=== PATIENT | female | born 1955 | race Hispanic/Latino ===

== ENCOUNTER → 2016-10-23 | Outpatient (CLI) | payer MEDICAID ==
[~2016-10-23] MED LIST: ACYC800T PO; AMITRIP TOP; ASPI-587 PO; ATEN-155 PO; ATEN25TA PO; ATOV750O4 PO; BENZ200C25 PO; CARB15DR74 OU; CARB1DRO4 OP; CHOL10003 PO; CIPR-225 PO; CLON0.5T3 PO; D50KC PO; EMU OIL TOP; FAMO-119 PO; FAMO20TA5 PO; GABA TOP; GLIP10TA13 PO; HYDR500C2 PO; INSU100I10 SQ; INSU100I14 SQ; INSU100I29 SQ; LEVO100T7 PO; LEVO500T2 PO; LEVO500T69 PO; LEVO50TA6 PO; MAGN400T29 PO; METF1000 PO; METO5TAB75 PO; MINE114O TP; NFVALG450T PO; OMEG1CAP51 PO; OMEP40CA36 PO; ONDA4TAB8 PO; ONDA8TAB9 PO; POSA100T PO; POTA-51 PO; POTA20TA15 PO; PRAV20TA PO; PRD10T PO; PRED-501 PO; SENN-20 PO; SODI650T PO; VALG450T3 PO
--- OUTSIDE RECORDS SUMMARY | 2016-10-23 11:49 | XMS REPORT | Continuity of Care Document ---
Author Author [facility] Organization [facility] Address Unknown Phone Unavailable Care Team Providers Care Planisher Name Role Phone No Pcp, Na PCP Unavailable Source Comments Some departments are not documenting in the electronic medical record. If you do not see the information that you expected, contact Release of Information in the Health Information Management department at [phone] for further assistance in locating additional records.[facility] Active Allergies and Adverse Reactions No Known Allergies Current Medications Prescription Sig. Disp. Refills Start End Date Status Date ondansetron (ZOFRAN ODT) Take 1 Tab by mouth every 30 Tab 0 04/20/20 Active 8 mg rapid dissolve 8 hours as needed for 16 tablet Nausea. emu Apply 120 mL topically to 09/18/20 Active affected area as Needed 16 (apply to affected area). mineral oil/white apply to hands and 09/18/20 Active petrolatum (ABSORBASE) affected areas as needed 16 oint insulin glargine (LANTUS Inject 12 Units under the 3 Package 3 Active SOLOSTAR) 100 unit/mL (3 skin at bedtime daily. 16 mL) injection PEN cholecalciferol (VITAMIN Take 2 Tabs by mouth 90 Tab 09/18/20 Active D-3) 1,000 units tablet daily. 16 AMITRIPTYLINE HCL apply every 8 hours 09/18/20 Active (AMITRIPTYLINE/GABAPENTIN 16 /EMU OIL(#)) 4/4/10 % insulin aspart (NOVOLOG Inject 0-14 Units under 3 Package 3 09/18/20 Active FLEXPEN) 100 unit/mL the skin before meals and 16 injection PEN at bedtime. acyclovir (ZOVIRAX) 800 Take 1 Tab by mouth twice 60 Tab 5 10/09/20 Active mg tablet daily. ON HOLD WHILE ON 16 VALCYTE insulin aspart (NOVOLOG Inject 12 Units under the 3 Package 3 Active FLEXPEN) 100 unit/mL skin three times daily 16 injection PEN with meals. potassium chloride SR Take 2 Tabs by mouth 90 Cap 3 10/09/20 Active (K-DUR) 20 mEq tablet twice daily with meals. 16 Take with a meal and a full glass of water. prednisone (DELTASONE) 10 Take 2 Tabs by mouth 150 Tab 2 10/13/19 Active mg tablet twice daily with meals. [address](+) Take 1 Cap by mouth daily 90 Cap 3 10/13/19 Active (PRILOSEC) 40 mg capsule before breakfast. 17 nystatin (MYCOSTATIN) Take 5 mL by mouth four 473 mL 0 10/13/19 Active 100,000 units/mL oral times daily. 17 suspension atovaquone (MEPRON) 750 Take 10 mL by mouth daily 210 mL 1 10/13/19 Active mg/5 mL oral suspension with breakfast. 17 levothyroxine (SYNTHROID) Take 1 Tab by mouth daily 90 Tab 3 10/13/19 Active 50 mcg tablet 30 minutes before 17 breakfast. lancets (ACCU-CHEK To check blood sugars 100 Each 3 10/13/19 Active FASTCLIX) MISC before meals and at bed 17 time. posaconazole EC (NOXAFIL) Take 3 tabs twice a day 10/13/19 Active 100 mg tablet for one day then take 3 17 tabs daily in the morning clonazePAM (KLONOPIN) 0.5 Take 0.5 Tabs by mouth at 60 Tab 5 10/13/19 Active mg tablet bedtime daily. 17 carboxymethylcellulose Apply 1 Drop to both eyes 50 Each 4 10/13/19 Active (REFRESH PLUS) 0.5 % dpet four times daily. 17 Insulin Morven Use as needed for insulin 100 Each 6 10/16/19 Active (Disposable) 31 gauge x administration 17 /" ndle ergocalciferol (VITAMIN Take 1 Cap by mouth every 4 Cap 2 10/19/19 Active D-2) 50,000 unit capsule 7 days. 17 sodium bicarbonate 650 mg Take 2 Tabs by mouth 60 Tab 3 10/20/19 Active tablet twice daily. 17 blood sugar diagnostic 1 Strip before meals and 100 Strip 6 10/20/19 Active (ONETOUCH VERIO) test at bedtime. 17 strip Blood-Glucose Meter mis One Touch Verio meter 1 Each 0 10/20/19 Active 17 valGANciclovir (VALCYTE) Take 2 Tabs by mouth 120 Tab 1 10/21/19 Active 450 mg tablet daily with breakfast. 17 Changed to maintenance dosing on 10/21/2016 Lancets (ACCU-CHEK To check blood sugars 100 Each 3 04/20/20 Discontin FASTCLIX) misc before meals and at bed 16 17 ued time. blood sugar diagnostic To check blood sugars 100 Strip 3 05/11/20 Discontin (ACCU-CHEK SMARTVIEW TEST before meals and at bed 16 16 ued STRIP) test strip time. acyclovir (ZOVIRAX) 800 Take 1 Tab by mouth twice 60 Tab 5 07/14/20 10/09/20 Discontin mg tablet daily. Resumed 06/01 16 16 ued clonazePAM (KLONOPIN) 0.5 Take 0.5 Tabs by mouth at 60 Tab 5 09/18/20 10/13/19 Discontin mg tablet bedtime daily. 16 17 ued micafungin (MYCAMINE) 50 Administer 50 mg through 09/18/20 10/13/19 Discontin mg/5 mL 50 mg in sodium vein every 24 hours. 16 17 ued chloride 0.9% (NS) 0.9 % 100 mL IVPB (MB+) atovaquone (MEPRON) 750 Take 10 mL by mouth daily 1 09/18/20 Discontin mg/5 mL oral suspension with breakfast. 16 16 ued carboxymethylcellulose Apply 1 Drop to both eyes 09/18/20 10/10/20 Discontin (REFRESH PLUS) 0.5 % dpet four times daily. 16 16 ued ursodiol (LISANDRA) 250 mg Take 2 Tabs by mouth 09/18/20 10/10/20 Discontin tablet twice daily with meals. 16 16 ued calcium gluconate 100 Administer 2 g through 09/18/20 10/09/20 Discontin mg/mL (10%) 2 g in sodium vein every 12 hours as 16 16 ued chloride 0.9% (NS) 0.9 % needed (ionized calcium < 100 mL IVPB 1.0). budesonide (ENTOCORT EC) Take 1 Cap by mouth twice 09/18/20 10/10/20 Discontin 3 mg capsule daily. 16 16 ued magnesium sulfate pgbk Administer 100 mL through 1000 mL 09/18/20 [address]contin vein as Needed (See admin 16 16 ued instructions). BECLOMETHASONE Take 1 mL by mouth four 09/18/20 10/10/20 Discontin DIPROPIONATE times daily. 16 16 ued (BECLOMETHASONE(#) IN CORN OIL) 2 mg/mL sodium phosphate 3 Administer 8 mmol through 09/18/20 10/09/20 Discontin mmol/mL 8 mmol in vein PRN (Construction Driver from 16 16 ued dextrose 5% (D5W) 250 mL Rx) (See admin IVPB instructions). potassium chloride 10 Administer 50 mL through 50 mL 09/18/20 Discontin mEq/50 mL pgbk vein as Needed (See admin 16 16 ued instructions). pantoprazole DR Take 1 Tab by mouth twice 90 Tab 3 09/18/20 Discontin (PROTONIX) 40 mg tablet daily. 16 16 ued levothyroxine (SYNTHROID) Take 1 Tab by mouth daily 90 Tab 3 09/18/20 10/13/19 Discontin 75 mcg tablet 30 minutes before 16 17 ued breakfast. vancomycin (#) (VANCOCIN) Take 5 mL by mouth every 15 mL 0 09/18/20 10/09/20 Discontin 25 mg/mL oral solution 48 hours for 6 days. 16 16 ued vancomycin (#) (VANCOCIN) Take 5 mL by mouth every 10 mL 0 09/28/20 10/09/20 Discontin 25 mg/mL oral solution 96 hours for 11 days. 16 16 ued insulin aspart (NOVOLOG Inject 6 Units under the 3 Package 3 09/18/20 10/09/20 Discontin FLEXPEN) 100 unit/mL skin three times daily 16 16 ued injection PEN with meals. prednisone (DELTASONE) 10 Take 3 Tabs by mouth 0 09/21/20 10/09/20 Discontin mg tablet daily with breakfast. 16 16 ued prednisone (DELTASONE) 10 Take 2.5 Tabs by mouth 0 09/21/20 10/09/20 Discontin mg tablet daily before dinner. 16 16 ued valGANciclovir (VALCYTE) Take 2 Tabs by mouth 30 Tab 1 10/09/2012/28 Discontin 450 mg tablet twice daily with meals. 16 17 ued prednisone (DELTASONE) 10 Take 2.5 Tabs by mouth 150 Tab 2 10/09/20 10/13/19 Discontin mg tablet twice daily with meals. 16 17 ued vancomycin (#) (VANCOCIN) Take 5 mL by mouth every 10/09/20 10/10/20 Discontin 25 mg/mL oral solution 96 hours. 16 16 ued atovaquone (MEPRON) 750 Take 10 mL by mouth daily 210 mL 1 10/10/20 10/13/19 Discontin mg/5 mL oral suspension with breakfast. 16 17 ued BECLOMETHASONE Take 1 mL by mouth four 240 mL 3 10/10/20 10/13/19 Discontin DIPROPIONATE times daily. 16 17 ued (BECLOMETHASONE(#) IN CORN OIL) 2 mg/mL blood sugar diagnostic To check blood sugars 100 Strip 3 10/10/20 Discontin (ACCU-CHEK SMARTVIEW TEST before meals and at bed 16 17 ued STRIP) test strip time. budesonide (ENTOCORT EC) Take 1 Cap by mouth twice 60 Cap 3 10/10/20 10/13/19 Discontin 3 mg capsule daily. 16 17 ued carboxymethylcellulose Apply 1 Drop to both eyes 50 Each 4 10/10/20 10/13/19 Discontin (REFRESH PLUS) 0.5 % dpet four times daily. [address] Take 1 Tab by mouth twice 90 Tab 3 10/10/20 Discontin (PROTONIX) 40 mg tablet daily. 16 17 ued ursodiol (LISANDRA) 250 mg Take 2 Tabs by mouth 60 Tab 3 10/10/20 Discontin tablet twice daily with meals. 16 17 ued vancomycin (#) (VANCOCIN) Take 5 mL by mouth every 100 mL 3 10/10/20 10/13/19 Discontin 25 mg/mL oral solution 96 hours. 16 17 ued levothyroxine (SYNTHROID) Take 1 Tab by mouth daily 90 Tab 3 10/13/19 10/13/19 Discontin 50 mcg tablet 30 minutes before 17 17 ued breakfast. valGANciclovir (VALCYTE) Take 2 Tabs by mouth 120 Tab 1 10/13/1908/30 Discontin 450 mg tablet twice daily with meals. 17 17 ued sodium bicarbonate 650 mg Take 1 Tab by mouth twice 60 Tab 3 10/20/19 10/20/19 Discontin tablet daily. 17 17 ued blood sugar diagnostic To check blood sugars 100 Strip 3 10/20/19 Discontin (ACCU-CHEK SMARTVIEW TEST before meals and at bed 17 17 ued STRIP) test strip time. 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 Hyperparathyroidism ([facility]) 06/10/2016 Onhqp-lvovfz-goyn disease, acute ([facility]) 04/16/2016 H/O peripheral stem cell transplant ([facility]) 03/03/2016 Overview: Date of Transplant: 03/02/16 Preparative Regimen: Fludarabine/Melphalan Fully ablative/reduced intensity/NST: KAYLEE Disease: AML (from [facility]) Disease status at transplant: 1st CR Cytogenetic/Fish AT DIAGNOSIS: HLA Match: 8:8 Donor & Cell source: matched sib (sister) [id number] PSC CMV: both POS ABO: both O POS Consents/Studies: 8322, blood, H&P, KAYLEE Flu/Hermila allo consent Coordinator: RUDDY MCKINNON RN Fungal pneumonia 01/24/2016 Chronic illness 12/02/2015 Severe malnutrition (HCC) 12/02/2015 AML (acute myelogenous leukemia) 11/30/2015 Retinal edema right eye 09/27/2015 Last Assessment & Plan: Improved appearance today vs previous OCT Monitor for visual change Central retinal vein occlusion of both eyes 05/31/2015 Last Assessment & Plan: Has not had ongoing retinal care d/t health issues associated with AML Needs to re-establish with Dr Abreu moving forward Referral placed Nuclear sclerosis of both eyes 04/09/2015 Last Assessment & Plan: Visual degradation not significant enough to warrant surgical intervention. Patient educated on the slow, progressive nature of the condition. Cautioned patient on the affect on driving and night vision. Monitor. Retinopathy of both eyes 04/09/2015 Overview: Leukemic/anemic retinopahty due to systemic blood disorder L ast Assessment & Plan: white centered hemes noted pseudo hopkins spots Expect resolution when systemic issues resolve Vitreous hemorrhage of both eyes ([facility]) 04/09/2015 Last Assessment & Plan: Cleared today Myeloproliferative disorder 01/21/2015 HTN (hypertension) 01/21/2015 Overview: 02/11/16-Echo: EF 55%. Normal chamber sizes. Focal, nodular thickening of what appears to be the left coronary cusp of the AV, this was present on the prior study of 12/20/15. Pulmonary artery pressure=29mmHg 12/20/15-Echo: EF 60%. Bi atrial enlargement. Mild assymmetric hypertrophy of the LV septum. Trace mitral and tricuspid valve regurgitation. Mild pulmonary hypertension (PAP=45 mmHg). Visual field defect 01/21/2015 HLD (hyperlipidemia) 01/09/2015 DM (diabetes mellitus) 01/09/2015 Resolved Problems Problem Noted Date Resolved Date Heme positive stool 08/14/2016 09/18/2016 Cytomegalovirus (CMV) viremia ([facility]) 08/13/2016 09/18/2016 Generalized edema 08/13/2016 09/22/2016 Acute respiratory failure with hypoxia ([facility]) 08/05/2016 08/13/2016 Septic shock ([facility]) 08/04/2016 08/13/2016 C. difficile diarrhea 05/16/2016 06/01/2016 CMV infection ([facility]) 05/11/2016 09/18/2016 SIM (acute kidney injury) ([facility]) 04/27/2016 05/19/2016 Decubitus ulcer, stage 2 04/22/2016 05/19/2016 Overview: Left buttock and left heel Acute respiratory failure with hypoxia and hypercapnia ([facility]) 03/23/2016 Aspiration into lower respiratory tract 03/23/2016 04/19/2016 On mechanically assisted ventilation ([facility]) 03/23/2016 04/19/2016 Successful cardiopulmonary resuscitation 03/23/2016 04/19/2016 Acute pericardial effusion 03/23/2016 04/19/2016 E coli bacteremia 03/14/2016 04/19/2016 Cellulitis 03/14/2016 04/19/2016 Hypophosphatemia 03/13/2016 04/19/2016 On total parenteral nutrition 03/11/2016 04/19/2016 Mucositis due to antineoplastic therapy 03/08/2016 04/19/2016 Headache 03/04/2016 04/19/2016 Chemotherapy-induced nausea 03/02/2016 04/19/2016 Hypercalcemia 03/02/2016 04/19/2016 Pancytopenia due to antineoplastic chemotherapy ([facility]) 12/31/20152015 Pain 12/18/2015 05/19/2016 Night sweats 12/15/2015 01/27/2016 Apical abscess 12/14/2015 01/27/2016 Hypokalemia 12/13/2015 02/29/2016 Neutropenic fever ([facility]) 12/13/2015 01/27/2016 Frontal sinus pain 12/13/2015 01/27/2016 Pancytopenia ([facility]) 11/30/2015 02/29/2016 Admission for antineoplastic chemotherapy 11/30/2015 01/27/2016 Sepsis ([facility]) 01/21/2015 01/27/2016 Thigh pain 01/21/2015 05/19/2016 SIM (acute kidney injury) ([facility]) 01/21/2015 04/19/2016 Cellulitis of labia 01/21/2015 05/11/2016 Hypophosphatemia 01/10/2015 01/27/2016 Leukocytosis 01/09/2015 01/27/2016 Most Recent Encounters Date Type Specialty Providers Description 10/23/2016 Orders Only Oncology Kandi Branham RN H/O stem cell transplant (HCC) (Primary Dx) 10/21/2016 Orders Only Oncology Radha Mccann APRN 10/20/2016 Office Visit Oncology Luis Moody MD 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remission (HCC) (Primary Dx); Bkioo-kafutc-llmv disease, acute (HCC); Type 2 diabetes mellitus with other specified complication, with long-term current use of insulin (HCC); Essential hypertension; H/O peripheral stem cell transplant (HCC); Total bilirubin, elevated; Diarrhea of infectious origin; Chemotherapy-induced neuropathy (HCC); Hypokalemia; Hypogammaglobulinemia (HCC); Cytomegalovirus (CMV) viremia (HCC) 10/20/2016 Hospital Oncology Luis Moody MD Encounter 10/20/2016 Documentation Oncology Lakshmi Guzman RN 10/19/2016 Orders Only Oncology Teresa Koch RN H/O stem cell transplant (HCC) (Primary Dx) 10/19/2016 Telephone Oncology Teresa Garsia BMT Follow-up - 180 day LTFU 10/19/2016 Orders Only Oncology Anthony Rivas APRN 10/16/2016 Hospital Oncology Luis Moody MD Encounter 10/16/2016 Nurse Only Oncology Luis Moody MD H/O stem cell transplant (HCC); 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remission (HCC); H/O peripheral stem cell transplant (HCC) 10/16/2016 Orders Only Oncology Alysa Ibarra, RAHAT Hypogammaglobulinemia (HCC) (Primary Dx) 10/16/2016 Orders Only Oncology Clovis Bustillos MD 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remission (HCC) (Primary Dx) 10/16/2016 Orders Only Oncology Teresa Koch RN 10/14/2016 Telephone Oncology Elena Nelson RN Medical Question 10/13/2016 Office Visit Oncology Luis Moody MD 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remission (HCC) (Primary Dx); H/O peripheral stem cell transplant (HCC); Thrush; Cytomegalovirus (CMV) viremia (HCC) 10/13/2016 [facility] Oncology Luis Moody MD Encounter 10/10/2016 Telephone Oncology Juanita Ken RN BMT Follow-up 10/10/2016 Refill Oncology Juanita Ken RN 10/09/2016 Orders Only Oncology Rachel Pfeiffer, RAHAT 09/21/2016 [facility] Rehabilitation Tiff Ruby MD Steroid myopathy - Encounter 10/09/2016 09/10/2016 Documentation Oncology Sara Thurston PHARMD 09/09/2016 [facility] Oncology Edward Stahl, DO Encounter 09/09/2016 Endo Rslt Enc Oncology Edward Stahl DO 09/09/2016 Endo Rslt Enc Oncology Edward Stahl DO 09/09/2016 Anesthesia Celia Garcia MD Event 09/09/2016 Surgery Russel Cornejo MD ESOPHAGOGASTRODUODENOSCOP Y 09/08/2016 [facility] Oncology Alexis Addison MD Encounter 09/02/2016 Hospital Oncology Holli John MD Encounter 09/01/2016 [facility] Oncology Annalee Virk MD Encounter 08/31/2016 Hospital Oncology Holli John MD Encounter 08/31/2016 Orders Only Oncology Marin Ndiaye, PHARMD 08/27/2016 Orders Only Oncology Saniya Webster, REMOTE ENCODING OPERATIONS SUPERVISOR 08/27/2016 Orders Only Oncology Saniya Webster, REMOTE ENCODING OPERATIONS SUPERVISOR 08/26/2016 [facility] Oncology Sandro Abreu MD Encounter 08/25/2016 [facility] Oncology Sandro Abreu MD Encounter 08/24/2016 [facility] Oncology Sandro Abreu MD Encounter 08/21/2016 [facility] Radiology Anthony Rivas APRN Encounter Milka Carter RN [place], Zackery Gallardo MD 08/19/2016 [facility] Oncology Varun Thornton MD Encounter 08/18/2016 [facility] Oncology Varun Thornton MD Encounter 08/17/2016 [facility] Oncology Varun Thornton MD Encounter 08/14/2016 [facility] Oncology Varun Thornton MD Encounter 08/13/2016 [facility] Oncology Clovis Bustillos MD Encounter 08/12/2016 [facility] Oncology Clovis Bustillos MD Encounter 08/12/2016 Result Letter Gastroenterology Niharika Lam MD 08/07/2016 Telephone Oncology Teresa Garsia BMT Follow-up - called patient to schedule 180 day post BMT testing, immunizations and result visit. 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, acute (HCC) (Primary Dx) 07/29/2016 Endo Rslt Enc Oncology Luis Moody MD 07/29/2016 Endo Rslt Enc Oncology Luis Moody MD 07/29/2016 Anesthesia Vonda Watson, SANJUANA Event 07/29/2016 Surgery Niharika Lam MD SIGMOIDOSCOPY DIAGNOSTIC 07/29/2016 Surgery Niharika Lam MD Canceled ESOPHAGOGASTRODUODENOSCOP Y 07/28/2016 [facility] Holli John MD Bdeca-aochnd-jdgs - Encounter Luis Moody MD disease, acute (HCC) 09/21/2016 Garett Henry MD Brownback, Kyle, MD Thomas, Laura, MD Dias, Ajoy, MD Singh, Anurag, MD Dunavin, Neil, MD McGuirk, Joseph, DO 07/28/2016 Office Visit Oncology Luis Moody MD 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remission (HCC) (Primary Dx); Myeloproliferative disorder; H/O peripheral stem cell transplant (HCC); Pancytopenia (HCC) 07/28/2016 [facility] Oncology Luis Moody MD Encounter 07/27/2016 Orders Only Oncology Juanita Ken, ROSARIO H/O stem cell transplant (HCC) (Primary Dx) 07/27/2016 Orders Only Oncology Taylor Gomez, ROSARIO Pancytopenia (HCC) (Primary Dx); H/O peripheral stem cell transplant (HCC); 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remission (HCC) 07/23/2016 Office Visit Oncology Annalee Virk MD Hx of stem cell transplant (HCC) (Primary Dx) 07/23/2016 [facility] Oncology Annalee Virk MD Encounter 07/23/2016 Telephone Endocrinology, Metabolism Miriam Conti , Diabetes & Genetics Immunizations Name Dates Previously Given Next Due Flu Vaccine 06/25/2016 Quadrivalent=>3 Yo (Preservative Free) Hepatitis B Vaccine Ill 10/13/2016 Patient 4 Dose IM Hib conj vaccine, 4 dose 10/13/2016 (PRP-T) IM (ActHIB) IPV 10/13/2016 Meningococcal Conjug 10/13/2016 Vaccine IM (MenACWY-D)(Menactra) Pneumococcal 10/13/2016 Vaccine(13-Oxana Peds/immunocompromised adult) Tdap Vaccine 10/13/2016 Social History Tobacco Use Types Packs/Day Years Used Date Never Smoker Smokeless Tobacco: Never Used Alcohol Use Drinks/Week oz/Week Comments No Last Filed Vital Signs Vital Sign Reading Time Taken Blood Pressure 131/73 10/20/2016 2:32 PM [employer]ED [employer]ST[employer]ER Pulse 82 10/20/2016 2:32 PM [employer]ER Temperature 36.7 C (98.1 F) 10/20/2016 2:32 PM [employer]ER Respiratory Rate 16 10/20/2016 2:32 PM [employer] Height 1.651 m (5' 5") 10/20/2016 11:18 AM [employer]ED [employer] Weight 60.8 kg (134 lb 0.6 oz) 10/20/2016 11:18 AM [employer] INST[employer]ER Body Mass Index 22.31 10/20/2016 11:18 AM [employer]ED [employer]ASS INST[employer]ER Oxygen Saturation 100% 10/20/2016 2:32 PM [employer]ED [employer]ST[employer]ER Plan of Care Date Type Specialty Providers Description 10/27/2016 Appointment Oncology Luis Moody MD [address] [facility] [address] [place] [address] [phone] (Fax) 10/27/2016 Appointment Oncology Luis Moody MD [address] [facility] [address] [place] [address] [phone] (Fax) 10/30/2016 Appointment Oncology 10/30/2016 Appointment 10/30/2016 Appointment Oncology 11/16/2016 Appointment Oncology Luis Moody MD [address] [facility] [address] [place] [address] [phone] (Fax) 11/16/2016 Appointment Oncology 02/26/2017 Appointment Endocrinology, Metabolism Miriam Conti, & Genetics [address] [facility] [address] [place] [address] [phone] (Fax) Health Maintenance Due Date Last Done Comments Physical (Comprehensive) [birth year]/10/1962 Exam Foot Exam 1974 Microalbumin 1974 Pneumonia Vaccine (Dm) 1974 Cervical Cancer Screening 1977 Colorectal Cancer 2006 Screening Dilated Eye Exam 09/27/2016 09/27/2015, 05/31/2015 Hba1c 01/07/2017 07/10/2016, 04/16/2016, 01/09/2015 Breast Cancer Screening 02/12/2017 02/13/2016 Influenza Vaccine 06/11/2017 06/25/2016 Tetanus Vaccine 10/13/2026 10/13/2016 Hepatitis C Screening Completed 01/09/2015 Pertussis Vaccine Completed 10/13/2016 Procedures from Last 3 Months Procedure Name Priority Date/Time Associated Diagnosis Comments TELEMETRY STRIPS-SCAN 09/29/2016 Results for this 5:52 AM [employer] procedure are in the results section. ECG UNCONFIRMED-SCAN 09/25/2016 Results for this 7:22 AM [employer] procedure are in the results section. ECG UNCONFIRMED-SCAN 09/25/2016 Results for this 7:22 AM [employer] procedure are in the results section. ECG UNCONFIRMED-SCAN 09/25/2016 Results for this 7:22 AM [employer] procedure are in the results section. ECG UNCONFIRMED-SCAN 09/25/2016 Results for this 7:22 AM STAINED [employer]ASS INST[employer]ER procedure are in the results section. ECG UNCONFIRMED-SCAN 09/25/2016 Results for this 7:22 AM STAINED [employer]ASS INST[employer]ER procedure are in the results section. ECG-SCAN 09/25/2016 Results for this 7:10 AM [employer]ED [employer]ASS INST[employer]ER procedure are in the results section. TELEMETRY STRIPS-SCAN 09/25/2016 Results for this 7:07 AM [employer]ER procedure are in the results section. 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 PROCEDURES-SCAN 08/21/2016 Results for this 2:02 PM [employer]ED [employer] INST[employer]ER procedure are in the results section. PROCEDURES-SCAN 08/07/2016 Results for this 7:48 AM CDT procedure are in the results section. PROCEDURES-SCAN 08/07/2016 Results for this 7:47 AM CDT procedure are in the results section. PROCEDURES-SCAN 08/07/2016 Results for this 7:47 AM CDT procedure are in the results section. CONSULT IV THERAPY TEAM STAT 08/06/2016 11:20 AM CDT CONSULT IV THERAPY TEAM STAT 08/05/2016 3:20 PM CDT PROCEDURES-SCAN 07/30/2016 Results for this 12:39 PM CDT procedure are in the results section. ESOPHAGOGASTRODUODENOSCOP 07/29/2016 Diarrhea Y 1:00 PM CDT SIGMOIDOSCOPY DIAGNOSTIC 07/29/2016 Diarrhea 1:00 PM CDT Results from Last 3 Months BLOOD BANK SAMPLE HOLD (10/20/2016 11:27 AM)Only the most recent of 14 results within the time period is included. Component Value Range BB Sample hold IN LAB Specimen Blood LDH-LACTATE DEHYDROGENASE (10/20/2016 11:27 AM)Only the most recent of 5 results within the time period is included. Component Value Range Lactate Dehydrogenase 492 (H) 100-210 U/L Specimen Blood CMV QUANT PCR-BLOOD (10/20/2016 11:27 AM)Only the most recent of 16 results within the time period is included. Component Value Range CMV DNA Quant PCR Positive for CMV CMV Bld Copies/mL 600Comment: Please note a change in conversion factor for this test. Starting 06/22/16, based on the WHO standard, 1 copy/mL is equal to 1 IU/mL. Previously, our conversion was 1 copy/mL equals 5.04 IU/mL. Please compare IU/mL and Log of IU/mL results when comparing older [place] [phone] with questions. IU/mL CMV Blood 600 LOG10 CMV 2.78 CMV Comment-Blood This assay uses analyte specific reagents to detect CMV DNA in plasma or fluid. It has not been cleared or approved by the US Food and Drug Administration. The performance characteristics were determined by the [facility]. Results should be correlated with clinical findings. Specimen Blood MAGNESIUM (10/20/2016 11:27 AM)Only the most recent of 99 results within the time period is included. Component Value Range Magnesium 1.5 (L) 1.6-2.6 mg/dL Specimen Blood COMPREHENSIVE METABOLIC PANEL (10/20/2016 11:27 AM)Only the most recent of 65 results within the time period is included. Component Value Range Sodium 139 137-147 MMOL/L Potassium 3.1 (L) 3.5-5.1 MMOL/L Chloride 113 (H) 98-110 MMOL/L Glucose 193 (H) 70-100 MG/DL Blood Urea Nitrogen 33 (H) 7-25 MG/DL Creatinine 0.71 0.4-1.00 MG/DL Calcium 9.2 8.5-10.6 MG/DL Total Protein 4.5 (L) 6.0-8.0 G/DL Total Bilirubin 1.1 0.3-1.2 MG/DL Albumin 3.0 (L) 3.5-5.0 G/DL Alk Phosphatase 133 (H) 25-110 U/L AST (SGOT) 31 7-40 U/L CO2 18 (L) 21-30 MMOL/L ALT (SGPT) 35 7-56 U/L Anion Gap 8 3-12 eGFR Non >60Comment: >60 mL/min The eGFR is not validated for use in drug dosing adjustments. Continue to use estimated creatinine clearance per dosing reference text. Please contact the Clinical Pharmacist for questions. eGFR >60Comment: >60 mL/min The eGFR is not validated for use in drug dosing adjustments. Continue to use estimated creatinine clearance per dosing reference text. Please contact the Clinical Pharmacist for questions. Specimen Blood CBC AND DIFF (10/20/2016 11:27 AM)Only the most recent of 79 results within the time period is included. Component Value Range White Blood Cells 1.8 (L) 4.5-11.0 K/UL RBC 2.12 (L) 4.0-5.0 M/UL Hemoglobin 8.3 (L) 12.0-15.0 GM/DL Hematocrit 23.8 (L) 36-45 % MCV 112.2 (H) 80-100 FL MCH 39.1 (H) 26-34 PG MCHC 34.8 32.0-36.0 G/DL RDW 26.9 (H) 11-15 % Platelet Count 44 (L) 150-400 K/UL MPV 7.4 7-11 FL Nucleated RBCs 1 K/UL Segmented Neutrophils 68 41-77 % Bands 3 0-10 % Lymphocytes 24 24-44 % Monocytes 3 (L) 4-12 % Metamyelocyte 1 % Myelocyte 1 % ANISO PRESENT POIK PRESENT Ovalocyte PRESENT MACRO PRESENT Teardrop PRESENT Platelet Estimate MKD DEC Absolute Neutrophil Count 1.27 (L) 1.8-7.0 K/UL Manual Specimen Blood PARATHYROID HORMONE (10/16/2016 12:21 PM) Component Value Range PTH Hormone 160.2 (H) 10-65 PG/ML Specimen Blood T&B CELL PANEL,BLOOD (10/16/2016 12:21 PM) Component Value Range CD3% 93.0 (H) 49-84 % CD8% 55.4 (H) 10-40 % CD4-Blood 38.1 28-63 % CD16/56% 4.8 4-25 % TT01-A[place]ka 2.0 (L) 6-27 % CD3 Count 552 (L) 600-2990 UL CD8 Count 237 062-7153 UL CD4 Count 226 (L) 440-2160 UL CD16/56 Count 28 (L) 90-640 UL CD19 Count 12 (L) 100-700 UL Specimen Blood IMMUNOGLOBULINS-IGA,IGG,IGM (10/16/2016 12:21 PM) Component Value Range IgG 216 (L) 762-1488 MG/DL IgA 25 (L) 70-390 MG/DL IgM 193 38-328 MG/DL Specimen Blood 25-OH VITAMIN D (D2 + D3) (10/16/2016 12:21 PM) Component Value Range Vitamin D(25-OH)Total 14.5 (L) 30-80 NG/ML Specimen Blood POC GLUCOSE (10/09/2016 12:04 PM)Only the most recent of 439 results within the time period is included. Component Value Range Glucose, POC 125 (H) 70-100 MG/DL TELEMETRY STRIPS-SCAN (09/29/2016 5:52 AM) Narrative Ordered by an unspecified provider. ECG UNCONFIRMED-SCAN (09/25/2016 7:22 AM) Narrative Ordered by an unspecified provider. ECG UNCONFIRMED-SCAN (09/25/2016 7:22 AM) Narrative Ordered by an unspecified provider. ECG UNCONFIRMED-SCAN (09/25/2016 7:22 AM) Narrative Ordered by an unspecified provider. ECG UNCONFIRMED-SCAN (09/25/2016 7:22 AM) Narrative Ordered by an unspecified provider. ECG UNCONFIRMED-SCAN (09/25/2016 7:22 AM) Narrative Ordered by an unspecified provider. ECG-SCAN (09/25/2016 7:10 AM) Narrative Ordered by an unspecified provider. TELEMETRY STRIPS-SCAN (09/25/2016 7:07 AM) Narrative Ordered by an unspecified provider. IONIZED CALCIUM (09/25/2016 6:44 AM)Only the most recent of 54 results within the time period is included. Component Value Range Ionized Calcium 1.31 (H) 1.0-1.3 MMOL/L Specimen Blood TRIGLYCERIDE (09/21/2016 2:00 AM)Only the most recent of 10 results within the time period is included. Component Value Range Triglycerides 366 (H) <150 MG/DL Specimen Blood PHOSPHORUS (09/21/2016 2:00 AM)Only the most recent of 76 results within the time period is included. Component Value Range Phosphorus 4.2 (H) 2.0-4.0 MG/DL Specimen Blood POTASSIUM (09/10/2016 9:15 PM)Only the most recent of 11 results within the time period is included. Component Value Range Potassium 2.9 (L) 3.5-5.1 MMOL/L Specimen Blood SURGICAL PATHOLOGY (09/09/2016 3:53 PM)Only the most recent of 2 results within the time period is included. Component Value Range PATHOLOGY REPORT [facility] [email or web address] Tricia Jerry MD, PhD, Director of Anatomic Pathology Department of Pathology and Laboratory Medicine [address] [place] [id number] Surgical Pathology Office: [phone] SURGICAL PATHOLOGY REPORT NAME: DONNA PITTS SURG PATH #: [id number] MR #: [id number] SPECIMEN CLASS: SR BILLING #: [id number] ALT ID #: LOCATION: 41 DATE OF PROCEDURE: 09/09/2016 AGE: 60 SEX: F DATE RECEIVED: 09/09/2016 : 1955 TIME RECEIVED: 15:53 PHYSICIAN: RUSSEL CORNEJO DATE OF REPORT: 09/11/2016 COPY TO: DATE OF PRINTIN09/11/2016 ################################################## ###################### Final Diagnosis: A. Small intestine, "duodenal biopsies", biopsy: No diagnostic abnormality. There is no evidence of celiac sprue or GVHD. B. Stomach, "gastric biopsies", biopsy: Mild reactive gastropathy. No H. pylorilike organisms are identified on H and E stained sections. There is no evidence of GVHD. C. Large intestine, "random colon biopsies", biopsy: No diagnostic abnormality. There is no evidence of GVHD. An immunohistochemical stain (block C1) is negative for CMV. D. Large intestine, "colon ulcer biopsy", biopsy: Focal mucosal ulceration with associated acute inflammation and focal crypt loss. See comment Immunohistochemical stains (block D1) are negative for CMV, HSV-1 and HSV-2. Comment: Part D: The "colon ulcer biopsy" shows focal acute colitis with ulceration. The surrounding mucosa shows focal crypt loss. Apoptosis is not a feature in this biopsy and the changes are essentially nonspecific. The differential diagnosis includes infection, drug reaction or ischemia. Focal GVHD cannot be ruled out. Clinical correlation is recommended. Attestation: By this signature, I attest that I have personally formulated the final interpretation expressed in this report and that the above diagnosis is based upon my examination of the slides and/or other material indicated in this report. +++Electronically Signed Out By+++ ksw/09/10/2016 Interpreted by: Sara Blair M.D. 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 A. Rule out GVHD. B. Rule out GVHD. C. Rule out GVHD and CMV. D. Rule out CMV and HSV. Gross Description: A. Received in formalin labeled "duodenal biopsies" is a 1.0 x 0.2 x 0.2 cm aggregate of butler-brown soft tissue fragments. The specimen is entirely submitted in cassette A1. (jrz) B. Received in formalin labeled "gastric biopsies" is a 0.8 x 0.5 x 0.2 cm aggregate of butler-brown soft tissue fragments. The specimen is entirely submitted in cassette B1. (jrz) C. Received in formalin labeled "random colon biopsies" is a 0.6 x 0.2 x 0.2 cm aggregate of butler-brown soft tissue fragments. The specimen is entirely submitted in cassette C1. (jrz) D. Received in formalin labeled "colon ulcer biopsy" is a 0.3 x 0.2 x 0.2 cm aggregate of butler-brown soft tissue fragments. The specimen is entirely submitted in cassette D1. (jrz) ksw/09/10/2016 Shane Sage MD Resident If immunohistochemical stains and/or in situ hybridization are cited in this report, the performance characteristics were determined by the Department of Pathology and Laboratory Medicine of the [facility] ([employer]) in compliance with CLIA'88 regulations. Some of these tests rely on the use of "analyte specific reagents" and are subject to specific labeling requirements by the FDA. Known positive and negative control tissues demonstrate appropriate staining. This testing was developed by the Department of Pathology and Laboratory Medicine of the [facility]. It has not been cleared or approved by the FDA. The FDA has determined that such clearance or approval is not necessary. FLEXIBLE SIGMOIDOSCOPY (09/09/2016 2:43 PM)Only the most recent of 2 results within the time period is included. Component Value Range Provation Report Patient Name: Nitin Thompson Procedure Date: 09/09/2016 2:43 PM CSN: [id number] Date of : 1955 Gender: Female Attending Physician: Russel Cornejo MD Procedure: Flexible Sigmoidoscopy Indications: Di arrhea, r/o GVHD Providers: Russel Cornejo MD (Doctor), Seth Campa MD (Fellow), Isi Mejia RN (Nurse), Wallace aMres, Process Development Chemist (Process Development Chemist) Referring Physician: Edward Stahl Medications: Mo nitored Anesthesia Care Complications: No immediate complications. Procedure: Pre-Anesthesia Assessment: - Prior to the procedure, a History and Physical was performed, and patient medications and allergies were reviewed. The patient's tolerance of previous anesthesia was also reviewed. The risks and benefits of the procedure and the sedation options and risks were discussed with the patient. All questions were answered, and informed consent was obtained. Prior Anticoagulants: The patient has taken no previous anticoagulant or antiplatelet agents. ASA Grade Assessment: IV - A patient with severe systemic disease that is a constant threat to life. After reviewing the risks and benefits, the patient was deemed in satisfactory condition to undergo the procedure. After obtaining informed consent, the endoscope was passed under direct vision. Throughout the procedure, the patient's blood pressure, pulse, and oxygen saturations were monitored continuously. The Endoscope [id number] was introduced through the anus and advanced to the splenic flexure. The flexible sigmoidoscopy was accomplished without difficulty. The patient tolerated the procedure well. The quality of the bowel preparation was good. Findings: A moderate amount of semi-liquid stool was found in the entire colon, interfering with visualization. A single (solitary) three mm ulcer was found in the rectum. No bleeding was present. Biopsies were taken with a cold forceps for histology to rule out CMV, HSV. An area of mildly congested mucosa was found in the rectum. Random colon biopsies taken to rule out GVHD, CMV Impression: - 3mm ulcer in the rectum. Biopsied. - Congested mucosa in the rectum. - Random colon biopsies taken to rule out GVHD. Estimated Blood Loss: Estimated blood loss was minimal. Recommendation: - Patient has a contact number available for emergencies. The signs and symptoms of potential delayed complications were discussed with the patient. Return to normal activities tomorrow. Written discharge instructions were provided to the patient. - Continue present medications. - Resume previous diet. - Await pathology results. Scope In: 3:07:00 PM Scope Out: 3:13:11 PM Total Procedure Duration Time 0 hours 6 minutes 11 seconds Procedure Code(s): --- Professional --- 02906, Sigmoidoscopy, flexible; with biopsy, single or multiple CPT copyright 2015 [employer] [place] [employer]. All rights reserved. The codes documented in this report are preliminary and upon computer language coder review may be revised to meet current compliance requirements. Attending Participation: I personally performed the entire procedure. I was present and participated during the entire procedure, including non-omalley portions. MD Russel Bernardo MD 09/09/2016 3:31:48 PM The attending physician has electronically signed and finalized this document. Seth Campa MD Number of Addenda: 0 Note Initiated On: 09/09/2016 2:43 PM EGD (09/09/2016 2:42 PM)Only the most recent of 2 results within the time period is included. Component Value Range Provation Report Patient Name: Nitin Thompson Procedure Date: 09/09/2016 2:42 PM [facility]: [id number] Date of : 1955 Gender: Female Attending Physician: Russel Cornejo MD Procedure: Upper GI endoscopy Indications: Di agnostic sampling is indicated, Diarrhea, rule out GVHD. Providers: Russel Cornejo MD (Doctor), Seth Campa MD (Fellow), Isi Mejia RN (Nurse), Wallace Mares, Process Development Chemist (Process Development Chemist) Referring Physician: Edward Stahl Medications: Mo nitored Anesthesia Care Complications: No immediate complications. Procedure: Pre-Anesthesia Assessment: - Prior to the procedure, a History and Physical was performed, and patient medications and allergies were reviewed. The patient's tolerance of previous anesthesia was also reviewed. The risks and benefits of the procedure and the sedation options and risks were discussed with the patient. All questions were answered, and informed consent was obtained. Prior Anticoagulants: The patient has taken no previous anticoagulant or antiplatelet agents. ASA Grade Assessment: IV - A patient with severe systemic disease that is a constant threat to life. After reviewing the risks and benefits, the patient was deemed in satisfactory condition to undergo the procedure. After obtaining informed consent, the endoscope was passed under direct vision. Throughout the procedure, the patient's blood pressure, pulse, and oxygen saturations were monitored continuously. The Endoscope [id number] was introduced through the mouth, and advanced to the second part of duodenum. The upper GI endoscopy was accomplished without difficulty. The patient tolerated the procedure well. Findings: The examined esophagus was normal. Inlet pouch seen. The entire examined stomach was normal. Biopsies were taken with a cold forceps for histology to rule out GVHD. The examined duodenum was normal. Biopsies were taken with a cold forceps for histology. Impression: - Normal esophagus. - Normal stomach. Biopsied. - Normal examined duodenum. Biopsied. Estimated Blood Loss: Estimated blood loss: none. Recommendation: - Patient has a contact number available for emergencies. The signs and symptoms of potential delayed complications were discussed with the patient. Return to normal activities tomorrow. Written discharge instructions were provided to the patient. - Resume previous diet. - Continue present medications. - Await pathology results. Scope In: 2:57:38 PM Scope Out: 3:03:39 PM Total Procedure Duration Time 0 hours 6 minutes 1 second Procedure Code(s): --- Professional --- 04819, Esophagogastroduodenoscopy, flexible, transoral; with biopsy, single or multiple CPT copyright 2015 [employer] [place] [employer]. All rights reserved. The codes documented in this report are preliminary and upon computer language coder review may be revised to meet current compliance requirements. Attending Participation: I was present and participated during the entire procedure, including non-omalley portions. MD Russel Bernardo MD 09/09/2016 3:30:43 PM The attending physician has electronically signed and finalized this document. Seth Campa MD Number of Addenda: 0 Note Initiated On: 09/09/2016 2:42 PM URINE COLLECTION (09/09/2016 11:00 AM) Component Value Range Collection Period, Urine 24.0 Volume, Urine 2564 MLS TOTAL PROTEIN-URINE 24 HR (09/09/2016 11:00 AM) Component Value Range Protein, Random 11 MG/DL Protein, 24 HR 282 (H) 50-150 MG/24 HRS Specimen Urine BASIC METABOLIC PANEL (09/09/2016 6:30 AM)Only the most recent of 50 results within the time period is included. Component Value Range Sodium 139 137-147 MMOL/L Potassium 3.9 3.5-5.1 MMOL/L Chloride 107 98-110 MMOL/L CO2 27 21-30 MMOL/L Anion Gap 5 3-12 Glucose 56 (L) 70-100 MG/DL Blood Urea Nitrogen 11 7-25 MG/DL Creatinine 0.56 0.4-1.00 MG/DL Calcium 7.2 (L) 8.5-10.6 MG/DL eGFR Non >60Comment: >60 mL/min The eGFR is not validated for use in drug dosing adjustments. Continue to use estimated creatinine clearance per dosing reference text. Please contact the Clinical Pharmacist for questions. eGFR >60Comment: >60 mL/min The eGFR is not validated for use in drug dosing adjustments. Continue to use estimated creatinine clearance per dosing reference text. Please contact the Clinical Pharmacist for questions. Specimen Blood LIVER FUNCTION PANEL (09/09/2016 6:30 AM)Only the most recent of 14 results within the time period is included. Component Value Range Total Bilirubin 3.0 (H) 0.3-1.2 MG/DL Bilirubin, Direct 1.1 (H) <0.4 MG/DL Albumin 2.1 (L) 3.5-5.0 G/DL Alk Phosphatase 70 25-110 U/L AST (SGOT) 36 7-40 U/L ALT (SGPT) 50 7-56 U/L Total Protein 3.7 (L) 6.0-8.0 G/DL Specimen Blood C DIFFICILE BY PCR (09/08/2016 12:30 PM)Only the most recent of 4 results within the time period is included. Component Value Range Battery Name C DIFFICILE PCR Specimen Description FECES Special Requests NONE C. Difficile Toxin B PCR NEGATIVE-wait 7 days to repeat test Report Status FINAL 09/08/2016 Specimen Feces TRANSFUSE RBC'S NON-BLEEDING PT (09/08/2016 11:03 AM)Only the most recent of 8 results within the time period is included. Specimen Blood TYPE & CROSSMATCH (09/08/2016 2:20 AM)Only the most recent of 6 results within the time period is included. Component Value Range Units Ordered 1 Crossmatch Expires 09/11/2016 Record Check FOUND ABO/RH(D) O POS Antibody Screen NEG Patient has a history of a clinically significant antibody. Unit Number [id number] Blood Component Type RBC,ADSOL,LEUKO REDUCED,IRRADIATED Unit Division 0 Status OF Unit TRANSFUSED Transfusion Status OK TO TRANSFUSE Crossmatch Result COMPATIBLE, GEL BILIRUBIN, DIRECT (08/26/2016 3:30 AM)Only the most recent of 5 results within the time period is included. Component Value Range Bilirubin, Direct 2.7 (H) <0.4 MG/DL PROCEDURES-SCAN (08/25/2016 4:27 PM) Narrative Ordered by an unspecified provider. FIBRINOGEN (08/24/2016 2:50 AM)Only the most recent of 19 results within the time period is included. Component Value Range Fibrinogen 157 (L) 200-400 MG/DL Specimen Blood PTT (APTT) (08/24/2016 2:50 AM)Only the most recent of 18 results within the time period is included. Component Value Range APTT 24.8 24.0-40.0 SEC Specimen Blood PROTIME INR (PT) (08/24/2016 2:50 AM)Only the most recent of 19 results within the time period is included. Component Value Range INR 1.0 0.8-1.2 Specimen Blood POSACONAZOLE LC-MS/MS (08/22/2016 9:05 AM) Component Value Range Posaconazole, Serum 2.6Comment: Reference range: >0.7 Unit: mcg/mL The range listed under reference range refers to the target therapeutic range. *This test was developed and its performance characteristics determined by [facility]. It has not been cleared or approved by the U.S. Food and Drug Administration. Testing Performed At: [place] [employer] [place] [id number] CLIA ID: [id number] Specimen Blood PROCEDURES-SCAN (08/21/2016 2:02 PM) Narrative Ordered by an unspecified provider. IR CENTRAL VENOUS CATHETER (08/21/2016 11:29 AM)Only the most recent of 2 results within the time period is included. Impressions Successful placement of a right IJ Trifusion catheter. Approved by Ovidio Varela M.D. on 08/21/2016 1:27 PM By my electronic signature, I attest that I have personally reviewed the images for this examination and formulated the interpretations and opinions expressed in this report Finalized by Huey Pulliam M.D. on 08/24/2016 7:53 AM. Dictated by Ovidio Varela M.D. on 08/21/2016 1:26 PM. Narrative RIGHT INTERNAL JUGULAR TRIFUSION CATHETER PLACEMENT CLINICAL HISTORY: photophoresis requirement TECHNIQUE AND FINDINGS: I, Ra Pulliam M.D, the attending radiologist, was present for the critica l and omalley portions of the procedure with a midlevel, resident, and/or fellow participating.Overlapping portions were non omalley and I was immediately available.I interpret the critical and omalley portion of this procedure to have been needle access. After explaining the risks, benefits, and alternatives to the procedure, informed written consent was obtained. The patient was brought to the fluoroscopy suite and placed on the table in the supine position. The right neck was prepped and draped in the usual sterile fashion. Sonographic evaluation of the internal jugular demonstrates wide vessel patency and a hardcopy image was saved to PACS. Under sonographic guidance, the right internal jugular vein was accessed with a 21-gauge micropuncture needle.A 0.018 [place] wire was advanced through the needle under fluoroscopic guidance. A small transitional sheath was then placed and the [place] wire was exchanged for a 0.035 Amplatz wire. The right upper chest was then infiltrated with lidocaine to obtain local anesthetic. A tunneling device was then used to tunnel the catheter to the right IJ puncture site. A dilator sheath was inserted over the Amplatz wire into the right internal jugular vein. A peel-away sheath was then inserted over the Amplatz wire and the Amplatz wire was retracted. The catheter was inserted through the peel-away sheath. The sheath was peeled away and the catheter was positioned and checked with fluoroscopy. Confirmation of placement of the catheter tip just below the junction of the right atrium and superior vena cava was made fluoroscopically. The ports of the catheter were then flushed without difficulty. The patient tolerated the procedure well left the department in satisfactory condition. Total fluoroscopy time: 8mGy Medication: Local 2% lidocaine, 2mg Versed, 75mcg of Fentanyl. 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 Overlapping portions were non omalley and I was immediately available. I interpret the critical and omalley portion of this procedure to have been needle access. After explaining the risks, benefits, and alternatives to the procedure, informed written consent was obtained. The patient was brought to the fluoroscopy suite and placed on the table in the supine position. The right neck was prepped and draped in the usual sterile fashion. Sonographic evaluation of the internal jugular demonstrates wide vessel patency and a hardcopy image was saved to PACS. Under sonographic guidance, the right internal jugular vein was accessed with a 21-gauge micropuncture needle. A 0.018 [place] wire was advanced through the needle under fluoroscopic guidance. A small transitional sheath was then placed and the [place] wire was exchanged for a 0.035 Amplatz wire. The right upper chest was then infiltrated with lidocaine to obtain local anesthetic. A tunneling device was then used to tunnel the catheter to the right IJ puncture site. A dilator sheath was inserted over the Amplatz wire into the right internal jugular vein. A peel-away sheath was then inserted over the Amplatz wire and the Amplatz wire was retracted. The catheter was inserted through the peel-away sheath. The sheath was peeled away and the catheter was positioned and checked with fluoroscopy. Confirmation of placement of the catheter tip just below the junction of the right atrium and superior vena cava was made fluoroscopically. The ports of the catheter were then flushed without difficulty. The patient tolerated the procedure well left the department in satisfactory condition. Total fluoroscopy time: 8mGy Medication: Local 2% lidocaine, 2mg Versed, 75mcg of Fentanyl. IMPRESSION Successful placement of a right IJ Trifusion catheter. Approved by Ovidio Varela M.D. on 08/21/2016 1:27 PM By my electronic signature, I attest that I have personally reviewed the images for this examination and formulated the interpretations and opinions expressed in this report Finalized by Huey Pulliam M.D. on 08/24/2016 7:53 AM. Dictated by Ovidio Varela M.D. on 08/21/2016 1:26 PM. US ABDOMEN COMPLETE (08/18/2016 4:26 PM) Impressions 1.Liver normal in size without evidence of focal hepatic mass. 2.Portal hypertension as manifested by mild splenomegaly and abdominopelvic ascites. 3.Small left renal cyst. Finalized by Kera Fenton M.D. on 08/18/2016 4:54 PM. Dictated by Kera Fenton M.D. on 08/18/2016 4:49 PM. Narrative Ultrasound of the abdomen. Clinical history: 60-year-old female with elevated T bilirubin. Technique: Multiple real-time grayscale sonographic images were obtained throughout the abdomen. Findings: Comparison is to March 22, 2016. The liver measures 17.6 cm compared to 18.3 cm on the previous study. Discrete hepatic mass is not identified.There is no intrahepatic or extrahepatic biliary ductal dilatation. The extrahepatic common duct measures 0.5 cm. The gallbladder is surgically absent. The pancreas, where visualized, appears normal in size and echogenicity. It is partially obscured by overlying bowel gas. The right kidney measures 11.6 x 4.3 cm andappears within normal limits without evidence of hydronephrosis, nephrolithiasis or mass. The left kidney measures 12.2 x 4.0 cm. There is a small 1.4 x 0.9 x 1.47 m cyst in the inferior pole of the left kidney. No hydronephrosis or nephrolithiasis is visualized. The bladder is decompressed. A Morales catheter is in place.. The spleen is mildly enlarged measuring 15.3 cm. This compares to 14.0 cm previously. There is mild to moderate abdominopelvic ascites noted. The visualized abdominal aorta is normal in caliber. Note that it is poorly visualized due to bowel gas. 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 Clinical history: 60-year-old female with elevated T bilirubin. Technique: Multiple real-time grayscale sonographic images were obtained throughout the abdomen. Findings: Comparison is to March 22, 2016. The liver measures 17.6 cm compared to 18.3 cm on the previous study. Discrete hepatic mass is not identified. There is no intrahepatic or extrahepatic biliary ductal dilatation. The extrahepatic common duct measures 0.5 cm. The gallbladder is surgically absent. The pancreas, where visualized, appears normal in size and echogenicity. It is partially obscured by overlying bowel gas. The right kidney measures 11.6 x 4.3 cm and appears within normal limits without evidence of hydronephrosis, nephrolithiasis or mass. The left kidney measures 12.2 x 4.0 cm. There is a small 1.4 x 0.9 x 1.47 m cyst in the inferior pole of the left kidney. No hydronephrosis or nephrolithiasis is visualized. The bladder is decompressed. A Morales catheter is in place.. The spleen is mildly enlarged measuring 15.3 cm. This compares to 14.0 cm previously. There is mild to moderate abdominopelvic ascites noted. The visualized abdominal aorta is normal in caliber. Note that it is poorly visualized due to bowel gas. IMPRESSION 1. Liver normal in size without evidence of focal hepatic mass. 2. Portal hypertension as manifested by mild splenomegaly and abdominopelvic ascites. 3. Small left renal cyst. Finalized by Kera Fenton M.D. on 08/18/2016 4:54 PM. Dictated by Kera Fenton M.D. on 08/18/2016 4:49 PM. US DOPPLER VENOUS W EXTRM LEFT (08/16/2016 4:27 PM) Impressions No evidence of acute or occlusive deep venous thrombosis in the left upper extremity. Finalized by Migue Mccartney M.D. on 08/17/2016 6:57 AM. Dictated by Migue Mccartney M.D. on 08/17/2016 6:54 AM. Narrative Left upper extremity venous Doppler History: left arm/elbow swelling, Technique: Multiple 2-D real-time grayscale sonographic images were obtained throughout the left upper extremity. In addition, color and duplex Doppler images were obtained of the deep venous system. Comparison: Comparison is made to an examination 10/25/2015. Findings: There are no areas of narrowing or occlusion within the deep veins of the left upper extremity on the color Doppler examination. There is complete filling in of all examined segments. The visualized portions of the jugular vein, innominate vein, subclavian vein, axillary vein and brachial vein are widely patent. There is complete compressibility of the visualized portions of the deep veins of the left arm. The visualized portions of the superficial veins of the upper extremity including the cephalic and basilic veins are also widely patent. The previously identified catheter related thrombosis in the left basilic vein has resolved. There is no evidence of mass or loculated fluid collection. 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 In addition, color and duplex Doppler images were obtained of the deep venous system. Comparison: Comparison is made to an examination 10/25/2015. Findings: There are no areas of narrowing or occlusion within the deep veins of the left upper extremity on the color Doppler examination. There is complete filling in of all examined segments. The visualized portions of the jugular vein, innominate vein, subclavian vein, axillary vein and brachial vein are widely patent. There is complete compressibility of the visualized portions of the deep veins of the left arm. The visualized portions of the superficial veins of the upper extremity including the cephalic and basilic veins are also widely patent. The previously identified catheter related thrombosis in the left basilic vein has resolved. There is no evidence of mass or loculated fluid collection. IMPRESSION No evidence of acute or occlusive deep venous thrombosis in the left upper extremity. Finalized by Migue Mccartney M.D. on 08/17/2016 6:57 AM. Dictated by Migue Mccartney M.D. on 08/17/2016 6:54 AM. HEMOGLOBIN & HEMATOCRIT (08/16/2016 11:30 AM)Only the most recent of 5 results within the time period is included. Component Value Range Hemoglobin 9.1 (L) 12.0-15.0 GM/DL Hematocrit 25.9 (L) 36-45 % Specimen Blood IONIZED CALCIUM,BG (08/14/2016 11:31 AM) Component Value Range Ionized Calcium 0.87 (L) 1.0-1.3 MMOL/L Specimen Blood ABDOMEN AP ONLY (08/14/2016 6:51 AM)Only the most recent of 5 results within the time period is included. Impressions No bowel obstruction. Finalized by Wagner Villatoro D.O. on 08/14/2016 9:17 AM. Dictated by Wagner Villatoro D.O. on 08/14/2016 9:16 AM. Narrative Supine abdomen Clinical history: Continued abdominal distention, fluid Comparison: August 07, 2016 Findings: Interval removal of the nasoenteric catheter. Several surgical clips are redemonstrated within the upper abdomen. The bowel gas pattern is nonobstructive. Procedure Note Interface, Radiant Results - WedAug 14, 2016 9:20 AM CDT Supine abdomen Clinical history: Continued abdominal distention, fluid Comparison: August 07, 2016 Findings: Interval removal of the nasoenteric catheter. Several surgical clips are redemonstrated within the upper abdomen. The bowel gas pattern is nonobstructive. IMPRESSION No bowel obstruction. Finalized by Wagner Villatoro D.O. on 08/14/2016 9:17 AM. Dictated by Wagner Villatoro D.O. on 08/14/2016 9:16 AM. CULTURE-BLOOD W/SENSITIVITY (08/10/2016 4:00 PM)Only the most recent of 11 results within the time period is included. Component Value Range Battery Name BLOOD CULTURE Specimen Description BLOOD WHITE LUMEN R IJ Special Requests aerobic bottle only Culture NO GROWTH 5 DAYS Report Status FINAL 08/16/2016 Specimen Blood PLATELET COUNT (08/09/2016 12:15 PM) Component Value Range Platelet Count 26 (L) 150-400 K/UL Specimen Blood PREPARE APHERESIS PLATELETS (08/09/2016 7:07 AM)Only the most recent of 2 results within the time period is included. Component Value Range Units Ordered 1 Unit Number [id number] Blood Component Type APHERESIS PLT,LEUKO REDUCED,IRRADIATED,2ND CONT. Unit Division 0 Status OF Unit TRANSFUSED Transfusion Status OK TO TRANSFUSE Specimen Other (Specify) HAPTOGLOBIN (08/08/2016 4:10 PM)Only the most recent of 3 results within the time period is included. Component Value Range Haptoglobin 90 16-200 MG/DL Specimen Blood PERIPHERAL SMEAR (08/08/2016 4:10 PM)Only the most recent of 3 results within the time period is included. Component Value Range Peripheral Smear NO QUALITATIVE MORPHOLOGIC ABNORMALITIES OF DIAGNOSTIC SIGNIFICANCE. Pathologist Signature INTERPRETED BY LINDSEY MORENO M.D. By the PATH SIGNATURE ABOVE, I attest that I have personally formulated the final interpretation expressed in this report and that the above diagnosis is based upon my examination of the slides and/or other material indicated in this report. Specimen Blood O2 SATURATION, CENTRAL VENOUS (08/08/2016 4:00 AM)Only the most recent of 15 results within the time period is included. Component Value Range O2 Sat, Central Venous 65.7 % Specimen Blood BLOOD GASES, ARTERIAL (08/08/2016 4:00 AM)Only the most recent of 14 results within the time period is included. Component Value Range pH-Arterial 7.47 (H) 7.35-7.45 pCO2-Arterial 44 35-45 MMHG pO2-Arterial 109 (H) 80-100 MMHG Base Excess-Arterial 7.2 MMOL/L O2 Sat-Arterial 96.7 95-99 % Rofptmebthk-XYD-Jlq 31.0 (H) 21-28 MMOL/L Specimen Blood, arterial - Blood CBC (08/07/2016 4:05 PM)Only the most recent of 2 results within the time period is included. Component Value Range White Blood Cells 4.3 (L) 4.5-11.0 K/UL RBC 2.04 (L) 4.0-5.0 M/UL Hemoglobin 7.3 (L) 12.0-15.0 GM/DL Hematocrit 20.7 (L) 36-45 % MCV 101.9 (H) 80-100 FL MCH 35.7 (H) 26-34 PG MCHC 35.0 32.0-36.0 G/DL RDW 19.2 (H) 11-15 % Platelet Count 21 (LL)Comment: 150-400 K/UL Critical Result PLT:Called to DORITA Ronquillo at: 16:53:53 by: PRISCILLA Read back by: DORITA Ronquillo MPV 8.2 7-11 FL Specimen Blood HEPARIN INDUCED PLT AB (HIT) (08/07/2016 8:30 AM) Component Value Range Heparin Induced Plt AB NEGATIVEComment: TEST PERFORMED BY [facility] Heparin AB OD 0.018 0.000-0.499 Specimen Blood LACTIC ACID (BG - RAPID LACTATE) (08/07/2016 8:30 AM)Only the most recent of 10 results within the time period is included. Component Value Range Lactic Acid,BG 3.0 (H) 0.5-2.0 MMOL/L Specimen Blood PROCEDURES-SCAN (08/07/2016 7:48 AM) Narrative Ordered by an unspecified provider. PROCEDURES-SCAN (08/07/2016 7:47 AM) Narrative Ordered by an unspecified provider. PROCEDURES-SCAN (08/07/2016 7:47 AM) Narrative Ordered by an unspecified provider. CULTURE-CATHETER TIP W/SENSITIVITY (08/06/2016 3:00 PM) Component Value Range Battery Name CATHETER TIP CULTURE Specimen Description CATHETER TIP Special Requests NONE Culture NO GROWTH 5 DAYS Report Status FINAL 08/11/2016 Specimen Catheter Tip D-DIMER (08/06/2016 10:43 AM) Component Value Range D-Dimer 832 (H)Comment: <230 ng/mL DDU The D-dimer cut off value for deep vein thrombosis and pulmonary embolism is 230 ng/mL DDU. Specimen Blood CHEST SINGLE VIEW (08/06/2016 8:25 AM)Only the most recent of 3 results within the time period is included. Impressions Continued improvement of persistent minimal left lung base atelectasis. No evidence of CHF or pneumonia. Approved by Seth Marie M.D. on 08/06/2016 10:34 AM By my electronic signature, I attest that I have personally reviewed the images for this examination and formulated the interpretations and opinions expressed in this report Finalized by Migue Mccartney M.D. on 08/06/2016 10:55 AM. Dictated by Seth Marie M.D. on 08/06/2016 10:00 AM. Narrative CHEST SINGLE VIEW Indication: intubated patient Comparison: August 05, 2016 Findings: Endotracheal tube, nasoenteric tube, right IJ chest port catheter, and right IJ central venous catheter remain in place. The endotracheal tube tip overlies the tracheal air column well above the marie. The enteric tube is seen redundantly looped within the stomach. Cardiac silhouette and pulmonary vasculature are within normal limits. There is continued improvement of patchy left lung base opacities. No pneumothorax. Procedure Note Interface, Radiant Results - Hilda Aug 06, 2016 10:58 AM CDT CHEST SINGLE VIEW Indication: intubated patient Comparison: August 05, 2016 Findings: Endotracheal tube, nasoenteric tube, right IJ chest port catheter, and right IJ central venous catheter remain in place. The endotracheal tube tip overlies the tracheal air column well above the marie. The enteric tube is seen redundantly looped within the stomach. Cardiac silhouette and pulmonary vasculature are within normal limits. There is continued improvement of patchy left lung base opacities. No pneumothorax. IMPRESSION Continued improvement of persistent minimal left lung base atelectasis. No evidence of CHF or pneumonia. Approved by Seth Marie M.D. on 08/06/2016 10:34 AM By my electronic signature, I attest that I have personally reviewed the images for this examination and formulated the interpretations and opinions expressed in this report Finalized by Migue Mccartney M.D. on 08/06/2016 10:55 AM. Dictated by Seth Marie M.D. on 08/06/2016 10:00 AM. TROPONIN-I (08/05/2016 6:40 PM)Only the most recent of 6 results within the time period is included. Component Value Range Troponin-I 0.16 (H) 0.0-0.05 NG/ML Specimen Blood LACTIC ACID(LACTATE) (08/05/2016 2:45 PM) Component Value Range Lactic Acid 3.2 (H) 0.5-2.0 MMOL/L Specimen Blood TOBRAMYCIN RANDOM (08/05/2016 4:05 AM) Component Value Range Tobramycin Random 1.9 MCG/ML Specimen Blood PROCALCITONIN (08/04/2016 5:10 PM) Component Value Range Procalcitonin 78.95 (H) <0.10 NG/ML Specimen Blood LINE PLCMT 1V CXR (08/04/2016 2:35 PM)Only the most recent of 2 results within the time period is included. Impressions ET tube deep in right mainstem bronchus with development of small left pleural effusion and increased left basilar atelectasis. Results were called to Tanika, the patient's nurse, at the time of interpretation at 3:40 PM on August 04, 2016. Finalized by Kera Fenton M.D. on 08/04/2016 3:42 PM. Dictated by Kera Fenton M.D. on 08/04/2016 3:36 PM. Narrative LINE PLCMT 1V CXR Indication: ETT verification. Comparison: Study done earlier the same day. Findings: The heart and pulmonary vasculature are unremarkable. There is development of a small left pleural effusion with increased left basilar atelectasis. There is improved aeration in the right lung base with decreased atelectasis. No pneumothorax is identified. The ET tube lies deep within the right mainstem bronchus. Remaining visualized tubes and lines appear in similar positions. Procedure Note Interface, Radiant Results - Tue Aug 04, 2016 3:45 PM CDT LINE PLCMT 1V CXR Indication: ETT verification. Comparison: Study done earlier the same day. Findings: The heart and pulmonary vasculature are unremarkable. There is development of a small left pleural effusion with increased left basilar atelectasis. There is improved aeration in the right lung base with decreased atelectasis. No pneumothorax is identified. The ET tube lies deep within the right mainstem bronchus. Remaining visualized tubes and lines appear in similar positions. IMPRESSION ET tube deep in right mainstem bronchus with development of small left pleural effusion and increased left basilar atelectasis. Results were called to Tanika, the patient's nurse, at the time of interpretation at 3:40 PM on August 04, 2016. Finalized by Kera Fenton M.D. on 08/04/2016 3:42 PM. Dictated by Kera Fenton M.D. on 08/04/2016 3:36 PM. GRAM STAIN (08/04/2016 2:00 PM) Component Value Range Battery Name GRAM STAIN Specimen Description TRACHEAL ASPIRATE Special Requests NONE Gram Stain LESS THAN 10/LPF NEUTROPHILS LESS THAN 10/LPF SQUAMOUS EPITHELIAL CELLS NO ORGANISMS SEEN Report Status FINAL 08/05/2016 Specimen Tracheal Aspirate CULTURE-RESP,LOWER W/SENSITIVITY (08/04/2016 2:00 PM) Component Value Range Battery Name LOWER RESP CULTURE Specimen Description TRACHEAL ASPIRATE Special Requests NONE Direct Gram Stain LESS THAN 10/LPF NEUTROPHILS LESS THAN 10/LPF SQUAMOUS EPITHELIAL CELLS NO ORGANISMS SEEN Culture Light growth NORMAL OROPHARYNGEAL LOUISA Report Status FINAL 08/06/2016 Specimen Tracheal Aspirate 2-D + DOPPLER ECHOCARDIOGRAM (08/04/2016 11:59 AM) Component Value Range BSA 1.76 m2 ECHO EF 65 % LVIDD 3.3 3.9-5.3 cm LVIDS 1.6 cm IVS 1.5 0.6-0.9 cm PW 1.3 0.6-0.9 cm FS 51.52 28-44 % EF 87.58 % LA size 2.0 2.7-3.8 cm Sinus 3.1 2.1-3.5 cm AV peak velocity 2.2 m/s TV rest pulmonary artery 20 mmHg pressure E/A ratio 0.88 TDI e' 0.100 m/s E/E' ratio 7.00 MV Peak E Juan C PW 0.700 m/s MV Peak A Juan C 0.800 m/s Narrative Olyvtstnmbz=091 bpm LVEF=75%: Hyperdynamic Moderate Concentric LVH Valves Are Unremarkable But Not Well Visualized No PericardialEffusion Aortric Valve Peak Velocity Mildly Elevated Consider Hyperdynamic State: Peak Velocity=2.2m/sec PASP=20mmHg CREATININE-URINE RANDOM (08/04/2016 11:40 AM) Component Value Range Creatinine, Random 64 MG/DL Specimen Urine SODIUM-URINE RANDOM (08/04/2016 11:40 AM) Component Value Range Sodium, Random 52 MMOL/L Specimen Urine UA REFLEX CULTURE LABEL (08/04/2016 11:40 AM) Component Value Range UA Reflex Culture LAB LABEL Specimen Urine URINALYSIS MICROSCOPIC REFLEX TO CULTURE (08/04/2016 11:40 AM) Component Value Range WBCs,UA 0-2 0-2 /HPF RBCs,UA NONE 0-3 /HPF Comment,UA Urine submitted for reflex culture if criteria are met:WBC>10, positive nitrite and/or positive leukocyte esterase. If quantity is not sufficient, an addendum will follow. MucousUA 1+ Specimen Urine URINALYSIS DIPSTICK REFLEX TO CULTURE (08/04/2016 11:40 AM) Component Value Range Color,UA MARTHA Turbidity,UA CLEAR CLEAR-CLEAR Specific [place]-Urine 1.012 1.003-1.035 pH,UA 5.0 5.0-8.0 Protein,UA NEG NEG-NEG Glucose,UA NEG NEG-NEG Ketones,UA NEG NEG-NEG Bilirubin,UA NEG NEG-NEG Blood,UA 1+ (A) NEG-NEG Urobilinogen,UA NORMAL NORM-NORMAL Nitrite,UA NEG NEG-NEG Leukocytes,UA NEG NEG-NEG Urine Ascorbic Acid, UA NEG NEG-NEG Specimen Urine CORTISOL,RANDOM (08/04/2016 11:30 AM) Component Value Range Cortisol, Random 31.0 (H) 5.0-20.0 MCG/DL Specimen Blood POC BLOOD GAS ARTERIAL (08/04/2016 8:21 AM) Component Value Range PH-ART-POC 7.45 7.35-7.45 EFR3-DSE-INQ 24 (L) 35-45 MMHG PO2-ART-POC 90 80-100 MMHG Base Def-ART-POC 7.0 MMOL/L O2 Sat-ART-POC 98.0 95-99 % Exxevpjummp-HBO-EHJ 16.5 (L) 21-28 MMOL/L METHEMOGLOBIN (08/04/2016 8:10 AM) Component Value Range Methemoglobn 6.4 (H) <1.5 % Specimen Blood ASPERGILLUS (GALACTOMANNAN) AG (08/04/2016 8:00 AM) Component Value Range Aspergillus Galactomann 0.101Comment: AG Reference Value: Index value less than 0.5.- Interpretation:- Patients with an index value of greater than or equal to 0.5 are considered to be positive for galactomannan antigen.-The Platelia(TM) Aspergillus EIA package insert also recommends a new sample be collected from the patient for follow-up testing.-Patients with an index value of less than 0.5 are considered to be negative for galactomannan antigen.-A negative result may indicate that the patients result is below the detectable level of the assay.- Negative results do not rule out the diagnosis of Invasive Aspergillosis.-Pursuant to the package insert, repeat testing is recommended if the result is negative, but the disease is suspected. Due to the potential for environmental contamination when transferred to pour-off tubes, which can lead to false positive results, interpret positive results from samples provided in pour-off tubes with caution.-Results should be used in conjunction with clinical findings, and should not form the sole basis for a diagnosis or treatment decision.- The Platelia Aspergillus Galactomannan EIA is a product of [employer] and is FDA approved for in vitro diagnostic use. Testing Performed At: [facility]. [address] [place] [address] [employer] [place] [id number] CLIA ID: [id number] Specimen Blood FUNGITELL (08/04/2016 8:00 AM) Component Value Range Fungitell <31 Unit: pg/mL Interpretation: The Fungitell assay does not detect certain fungal species such as the genus Cryptococcus (Lidia et al. 1991) which produces very low levels of (1-3)-Wdzv-G-Dsqcab. The assay also does not detect the Zygomycetes such as Absidia, Mucor and Rhizopus (Hilary et al. 1994) which are not known to produce (1-3)-Ayfo-E-Anlpjj. In addition, the yeast phase of Blastomyces dermatitidis produces little (1-3)-Towh-X-Jzjxgs and may not be detected by the assay (Horace et al. 2007). Reference Range: Less than 60 pg/mL. Glucan values of less than 60 pg/mL are interpreted as negative. Glucan values of 60 to 79 pg/mL are interpreted as indeterminate, and suggest a possible fungal infection. Additional sampling and testing of sera is required to interpret the results. Glucan values of greater than or equal to 80 pg/mL are interpreted as positive. Due to the potential for environmental contamination when transferred to pour-off tubes, which can lead to false positive results, interpret positive results from samples provided in pour-off tubes with caution.-Results should be used in conjunction with clinical findings, and should not form the sole basis for a diagnosis or treatment decision. Fungitell is FDA approved or cleared for in vitro diagnostic use. Testing Performed At: [facility]. [facility] [employer] [place] [id number] CLIA ID: [id number] Specimen Blood LIPASE (08/04/2016 3:45 AM) Component Value Range Lipase 5 (L) 11-82 U/L AMYLASE (08/04/2016 3:45 AM) Component Value Range Amylase 13 (L) 24-100 U/L MANUAL DIFF (08/04/2016 3:45 AM) Component Value Range Segmented Neutrophils 61 41-77 % Bands 31 (H) 0-10 % Lymphocytes 3 (L) 24-44 % Monocytes 3 (L) 4-12 % Metamyelocyte 1 % Myelocyte 1 % Platelet Estimate SLT DEC RBC Morph ANISO POIK POLY MOLECULAR ENGRAFTMENT ANALYSIS BLOOD (STR GENOTYPING) (08/03/2016 5:56 PM) Component Value Range Engraftment Analysis SEE FEEDER OPERATOR FOR REPORT TEST PERFORMED BY [employer] Specimen Blood MYELOID ENGRAFTMENT ANALYSIS BLD (08/03/2016 5:56 PM) Component Value Range Myeloid Engraftment SEE FEEDER OPERATOR FOR REPORT Analysis BLD Specimen Blood LYMPHOID ENGRAFTMENT ANALYSIS BLOOD (08/03/2016 5:56 PM) Component Value Range Lymploid Engraftment SEE FEEDER OPERATOR FOR REPORT Analysis BLD Specimen Blood PROCEDURES-SCAN (07/30/2016 12:39 PM) Narrative Ordered by an unspecified provider. CRYPTOSPORIDUM,FECAL (07/28/2016 11:00 AM) Component Value Range Battery Name CRYPTOSPORIDIUM Specimen Description FECES Special Requests NONE Cryptosporidium NEGATIVE FOR CRYPTOSPORIDIUM Report Status FINAL 07/29/2016 Specimen Stool - Feces GIARDIA SCREEN,FECAL (07/28/2016 11:00 AM) Component Value Range Battery Name GIARDIA SCREEN Specimen Description FECES Special Requests NONE Giardia EIA NEGATIVE FOR GIARDIA (LAMBLIA) INTESTINALIS Report Status FINAL 07/29/2016 Specimen Feces VRE SCREEN (07/23/2016 11:35 AM) Component Value Range Battery Name VRE SCREEN Specimen Description PERIRECTAL SWAB Special Requests NONE Culture VRE ISOLATED Complete susceptibility testing is not performed on surveillance culture. Positive cultures indicate carrier status and do not by themselves indicate a need for treatment. Report Status FINAL 07/25/2016 Specimen Perirectal Swab
[2016-10-23 12:12] LABS: BASOPHILS % (AUTO) 0 % (0-10); EOSINOPHILS % (AUTO) 0 % (0-10); LYMPHOCYTES # (AUTO) 0.4 X 10^3 (1.0-4.0); LYMPHOCYTES % (AUTO) 19 % (12-44); MEAN CORPUSCULAR HEMOGLOBIN 39 PG (25-34); MEAN CORPUSCULAR HGB CONC 35 G/DL (32-36); MEAN CORPUSCULAR VOLUME 112 FL (80-99); MEAN PLATELET VOLUME 10.4 FL (7.4-10.4); MONOCYTES # (AUTO) 0.1 X 10^3 (0.0-1.0); MONOCYTES % (AUTO) 5 % (0-12); NEUTROPHILS # (AUTO) 1.6 X 10^3 (1.8-7.8); NEUTROPHILS % (AUTO) 76 % (42-75); PLATELET COUNT 49 10^3/uL (130-400); RED BLOOD COUNT 2.08 10^6/uL (4.35-5.85)
[2016-10-23 12:34] LABS: ALANINE AMINOTRANSFERASE 55 U/L (0-55); ANION GAP 10 MMOL/L (5-14); ASPARTATE AMINO TRANSFERASE 51 U/L (5-34); BILIRUBIN,TOTAL 1.2 MG/DL (0.1-1.0); BLOOD UREA NITROGEN 35 MG/DL (7-18); BUN/CREATININE RATIO 50; CARBON DIOXIDE 18 MMOL/L (21-32); CHLORIDE 112 MMOL/L (98-107); GFR ESTIMATED > 60; GLUCOSE 112 MG/DL (70-105); POTASSIUM 3.8 MMOL/L (3.6-5.0); SODIUM 140 MMOL/L (135-145); TOTAL PROTEIN 4.8 G/DL (6.4-8.2)
== END ==
LOC: LAB 11:42
PROVIDERS: ATTEND Internal Medicine Hematology
DX: Z94.84 Stem cells transplant status (principal)
CPT/HCPCS: 36415; 80053; 85025

== ENCOUNTER 2016-11-08 16:43 | Inpatient (IN) | payer MEDICAID ==
[~2016-11-08] VITALS: Ht 162.6 cm; Wt 63.5 kg
[~2016-11-08 16:43] MED LIST changes: -ACYC800T PO; -AMITRIP TOP; -ATOV750O4 PO; -CARB15DR74 OU; -CARB1DRO4 OP; -CHOL10003 PO; -CLON0.5T3 PO; -D50KC PO; -EMU OIL TOP; -GABA TOP; -INSU100I10 SQ; -INSU100I14 SQ; -LEVO500T2 PO; -LEVO50TA6 PO; -MAGN400T29 PO; -MINE114O TP; -NFVALG450T PO; -OMEP40CA36 PO; -ONDA8TAB9 PO; -POSA100T PO; -POTA-51 PO; -POTA20TA15 PO; -PRD10T PO; -PRED-501 PO; -SODI650T PO; -VALG450T3 PO
--- OUTSIDE RECORDS SUMMARY | 2016-11-08 16:50 | XMS REPORT | Continuity of Care Document ---
Author Author [facility] Organization [facility] 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 If you do not see the information that you expected, contact Release of Information in the Health Information Management department at [phone] for further assistance in locating additional records.[facility] Active Allergies and Adverse Reactions No Known [...] meal and a full glass of water. omeprazole DR(+) Take 1 Cap by mouth daily 90 Cap 3 10/13/19 Active (PRILOSEC) 40 mg capsule before breakfast. 17 atovaquone (MEPRON) 750 Take 10 mL by [...] % dpet four times daily. 17 Insulin Chelsea Use as needed for insulin 100 Each 6 10/16/19 Active (Disposable) 31 gauge x administration 17 10/14" ndle ergocalciferol (VITAMIN Take 1 Cap by mouth every 4 Cap 2 10/19/19 Active D-2) 50,000 unit capsule 7 days. 17 sodium bicarbonate 650 mg Take 2 Tabs by mouth 60 Tab 3 10/20/19 Active tablet twice daily. 17 blood sugar diagnostic 1 Strip before meals and 100 Strip 6 10/20/19 Active (ONETOUCH VERIO) test at bedtime. 17 strip Blood-Glucose Meter [facility] [place] Verio meter 1 Each 0 10/20/19 Active 17 valGANciclovir (VALCYTE) Take 2 Tabs by mouth 120 Tab 1 10/21/19 Active 450 mg tablet daily with breakfast. 17 Changed to maintenance dosing on 10/21/2016 magnesium oxide (MAG-OX) Take 1 Tab by mouth twice 180 Tab 3 10/30/19 Active 400 mg tablet daily. 17 prednisone (DELTASONE) 10 Take 20mg in AM. 150 Tab 2 11/04/19 Active mg tablet Decreased on 11/04. 17 Lancets (ACCU-CHEK To check blood sugars 100 Each 3 04/20/20 Discontin FASTCLIX) misc before meals and at bed 16 17 ued time. blood sugar diagnostic To check blood sugars 100 Strip 3 05/11/20 Discontin (ACCU-CHEK SMARTVIEW TEST before meals and at bed 16 16 ued STRIP) test strip time. clonazePAM (KLONOPIN) 0.5 Take 0.5 Tabs by [...] twice daily with meals. 16 16 ued budesonide (ENTOCORT EC) Take 1 Cap by mouth twice 09/18/20 10/10/20 Discontin 3 mg capsule daily. 16 16 ued BECLOMETHASONE Take 1 mL by mouth four 09/18/20 10/10/20 Discontin DIPROPIONATE times daily. 16 16 ued (BECLOMETHASONE(#) IN CORN OIL) 2 mg/mL pantoprazole DR Take 1 Tab by mouth twice 90 Tab 3 09/18/20 Discontin (PROTONIX) 40 mg tablet daily. 16 16 ued levothyroxine (SYNTHROID) Take 1 Tab by mouth daily 90 Tab 3 09/18/20 10/13/19 Discontin 75 mcg tablet 30 minutes before 16 17 ued breakfast. valGANciclovir (VALCYTE) Take 2 [...] oral solution 96 hours. 16 17 ued prednisone (DELTASONE) 10 Take 2 Tabs by mouth 150 Tab 2 10/13/19 Discontin mg tablet twice daily with meals. 17 17 ued levothyroxine (SYNTHROID) Take 1 Tab by mouth daily 90 Tab 3 10/13/19 10/13/19 Discontin 50 mcg tablet 30 minutes before 17 17 ued breakfast. nystatin (MYCOSTATIN) Take 5 mL by mouth four 473 mL 0 10/13/19 Discontin 100,000 units/mL oral times daily. 17 17 ued suspension valGANciclovir (VALCYTE) Take 2 Tabs by mouth [...] ued STRIP) test strip time. Blood-Glucose Meter [employer] One Touch Ultra blood 1 Each 0 10/20/1907/30 Discontin glucose meter 17 17 ued prednisone (DELTASONE) 10 Take 20mg in AM and 10mg 150 Tab 2 10/27/19 11/04/19 Discontin mg tablet in PM. 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 Hypomagnesemia 10/20/2016 Hypogammaglobulinemia ([facility]) 10/16/2016 Thrush 10/13/2016 Cytomegalovirus (CMV) viremia ([facility]) 10/13/2016 Hypokalemia 09/24/2016 Electrolyte imbalance 09/22/2016 Chemotherapy-induced neuropathy ([facility]) 09/22/2016 Pancytopenia due to chemotherapy ([facility]) 09/22/2016 Recurrent Clostridium difficile diarrhea 09/22/2016 Depression 08/14/2016 Anxious mood 08/14/2016 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 Hyperparathyroidism ([facility]) 06/10/2016 Nbdfw-rbbmtd-uqjc disease, acute ([facility]) 04/16/2016 H/O peripheral stem cell transplant (HCC) 03/03/2016 Overview: Date of Transplant: 03/02/16 Preparative Regimen: Fludarabine/Melphalan Fully ablative/reduced intensity/NST: KAYLEE Disease: AML (from [facility]) Disease status at transplant: 1st CR Cytogenetic/Fish AT DIAGNOSIS: HLA Match: 8:8 Donor & Cell source: matched sib (sister) [id number] PSC CMV: both POS ABO: both O [...] issues resolve Vitreous hemorrhage of both eyes (HCC) 04/09/2015 Last Assessment & Plan: Cleared today [...] positive stool 08/14/2016 09/18/2016 Cytomegalovirus (CMV) viremia ([facility]) 08/13/2016 09/18/2016 Generalized edema 08/13/2016 09/22/2016 Acute respiratory failure with hypoxia ([facility]) 08/05/2016 08/13/2016 Septic shock ([facility]) 08/04/2016 08/13/2016 C. difficile diarrhea 05/16/2016 06/01/2016 CMV infection ([facility]) 05/11/2016 09/18/2016 SIM (acute kidney injury) ([facility]) 04/27/2016 05/19/2016 Decubitus ulcer, stage 2 04/22/2016 05/19/2016 Overview: Left buttock and left heel Acute respiratory failure with hypoxia and hypercapnia ([facility]) 03/23/2016 Aspiration into lower respiratory tract 03/23/2016 04/19/2016 On mechanically assisted ventilation ([facility]) 03/23/2016 04/19/2016 Successful cardiopulmonary resuscitation 03/23/2016 04/19/2016 Acute pericardial effusion 03/23/2016 04/19/2016 E coli bacteremia 03/14/2016 04/19/2016 Cellulitis 03/14/2016 04/19/2016 Hypophosphatemia 03/13/2016 04/19/2016 On total parenteral nutrition 03/11/2016 04/19/2016 Mucositis due to antineoplastic therapy 03/08/2016 04/19/2016 Headache 03/04/2016 04/19/2016 Chemotherapy-induced nausea 03/02/2016 04/19/2016 Hypercalcemia 03/02/2016 04/19/2016 Pancytopenia due to antineoplastic chemotherapy ([facility]) 12/31/20152015 Pain 12/18/2015 05/19/2016 Night sweats 12/15/2015 01/27/2016 Apical abscess 12/14/2015 01/27/2016 Hypokalemia 12/13/2015 02/29/2016 Neutropenic fever ([facility]) 12/13/2015 01/27/2016 Frontal sinus pain 12/13/2015 01/27/2016 Pancytopenia ([facility]) 11/30/2015 02/29/2016 Admission for antineoplastic chemotherapy 11/30/2015 01/27/2016 Sepsis ([facility]) 01/21/2015 01/27/2016 Thigh pain 01/21/2015 05/19/2016 SIM (acute kidney injury) (HCC) 01/21/2015 04/19/2016 Cellulitis of labia 01/21/2015 05/11/2016 Hypophosphatemia 01/10/2015 01/27/2016 Leukocytosis 01/09/2015 01/27/2016 Most Recent Encounters Date Type Specialty Providers Description 11/07/2016 [facility] Oncology Annalee Virk MD Encounter 11/04/2016 [facility] Luis Marte MD Encounter 11/04/2016 Office Visit Oncology Luis Moody MD Hypogammaglobulinemia (HCC) (Primary Dx); 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remission (HCC); Vvdai-gouaeq-kurj disease, acute (HCC); 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HCC); Hypokalemia; Hypomagnesemia 11/04/2016 Nurse Only Oncology Luis Moody MD 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, acute (HCC); 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remission (HCC); 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HCC) 10/30/2016 [facility] Luis Marte MD Encounter 10/30/2016 Procedure visit Oncology Luis Moody MD 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[facility], [employer]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 (HCC) (Primary Dx); H/O stem cell transplant (HCC); 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HCC); 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remission (HCC) [C92.01] 10/30/2016 [facility] Annalee Virk MD Encounter 10/30/2016 Refill Oncology Taylor Gomez RN 10/27/2016 Office Visit Oncology Luis Moody MD 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, acute (HCC) (Primary Dx); 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remission (HCC); Pancytopenia due to chemotherapy (HCC); Steroid myopathy; 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HCC) 10/27/2016 [facility] Luis Marte MD Encounter 10/23/2016 Orders Only Oncology Kandi Branham RN H/O stem cell transplant (HCC) (Primary Dx) 10/21/2016 Orders Only Oncology Radha Mccann APRN 10/20/2016 Office Visit Oncology Luis Moody MD 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remission (HCC) (Primary Dx); Kbvsj-fcgjtz-imot disease, acute (HCC); Type 2 diabetes mellitus [...] Orders Only Oncology Anthony Rivas APRN 10/16/2016 [facility] Oncology Luis Moody MD Encounter 10/16/2016 Nurse [...] (HCC); Thrush; Cytomegalovirus (CMV) viremia (HCC) 10/13/2016 Hospital Oncology Luis Moody MD Encounter 10/10/2016 Telephone Oncology Juanita Ken RN BMT Follow-up 10/10/2016 Refill Oncology Juanita Ken RN 10/09/2016 Orders Only Oncology Rachel Pfeiffer, RAHAT 09/21/2016 [facility] Tiff Ruby MD Steroid myopathy - Encounter 10/09/2016 09/10/2016 Documentation Oncology Sara Thurston, PHARMD 09/09/2016 Hospital Oncology Edward Stahl DO Encounter 09/09/2016 Endo Rslt Enc Oncology Edward Stahl, DO 09/09/2016 Endo [facility]slt Enc Oncology Edward Stahl, 09/09/2016 Anesthesia Celia Garcia MD Event 09/09/2016 Surgery Russel Cornejo MD ESOPHAGOGASTRODUODENOSCOP Y 09/08/2016 Hospital Oncology Alexis Addison MD Encounter 09/02/2016 [facility] Oncology Holli John MD Encounter 09/01/2016 [facility] Oncology Annalee Virk MD Encounter 08/31/2016 [facility] Oncology Holli John MD Encounter 08/31/2016 Orders Only Oncology Marin Ndiaye, PHARMD 08/27/2016 Orders Only Oncology Darin, Saniya, [employer]ATIONS SUPERVISOR 08/27/2016 Orders Only Oncology Darin, Saniya, [employer] INSTALLATIONS SUPERVISOR 08/26/2016 Hospital Oncology Sandro Abreu MD Encounter 08/25/2016 [facility] Oncology Sandro Abreu MD Encounter 08/24/2016 [facility] Oncology Sandro Abreu MD Encounter 08/21/2016 [facility] Radiology Anthony Rivas, [employer]ATIONS SUPERVISOR Encounter Milka Carter RN [place], Zackery Gallardo MD 08/19/2016 [facility] Oncology Varun Thornton MD Encounter 08/18/2016 [facility] Oncology Varun Thornton MD Encounter 08/17/2016 [facility] Oncology Varun Thornton MD Encounter 08/14/2016 [facility] Oncology Varun Thornton MD Encounter 08/13/2016 [facility] Oncology Clovis Bustillos MD Encounter 08/12/2016 [facility] Oncology Clovis Bustillos MD Encounter 08/12/2016 Result Letter Gastroenterology Niharika Lam MD 07/28/2016 [facility] Holli John MD Cdoao-gfgbxh-zmzk - Encounter Luis Moody MD disease, acute (HCC) 09/21/2016 Garett Henry MD Brownback, Kyle, MD Thomas, Laura, MD Dias, Ajoy, MD Singh, Anurag, MD Dunavin, Neil, MD McGuirk, Joseph, DO Immunizations Name Dates Previously Given Next Due [...] Vital Sign Reading Time Taken Blood Pressure 137/84 11/07/2016 8:57 AM BILL CLERK Pulse 93 11/07/2016 8:57 AM BILL CLERK Temperature 36.8 C (98.3 F) 11/07/2016 8:57 AM BILL CLERK Respiratory Rate 16 11/04/2016 12:38 PM BILL CLERK Height 1.651 m (5' 5") 11/07/2016 8:57 AM BILL CLERK Weight 66.044 kg (145 lb 9.6 oz) 11/07/2016 8:57 AM BILL CLERK Body Mass Index 24.23 11/07/2016 8:57 AM BILL CLERK Oxygen Saturation 99% 11/07/2016 8:57 AM BILL CLERK Plan of Care Date Type Specialty Providers Description 11/10/2016 Appointment Oncology Annalee Virk MD [address] [facility] [address] [place] [address] [phone] (Fax) 11/10/2016 Appointment Oncology Annalee Virk MD [address] [facility] [address] [place] [address] [phone] (Fax) 11/16/2016 Appointment Oncology 11/16/2016 Appointment Oncology Luis Moody MD [address] [facility] [address] [place] [address] [phone] (Fax) 02/26/2017 Appointment Endocrinology, Metabolism Miriam Conti, & Genetics [address] [facility] [address] [place] [address] [phone] (Fax) Health Maintenance Due Date Last Done [...] STRIPS-SCAN 09/29/2016 Results for this 5:52 AM BILL CLERK procedure are in the results section. ECG UNCONFIRMED-SCAN 09/25/2016 Results for this 7:22 AM BILL CLERK procedure are in the results section. ECG UNCONFIRMED-SCAN 09/25/2016 Results for this 7:22 AM BILL CLERK procedure are in the results section. ECG UNCONFIRMED-SCAN 09/25/2016 Results for this 7:22 AM BILL CLERK procedure are in the results section. ECG UNCONFIRMED-SCAN 09/25/2016 Results for this 7:22 AM BILL CLERK procedure are in the results section. ECG UNCONFIRMED-SCAN 09/25/2016 Results for this 7:22 AM BILL CLERK procedure are in the results section. ECG-SCAN 09/25/2016 Results for this 7:10 AM BILL CLERK procedure are in the results section. TELEMETRY STRIPS-SCAN 09/25/2016 Results for this 7:07 AM BILL CLERK procedure are in the results section. 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 PROCEDURES-SCAN 08/21/2016 Results for this 2:02 PM BILL CLERK procedure are in the results section. Results from Last 3 Months MAGNESIUM (11/07/2016 8:58 AM)Only the most recent of 86 results within the time period is included. Component Value Range Magnesium 1.5 (L) 1.6-2.6 mg/dL Specimen Blood COMPREHENSIVE METABOLIC PANEL (11/07/2016 8:58 AM)Only the most recent of 57 results within the time period is included. Component Value Range Sodium 140 137-147 MMOL/L Potassium 3.5 3.5-5.1 MMOL/L Chloride 106 98-110 MMOL/L Glucose 158 (H) 70-100 MG/DL Blood Urea Nitrogen 22 7-25 MG/DL Creatinine 0.70 0.4-1.00 MG/DL Calcium 9.0 8.5-10.6 MG/DL Total Protein 4.8 (L) 6.0-8.0 G/DL Total Bilirubin 0.9 0.3-1.2 MG/DL Albumin 3.0 (L) 3.5-5.0 G/DL Alk Phosphatase 207 (H) 25-110 U/L AST (SGOT) 45 (H) 7-40 U/L CO2 27 21-30 MMOL/L ALT (SGPT) 54 7-56 U/L Anion Gap 7 3-12 eGFR Non >60Comment: >60 mL/min The [...] for questions. Specimen Blood CBC AND DIFF (11/07/2016 8:58 AM)Only the most recent of 71 results within the time period is included. Component Value Range White Blood Cells 3.6 (L) 4.5-11.0 K/UL RBC 2.17 (L) 4.0-5.0 M/UL Hemoglobin 8.7 (L) 12.0-15.0 GM/DL Hematocrit 25.6 (L) 36-45 % MCV 117.9 (H) 80-100 FL MCH 40.2 (H) 26-34 PG MCHC 34.1 32.0-36.0 G/DL RDW 20.3 (H) 11-15 % Platelet Count 59 (L) 150-400 K/UL MPV 8.1 7-11 FL Segmented Neutrophils 73 41-77 % Bands 4 0-10 % Lymphocytes 11 (L) 24-44 % Monocytes 7 4-12 % Metamyelocyte 3 % Myelocyte 2 % ANISO PRESENT HYPO PRESENT POLY PRESENT Absolute Neutrophil Count 2.77 1.8-7.0 K/UL Manual Specimen Blood CMV QUANT PCR-BLOOD (11/04/2016 12:27 PM)Only the most recent of 16 results within the time period is included. Component Value Range CMV DNA Quant PCR Negative for CMV CMV Comment-Blood This assay uses analyte specific reagents to detect CMV DNA in plasma or fluid. It has not been cleared or approved by the US Food and Drug Administration. The performance characteristics were determined by the [facility]. Results should be correlated with clinical findings. Specimen Blood BONE MARROW (10/30/2016 5:55 PM) Component Value Range PATHOLOGY REPORT [facility] [email or web address] Tricia Jerry MD, PhD, Director of Anatomic Pathology Department of Pathology and Laboratory Medicine [address] [place] [phone] Surgical Pathology Office: [phone] SURGICAL PATHOLOGY REPORT NAME: DONNA PITTS SURG PATH #: [id number] MR #: [id number] ALT ID #: LOCATION: [facility] DATE OF PROCEDURE: 10/30/2016 AGE: 60 SEX: F DATE RECEIVED: 10/30/2016 : 1955 TIME RECEIVED: 17:55 PHYSICIAN: Annalee Virk MD DATE OF REPORT: 11/02/2016 COPY TO: DATE OF PRINTIN11/02/2016 ################################################## ###################### Final Diagnosis: Bone marrow, left iliac crest, aspirate, biopsy, clot, and touch prep: Normocellular marrow (40-50%), increased erythropoiesis, and less than 1% blasts Peripheral blood smear: Macrocytic anemia, absolute lymphopenia, and thrombocytopenia Attestation: By this signature, I attest that I have personally formulated the final interpretation expressed in this report and that the above diagnosis is based upon my examination of the slides and/or other material indicated in this report. +++Electronically Signed Out+++ ks11/02/2016 Interpreted by: Lindsey Moreno MD, Attending Physician PHILIPPE Riley, MPH, M.D. Fellow Material Received: A: left bone marrow clot B: left bone marrow biopsy History: 60-year-old female with a history of acute myeloid leukemia, status post-transplant Gross Description: A. Received in Zinc formalin labeled "bone marrow clot left" is a 1.5 x 1.0 x 0.3 cm aggregate of friable red-brown clotted blood elements. The specimen is entirely submitted in cassette A1. ([facility]) B. Received in Zinc formalin labeled "bone marrow biopsy left" is a 0.5 cm in length and 0.2 cm in diameter cylindrical, yellow-butler firm piece of tissue. The specimen is submitted in cassette B1 after decalcification. (jrz) ksw11/02/2016 Steve Agee M.D. Resident Microscopic Description: CBC Data: HGB 8.1 (g/dL); RBC 2.02 (m/uL); MCV 117.7 (FL); RDW 24.1 (%); WBC 2.3 (k/uL); PLT 43 (k/uL). Blood Smear Diff (%): Segmented neutrophils 80; band neutrophils 0; lymphocytes 12; monocytes 6; eosinophils 1; basophils 0; atypical lymphocytes 0; metamyelocytes 0; myelocytes 1; promyelocytes 0; blasts 0; (Nuc RBC=0 per 100 WBC ) Blood Smear Morphology: RBC: Microcytic anemia WBC: Normal Platelets: Thrombocytopenia Bone Marrow Aspirate/Touch Prep Morphology: Aspirate Adequacy: Adequate Touch Prep Adequacy: Adequate Cellularity: Normal Megakaryocytes: Normal Blasts: Normal Erythroid: Normal Granulocytes: Normal Lymphocytes: Normal Plasma Cells: Normal Bone Marrow Differential Cell Count (%): Blasts: 0 Promyelocytes: 7 Myelocytes: 7 Metamyelocytes: 5 Segs/Bands: 10 Eosinophils: 0 Erythroid: 62 Monocytes: 3 Lymphocytes: 6 Plasma cells: 0 M:E ratio: 0.5 Bone Marrow Core Biopsy: Adequacy: Suboptimal, aspiration artifacts Length: 0.5 cm Cellularity: 40% Megakaryocytes: Normal Hematopoiesis: Resembles aspirate smear / touch prep Atypical Infiltrates: None Bone Marrow Cell Clot: Adequacy: Adequate Cellularity: 50% Pertinent Findings: Resembles core biopsy Additional Stains: Iron Stain: Not Performed Immunohistochemistry: Not Performed In Situ Hybridization: Not Performed Other Special Stains: Not Performed Ancillary Studies: Flow Cytometry: Performed, see separate report Cytogenetics: Performed, see separate report Preliminary Diagnosis: Not Performed If immunohistochemical stains and/or in situ hybridization are cited in this report, the performance characteristics were determined by the Department of Pathology and Laboratory Medicine of the [facility] ([employer]) in compliance with CLIA'88 regulations. Some of these tests rely on the use of "analyte specific reagents" and are subject to specific labeling requirements by the FDA. Known positive and negative control tissues demonstrate appropriate staining. This testing was developed by the Department of Pathology and Laboratory Medicine of the [facility]. It has not been cleared or approved by the FDA. The FDA has determined that such clearance or approval is not necessary. BIOPSY BONE MARROW PROCEDURE (10/30/2016 3:57 PM)FLOW CYTOMETRY (10/30/2016 3: 48 PM) Component Value Range PATHOLOGY REPORT [facility] [email or web address] Sophia Yip MD, Director of Clinical Laboratory Karthikeyan Jordan MD, Director of Flow Cytometry Laboratory Department of Pathology and Laboratory Medicine [address] [place] [id number] Surgical Pathology Office: [phone] FLOW CYTOMETRY REPORT NAME: DONNA PITTS SURG PATH #: [id number] MR #: [id number] SPECIMEN CLASS: LC BILLING #: [id number] ALT ID #: LOCATION: [facility]2 DATE OF PROCEDURE: 10/30/2016 AGE: 60 SEX: F DATE RECEIVED: 10/30/2016 : 1955 TIME RECEIVED: 17:31 PHYSICIAN: Annalee Virk MD DATE OF REPORT: 10/31/2016 COPY TO: DATE OF PRINTIN10/31/2016 Material Received: A: Bone Marrow History: 60 year old female with a history of acute myeloid leukemia ################################################## ###################### Final Diagnosis: Bone marrow, flow cytometry: Minor population of atypical myeloid blasts (0.3%) Interpretation: Myeloid blasts comprise 0.3% of total events and show increased and aberrant expression of CD7 and CD11b. These results indicate a minor population of atypical myeloid blasts. The differential diagnosis includes reactive versus neoplastic myeloid blasts. Attestation: By this signature, I attest that I have personally formulated the final interpretation expressed in this report and that the above diagnosis is based upon my examination of the slides and/or other material indicated in this report. +++Electronically Signed Out By+++ btp/10/31/2016 Interpreted by: Lindsey Moreno MD, Attending Physician Александр Tran M.D. Resident 10/31/2016 ################################################## ###################### Lab Data: Flow Cytometry - Acute Myeloid Leukemia, Minimal Residual Disease Panel Analytic sensitivity of the lower detection limit in this assay is 0.01% Myeloid Associated Markers (% Positive Cells): IG08h=84; CD13=42; CD14=1; CD15=3; CD33=93; CD36=8; CD64=6; WW134=47; B Cell Associated Markers (% Positive Cells): CD19=0; CD22=3; T Cell Associated Markers (% Positive Cells): CD2=3; CD4=0; CD5=0; CD7=6; Miscellaneous Markers (% Positive Cells): WY46=980; CD38=99; DZ18=103; CD56=2; AW525=3; HLA-Dr=97; Cell Viability (%): n/a Number of Cells Analyzed: 165,876 Total Number of Markers: 32 Summary of Marker Combinations: 7/33/11b/34/13/45//19; Dr/117/4/34/123/45/38/19; Dr/56/36/34/64/45/14/; // This test was developed and its performance characteristics determined by the [facility] Flow [facility]ometry [facility]. It has not been cleared or approved by the U.S. Food and Drug Administration (FDA). The FDA has determined that such clearance or approval is not necessary. LEUKEMIA/LYMPHOMA PNL, BONE MARROW (10/30/2016 3:48 PM) Component Value Range Leuk/Lymph Interpretation SEE PATHOLOGY REPORT Specimen/LLM BONE MARROW Specimen Bone Marrow BONE MARROW ASP (10/30/2016 3:48 PM) Component Value Range Bone Marrow Asp SEE PATHOLOGY REPORT Specimen Bone Marrow BONE MARROW BIOPSY (10/30/2016 3:48 PM) Component Value Range Bone Marrow Bx SEE PATHOLOGY REPORT Specimen Bone Marrow PFT COMPLETE PULM FUNCTION (10/30/2016 1:13 PM) Component Value Range VCSVC-Pre 2.42 L ICSVC-Pre 1.61 L ERVSVC-Pre 0.82 L TGVPleth-Pre 2.75 L RVPleth-Pre 1.95 L RVPleth-%Pred-Pre 96 % TLCPleth-Pre 4.13 L TLCPleth-%Pred-Pre 80 % DLCOunc-Pred 21.84 ml/min/mmHg DLCOunc-Pre 12.75 ml/min/mmHg DLCOunc-%Pred-Pre 58 % DLCOunc-SD 3.75 ml/min/mmHg DLCOunc-LLN 14.34 ml/min/mmHg DLCOunc-ULN 29.34 ml/min/mmHg DLCOunc-#SD -2.423 ml/min/mmHg DLCOcor-Pred 21.84 ml/min/mmHg DLCOcor-Pre 16.19 ml/min/mmHg DLCOcor-%Pred-Pre 74 % DLCOcor-SD 3.75 ml/min/mmHg DLCOcor-LLN 14.34 ml/min/mmHg DLCOcor-ULN 29.34 ml/min/mmHg DLCOcor-#SD -1.507 ml/min/mmHg DLVA-Pred 4.42 ml/min/mmHg/L DLVA-Pre 4.17 ml/min/mmHg/L DLVA-%Pred-Pre 94 % DLVA-SD 0.80 ml/min/mmHg/L DLVA-LLN 2.82 ml/min/mmHg/L DLVA-ULN 6.02 ml/min/mmHg/L DLVA-#SD -0.313 ml/min/mmHg/L T&B CELL PANEL,BLOOD (10/30/2016 12:15 PM)Only the most recent of 2 results within the time period is included. Component Value Range CD3% 89.5 (H) 49-84 % CD8% 54.6 (H) 10-40 % CD4-Blood 34.9 28-63 % CD16/56% 7.4 4-25 % LL76-Hkjgq 2.6 (L) 6-27 % CD3 Count 220 (L) 600-2990 UL CD8 Count [phone] UL CD4 Count 86 (L) 440-2160 UL CD16/56 Count 18 (L) 90-640 UL CD19 Count 6 (L) 100-700 UL Specimen Blood PARATHYROID HORMONE (10/30/2016 12:15 PM)Only the most recent of 2 results within the time period is included. Component Value Range PTH Hormone 173.2 (H) 10-65 PG/ML Specimen Blood 25-OH VITAMIN D (D2 + D3) (10/30/2016 12:15 PM)Only the most recent of 2 results within the time period is included. Component Value Range Vitamin D(25-OH)Total 18.1 (L) 30-80 NG/ML Specimen Blood IMMUNOGLOBULINS-IGA,IGG,IGM (10/30/2016 12:15 PM)Only the most recent of 2 results within the time period is included. Component Value Range IgG 473 (L) 762-1488 MG/DL IgA 21 (L) 70-390 MG/DL IgM 114 38-328 MG/DL Specimen Blood LDH-LACTATE DEHYDROGENASE (10/30/2016 12:15 PM)Only the most recent of 5 results within the time period is included. Component Value Range Lactate Dehydrogenase 460 (H) 100-210 U/L Specimen Blood BLOOD BANK SAMPLE HOLD (10/27/2016 1:37 PM)Only the most recent of 9 results within the time period is included. Component Value Range BB Sample hold IN LAB Specimen Blood POC GLUCOSE (10/09/2016 12:04 PM)Only the most recent of 348 results within the time period is included. [...] (09/25/2016 6:44 AM)Only the most recent of 53 results within the time period is included. Component Value Range Ionized Calcium 1.31 (H) 1.0-1.3 MMOL/L Specimen Blood TRIGLYCERIDE (09/21/2016 2:00 AM)Only the most recent of 8 results within the time period is included. Component Value Range Triglycerides 366 (H) <150 MG/DL Specimen Blood PHOSPHORUS (09/21/2016 2:00 AM)Only the most recent of 62 results within the time period is included. Component Value Range Phosphorus 4.2 (H) 2.0-4.0 MG/DL Specimen Blood POTASSIUM (09/10/2016 9:15 PM)Only the most recent of 10 results within the time period is included. Component Value Range Potassium 2.9 (L) 3.5-5.1 MMOL/L Specimen Blood SURGICAL PATHOLOGY (09/09/2016 3:53 PM) Component Value Range PATHOLOGY REPORT [facility] [email or web address] Tricia Jerry MD, PhD, Director of Anatomic Pathology Department of Pathology and Laboratory Medicine [address] [place] [id number] Surgical Pathology Office: [phone] SURGICAL PATHOLOGY REPORT NAME: SAULO DONNA HERNANDEZ SURG PATH #: [id number] MR #: [id number] SPECIMEN CLASS: SR BILLING #: [id number] ALT ID #: LOCATION: 41 DATE OF [...] in this report. +++Electronically Signed Out By+++ kyw/09/10/2016 Interpreted by: Janny Cantrell MD Resident 09/11/2016 ################################################## ###################### Material Received: [...] is entirely submitted in cassette D1. (jrz) /09/10/2016 Shane Sage MD Resident If immunohistochemical stains and/or in situ hybridization are cited in this report, the performance characteristics were determined by the Department of Pathology and Laboratory Medicine of the [facility] ([employer] [facility]) in compliance with CLIA'88 regulations. Some of these tests rely on the use of "analyte specific reagents" and are subject to specific labeling requirements by the FDA. Known positive and negative control tissues demonstrate appropriate staining. This testing was developed by the Department of Pathology and Laboratory Medicine of the [facility]. It has not been cleared or approved by the FDA. The FDA has determined that such clearance or approval is not necessary. FLEXIBLE SIGMOIDOSCOPY (09/09/2016 2:43 PM) Component Value Range Provation Report Patient Name: Saulo Thompson Procedure Date: 09/09/2016 2:43 PM [facility]: [id number] Date of : 1955 Gender: Female Attending Physician: Russel Cornejo MD Procedure: Flexible Sigmoidoscopy Indications: Di arrhea, r/o GVHD Providers: Russel Cornejo MD (Doctor), Seth Campa MD (Fellow), Isi Mejia RN (Nurse), Wallace Mares, [employer] ([employer]) Referring Physician: Edward Stahl Medications: Mo nitored [...] 11 seconds Procedure Code(s): --- Professional --- 10857, Sigmoidoscopy, flexible; with biopsy, single or multiple CPT copyright 2015 [employer]. All rights reserved. The codes documented in this report are preliminary and upon floor coverer apprentice review may be revised to meet current compliance requirements. Attending Participation: I personally performed the entire procedure. I was present and participated during the entire procedure, including non-omalley portions. MD Russel Bernardo MD 09/09/2016 3:31:48 PM The attending physician has electronically signed and finalized this document. Seth Campa MD Number of Addenda: 0 Note Initiated On: 09/09/2016 2:43 PM EGD (09/09/2016 2:42 PM) Component Value Range Provation Report Patient Name: Saulo Thompson Procedure Date: 09/09/2016 2:42 PM CSN: [id number] Date of : 1955 Gender: Female Attending Physician: Russel Cornejo MD Procedure: Upper GI endoscopy Indications: Di agnostic sampling is indicated, Diarrhea, rule out GVHD. Providers: Russel Cornejo MD (Doctor), Seth Campa MD (Fellow), Isi Mejia RN (Nurse), Wallace Mares, [employer] ([employer]) Referring Physician: Edward Stahl Medications: Mo nitored [...] 1 second Procedure Code(s): --- Professional --- 20763, Esophagogastroduodenoscopy, flexible, transoral; with biopsy, single or multiple CPT copyright 2015 [employer]. All rights reserved. The codes documented in this report are preliminary and upon floor coverer apprentice review may be revised to meet current [...] (09/09/2016 6:30 AM)Only the most recent of 37 results within the time period is included. [...] (09/08/2016 12:30 PM)Only the most recent of 2 results within the time period is included. Component Value Range Battery Name C DIFFICILE PCR Specimen Description FECES Special Requests NONE C. Difficile Toxin B PCR NEGATIVE-wait 7 days to repeat test Report Status FINAL 09/08/2016 Specimen Feces TRANSFUSE RBC'S NON-BLEEDING PT (09/08/2016 11:03 AM)Only the most recent of 6 results within the time period is included. Specimen Blood TYPE & CROSSMATCH (09/08/2016 2:20 AM)Only the most recent of 5 results within the time period is included. Component Value Range Units Ordered 1 Crossmatch Expires 09/11/2016 Record Check FOUND ABO/RH(D) O POS Antibody Screen NEG Patient has a history of a clinically significant antibody. Unit Number [id number] Blood Component Type RBC,ADSOL,LEUKO REDUCED,IRRADIATED Unit Division 0 Status OF Unit TRANSFUSED Transfusion Status OK TO TRANSFUSE Crossmatch Result COMPATIBLE, GEL BILIRUBIN, DIRECT (08/26/2016 3:30 AM)Only the most recent of 4 results within the time period is included. Component Value Range Bilirubin, Direct 2.7 (H) <0.4 MG/DL PROCEDURES-SCAN (08/25/2016 4:27 PM) Narrative Ordered by an unspecified provider. FIBRINOGEN (08/24/2016 2:50 AM)Only the most recent of 17 results within the time period is included. Component Value Range Fibrinogen 157 (L) 200-400 MG/DL Specimen Blood PTT (APTT) (08/24/2016 2:50 AM)Only the most recent of 17 results within the time period is included. Component Value Range APTT 24.8 24.0-40.0 SEC Specimen Blood PROTIME INR (PT) (08/24/2016 2:50 AM)Only the most recent of 17 results within the time period is included. Component Value Range INR 1.0 0.8-1.2 Specimen Blood POSACONAZOLE LC-MS/MS (08/22/2016 9:05 AM) Component Value Range Posaconazole, Serum 2.6Comment: Reference range: >0.7 Unit: mcg/mL The range listed under reference range refers to the target therapeutic range. *This test was developed and its performance characteristics determined by [facility]. It has not been cleared or approved by the U.S. Food and Drug Administration. Testing Performed At: [facility]. [address] [place], [place] [id number] CLIA ID: [id number] Specimen Blood PROCEDURES-SCAN (08/21/2016 2:02 PM) Narrative Ordered by an unspecified provider. IR CENTRAL VENOUS CATHETER (08/21/2016 11:29 AM) Impressions Successful placement of a right IJ [...] accessed with a 21-gauge micropuncture needle.A 0.018 Rugby wire was advanced through the needle under fluoroscopic guidance. A small transitional sheath was then placed and the Rugby wire was exchanged for a 0.035 Amplatz [...] Results - WedAug 24, 2016 7:56 AM BILL CLERK RIGHT INTERNAL JUGULAR TRIFUSION CATHETER PLACEMENT CLINICAL [...] with a 21-gauge micropuncture needle. A 0.018 Rugby wire was advanced through the needle under fluoroscopic guidance. A small transitional sheath was then placed and the Rugby wire was exchanged for a 0.035 Amplatz [...] - Tue Aug 18, 2016 4:57 PM BILL CLERK Ultrasound of the abdomen. Clinical history: 60-year-old [...] Results - WedAug 17, 2016 7:00 AM BILL CLERK Left upper extremity venous Doppler History: left [...] Specimen Blood ABDOMEN AP ONLY (08/14/2016 6:51 AM) Impressions No bowel obstruction. Finalized by Wagner [...] (08/10/2016 4:00 PM)Only the most recent of 4 results [...] Specimen Blood PREPARE APHERESIS PLATELETS (08/09/2016 7:07 AM) Component Value Range Units Ordered 1 Unit Number [id number] Blood Component Type APHERESIS PLT,LEUKO REDUCED,IRRADIATED,2ND CONT. Unit Division 0 Status OF Unit TRANSFUSED Transfusion Status OK TO TRANSFUSE Specimen Other (Specify) HAPTOGLOBIN (08/08/2016 4:10 PM) Component Value Range Haptoglobin 90 16-200 MG/DL Specimen Blood PERIPHERAL SMEAR (08/08/2016 4:10 PM) Component Value Range Peripheral Smear NO QUALITATIVE [...] Blood O2 SATURATION, CENTRAL VENOUS (08/08/2016 4:00 AM) Component Value Range O2 Sat, Central Venous 65.7 % Specimen Blood BLOOD GASES, ARTERIAL (08/08/2016 4:00 AM) Component Value Range pH-Arterial 7.47 (H) 7.35-7.45 pCO2-Arterial 44 35-45 MMHG pO2-Arterial 109 (H) 80-100 MMHG Base Excess-Arterial 7.2 MMOL/L O2 Sat-Arterial 96.7 95-99 % Txlayujmzhl-GIR-Tlh 31.0 (H) 21-28 MMOL/L Specimen Blood, arterial - Blood
[2016-11-08] MEDS ORDERED: ATOV750O4 PO (17:15)
[2016-11-08] MEDS ORDERED: ACYC800T PO (17:15)
[2016-11-08] MEDS ORDERED: CHOL10003 PO (17:23)
[2016-11-08] MEDS ORDERED: INSU100I14 SQ (17:23)
[2016-11-08] MEDS ORDERED: CARB1DRO4 OP (17:23)
[2016-11-08] MEDS ORDERED: CLON0.5T3 PO (17:23)
[2016-11-08] MEDS ORDERED: D50KC PO (17:23)
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
[2016-11-08] MEDS ORDERED: POSA100T PO (17:30)
[2016-11-08] MEDS ORDERED: MAGN400T29 PO (17:30)
[2016-11-08] MEDS ORDERED: PRED-501 PO (17:30)
[2016-11-08] MEDS ORDERED: ONDA8TAB9 PO (17:30)
[2016-11-08] MEDS ORDERED: NFVALG450T PO (17:30)
[2016-11-08] MEDS ORDERED: SODI650T PO (17:30)
[2016-11-08] MEDS ORDERED: POTA-51 PO (17:30)
[2016-11-08 17:31] LABS: BASOPHILS % (AUTO) 0 % (0-10); EOSINOPHILS % (AUTO) 0 % (0-10); LYMPHOCYTES # (AUTO) 0.3 X 10^3 (1.0-4.0); LYMPHOCYTES % (AUTO) 6 % (12-44); MEAN CORPUSCULAR HEMOGLOBIN 40 PG (25-34); MEAN CORPUSCULAR HGB CONC 34 G/DL (32-36); MEAN CORPUSCULAR VOLUME 116 FL (80-99); MEAN PLATELET VOLUME 10.6 FL (7.4-10.4); MONOCYTES # (AUTO) 0.4 X 10^3 (0.0-1.0); MONOCYTES % (AUTO) 6 % (0-12); NEUTROPHILS # (AUTO) 5.2 X 10^3 (1.8-7.8); NEUTROPHILS % (AUTO) 88 % (42-75); PLATELET COUNT 65 10^3/uL (130-400); RED BLOOD COUNT 2.25 10^6/uL (4.35-5.85); RED CELL DISTRIBUTION WIDTH 17.2 % (10.0-14.5); WHITE BLOOD COUNT 5.8 10^3/uL (4.3-11.0)
[2016-11-08 17:33] LABS: ALANINE AMINOTRANSFERASE 68 U/L (0-55); ALBUMIN 3.1 G/DL (3.2-4.5); ANION GAP 11 MMOL/L (5-14); ASPARTATE AMINO TRANSFERASE 49 U/L (5-34); BILIRUBIN,TOTAL 1.1 MG/DL (0.1-1.0); BLOOD UREA NITROGEN 25 MG/DL (7-18); BUN/CREATININE RATIO 29; CARBON DIOXIDE 24 MMOL/L (21-32); CHLORIDE 104 MMOL/L (98-107); CREATININE SERUM 0.85 MG/DL (0.60-1.30); GFR ESTIMATED > 60; GLUCOSE 165 MG/DL (70-105); POTASSIUM 3.1 MMOL/L (3.6-5.0); SODIUM 139 MMOL/L (135-145); TOTAL PROTEIN 4.9 G/DL (6.4-8.2)
--- NOTE | 2016-11-08 18:01 | Diagnostic Imaging Report ---
INDICATION: Chest pain. COMPARISON: November 22, 2015 TECHNIQUE: Single frontal radiograph of the chest dated November 08, 2016. FINDINGS: Right IJ dialysis catheter is present with the distal tip overlying the right atrium. The cardiac silhouette is borderline enlarged, though stable. No significant pulmonary vascular congestion. Small left basilar pleural-parenchymal opacity. The right lung is clear of focal pulmonary opacity. No pneumothorax. No acute osseous abnormality. IMPRESSION: 1. Small left basilar pleural-parenchymal opacity, felt to relate to a combination of pleural fluid with adjacent atelectasis and/or infiltrate. 2. Stable borderline cardiomegaly without central pulmonary vascular congestion. 3. Right-sided dialysis catheter in place. Dictated by: Dictated on workstation # [id number]
[2016-11-08 18:40] LABS: BILIRUBIN,URINE NEGATIVE (NEGATIVE); KETONES,URINE NEGATIVE (NEGATIVE); LEUKOCYTE ESTERASE ,URINE 3+ (NEGATIVE); NITRITE,URINE NEGATIVE (NEGATIVE); PH,URINE 7 (5-9); PROTEIN,URINE NEGATIVE (NEGATIVE); UROBILINOGEN,URINE NORMAL (NORMAL)
[2016-11-08 19:09] LABS: WBC,URINE 50-100 /HPF
[2016-11-08] MEDS ORDERED: cefTRIAXone INJECTION 1,000 MG in NORMAL SALINE (BAXTER MINI) 50 ML IV ONE (20:00)
[2016-11-08] MEDS ORDERED: fentaNYL INJECTION 100 MCG/2 ML AMP IVP ONE (20:45)
[2016-11-08] MEDS ORDERED: LACTATED RINGERS 2,000 ML IV ONE (20:45)
[2016-11-08] MEDS ORDERED: NS 100 ML (IVPB) BAG IV ONE (21:00)
[2016-11-08] MEDS ORDERED: IOHEXOL 350 MG/ML 100 ML (OMNIPAQUE 350) VIAL IV ONE (21:00)
[2016-11-08] MEDS ORDERED: LEVOFLOXACIN 750 MG/150 ML IV 150 ML IV ONE (21:45)
[2016-11-08] MEDS ORDERED: KETOROLAC 30 MG/ML VIAL IVP ONE (22:00)
--- NOTE | 2016-11-08 23:06 | Diagnostic Imaging Report ---
PROCEDURE: CT chest, abdomen, and pelvis with contrast. TECHNIQUE: Multiple contiguous axial images were obtained through the chest, abdomen, and pelvis after the administration of intravenous contrast. INDICATION: Pain COMPARISON: CT of the abdomen and pelvis dated August 29, 2015 FINDINGS: Right-sided central venous catheter is present. No significant adenopathy within the chest. No aneurysmal dilatation of the thoracic aorta. No pericardial effusion. Small bilateral pleural effusions. Minimal patchy groundglass opacities are identified within the right upper lobe. Additional mild patchy opacities are identified within the right lower lobe and left lower lobe. However, more dense focal airspace opacities are seen within the lingula. No pneumothorax. Chronic right-sided rib fractures. Cholecystectomy. The liver is unremarkable. The spleen is unremarkable. The adrenal glands are unremarkable. The spleen is decreased in size from the prior examination. The pancreas is unremarkable. The kidneys are unremarkable. Mild vascular calcifications. No aneurysmal dilatation of the abdominal aorta. Gas is identified within the wall of the urinary bladder circumferentially. Peripheral vascular calcifications associated with the uterus. No abnormal adnexal mass lesion. No bowel obstruction or pneumatosis. Small amount of free fluid within the abdomen and pelvis. Mild diffuse anasarca. No free air. Sclerosis is present within the left femoral head, appearing similar to the prior examination. Scattered osseous degenerative changes. 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 Patchy bilateral pulmonary opacities, particularly within the lingula. Findings likely relate to pneumonia. Small amount of free fluid within the abdomen and pelvis with associated mild diffuse anasarca. Sclerosis within left femoral head. This is favored to relate to avascular necrosis. No significant collapse of the femoral head identified at this time. Additional findings as described above. Dictated by: Dictated on workstation # [id number]
[2016-11-09] VITALS: BP 127/65
[2016-11-09] MEDS ORDERED: ACETAMINOPHEN 325 MG TABLET/CAPLET (TYLENOL) PO PRN (00:15)
[2016-11-09] MEDS ORDERED: fentaNYL INJECTION 100 MCG/2 ML AMP IV PRN (00:15)
[2016-11-09] MEDS ORDERED: ONDANSETRON 4 MG/2 ML (SDV) Z0FRAN IV PRN (00:15)
[2016-11-09] MEDS ORDERED: NS W/KCL 40 MEQ/L 1,000 ML IV SCH (00:15)
[2016-11-09] MEDS ORDERED: VANCOMYCIN 1 GM/NS 250 ML IVPB IV SCH ×2 (00:30)
[2016-11-09] MEDS ORDERED: inSUlin DETERMIR 1 UNIT/0.01 ML (LEVEMIR) CHARGE PER UNIT SQ ONE (00:36)
[2016-11-09] MEDS: CEFEPIME 2 GM/NS 50 ML IVPB IV SCH ×4 (00:44→12:27)
[2016-11-09 04:01] VITALS: BP 110/69
[2016-11-09 05:12] LABS: BASOPHILS % (AUTO) 0 % (0-10); EOSINOPHILS % (AUTO) 0 % (0-10); LYMPHOCYTES # (AUTO) 0.3 X 10^3 (1.0-4.0); LYMPHOCYTES % (AUTO) 7 % (12-44); MEAN CORPUSCULAR HEMOGLOBIN 40 PG (25-34); MEAN CORPUSCULAR HGB CONC 34 G/DL (32-36); MEAN CORPUSCULAR VOLUME 118 FL (80-99); MEAN PLATELET VOLUME 10.5 FL (7.4-10.4); MONOCYTES # (AUTO) 0.2 X 10^3 (0.0-1.0); MONOCYTES % (AUTO) 5 % (0-12); NEUTROPHILS % (AUTO) 88 % (42-75); PLATELET COUNT 48 10^3/uL (130-400); RED BLOOD COUNT 1.78 10^6/uL (4.35-5.85); RED CELL DISTRIBUTION WIDTH 17.4 % (10.0-14.5); WHITE BLOOD COUNT 4.6 10^3/uL (4.3-11.0)
[2016-11-09 05:33] LABS: ALANINE AMINOTRANSFERASE 53 U/L (0-55); ALBUMIN 2.5 G/DL (3.2-4.5); ANION GAP 10 MMOL/L (5-14); ASPARTATE AMINO TRANSFERASE 34 U/L (5-34); BILIRUBIN,TOTAL 0.7 MG/DL (0.1-1.0); BLOOD UREA NITROGEN 24 MG/DL (7-18); BUN/CREATININE RATIO 29; CALCIUM 8.3 MG/DL (8.5-10.1); CARBON DIOXIDE 26 MMOL/L (21-32); CHLORIDE 106 MMOL/L (98-107); CREATININE SERUM 0.83 MG/DL (0.60-1.30); GFR ESTIMATED > 60; GLUCOSE 206 MG/DL (70-105); SODIUM 142 MMOL/L (135-145); TOTAL PROTEIN 4.1 G/DL (6.4-8.2)
[2016-11-09] MEDS ORDERED: inSUlin (REGULAR) HUMAN 1 UNIT/0.01 ML (CHARGE PER UNIT) SC SCH (06:00)
[2016-11-09] MEDS: inSUlin ASPART (NovoLOG) 1 UNIT/0.01 ML (CHARGE PER UNIT) SC SCH ×6 (07:27→20:48)
[2016-11-09 08:00] VITALS: BP 115/78
--- NOTE | 2016-11-09 10:24 | History & Physicial (CHS) ---
HPI History of Present Illness: 60 yo Indonesian speaking patient that was brought in by her daughter with L flank pain that worsened with inspiration. Pain started pretty suddenly per patient. States that it is a constant pain w/o any radiation. No trauma to that area. Denies chest pain, shortness of breath, or cough. Patient has a known h/o Leukemia which she follows with [facility]. 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 She had appt with them last week with the only change to medications was decrease in prednisone. She is scheduled to follow up with them tomorrow. Patient denies any night sweats or fever but had fever upon arrival to ED. She states that the pain is much better this AM. She tolerated breakfast without any problems. Patient preferred that daughter was used as scuba diver Source: patient, family (daughter), old records Exam Limitations: language barrier (Daughter translated) Date seen by provider: Nov 09, 2016 Attending Physician Arianna Adame MD PCP [facility] [place] Consult Date of Admission Nov 08, 2016 at 23:00 Home Medications Home Medications Reviewed patient Home Medication Reconciliation Form Allergies Coded Allergies: No Known Drug Allergies (Unverified , 10/08/14) HWQ-Nhbrho-Pyajtg Hx Patient Social History Alcohol Use: Denies Use Recreational Drug Use: No Smoking Status: Never a Smoker Recent Foreign Travel: No Contact w/other who traveled: No 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) Recent Infectious Disease Expo: No Physical Abuse Screen: No Sexual Abuse: No Immunizations Up To Date Tetanus Booster (TDap): Unknown Past Medical History Leukemia: Diagnosed 2015 s/p Chemo and [facility] Family Medical History Significant Family History: No Pertinent Family Hx Family History: Alcoholism 19 FATHER Diabetes mellitus daughter Headache disorder 19 MOTHER Thyroid disease daughter Review of Systems ([facility]) Constitutional: no symptoms reportedNo chills, malaise EENTM: no symptoms reported Respiratory: no symptoms reportedNo cough, No dyspnea on exertion, No short of breath Cardiovascular: no symptoms reportedNo chest pain, edema (LE edema)No palpitations Gastrointestinal: LUQ (improved today)No constipation, No diarrhea, No nausea , No vomiting Genitourinary: No dysuria, frequencyNo hematuria, No incontinence : No Musculoskeletal: no symptoms reported Skin: no symptoms reported Psychiatric/Neurological: No Symptoms Reported Reviewed Test Results Reviewed Test Results Lab Laboratory Tests Test 1/29/17 17:06 11/08/16 17:21 11/08/16 18:34 11/08/16 19:24 Range/Units Alanine Aminotransferase (ALT/SGPT) 68 H 0-55 U/L Albumin 3.1 L 3.2-4.5 G/DL Alkaline Phosphatase 237 H 40-136 U/L Anion Gap 11 5-14 MMOL/L Aspartate Amino Transf (AST/SGOT) 49 H 5-34 U/L BUN/Creatinine Ratio 29 Basophils # (Auto) 0.0 0.0-0.1 10^3/uL Basophils (%) (Auto) 0 0-10 % Blood Urea Nitrogen 25 H 7-18 MG/DL Calcium Level 9.0 8.5-10.1 MG/DL Carbon Dioxide Level 24 21-32 MMOL/L Chloride Level 104 98-107 MMOL/L Creatinine 0.85 0.60-1.30 MG/DL Eosinophils # (Auto) 0.0 0.0-0.3 10^3/uL Eosinophils (%) (Auto) 0 0-10 % Estimat Glomerular Filtration Rate > 60 Glucose Level 165 H 70-105 MG/DL Hematocrit 26 L 35-52 % Hemoglobin 9.0 L 11.5-16.0 G/DL Lymphocytes # (Auto) 0.3 L 1.0-4.0 X 10^3 Lymphocytes (%) (Auto) 6 L 12-44 % Mean Corpuscular Hemoglobin 40 H 25-34 PG Mean Corpuscular Hemoglobin Concent 34 32-36 G/DL Mean Corpuscular Volume 116 H 80-99 FL Mean Platelet Volume 10.6 H 7.4-10.4 FL Monocytes # (Auto) 0.4 0.0-1.0 X 10^3 Monocytes (%) (Auto) 6 0-12 % Neutrophils # (Auto) 5.2 1.8-7.8 X 10^3 Neutrophils (%) (Auto) 88 H 42-75 % Platelet Count 65 L 130-400 10^3/uL Potassium Level 3.1 L 3.6-5.0 MMOL/L Red Blood Count 2.25 L 4.35-5.85 10^6/uL Red Cell Distribution Width 17.2 H 10.0-14.5 % Sodium Level 139 135-145 MMOL/L Total Bilirubin 1.1 H 0.1-1.0 MG/DL Total Protein 4.9 L 6.4-8.2 G/DL White Blood Count 5.8 4.3-11.0 10^3/uL Lactic Acid Level 3.2 *H 2.4 *H 0.5-2.0 MMOL/L Urine Bacteria LARGE H /HPF Urine Bilirubin NEGATIVE NEGATIVE Urine Casts NONE /LPF Urine Clarity SLIGHTLY CLOUDY Urine Color YELLOW Urine Crystals NONE /LPF Urine Culture Indicated YES Urine Glucose (UA) NEGATIVE NEGATIVE Urine Ketones NEGATIVE NEGATIVE Urine Leukocyte Esterase 3+ H NEGATIVE Urine Mucus NEGATIVE /LPF Urine Nitrite NEGATIVE NEGATIVE Urine Protein NEGATIVE NEGATIVE Urine RBC 0-2 /HPF Urine RBC (Auto) 1+ H NEGATIVE Urine Specific [employer] 1.005 L 1.016-1.022 Urine Urobilinogen NORMAL NORMAL MG/DL Urine WBC 50-100 H /HPF Urine pH 7 5-9 Test 11/08/16 23:52 11/09/16 05:05 11/09/16 10:23 Range/Units Glucometer 204 H 73 70-110 MG/DL Alanine Aminotransferase (ALT/SGPT) 53 0-55 U/L Albumin 2.5 L 3.2-4.5 G/DL Alkaline Phosphatase 174 H 40-136 U/L Anion Gap 10 5-14 MMOL/L Aspartate Amino Transf (AST/SGOT) 34 5-34 U/L BUN/Creatinine Ratio 29 Basophils # (Auto) 0.0 0.0-0.1 10^3/uL Basophils (%) (Auto) 0 0-10 % Blood Urea Nitrogen 24 H 7-18 MG/DL Calcium Level 8.3 L 8.5-10.1 MG/DL Carbon Dioxide Level 26 21-32 MMOL/L Chloride Level 106 98-107 MMOL/L Creatinine 0.83 0.60-1.30 MG/DL Eosinophils # (Auto) 0.0 0.0-0.3 10^3/uL Eosinophils (%) (Auto) 0 0-10 % Estimat Glomerular Filtration Rate > 60 Glucose Level 206 H 70-105 MG/DL Hematocrit 21 L 35-52 % Hemoglobin 7.1 #L 11.5-16.0 G/DL Lymphocytes # (Auto) 0.3 L 1.0-4.0 X 10^3 Lymphocytes (%) (Auto) 7 L 12-44 % Mean Corpuscular Hemoglobin 40 H 25-34 PG Mean Corpuscular Hemoglobin Concent 34 32-36 G/DL Mean Corpuscular Volume 118 H 80-99 FL Mean Platelet Volume 10.5 H 7.4-10.4 FL Monocytes # (Auto) 0.2 0.0-1.0 X 10^3 Monocytes (%) (Auto) 5 0-12 % Neutrophils # (Auto) 4.0 1.8-7.8 X 10^3 Neutrophils (%) (Auto) 88 H 42-75 % Platelet Count 48 L 130-400 10^3/uL Potassium Level 3.0 L 3.6-5.0 MMOL/L Red Blood Count 1.78 L 4.35-5.85 10^6/uL Red Cell Distribution Width 17.4 H 10.0-14.5 % Sodium Level 142 135-145 MMOL/L Total Bilirubin 0.7 0.1-1.0 MG/DL Total Protein 4.1 L 6.4-8.2 G/DL White Blood Count 4.6 4.3-11.0 10^3/uL Radiology Date of Exam: 11/08/16 CT CHEST/ABDOMEN/PELVIS W PROCEDURE: CT chest, abdomen, and pelvis with contrast. TECHNIQUE: Multiple contiguous axial images were obtained through the chest, abdomen, and pelvis after the administration of intravenous contrast. INDICATION: Pain COMPARISON: CT of the abdomen and pelvis dated August 29, 2015 FINDINGS: Right-sided central venous catheter is present. No significant adenopathy within the chest. No aneurysmal dilatation of the thoracic aorta. No pericardial effusion. Small bilateral pleural effusions. Minimal patchy groundglass opacities are identified within the right upper lobe. Additional mild patchy opacities are identified within the right lower lobe and left lower lobe. However, more dense focal airspace opacities are seen within the lingula. No pneumothorax. Chronic right-sided rib fractures. Cholecystectomy. The liver is unremarkable. The spleen is unremarkable. The adrenal glands are unremarkable. The spleen is decreased in size from the prior examination. The pancreas is unremarkable. The kidneys are unremarkable. Mild vascular calcifications. No aneurysmal dilatation of the abdominal aorta. Gas is identified within the wall of the urinary bladder circumferentially. Peripheral vascular calcifications associated with the uterus. No abnormal adnexal mass lesion. No bowel obstruction or pneumatosis. Small amount of free fluid within the abdomen and pelvis. Mild diffuse anasarca. No free air. Sclerosis is present within the left femoral head, appearing similar to the prior examination. Scattered osseous degenerative changes. 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 Patchy bilateral pulmonary opacities, particularly within the lingula. Findings likely relate to pneumonia. Small amount of free fluid within the abdomen and pelvis with associated mild diffuse anasarca. Sclerosis within left femoral head. This is favored to relate to avascular necrosis. No significant collapse of the femoral head identified at this time. Additional findings as described above. Physical Exam-([facility]) Physical Exam Vital Signs VS - Last 72 Hours, by Label 11/08/16 11/08/16 11/09/16 11/09/16 17:06 23:15 00:00 00:20 Temp 100.0 98.8 99.1 Pulse 90 93 94 Resp 14 18 20 B/P 151/71 127/65 Pulse Ox 97 99 95 O2 Delivery Room Air Nasal Cannula Nasal Cannula Nasal Cannula O2 Flow Rate 2 4.00 4.00 11/09/16 11/09/16 11/09/16 04:01 08:00 09:00 Temp 96.7 97.6 Pulse 85 75 Resp 18 16 B/P 110/69 115/78 Pulse Ox 99 100 100 O2 Delivery Nasal Cannula Nasal Cannula Nasal Cannula O2 Flow Rate 4.00 4.00 4.00 Capillary Refill : Less Than 3 Seconds General Appearance: WD/WN no apparent distress Eyes: Bilateral Eye EOMI, Bilateral Eye PERRL HEENT: pale conjunctivae (R) pale conjunctivae (L) Neck: non-tender full range of motion supple normal inspection Respiratory: chest non-tender lungs clear normal breath sounds no respiratory distress no accessory muscle use Cardiovascular: regular rate, rhythm JVD (mild) systolic murmurNo friction rub Gastrointestinal: normal bowel sounds non tender soft no organomegaly no pulsatile massNo distended, No guarding, No rebound Extremities: normal range of motion non-tender no calf tenderness normal capillary refill pedal edema (3+ pitting to knee equal bilaterally) Neurologic/Psychiatric: sensor technician II-XII nml as tested no motor/sensory deficits alert normal mood/affect oriented x 3 Skin: normal color warm/dry ecchymosis pallor Assessment/Plan Assessment/Plan Admission Dx Left flank pain Urinary Tract infection Febrile Leukemia Anemia Plan 60 yo F with known h/o Leukemia who was admitted with fever and concerns for PNA vs UTI Urinary tract infection - Cultures pending, Continue levoquin and Cefepime D2 New oxygen requirement - CT shows concerns for PNA, however patient has not had any symptoms of cough or shortness of breath, more likely areas of atelectasis - Titrate oxygen as tolerated, with goal to be on RA - Start Inspiratory spirometry - D/c Vancomycin Pancytopenia: most likely related to cancer - No signs of bleeding - Hem/Onc doctor has been consulted, appreciated recommendations Lactic Acidosis - Trending down, will repeat since not in normal range Hypokalemia: Replace and repeat BMP in AM Dispo: Continue admission today given oxygen requirement and need for IV Antibiotics, once cultures return switch to PO antibiotics Diagnosis/Problems: Clinical Quality Measures DVT/VTE Risk/Contraindication: Risk Factor Score Per Nursin RFS Level Per Nursing on Admit: 4+=Very High Pneumonia: Pseudomonal Risk: Cancer HCAP with risk for mulit-drug: Immunosuppressive Disease Copy Copies To 1: GAMA GAMEZ MD, HOLLY R MD Nov 09, 2016 10:24
[2016-11-09] MEDS ORDERED: VALG450T3 PO (11:06)
[2016-11-09] MEDS ORDERED: CARB15DR74 OU (11:06)
[2016-11-09] MEDS ORDERED: LEVO50TA6 PO (11:06)
[2016-11-09] MEDS ORDERED: PRD10T PO (11:06)
[2016-11-09] MEDS ORDERED: OMEP40CA36 PO (11:06)
[2016-11-09] MEDS ORDERED: INSU100I10 SQ (11:06)
[2016-11-09] MEDS ORDERED: POTA20TA15 PO (11:06)
[2016-11-09] MEDS ORDERED: GABA TOP (11:10)
[2016-11-09] MEDS ORDERED: AMITRIP TOP (11:10)
[2016-11-09] MEDS ORDERED: MINE114O TP (11:10)
[2016-11-09] MEDS ORDERED: EMU OIL TOP (11:10)
[2016-11-09 12:00] VITALS: BP 135/61
[2016-11-09] MEDS ORDERED: HYDROcodone/APAP 5 MG/325 MG (LORTAB) TAB PO PRN (12:15)
[2016-11-09] MEDS ORDERED: NORMAL SALINE (BAXTER MINI) 50 ML IV ONE ×2 (12:22→23:55)
[2016-11-09] MEDS ORDERED: CEFEPIME HCL 2 GM (MAXIPIME) VIAL ONE ×2 (12:22→23:55)
[2016-11-09] MEDS ORDERED: KCL 20 MEQ TAB (K-DUR) PO NR (12:30)
[2016-11-09] MEDS ORDERED: CATHETER FLUSH 10 ML SYR IV PRN (13:45)
[2016-11-09] MEDS: CATHETER FLUSH 10 ML SYR IV SCH ×2 (14:48→20:48)
[2016-11-09] MEDS ORDERED: LEVO500T2 PO (15:41)
[2016-11-09 16:28] VITALS: BP 162/72
--- NOTE | 2016-11-09 17:27 | Oncology Consultation ---
Visit Information Visit Information Date of Admission Nov 08, 2016 at 23:00 Attending Physician Arianna Adame MD Admitting Physician Jen[facility] Chief Complaint LUQ pain. AML, s/p bone marrow transplant Interval History Ms. 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 UA showed large amount of bacteria and >100 WBC suggesting UTI. She was also noticed pancytopenia. She had bone marrow exam done last week and was supposed to go back to [facility] tomorrow 10/13/16 for the result and future treatment. Since admission last night, pt was treated with IV antibiotics and she is feeling better today. Her family wants to keep the appointment with [facility] if possible. I consulted the patient on: 11/09/16 17:19 Constitutional: fever weakness EENTM: no symptoms reported Respiratory: no symptoms reported Cardiovascular: no symptoms reported Gastrointestinal: LUQ abdominal pain (LUQ) Genitourinary: dysuria Musculoskeletal: muscle weakness Skin: no symptoms reported Psychiatric/Neurological: No Symptoms Reported Health Status Allergies Coded Allergies: No Known Drug Allergies (Unverified , 10/08/14) Home Medications ([Amitrip/Rashaad/Emu Oil]) TOP Q8H PRN PRN HANDS/FEET (Reported) AMITRIPTYLINE/GABAPENTIN/EMU OIL 4/4/10% Atovaquone (Atovaquone) 750 Mg/5 Ml Oral.susp 10 ML PO DAILY (Reported) Carboxymethylcellulose Sodium (Refresh Tears) 15 Ml Drops 1 DROP OU QID PRN PRN DRY EYES (Reported) Cholecalciferol (Vitamin D3) (Vitamin D3) 1,000 Unit Tablet 2,000 UNIT PO DAILY (Reported) TAKES 2 (1,000 UNIT) TABLETS Clonazepam (Clonazepam) 0.5 Mg Tablet 0.25 MG PO HS PRN PRN ANXIETY (Reported) TAKES 1/2 (0.5MG) TABLET Ergocalciferol (Vitamin D2) (Vitamin D2) 50,000 Unit Capsule 50,000 UNIT PO Tu ( Reported) Insulin Aspart (Novolog Flexpen) 300 Units/3 Ml Solution 12 UNITS SQ AC ( Reported) Insulin Glargine,Hum.rec.anlog (Lantus Solostar) 100 Unit/1 Ml Insuln.pen 12 UNITS SQ HS (Reported) Levofloxacin (Levaquin) 500 Mg Tablet 10Days 500 MG PO DAILY Prescribed by: NAINA SU on 11/09/16 1541 Levothyroxine Sodium (Levothyroxine Sodium) 50 Mcg Tablet 50 MCG PO DAILY ( Reported) Magnesium Oxide (Magox 400) 400 Mg Tablet 400 MG PO BID (Reported) Mineral Oil/Petrolatum,White (Absorbase Ointment) 114 Gm Oint...g. TP BID PRN PRN HANDS/FEET (Reported) Omeprazole (Omeprazole) 40 Mg Capsule.dr 40 MG PO DAILY (Reported) Ondansetron (Zofran Odt) 8 Mg Tab.rapdis 8 MG PO Q8H PRN PRN NAUSEA (Reported) Posaconazole (Noxafil) 100 Mg Tablet.dr 300 MG PO DAILY (Reported) TAKES 3 (100MG) TABLETS Potassium Chloride (Potassium Chloride) 20 Meq Tab.er.prt 40 MEQ PO BID ( Reported) TAKES 2 (20MEQ) TABLETS Prednisone (Prednisone) 10 Mg Tab 20 MG PO DAILY (Reported) TAKES 2 (10MG) TABLETS Sodium Bicarbonate (Sodium Bicarbonate) 650 Mg Tablet 1,300 MG PO BID (Reported ) TAKES 2 (650MG) TABLETS Valganciclovir HCl (Valganciclovir HCl) 450 Mg Tablet #1 900 MG PO DAILY ( Reported) TAKES 2 (450MG) TABLETS VJA-Bqploz-Nokety Hx Patient Social History Alcohol Use: Denies Use Recreational Drug Use: No Smoking Status: Never a Smoker Recent Foreign Travel: No Contact w/other who traveled: No Recent Infectious Disease Expo: No 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) Physical Abuse Screen: No Sexual Abuse: No Immunizations Up To Date Tetanus Booster (TDap): Unknown Family Medical History Significant Family History: No Pertinent Family Hx Family History: Alcoholism 19 FATHER Diabetes mellitus daughter Headache disorder 19 MOTHER Thyroid disease daughter Physical Exam Vital Signs Vital Sign - Last 12Hours 11/08/16 11/08/16 17:06 23:15 Temp 100.0 Pulse 90 Resp 14 B/P 151/71 Pulse Ox 97 O2 Delivery Room Air O2 Flow Rate 2 Capillary Refill : Less Than 3 Seconds General Appearance: No Apparent Distress HEENT: PERRL/EOMI Neck: Non Tender Supple Respiratory: Chest Non Tender Lungs Clear No Accessory Muscle Use No Respiratory Distress Cardiovascular: Regular Rate, Rhythm No JVD Gastrointestinal: Non Tender Soft Extremity: Non Tender No Calf Tenderness No Pedal Edema Neurologic/Psychiatric: Alert Oriented x3 Data Review Labs Laboratory Tests 11/09/16 05:05 Laboratory Tests 11/08/16 17:06: Alanine Aminotransferase (ALT/SGPT) 68H, Albumin 3.1L, Alkaline Phosphatase 237H , Aspartate Amino Transf (AST/SGOT) 49H, Blood Urea Nitrogen 25H, Glucose Level 165H, Hematocrit 26L, Hemoglobin 9.0L, Lymphocytes # (Auto) 0.3L, Lymphocytes (% ) (Auto) 6L, Mean Corpuscular Hemoglobin 40H, Mean Corpuscular Volume 116H, Mean Platelet Volume 10.6H, Neutrophils (%) (Auto) 88H, Platelet Count 65L, Potassium Level 3.1L, Red Blood Count 2.25L, Red Cell Distribution Width 17.2H, Total Bilirubin 1.1H, Total Protein 4.9L 11/08/16 17:21: Lactic Acid Level 3.2*H 11/08/16 18:34: Urine Bacteria LARGEH, Urine Leukocyte Esterase 3+H, Urine RBC (Auto) 1+H, Urine Specific [place] 1.005L, Urine WBC 50-100H 11/08/16 19:24: Lactic Acid Level 2.4*H 11/08/16 23:52: Glucometer 204H 11/09/16 05:05: Albumin 2.5L, Alkaline Phosphatase 174H, Blood Urea Nitrogen 24H, Calcium Level 8.3L, Glucose Level 206H, Hematocrit 21L, Hemoglobin 7.1#L, Lymphocytes # (Auto ) 0.3L, Lymphocytes (%) (Auto) 7L, Mean Corpuscular Hemoglobin 40H, Mean Corpuscular Volume 118H, Mean Platelet Volume 10.5H, Neutrophils (%) (Auto) 88H , Platelet Count 48L, Potassium Level 3.0L, Red Blood Count 1.78L, Red Cell Distribution Width 17.4H, Total Protein 4.1L 11/09/16 10:23: 11/09/16 13:05: 11/09/16 14:33: Impression & Plan Impression & Plan A/P: 1. UTI, on Levaquin IV. Need to f/u culture and sensitivities. Since she has not had any more fever since last night. We can change her IV to PO tomorrow, so that she can go to [facility] for follow up. We can fax [facility] the urine culture and sensitivities. 2. MDS/AML s/p allogeneic bone marrow transplant since February 2016. Recent bone marrow exam to evaluate pancytopenia at [facility]. Pt needs to go back to [facility] for the f/u appointment 11/10/16. 3. Pancytopenia but no indication for transfusion at this point. 4. I have arranged for patient to be discharged to home tomorrow at 8am and they can drive to [facility] for their 12:00 appointment at [facility]. 5. I also give patient my card and told them I will be happy to follow up on her at cancer center if necessary. 6. I also discussed with Dr. Espinoza today and she agrees to discharge patient tomorrow. SHAWN CORREA MD Nov 09, 2016 17:27
[2016-11-09 20:54] VITALS: BP 132/64
[2016-11-09] MEDS ORDERED: inSUlin DETERMIR 1 UNIT/0.01 ML (LEVEMIR) CHARGE PER UNIT SQ SCH (21:00)
[2016-11-09] MEDS ORDERED: LEVOFLOXACIN 750 MG/150 ML D5W (PRE-MIX) IV SCH (21:00)
[2016-11-10] MEDS: CEFEPIME 2 GM/NS 50 ML IVPB IV SCH ×2 (00:03)
[2016-11-10 00:30] VITALS: BP 116/58
[2016-11-10 04:15] VITALS: BP 118/58
[2016-11-10 05:37] LABS: BASOPHILS % (AUTO) 0 % (0-10); EOSINOPHILS % (AUTO) 0 % (0-10); LYMPHOCYTES # (AUTO) 0.4 X 10^3 (1.0-4.0); LYMPHOCYTES % (AUTO) 10 % (12-44); MEAN CORPUSCULAR HEMOGLOBIN 40 PG (25-34); MEAN CORPUSCULAR HGB CONC 34 G/DL (32-36); MEAN CORPUSCULAR VOLUME 119 FL (80-99); MEAN PLATELET VOLUME 9.5 FL (7.4-10.4); MONOCYTES # (AUTO) 0.2 X 10^3 (0.0-1.0); MONOCYTES % (AUTO) 6 % (0-12); NEUTROPHILS % (AUTO) 84 % (42-75); RED BLOOD COUNT 1.72 10^6/uL (4.35-5.85); RED CELL DISTRIBUTION WIDTH 16.9 % (10.0-14.5); WHITE BLOOD COUNT 3.6 10^3/uL (4.3-11.0)
[2016-11-10 05:39] LABS: PLATELET COUNT 36 10^3/uL (130-400)
[2016-11-10 05:52] LABS: ANION GAP 10 MMOL/L (5-14); BLOOD UREA NITROGEN 24 MG/DL (7-18); BUN/CREATININE RATIO 31; CALCIUM 8.2 MG/DL (8.5-10.1); CARBON DIOXIDE 26 MMOL/L (21-32); CHLORIDE 107 MMOL/L (98-107); CREATININE SERUM 0.77 MG/DL (0.60-1.30); GFR ESTIMATED > 60; GLUCOSE 169 MG/DL (70-105); POTASSIUM 2.6 MMOL/L (3.6-5.0); SODIUM 143 MMOL/L (135-145)
[2016-11-10] MEDS ORDERED: KCL 20 MEQ TAB (K-DUR) PO ONE (06:15)
[2016-11-10] MEDS: CATHETER FLUSH 10 ML SYR IV SCH (06:31)
[2016-11-10] MEDS: inSUlin ASPART (NovoLOG) 1 UNIT/0.01 ML (CHARGE PER UNIT) SC SCH ×2 (07:00→07:34)
[2016-11-10] MEDS ORDERED: KCL 20 MEQ TAB (K-DUR) PO NR (07:45)
--- NOTE | 2016-11-10 08:07 | Discharge Summary ---
Diagnosis/Chief Complaint Date of Admission Nov 08, 2016 at 23:00 Date of Discharge 11/10/2016 Admission Diagnosis Admission Diagnosis Left flank pain Urinary Tract infection Febrile Leukemia Anemia Discharge Diagnosis See Above Chief Complaint/HPI Chief Complaint/HPI 60 yo Citizen Of [place] speaking patient that was brought in by her daughter with L flank pain that worsened with inspiration. Pain started pretty suddenly per patient. States that it is a constant pain w/o any radiation. No trauma to that area. Denies chest pain, shortness of breath, or cough. Patient has a known h/o Leukemia which she follows with [facility]. 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 She had appt with them last week with the only change to medications was decrease in prednisone. She is scheduled to follow up with them tomorrow. Patient denies any night sweats or fever but had fever upon arrival to ED. She states that the pain is much better this AM. She tolerated breakfast without any problems. Patient preferred that daughter was used as cooper helper Discharge Summary-Simple/Stand Procedures Date of Exam: 11/08/16 CT CHEST/ABDOMEN/PELVIS W PROCEDURE: CT chest, abdomen, and pelvis with contrast. TECHNIQUE: Multiple contiguous axial images were obtained through the chest, abdomen, and pelvis after the administration of intravenous contrast. INDICATION: Pain COMPARISON: CT of the abdomen and pelvis dated August 29, 2015 FINDINGS: Right-sided central venous catheter is present. No significant adenopathy within the chest. No aneurysmal dilatation of the thoracic aorta. No pericardial effusion. Small bilateral pleural effusions. Minimal patchy groundglass opacities are identified within the right upper lobe. Additional mild patchy opacities are identified within the right lower lobe and left lower lobe. However, more dense focal airspace opacities are seen within the lingula. No pneumothorax. Chronic right-sided rib fractures. Cholecystectomy. The liver is unremarkable. The spleen is unremarkable. The adrenal glands are unremarkable. The spleen is decreased in size from the prior examination. The pancreas is unremarkable. The kidneys are unremarkable. Mild vascular calcifications. No aneurysmal dilatation of the abdominal aorta. Gas is identified within the wall of the urinary bladder circumferentially. Peripheral vascular calcifications associated with the uterus. No abnormal adnexal mass lesion. No bowel obstruction or pneumatosis. Small amount of free fluid within the abdomen and pelvis. Mild diffuse anasarca. No free air. Sclerosis is present within the left femoral head, appearing similar to the prior examination. Scattered osseous degenerative changes. 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 Patchy bilateral pulmonary opacities, particularly within the lingula. Findings likely relate to pneumonia. Small amount of free fluid within the abdomen and pelvis with associated mild diffuse anasarca. Sclerosis within left femoral head. This is favored to relate to avascular necrosis. No significant collapse of the femoral head identified at this time. Additional findings as described above. Consultations Hem/Onc: Dr Jones, Bart[place] Discharge Physical Examination Allergies: Coded Allergies: No Known Drug Allergies (Unverified , 10/08/14) Vitals & I&Os Vital Sign - Last 12Hours Date Time Temp Pulse Resp B/P Pulse Ox O2 Delivery O2 Flow Rate FiO2 11/10/16 04:15 98.8 76 20 118/58 95 Room Air 11/09/16 16:28 4.00 Intake and Output 11/10/16 00:00 Intake Total 2980 ml Output Total 1900 ml Balance 1080 ml General Appearance: Alert, Oriented X3, Cooperative, No Acute Distress HEENT: Atraumatic, PERRLA, EOMI, Other (Pale MM) Respiratory: Clear to Auscultation, Normal Air Movement Cardiovascular: Regular Rate, Normal S1, Normal S2, Other (Systolic Murmur) Abdominal: Normal Bowel Sounds, Soft, No Tenderness, No Hepatosplenomegaly, No Masses Extremities: No Clubbing, No Cyanosis, Normal Pulses, No Tenderness/Swelling, Other (2+ pitting edema equal bilaterally) Skin: No Rashes, No Breakdown, No Significant Lesion, Other (Petichae scattered ) Neuro: Normal Gait, Normal Speech, Strength at 5/5 X4 Ext, Normal Tone, Sensation Intact, Cranial Nerves 3-12 NL Psych/Mental Status: Mental Status NL, Mood NL Hospital Course See final discharge diagnosis. Radiology Reviewed Date of Exam: 11/08/16 CT CHEST/ABDOMEN/PELVIS W PROCEDURE: CT chest, abdomen, and pelvis with contrast. TECHNIQUE: Multiple contiguous axial images were obtained through the chest, abdomen, and pelvis after the administration of intravenous contrast. INDICATION: Pain COMPARISON: CT of the abdomen and pelvis dated August 29, 2015 FINDINGS: Right-sided central venous catheter is present. No significant adenopathy within the chest. No aneurysmal dilatation of the thoracic aorta. No pericardial effusion. Small bilateral pleural effusions. Minimal patchy groundglass opacities are identified within the right upper lobe. Additional mild patchy opacities are identified within the right lower lobe and left lower lobe. However, more dense focal airspace opacities are seen within the lingula. No pneumothorax. Chronic right-sided rib fractures. Cholecystectomy. The liver is unremarkable. The spleen is unremarkable. The adrenal glands are unremarkable. The spleen is decreased in size from the prior examination. The pancreas is unremarkable. The kidneys are unremarkable. Mild vascular calcifications. No aneurysmal dilatation of the abdominal aorta. Gas is identified within the wall of the urinary bladder circumferentially. Peripheral vascular calcifications associated with the uterus. No abnormal adnexal mass lesion. No bowel obstruction or pneumatosis. Small amount of free fluid within the abdomen and pelvis. Mild diffuse anasarca. No free air. Sclerosis is present within the left femoral head, appearing similar to the prior examination. Scattered osseous degenerative changes. 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 Patchy bilateral pulmonary opacities, particularly within the lingula. Findings likely relate to pneumonia. Small amount of free fluid within the abdomen and pelvis with associated mild diffuse anasarca. Sclerosis within left femoral head. This is favored to relate to avascular necrosis. No significant collapse of the femoral head identified at this time. Additional findings as described above. Discussion & Recommendations 60 yo F with known Leukemia s/p bone marrow transplant that follows with that presented with UTI symptoms. She was seen by Hem/Onc who stated that patient was ok to discharge home today in order to make follow up appt at this afternoon. Patient was continued on PO antibiotics which she tolerated. She was encouraged to keep close follow up at [facility] to help manage her chronic medical conditions. Discharge Condition at discharge stable Instructions to patient/family Please see electonic discharge instructions given to patient. Discharge Medications Reviewed and agree with Discharge Medication list on patient's Discharge Instruction sheet Clinical Quality Measures DVT/VTE Risk/Contraindication: Risk Factor Score Per Nursin RFS Level Per Nursing on Admit: 4+=Very High Pneumonia: Pseudomonal Risk: Cancer HCAP with risk for mulit-drug: Immunosuppressive Disease GAMA GAMEZ MD Nov 10, 2016 08:07
--- NOTE | 2016-11-10 08:07 | Discharge Instructions ---
Discharge [facility] Discharge Medications New, Converted or Re-Newed RX: Call to Patients Pharmacy New Medications: Levofloxacin (Levaquin) 500 Mg Tablet 500 MG PO DAILY Days 10 TAB Continued Medications: Atovaquone (Atovaquone) 750 Mg/5 Ml Oral.susp 10 ML PO DAILY EA Carboxymethylcellulose Sodium (Refresh Tears) 15 Ml Drops 1 DROP OU QID PRN DRY EYES DROPS Cholecalciferol (Vitamin D3) (Vitamin D3) 1,000 Unit Tablet 2000 UNIT PO DAILY TAKES 2 (1,000 UNIT) TABLETS TAB Clonazepam (Clonazepam) 0.5 Mg Tablet 0.25 MG PO HS TAKES 1/2 (0.5MG) TABLET PRN ANXIETY TAB Ergocalciferol (Vitamin D2) (Vitamin D2) 50,000 Unit Capsule 52473 UNIT PO Tu CAP Insulin Aspart (Novolog Flexpen) 300 Units/3 Ml Solution 12 UNITS SQ AC EA Insulin Glargine,Hum.rec.anlog (Lantus Solostar) 100 Unit/1 Ml Insuln.pen 12 UNITS SQ HS EA Levothyroxine Sodium (Levothyroxine Sodium) 50 Mcg Tablet 50 MCG PO DAILY TAB Magnesium Oxide (Magox 400) 400 Mg Tablet 400 MG PO BID TAB Mineral Oil/Petrolatum,White (Absorbase Ointment) 114 Gm Oint...g. TP BID PRN HANDS/FEET TUBE Omeprazole (Omeprazole) 40 Mg Capsule.dr 40 MG PO DAILY CAP Ondansetron (Zofran Odt) 8 Mg Tab.rapdis 8 MG PO Q8H PRN NAUSEA TAB Posaconazole (Noxafil) 100 Mg Tablet.dr 300 MG PO DAILY TAKES 3 (100MG) TABLETS TAB Potassium Chloride (Potassium Chloride) 20 Meq Tab.er.prt 40 MEQ PO BID TAKES 2 (20MEQ) TABLETS TAB Prednisone (Prednisone) 10 Mg Tab 20 MG PO DAILY TAKES 2 (10MG) TABLETS TAB Sodium Bicarbonate (Sodium Bicarbonate) 650 Mg Tablet 1300 MG PO BID TAKES 2 (650MG) TABLETS TAB Valganciclovir HCl (Valganciclovir HCl) 450 Mg Tablet 900 MG PO DAILY TAKES 2 (450MG) TABLETS #1 TAB ([Amitrip/Rashaad/Emu Oil]) TOP Q8H AMITRIPTYLINE/GABAPENTIN/EMU OIL 4/4/10% PRN HANDS/FEET Patient Instructions Goal/Follow Up Appt: Follow up at [facility] on Nov 17 @ [address] Zelaya Patient Instructions: - Make sure to keep your appt with [facility] center Return to The Hospital For: Fever or chills Uncontrolled bleeding Unable to tolerate antibiotics Activity & Diet Discharge Diet: No Restrictions Activity as Tolerated: Yes Copy Copies To 1: THIAGO ZELAYA MD, HOLLY R MD Nov 10, 2016 08:07
== END 2016-11-10 08:45 | disposition home or self-care (01) | DRG 690 ==
LOC: EDUNIT# 16:43 → ER 16:45 → 4TH 23:00
PROVIDERS: ADMIT Family Medicine; ATTEND Family Medicine
DX: N39.0 Urinary tract infection, site not specified (principal); J98.11 Atelectasis; D61.818 Other pancytopenia; E87.2 Acidosis; E87.6 Hypokalemia; C93.90 Monocytic leukemia, unspecified, not having achieved remission; Z87.442 Personal history of urinary calculi; Z94.81 Bone marrow transplant status
CPT/HCPCS: 36415; 71010; 71260; 74177; 80048; 80053; 81000; 82962; 83605; 85025; 87040; 87077; 87088; 87186; 87804; 96361; 96365; 96367; 96375

== ENCOUNTER → 2017-03-09 | Outpatient (CLI) | payer MEDICAID ==
[~2017-03-09] MED LIST changes: +ACYC800T PO; +AMITRIP TOP; +ATOV750O4 PO; +CARB15DR74 OU; +CARB1DRO4 OP; +CHOL10003 PO; +CLON0.5T3 PO; +D50KC PO; +EMU OIL TOP; +GABA TOP; +INSU100I10 SQ; +INSU100I14 SQ; +LEVO500T2 PO; +LEVO50TA6 PO; +MAGN400T29 PO; +MINE114O TP; +NFVALG450T PO; +OMEP40CA36 PO; +ONDA8TAB9 PO; +POSA100T PO; +POTA-51 PO; +POTA20TA15 PO; +PRD10T PO; +PRED-501 PO; +SODI650T PO; +VALG450T3 PO
[2017-03-09 12:45] LABS: BASOPHILS % (AUTO) 1 % (0-10); EOSINOPHILS # (AUTO) 0.1 10^3/uL (0.0-0.3); EOSINOPHILS % (AUTO) 3 % (0-10); LYMPHOCYTES # (AUTO) 1.8 X 10^3 (1.0-4.0); LYMPHOCYTES % (AUTO) 53 % (12-44); MEAN CORPUSCULAR HEMOGLOBIN 37 PG (25-34); MEAN CORPUSCULAR HGB CONC 34 G/DL (32-36); MEAN CORPUSCULAR VOLUME 112 FL (80-99); MEAN PLATELET VOLUME 9.1 FL (7.4-10.4); MONOCYTES # (AUTO) 0.4 X 10^3 (0.0-1.0); MONOCYTES % (AUTO) 11 % (0-12); NEUTROPHILS # (AUTO) 1.1 X 10^3 (1.8-7.8); NEUTROPHILS % (AUTO) 33 % (42-75); PLATELET COUNT 90 10^3/uL (130-400); RED BLOOD COUNT 2.38 10^6/uL (4.35-5.85); RED CELL DISTRIBUTION WIDTH 14.3 % (10.0-14.5); WHITE BLOOD COUNT 3.5 10^3/uL (4.3-11.0)
[2017-03-09 13:03] LABS: ALANINE AMINOTRANSFERASE 20 U/L (0-55); ALBUMIN 2.9 G/DL (3.2-4.5); ANION GAP 6 MMOL/L (5-14); ASPARTATE AMINO TRANSFERASE 39 U/L (5-34); BILIRUBIN,TOTAL 0.7 MG/DL (0.1-1.0); BLOOD UREA NITROGEN 14 MG/DL (7-18); BUN/CREATININE RATIO 17; CALCIUM 9.7 MG/DL (8.5-10.1); CARBON DIOXIDE 24 MMOL/L (21-32); CHLORIDE 108 MMOL/L (98-107); CREATININE SERUM 0.82 MG/DL (0.60-1.30); GFR ESTIMATED > 60; GLUCOSE 130 MG/DL (70-105); POTASSIUM 4.4 MMOL/L (3.6-5.0); SODIUM 138 MMOL/L (135-145)
== END ==
LOC: LAB 12:24
PROVIDERS: ATTEND Internal Medicine Hematology & Oncology
DX: Z94.84 Stem cells transplant status (principal)
CPT/HCPCS: 36415; 80053; 85025

== ENCOUNTER 2017-04-16 14:27 | Emergency (ER) | payer MEDICAID ==
[~2017-04-16] VITALS: Ht 165.1 cm; Wt 63.5 kg
[~2017-04-16 14:27] MED LIST changes: -D50KC PO; +ERGO50006 PO
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
[2017-04-16 14:59] LABS: BASOPHILS % (AUTO) 0 % (0-10); EOSINOPHILS # (AUTO) 0.1 10^3/uL (0.0-0.3); EOSINOPHILS % (AUTO) 2 % (0-10); LYMPHOCYTES # (AUTO) 1.6 X 10^3 (1.0-4.0); LYMPHOCYTES % (AUTO) 49 % (12-44); MEAN CORPUSCULAR HEMOGLOBIN 37 PG (25-34); MEAN CORPUSCULAR HGB CONC 34 G/DL (32-36); MEAN CORPUSCULAR VOLUME 108 FL (80-99); MEAN PLATELET VOLUME 9.2 FL (7.4-10.4); MONOCYTES # (AUTO) 0.4 X 10^3 (0.0-1.0); MONOCYTES % (AUTO) 11 % (0-12); NEUTROPHILS # (AUTO) 1.2 X 10^3 (1.8-7.8); NEUTROPHILS % (AUTO) 37 % (42-75); PLATELET COUNT 77 10^3/uL (130-400); RED BLOOD COUNT 2.75 10^6/uL (4.35-5.85); RED CELL DISTRIBUTION WIDTH 12.2 % (10.0-14.5); WHITE BLOOD COUNT 3.3 10^3/uL (4.3-11.0)
[2017-04-16 15:06] LABS: BAND NEUTROPHILS 0 %; BASOPHILS % (MANUAL) 0 %; EOSINOPHILS % (MANUAL) 2 %; LYMPHOCYTES % (MANUAL) 45 %; NEUTROPHILS % (MANUAL) 44 %
[2017-04-16] MEDS ORDERED: niCARdipine 25 MG/10 ML (CARDENE) AMP IV ONE (15:11)
[2017-04-16 15:12] LABS: ALANINE AMINOTRANSFERASE 33 U/L (0-55); ALBUMIN 3.1 GM/DL (3.2-4.5); ANION GAP 7 MMOL/L (5-14); ASPARTATE AMINO TRANSFERASE 40 U/L (5-34); BILIRUBIN,TOTAL 0.8 MG/DL (0.1-1.0); BLOOD UREA NITROGEN 26 MG/DL (7-18); BUN/CREATININE RATIO 28; CARBON DIOXIDE 23 MMOL/L (21-32); CHLORIDE 109 MMOL/L (98-107); CREATININE SERUM 0.94 MG/DL (0.60-1.30); GFR ESTIMATED > 60; GLUCOSE 225 MG/DL (70-105); POTASSIUM 3.9 MMOL/L (3.6-5.0); SODIUM 139 MMOL/L (135-145); TOTAL PROTEIN 5.6 GM/DL (6.4-8.2)
[2017-04-16 15:14] LABS: PH,URINE 6 (5-9); PROTEIN,URINE 3+ (NEGATIVE)
[2017-04-16 15:15] LABS: BILIRUBIN,URINE NEGATIVE (NEGATIVE); KETONES,URINE NEGATIVE (NEGATIVE); LEUKOCYTE ESTERASE ,URINE 1+ (NEGATIVE); NITRITE,URINE NEGATIVE (NEGATIVE); SQUAMOUS EPITHELIAL CELL,UR 0-2 /HPF; UROBILINOGEN,URINE NORMAL (NORMAL); WBC,URINE 0-2 /HPF
[2017-04-16 15:19] VITALS: BP 181/97
--- NOTE | 2017-04-16 15:23 | Diagnostic Imaging Report ---
INDICATION: Fall. Left hip pain. FINDINGS: There is intertrochanteric fracture present. Femoral neck is intact. Femoral head is in good articulation with the acetabulum. IMPRESSION: Intertrochanteric fracture of the left hip. Dictated by: Dictated on workstation # [id number]
--- NOTE | 2017-04-16 15:24 | Diagnostic Imaging Report ---
INDICATION: Left hip fracture. EXAMINATION: Portable chest at 2:43 p.m. FINDINGS: Heart size and pulmonary vascularity are normal. Lungs are clear. There are no effusions or pneumothoraces. IMPRESSION: Negative chest. Dictated by: Dictated on workstation # [id number]
[2017-04-16] MEDS: PROPOFOL DRIP (ICU) 100 ML IV ONE (15:25)
--- NOTE | 2017-04-16 15:27 | Diagnostic Imaging Report ---
INDICATION: Left hip fracture. EXAM: AP view of the pelvis shows a comminuted intertrochanteric fracture of the left hip with slight reduction of the femoral angle. The pelvic ring is intact. The right hip is unremarkable. IMPRESSION: Intertrochanteric fracture of the left hip. CRITICAL FINDING Report given to Dr. Taylor at 3:26 p.m. 04/16/2017/nato Dictated by: Dictated on workstation # [id number]
[2017-04-16] MEDS: niCARdipine IV 50 MG in NS (IVPB) 230 ML IV SCH (15:32)
--- NOTE | 2017-04-16 15:47 | Diagnostic Imaging Report ---
PROCEDURE: CT head, face, and cervical spine without contrast. TECHNIQUE: Multiple contiguous axial images were obtained through the head, neck, and facial bones without the use of intravenous contrast. Sagittal and coronal reformations through the cervical spine and facial bones were also performed. INDICATION: Status post fall, hitting left side of face. CORRELATION STUDY: None. FINDINGS: CT HEAD: There is rather extensive left-sided maxillofacial soft tissue edema extending over the left globe. It is noted that both eyes are deviated towards the left but do appear to be symmetric. There is a rather significant amount of diffuse, acute subarachnoid blood overlying bilateral hemispheres. There is a geographic area of decreased attenuation of the right cerebellum, measuring approximately 3.8 cm. Most compatible with edema, likely an acute area of ischemia. Underlying mass could also give this appearance. There is also a questionable area of decreased attenuation about the left aspect of the natalia. Ventricles and sulci, basilar cistern currently unremarkable. CT MAXILLOFACIAL: Extensive left-sided maxillofacial and periorbital soft tissue swelling is present. Overlying dressing material is present, compatible with laceration. The osseous structures, however, appear to be intact without evidence for acute displaced fracture. Zygomatic arch and pterygoid plates are intact. The orbital ma, including the floors, are intact. Nasal bones and septum appear unremarkable. Mandible is intact. Degenerative changes about the temporomandibular joints. There is some mucosal thickening about the maxillary sinuses, ethmoid air cells and left frontal sinus. There is opacification of the right mastoid air cells without definitive evidence for a fracture line. CT CERVICAL SPINE: There is motion artifact, particularly at the skull base and the C1-C2 level limiting assessment. The overall alignment, however, appears to be likely anatomic. Vertebral body heights are maintained. Mild disc space narrowing, particularly at the C2-C3 and C4-C5 levels. Posterior elements are intact and in normal alignment. There is noted vascular calcification at the carotid bifurcations. IMPRESSION: CT HEAD: 1. Extensive subarachnoid blood over bilateral cerebral hemispheres. Given trauma, is likely post traumatic in origin. However, aneurysm should be excluded. 2. Abnormal edema about the right cerebellum could be reflective of an acute area of infarct with the possibility of mass lesion not excluded. 3. Additionally, questionable area of low density about the left aspect of the natalia. 4. Initially, correlation with pre and post contrast MRI of the head along with MRA of the neck and head would be recommended. If the angiographic portion is inconclusive, CTA may be indicated at that time. CT MAXILLOFACIAL: 1. There is extensive left-sided maxillofacial edema; however, no definitive displaced maxillofacial fracture deformity is suggested. CT CERVICAL SPINE: 1. Compromised by patient motion artifact, particularly at the skull base. Given limitations, no definitive fracture or traumatic subluxation. CRITICAL FINDINGS Findings were discussed with the emergency department at 3:09 p.m. Dictated by: Dictated on workstation # [id number]
--- NOTE | 2017-04-16 15:48 | Diagnostic Imaging Report ---
INDICATION: Respiratory failure. EXAMINATION: Portable chest at 3:36 p.m. FINDINGS: There is an ET tube projecting over the trachea. NG tube projects over the stomach. Heart size and pulmonary vascularity are normal. Lungs are clear. There are no effusions or pneumothoraces. IMPRESSION: No acute abnormalities in the chest. Dictated by: Dictated on workstation # [id number]
[2017-04-16 16:15] VITALS: BP 110/75
[2017-04-16] MEDS: NS IV 1000 ML 1,000 ML ONE (16:15)
[2017-04-16] MEDS: NS (IVPB) 250 ML ONE (16:15)
[2017-04-16] MEDS ORDERED: SUCCINYLCHOLINE INJ 100 MG/5 ML SYR ONE (19:00)
[2017-04-16] MEDS ORDERED: ETOMIDATE IV SOLN 20 MG/10 ML VIAL ONE (19:00)
== END 2017-04-16 16:15 | disposition short-term general hospital (02) ==
LOC: EDUNIT# 14:29 → ER 14:33
DX: S72.142A Displaced intertrochanteric fracture of left femur, initial encounter for closed fracture (principal); S05.32XA Ocular laceration without prolapse or loss of intraocular tissue, left eye, initial encounter; I63.9 Cerebral infarction, unspecified; I10 Essential (primary) hypertension; F41.9 Anxiety disorder, unspecified; E11.9 Type 2 diabetes mellitus without complications; K21.9 Gastro-esophageal reflux disease without esophagitis; K59.09 Other constipation; E78.00 Pure hypercholesterolemia, unspecified; C95.90 Leukemia, unspecified not having achieved remission; Z99.11 Dependence on respirator [ventilator] status; Z79.84 Long term (current) use of oral hypoglycemic drugs; Z94.81 Bone marrow transplant status; W18.39XA Other fall on same level, initial encounter
CPT/HCPCS: 12013; 31500; 36415; 51702; 70450; 70486; 71010; 72125; 72170; 73502; 80053; 81000; 85007; 85027; 93041; 99291

== ENCOUNTER 2017-06-11 11:06 | Outpatient (RCR) | payer MEDICARE, MEDICAID ==
[2017-06-04 10:40] LABS: ALBUMIN 3.6 GM/DL (3.2-4.5); BILIRUBIN,TOTAL 0.6 MG/DL (0.1-1.0); CALCIUM 10.6 MG/DL (8.5-10.1); CREATININE SERUM 1.17 MG/DL (0.60-1.30); POTASSIUM 4.3 MMOL/L (3.6-5.0)
[2017-06-11 11:43] LABS: ALANINE AMINOTRANSFERASE 53 U/L (0-55); ALBUMIN 3.3 GM/DL (3.2-4.5); ANION GAP 6 MMOL/L (5-14); ASPARTATE AMINO TRANSFERASE 53 U/L (5-34); BILIRUBIN,TOTAL 0.7 MG/DL (0.1-1.0); BLOOD UREA NITROGEN 25 MG/DL (7-18); BUN/CREATININE RATIO 27; CALCIUM 9.8 MG/DL (8.5-10.1); CARBON DIOXIDE 23 MMOL/L (21-32); CHLORIDE 108 MMOL/L (98-107); CREATININE SERUM 0.93 MG/DL (0.60-1.30); GFR ESTIMATED > 60; GLUCOSE 186 MG/DL (70-105); POTASSIUM 3.9 MMOL/L (3.6-5.0); SODIUM 137 MMOL/L (135-145); TOTAL PROTEIN 5.6 GM/DL (6.4-8.2)
== END 2017-07-10 | disposition home or self-care (01) ==
LOC: LAB 11:06
PROVIDERS: ATTEND Internal Medicine Hematology & Oncology
DX: C92.00 Acute myeloblastic leukemia, not having achieved remission (principal)
CPT/HCPCS: 36415; 80053

== ENCOUNTER 2017-07-30 03:40 | Emergency (ER) | payer MEDICARE, MEDICAID ==
[~2017-07-30] VITALS: Ht 165.1 cm; Wt 58.5 kg
--- OUTSIDE RECORDS SUMMARY | 2017-07-30 03:53 | XMS REPORT | Clinical Summary ---
Author Author [facility] Organization [facility] Address Unknown Phone Unavailable Care Team Providers Care Balance Engineer Name Role Phone PCP Unavailable Source Comments Some departments are not documenting in the electronic medical record. If you do not see the information that you expected, contact Release of Information in the Health Information Management department at [phone] for further assistance in locating additional records.[facility] Allergies No Known Allergies Current Medications Prescription Sig. Disp. Refills Start End Date Status Date lancets (ACCU-CHEK To check blood sugars 100 Each 3 10/13/19 Active FASTCLIX) MISC before meals and at bed 17 time. Blood-Glucose Meter misc One Touch Verio meter 1 Each 0 10/20/19 Active 17 acyclovir (ZOVIRAX) 800 Take 1 Tab by mouth twice 60 Tab 5 04/05/20 Active mg tabletIndications: daily. 17 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remission (HCC) acetaminophen (TYLENOL) Take 2 Tabs by mouth 0 04/27/20 Active 325 mg tablet every 4 hours as needed. 17 citalopram (CELEXA) 20 mg Take 1 tablet by mouth 30 tablet 3 05/26/20 Active tablet daily. 17 budesonide (ENTOCORT EC) Take 1 capsule by mouth 60 capsule 3 Active 3 mg capsule twice daily. 17 Insulin [place] Use as needed for insulin 400 each 6 06/02/20 Active (Disposable) 31 gauge x administration before 17 1/4" ndle meals and at bedtime. penicillin V potassium Take 3 tabs by mouth 180 tablet 3 06/03/20 Active (VEETID) 250 mg tablet twice daily. 17 insulin aspart (NOVOLOG Inject 3 Units under the 3 Package 3 06/09/20 Active FLEXPEN) 100 unit/mL skin three times daily 17 injection PEN with meals. benzonatate (TESSALON Take 1 capsule by mouth 20 capsule 0 06/09/20 Active PERLES) 100 mg capsule every 8 hours as needed 17 for Cough. insulin detemir(+) Inject 10 Units under the 100 Units 5 06/10/20 Active (LEVEMIR FLEXTOUCH) 100 skin at bedtime daily. 17 unit/mL (3 mL) injection Indications: type 2 penIndications: type 2 diabetes mellitus, E 11.9 diabetes mellitus, E 11.9 magnesium oxide (MAG-OX) Take 400 mg by mouth. Active 400 mg tablet pyrimethamine (DARAPRIM) Take 1 tablet by mouth 30 tablet 11 06/28/20 Active 25 mg tablet daily. 17 sulfADIAZINE 500 mg Take 2 tablets by mouth 120 tablet 11 06/28/20 Active tablet twice daily. [address](+) Take 1 capsule by mouth 90 capsule 3 06/30/20 Active (PRILOSEC) 20 mg capsule twice daily. 17 shjyjznt-qkgaknmov-lzprqr Apply 1 cm to left eye as 3.5 g 2 07/07/20 Active thasone (MAXITROL) 3.5 directed twice daily. 17 mg/g-10,000 unit/g-0.1 % ophthalmic ointmentIndications: Panuveitis of left eye blood sugar diagnostic Use 1 strip as directed 400 strip 6 07/09/20 Active (ONETOUCH VERIO) test before meals and at 17 strip bedtime. ICD 10 E11.9 amLODIPine (NORVASC) 10 Take 1 tablet by mouth 90 tablet 3 07/09/20 Active mg tabletIndications: daily. Indications: 17 HYPERTENSION HYPERTENSION levoFLOXacin (LEVAQUIN) Take 1 tablet by mouth 30 tablet 0 07/21/20 Active 750 mg tablet every 48 hours. 17 fluconazole (DIFLUCAN) Take 1 tablet by mouth 60 tablet 0 07/21/20 Active 200 mg tablet daily. 17 levothyroxine (SYNTHROID) Take 1 tablet by mouth 90 tablet 2 07/21/20 Active 75 mcg tablet daily 30 minutes before 17 breakfast. cholecalciferol(+) Take 1 tablet by mouth 90 tablet 07/21/20 Active (VITAMIN D3) 2,000 unit daily. 17 tablet hydrOXYzine (ATARAX) 25 Take 1 tablet by mouth 90 tablet 3 07/28/20 Active mg tabletIndications: every 8 hours as needed 17 PRURITUS OF SKIN for Itching. Indications: PRURITUS OF SKIN other medication Diphenhydramine 100mL 420 mL 3 07/28/20 Active (12.5mg/5mL 17 solution)Dexamethasone 20mL (0.5mg/5mL solution)Nystatin 60mL (100,000units/mL suspension)Doxycycline 700 mg Sig: Swish and spit 5mL before and after each meal six times a dayQty: 420mL mineral oil/white apply to hands and 09/18/20 07/28/20 Discontin petrolatum (ABSORBASE) affected areas as needed 16 17 ued oint blood sugar diagnostic 1 Strip before meals and 100 Strip 6 10/20/19 07/09/20 Discontin (ONETOUCH VERIO) test at bedtime. 17 17 ued strip levothyroxine (SYNTHROID) Take 1 Tab by mouth daily 90 Tab 3 03/05/20 07/09/20 Discontin 50 mcg tablet 30 minutes before 17 17 ued breakfast. rztuuudb-qwfjhbmwd-lfohvh Apply 1 cm to left eye as 3.5 g 2 04/07/20 07/07/20 Discontin thasone (MAXITROL) 3.5 directed twice daily. 17 17 ued mg/g-10,000 unit/g-0.1 % ophthalmic ointmentIndications: Panuveitis of left eye posaconazole EC (NOXAFIL) Take 4 Tabs by mouth 112 Tab 3 05/06/20 Discontin 100 mg tablet daily with breakfast. 17 17 ued potassium chloride(+) Take 2 capsules by mouth 90 capsule 3 06/09/20 07/09/20 Discontin (MICRO-K) 10 mEq capsule twice daily. Take with a 17 17 ued meal and a full glass of water. leucovorin 25 mg tab Take 1 tablet by mouth 30 tablet 11 06/28/20 daily for 30 days. 17 17 BECLOMETHASONE Once daily to increase 240 mL 3 06/30/20 07/09/20 Discontin DIPROPIONATE appetite. 17 17 ued (BECLOMETHASONE(#) IN CORN OIL) 2 mg/mL levothyroxine (SYNTHROID) Take 1 tablet by mouth 90 tablet 0 09/29/20 10/04/20 Discontin 75 mcg tablet daily 30 minutes before 17 17 ued breakfast. levothyroxine (SYNTHROID) Take 1 tablet by mouth 90 tablet 0 07/14/20 07/21/20 Discontin 75 mcg tablet daily 30 minutes before 17 17 ued breakfast. ergocalciferol (VITAMIN Take 1 capsule by mouth 12 capsule 1 07/21/20 07/21/20 Discontin D-2) 50,000 unit capsule every 7 days. 17 ued Active Problems Problem Noted Date Low serum vitamin D 07/21/2017 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 05/04/2017 Subarachnoid hemorrhage following injury, with loss of consciousness ([facility]) 04/28/2017 Lesion of cerebellum 04/28/2017 Overview: Etiology of the brain lesions is still unknown Impaired mobility and activities of daily living 04/28/2017 SAH (subarachnoid hemorrhage) ([facility]) 04/27/2017 Pancytopenia ([facility]) 04/20/2017 DM w/o complication type II ([facility]) 04/20/2017 Closed intertrochanteric fracture of left femur ([facility]) 04/20/2017 Traumatic compression fracture of T11 thoracic vertebra ([facility]) 04/20/2017 Sympathetic storming 04/20/2017 Leukocytopenia 04/20/2017 Hypothyroid 04/20/2017 Subarachnoid bleed ([facility]) 04/16/2017 Panuveitis of left eye 04/07/2017 Last Assessment & Plan: - unclear etiology, w significant interval change in exam findings since exam 03/24 - in setting of hx of AML, concern for toxoplasmosis vs Hypoxia 02/16/2017 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remission ([facility]) 02/16/2017 H/O bone marrow transplant ([facility]) 02/16/2017 Thrombocytopenia ([facility]) 01/05/2017 Primary hyperparathyroidism ([facility]) 12/01/2016 Lesion of oral mucosa 12/01/2016 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 Nasal cavity mass 04/30/2017 05/26/2017 Overview: Added automatically from request for surgery [id number] Traumatic brain injury ([facility]) 04/28/2017 05/26/2017 Closed displaced intertrochanteric fracture of left femur ([facility]) 04/28/2017 05/26/2017 Cognitive impairment 04/28/2017 07/16/2017 Delirium 04/25/2017 05/26/2017 Sleep disturbance 04/25/2017 05/26/2017 Hyponatremia 04/25/2017 07/16/2017 Vitamin D deficiency 04/25/2017 05/26/2017 Acute pain due to trauma 04/20/2017 05/26/2017 Cerebellar stroke ([facility]) 04/20/2017 07/16/2017 Overview: right Abrasion of face 04/20/2017 05/26/2017 Hypertension 04/20/2017 05/26/2017 Hypokalemia 04/20/2017 05/26/2017 Acute blood loss anemia 04/20/2017 05/26/2017 Thrombocytopenia ([facility]) 04/20/2017 05/26/2017 Dysphagia 04/20/2017 05/26/2017 Facial laceration 04/20/2017 05/26/2017 Facial abrasion 04/20/2017 05/26/2017 Uveitis 04/20/2017 05/26/2017 Overview: Left eye Hip fracture ([facility]) 04/16/2017 05/26/2017 Pneumonia of both lungs due to infectious organism 04/15/2017 05/26/2017 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 04/05/2017 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 03/24/2017 Last Assessment & Plan: Concern for new onset NAION with new APD, disc hemorrhage and drop in vision FA Today or in 1 week to confirm findings No symptoms of GCA however will order ESR and CRP Hyperbilirubinemia 02/19/2017 05/26/2017 Watery diarrhea 02/19/2017 05/26/2017 High fever 02/16/2017 04/05/2017 Disorientation 02/16/2017 04/05/2017 Pneumonia 02/16/2017 05/26/2017 Acute respiratory failure with hypoxia ([facility]) 02/16/2017 03/24/2017 SIM (acute kidney injury) ([facility]) 02/16/2017 03/24/2017 Sepsis ([facility]) 02/16/2017 05/26/2017 History of pancytopenia 02/16/2017 05/26/2017 Bruise of muscle 11/10/2016 01/13/2017 Hypomagnesemia 10/20/2016 07/16/2017 Thrush 10/13/2016 05/26/2017 Cytomegalovirus (CMV) viremia ([facility]) 10/13/2016 04/05/2017 Hypokalemia 09/24/2016 05/26/2017 Electrolyte imbalance 09/22/2016 05/26/2017 Chemotherapy-induced neuropathy ([facility]) 09/22/2016 07/16/2017 Recurrent Clostridium difficile diarrhea 09/22/2016 05/26/2017 Heme positive stool 08/14/2016 09/18/2016 Depression 08/14/2016 05/26/2017 Anxious mood 08/14/2016 01/13/2017 Cytomegalovirus (CMV) viremia ([facility]) 08/13/2016 09/18/2016 Total bilirubin, elevated 08/13/2016 05/26/2017 Generalized edema 08/13/2016 09/22/2016 Acute respiratory failure with hypoxia ([facility]) 08/05/2016 08/13/2016 Septic shock ([facility]) 08/04/2016 08/13/2016 Diarrhea 07/28/2016 04/05/2017 Hyperopia with presbyopia of both eyes 06/24/2016 05/26/2017 Last Assessment & Plan: Updated glasses prescription given at today's exam. Hyperparathyroidism ([facility]) 06/10/2016 05/26/2017 C. difficile diarrhea 05/16/2016 06/01/2016 CMV infection ([facility]) 05/11/2016 09/18/2016 SIM (acute kidney injury) ([facility]) 04/27/2016 05/19/2016 Decubitus ulcer, stage 2 04/22/2016 05/19/2016 Overview: Left buttock and left heel Ncayq-aphovp-vbon disease, acute ([facility]) 04/16/2016 05/26/2017 Acute respiratory failure with hypoxia and hypercapnia ([facility]) 03/23/2016 Aspiration into lower respiratory tract 03/23/2016 04/19/2016 On mechanically assisted ventilation ([facility]) 03/23/2016 04/19/2016 Successful cardiopulmonary resuscitation 03/23/2016 04/19/2016 Acute pericardial effusion 03/23/2016 04/19/2016 E coli bacteremia 03/14/2016 04/19/2016 Cellulitis 03/14/2016 04/19/2016 Hypophosphatemia 03/13/2016 04/19/2016 On total parenteral nutrition 03/11/2016 04/19/2016 Mucositis due to antineoplastic therapy 03/08/2016 04/19/2016 Headache 03/04/2016 04/19/2016 H/O peripheral stem cell transplant (HCC) 03/03/2016 01/13/2017 Overview: Date of Transplant: 03/02/16 Preparative Regimen: Fludarabine/Melphalan Fully ablative/reduced intensity/NST: KAYLEE Disease: AML (from [facility]) Disease status at transplant: 1st CR Cytogenetic/Fish AT DIAGNOSIS: HLA Match: 8:8 Donor & Cell source: matched sib (sister) [id number] PSC CMV: both POS ABO: both O POS Consents/Studies: 8322, blood, H&P, KAYLEE Flu/Hermila allo consent Coordinator: RUDDY MCKINNON RN Chemotherapy-induced nausea 03/02/2016 04/19/2016 Hypercalcemia 03/02/2016 04/19/2016 Fungal pneumonia 01/24/2016 04/05/2017 Pancytopenia due to antineoplastic chemotherapy (HCC) 12/31/20152015 Pain 12/18/2015 05/19/2016 Night sweats 12/15/2015 01/27/2016 Apical abscess 12/14/2015 01/27/2016 Hypokalemia 12/13/2015 02/29/2016 Neutropenic fever (HCC) 12/13/2015 01/27/2016 Frontal sinus pain 12/13/2015 01/27/2016 Chronic illness 12/02/2015 01/13/2017 AML (acute myelogenous leukemia) 11/30/2015 05/26/2017 Pancytopenia (HCC) 11/30/2015 02/29/2016 Admission for antineoplastic chemotherapy 11/30/2015 01/27/2016 Retinal edema right eye 09/27/2015 05/26/2017 Last Assessment & Plan: Improved appearance today vs previous OCT Monitor for visual change 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 Patient educated on the slow, progressive nature of the condition. Cautioned patient on the affect on driving and night vision. Monitor. Vitreous hemorrhage of both eyes (HCC) 04/09/2015 05/26/2017 Last Assessment & Plan: Cleared today Myeloproliferative disorder 01/21/2015 05/26/2017 Sepsis (HCC) 01/21/2015 01/27/2016 Thigh pain 01/21/2015 05/19/2016 SIM (acute kidney injury) (HCC) 01/21/2015 04/19/2016 Cellulitis of labia 01/21/2015 05/11/2016 HTN (hypertension) 01/21/2015 05/26/2017 Overview: 02/11/16-Echo: EF 55%. Normal chamber sizes. Focal, nodular thickening of what appears to be the left coronary cusp of the AV, this was present on the prior study of 12/20/15. Pulmonary artery pressure=29mmHg 12/20/15-Echo: EF 60%. Bi atrial enlargement. Mild assymmetric hypertrophy of the LV septum. Trace mitral and tricuspid valve regurgitation. Mild pulmonary hypertension (PAP=45 mmHg). Vision impairment 01/21/2015 05/26/2017 Hypophosphatemia 01/10/2015 01/27/2016 HLD (hyperlipidemia) 01/09/2015 05/26/2017 DM (diabetes mellitus) 01/09/2015 05/26/2017 Leukocytosis 01/09/2015 01/27/2016 Encounters Date Type Specialty Care Team Description 07/29/2017 Pharmacy Visit 07/28/2017 [facility] Oncology Annalee Virk MD Encounter 07/28/2017 Office Visit Oncology Annalee Virk MD H/O stem cell transplant (HCC) (Primary Dx) 07/28/2017 Nurse Only Oncology Annalee Virk MD History of stem cell transplant (HCC) 07/21/2017 Hospital Oncology Annalee Virk MD Encounter 07/21/2017 Office Visit Oncology Claudine Mendoza APRN History of stem cell Tiff Mendoaz transplant (HCC) (Primary STATION AGENT Dx);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remission (HCC);Acquired hypothyroidism;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HCC);Type 2 diabetes mellitus without complication, with long-term current use of insulin (HCC);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;Pancytopenia (HCC);Low serum vitamin D 07/21/2017 Nurse Only Oncology Tiff Mendoza H/O stem cell transplant STATION AGENT (HCC) 07/20/2017 Orders Only Oncology Annalee Virk MD H/O stem cell transplant (HCC) (Primary Dx) 07/16/2017 Office Visit Oncology Luis Moody MD 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remission (HCC) (Primary Dx);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;Type 2 diabetes mellitus without complication, with long-term current use of insulin (HCC);H/O bone marrow transplant ([facility]);Hypogammaglobulinem ia (HCC) 07/16/2017 Nurse Only Oncology Luis Moody MD 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remission ([facility]);H/O bone marrow transplant ([facility]);Cough 07/14/2017 Telephone Endocrinology, Metabolism Miriam Conti , Results & Genetics 07/14/2017 Pharmacy Visit 07/09/2017 Hospital Radiology Luis Moody MD Encounter 07/09/2017 Office Visit Oncology Luis Moody MD 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remission ([facility]) (Primary Dx);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;H/O bone marrow transplant ([facility]);Steroid myopathy;Cough 07/09/2017 Nurse Only Oncology Luis Moody MD H/O stem cell transplant ([facility]);Acquired hypothyroidism;Hypovitami nosis D;Type 2 diabetes mellitus with complication, with long-term current use of insulin (HCC) 07/09/2017 Office Visit Endocrinology, Metabolism Miriam Conti, Type 2 diabetes mellitus & Genetics with complication, with long-term current use of insulin ([facility]) (Primary Dx);Acquired hypothyroidism;Hypovitami nosis D;Osteoporosis with current pathological fracture, unspecified osteoporosis type, sequela;Hyperparathyroidi sm ([facility]) 07/09/2017 Clinical Endocrinology, Metabolism Hypercalcemia;Hyperparath Support & Genetics yroidism ([facility]);Osteopenia, unspecified location;Postmenopausal 07/07/2017 Office Visit Ophthalmology Sourav Crane MD Panuveitis of left eye 06/30/2017 Office Visit Oncology Annalee Virk MD H/O stem cell transplant (HCC) (Primary Dx) 06/30/2017 Nurse Only Oncology Annalee Virk MD 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remission (HCC);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HCC) 06/28/2017 Office Visit Infectious Diseases Kirill Christine MD Toxoplasma encephalitis (HCC) (Primary Dx);Pancytopenia due to chemotherapy (HCC);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HCC) 06/24/2017 Hospital Oncology Luis Moody MD Encounter 06/24/2017 Nurse Only Oncology Luis Moody MD H/O stem cell transplant (HCC) 06/24/2017 Office Visit Oncology Luis Moody MD 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remission (HCC) (Primary Dx);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;Pancytopenia due to chemotherapy (HCC);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HCC);Thrombocytopenia (HCC) 06/21/2017 [facility] Radiology Shane Sam MD Encounter 06/21/2017 Office Visit Orthopedic Surgery Shane Sam MD Closed displaced intertrochanteric fracture of left femur with routine healing, subsequent encounter (Primary Dx) 06/21/2017 [facility] Russel Cornejo MD Dysphagia, unspecified Encounter type 06/21/2017 Anesthesia Berto Delong MD Event 06/21/2017 Procedure Pass 06/21/2017 Surgery Russel Cornejo MD ESOPHAGOGASTRODUODENOSCOP Y 06/17/2017 Office Visit Oncology 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[facility]) (Primary Dx);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remission (HCC);Chronic fatigue;Anxiety and depression;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[facility]);Esophageal dysphagia 06/17/2017 Office Visit Oncology Annalee Virk MD Dysphagia, unspecified type (Primary Dx);H/O stem cell transplant (HCC) 06/17/2017 Hospital Oncology Annalee Virk MD Encounter 06/17/2017 Clinical Luis Moody MD Oropharyngeal dysphagia Support Tyler Betts, (Primary Dx) 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 06/17/2017 [facility] Radiology Luis Moody MD Encounter 06/16/2017 Orders Only Oncology Annalee Virk MD 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remission (HCC) (Primary Dx) 06/15/2017 Orders Only Orthopedic Surgery Shane Sam MD Post- operative state (Primary Dx) 06/10/2017 Orders Only Oncology Lakshmi Guzman, Type 2 diabetes mellitus RN with other specified complication (HCC) (Primary Dx) 06/10/2017 Orders Only Oncology Lakshmi Guzman, Type 2 diabetes mellitus RN treated with insulin (HCC) (Primary Dx) 06/10/2017 Documentation Oncology Lakshmi Guzman RN 06/10/2017 Documentation Oncology Lakshmi Guzman RN 06/09/2017 Office Visit Oncology Annalee Virk MD H/O stem cell transplant (HCC) (Primary Dx) 06/09/2017 Hospital Oncology Annalee Virk MD Encounter 06/08/2017 Orders Only Oncology Luis Moody MD History of stem cell transplant (HCC) (Primary Dx) 06/07/2017 Orders Only Oncology Dang Sweeney, brazing machine tender myeloid leukemia not having achieved remission (HCC) 06/03/2017 Telephone Oncology Juanita Ken, ROSARIO BMT Follow-up 06/02/2017 Office Visit Oncology Annalee Virk MD 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HCC) 06/02/2017 [facility] Oncology Annalee Virk MD Encounter 05/26/2017 Office Visit Oncology Berna Franks, Anxiety and depression MD (Primary Dx);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remission (HCC);Other fatigue;Headache above the eye region 05/26/2017 Office Visit Oncology Luis Moody MD 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remission (HCC) (Primary Dx);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;H/O bone marrow transplant (HCC);Lesion of cerebellum;Pancytopenia due to chemotherapy (HCC);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HCC);Steroid myopathy;Thrombocytopenia (HCC) 05/26/2017 Hospital Oncology Luis Moody MD Encounter 05/26/2017 [facility] Radiology Annalee Virk MD Encounter 05/19/2017 [facility] Oncology Luis Moody MD Encounter 05/19/2017 Office Visit Ophthalmology Sourav Crane MD Vitritis of left eye 05/19/2017 Orders Only Oncology Kandi Branham RN H/O stem cell transplant (HCC) (Primary Dx) 05/13/2017 Office Visit Oncology Annalee Virk MD Acute myeloid leukemia not having achieved remission (HCC) (Primary Dx) 05/13/2017 Office Visit Oncology Annalee Virk MD Pain of left hip joint Berna Franks, (Primary Dx);Acute MD myeloid leukemia in remission (HCC);Decreased appetite;Insomnia due to medical condition;Neoplastic malignant related fatigue;Acquired lesion of central nervous system 05/13/2017 Hospital Oncology Annalee Virk MD Encounter 05/13/2017 Office Visit Ophthalmology Sourav Crane MD Vitritis of left eye 05/13/2017 Procedure Pass Radiology 05/13/2017 Orders Only Oncology oYko Smith RN History of stem cell transplant (HCC) (Primary Dx) 05/12/2017 Hospital Sourav Crane MD Panuveitis, left eye Encounter 05/12/2017 Orders Only Oncology Annalee Virk MD History of stem cell transplant (HCC) (Primary Dx) 05/10/2017 Hospital Radiology Shane Sam MD Encounter 05/10/2017 Office Visit Orthopedic Surgery Shane Sam MD Closed displaced intertrochanteric fracture of left femur with routine healing, subsequent encounter (Primary Dx) 05/07/2017 Orders Only Orthopedic Surgery Shane Sam MD Post- operative state (Primary Dx) 05/06/2017 Orders Only Oncology Claudine Mendoza APRN 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HCC) (Primary Dx) 05/03/2017 Anesthesia Tyler Dudley CRNA Event 05/03/2017 Procedure Pass 05/03/2017 Surgery Charlotte Montelongo MD FUNCTIONAL ENDOSCOPY SINUS SURGERY WITH MAXILLARY ANTROSTOMY 05/01/2017 Procedure Pass 05/01/2017 Procedure Pass 05/01/2017 Procedure Pass 04/30/2017 [facility] Alexis Addison MD Nasal cavity mass - Encounter Edward Belcher DO 05/06/2017 04/29/2017 Procedure Pass Rehabilitation 04/29/2017 Procedure Pass Rehabilitation 04/27/2017 Hospital Rehabilitation Asha Henry MD Subarachnoid hemorrhage - Encounter following injury, with 04/30/2017 loss of consciousness (HCC) from Last 3 Months Immunizations Name Dates Previously Given Next Due Flu Vaccine=>6 Months 06/24/2017 Quadrivalent PF Flu Vaccine 06/25/2016 Quadrivalent=>3 Yo (Preservative Free) Hepatitis B Vaccine Adult 12/15/2016 3 Dose IM Hepatitis B Vaccine Ill 10/13/2016 Patient 4 Dose IM Hib conj vaccine, 4 dose 03/12/2017, 12/15/2016, 10/13/2016 (PRP-T) IM (ActHIB) IPV 03/12/2017, 12/15/2016, 10/13/2016 Meningococcal Conjug 10/13/2016 Vaccine IM (MenACWY-D)(Menactra) Pneumococcal 03/12/2017, 12/15/2016, 10/13/2016 Vaccine(13-Oxana Peds/immunocompromised adult) Tdap Vaccine 03/12/2017, 12/15/2016, 10/13/2016 Family History Medical History Relation Name Comments Diabetes Brother Other Father etoh liver Other Mother during Diabetes Type II Other Hypertension Other Diabetes Sister Amblyopia Neg Hx Blindness Neg Hx Cataract Neg Hx Glaucoma Neg Hx Macular Degen Neg Hx Retinal Detachment Neg Hx Strabismus Neg Hx Relation Name Status Comments Brother Alive Father Mother Other Sister Alive Social History Tobacco Use Types Packs/Day Years Used Date Never Smoker Smokeless Tobacco: Never Used Tobacco Cessation: Counseling Given: Yes Alcohol Use Drinks/Week oz/Week Comments No 0 Standard 0.0 drinks or equivalent Sex Assigned at Date Recorded Not on file Last Filed Vital Signs Vital Sign Reading Time Taken Blood Pressure 125/59 07/28/2017 2:16 PM CDT Pulse 82 07/28/2017 2:16 PM CDT Temperature 36.3 C (97.4 F) 07/28/2017 2:16 PM CDT Respiratory Rate 12 07/28/2017 2:16 PM CDT Oxygen Saturation 100% 07/28/2017 2:16 PM CDT Inhaled Oxygen - - Concentration Weight 58.6 kg (129 lb 3.2 oz) 07/28/2017 2:16 PM CDT Height 166.6 cm (5' 5.59") 07/28/2017 2:16 PM CDT Body Mass Index 21.11 07/28/2017 2:16 PM CDT Plan of Treatment Date Type Specialty Care Team Description 06/28/2017 Procedure Pass Infectious Diseases Health Maintenance Due Date Last Done Comments PHYSICAL (COMPREHENSIVE) 12/10/1963 EXAM MICROALBUMIN 1974 PNEUMONIA VACCINE (DM) 1974 CERVICAL CANCER SCREENING 1986 COLORECTAL CANCER 2006 SCREENING SHINGLES VACCINE 2016 BREAST CANCER SCREENING 02/12/2017 02/13/2016 HBA1C 01/06/2018 07/09/2017, 07/09/2017, 04/29/2017, Additional history exists FOOT EXAM 02/26/2018 02/26/2017 DILATED EYE EXAM 07/07/2018 07/07/2017, 04/07/2017, 03/24/2017, Additional history exists TETANUS VACCINE 03/12/2027 03/12/2017, 12/15/2016, 10/13/2016 HEPATITIS C SCREENING Completed 01/09/2015 PERTUSSIS VACCINE Completed 03/12/2017, 12/15/2016, 10/13/2016 INFLUENZA VACCINE Completed 06/24/2017, 06/25/2016 Implants Implanted Type Area Retail Account Representative Device Expiration Model / Identifier Date Serial / Lot Port Power Med 8fr Clearvue - Snone Right: CR BARD:ACCESS [id number] 12/08/2016 [id number] / Implanted: Qty: 1 on 12/18/2015 by Chest Wall SYS [id number] NONE / Zackery Jaimes MD [id number] Cath 19cm 12fr Hk Trf - S. Right: CR BARD:ACCESS [id number] / Implanted: Qty: 1 on 02/25/2016 by Chest Wall SYS [id number] . / Ra Pulliam MD [id number] Catheter 19cm 12fr Mahoney Right: CR BARD:ACCESS [id number] / Trifusion [place] 3 Lumen - S. Chest Wall SYS . / Implanted: Qty: 1 on 08/21/2016 by [id number] Ovidio Varela MD Nail 10mm 380mm Femoral Left Left: Hip SYNTHES:SYNTHES 01/08/2026 [id number] Proximal Tfn-Advanced Lateral USA S / Implanted: Qty: 1 on 04/19/2017 by N/A / Shane Sam MD [id number] Blade Intramedullary Nail Gold Left: Hip UNIDENTIFIED 07/10/2026 [id number] 100mm 10.35mm Tfn-Advanced MFG S / Implanted: Qty: 1 on 04/19/2017 by N/A / Shane Sam MD [id number] Screw Bone 5mm 8mm 40mm Titanium Left: Hip SYNTHES:SYNTHES 458.940 / Full Thread Femur Blunt Tip [facility] N/A / Implanted: Qty: 1 on 04/19/2017 by N/A Shane Sam MD Procedures Procedure Name Priority Date/Time Associated Diagnosis Comments ESOPHAGOGASTRODUODENOSCOP 06/21/2017 Dysphagia, unspecified Y BIOPSY 9:25 AM CDT type ESOPHAGOGASTRODUODENOSCOP 06/21/2017 Dysphagia, unspecified Y 9:25 AM CDT type TELEMETRY STRIPS-SCAN 05/13/2017 Results for this 2:52 PM CDT procedure are in the results section. CONSULT IV THERAPY TEAM Routine 05/05/2017 3:53 PM CDT CONSULT IV THERAPY TEAM Routine 05/04/2017 2:52 PM CDT ECG UNCONFIRMED-SCAN 05/04/2017 Results for this 1:31 PM CDT procedure are in the results section. ECG UNCONFIRMED-SCAN 05/04/2017 Results for this 1:31 PM CDT procedure are in the results section. FUNCTIONAL ENDOSCOPY 05/03/2017 Nasal cavity mass SINUS SURGERY WITH 12:20 PM CDT MAXILLARY ANTROSTOMY CONSULT IV THERAPY TEAM Routine 05/01/2017 10:25 PM CDT TELEMETRY STRIPS-SCAN 04/29/2017 Results for this 2:02 PM CDT procedure are in the results section. from Last 3 Months Results * CBC AND DIFF (07/28/2017 2:09 PM) Only the most recent of 18 results within the time period is included. Component Value Ref Range White Blood Cells 2.6 (L) 4.5 - 11.0 K/UL RBC 2.46 (L) 4.0 - 5.0 M/UL Hemoglobin 9.7 (L) 12.0 - 15.0 GM/DL Hematocrit 28.6 (L) 36 - 45 % MCV 116.3 (H) 80 - 100 FL MCH 39.5 (H) 26 - 34 PG MCHC 34.0 32.0 - 36.0 G/DL RDW 14.2 11 - 15 % Platelet Count 75 (L) 150 - 400 K/UL MPV 7.0 7 - 11 FL Segmented Neutrophils 25 (L) 41 - 77 % Bands 4 0 - 10 % Lymphocytes 33 24 - 44 % Monocytes 24 (H) 4 - 12 % Eosinophil 2 0 - 5 % Metamyelocyte 10 % Myelocyte 2 % ANISO PRESENT POIK PRESENT Ovalocyte PRESENT Platelet Estimate MOD DEC Absolute Neutrophil Count 0.75 (L) 1.8 - 7.0 K/UL Manual Specimen Performing Laboratory Blood [facility] [address] [place] [address] * COMPREHENSIVE METABOLIC PANEL (07/28/2017 2:09 PM) Only the most recent of 14 results within the time period is included. Component Value Ref Range Sodium 137 137 - 147 MMOL/L Potassium 4.9 3.5 - 5.1 MMOL/L Chloride 110 98 - 110 MMOL/L Glucose 143 (H) 70 - 100 MG/DL Blood Urea Nitrogen 46 (H) 7 - 25 MG/DL Creatinine 1.43 (H) 0.4 - 1.00 MG/DL Calcium 9.7 8.5 - 10.6 MG/DL Total Protein 5.4 (L) 6.0 - 8.0 G/DL Total Bilirubin 0.4 0.3 - 1.2 MG/DL Albumin 3.6 3.5 - 5.0 G/DL Alk Phosphatase 218 (H) 25 - 110 U/L AST (SGOT) 29 7 - 40 U/L CO2 23 21 - 30 MMOL/L ALT (SGPT) 25 7 - 56 U/L Anion Gap 4 3 - 12 eGFR Non 37 (L) >60 mL/min Comment: The eGFR is not validated for use in drug dosing adjustments. Continue to use estimated creatinine clearance per dosing reference text. Please contact the Clinical Pharmacist for questions. eGFR 45 (L) >60 mL/min Comment: The eGFR is not validated for use in drug dosing adjustments. Continue to use estimated creatinine clearance per dosing reference text. Please contact the Clinical Pharmacist for questions. Specimen Performing Laboratory Blood [facility] [address] [place] [address] * MAGNESIUM (07/21/2017 2:20 PM) Only the most recent of 16 results within the time period is included. Component Value Ref Range Magnesium 2.1 1.6 - 2.6 mg/dL Specimen Performing Laboratory Blood [facility] [address] [place] [address] * IMMUNOGLOBULIN G (IGG) (07/16/2017 11:55 AM) Component Value Ref Range IgG 442 (L) 762 - 1488 MG/DL Specimen Performing Laboratory Blood [facility] [address] [place] [address] * CHEST 2 VIEWS (07/09/2017 2:46 PM) Specimen Performing Laboratory [facility] RESULTS Impressions No acute cardiopulmonary abnormality. Approved by Alfonso Parrish M.D. on 07/09/2017 3:41 PM By my electronic signature, I attest that I have personally reviewed the images for this examination and formulated the interpretations and opinions expressed in this report Finalized by Cholo Ybarra M.D. on 07/09/2017 4:07 PM. Dictated by Alfonso Parrish M.D. on 07/09/2017 3:00 PM. Narrative CHEST 2 VIEWS Clinical Indication:Female, 61 years old. 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 Comparison: Chest x-ray April 16, 2017. CT chest May 01, 2017. Findings: Heart size and pulmonary vasculature are within normal limits. No consolidation , pleural effusion, or pneumothorax. Procedure Note Interface, Radiant Results - 07/09/2017 4:10 PM CDT CHEST 2 VIEWS Clinical Indication: Female, 61 years old. 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 Comparison: Chest x-ray April 16, 2017. CT chest May 01, 2017. Findings: Heart size and pulmonary vasculature are within normal limits. No consolidation , pleural effusion, or pneumothorax. IMPRESSION No acute cardiopulmonary abnormality. Approved by Alfonso Parrish M.D. on 07/09/2017 3:41 PM By my electronic signature, I attest that I have personally reviewed the images for this examination and formulated the interpretations and opinions expressed in this report Finalized by Cholo Ybarra M.D. on 07/09/2017 4:07 PM. Dictated by Alfonso Parrish M.D. on 07/09/2017 3:00 PM. * 25-OH VITAMIN D (D2 + D3) (07/09/2017 12:41 PM) Component Value Ref Range Vitamin D(25-OH)Total 18.3 (L) 30 - 80 NG/ML Specimen Performing Laboratory Blood [facility] [address] [place] [address] * THYROID STIMULATING HORMONE-TSH (07/09/2017 12:41 PM) Component Value Ref Range TSH 7.642 (H) 0.35 - 5.00 MCU/ML Specimen Performing Laboratory [facility] [address] [place] [address] * FREE T4 (FREE THYROXINE) ONLY (07/09/2017 12:41 PM) Component Value Ref Range T4-Free 0.6 0.6 - 1.6 NG/DL Specimen Performing Laboratory [facility] [address] [place] [address] * POC GLUCOSE QUANTITATIVE BLOOD (07/09/2017 11:41 AM) Component Value Ref Range Glucose, POC 194 Specimen Performing Laboratory Blood, capillary IN CLINIC * POC HEMOGLOBIN A1C (07/09/2017 11:41 AM) Component Value Ref Range Poc Hemoglobin A1C 5.8 Specimen Performing Laboratory Blood, capillary - Blood IN CLINIC * BONE DENSITY SPINE/HIP (07/09/2017) Specimen Performing Laboratory IN CLINIC * CMV QUANT PCR-BLOOD (06/30/2017 2:37 PM) Only the most recent of 8 results within the time period is included. Component Value Ref Range IU/mL CMV Blood <50 IU/mL The test method detects and quantitates CMV DNA using the [employer] RealTime assay, and is approved by the FDA for monitoring hematopoietic stem cell transplant patients who are undergoing anti-CMV therapy. Please correlate results with the clinical status of the patient. NOTE NEW METHODOLOGY LOG10 CMV <1.7 CMV DNA Quant PCR CMV DNA NOT DETECTED CMVND-CMV DNA NOT DETECTED [IU]/mL Specimen Performing Laboratory [facility] [address] [place] [address] * HIP 2-3 VIEWS W PELVIS LT (06/21/2017 12:24 PM) Only the most recent of 2 results within the time period is included. Specimen Performing Laboratory [facility] RESULTS Impressions 1.Partial progressive near complete healing of the left proximal femur intertrochanteric fracture traversed by intramedullary femoral nail and femoral neck blade. 2.Partial progressive near complete healing of the mildly displaced left lesser trochanter fracture, with moderate amount of new heterotopic bone. 3.Borderline bilateral coxa profunda, with moderate bilateral axial joint space narrowing of the hips. Finalized by Arash Keller M.D. on 06/21/2017 1:47 PM. Dictated by Arash Keller M.D. on 06/21/2017 1:44 PM. Narrative Exam: HIP 2-3 VIEWS W PELVIS LT CLINICAL INDICATION: 61 years Female; FX. Fracture follow-up care. COMPARISON: Pelvis and left hip radiographs from 05/10/2017. Procedure Note Interface, Radiant Results - 06/21/2017 1:51 PM CDT Exam: HIP 2-3 VIEWS W PELVIS LT CLINICAL INDICATION: 61 years Female; FX. Fracture follow-up care. COMPARISON: Pelvis and left hip radiographs from 05/10/2017. IMPRESSION 1. Partial progressive near complete healing of the left proximal femur intertrochanteric fracture traversed by intramedullary femoral nail and femoral neck blade. 2. Partial progressive near complete healing of the mildly displaced left lesser trochanter fracture, with moderate amount of new heterotopic bone. 3. Borderline bilateral coxa profunda, with moderate bilateral axial joint space narrowing of the hips. Finalized by Arash Keller M.D. on 06/21/2017 1:47 PM. Dictated by Arash Keller M.D. on 06/21/2017 1:44 PM. * SURGICAL PATHOLOGY (06/21/2017 10:44 AM) Only the most recent of 2 results within the time period is included. Component Value Ref Range PATHOLOGY REPORT [email or web address] Tricia Jerry MD, PhD, Director of Anatomic Pathology Department of Pathology and Laboratory Medicine [address] [place] [id number] Surgical Pathology Office: [phone] SURGICAL PATHOLOGY REPORT NAME: DONNA PITTS SURG PATH #: [id number] MR #: [id number] SPECIMEN CLASS: SR BILLING #: [id number] ALT ID #: LOCATION: [facility] DATE OF PROCEDURE: 06/21/2017 AGE: 61 SEX: F DATE RECEIVED: 06/21/2017 : 1955 TIME RECEIVED: 10:44 PHYSICIAN: RUSSEL CORNEJO DATE OF REPORT: 06/22/2017 COPY TO: DATE OF PRINTIN06/22/2017 ################################################## ###################### Final Diagnosis: A. Gastric mucosa, "gastric body biopsy": No diagnostic abnormalities. No H. pylori-like organisms are identified on H and E sections. Attestation: By this signature, I attest that I have personally formulated the final interpretation expressed in this report and that the above diagnosis is based upon my examination of the slides and/or other material indicated in this report. +++ +++ Gregory Carroll MD Resident ksw/06/21/2017 ################################################## ###################### Material Received: A: gastric body biopsy History: 61-year-old female with a clinical history of dysphagia. Gross Description: A. Received in formalin labeled "gastric body biopsy" is a 0.9 x 0.3 x 0.2 cm aggregate of butler-brown soft tissue fragments. The specimen is entirely submitted in cassette A1. (jrz) jz/06/21/2017 Specimen Performing Laboratory [facility] RESULTS * EGD REPORT (06/21/2017 9:54 AM) Component Value Ref Range Provation Report Patient Name: Nitin Thompson Procedure Date: 06/21/2017 9:54 AM CSN: [id number] Date of : 1955 Gender: Female Attending Physician: Russel Cornejo MD Procedure: Upper GI endoscopy Indications: Dy sphagia. Patient with myelodysplastic/myeloproliferative neoplasm, morphologically favoring CMML-2, s/p 4 cycles of dacogen, progressed to AML, CR 1 after 7+3 and HIDAC x 1 Date of Transplant: 03/02/16 Providers: Russel Cornejo MD (Doctor), Bryce Morales RN (Nurse), Gisella Ortiz Sales Planning Analyst (Sales Planning Analyst) Referring Physician: Annalee Virk Medications: Mo nitored Anesthesia Care Complications: No [...] anticoagulant or antiplatelet agents. ASA Grade Assessment: II - A patient with mild systemic disease. After reviewing the risks and benefits, the patient was deemed in satisfactory condition to undergo the procedure. After obtaining informed consent, the endoscope was passed under direct vision. Throughout the procedure, the patient's blood pressure, pulse, and oxygen saturations were monitored continuously. The Endoscope [id number] was introduced through the mouth, and advanced to the second part of duodenum. The upper GI endoscopy was accomplished without difficulty. The patient tolerated the procedure well. Findings: There is no endoscopic evidence of esophagitis in the entire esophagus. There is no esophageal stricture found. The Z-line was irregular. Esophagogastric landmarks were identified: the gastroesophageal junction was found at 35 cm and the site of hiatal narrowing was found at 37 cm from the incisors. Diffuse severely erythematous mucosa without bleeding was found in the gastric fundus and in the gastric body. There was a small hiatal hernia on retroflex view of the stomach. One non-bleeding 4 mm superficial gastric ulcer with no stigmata of bleeding was found in the gastric body. Biopsies were taken with a cold forceps for histology. The gastric antrum was normal. The examined duodenum was normal. Impression: - Z-line irregular. - Erythematous mucosa in the gastric fundus and gastric body. - Non-bleeding small superficial gastric ulcer with no stigmata of bleeding. Biopsied. - Small hiatal hernia. - Normal antrum. - Normal examined duodenum. Estimated Blood Loss: Estimated blood loss: none. Recommendation: - Await pathology results. - Resume previous diet. - Continue present medications. May increase prilosec to 20 mg po BID - Return to referring physician as previously scheduled. - Discharge patient to home (ambulatory). Scope In: 10:06:08 AM Scope Out: 10:10:31 AM Total Procedure Duration Time 0 hours 4 minutes 23 seconds Procedure Code(s): --- Professional --- 59382, Esophagogastroduodenoscopy, flexible, transoral; with biopsy, single or multiple Diagnosis Code(s): --- Professional --- K22.8, Other specified diseases of esophagus K31.89, Other diseases of stomach and duodenum K25.9, Gastric ulcer, unspecified as acute or chronic, without hemorrhage or perforation R13.10, Dysphagia, unspecified CPT copyright 2016 [employer]. All rights reserved. The codes documented in this report are preliminary and upon favor maker review may be revised to meet current compliance requirements. Attending Participation: I personally performed the entire procedure. MD Russel Bernardo MD 06/21/2017 10:46:00 AM The attending physician has electronically signed and finalized this document. Number of Addenda: 0 Note Initiated On: 06/21/2017 9:54 AM Specimen Performing Laboratory [facility] OTHER RESULTS * POC GLUCOSE (06/21/2017 8:46 AM) Only the most recent of 32 results within the time period is included. Component Value Ref Range Glucose, POC 97 70 - 100 MG/DL Specimen Performing Laboratory [facility] [address] [place] [address] * VRE SCREEN (06/17/2017 12:45 PM) Only the most recent of 3 results within the time period is included. Component Value Ref Range Battery Name VRE SCREEN Specimen Description PERIRECTAL SWAB Special Requests NONE Culture VRE ISOLATED Complete susceptibility testing is not performed on surveillance culture. Positive cultures indicate carrier status and do not by themselves indicate a need for treatment. Report Status FINAL 06/18/2017 Specimen Performing Laboratory Perirectal Swab [facility] [address] [place] [address] * SWALLOW MOTION SERIES (06/17/2017 11:25 AM) Specimen Performing Laboratory [facility] RESULTS Impressions 1. No evidence of laryngeal penetration or aspiration with all tested consistencies of barium. 2. Please see separately dictated report from the Department of Speech Pathology for further description. Approved by Austin Law M.D. on 06/17/2017 4:26 PM By my electronic signature, I attest that I have personally reviewed the images for this examination and formulated the interpretations and opinions expressed in this report Finalized by Wagner Villatoro D.O. on 06/17/2017 10:05 PM. Dictated by Austin Law M.D. on 06/17/2017 1:57 PM. Narrative SWALLOW MOTION SERIES CLINICAL HISTORY: Female, 61 years old, oropharyngeal dysphagia TECHNIQUE: The procedure was performed in conjunction with members of the department of speech pathology. Video fluoroscopy was performed during swallowing of various consistencies of barium. The patient tolerated the procedure well and left the department in stable condition. TOTAL FLUOROSCOPY TIME: 62 seconds FINDINGS: No evidence of laryngeal penetration or aspiration with all tested consistencies of barium. Procedure Note Interface, Radiant Results - 06/17/2017 10:09 PM CDT SWALLOW MOTION SERIES CLINICAL HISTORY: Female, 61 years old, oropharyngeal dysphagia TECHNIQUE: The procedure was performed in conjunction with members of the department of speech pathology. Video fluoroscopy was performed during swallowing of various consistencies of barium. The patient tolerated the procedure well and left the department in stable condition. TOTAL FLUOROSCOPY TIME: 62 seconds FINDINGS: No evidence of laryngeal penetration or aspiration with all tested consistencies of barium. IMPRESSION 1. No evidence of laryngeal penetration or aspiration with all tested consistencies of barium. 2. Please see separately dictated report from the Department of Speech Pathology for further description. Approved by Austin Law M.D. on 06/17/2017 4:26 PM By my electronic signature, I attest that I have personally reviewed the images for this examination and formulated the interpretations and opinions expressed in this report Finalized by Wagner Villatoro D.O. on 06/17/2017 10:05 PM. Dictated by Austin Law M.D. on 06/17/2017 1:57 PM. * MRI HEAD WO/W CONTRAST (05/26/2017 10:44 AM) Only the most recent of 2 results within the time period is included. Specimen Performing Laboratory [facility] RESULTS Impressions 1.Decrease in size and number of multiple cerebral and cerebellar enhancing lesions. Differential considerations include improvement in ANIMAL GENETICIST leukemia or ANIMAL GENETICIST infection. 2.Resolution of the left subdural hematoma with decreased conspicuity or continued evolution of the left subarachnoid blood products. Approved by Honorio Salas M.D. on 05/26/2017 2:11 PM By my electronic signature, I attest that I have personally reviewed the images for this examination and formulated the interpretations and opinions expressed in this report Finalized by Froilan Castellanos M.D. on 05/26/2017 5:24 PM. Dictated by Honorio Salas M.D. on 05/26/2017 11:26 AM. Narrative MRI BRAIN WITH CONTRAST CLINICAL HISTORY: 61-year-old female, AML, enhancing right cerebellar lesion. TECHNIQUE: Multiplanar and multisequence MR imaging of the head was performed. This was done both before and after the administration of gadolinium contrast. COMPARISON: MRI brain April 29, 2017. IV CONTRAST: Multihance FINDINGS: Continued evolution of bilateral cerebral convexity subarachnoid blood products with resolution of associated GRE blooming artifact. Only minimal subarachnoid blood products are now noted along the left cerebral convexity. Interval decrease in size of the enhancing, targetoid lesion within the medial right cerebellar hemisphere, now measuring 1.4 cm (series 9 image 5), previously 1.9 cm. FLAIR hyperintensities about this lesion have slightly decreased. There has been interval decrease in conspicuity of multiple scattered enhancing nodular lesions with associated vasogenic edema throughout both cerebral hemispheres and brainstem. There has been essential resolution of enhancing lesions within the basal ganglia and right internal capsule. There has been essential resolution of the left subdural fluid collection with mild overlying dural thickening (series 9 image 15). The ventricles and subarachnoid spaces are otherwise stable. There is no midline shift. The vascular flow-voids are unremarkable. Diffusion weighted imaging is not indicative of acute or recent infarct. Procedure Note Interface, Radiant Results - 05/26/2017 5:27 PM CDT MRI BRAIN WITH CONTRAST CLINICAL HISTORY: 61-year-old female, AML, enhancing right cerebellar lesion. TECHNIQUE: Multiplanar and multisequence MR imaging of the head was performed. This was done both before and after the administration of gadolinium contrast. COMPARISON: MRI brain April 29, 2017. IV CONTRAST: Multihance FINDINGS: Continued evolution of bilateral cerebral convexity subarachnoid blood products with resolution of associated GRE blooming artifact. Only minimal subarachnoid blood products are now noted along the left cerebral convexity. Interval decrease in size of the enhancing, targetoid lesion within the medial right cerebellar hemisphere, now measuring 1.4 cm (series 9 image 5), previously 1.9 cm. FLAIR hyperintensities about this lesion have slightly decreased. There has been interval decrease in conspicuity of multiple scattered enhancing nodular lesions with associated vasogenic edema throughout both cerebral hemispheres and brainstem. There has been essential resolution of enhancing lesions within the basal ganglia and right internal capsule. There has been essential resolution of the left subdural fluid collection with mild overlying dural thickening (series 9 image 15). The ventricles and subarachnoid spaces are otherwise stable. There is no midline shift. The vascular flow-voids are unremarkable. Diffusion weighted imaging is not indicative of acute or recent infarct. IMPRESSION 1. Decrease in size and number of multiple cerebral and cerebellar enhancing lesions. Differential considerations include improvement in ANIMAL GENETICIST leukemia or ANIMAL GENETICIST infection. 2. Resolution of the left subdural hematoma with decreased conspicuity or continued evolution of the left subarachnoid blood products. Approved by Honorio Salas M.D. on 05/26/2017 2:11 PM By my electronic signature, I attest that I have personally reviewed the images for this examination and formulated the interpretations and opinions expressed in this report Finalized by Froilan Castellanos M.D. on 05/26/2017 5:24 PM. Dictated by Honorio Salas M.D. on 05/26/2017 11:26 AM. * TELEMETRY STRIPS-SCAN (05/13/2017 2:52 PM) Narrative Ordered by an unspecified provider. * PATHOLOGY INTEROPERATIVE REPORT SCAN (05/13/2017 10:17 AM) Narrative Ordered by an unspecified provider. * CULTURE-WOUND/TISSUE/FLUID(AEROBIC ONLY)W/SENSITIVITY (05/12/2017 2:45 PM) Only the most recent of 3 results within the time period is included. Component Value Ref Range Battery Name ROUTINE CULTURE Specimen Description SWAB LEFT EYE VITREOUS Special Requests HOLD 7 DAYS Culture NO GROWTH 7 DAYS Report Status FINAL 05/19/2017 Specimen Performing Laboratory Swab [facility] [address] [place] [id number] * FLOW CYTOMETRY (05/12/2017 2:23 PM) Only the most recent of 2 results within the time period is included. Component Value Ref Range PATHOLOGY REPORT [email or web address] Sophia Yip MD, Director of Clinical Laboratory [facility] Jordan MD, Director of Flow Cytometry Laboratory Department of Pathology and Laboratory Medicine [address] [place] [id number] Surgical Pathology Office: [phone] FLOW CYTOMETRY REPORT NAME: DONNA PITTS SURG PATH #: [id number] MR #: [id number] SPECIMEN CLASS: BILLING #: [id number] ALT ID #: LOCATION: [facility] DATE OF PROCEDURE: 05/12/2017 AGE: 61 SEX: F DATE RECEIVED: 05/12/2017 : 1955 TIME RECEIVED: 14:26 PHYSICIAN: SOURAV CRANE MD DATE OF REPORT: 05/14/2017 COPY TO: DATE OF PRINTIN05/14/2017 Material Received: A: Vitreous Fluid History: 61-year-old female with history of acute myeloid leukemia ################################################## ###################### Final Diagnosis: Vitreous Fluid, flow cytometry: Negative immunophenotypic study Interpretation: Myeloblasts are not detected. Lymphocytes comprise 96% of total events. The majority are T cells with a reduced CD4:CD8 ratio and normal antigen expression. T-cell large granular lymphocytes and NK cells comprise 34% and 20% of lymphocytes and have normal antigen expression. B cells are absent. There is no immunophenotypic evidence of non-Hodgkin lymphoma. Attestation: By this signature, I attest that I have personally formulated the final interpretation expressed in this report and that the above diagnosis is based upon my examination of the slides and/or other material indicated in this report. +++Electronically Signed Out By+++ [facility]/05/13/2017 Interpreted by: MD Mansoor Mckeon MBBS Resident 05/14/2017 ################################################## ###################### Lab Data: Flow Cytometry - Acute Myeloid Leukemia Screen Myeloid Associated Markers (% Positive Cells): ZS13p=4; CD13=0; CD33=0; XS600=3 Miscellaneous Markers (% Positive Cells): CD34=0; NS54=658; HLA-Dr=0 Cell Viability (%): 97 Number of Cells Analyzed: 8901 Total Number of Markers: 7 Summary of Marker Combinations: 34/117/33/13/11b/45/38/Dr Flow Cytometry - Lymphoma Panel B Cell Associated Markers (% Positive Cells): CD19=0; CD20=0; CD23=0; [place]=0; Lambda=0; [place]:Lambda ratio=n/a T Cell Associated Markers (% Positive Cells): CK0=460; CD3=98; CD4=48; CD5=97; CD7=88; CD8=53 CD4:CD8 ratio=0.9 Miscellaneous Markers (% Positive Cells): CD10=0; CD34=0; CD38=95; DL48=092; CD56=20; FMC7=0; YB783=5 Cell Viability (%): 97 Number of Cells Analyzed: 6532 Total Number of Markers: 23 Summary of Marker Combinations: [place]/Lambda/5/10/19/45/38/20; FMC7/23/5/34/200/45/19; 2/7/5/3/4/45/56/8 Flow Cytometry - Large Granular Lymphocyte/T Cell Receptor Panel T Cell Associated Markers (% Positive Cells): CD2=99; CD3=98; CD5=94; CD7=90; TCRab=95; TCRgd=1 Miscellaneous Markers (% Positive Cells): CD16=0; MC13=894; CD56=23; CD57=35; CD94=4 Cell Viability (%): 97 Number of Cells Analyzed: 6532 Total Number of Markers: 16 Summary of Marker Combinations: 2//5/16/57/45/56/3; TCRab/TCRgd/94/16/57/45/56/3 This test was developed and its performance characteristics determined by the [facility] Flow Cytometry Laboratory. It has not been cleared or approved by the U.S. Food and Drug Administration (FDA). The FDA has determined that such clearance or approval is not necessary. Specimen Performing Laboratory [facility] RESULTS * LEUKEMIA/LYMPHOMA PANEL FLUID/TISSUE (05/12/2017 2:23 PM) Only the most recent of 2 results within the time period is included. Component Value Ref Range Leuk/Lymph Interpretation SEE PATHOLOGY REPORT Specimen/LLM VITREOUS FLUID Specimen Performing Laboratory [facility] MAIN LAB [address] [place] [address] * [facility] I[facility] REFERENCE LAB (05/12/2017 12:30 PM) Component Value Ref Range Control Number [id number] Ref Lab Test Toxoplasma gondii Quantitative Realtime PCR (vitreous fluid) Ref Lab Result SEE COMMENTS TEST: Toxoplasma qPCR (vitreous fluid) RESULT: Not Detected Assay Range: 1,423 copies/mL to 1x10e8 copies/mL Expected Value: Not Detected The limit of quantitation (LOQ) is 1,423 copies/mL. Toxoplasma DNA detected below the LOQ will be reported as Detected: <1,423 copies/mL. This test was developed and its performance characteristics determined by [facility]. It has not been cleared or approved by the U.S. Food and Drug Administration. Results should be used in conjunction with clinical findings, and should not form the sole basis for a diagnosis or treatment decision. PCR tests are performed pursuant to a license agreement with [employer]. Testing Performed At: [facility] [address] [place] [address] CLIA ID: [id number] Specimen Performing Laboratory REFERENCE LAB * [facility] (05/12/2017 12:30 PM) Component Value Ref Range Test Toxoplasma gondii Quantitative Realtime PCR (vitreous fluid) Reference Lab [facility] Results Ref Lab SEE REF LAB RESULT Specimen Mail Vitreous fluid, left eye Specimen Performing Laboratory REFERENCE LAB * C DIFFICILE BY PCR (05/06/2017 12:32 PM) Component Value Ref Range Battery Name C DIFFICILE PCR Specimen Description FECES Special Requests NONE C. Difficile Toxin B PCR NEGATIVE-wait 7 days to repeat test Report Status FINAL 05/06/2017 Specimen Performing Laboratory Feces MAIN LAB [address] [place] [address] * BASIC METABOLIC PANEL (05/06/2017 5:17 AM) Only the most recent of 7 results within the time period is included. Component Value Ref Range Sodium 133 (L) 137 - 147 MMOL/L Potassium 4.1 3.5 - 5.1 MMOL/L Chloride 108 98 - 110 MMOL/L CO2 20 (L) 21 - 30 MMOL/L Anion Gap 5 3 - 12 Glucose 128 (H) 70 - 100 MG/DL Blood Urea Nitrogen 12 7 - 25 MG/DL Creatinine 0.96 0.4 - 1.00 MG/DL Calcium 9.8 8.5 - 10.6 MG/DL eGFR Non 59 (L) >60 mL/min Comment: The eGFR is not validated for use in drug dosing adjustments. Continue to use estimated creatinine clearance per dosing reference text. Please contact the Clinical Pharmacist for questions. eGFR >60 >60 mL/min Comment: The eGFR is not validated for use in drug dosing adjustments. Continue to use estimated creatinine clearance per dosing reference text. Please contact the Clinical Pharmacist for questions. Specimen Performing Laboratory Blood MAIN LAB [address] [place] [address] * ECG UNCONFIRMED-SCAN (05/04/2017 1:31 PM) Narrative Ordered by an unspecified provider. * ECG UNCONFIRMED-SCAN (05/04/2017 1:31 PM) Narrative Ordered by an unspecified provider. * PHOSPHORUS (05/04/2017 6:46 AM) Component Value Ref Range Phosphorus 3.9 2.0 - 4.0 MG/DL Specimen Performing Laboratory Blood MAIN LAB [address] [place] [address] * CULTURE-FUNGAL,OTHER (05/03/2017 3:08 PM) Only the most recent of 2 results within the time period is included. Component Value Ref Range Battery Name FUNGUS CULTURE Specimen Description TISSUE LEFT MAXILLARY SINUS Special Requests NONE Culture NO GROWTH OF FUNGUS AT 4 WEEKS Report Status FINAL 06/07/2017 Specimen Performing Laboratory Tissue - Sinus MAIN LAB [address] [place] [address] * GRAM STAIN (05/03/2017 3:08 PM) Only the most recent of 3 results within the time period is included. Component Value Ref Range Battery Name GRAM STAIN Specimen Description TISSUE LEFT MAXILLARY SINUS Special Requests NONE Gram Stain NO NEUTROPHILS SEEN FEW COLUMNAR EPITHELIAL CELLS NO ORGANISMS SEEN Report Status FINAL 05/03/2017 Specimen Performing Laboratory Tissue - Sinus MAIN LAB [address] [place] [address] * CULTURE-TB (AFB) (05/03/2017 3:08 PM) Only the most recent of 2 results within the time period is included. Component Value Ref Range Battery Name AFB CULTURE Specimen Description TISSUE LEFT MAXILLARY SINUS Special Requests NONE Culture NO GROWTH OF MYCOBACTERIA AT 6 WEEKS Report Status FINAL 06/21/2017 Specimen Performing Laboratory Tissue MAIN LAB [address] [place] [address] * CULTURE-ANAEROBIC (05/03/2017 3:08 PM) Only the most recent of 2 results within the time period is included. Component Value Ref Range Battery Name ANAEROBE CULTURE Specimen Description TISSUE LEFT MAXILLARY SINUS Special Requests NONE Culture NO ANAEROBES ISOLATED Report Status FINAL 05/08/2017 Specimen Performing Laboratory Tissue - Sinus MAIN LAB [address] [place] [address] * TYPE & CROSSMATCH (05/03/2017 11:55 AM) Component Value Ref Range Units Ordered 2 Crossmatch Expires 05/06/2017 Record Check FOUND ABO/RH(D) O POS Antibody Screen NEG Patient has a history of a clinically significant antibody. Unit Number [id number] Blood Component Type RBC,ADSOL,LEUKO REDUCED,IRRADIATED,1ST CONT. Unit Division 0 Status OF Unit REL FROM ALLOC Transfusion Status OK TO TRANSFUSE Crossmatch Result COMPATIBLE, GEL Antigen Type (Units) Jk(a) antigen NEG, Unit Number [id number] Blood Component Type RBC,ADSOL,LEUKO REDUCED,IRRADIATED Unit Division 0 Status OF Unit REL FROM ALLOC Transfusion Status OK TO TRANSFUSE Crossmatch Result COMPATIBLE, GEL Antigen Type (Units) Jk(a) antigen NEG, Unit Number [id number] Blood Component Type RBC,ADSOL,LEUKO REDUCED,IRRADIATED Unit Division 0 Status OF Unit REL FROM ALLOC Transfusion Status DO NOT ISSUE FOR TRANSFUSION Crossmatch Result NOT DONE Antigen Type (Units) Jk(a) antigen POS, Unit Number [id number] Blood Component Type RBC,ADSOL,LEUKO REDUCED,IRRADIATED Unit Division 0 Status OF Unit REL FROM ALLOC Transfusion Status DO NOT ISSUE FOR TRANSFUSION Crossmatch Result NOT DONE Antigen Type (Units) Jk(a) antigen POS, Unit Number [id number] Blood Component Type RBC,ADSOL,LEUKO REDUCED,IRRADIATED Unit Division 0 Status OF Unit REL FROM ALLOC Transfusion Status DO NOT ISSUE FOR TRANSFUSION Crossmatch Result NOT DONE Antigen Type (Units) Jk(a) antigen POS, Unit Number [id number] Blood Component Type RBC,ADSOL,LEUKO REDUCED,IRRADIATED Unit Division 0 Status OF Unit REL FROM ALLOC Transfusion Status DO NOT ISSUE FOR TRANSFUSION Crossmatch Result NOT DONE Antigen Type (Units) Jk(a) antigen POS, Unit Number [id number] Blood Component Type RBC,ADSOL,LEUKO REDUCED,IRRADIATED Unit Division 0 Status OF Unit REL FROM ALLOC Transfusion Status DO NOT ISSUE FOR TRANSFUSION Crossmatch Result NOT DONE Antigen Type (Units) Jk(a) antigen POS, Unit Number [id number] Blood Component Type RBC,ADSOL,LEUKO REDUCED,IRRADIATED Unit Division 0 Status OF Unit REL FROM ALLOC Transfusion Status DO NOT ISSUE FOR TRANSFUSION Crossmatch Result NOT DONE Antigen Type (Units) Jk(a) antigen POS, Specimen Performing Laboratory Blood MAIN LAB [address] [place] [address] * PTT (APTT) (05/03/2017 9:24 AM) Component Value Ref Range APTT 28.7 24.0 - 40.0 SEC Specimen Performing Laboratory Blood MAIN LAB [address] [place] [address] * PROTIME INR (PT) (05/03/2017 9:24 AM) Component Value Ref Range INR 1.0 0.8 - 1.2 Specimen Performing Laboratory Blood MAIN LAB [address] [place] [address] * IR LUMBAR PUNCTURE (05/03/2017 8:37 AM) Specimen Performing Laboratory [facility] RESULTS Impressions 1. Fluoroscopic guided lumbar puncture, as described. 2. 12 ml of CSF collected. IDariel M.D, the attending radiologist, was present for the critical and omalley portions of the procedure with a midlevel, resident, and/or fellow participating.Overlapping portions were non omalley and I was immediately available.I interpret the critical and omalley portion of this procedure to have been needle access. @TT Approved by Seth Loza MD on 05/03/2017 9:44 AM By my electronic signature, I attest that I have personally reviewed the images for this examination and formulated the interpretations and opinions expressed in this report Finalized by DARIEL MCGREGOR on 05/03/2017 9:57 AM. Dictated by Seth Loza MD on 05/03/2017 9:42 AM. Narrative Fluoroscopic guided lumbar puncture Clinical History: Right cerebellar lesion, concern for leukemia versus infection SERVICES DELIVERY DRIVER: Janny Stubbs MD Total fluoroscopy dose: 4 mGy. Medications: 5 mL 2% lidocaine without epinephrine. Technique and Findings: After the procedure was explained, including the potential risk, benefits, and alternatives, both informed written/verbal consent and a brief history were obtained. The patient was brought to the fluoroscopy suite and placed on the examination table in a prone position. The lower back was then prepped and draped in the usual standard sterile fashion. 2% lidocaine was used for local anesthesia. Utilizing fluoroscopy guidance, a 20 gauge spinal needle was advanced into the intrathecal sac at the level of L4-5. Position was confirmed by return of cerebral spinal fluid, which was clear.Next, approximately 12 ml of cerebral spinal fluid was collected and sent to the laboratory for requested laboratory studies. The inner stylet was replaced and the needle was then removed and adequate hemostasis was achieved. The patient tolerated procedure without complications and left the department in stable condition after appropriate monitoring. Procedure Note Interface, Radiant Results - 05/03/2017 10:00 AM CDT Fluoroscopic guided lumbar puncture Clinical History: Right cerebellar lesion, concern for leukemia versus infection SERVICES DELIVERY DRIVER: Jericho Loza M.D. and DARIEL MCGREGOR MD Total fluoroscopy dose: 4 mGy. Medications: 5 mL 2% lidocaine without epinephrine. Technique and Findings: After the procedure was explained, including the potential risk, benefits, and alternatives, both informed written/verbal consent and a brief history were obtained. The patient was brought to the fluoroscopy suite and placed on the examination table in a prone position. The lower back was then prepped and draped in the usual standard sterile fashion. 2% lidocaine was used for local anesthesia. Utilizing fluoroscopy guidance, a 20 gauge spinal needle was advanced into the intrathecal sac at the level of L4-5. Position was confirmed by return of cerebral spinal fluid, which was clear. Next, approximately 12 ml of cerebral spinal fluid was collected and sent to the laboratory for requested laboratory studies. The inner stylet was replaced and the needle was then removed and adequate hemostasis was achieved. The patient tolerated procedure without complications and left the department in stable condition after appropriate monitoring. IMPRESSION 1. Fluoroscopic guided lumbar puncture, as described. 2. 12 ml of CSF collected. I, Dariel Mcgregor M.D, the attending radiologist, was present for the critical and omalley portions of the procedure with a midlevel, resident, and/or fellow participating. Overlapping portions were non omalley and I was immediately available. I interpret the critical and omalley portion of this procedure to have been needle access. @TT Approved by Seth Loza MD on 05/03/2017 9:44 AM By my electronic signature, I attest that I have personally reviewed the images for this examination and formulated the interpretations and opinions expressed in this report Finalized by DARIEL MCGREGOR on 05/03/2017 9:57 AM. Dictated by Seth Loza MD on 05/03/2017 9:42 AM. * CSF TUBE VOLUMES (05/03/2017 8:29 AM) Component Value Ref Range CSF Tube 1 3.0 mL CSF Tube 2 3.0 mL CSF Tube 3 3.0 mL CSF Tube 4 3.0 mL Specimen Performing Laboratory [facility] RESULTS * CULTURE-FUNGAL,CSF (05/03/2017 8:29 AM) Component Value Ref Range Battery Name CSF FUNGUS CULTURE Specimen Description CSF Special Requests NONE Culture NO GROWTH OF FUNGUS AT 4 WEEKS Report Status FINAL 06/07/2017 Specimen Performing Laboratory Cerebrospinal fluid - MAIN LAB Cerebrospinal Fluid [address] [place] [address] * CULTURE-CSF W/SENSITIVITY (05/03/2017 8:29 AM) Component Value Ref Range Battery Name CSF CULTURE Specimen Description CSF Special Requests NONE Direct Gram Stain RARE NEUTROPHILS MODERATE RBC'S NO ORGANISMS SEEN Culture NO GROWTH 3 DAYS Report Status FINAL 05/06/2017 Specimen Performing Laboratory Cerebrospinal fluid - MAIN LAB Cerebrospinal Fluid [address] [place] [address] * HISTOPLASMA-CSF (05/03/2017 8:29 AM) Component Value Ref Range Histoplasma Mycelial Negative TITER (CSF) Comment: Reference range: Negative Unit: not reported [facility], [address] [place] [address] Histoplasma Yeast (CSF) Negative Reference range: Negative [facility] [employer], [address] [place], [place] [id number] Histoplasma Negative Immunodiffusion (CSF) Reference range: Negative A negative complement fixation and immunodiffusion (CF/ID) result does not exclude the diagnosis of histoplasmosis. [facility], [address] [place], [place] [phone] Specimen Performing Laboratory Cerebrospinal fluid - REFERENCE LAB Cerebrospinal Fluid * CELL COUNT W/DIFF-CSF (05/03/2017 8:29 AM) Component Value Ref Range Cell Count Tube,CSF TUBE 4 White Blood Cells,CSF 6 (H) <5 /UL Red Blood Cells,CSF 685 /UL Lymphocytes, CSF 93 % Monocyte/Hisotocyte, CSF 7 % Clarity,CSF SLT BLOODY Path Interpretation, CSF NEGATIVE FOR MALIGNANT CELLS CYTOPATHOLOGY CORRELATION RECOMMENDED Pathologist Signature INTERPRETED BY LINDSEY MORENO M.D. By the PATH SIGNATURE ABOVE, I attest that I have personally formulated the final interpretation expressed in this report and that the above diagnosis is based upon my examination of the slides and/or other material indicated in this report. Specimen Performing Laboratory Cerebrospinal fluid - MAIN LAB Cerebrospinal Fluid [address] [place] [address] * TOTAL PROTEIN-CSF (05/03/2017 8:29 AM) Component Value Ref Range Total Protein,CSF 52 (H) 15 - 45 MG/DL Specimen Performing Laboratory Cerebrospinal fluid - MAIN LAB Cerebrospinal Fluid [address] [place] [address] * GLUCOSE-CSF (05/03/2017 8:29 AM) Component Value Ref Range Glucose,CSF 58 40 - 75 MG/DL Xanthrochromia,CSF SMALL BLOOD PRESENT Specimen Performing Laboratory Cerebrospinal fluid - MAIN LAB Cerebrospinal Fluid [address] [place] [address] * NON-CENTRAL SUPPLY NURSE CYTOLOGY (BODY FLUIDS/TISSUE) (05/03/2017 8:27 AM) Component Value Ref Range Cytology [facility] [email or web address] Tricia Jerry MD, Director Cytopathology Department of Pathology and Laboratory Medicine [address] [place] [id number] Surgical Pathology Office: [phone] CYTOLOGY REPORT NAME: DONNA PITTS CYTOLOGY #: [id number] MR #: [id number] ALT ID #: BILLING #: [id number] LOCATION: 41 DATE OF PROCEDURE: 05/03/2017 AGE: 61 SEX: F DATE RECEIVED: 05/04/2017 : 1955 TIME RECEIVED: 08:27 PHYSICIAN: VIPIN CASTELLANO DATE OF REPORT: 05/06/2017 COPY TO: EDWARD BELCHER BAKARI DATE OF PRINTIN05/06/2017 Material Received: A: Cerebrospinal Fluid History: 61 year old female with 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 Gross Description: (1tp) 1.75 mL clear light yellow fluid. ################################################## ###################### Final Diagnosis: A. Cerebrospinal Fluid: Mild lymphocytosis. Negative for malignant cells. Please also see concurrent flow cytometry report ([id number]), which demonstrates an negative immunophenotypic study. Attestation: By this signature, I attest that I have personally formulated the final interpretation expressed in this report and that the above diagnosis is based upon my examination of the slides and/or other material indicated in this report. +++Electronically Signed Out By+++ pl/05/05/2017 Interpreted by: PHILIPPE Weinstein MD, PhD Fellow Specimen Performing Laboratory [facility] RESULTS * T SPOT TB (05/03/2017 5:10 AM) Component Value Ref Range T Spot TB Negative The test result is Negative because the spot count in (Panel A minus Nil Control) and (Panel B minus Nil Control) is less than or equal to 4. This includes values less than zero.[id number]: Diagnosing or excluding tuberculosis disease, and assessing the probability of LTBI, requires a combination of epidemiological, historical, medical and diagnostic findings that should be taken into account when interpreting T-SPOT.TB test results. Refer to the most recent CDC guidance (http://www.cdc.gov/tb/publications/guidelines/def chilo.htm) for detailed recommendations on diagnosing TB infection (including disease) and selecting persons for testing. Guidelines set forth by the Centers of Disease Control and Prevention (CDC) recommend contacts of a person with tuberculosis (TB) disease who have a negative initial interferon-gamma release assay (IGRA) or TST within 8 weeks of exposure be retested 8 - 10 weeks after last exposure. [id number] Neg Control TB Spot Count 0 Panel A TB Spot Count 2 Panel B TB Spot Count 0 Pos Control TB Spot Count >20 Specimen Performing Laboratory Blood REFERENCE LAB * CULTURE-FUNGAL,BLOOD W/SENSITIVITY (05/03/2017 5:10 AM) Component Value Ref Range Battery Name FUNGUS BLOOD CULTURE Specimen Description BLOOD LEFT ANTECUBITAL Special Requests NONE Culture NO GROWTH OF FUNGUS AT 4 WEEKS Report Status FINAL 06/07/2017 Specimen Performing Laboratory Blood MAIN LAB [address] [place] [address] * CULTURE-BLOOD W/SENSITIVITY (05/02/2017 5:00 PM) Component Value Ref Range Battery Name BLOOD CULTURE Specimen Description BLOOD LEFT FA Special Requests NONE Culture NO GROWTH 5 DAYS Report Status FINAL 05/08/2017 Specimen Performing Laboratory Blood MAIN LAB [address] [place] [address] * HISTOPLASMA AG, SERUM (05/01/2017 4:12 PM) Component Value Ref Range Result, Histoplasma None Detected AG,Serum Unit: ng/mL Comment, Histoplasma Negative AG,Serum ADDITIONAL INFORMATION Reference interval: None Detected Results reported as ng/mL in 0.4 - 19 ng/mL range Results above the limit of detection but below 0.4 ng/mL are reported as 'Positive, Below the Limit of Quantification' Results above 19.0 ng/mL are reported as 'Positive, Above the Limit of Quantification' This test was developed and its performance characteristics determined by [facility]. It has not been cleared or approved by the FDA; however, FDA clearance or approval is not currently required for clinical use. The results are not intended to be used as the sole means for clinical diagnosis or patient management decisions. Test Performed by: [facility] [address] [place] [address] Specimen Performing Laboratory Blood REFERENCE LAB * FUNGITELL (05/01/2017 4:12 PM) Component Value Ref Range Fungitell <31 Reference range: <80 Unit: pg/mL Interpretation: The Fungitell assay does not detect certain fungal species such as the genus Cryptococcus (Lidia et al. 1991) which produces very low levels of (1-3)-Oynl-O-Xuhxgu. The assay also does not detect the Zygomycetes such as Absidia, Mucor and Rhizopus (Hilary et al. 1994) which are not known to produce (1-3)-Rqbb-T-Vkzmqx. In addition, the yeast phase of Blastomyces dermatitidis produces little (1-3)-Ygvm-F-Wxiqke and may not be detected by the [...] from samples provided in pour-off tubes with caution. Results should be used in conjunction with clinical findings, and should not form the sole basis for a diagnosis or treatment decision. The Fungitell test is approved or cleared for in vitro diagnostic use by the U.S Food and Drug Administration. Modifications to the approved package insert have been made and the performance characteristics for these modifications were determined by [facility]. If sample result is greater than 500 pg/mL, physician may order a titer of the sample. Please contact [facility] if you would like to order a retest of this sample to obtain an actual value. Samples are held for 1 week after initial testing date. Testing Performed At: [facility] [address] [place] [id number] CLIA ID: [id number] Specimen Performing Laboratory Blood REFERENCE LAB * TOXOPLASMA IGG (05/01/2017 4:12 PM) Component Value Ref Range Toxoplasma IgG POS Specimen Performing Laboratory [facility] MAIN LAB [address] [place] [address] * CRYPTOCOCCUS ANTIGEN (05/01/2017 4:12 PM) Component Value Ref Range Cryptococcal AG Screen NEG NEG-NEG Specimen Performing Laboratory Blood MAIN LAB [address] [place] [address] * ASPERGILLUS (GALACTOMANNAN) AG (05/01/2017 4:12 PM) Component Value Ref Range Aspergillus Galactomann 0.039 AG Comment: Reference Value: Index value less than 0.5.- [...] Aspergillus Galactomannan EIA is a product of [employer] and is FDA approved for in vitro diagnostic use. Testing Performed At: [facility] [address] [place] [address] [facility] [place] [id number] CLIA ID: [id number] Specimen Performing Laboratory Blood REFERENCE LAB * CT ABD/PELV W CONTRAST (05/01/2017 3:05 PM) Specimen Performing Laboratory [facility] RESULTS Impressions CHEST: 1. Mild cardiomegaly, borderline vascular congestion patchy groundglass opacity suggesting volume overload.Atypical infectious etiology considered less likely. 2. Calcified coronary artery atherosclerosis right disease ABDOMEN AND PELVIS: 1. Interval ORIF of left intertrochanteric and trochanteric fractures with persistent surrounding soft tissue stranding. 2. Mild splenomegaly. 3. Persistent trace dependent pelvic ascites. By my electronic signature, I attest that I have personally reviewed the images for this examination and formulated the interpretations and opinions expressed in this report Finalized by Abiodun Samuel M.D. on 05/01/2017 8:14 PM. Dictated by Vishal Richter M.D. on 05/01/2017 6:[address] CHEST, ABDOMEN AND PELVIS Clinical Indication:Female, 61 years old. History of bone marrow transplant. New brain lesion. Technique: Multiple contiguous axial images were obtained through the chest, abdomen and pelvis following the administration of IV contrast material. Portal venous phase of postcontrast imaging was obtained. Post processing coronal and sagittal reconstruction images were made from the axial images. IV contrast: Isovue-370 Bowel contrast:None Comparison: CT chest/abdomen/pelvis from April 16, 2017 CHEST FINDINGS: Lower Neck: Redemonstration of tiny calcified left thyroid nodule. Axilla, Mediastinum and Ayanna: No thoracic lymphadenopathy. Heart and Great Vessels: Mild cardiomegaly without significant pericardial effusion. There is at least mild coronary artery calcification. There is calcification of the aortic valve. Thoracic aorta is normal in caliber. Airway, Lungs and Pleura: Central airways patent. There are patchy groundglass opacities throughout both lungs with peripherally predominant groundglass and nodular opacities bilaterally. There are scattered areas of atelectasis/ scarring. Interval development of trace bilateral pleural effusions, right greater than left. No pneumothorax. Chest Wall and Osseous Structures: Healing nondisplaced sternal and rib fractures are again noted. Mild thoracic spondylosis. No destructive osseous lesion. Redemonstration of mild superior endplate compression deformity at T11. ABDOMEN AND PELVIS FINDINGS: Liver and Biliary system: Normal sized liver without focal hepatic lesion. Major portal veins patent. No biliary ductal dilatation. Prior cholecystectomy. Spleen: Mild splenomegaly. Adrenal Glands and Kidneys: Redemonstration of mild nonspecific thickening of bilateral adrenal glands without discrete mass identified. No hydroureteronephrosis. Pancreas and Retroperitoneum: Pancreas is unremarkable. Scattered normal-sized retroperitoneal lymph nodes are noted. Aorta and Major Vessels: Normal caliber abdominal aorta with mild aortoiliac atherosclerotic calcification. Perisplenic and right retroperitoneal varices are noted. Bowel, Mesentery and Peritoneal space: Large and small bowel loops are normal in caliber without obstruction. No mesenteric adenopathy. No abdominal ascites. Normal appendix. Pelvis: Air is seen within the anterior urinary bladder, likely due to recent instrumentation. Mild circumferential bladder wall thickening, likely due to incomplete distention. Anteverted uterus and adnexa are within normal limits for age. Persistent trace dependent pelvic ascites. No pelvic lymphadenopathy. Abdominal wall and Osseous Structures: Small fat-containing umbilical hernia. Soft tissue nodules within the anterior abdominal wall are noted, likely representing injection granulomas. Mild diffuse body wall edema. Interval ORIF of left intertrochanteric fracture and lesser and greater trochanter fractures with moderate surrounding soft tissue stranding. Grade 1 spondylolisthesis at L5 -S1. Mild lumbar spondylosis. Procedure Note Interface, Radiant Results - 05/01/2017 8:[address] CHEST, ABDOMEN AND PELVIS Clinical Indication: Female, 61 years old. History of bone marrow transplant. New brain lesion. Technique: Multiple contiguous axial images were obtained through the chest, abdomen and pelvis following the administration of IV contrast material. Portal venous phase of postcontrast imaging was obtained. Post processing coronal and sagittal reconstruction images were made from the axial images. IV contrast: Isovue-370 Bowel contrast: None Comparison: CT chest/abdomen/pelvis from April 16, 2017 CHEST FINDINGS: Lower Neck: Redemonstration of tiny calcified left thyroid nodule. Axilla, Mediastinum and Ayanna: No thoracic lymphadenopathy. Heart and Great Vessels: Mild cardiomegaly without significant pericardial effusion. There is at least mild coronary artery calcification. There is calcification of the aortic valve. Thoracic aorta is normal in caliber. Airway, Lungs and Pleura: Central airways patent. There are patchy groundglass opacities throughout both lungs with peripherally predominant groundglass and nodular opacities bilaterally. There are scattered areas of atelectasis/ scarring. Interval development of trace bilateral pleural effusions, right greater than left. No pneumothorax. Chest Wall and Osseous Structures: Healing nondisplaced sternal and rib fractures are again noted. Mild thoracic spondylosis. No destructive osseous lesion. Redemonstration of mild superior endplate compression deformity at T11. ABDOMEN AND PELVIS FINDINGS: Liver and Biliary system: Normal sized liver without focal hepatic lesion. Major portal veins patent. No biliary ductal dilatation. Prior cholecystectomy. Spleen: Mild splenomegaly. Adrenal Glands and Kidneys: Redemonstration of mild nonspecific thickening of bilateral adrenal glands without discrete mass identified. No hydroureteronephrosis. Pancreas and Retroperitoneum: Pancreas is unremarkable. Scattered normal-sized retroperitoneal lymph nodes are noted. Aorta and Major Vessels: Normal caliber abdominal aorta with mild aortoiliac atherosclerotic calcification. Perisplenic and right retroperitoneal varices are noted. Bowel, Mesentery and Peritoneal space: Large and small bowel loops are normal in caliber without obstruction. No mesenteric adenopathy. No abdominal ascites. Normal appendix. Pelvis: Air is seen within the anterior urinary bladder, likely due to recent instrumentation. Mild circumferential bladder wall thickening, likely due to incomplete distention. Anteverted uterus and adnexa are within normal limits for age. Persistent trace dependent pelvic ascites. No pelvic lymphadenopathy. Abdominal wall and Osseous Structures: Small fat-containing umbilical hernia. Soft tissue nodules within the anterior abdominal wall are noted, likely representing injection granulomas. Mild diffuse body wall edema. Interval ORIF of left intertrochanteric fracture and lesser and greater trochanter fractures with moderate surrounding soft tissue stranding. Grade 1 spondylolisthesis at L5 -S1. Mild lumbar spondylosis. IMPRESSION CHEST: 1. Mild cardiomegaly, borderline vascular congestion patchy groundglass opacity suggesting volume overload. Atypical infectious etiology considered less likely. 2. Calcified coronary artery atherosclerosis right disease ABDOMEN AND PELVIS: 1. Interval ORIF of left intertrochanteric and trochanteric fractures with persistent surrounding soft tissue stranding. 2. Mild splenomegaly. 3. Persistent trace dependent pelvic ascites. By my electronic signature, I attest that I have personally reviewed the images for this examination and formulated the interpretations and opinions expressed in this report Finalized by Abiodun Samuel M.D. on 05/01/2017 8:14 PM. Dictated by Vishal Richter M.D. on 05/01/2017 6:51 PM. * CT CHEST W CONTRAST (05/01/2017 3:05 PM) Specimen Performing Laboratory [facility] RESULTS Impressions CHEST: 1. Mild cardiomegaly, borderline vascular congestion patchy groundglass opacity suggesting volume overload.Atypical infectious etiology considered less likely. 2. Calcified coronary artery atherosclerosis right disease ABDOMEN AND PELVIS: 1. Interval ORIF of left intertrochanteric and trochanteric fractures with persistent surrounding soft tissue stranding. 2. Mild splenomegaly. 3. Persistent trace dependent pelvic ascites. By my electronic signature, I attest that I have personally reviewed the images for this examination and formulated the interpretations and opinions expressed in this report Finalized by Abiodun Samuel M.D. on 05/01/2017 8:14 PM. Dictated by Vishal Richter M.D. on 05/01/2017 6:[address] CHEST, ABDOMEN AND PELVIS Clinical Indication:Female, 61 years old. History of bone marrow transplant. New brain lesion. Technique: Multiple contiguous axial images were obtained through the chest, abdomen and pelvis following the administration of IV contrast material. Portal venous phase of postcontrast imaging was obtained. Post processing coronal and sagittal reconstruction images were made from the axial images. IV contrast: Isovue-370 Bowel contrast:None Comparison: CT chest/abdomen/pelvis from April 16, 2017 CHEST FINDINGS: Lower Neck: Redemonstration of tiny calcified left thyroid nodule. Axilla, Mediastinum and Ayanna: No thoracic lymphadenopathy. Heart and Great Vessels: Mild cardiomegaly without significant pericardial effusion. There is at least mild coronary artery calcification. There is calcification of the aortic valve. Thoracic aorta is normal in caliber. Airway, Lungs and Pleura: Central airways patent. There are patchy groundglass opacities throughout both lungs with peripherally predominant groundglass and nodular opacities bilaterally. There are scattered areas of atelectasis/ scarring. Interval development of trace bilateral pleural effusions, right greater than left. No pneumothorax. Chest Wall and Osseous Structures: Healing nondisplaced sternal and rib fractures are again noted. Mild thoracic spondylosis. No destructive osseous lesion. Redemonstration of mild superior endplate compression deformity at T11. ABDOMEN AND PELVIS FINDINGS: Liver and Biliary system: Normal sized liver without focal hepatic lesion. Major portal veins patent. No biliary ductal dilatation. Prior cholecystectomy. Spleen: Mild splenomegaly. Adrenal Glands and Kidneys: Redemonstration of mild nonspecific thickening of bilateral adrenal glands without discrete mass identified. No hydroureteronephrosis. Pancreas and Retroperitoneum: Pancreas is unremarkable. Scattered normal-sized retroperitoneal lymph nodes are noted. Aorta and Major Vessels: Normal caliber abdominal aorta with mild aortoiliac atherosclerotic calcification. Perisplenic and right retroperitoneal varices are noted. Bowel, Mesentery and Peritoneal space: Large and small bowel loops are normal in caliber without obstruction. No mesenteric adenopathy. No abdominal ascites. Normal appendix. Pelvis: Air is seen within the anterior urinary bladder, likely due to recent instrumentation. Mild circumferential bladder wall thickening, likely due to incomplete distention. Anteverted uterus and adnexa are within normal limits for age. Persistent trace dependent pelvic ascites. No pelvic lymphadenopathy. Abdominal wall and Osseous Structures: Small fat-containing umbilical hernia. Soft tissue nodules within the anterior abdominal wall are noted, likely representing injection granulomas. Mild diffuse body wall edema. Interval ORIF of left intertrochanteric fracture and lesser and greater trochanter fractures with moderate surrounding soft tissue stranding. Grade 1 spondylolisthesis at L5 -S1. Mild lumbar spondylosis. Procedure Note Interface, Radiant Results - 05/01/2017 8:[address] CHEST, ABDOMEN AND PELVIS Clinical Indication: Female, 61 years old. History of bone marrow transplant. New brain lesion. Technique: Multiple contiguous axial images were obtained through the chest, abdomen and pelvis following the administration of IV contrast material. Portal venous phase of postcontrast imaging was obtained. Post processing coronal and sagittal reconstruction images were made from the axial images. IV contrast: Isovue-370 Bowel contrast: None Comparison: CT chest/abdomen/pelvis from April 16, 2017 CHEST FINDINGS: Lower Neck: Redemonstration of tiny calcified left thyroid nodule. Axilla, Mediastinum and Ayanna: No thoracic lymphadenopathy. Heart and Great Vessels: Mild cardiomegaly without significant pericardial effusion. There is at least mild coronary artery calcification. There is calcification of the aortic valve. Thoracic aorta is normal in caliber. Airway, Lungs and Pleura: Central airways patent. There are patchy groundglass opacities throughout both lungs with peripherally predominant groundglass and nodular opacities bilaterally. There are scattered areas of atelectasis/ scarring. Interval development of trace bilateral pleural effusions, right greater than left. No pneumothorax. Chest Wall and Osseous Structures: Healing nondisplaced sternal and rib fractures are again noted. Mild thoracic spondylosis. No destructive osseous lesion. Redemonstration of mild superior endplate compression deformity at T11. ABDOMEN AND PELVIS FINDINGS: Liver and Biliary system: Normal sized liver without focal hepatic lesion. Major portal veins patent. No biliary ductal dilatation. Prior cholecystectomy. Spleen: Mild splenomegaly. Adrenal Glands and Kidneys: Redemonstration of mild nonspecific thickening of bilateral adrenal glands without discrete mass identified. No hydroureteronephrosis. Pancreas and Retroperitoneum: Pancreas is unremarkable. Scattered normal-sized retroperitoneal lymph nodes are noted. Aorta and Major Vessels: Normal caliber abdominal aorta with mild aortoiliac atherosclerotic calcification. Perisplenic and right retroperitoneal varices are noted. Bowel, Mesentery and Peritoneal space: Large and small bowel loops are normal in caliber without obstruction. No mesenteric adenopathy. No abdominal ascites. Normal appendix. Pelvis: Air is seen within the anterior urinary bladder, likely due to recent instrumentation. Mild circumferential bladder wall thickening, likely due to incomplete distention. Anteverted uterus and adnexa are within normal limits for age. Persistent trace dependent pelvic ascites. No pelvic lymphadenopathy. Abdominal wall and Osseous Structures: Small fat-containing umbilical hernia. Soft tissue nodules within the anterior abdominal wall are noted, likely representing injection granulomas. Mild diffuse body wall edema. Interval ORIF of left intertrochanteric fracture and lesser and greater trochanter fractures with moderate surrounding soft tissue stranding. Grade 1 spondylolisthesis at L5 -S1. Mild lumbar spondylosis. IMPRESSION CHEST: 1. Mild cardiomegaly, borderline vascular congestion patchy groundglass opacity suggesting volume overload. Atypical infectious etiology considered less likely. 2. Calcified coronary artery atherosclerosis right disease ABDOMEN AND PELVIS: 1. Interval ORIF of left intertrochanteric and trochanteric fractures with persistent surrounding soft tissue stranding. 2. Mild splenomegaly. 3. Persistent trace dependent pelvic ascites. By my electronic signature, I attest that I have personally reviewed the images for this examination and formulated the interpretations and opinions expressed in this report Finalized by Abiodun Samuel M.D. on 05/01/2017 8:14 PM. Dictated by Vishal Richter M.D. on 05/01/2017 6:51 PM. * CT MAXIFACIAL/SINUS W CONTRAST (05/01/2017 3:05 PM) Specimen Performing Laboratory [facility] RESULTS Impressions 1. Right mastoiditis. 2. Mild maxillary sinus disease greater on the left. 3. Small periapical abscess involving left maxillary premolar. 4. Stable enhancing right cerebellar lesion. By my electronic signature, I attest that I have personally reviewed the images for this examination and formulated the interpretations and opinions expressed in this report Finalized by Abiodun Samuel M.D. on 05/01/2017 8:18 PM. Dictated by Vishal Richter M.D. on 05/01/2017 7:44 PM. Narrative EXAM: CT MAXILLOFACIAL HISTORY: , New brain lesion in HSCT pt, TECHNIQUE:Multiple contiguous axial images were obtained through the maxillofacial region following the administration of IV contrast. Coronal reformatted images were obtained. COMPARISON: None FINDINGS: Dr. Abiodun Samuel M.D. has personally reviewed these images and formulated the interpretations and opinions expressed in this report. The visualized intracranial structures, globes, and orbits are unremarkable. Frontal sinuses and recesses are clear. The ethmoid air cells, sphenoid sinuses , sphenoid sinus ostia, and sphenoethmoidal recesses are patent. There is polypoid mucosal thickening in the maxillary sinuses greater on the left. There are several missing teeth small periapical lucency involving left maxillary premolar. There is fluid opacifying the majority of the right mastoid air cells. Small enhancing right cerebellar lesion skin noted. Stable from 2 days earlier. No areas of osseous destruction or bony dehiscence are identified.The nasal cavity is unremarkable. No abnormal enhancing lesion is identified. Procedure Note Interface, Radiant Results - 05/01/2017 8:21 PM CDT EXAM: CT MAXILLOFACIAL HISTORY: , New brain lesion in HSCT pt, TECHNIQUE: Multiple contiguous axial images were obtained through the maxillofacial region following the administration of IV contrast. Coronal reformatted images were obtained. COMPARISON: None FINDINGS: Dr. Abiodun Samuel M.D. has personally reviewed these images and formulated the interpretations and opinions expressed in this report. The visualized intracranial structures, globes, and orbits are unremarkable. Frontal sinuses and recesses are clear. The ethmoid air cells, sphenoid sinuses , sphenoid sinus ostia, and sphenoethmoidal recesses are patent. There is polypoid mucosal thickening in the maxillary sinuses greater on the left. There are several missing teeth small periapical lucency involving left maxillary premolar. There is fluid opacifying the majority of the right mastoid air cells. Small enhancing right cerebellar lesion skin noted. Stable from 2 days earlier. No areas of osseous destruction or bony dehiscence are identified. The nasal cavity is unremarkable. No abnormal enhancing lesion is identified. IMPRESSION 1. Right mastoiditis. 2. Mild maxillary sinus disease greater on the left. 3. Small periapical abscess involving left maxillary premolar. 4. Stable enhancing right cerebellar lesion. By my electronic signature, I attest that I have personally reviewed the images for this examination and formulated the interpretations and opinions expressed in this report Finalized by Abiodun Samuel M.D. on 05/01/2017 8:18 PM. Dictated by Vishal Richter M.D. on 05/01/2017 7:44 PM. * CBC (04/30/2017 8:00 AM) Only the most recent of 2 results within the time period is included. Component Value Ref Range White Blood Cells 4.7 4.5 - 11.0 K/UL RBC 2.15 (L) 4.0 - 5.0 M/UL Hemoglobin 7.5 (L) 12.0 - 15.0 GM/DL Hematocrit 22.1 (L) 36 - 45 % MCV 102.6 (H) 80 - 100 FL MCH 34.9 (H) 26 - 34 PG MCHC 34.0 32.0 - 36.0 G/DL RDW 19.2 (H) 11 - 15 % Platelet Count 83 (L) 150 - 400 K/UL MPV 7.1 7 - 11 FL Specimen Performing Laboratory Blood [facility] [address] [place] [address] * MRI L-SPINE WO/W CONTRAST (04/29/2017 7:46 PM) Specimen Performing Laboratory [facility] RESULTS Impressions 1.Moderate disc degeneration at L3-L4 and L5-S1 and kola-dc-zumwoiew L4-L5 disc degeneration. 2.No evidence of central spinal stenosis or lateral recess stenosis. No significant neural foraminal stenosis. 3.No abnormal areas of contrast enhancement. Finalized by Vladimir Crenshaw M.D. on 04/30/2017 8:12 AM. Dictated by Vladimir Crenshaw M.D. on 04/30/2017 7:44 AM. Narrative MRI lumbar spine without and with contrast. HISTORY: Back pain. TECHNIQUE: Sagittal T1-weighted, T2-weighted, STIR images were acquired through the lumbar spine. Axial T1 and T2-weighted images were part lumbar spine. Post intravenous contrast axial T1-weighted and sagittal fat-suppressed T1-weighted images were obtained of the lumbar spine. Correlating with prior CT scan of April 16, 2017. There is normal alignment of lumbar spine. Disc degeneration of moderate degree at L3-L4 and L5-S1 and mvec-ee-meyesncj degree at L4-L5.. Suspected small posterior annular fissure at L5-S1. There are no osseous lesions. Minor focal degenerative changes of the endplates adjacent to the posterior aspect of the L3 -L4 discs.. The conus medullaris is normal and terminates at the caudal L2 level. The central spinal canal, lateral recesses and neural foramen are patent at T11- T12, T12-L1, L1-L2 and L2-L3 levels. L3-L4: Small bulging or protruding disc without central spinal stenosis or lateral recess stenosis. The bilateral neural foramen are patent. There is mild facet osteoarthritis. L4-L5: Small central extruded disc without central spinal stenosis or lateral recess stenosis. Mild narrowing the left neural foramen. The right neural foramen is patent. Mild facet osteoarthritis. L5-S1: Normal central spinal canal and lateral recesses. Ogtx-qi-yhyzhdeq left neural foraminal stenosis from a disc osteophyte complex. The right neural foramen is patent. Mild to moderate facet osteoarthritis. Postcontrast images show no abnormal areas of contrast enhancement. The visible portions of the bilateral kidneys and the abdominal aorta are unremarkable. Procedure Note Interface, Radiant Results - 04/30/2017 8:15 AM CDT MRI lumbar spine without and with contrast. HISTORY: Back pain. TECHNIQUE: Sagittal T1-weighted, T2-weighted, STIR images were acquired through the lumbar spine. Axial T1 and T2-weighted images were part lumbar spine. Post intravenous contrast axial T1-weighted and sagittal fat-suppressed T1-weighted images were obtained of the lumbar spine. Correlating with prior CT scan of April 16, 2017. There is normal alignment of lumbar spine. Disc degeneration of moderate degree at L3-L4 and L5-S1 and gdfi-ff-ldzzqthe degree at L4-L5.. Suspected small posterior annular fissure at L5-S1. There are no osseous lesions. Minor focal degenerative changes of the endplates adjacent to the posterior aspect of the L3 -L4 discs.. The conus medullaris is normal and terminates at the caudal L2 level. The central spinal canal, lateral recesses and neural foramen are patent at T11- T12, T12-L1, L1-L2 and L2-L3 levels. L3-L4: Small bulging or protruding disc without central spinal stenosis or lateral recess stenosis. The bilateral neural foramen are patent. There is mild facet osteoarthritis. L4-L5: Small central extruded disc without central spinal stenosis or lateral recess stenosis. Mild narrowing the left neural foramen. The right neural foramen is patent. Mild facet osteoarthritis. L5-S1: Normal central spinal canal and lateral recesses. Hhwk-ja-yxlielzi left neural foraminal stenosis from a disc osteophyte complex. The right neural foramen is patent. Mild to moderate facet osteoarthritis. Postcontrast images show no abnormal areas of contrast enhancement. The visible portions of the bilateral kidneys and the abdominal aorta are unremarkable. IMPRESSION 1. Moderate disc degeneration at L3-L4 and L5-S1 and iukx-ir-huojmbtd L4-L5 disc degeneration. 2. No evidence of central spinal stenosis or lateral recess stenosis. No significant neural foraminal stenosis. 3. No abnormal areas of contrast enhancement. Finalized by Vladimir Crenshaw M.D. on 04/30/2017 8:12 AM. Dictated by Vladimir Crenshaw M.D. on 04/30/2017 7:44 AM. * TELEMETRY STRIPS-SCAN (04/29/2017 2:02 PM) Narrative Ordered by an unspecified provider. * HEMOGLOBIN A1C (04/29/2017 7:35 AM) Component Value Ref Range Hemoglobin A1C 5.5 4.0 - 6.0 % Comment: The ADA recommends that most patients with type 1 and type 2 diabetes maintain an A1c level <7%. Specimen Performing Laboratory Blood [facility] [address] [place] [id number] * LIPID PROFILE (04/29/2017 7:35 AM) Component Value Ref Range Cholesterol 127 <200 MG/DL Triglycerides 204 (H) <150 MG/DL HDL 27 (L) >40 MG/DL LDL 62 <100 MG/DL VLDL 41 MG/DL Non HDL Cholesterol 100 MG/DL Comment: Calculated non-HDL Cholesterol (non-HDL-C) indirectly measures LDL-C, Lp(a), IDL-C, and VLDL-C. It is a surrogate marker for Apoprotein B. Non-HDL-C is a more accurate measure of atherogenic particle concentration than LDL-C in patients with hypertriglyceridemia (>200 mg/dL). This calculation is now recommended for evaluation and treatment of coronary heart disease according to the National Cholesterol Education Program Adult Treatment Protocol-III. See Villatoro et al. Am J. Cardiol. 2008, 101:4506-3623. The "goal" should be less than 130 mg/dL, but will vary according to risk factors. Specimen Performing Laboratory Blood [facility] [address] [place] [address] from Last 3 Months
--- OUTSIDE RECORDS SUMMARY | 2017-07-30 03:53 | XMS REPORT | Encounter Summary ---
Author Author [facility] Organization [facility] Address Unknown Phone Unavailable Care Team Providers Care Complex Commercial Litigation Paralegal Name Role Phone PCP Unavailable Encounter Details Date Type Department Care Team Description 07/28/2017 [facility] Annalee Virk MD Encounter Cancer Center - BMT [address] [facility] [address] Treatment [address] [place], [place] [address] [place] [address] [phone] Social History Tobacco Use Types Packs/Day Years Used Date Never Smoker Smokeless Tobacco: Never Used Alcohol Use Drinks/Week oz/Week Comments No 0 Standard 0.0 drinks or equivalent Sex Assigned at Date Recorded Not on file as of this encounter Functional Status Functional Status Response Date of Assessment Does the patient have a hearing impairment: No 05/06/2017 Does the patient have a visual impairment: No 05/06/2017 Does the patient have impaired ambulation: Yes 05/06/2017 Does the patient have an activity of daily living Yes 05/06/2017 (ADL) impairment: Does the patient have an instrumental activity of No 05/06/2017 daily living (IADL) impairment: Cognitive Status Response Date of Assessment Does the patient have a cognitive impairment: No 05/06/2017 as of this encounter Plan of Treatment Date Type Specialty Care Team Description 06/28/2017 Procedure Pass Infectious Diseases as of this encounter Visit Diagnoses Not on filein this encounter
--- OUTSIDE RECORDS SUMMARY | 2017-07-30 03:53 | XMS REPORT | Encounter Summary ---
Author Author [facility] Organization [facility] Address Unknown Phone Unavailable Care Team Providers Care Embossing Clerk Name Role Phone PCP Unavailable Encounter Details Date Type Department Care Team Description 07/29/2017 Pharmacy Visit [facility] [address] [place] [address] Social History Tobacco Use Types Packs/Day Years [...]
--- OUTSIDE RECORDS SUMMARY | 2017-07-30 03:53 | XMS REPORT | Encounter Summary ---
Author Author [facility] Organization [facility] Address Unknown Phone Unavailable Care Team Providers Care Deployment Technician Name Role Phone PCP Unavailable Reason for Visit * Reason Comments Heme/Onc Care Encounter Details Date Type Department Care Team Description 07/28/2017 Nurse Only [facility] Annalee Virk MD History of stem cell Cancer Center - BMT Exam [address] transplant (HCC) [address] [place] [address] [place] [id number] [phone] Social History Tobacco Use Types Packs/Day Years [...] Pass Infectious Diseases as of this encounter Results * COMPREHENSIVE METABOLIC PANEL (07/28/2017 2:09 PM) Component Value Ref Range Sodium 137 137 [...] Pharmacist for questions. Specimen Performing Laboratory Blood [facility] [address] [place] [address] * CBC AND DIFF (07/28/2017 2:09 PM) Component Value Ref Range White Blood Cells [...] 7.0 K/UL Manual Specimen Performing Laboratory Blood [facility] [address] [place] [address] in this encounter Visit Diagnoses Diagnosis History of stem cell transplant (HCC) Peripheral stem cells replaced by transplant in this encounter
--- OUTSIDE RECORDS SUMMARY | 2017-07-30 03:53 | XMS REPORT | Encounter Summary ---
Author Author [facility] Organization [facility] Address Unknown Phone Unavailable Care Team Providers Care Custom Shoemaker Name Role Phone PCP Unavailable Encounter Details Date Type Department Care Team Description 06/28/2017 Procedure Pass [facility] Physicians - Internal Medicine 4TH FLOOR POD [address] [place] [address] Social History Tobacco Use Types Packs/Day Years [...]
--- OUTSIDE RECORDS SUMMARY | 2017-07-30 03:53 | XMS REPORT | Encounter Summary ---
Author Author [facility] Organization [facility] Address Unknown Phone Unavailable Care Team Providers Care Sneller Hand Name Role Phone PCP Unavailable Reason for Visit * Reason Comments Heme/Onc Care Encounter Details Date Type Department Care Team Description 07/28/2017 Office Visit [facility] Annalee Virk MD H/O stem cell transplant Cancer Center - BMT Exam [address] [facility] [address] ([facility]) (Primary Dx) [address] [place] [address] [place] [phone] Social History Tobacco Use Types Packs/Day Years Used Date Never Smoker Smokeless Tobacco: Never Used Alcohol Use Drinks/Week oz/Week Comments No 0 Standard 0.0 drinks or equivalent Sex Assigned at Date Recorded Not on file as of this encounter Last Filed Vital Signs Vital Sign Reading [...] Mass Index 21.11 07/28/2017 2:16 PM CDT in this encounter Functional Status Functional Status Response [...] impairment: No 05/06/2017 as of this encounter Progress Notes * Kandi Branham RN - 07/28/2017 3:10 PM CDT Date of Transplant: 03/02/16 CD34 Selected boost 07/08/2016 Preparative Regimen: Fludarabine/Melphalan Fully ablative/reduced intensity/NST: KAYLEE 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 Central line: none LTFU Orders placed for 03/02/2018. labs, BMBX Check IgG Monthly (due beginning of August) 07/28--ANC low 750, Will hold off on giving zarxio this week. Recheck cbc cdiff next week. Giving new Rx for itching atarax 25 mg PRN Q 8 hours. Asked not to use medication creams without rash. Giving Diphon mouth rinse for mouth sores. RTC Weekly 08/04 Labs, ENGINEER PROCESS (cbc,cmp) 08/11 Labs, MD 08/30 MRI head 09/01 [facility] 09/20Dr. Sam, ortho follow up left hip 12/13 Dr. Christine in this encounter Plan of Treatment Date Type Specialty Care Team Description 06/28/2017 Procedure Pass Infectious Diseases Name Priority Associated Diagnoses Order Schedule CBC AND DIFF Routine H/O stem cell transplant Expected: 08/04/2017 (HCC) (Approximate), Expires: 07/28/2018 COMPREHENSIVE METABOLIC PANEL Routine H/O stem cell transplant Expected : 08/04/2017 (HCC) (Approximate), Expires: 07/28/2018 as of this encounter Visit Diagnoses Diagnosis H/O stem cell transplant (HCC) - Primary Peripheral stem cells replaced by transplant in this encounter
--- OUTSIDE RECORDS SUMMARY | 2017-07-30 03:54 | XMS REPORT | Encounter Summary ---
Author Author [facility] Organization [facility] Address Unknown Phone Unavailable Care Team Providers Care Barratte Operator Name Role Phone PCP Unavailable Encounter Details Date Type Department Care Team Description 07/20/2017 Orders Only [facility] Annalee Virk MD H/O stem cell transplant Cancer Center - BMT Exam [address] (HCC) (Primary Dx) [address] [place] [address] [phone] Social History Tobacco Use Types Packs/Day Years [...] Diseases as of this encounter Results * MAGNESIUM (07/21/2017 2:20 PM) Component Value Ref Range Magnesium 2.1 1.6 - 2.6 mg/dL Specimen Performing Laboratory Blood [facility] [address] [place] [id number] * COMPREHENSIVE METABOLIC PANEL (07/21/2017 2:20 PM) Component Value Ref Range Sodium 135 (L) 137 - 147 MMOL/L Potassium 5.0 3.5 - 5.1 MMOL/L Chloride 107 98 - 110 MMOL/L Glucose 306 (H) 70 - 100 MG/DL Blood Urea Nitrogen 50 (H) 7 - 25 MG/DL Creatinine 1.56 (H) 0.4 - 1.00 MG/DL Calcium 9.7 8.5 - 10.6 MG/DL Total Protein 5.5 (L) 6.0 - 8.0 G/DL Total Bilirubin 0.4 0.3 - 1.2 MG/DL Albumin 3.5 3.5 - 5.0 G/DL Alk Phosphatase 201 (H) 25 - 110 U/L AST (SGOT) 32 7 - 40 U/L CO2 24 21 - 30 MMOL/L ALT (SGPT) 35 7 - 56 U/L Anion Gap 4 3 - 12 eGFR Non 34 (L) >60 mL/min Comment: The eGFR is not validated for use in drug dosing adjustments. Continue to use estimated creatinine clearance per dosing reference text. Please contact the Clinical Pharmacist for questions. eGFR 41 (L) >60 mL/min Comment: The eGFR is not validated for use in drug dosing adjustments. Continue to use estimated creatinine clearance per dosing reference text. Please contact the Clinical Pharmacist for questions. Specimen Performing Laboratory Blood [facility] [address] [place] [address] * CBC AND DIFF (07/21/2017 2:20 PM) Component Value Ref Range White Blood Cells 1.8 (L) 4.5 - 11.0 K/UL RBC 2.56 (L) 4.0 - 5.0 M/UL Hemoglobin 10.3 (L) 12.0 - 15.0 GM/DL Hematocrit 29.9 (L) 36 - 45 % MCV 116.8 (H) 80 - 100 FL MCH 40.2 (H) 26 - 34 PG MCHC 34.4 32.0 - 36.0 G/DL RDW 14.8 11 - 15 % Platelet Count 75 (L) 150 - 400 K/UL MPV 6.8 (L) 7 - 11 FL Neutrophils 29 (L) 41 - 77 % Lymphocytes 49 (H) 24 - 44 % Monocytes 19 (H) 4 - 12 % Eosinophils 3 0 - 5 % Basophils 0 0 - 2 % Absolute Neutrophil Count 0.50 (L) 1.8 - 7.0 K/UL Absolute Lymph Count 0.90 (L) 1.0 - 4.8 K/UL Absolute Monocyte Count 0.30 0 - 0.80 K/UL Absolute Eosinophil Count 0.00 0 - 0.45 K/UL Absolute Basophil Count 0.00 0 - 0.20 K/UL Specimen Performing Laboratory Blood [facility] [address] [place] [address] in this encounter Visit Diagnoses Diagnosis H/O stem cell transplant (HCC) - Primary Peripheral stem cells replaced by transplant in this encounter
--- OUTSIDE RECORDS SUMMARY | 2017-07-30 03:54 | XMS REPORT | Encounter Summary ---
Author Author [facility] Organization [facility] Address Unknown Phone Unavailable Care Team Providers Care Rug Inspector Helper Name Role Phone PCP Unavailable Reason for Visit * Reason Comments Results Encounter Details Date Type Department Care Team Description 07/14/2017 Telephone [facility] Miriam Conti, Results Physicians - Internal MD Medicine [address] [facility] 5TH FLOOR POD [address] [facility] [place] [address] OFFICE [address] [phone] [place] [address] Social History Tobacco Use Types [...] impairment: No 05/06/2017 as of this encounter Miscellaneous Notes * Telephone Encounter - Miriam Conti MD - 07/14/2017 11:12 AM CDT Spoke with elizabeth about the results, increase vit D and Lt4 as planned, will recheck labs when she sees me in Sep, 2017. in this encounter Plan of Treatment Date Type Specialty Care Team Description 06/28/2017 Procedure Pass Infectious Diseases as of this encounter Visit Diagnoses Not on filein this encounter
--- OUTSIDE RECORDS SUMMARY | 2017-07-30 03:54 | XMS REPORT | Encounter Summary ---
Author Author [facility] Organization [facility] Address Unknown Phone Unavailable Care Team Providers Care Robotics Application Engineer Name Role Phone PCP Unavailable Reason for Visit * Reason Comments Heme/Onc Care Encounter Details Date Type Department Care Team Description 07/16/2017 Nurse Only [facility] Luis Moody MD 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 [address] remission (HCC);H/O bone [address] marrow [address] [place] [address] ([facility]);[place] [address] [phone] Social History Tobacco Use Types Packs/Day Years [...] Diseases as of this encounter Results * IMMUNOGLOBULIN G (IGG) (07/16/2017 11:55 AM) Component Value Ref Range IgG 442 (L) 762 - 1488 MG/DL Specimen Performing Laboratory Blood [facility] [address] [place] [address] * MAGNESIUM (07/16/2017 11:55 AM) Component Value Ref Range Magnesium 2.0 1.6 - 2.6 mg/dL Specimen Performing Laboratory Blood [facility] [address] [place] [address] * COMPREHENSIVE METABOLIC PANEL (07/16/2017 11:55 AM) Component Value Ref Range Sodium 136 (L) 137 - 147 MMOL/L Potassium 4.6 3.5 - 5.1 MMOL/L Chloride 109 98 - 110 MMOL/L Glucose 185 (H) 70 - 100 MG/DL Blood Urea Nitrogen 49 (H) 7 - 25 MG/DL Creatinine 1.27 (H) 0.4 - 1.00 MG/DL Calcium 9.3 8.5 - 10.6 MG/DL Total Protein 5.0 (L) 6.0 - 8.0 G/DL Total Bilirubin 0.4 0.3 - 1.2 MG/DL Albumin 3.2 (L) 3.5 - 5.0 G/DL Alk Phosphatase 197 (H) 25 - 110 U/L AST (SGOT) 43 (H) 7 - 40 U/L CO2 24 21 - 30 MMOL/L ALT (SGPT) 52 7 - 56 U/L Anion Gap 3 3 - 12 eGFR Non 43 (L) >60 mL/min Comment: The eGFR is not validated for use in drug dosing adjustments. Continue to use estimated creatinine clearance per dosing reference text. Please contact the Clinical Pharmacist for questions. eGFR 52 (L) >60 mL/min Comment: The eGFR is not validated for use in drug dosing adjustments. Continue to use estimated creatinine clearance per dosing reference text. Please contact the Clinical Pharmacist for questions. Specimen Performing Laboratory Blood [facility] [address] [place] [address] * CBC AND DIFF (07/16/2017 11:55 AM) Component Value Ref Range White Blood Cells 1.9 (L) 4.5 - 11.0 K/UL RBC 2.33 (L) 4.0 - 5.0 M/UL Hemoglobin 9.3 (L) 12.0 - 15.0 GM/DL Hematocrit 27.6 (L) 36 - 45 % MCV 118.5 (H) 80 - 100 FL MCH 40.0 (H) 26 - 34 PG MCHC 33.7 32.0 - 36.0 G/DL RDW 15.5 (H) 11 - 15 % Platelet Count 65 (L) 150 - 400 K/UL MPV 7.1 7 - 11 FL Neutrophils 39 (L) 41 - 77 % Lymphocytes 42 24 - 44 % Monocytes 17 (H) 4 - 12 % Eosinophils 2 0 - 5 % Basophils 0 0 - 2 % Absolute Neutrophil Count 0.80 (L) 1.8 - 7.0 K/UL Absolute Lymph Count 0.80 (L) 1.0 - 4.8 K/UL Absolute Monocyte Count 0.30 0 - 0.80 K/UL Absolute Eosinophil Count 0.00 0 - 0.45 K/UL Absolute Basophil Count 0.00 0 - 0.20 K/UL Specimen Performing Laboratory Blood [facility] [address] [place] [address] 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
--- OUTSIDE RECORDS SUMMARY | 2017-07-30 03:54 | XMS REPORT | Encounter Summary ---
Author Author [facility] Organization [facility] Address Unknown Phone Unavailable Care Team Providers Care Appraisal Analyst Name Role Phone PCP Unavailable Reason for Visit * Reason Comments Heme/Onc Care Encounter Details Date Type Department Care Team Description 07/21/2017 Office Visit [facility] 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 OFF MACHINE OPERATOR transplant ([facility]);Type [address] [address] complication, with [phone] long-term current use of insulin ([facility]);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;Pancytopenia ([facility]);Low serum vitamin D Social History Tobacco Use Types Packs/Day Years Used Date Never Smoker Smokeless Tobacco: Never Used Alcohol Use Drinks/Week oz/Week Comments No 0 Standard 0.0 drinks or equivalent Sex Assigned at Date Recorded Not on file as of this encounter Last Filed Vital Signs Vital Sign Reading Time Taken Blood Pressure 134/71 07/21/2017 2:27 PM CDT Pulse 68 07/21/2017 2:27 PM CDT Temperature 36.6 C (97.8 F) 07/21/2017 2:27 PM CDT Respiratory Rate 12 07/21/2017 2:27 PM CDT Oxygen Saturation 99% 07/21/2017 2:27 PM CDT Inhaled Oxygen - - Concentration Weight 56.8 kg (125 lb 3.2 oz) 07/21/2017 2:27 PM CDT Height 166.6 cm (5' 5.59") 07/21/2017 2:27 PM CDT Body Mass Index 20.46 07/21/2017 2:27 PM CDT in this encounter Functional Status [...] as of this encounter Progress Notes * Dang Sweeney RN - 07/21/2017 2:30 PM CDT Date of Transplant: 03/02/16 CD34 Selected boost 07/08/2016 Preparative Regimen: Fludarabine/Melphalan Fully ablative/reduced intensity/NST: KAYLEE Disease: AML (from [facility]) Disease status at transplant: 1st CR Cytogenetic/Fish AT DIAGNOSIS: HLA Match: 8:8 Donor & Cell source: matched sib (sister) [id number] PSC CMV: both POS ABO: both O POS Consents/Studies: 8322, blood, H&P, KAYLEE Flu/Ehrmila allo consent Coordinator: RUDDY MCKINNON RN CMV monitoring: Completed EBV monitoring: N/A Chimerism results: 11/09/16 - 100% donor Transfusion parameters: Standard Electrolyte replacement goal: Standard GVHD location: GI Current GVHD treatment: none Tapers: (prednisone completed 11/16/16) PJP: Last prednisone Oct 2016, no PJP needed. Central line: none LTFU Orders placed for 03/02/2018. labs, BMBX Check IgG Monthly (due beginning of August) 07/21-- patient reports feeling well, but does report she still cannot see out of Left eye and has very mild dizziness. Patient denies any other complaints or concerns. ANC 500 today; rx for levaquin and diflucan sent to patient's pharmacy. Patient's creatinine elevated today; instructed to increase intake of water. Patient and her family verbalize and demonstrate understanding. RTC Weekly (cbc,cmp) 07/28 labs, 08/30 MRI head 09/20baron Callejas follow up left hip 12/13 Dr. Marcelo. * Tiff Mendoza, CUT OFF MACHINE OPERATOR - 07/21/2017 2:30 PM CDT Formatting of this note may be different from the original. Date of Service: 07/21/2017 Subjective: S/p Flu/Hermila conditioning followed by MSD transplant, currently 1 year 5 months Pt reports felling well. Denies fever, nausea, vomiting, diarrhea or rash. Reports adequate food intake, decreased water intake. History of Present Illness Patient with myelodysplastic/myeloproliferative neoplasm, morphologically favoring CMML-2, s/p 4 cycles of dacogen, progressed to AML, CR 1 after 7+3 and HIDAC x 1 Date of Transplant: 03/02/16 Preparative Regimen: Fludarabine/Melphalan Fully ablative/reduced intensity/NST: KAYLEE Disease: AML (from [facility]) Disease status at transplant: 1st CR Cytogenetic/Fish AT DIAGNOSIS: t(7:11) HLA Match: 8:8 Donor & Cell source: matched sib (sister) [id number] PSC CMV: both POS ABO: both O POS Consents/Studies: 8322, blood, H&P, KAYLEE Flu/Hermila allo consent Coordinator: RUDDY MCKINNON RN Donna Wilde is a 61 y.o. female with a PMH of DM, HTN and HLD who presented from [facility] ED with a leukocytosis concerning for Leukemia. Per her daughter, in early December 2014 she developed a chronic cough which was unremitting. She then presented to due to [facility] ED with complains of weakness, fatigue and shortness of breath on 01/08/15. Labs drawn in ED revealed leukocytosis with WBC 79.2. Patient was transferred to : BMBx done 01/09/2015 revealed myelodysplastic/ myeloproliferative neoplasm, morphologically favoring CMML-2, involving a markedly hypercellular marrow (95-100%) with trilineage dyspoiesis with 8% blasts and 11% monocytes Cytogenetics was negative for BCR/ABL but positive for t(7:11), an anomaly seen in AML (poor prognosis). US revealed splenomegaly at 15.9 cm Patient was placed on hydrea and referred to Dr. Óscar Jones in [place], hydrea was DC due to thrombocytopenia. She was treated with IVIG x 2 for concern of hemolytic anemia (07/23/15) Patient then started on Dacogen cycle # 1 on 08/19/15 and cycle # 4 on 11/11/15. Patient was referred to us by Dr. Jones for allogeneic stem cell transplant consideration. Patient with progression to AML. S/p 7+3 induction chemotherapy. Patient received HIDAC cycle #1 and is now post Allo SCT with MSD on 03/02/16. Post transplant course complicated by E-coli bacteremia and pneumonia. She aspirated on 03/21 and was coded. Pulse returned after 2 rounds of CPR and Epi X 1. Due to agonal breathing she was intubated and transferred to ICU, extubated on 03/26. Discharged from hospital 04/20. Currently being followed by Endocrinology to help with glycemic control. Received stem cell boost on 07/08/16.S/p inpatient rehab discharge on .Was previously admitted for GI GVHD. Placed on steroids, now tapered off, she has severe proximal steroid myopathy. Patient also with multiple CMV reactivation now resolved Recent prolonged hospitalization after loss of consciousness and a fall. Review of Systems Constitutional: Fatigue, thin build. No fever or chills. HENT: Cannot see from left eye. Dysphagia resolved. No congestion, rhinorrhea or mouth sores. Eyes: Status post left vitreal biopsy, left eye blind CVS: No chest pain, edema, or palpitations Respiratory: No shortness of breath, wheezing, cough, hemoptysis, or chest tightness Abdomen: Improved appetite, has mild GERD : No dysuria, flank pain, frequency, hematuria, urgency MSK: Left hip pain with with weightbearing, history of left hip fracture, Endocrine: No cold/ heat intolerance, polyuria, polydipsia, or polyphagia asthenia Dermatology: Multiple bruises, fading ecchymosis left periorbital and temporal region Neurology: No headaches, dizziness, facial asymmetry, seizures, speech difficulty, weakness, tremors, light headedness, or syncope. Hematologic: No swelling or adenopathy Psych: No behavior problem, confusion, mood changes, hallucinations, nervous/ anxiety, sleep disturbances Family Hx: DM, HTN Medical HX: Diabetes, HLD, Diabetic retinopathy and vitreous hemorrhage Surgical Hx: Gallbladder, C Section Social HX: . Pt is originally from [place] and is wolof speaking only. She has been living in [facility] for the past 15 years however she migrated to the in the . She has 8 children and 6 siblings No Known Allergies Objective: acetaminophen (TYLENOL) 325 mg tablet Take 2 Tabs by mouth every 4 hours as needed. acyclovir (ZOVIRAX) 800 mg tablet Take 1 Tab by mouth twice daily. amLODIPine (NORVASC) 10 mg tablet Take 1 tablet by mouth daily. Indications : HYPERTENSION benzonatate (TESSALON PERLES) 100 mg capsule Take 1 capsule by mouth every 8 hours as needed for Cough. blood sugar diagnostic (ONETOUCH VERIO) test strip Use 1 strip as directed before meals and at bedtime. ICD 10 E11.9 Blood-Glucose Meter misc One Touch Verio meter budesonide (ENTOCORT EC) 3 mg capsule Take 1 capsule by mouth twice daily. cholecalciferol(+) (VITAMIN D3) 2,000 unit tablet Take 1 tablet by mouth daily. citalopram (CELEXA) 20 mg tablet Take 1 tablet by mouth daily. fluconazole (DIFLUCAN) 200 mg tablet Take 1 tablet by mouth daily. insulin aspart (NOVOLOG FLEXPEN) 100 unit/mL injection PEN Inject 3 Units under the skin three times daily with meals. insulin detemir(+) (LEVEMIR FLEXTOUCH) 100 unit/mL (3 mL) injection pen Inject 10 Units under the skin at bedtime daily. Indications: type 2 diabetes mellitus, E 11.9 Insulin Buckner (Disposable) 31 gauge x 1/4" ndle Use as needed for insulin administration before meals and at bedtime. lancets (ACCU-CHEK FASTCLIX) MIS To check blood sugars before meals and at bed time. leucovorin 25 mg tab Take 1 tablet by mouth daily for 30 days. levoFLOXacin (LEVAQUIN) 750 mg tablet Take 1 tablet by mouth every 48 hours. levothyroxine (SYNTHROID) 75 mcg tablet Take 1 tablet by mouth daily 30 minutes before breakfast. magnesium oxide (MAG-OX) 400 mg tablet Take 400 mg by mouth. mineral oil/white petrolatum (ABSORBASE) oint apply to hands and affected areas as needed bjpqwfvc-pucxqrnno-avfajorkfaivc (MAXITROL) 3.5 mg/g-10,000 unit/g-0.1 % ophthalmic ointment Apply 1 cm to left eye as directed twice daily. omeprazole DR(+) (PRILOSEC) 20 mg capsule Take 1 capsule by mouth twice daily. penicillin V potassium (VEETID) 250 mg tablet Take 3 tabs by mouth twice daily. pyrimethamine (DARAPRIM) 25 mg tablet Take 1 tablet by mouth daily. sulfADIAZINE 500 mg tablet Take 2 tablets by mouth twice daily. Vitals: 07/21/17 1427 BP: 134/71 Pulse: 68 Resp: 12 Temp: 36.6 C (97.8 F) TempSrc: Oral SpO2: 99% Weight: 56.8 kg (125 lb 3.2 oz) Height: 166.6 cm (65.59") Body mass index is 20.46 kg/(m^2). Vitals, BMI noted and reviewed Pain Score: Zero Pain Addressed: Current regimen working to control pain. Patient Evaluated for a Clinical Trial: Patient currently in screening for a treatment clinical trial. Karnofsky Scale: 60% Requires some assistance, but able to care for most of needs Physical Exam Constitutional: She appears well-developed and well-nourished. No distress. Fatigued appearing HENT: Head: Normocephalic and atraumatic. Nose: Nose normal. Mouth/Throat: Oropharynx is clear and moist. No posterior oropharyngeal edema, posterior oropharyngeal erythema or tonsillar abscesses. Dry mouth, mild lichenoid changes Eyes: EOM are normal. Pupils are equal, round, and reactive to light. Right eye exhibits no discharge. Left eye exhibits no discharge. No scleral icterus. Neck: Normal range of motion. Neck supple. Cardiovascular: Normal rate and regular rhythm. Murmur (Aortic Ejection murmur) heard. Pulmonary/Chest: Effort normal. No respiratory distress. She has no wheezes. She exhibits no tenderness. Abdominal: Soft. Bowel sounds are normal. She exhibits no distension and no mass. There is no guarding. Musculoskeletal: She exhibits no edema. Right hip ORIF Neurological: She is alert. Proximal steroid induced myopathy Skin: Skin is warm and dry. No rash noted. No pallor. Multiple bruises Psychiatric: She has a normal mood and affect. Her behavior is normal. Nursing note and vitals reviewed. Comprehensive Metabolic Profile Lab Results Component Value Date/Time NA 135 (L) 07/21/2017 02:20 PM K 5.0 07/21/2017 02:20 PM CL 107 07/21/2017 02:20 PM CO2 24 07/21/2017 02:20 PM GAP 4 07/21/2017 02:20 PM BUN 50 (H) 07/21/2017 02:20 PM CR 1.56 (H) 07/21/2017 02:20 PM GLU 306 (H) 07/21/2017 02:20 PM Lab Results Component Value Date/Time CA 9.7 07/21/2017 02:20 PM PO4 3.9 05/04/2017 06:46 AM ALBUMIN 3.5 07/21/2017 02:20 PM TOTPROT 5.5 (L) 07/21/2017 02:20 PM ALKPHOS 201 (H) 07/21/2017 02:20 PM AST 32 07/21/2017 02:20 PM ALT 35 07/21/2017 02:20 PM TOTBILI 0.4 07/21/2017 02:20 PM GFR 34 (L) 07/21/2017 02:20 PM GFRAA 41 (L) 07/21/2017 02:20 PM CBC w/Diff Lab Results Component Value Date/Time WBC 1.8 (L) 07/21/2017 02:20 PM RBC 2.56 (L) 07/21/2017 02:20 PM HGB 10.3 (L) 07/21/2017 02:20 PM HCT 29.9 (L) 07/21/2017 02:20 PM MCV 116.8 (H) 07/21/2017 02:20 PM MCH 40.2 (H) 07/21/2017 02:20 PM MCHC 34.4 07/21/2017 02:20 PM RDW 14.8 07/21/2017 02:20 PM PLTCT 75 (L) 07/21/2017 02:20 PM MPV 6.8 (L) 07/21/2017 02:20 PM Lab Results Component Value Date/Time NEUT 29 (L) 07/21/2017 02:20 PM ANC 0.50 (L) 07/21/2017 02:20 PM LYMA 49 (H) 07/21/2017 02:20 PM ALC 0.90 (L) 07/21/2017 02:20 PM BRUCE 19 (H) 07/21/2017 02:20 PM AMC 0.30 07/21/2017 02:20 PM EOSA 3 07/21/2017 02:20 PM AEC 0.00 07/21/2017 02:20 PM BASA 0 07/21/2017 02:20 PM ABC 0.00 07/21/2017 02:20 PM Assessment and Plan: Primary Diagnosis: - 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 ANC 500 07/21/17. STEP FINISHER: -Brain lesion on MRI 04/29: concerning for infection or malignancy. "Enhancing nodular medial right cerebellar lesion and numerous additional smaller enhancing juxtacortical bilateral cerebral, basal nuclei, and brainstem lesions with mild associated multifocal vasogenic edema likely reflecting leukemia. Opportunistic intracranial infection could appear similar. -No prior history of STEP FINISHER malignancy. LP 05/03/17 did not show evidence of leukemia. -CT Sinus05/01 with right maxillary mass, s/p: Bx, cultures and path negative -ID consulted,Toxoplasma IgG positive, started on anti-toxo: sulfadiazine, pyrimethamine, leucovorin MRI scan on 05/26/17 1. Decrease in size and number of multiple cerebral and cerebellar enhancing lesions. Differential considerations include improvement in STEP FINISHER leukemia or STEP FINISHER infection. 2. Resolution of the left subdural hematoma with decreased conspicuity or continued evolution of the left subarachnoid blood products. Follow up with ID (06/28) Dr. Christine, she was changed to maintenance treatment: sulfadiazine 1000 mg twice a day and pyrimethamine 25 mg daily and leucovorin 25 mg daily, plan to treat for at least 6 months to 1 year or more likely lifetime with her persistent poor counts Rpt MRI in 2 months - scheduled for 08/30/17 Neuro/MSK: - S/p fall at home with + LOC resulting in a traumatic Subarachnoid hemorrhage and infra orbital bleed- Left -CT head 04/16: Moderate subarachnoid hemorrhage scattered throughout the bilateral hemispheric sulci -T11 compression fractureduring her fall that has remained stable -Displaced left intertrochanteric femur fractureand required surgery on 2016 for stabilization -Following with orthopedics, x-rays 06/21 shows adequate healing-Currently WBAT for LLE. Eyes: - Panuveitis and NAOIN, vision loss, left eye - Continue maxitrol - She has no light perception in the left eye, since early 03/2017 - Followed by ophthalmology status post vitreal biopsy 05/13-all negative Cardiac: Essential Hypertension. On Amlodipine 10 mg daily. Monitor leg edema FEN/Renal: -Cr elevated, encouraged oral fluid intake - Replace per BMT replacement protocol. ID: -Prophylasis: Pen VK (Sulfadiazine does not cover pneumococcus adequately), Acyclovir. Zarxio once today. Added Levaquin and fluconazole today (07/21) for ANC < 500, renally dosed. -Please see STEP FINISHER section for toxo therapy -Last CD4 count above 300 in February 2017 GI:Had dysphagia, swallow study neg and EGD pertinent for erythematous mucosa/small non bleeding ulcers Has GERD, will increase PPI to BID -Dyphagia improving -Improved appetite, since starting B/B 06/02. Beclomethasone d/c 07/09. Continues budesonide. Endo: -BG management by endocrine -Hypothyroid on Synthroid - Low serum Vitamin D (18.3 on 07/09), per Endo, will replace at 2000 units/day, avoiding high dose replacement due to pt history of hypercalcemia. Psych: Low dose klonopin at bedtime, mood better GvHD Staging/Grading: Chronic GvHD presentoral lichen planus, on diphon rinse, resolved RTC: Weekly 09/01: [facility] 09/20: Ortho and Endo Tiff Mendoza APRN Collaborated with Dr. Annalee Virk in this encounter Plan of Treatment Date [...] Pharmacist for questions. Specimen Performing Laboratory Blood [facility] [address] [place] [address] * CBC AND DIFF (07/28/2017 2:09 PM) [...] 7.0 K/UL Manual Specimen Performing Laboratory Blood [facility] [address] [place] [address] in this encounter Visit Diagnoses Diagnosis History of stem cell transplant (HCC) - Primary Peripheral stem cells replaced by transplant 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 Acquired hypothyroidism Unspecified hypothyroidism 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HCC) Bone marrow replaced by transplant Type 2 diabetes mellitus without complication, with long-term current use of insulin (HCC) 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 Profound impairment, one eye, Impairment level not further specified Pancytopenia (HCC) Other pancytopenia Low serum vitamin D in this encounter
--- OUTSIDE RECORDS SUMMARY | 2017-07-30 03:54 | XMS REPORT | Encounter Summary ---
Author Author [facility] Organization [facility] Address Unknown Phone Unavailable Care Team Providers Care Adolescent Coordinator Name Role Phone PCP Unavailable Encounter Details Date Type Department Care Team Description 07/14/2017 Pharmacy Visit [facility] [address] [place] [address] Social History Tobacco Use Types Packs/Day Years [...]
--- OUTSIDE RECORDS SUMMARY | 2017-07-30 03:54 | XMS REPORT | Encounter Summary ---
Author Author [facility] Organization [facility] Address Unknown Phone Unavailable Care Team Providers Care Stone Sandblaster Name Role Phone PCP Unavailable Encounter Details Date Type Department Care Team Description 07/09/2017 [facility] Luis Moody MD Encounter [facility] [address] [place] [address] [place] [address] [phone] Social History Tobacco Use Types Packs/Day Years [...] impairment: No 05/06/2017 as of this encounter Medications at Time of Discharge Medication Sig. Disp. Refills Start Date End Date acetaminophen (TYLENOL) Take 2 Tabs by mouth 0 04/27/2017 325 mg tablet every 4 hours as needed. acyclovir (ZOVIRAX) 800 Take 1 Tab by mouth twice 60 Tab 5 04/05/2017 mg tabletIndications: daily. 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remission (HCC) amLODIPine (NORVASC) 10 Take 1 tablet by mouth 90 tablet 3 07/09/2017 mg tabletIndications: daily. Indications: HYPERTENSION HYPERTENSION benzonatate (TESSALON Take 1 capsule by mouth 20 capsule 0 06/09/2017 PERLES) 100 mg capsule every 8 hours as needed for Cough. blood sugar diagnostic Use 1 strip as directed 400 strip 6 07/09/2017 (ONETOUCH VERIO) test before meals and at strip bedtime. ICD 10 E11.9 Blood-Glucose Meter [facility] One Touch Verio meter 1 Each 0 10/20/2016 budesonide (ENTOCORT EC) Take 1 capsule by mouth 60 capsule 3 2016 3 mg capsule twice daily. citalopram (CELEXA) 20 mg Take 1 tablet by mouth 30 tablet 3 2016 tablet daily. insulin aspart (NOVOLOG Inject 3 Units under the 3 Package 3 2016 FLEXPEN) 100 unit/mL skin three times daily injection PEN with meals. insulin detemir(+) Inject 10 Units under the 100 Units 5 06/10/2017 (LEVEMIR FLEXTOUCH) 100 skin at bedtime daily. unit/mL (3 mL) injection Indications: type 2 penIndications: type 2 diabetes mellitus, E 11.9 diabetes mellitus, E 11.9 Insulin [place] Use as needed for insulin 400 each 6 06/02/2017 (Disposable) 31 gauge x administration before 1/4" ndle meals and at bedtime. lancets (ACCU-CHEK To check blood sugars 100 Each 3 10/13/2016 FASTCLIX) MISC before meals and at bed time. magnesium oxide (MAG-OX) Take 400 mg by mouth. 400 mg tablet gmyjcyad-wfuudnlda-wvrvtm Apply 1 cm to left eye as 3.5 g 2 2016 thasone (MAXITROL) 3.5 directed twice daily. mg/g-10,000 unit/g-0.1 % ophthalmic ointmentIndications: Panuveitis of left eye omeprazole DR(+) Take 1 capsule by mouth 90 capsule 3 06/30/2017 (PRILOSEC) 20 mg capsule twice daily. penicillin V potassium Take 3 tabs by mouth 180 tablet 3 06/03/2017 (VEETID) 250 mg tablet twice daily. pyrimethamine (DARAPRIM) Take 1 tablet by mouth 30 tablet 11 2016 25 mg tablet daily. sulfADIAZINE 500 mg Take 2 tablets by mouth 120 tablet 11 06/28/2017 tablet twice daily. leucovorin 25 mg tab Take 1 tablet by mouth 30 tablet 11 06/28/2017 07/28/2017 daily for 30 days. levothyroxine (SYNTHROID) Take 1 tablet by mouth 90 tablet 0 201607/14/2017 75 mcg tablet daily 30 minutes before breakfast. mineral oil/white apply to hands and 09/18/2016 07/28/2017 petrolatum (ABSORBASE) affected areas as needed oint as of this encounter Plan of Treatment Date Type Specialty Care Team Description 06/28/2017 Procedure Pass Infectious Diseases as of this encounter Results * CHEST 2 VIEWS (07/09/2017 2:46 PM) [...] Alfonso Parrish M.D. on 07/09/2017 3:00 PM. 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) Bone marrow replaced by transplant in this encounter
--- OUTSIDE RECORDS SUMMARY | 2017-07-30 03:54 | XMS REPORT | Encounter Summary ---
Author Author [facility] Organization [facility] Address Unknown Phone Unavailable Care Team Providers Care Sand Miller Name Role Phone PCP Unavailable Encounter Details Date Type Department Care Team Description 07/21/2017 Hospital [facility] Annalee Virk MD Encounter Cancer Center - BMT [address] Treatment [address] [place], [place] [address] [place] [address] [phone] Social History Tobacco Use Types Packs/Day Years [...] strip bedtime. ICD 10 E11.9 Blood-Glucose Meter misc One Touch Verio meter 1 Each 0 10/20/2016 budesonide (ENTOCORT EC) Take 1 capsule by mouth 60 capsule 3 2016 3 mg capsule twice daily. cholecalciferol(+) Take 1 tablet by mouth 90 tablet 07/21/2017 (VITAMIN D3) 2,000 unit daily. tablet citalopram (CELEXA) 20 mg Take 1 tablet by mouth 30 tablet 3 2016 tablet daily. fluconazole (DIFLUCAN) Take 1 tablet by mouth 60 tablet 0 07/21/2017 200 mg tablet daily. insulin aspart (NOVOLOG Inject 3 Units under the 3 Package 3 2016 FLEXPEN) 100 unit/mL skin three times daily injection PEN with meals. insulin detemir(+) Inject 10 Units under the 100 Units 5 06/10/2017 (LEVEMIR FLEXTOUCH) 100 skin at bedtime daily. unit/mL (3 mL) injection Indications: type 2 penIndications: type 2 diabetes mellitus, E 11.9 diabetes mellitus, E 11.9 Insulin [place] Use as needed for insulin 400 each 6 06/02/2017 (Disposable) 31 gauge x administration before 1/4" ndle meals and at bedtime. lancets (ACCU-CHEK To check blood sugars 100 Each 3 10/13/2016 FASTCLIX) MISC before meals and at bed time. levoFLOXacin (LEVAQUIN) Take 1 tablet by mouth 30 tablet 0 07/21/2017 750 mg tablet every 48 hours. levothyroxine (SYNTHROID) Take 1 tablet by mouth 90 tablet 2 2016 75 mcg tablet daily 30 minutes before breakfast. magnesium oxide (MAG-OX) Take 400 mg by mouth. 400 mg tablet xfllowwy-zhrsjhjqd-pwgtah Apply 1 cm to left eye as [...] 11 06/28/2017 07/28/2017 daily for 30 days. mineral oil/white apply to hands and 09/18/2016 07/28/2017 petrolatum (ABSORBASE) affected areas as needed oint as of this encounter Progress Notes * Va Sanchez RN - 07/21/2017 4:00 PM CDT Donna Wilde 61 y.o. female 07/21/2017 Notes - Patient added on for treatment for Zarxio injection. Explain reason for injection and patient verbalize understanding. Zarxio 300 mcg given to left lower abd and patient tolerated well. Patient left ambulatory from clinic with the assistance of a walker and family. Va Sanchez RN 07/21/2017 in this encounter Plan of Treatment Date Type Specialty Care Team Description 06/28/2017 Procedure Pass Infectious Diseases as of this encounter Visit Diagnoses Diagnosis 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 in this encounter Administered Medications Medication Order MAR Action Action Date Dose Rate Site filgrastim-sndz (ZARXIO) inj syringe 300 Given 07/21/2017 300 mcg Abdomen:LLQ mcg 15:58 CDT 300 mcg, Subcutaneous, ONCE, 1 dose, Wed07/21/17 at 1530, Cancer Center Infusion in this encounter
--- OUTSIDE RECORDS SUMMARY | 2017-07-30 03:54 | XMS REPORT | Encounter Summary ---
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 [facility] [address] [place] [address] [place] [address] [phone] Social History Tobacco Use Types Packs/Day Years [...] - 2.6 mg/dL Specimen Performing Laboratory Blood [facility] [address] [place] [address] * COMPREHENSIVE METABOLIC PANEL (07/21/2017 2:20 PM) [...] Pharmacist for questions. Specimen Performing Laboratory Blood [facility] [address] [place] [id number] * CBC AND DIFF (07/21/2017 2:20 PM) [...] - 0.20 K/UL Specimen Performing Laboratory Blood [facility] [address] [place] [address] in this encounter Visit Diagnoses Diagnosis H/O stem cell transplant (HCC) Peripheral stem cells replaced by transplant in this encounter
--- OUTSIDE RECORDS SUMMARY | 2017-07-30 03:54 | XMS REPORT | Encounter Summary ---
Author Author [facility] Organization [facility] Address Unknown Phone Unavailable Care Team Providers Care Technology Manager Name Role Phone PCP Unavailable Reason for Visit * Reason Comments Heme/Onc Care Encounter Details Date Type Department Care Team Description 07/16/2017 Office Visit [facility] Luis Moody MD 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 [address] remission (HCC) (Primary [address] [place] [address] [place]);Blindness of left eye [address] [place] [address] [place] [address] contralateral eye;Type 2 [phone] diabetes mellitus without complication, with long-term current use of insulin (HCC);H/O bone marrow transplant (HCC);Hypogammaglobulinem ia (HCC) Social History Tobacco Use Types Packs/Day Years Used Date Never Smoker Smokeless Tobacco: Never Used Alcohol Use Drinks/Week oz/Week Comments No 0 Standard 0.0 drinks or equivalent Sex Assigned at Date Recorded Not on file as of this encounter Last Filed Vital Signs Vital Sign Reading Time Taken Blood Pressure 140/61 07/16/2017 12:20 PM CDT Pulse 65 07/16/2017 12:20 PM CDT Temperature 36.8 C (98.2 F) 07/16/2017 12:20 PM CDT Respiratory Rate 12 07/16/2017 12:20 PM CDT Oxygen Saturation 97% 07/16/2017 12:20 PM CDT Inhaled Oxygen - - Concentration Weight 59.9 kg (132 lb) 07/16/2017 12:20 PM CDT Height 166.6 cm (5' 5.59") 07/16/2017 12:20 PM CDT Body Mass Index 21.57 07/16/2017 12:20 PM CDT in this encounter Functional Status [...] Progress Notes * Kandi Branham RN - 07/16/2017 1:10 PM CDT Date of Transplant: 03/02/16 CD34 Selected boost 07/08/2016 Preparative Regimen: Fludarabine/Melphalan Fully ablative/reduced intensity/NST: KAYLEE Disease: AML (from [facility]) Disease status at transplant: 1st CR Cytogenetic/Fish AT DIAGNOSIS: HLA Match: 8:8 Donor & Cell source: matched sib (sister) [id number] PSC CMV: both POS ABO: both O POS Consents/Studies: 8322, blood, H&P, KAYLEE Flu/Hermila allo consent Coordinator: RUDDY MCKINNON RN CMV monitoring: Completed 06/30 not detected EBV monitoring: N/A Chimerism results: 11/09/16 - 100% donor Transfusion parameters: Standard Electrolyte replacement goal: Standard GVHD location: GI Current GVHD treatment: none Tapers: (prednisone completed 11/16/16) PJP: Last prednisone Oct 2016, no PJP needed. Central line: none LTFU Orders placed for 03/02/2018. labs, BMBX 07/16--Patient doing well, will plan to see next week to follow labs. Platelets slightly decreased today, will continue to monitor. RTC (cbc,cmp,mag,vre, igg) 08/30 MRI head 09/20Dr. Sam, ortho follow up left hip 12/13 Dr. Marcelo. * Luis Moody MD - 07/16/2017 1:10 PM CDT Formatting of this note may be different from the original. Date of Service: 07/16/2017 Subjective: S/p Flu/Hermila conditioning followed by MSD transplant, currently 1 year 5 months Appetite better S/p EGD for dysphagia which showed erythematous mucosa/small non bleeding ulcers Swallow study neg Seen by Dr. Sam (orho) and Dr. Christine ([place]) Mood improved History of Present Illness Patient with myelodysplastic/myeloproliferative neoplasm, morphologically favoring CMML-2, s/p 4 cycles of dacogen, progressed to AML, CR 1 after 7+3 and HIDAC x 1 Date of Transplant: 03/02/16 Preparative Regimen: Fludarabine/Melphalan Fully ablative/reduced intensity/NST: KAYLEE Disease: AML (from [facility]) Disease status at transplant: 1st CR Cytogenetic/Fish AT DIAGNOSIS: t(7:11) HLA Match: 8:8 Donor & Cell source: matched sib (sister) [id number] PSC CMV: both POS ABO: both O POS Consents/Studies: 8322, blood, H&P, KAYLEE Flu/Hermila allo consent Coordinator: RUDDY MCKINNON RN Donna Wilde is a 61 y.o. female with a PMH of DM, HTN and HLD who presented from [facility] ED with a leukocytosis concerning for Leukemia. Per her daughter, in early December 2014 she developed a chronic cough which was unremitting. She then presented to due to [facility] ED with complains of weakness, fatigue and [...] and referred to Dr. Óscar Jones in [place], hydrea was DC due to thrombocytopenia. She [...] and a fall. Review of Systems Constitutional: Positive for fatigue. Negative for fever and unexpected weight change. HENT: Negative for congestion. Eyes: Positive for visual disturbance. Respiratory: Negative for cough and shortness of breath. Cardiovascular: Negative for leg swelling. Gastrointestinal: Negative for diarrhea and nausea. Endocrine: Negative for cold intolerance. Genitourinary: Negative for dysuria and hematuria. Musculoskeletal: Positive for arthralgias. Skin: Positive for pallor. Negative for rash. Allergic/Immunologic: Positive for immunocompromised state. Neurological: Positive for weakness. Hematological: Does not bruise/bleed easily. Psychiatric/Behavioral: The patient is not nervous/anxious. Constitutional: Fatigue, thin build HENT: Dysphagia resolving Eyes: Status post left vitreal biopsy, left eye blind CVS: No chest pain, edema, or palpitations Respiratory: No shortness of breath, wheezing, cough, hemoptysis, or chest tightness Abdomen: Improved appetite, has mild GErD : No dysuria, flank pain, frequency, hematuria, urgency MSK: Left hip pain with with weightbearing, history of left hip fracture, Endocrine: No cold/ heat intolerance, polyuria, polydipsia, or polyphagia asthenia Dermatology: Multiple bruises, fading ecchymosis left periorbital and temporal region Neurology: No headaches, dizziness, facial asymmetry, seizures, speech difficulty, weakness, tremors, light headedness, or syncope. Hematologic: No bruising, swelling, or adenopathy Psych: No behavior problem, confusion, mood changes, hallucinations, nervous/ anxiety, sleep disturbances, or suicidal ideation. Family Hx: DM, HTN Medical HX: Diabetes, HLD, Diabetic retinopathy and vitreous hemorrhage Surgical Hx: Gallbladder, C Section Social HX: . Pt is originally from [place] and is kenyan speaking only. She has been living in [facility] for the past 15 years however she migrated to the in the 1980s. She has 8 children and 6 siblings [...] Take 1 capsule by mouth twice daily. citalopram (CELEXA) 20 mg tablet Take 1 tablet by mouth daily. insulin aspart (NOVOLOG FLEXPEN) 100 unit/mL injection PEN Inject 3 Units under the skin three times daily with meals. insulin detemir(+) (LEVEMIR FLEXTOUCH) 100 unit/mL (3 mL) injection pen Inject 10 Units under the skin at bedtime daily. Indications: type 2 diabetes mellitus, E 11.9 Insulin [place] (Disposable) 31 gauge x 1/4" ndle Use as needed for insulin administration before meals and at bedtime. lancets (ACCU-CHEK FASTCLIX) MIS To check blood sugars before meals and at bed time. leucovorin 25 mg tab Take 1 tablet by mouth daily for 30 days. levothyroxine (SYNTHROID) 75 mcg tablet Take 1 tablet by mouth daily 30 minutes before breakfast. magnesium oxide (MAG-OX) 400 mg tablet Take 400 mg by mouth. mineral oil/white petrolatum (ABSORBASE) oint apply to hands and affected areas as needed gupmstdb-vheutwjef-pfggebylyzlxm (MAXITROL) 3.5 mg/g-10,000 unit/g-0.1 % ophthalmic ointment Apply 1 cm to left eye as directed twice daily. omeprazole (+) (PRILOSEC) 20 mg capsule Take 1 capsule by mouth twice daily. penicillin V potassium (VEETID) 250 mg tablet Take 3 tabs by mouth twice daily. pyrimethamine (DARAPRIM) 25 mg tablet Take 1 tablet by mouth daily. sulfADIAZINE 500 mg tablet Take 2 tablets by mouth twice daily. Vitals: 07/16/17 1220 BP: 140/61 Pulse: 65 Resp: 12 Temp: 36.8 C (98.2 F) TempSrc: Oral SpO2: 97% Weight: 59.9 kg (132 lb) Height: 166.6 cm (65.59") Body mass index is 21.57 kg/(m^2). Vitals, BMI noted and reviewed Pain [...] eye exhibits no discharge. No scleral icterus. Cannot see from left eye. Neck: Normal range of motion. Neck supple. No JVD present. Cardiovascular: Normal rate and regular rhythm. Murmur (Aortic Ejection murmur) heard. Pulmonary/Chest: Effort normal. No respiratory distress. She has no wheezes. She exhibits no tenderness. Abdominal: Soft. Bowel sounds are normal. She exhibits no distension and no mass. There is no rebound and no guarding. Musculoskeletal: She exhibits no edema. Right hip ORIF Lymphadenopathy: She has no cervical adenopathy. Neurological: Proximal steroid induced myopathy Skin: Skin is warm and dry. No rash noted. No pallor. Multiple bruises Psychiatric: She has a normal mood and affect. Her behavior is normal. Nursing note and vitals reviewed. Comprehensive Metabolic Profile Lab Results Component Value Date/Time NA 136 (L) 07/16/2017 11:55 AM K 4.6 07/16/2017 11:55 AM CL 109 07/16/2017 11:55 AM CO2 24 07/16/2017 11:55 AM GAP 3 07/16/2017 11:55 AM BUN 49 (H) 07/16/2017 11:55 AM CR 1.27 (H) 07/16/2017 11:55 AM GLU 185 (H) 07/16/2017 11:55 AM Lab Results Component Value Date/Time CA 9.3 07/16/2017 11:55 AM PO4 3.9 05/04/2017 06:46 AM ALBUMIN 3.2 (L) 07/16/2017 11:55 AM TOTPROT 5.0 (L) 07/16/2017 11:55 AM ALKPHOS 197 (H) 07/16/2017 11:55 AM AST 43 (H) 07/16/2017 11:55 AM ALT 52 07/16/2017 11:55 AM TOTBILI 0.4 07/16/2017 11:55 AM GFR 43 (L) 07/16/2017 11:55 AM GFRAA 52 (L) 07/16/2017 11:55 AM CBC w/Diff Lab Results Component Value Date/Time WBC 1.9 (L) 07/16/2017 11:55 AM RBC 2.33 (L) 07/16/2017 11:55 AM HGB 9.3 (L) 07/16/2017 11:55 AM HCT 27.6 (L) 07/16/2017 11:55 AM MCV 118.5 (H) 07/16/2017 11:55 AM MCH 40.0 (H) 07/16/2017 11:55 AM MCHC 33.7 07/16/2017 11:55 AM RDW 15.5 (H) 07/16/2017 11:55 AM PLTCT 65 (L) 07/16/2017 11:55 AM MPV 7.1 07/16/2017 11:55 AM Lab Results Component Value Date/Time NEUT 39 (L) 07/16/2017 11:55 AM ANC 0.80 (L) 07/16/2017 11:55 AM LYMA 42 07/16/2017 11:55 AM ALC 0.80 (L) 07/16/2017 11:55 AM BRUCE 17 (H) 07/16/2017 11:55 AM AMC 0.30 07/16/2017 11:55 AM EOSA 2 07/16/2017 11:55 AM AEC 0.00 07/16/2017 11:55 AM BASA 0 07/16/2017 11:55 AM ABC 0.00 07/16/2017 11:55 AM Assessment and Plan: Primary Diagnosis: - 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 "Enhancing nodular medial right cerebellar lesion and numerous additional smaller enhancing juxtacortical bilateral cerebral, basal nuclei, and brainstem lesions with mild associated multifocal vasogenic edema likely reflecting leukemia. Opportunistic intracranial infection could appear similar. -No prior history of SCHOOL OFFICE MANAGER malignancy. LP 05/03/17 did not show evidence of leukemia. -CT Sinus05/01 with right maxillary mass, s/p: Bx, cultures and path negative -ID consulted,Toxoplasma IgG positive, started on anti-toxo: sulfadiazine 1000mg PO four times daily, pyrimethamine, leucovorin 25mg MRI scan on 05/26/17 1. Decrease in size and number of multiple cerebral and cerebellar enhancing lesions. Differential considerations include improvement in SCHOOL OFFICE MANAGER leukemia or SCHOOL OFFICE MANAGER infection. 2. Resolution of the left subdural [...] poor counts Rpt MRI in 2 months (end of July 2017) 3. Neuro/MSK: - S/p fall at home with + LOC resulting in a traumatic Subarachnoid hemorrhage and infra orbital bleed Left -CT head 04/16: Moderate subarachnoid hemorrhage scattered throughout the bilateral hemispheric sulci -T11 compression fractureduring her fall that has remained stable -Displaced left intertrochanteric femur fractureand required surgery on 2016 for stabilization -Follow-up with orthopedics, x-rays 06/21 shows adequate healing-Currently WBAT for LLE. 4. Pain control: On Ultram prn 5. Eyes: - Panuveitis and NAOIN, vision loss, left eye - Continue brimonidine, maxitrol and cyclopentoate - She has no light perception in the left eye, since early 03/2017 - Followed by ophthalmology status post vitreal biopsy 05/13-all negative, follow up with Optho Cardiac: Essential Hypertension, better controlled. On Amlodipine 10 mg daily. Monitor leg edema FEN/Renal: -Cr improved encouraged fluids - Replace per BMT replacement protocol. Stop PO KCl. ID: Prophylasis: Pen VK (Sulfadiazine does not cover pneumococcus adequately), Acyclovir Please see SCHOOL OFFICE MANAGER section for toxo therapy Last CD4 count above 300 in February 2017 GI:Had dysphagia, swallow study neg and EGD pertinent for erythematous mucosa/small non bleeding ulcers Has GERD, will increase PPI to BID Dyphagia improving Improved appetite, since starting B/B 06/02, OK to DC corn oil and Budesonide now. Endo: BG management by endocrine, Hypothyroid on Synthroid Psych: Low dose klonopin at bedtime, mood better GvHD Staging/Grading: Chronic GvHD presentoral lichen planus, on diphon rinse, resolved RTC Weekly 07/07: [facility]-seen and stable 07/09 Dexa scan, Endo-Saw Dr. Hu and plan to see again in Sep 2017. 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
--- OUTSIDE RECORDS SUMMARY | 2017-07-30 03:55 | XMS REPORT | Encounter Summary ---
Author Author [facility] Organization [facility] Address Unknown Phone Unavailable Care Team Providers Care Oracle R12 Developer Name Role Phone PCP Unavailable Reason for Referral * Radiology Services Status Reason Specialty Diagnoses / Referred By Referred To Procedures Contact Contact New Request Radiology Diagnoses Kirill Christine Toxoplasma MD encephalitis [address] ([facility] rocedures [place], [place] MRI HEAD WO/W [address] CONTRAST Reason for Visit * Reason Comments Outpatient Antibiotic Therapy (Opat) Encounter Details Date Type Department Care Team Description 06/28/2017 Office Visit [facility] Kirill Christine MD Toxoplasma encephalitis Physicians - Internal [address] [facility] ([facility]) (Primary Medicine MS 1028 Dx);Pancytopenia due to [address] [place] [address] chemotherapy ([facility]);S/P [address] [facility] [phone] allogeneic bone marrow OFFICE BLDG transplant ([facility]) [place] [address] Social History Tobacco Use Types Packs/Day Years Used Date Never Smoker Smokeless Tobacco: Never Used Alcohol Use Drinks/Week oz/Week Comments No 0 Standard 0.0 drinks or equivalent Sex Assigned at Date Recorded Not on file as of this encounter Last Filed Vital Signs Vital Sign Reading Time Taken Blood Pressure 132/72 06/28/2017 9:41 AM CDT Pulse 72 06/28/2017 9:41 AM CDT Temperature 36.7 C (98.1 F) 06/28/2017 9:41 AM CDT Respiratory Rate 12 06/28/2017 9:41 AM CDT Oxygen Saturation - - Inhaled Oxygen - - Concentration Weight 56.8 kg (125 lb 3.2 oz) 06/28/2017 9:41 AM CDT Height 165.1 cm (5' 5") 06/28/2017 9:41 AM CDT Body Mass Index 20.83 06/28/2017 9:41 AM CDT in this encounter Functional Status Functional [...] impairment: No 05/06/2017 as of this encounter Instructions * Patient Instructions - Kirill Christine MD - 06/28/2017 9:30 AM CDT Please change the sulfadiazine to 2 tablet twice daily The Pyrimethamine to 1 tablet daily The leucovorine continue 1 tablet daily in this encounter Progress Notes * Kirill Christine MD - 06/28/2017 9:30 AM CDT Formatting of this note may be different from the original. Date of Service: 06/28/2017 Subjective: Donna Wilde is a 61 y.o. female. History of Present Illness Donna Wilde is a 61 y.o. 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 She had multiple complications at that time including E. coli bacteremia and aspiration. She developed acute nocse-djxdiv-merx disease and was on steroids for some time; these were tapered and stopped in 11/2016 she was also hospitalized in 02/2017 with severe Streptococcus pneumoniae pneumonia and bacteremia requiring ICU stays and she recovered from this very well. In the last two months prior to April, the patient began having a gradual decrease in vision in the left eye. For the last one month, she has essentially lost all vision in the left eye. Right eye vision is stable and unchanged ( slightly blurry at baseline). The patient saw ophthalmology for this and they did note some lesions concerning for tumor invasion vs infection. LP was done on 04/12 which showed only 11 WBC, lymphocytic predominant. Toxoplasma PCR was negative at that time and there was no evidence of malignant cells on cytology. Ophtho has been planning a vitreous biopsy however this has been postponed due to her recent prolonged admission from 04/16 - 04/27. She had a fall on 04/16 and was admitted with left intertrochanteric fracture in addition to diffuse subarachnoid hemorrhages. The patient's reported at that time that she had not been having any fever, chills, or night sweats prior to the fall, but was generally weak. ID was consulted during her most recent hospitalization due to persistent fever. She was placed on broad spectrum antibiotics, antifungals, and antiviral agents. The fever gradually resolved and infectious workup was negative for a specific cause. She was continued on levaquin to total a 10 day course which she completed on 04/29. She did have some delirium during that hospitalization which seemed to improve over the last 3-4 days prior to discharge. Upon discharge to rehab 04/29, there was some concern from the primary rehab team with the CT head, so neurology was consulted and recommended MRI. MRI was done and showed a large enhancing right cerebellar lesion and numerous smaller enhancing lesions with edema surrounding, concerning for opportunistic infection. She was transferred back to acute care and admitted to the bone marrow transplant team. Workup failed to show the reason for her brain lesions. 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 And she was discharged home. Her daughter is with her today. Patient states she feels okay she does not see it all with the left eye the right eye usually is okay but it slightly blurry. She does not have any headache. She denies nausea vomiting. She is gaining some weight. She denies any diarrhea or abdominal pain. She states that her left leg is slightly numb but she does not weakness on the left and right side. Her upper extremities okay. 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 She denies any fever chills or drenching night sweats. She denies any problem taking the antibiotics. She denies any cough or shortness of breath she denies any abdominal pain. She denies any new rash but she has a lot of bruising on the skin. 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) DM2 (diabetes mellitus, type 2) (HCC) HLD (hyperlipidemia) HTN (hypertension) Thyroid disorder Past Surgical History: Procedure Laterality Date SECTION, LOW TRANSVERSE COLONOSCOPY N/A 04/14/2016 COLONOSCOPY BIOPSY performed by Shane Lynn MD at ENDO/GI INTERTROCHANTERIC HIP FRACTURE SURGERY Left FL ESOPHAGOGASTRODUODENOSCOPY TRANSORAL DIAGNOSTIC N/A 09/09/2016 ESOPHAGOGASTRODUODENOSCOPY performed by Hermila Cornejo MD at ENDO/GI FL NASAL/SINUS ENDOSCOPY W/MAXILLARY ANTROSTOMY Left 05/03/2017 FUNCTIONAL ENDOSCOPY SINUS SURGERY WITH MAXILLARY ANTROSTOMY performed by Charlotte Montelongo MD at Main OR/Periop FL PROPH TX N/P/PLTWR W/WO METHYLMETHACRYLATE FEMUR Left 04/19/2017 INSERTION CEPHALOMEDULLARY NAIL FEMUR performed by Shane Sam MD at [facility] OR/ Periop FL SIGMOIDOSCOPY FLX DX W/COLLJ SPEC BR/WA IF PFRMD N/A 04/14/2016 SIGMOIDOSCOPY DIAGNOSTIC performed by Shane Lynn MD at ENDO/GI FL SIGMOIDOSCOPY FLX DX W/COLLJ SPEC BR/WA IF PFRMD N/A 07/29/2016 SIGMOIDOSCOPY DIAGNOSTIC performed by Niharika Lam MD at ENDO/GI FL SIGMOIDOSCOPY FLX DX W/COLLJ SPEC BR/WA IF PFRMD N/A 09/09/2016 SIGMOIDOSCOPY DIAGNOSTIC performed by Hermila Cornejo MD at ENDO/GI FL SIGMOIDOSCOPY FLX W/BIOPSY SINGLE/MULTIPLE 09/09/2016 SIGMOIDOSCOPY BIOPSY performed by Hermila Cornejo MD at ENDO/GI UPPER GASTROINTESTINAL ENDOSCOPY N/A 04/14/2016 ESOPHAGOGASTRODUODENOSCOPY performed by Shane Lynn MD at ENDO/GI UPPER GASTROINTESTINAL ENDOSCOPY N/A 04/14/2016 ESOPHAGOGASTRODUODENOSCOPY BIOPSY performed by Shane Lynn MD at ENDO/GI UPPER GASTROINTESTINAL ENDOSCOPY N/A 07/29/2016 ESOPHAGOGASTRODUODENOSCOPY performed by Niharika Lam MD at ENDO/GI UPPER GASTROINTESTINAL ENDOSCOPY N/A 06/21/2017 ESOPHAGOGASTRODUODENOSCOPY performed by Hermila Cornejo MD at ENDO/GI UPPER GASTROINTESTINAL ENDOSCOPY 06/21/2017 ESOPHAGOGASTRODUODENOSCOPY BIOPSY performed by Hermila Cornejo MD at ENDO/GI Family History Problem Relation Age of Onset Other Mother during Other Father etoh liver Diabetes Sister Diabetes Brother Diabetes Type II Other Hypertension Other Amblyopia Neg Hx Strabismus Neg Hx Blindness Neg Hx Cataract Neg Hx Glaucoma Neg Hx Macular Degen Neg Hx Retinal Detachment Neg Hx Social History Social History Marital status: Spouse name: Armen Number of children: 8 Years of education: N/A 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 acyclovir (ZOVIRAX) 800 mg tablet Take 1 Tab by mouth twice daily. BECLOMETHASONE DIPROPIONATE (BECLOMETHASONE(#) IN CORN OIL) 2 mg/mL Take 1 mL by mouth four times daily. For appetite. benzonatate (TESSALON PERLES) 100 mg capsule Take 1 capsule by mouth every 8 hours as needed for Cough. blood sugar diagnostic (ONETOUCH VERIO) test strip 1 Strip before meals and at bedtime. Blood-Glucose Meter misc One Touch Verio meter [...] type 2 diabetes mellitus, E 11.9 Insulin [place] (Disposable) 31 gauge x 1/4" ndle Use as needed for insulin administration before meals and at bedtime. lancets (ACCU-CHEK FASTCLIX) MIS To check blood sugars before meals and at bed time. leucovorin 25 mg tab Take 1 tablet by mouth daily for 30 days. levothyroxine (SYNTHROID) 50 mcg tablet Take 1 Tab by mouth daily 30 minutes before breakfast. magnesium oxide (MAG-OX) 400 mg tablet Take 400 mg by mouth. mineral oil/white petrolatum (ABSORBASE) oint apply to hands and affected areas as needed bzqbeagw-knsqefbfs-hfldzjpbiutlv (MAXITROL) 3.5 mg/g-10,000 unit/g-0.1 % ophthalmic ointment Apply 1 cm to left eye as directed twice daily. omeprazole DR(+) (PRILOSEC) 20 mg capsule Take 1 capsule by mouth daily before breakfast. penicillin V potassium (VEETID) 250 mg tablet Take 3 tabs by mouth twice daily. posaconazole EC (NOXAFIL) 100 mg tablet Take 4 Tabs by mouth daily with breakfast. potassium chloride(+) (MICRO-K) 10 mEq capsule Take 2 capsules by mouth twice daily. Take with a meal and a full glass of water. pyrimethamine (DARAPRIM) 25 mg tablet Take 1 tablet by mouth daily. sulfADIAZINE 500 mg tablet Take 2 tablets by mouth twice daily. Vitals: 06/28/17 0941 BP: 132/72 Pulse: 72 Resp: 12 Temp: 36.7 C (98.1 F) TempSrc: Oral Weight: 56.8 kg (125 lb 3.2 oz) Height: 165.1 cm (65") Body mass index is 20.83 kg/(m^2). Physical Exam General appearance:Alert, oriented. NAD. Appears older than stated age. HENT: Mucus membranes moist Eyes: Conj nl. Left pupil nonreactive. Neck: Supple, no rigidity, no adenopathy Lungs:No wheezing, rhonchi, or crackles appreciated. Nonlabored. Heart: Regular rhythm, reg rate, + systolicmurmur unchanged, no peripheral edema Abdomen:Soft, non-tender, non-distended, normoactive bowel sounds Ext:No clubbing, cyanosis or edema Skin: Bruising over the left face resolving. No rashes or jaundice. Assessment and Plan: Right cerebellar enhancing lesion and numerous smaller enhancing lesions with some associated edema, concern for opportunistic infection (MRI 04/29) Recent subarachnoid hemorrhages Left eye panuveitis with vision loss x ~ 2 months Fever - unknown etiology during last admission, resolved - Prior infectious workup earlier this month - RVP negative 04/17 - CMV PCR negative 04/17 - Legionella urine antigen negative 04/17 - Urine culture negative 04/17 - Bronch done 04/17, lower respiratory cultures with normal chester - LP done by IR on 04/12 with 11 WBC , 94% lymphocytes, protein 68, glucose 70 - Toxoplasma CSF PCR negative 04/12 - CSF culture negative 04/12 - Crypto serum Ag negative 04/20 - Galactomannan negative 04/19 - Fungitell negative 04/19 - Histo, crypto, coccidioides workup negative 04/20 - 04/18 staph epidermidis + blood culture, contaminant - Workup this admission: - Toxoplasma IgG positive 05/01 - Cryptococcal serum Ag negative - Fungitell negative 05/01 - Galactomannan 05/01 0.039 - CT chest/ab/pelvis 05/01 borderline vascular congestion patchy groundglass opacity suggesting volume overload. Atypical infectious etiology considered less likely. Mild splenomegaly. - CT sinus 05/01 right mastoiditis. Mild maxillary sinus disease greater on the left. Small periapical abscess involving left maxillary premolar. Stable enhancing right cerebellar lesion. - S/p left maxillary sinus biopsy 05/03 by ENT S/p admission earlier this month, discharged 04/27 to rehab Left intertrochanteric femur fracture s/p cephalomedullary nailing 04/19 Diffuse subarachnoid hemorrhages - CT scans earlier in the month without any evidence of infection Admission 02/2017 with S. 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 I reviewed her labs and her counts remain low with low neutrophil count also. Her creatinine is stable She has had treatment for 7 weeks now so we will go ahead and cut the treatment down to maintenance treatment we would give her sulfadiazine 1000 mg twice a day and pyrimethamine 25 mg daily and leucovorin 25 mg daily we will plan to treat her for at least 6 months to 1 year but most likely she will need to stay on this for life as long as her white count is not normal for the prevention of toxoplasma reactivation. We will ask for repeat MRI in about 2 months and I will see her back in about 6 months or so. Continue to do blood work routinely as per BMT team Complexity of medical decision making is high due to the multi-system nature of the infectious disease process with concerns including but not limited to complexity of the patient's underlying illnesses, the identification and sensitivities of the organisms being treated, the potential for antimicrobial toxicities and drug-drug interactions, concerns regarding immunologic function, and interplay of other issues. Immunosuppressed patient pancytopenia toxoplasma encephalitis and endophthalmitis. 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
--- OUTSIDE RECORDS SUMMARY | 2017-07-30 03:55 | XMS REPORT | Encounter Summary ---
Author Author [facility] Organization [facility] Address Unknown Phone Unavailable Care Team Providers Care Equal Opportunity Specialist Name Role Phone PCP Unavailable Reason for Visit * Reason Comments Eye Problem 7 week FUV. HX Vitritis OS Vision Change Pt states vision has been stable in OS since last seen, sometimes feels anxious that she cannot see through that eye Eye Pain Pt denies eye pain Spots and/or Floaters Pt denies any floaters Diabetes A1c: unknown. BS average: 160-180 Medication Update Pt is not using any eye drops, only using cream BID OS FYI OCT OS - unable Encounter Details Date Type Department Care Team Description 07/07/2017 Office Visit [facility] Uriel Wall MD Panuveitis of left eye Physicians - [address] Ophthalmology [address] [place] [address] [address] [place] [address] Social History Tobacco Use Types Packs/Day Years Used Date Never Smoker Smokeless Tobacco: Never Used Alcohol Use Drinks/Week oz/Week Comments No 0 Standard 0.0 drinks or equivalent Sex Assigned at Date Recorded Not on file as of this encounter Last Filed Vital Signs Vital Sign Reading Time Taken Blood Pressure - - Pulse - - Temperature - - Respiratory Rate - - Oxygen Saturation - - Inhaled Oxygen - - Concentration Weight 56.7 kg (125 lb) 07/07/2017 2:49 PM CDT Height 165.1 cm (5' 5") 07/07/2017 2:49 PM CDT Body Mass Index 20.8 07/07/2017 2:49 PM CDT in this encounter Functional Status [...] as of this encounter Progress Notes * Uriel Wall MD - 07/07/2017 2:45 PM CDT Formatting of this note may be different from the original. Body mass index is 20.8 kg/(m^2). Assessment and Plan: 1. Vitritis, OS - Unknown etiology - Quiet now with new and old vit heme - Pt not using any drops - Workup w/ heme/onc and ID negative - Brain lesions on MRI improved on toxo treatment - ID and heme/onc following and planning to continue sulfadiazine 1000 mg twice a day and pyrimethamine 25 mg daily and leucovorin 25 mg daily and repeat MRI in August. - RTC in 3 months or earlier if any changes. 2. Monocular Status, OD - Discussed importance of polycarbonate safety eyewear at all times. 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 Rec. Continued toxo treatment. F/U 6 weeks Ophthal. ATTESTATION I personally performed the omalley portions of the E/M visit, discussed case with resident and concur with resident documentation of history, physical exam, assessment, and treatment plan unless otherwise noted. Staff name: Uriel Wall MD Date: 07/07/2017 in this encounter Plan of Treatment Date Type Specialty Care Team Description 06/28/2017 Procedure Pass Infectious Diseases as of this encounter Visit Diagnoses Diagnosis Panuveitis of left eye Panuveitis in this encounter
--- OUTSIDE RECORDS SUMMARY | 2017-07-30 03:55 | XMS REPORT | Encounter Summary ---
Author Author [facility] Organization [facility] Address Unknown Phone Unavailable Care Team Providers Care Farm Crops Teacher Name Role Phone PCP Unavailable Reason for Visit * Reason Comments Heme/Onc Care Encounter Details Date Type Department Care Team Description 06/30/2017 Nurse Only [facility] Annalee Virk MD 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 [address] [address] [facility] [address] remission ([facility]);S/P [address] allogeneic bone marrow [address] [place] [address] transplant ([facility]) [place] [address] [phone] Social History Tobacco Use Types Packs/Day Years [...] Diseases as of this encounter Results * CMV QUANT PCR-BLOOD (06/30/2017 2:37 PM) Component Value Ref Range IU/mL CMV Blood [...] NOT DETECTED [IU]/mL Specimen Performing Laboratory Blood [facility] [address] [place] [address] * MAGNESIUM (06/30/2017 2:37 PM) Component Value Ref Range Magnesium 1.3 (L) 1.6 - 2.6 mg/dL Specimen Performing Laboratory Blood [facility] [address] [place] [address] * COMPREHENSIVE METABOLIC PANEL (06/30/2017 2:37 PM) Component Value Ref Range Sodium 133 (L) 137 - 147 MMOL/L Potassium 4.4 3.5 - 5.1 MMOL/L Chloride 108 98 - 110 MMOL/L Glucose 164 (H) 70 - 100 MG/DL Blood Urea Nitrogen 38 (H) 7 - 25 MG/DL Creatinine 1.23 (H) 0.4 - 1.00 MG/DL Calcium 9.2 8.5 - 10.6 MG/DL Total Protein 5.1 (L) 6.0 - 8.0 G/DL Total Bilirubin 0.4 0.3 - 1.2 MG/DL Albumin 3.0 (L) 3.5 - 5.0 G/DL Alk Phosphatase 162 (H) 25 - 110 U/L AST (SGOT) 50 (H) 7 - 40 U/L CO2 21 21 - 30 MMOL/L ALT (SGPT) 63 (H) 7 - 56 U/L Anion Gap 4 3 - 12 eGFR Non 45 (L) >60 mL/min Comment: The eGFR is not validated for use in drug dosing adjustments. Continue to use estimated creatinine clearance per dosing reference text. Please contact the Clinical Pharmacist for questions. eGFR 54 (L) >60 mL/min Comment: The eGFR is not validated for use in drug dosing adjustments. Continue to use estimated creatinine clearance per dosing reference text. Please contact the Clinical Pharmacist for questions. Specimen Performing Laboratory Blood [facility] [address] [place] [address] * CBC AND DIFF (06/30/2017 2:37 PM) Component Value Ref Range White Blood Cells 4.8 4.5 - 11.0 K/UL RBC 2.65 (L) 4.0 - 5.0 M/UL Hemoglobin 10.5 (L) 12.0 - 15.0 GM/DL Hematocrit 30.3 (L) 36 - 45 % MCV 114.7 (H) 80 - 100 FL MCH 39.5 (H) 26 - 34 PG MCHC 34.5 32.0 - 36.0 G/DL RDW 15.2 (H) 11 - 15 % Platelet Count 68 (L) 150 - 400 K/UL MPV 8.5 7 - 11 FL Segmented Neutrophils 37 (L) 41 - 77 % Bands 3 0 - 10 % Lymphocytes 43 24 - 44 % Monocytes 13 (H) 4 - 12 % Metamyelocyte 1 % Myelocyte 3 % ANISO PRESENT POIK PRESENT MACRO PRESENT Platelet Estimate MOD DEC Absolute Neutrophil Count 1.92 1.8 - 7.0 K/UL Manual Specimen Performing Laboratory Blood [facility] [address] [place] [address] in this encounter Visit Diagnoses Diagnosis 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HCC) Bone marrow replaced by transplant in this encounter
--- OUTSIDE RECORDS SUMMARY | 2017-07-30 03:55 | XMS REPORT | Encounter Summary ---
Author Author [facility] Organization [facility] Address Unknown Phone Unavailable Care Team Providers Care Flare Maker Name Role Phone PCP Unavailable Reason for Visit * Reason Comments Heme/Onc Care Encounter Details Date Type Department Care Team Description 07/09/2017 Office Visit [facility] Luis Moody MD 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 [address] remission (HCC) (Primary [address] [place] [address] Dx);Blindness of left eye [address] [place] [address] [place] [address] contralateral eye;H/O [phone] bone marrow transplant (HCC);Steroid myopathy;Cough Social History Tobacco Use Types Packs/Day Years Used Date Never Smoker Smokeless Tobacco: Never Used Alcohol Use Drinks/Week oz/Week Comments No 0 Standard 0.0 drinks or equivalent Sex Assigned at Date Recorded Not on file as of this encounter Last Filed Vital Signs Vital Sign Reading Time Taken Blood Pressure 182/71 07/09/2017 12:48 PM CDT Pulse 56 07/09/2017 12:48 PM CDT Temperature 36.6 C (97.9 F) 07/09/2017 12:48 PM CDT Respiratory Rate 14 07/09/2017 12:48 PM CDT Oxygen Saturation 100% 07/09/2017 12:48 PM CDT Inhaled Oxygen - - Concentration Weight 58.6 kg (129 lb 3.2 oz) 07/09/2017 12:48 PM CDT Height 166.6 cm (5' 5.59") 07/09/2017 12:48 PM CDT Body Mass Index 21.11 07/09/2017 12:48 PM CDT in this encounter Functional Status [...] Progress Notes * Kandi Branham RN - 07/09/2017 1:10 PM CDT Date of Transplant: 03/02/16 CD34 Selected boost 07/08/2016 Preparative Regimen: Fludarabine/Melphalan Fully ablative/reduced intensity/NST: KAYLEE Disease: AML (from CMUTL) Disease status at transplant: 1st CR Cytogenetic/Fish AT DIAGNOSIS: HLA Match: 8:8 Donor & Cell source: matched sib (sister) [id number] PSC CMV: both POS ABO: both O [...] LTFU Orders placed for 03/02/2018. labs, BMBX 07/09: Discontinuing corn oil today. Posaconazole discontinued today because of approval by DR. Davian DOLL. Blood pressure elevated today 174/78 and recheck was 182/71. Will restart blood pressure medication norvasc at 10 mg Q day. Side effects of medication BLE swelling review Stopping potassium today. Patient reporting cough, non-productive, that occurs when she lies flat, afebrile. Will get 2 view chest xray today. Adding IGG level to next week. Due to language barrier, an hotel or motel manager was present during the history-taking and subsequent discussion (and for part of the physical exam) with this patient. Chairman mode: In person Chairman/ ID Number: Ant RTC (cbc,cmp,mag,vre, igg) 07/16 MD Carri 08/30 MRI head 09/20baron Callejas follow up left hip 12/13 Dr. Marcelo. * Luis Moody MD - 07/09/2017 1:10 PM CDT Formatting of this note may be different from the original. Date of Service: 07/09/2017 Subjective: S/p Flu/Hermila conditioning followed by MSD transplant, currently 16 months Appetite better since starting B/B, tapering off corn oil S/p EGD for dysphagia which showed erythematous mucosa/small non bleeding ulcers Swallow study neg Seen by Dr. Sam (orho) and Dr. Christine (ID) Mood improved History of Present Illness Patient [...] Donor & Cell source: matched sib (sister) [id number] PSC CMV: both POS ABO: both O POS Consents/Studies: 8322, blood, H&P, KAYLEE Flu/Hermila allo consent Coordinator: RUDDY MCKINNON RN Donna Wilde is a 61 y.o. female with a PMH of DM, HTN and HLD who presented from [facility] ED with a leukocytosis concerning for Leukemia. Per her daughter, in early December 2014 she developed a chronic cough which was unremitting. She then presented to due to [facility] ED with complains of weakness, fatigue [...] placed on hydrea and referred to Dr. sÓcar Jones in [place], hydrea was DC due to thrombocytopenia. She [...] Negative for congestion. Eyes: Positive for visual disturbance (Cannot see from left eye and right is also blurry). Cardiovascular: Positive for leg swelling. Gastrointestinal: Positive for diarrhea (Soft stool). Negative for nausea. Endocrine: Negative for cold intolerance. Genitourinary: Negative for dysuria and hematuria. Musculoskeletal: Positive for arthralgias. Skin: Positive for pallor. Negative for rash. Allergic/Immunologic: Positive for immunocompromised state. Neurological: Positive for weakness. Hematological: Bruises/bleeds easily. Psychiatric/Behavioral: The patient is not nervous/anxious. [...] Social HX: . Pt is originally from [place] and is faroese speaking only. She has been living in [facility] [place] for the past 15 years however she [...] type 2 diabetes mellitus, E 11.9 Insulin [place] (Disposable) 31 gauge x 1/4" ndle Use as needed for insulin administration before meals and at bedtime. lancets (ACCU-CHEK FASTCLIX) MISC To check blood sugars before meals and at bed time. leucovorin 25 mg tab Take 1 tablet by mouth daily for 30 days. levothyroxine (SYNTHROID) 50 mcg tablet Take 1 Tab by mouth daily 30 minutes before breakfast. magnesium oxide (MAG-OX) 400 mg tablet Take 400 mg by mouth. mineral oil/white petrolatum (ABSORBASE) oint apply to hands and affected areas as needed sxngjipb-qemjjvqra-bmczlwhgqqgqg (MAXITROL) 3.5 mg/g-10,000 unit/g-0.1 % ophthalmic ointment Apply 1 cm to left eye as directed twice daily. omeprazole DR(+) (PRILOSEC) 20 mg capsule Take 1 capsule by mouth twice daily. penicillin V potassium (VEETID) 250 mg tablet Take 3 tabs by mouth twice daily. potassium chloride(+) (MICRO-K) 10 mEq capsule Take 2 capsules by mouth twice daily. Take with a meal and a full glass of water. pyrimethamine (DARAPRIM) 25 mg tablet Take 1 tablet by mouth daily. sulfADIAZINE 500 mg tablet Take 2 tablets by mouth twice daily. Vitals: 07/09/17 1248 BP: 182/71 Pulse: 56 Resp: 14 Temp: 36.6 C (97.9 F) TempSrc: Oral SpO2: 100% Weight: 58.6 kg (129 lb 3.2 oz) Height: 166.6 cm (65.59") Body mass index is 21.11 kg/(m^2). Vitals, BMI noted and reviewed Pain [...] Results Component Value Date/Time NA 135 (L) 07/09/2017 12:41 PM K 5.0 07/09/2017 12:41 PM CL 108 07/09/2017 12:41 PM CO2 24 07/09/2017 12:41 PM GAP 3 07/09/2017 12:41 PM BUN 50 (H) 07/09/2017 12:41 PM CR 1.10 (H) 07/09/2017 12:41 PM GLU 177 (H) 07/09/2017 12:41 PM Lab Results Component Value Date/Time CA 10.0 07/09/2017 12:41 PM PO4 3.9 05/04/2017 06:46 AM ALBUMIN 3.4 (L) 07/09/2017 12:41 PM TOTPROT 5.5 (L) 07/09/2017 12:41 PM ALKPHOS 152 (H) 07/09/2017 12:41 PM AST 40 07/09/2017 12:41 PM ALT 75 (H) 07/09/2017 12:41 PM TOTBILI 0.4 07/09/2017 12:41 PM GFR 51 (L) 07/09/2017 12:41 PM GFRAA >60 07/09/2017 12:41 PM CBC w/Diff Lab Results Component Value Date/Time WBC 3.6 (L) 07/09/2017 12:41 PM RBC 2.74 (L) 07/09/2017 12:41 PM HGB 11.0 (L) 07/09/2017 12:41 PM HCT 31.7 (L) 07/09/2017 12:41 PM MCV 115.8 (H) 07/09/2017 12:41 PM MCH 40.0 (H) 07/09/2017 12:41 PM MCHC 34.6 07/09/2017 12:41 PM RDW 15.3 (H) 07/09/2017 12:41 PM PLTCT 73 (L) 07/09/2017 12:41 PM MPV 8.1 07/09/2017 12:41 PM Lab Results Component Value Date/Time NEUT 52 07/09/2017 12:41 PM ANC 1.90 07/09/2017 12:41 PM LYMA 34 07/09/2017 12:41 PM ALC 1.20 07/09/2017 12:41 PM BRUCE 14 (H) 07/09/2017 12:41 PM AMC 0.50 07/09/2017 12:41 PM EOSA 0 07/09/2017 12:41 PM AEC 0.00 07/09/2017 12:41 PM BASA 0 07/09/2017 12:41 PM ABC 0.00 07/09/2017 12:41 PM Assessment and Plan: Primary Diagnosis: - 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 ANC 1900 07/09/17 CHEF BROILER OR FRY: -Brain lesion on MRI 04/29: concerning for infection or malignancy. "Enhancing nodular medial right cerebellar lesion and numerous additional smaller enhancing juxtacortical bilateral cerebral, basal nuclei, and brainstem lesions with mild associated multifocal vasogenic edema likely reflecting leukemia. Opportunistic intracranial infection could appear similar. -No prior history of CHEF BROILER OR FRY malignancy. LP 05/03/17 did not show evidence of leukemia. -CT Sinus05/01 with right maxillary mass, s/p: Bx, cultures and path negative -ID consulted,Toxoplasma IgG positive, started on anti-toxo: sulfadiazine 1000mg PO four times daily, pyrimethamine, leucovorin 25mg MRI scan on 05/26/17 1. Decrease in size and number of multiple cerebral and cerebellar enhancing lesions. Differential considerations include improvement in CHEF BROILER OR FRY leukemia or CHEF BROILER OR FRY infection. 2. Resolution of the left subdural [...] follow up with Optho Cardiac: Essential Hypertension, not controlled. Will start Amlodipine 10 mg daily. Monitor leg edema FEN/Renal: -Cr improved encouraged fluids - Replace per BMT replacement protocol. Stop PO KCl. ID: Prophylasis: Pen VK (Sulfadiazine does not cover pneumococcus adequately), Acyclovir Please see CHEF BROILER OR FRY section for toxo therapy Last CD4 count [...] [facility]-seen and stable 07/09 Dexa scan, Endo-Done and pending Luis Moody MD hemodialysis lab technician Blood and Marrow Transplantation [facility] in this encounter Plan of Treatment Date Type Specialty Care Team Description 06/28/2017 Procedure Pass Infectious Diseases as of this encounter Results * IMMUNOGLOBULIN G (IGG) (07/16/2017 11:55 AM) Component Value Ref Range IgG 442 (L) 762 - 1488 MG/DL Specimen Performing Laboratory Blood [facility] [address] [place] [address] * MAGNESIUM (07/16/2017 11:55 AM) Component Value Ref Range Magnesium 2.0 1.6 - 2.6 mg/dL Specimen Performing Laboratory Blood [facility] [address] [place] [address] * COMPREHENSIVE METABOLIC PANEL (07/16/2017 11:55 AM) [...] Pharmacist for questions. 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
--- OUTSIDE RECORDS SUMMARY | 2017-07-30 03:55 | XMS REPORT | Encounter Summary ---
Author Author [facility] Organization [facility] Address Unknown Phone Unavailable Care Team Providers Care Blister Pack Operator Name Role Phone PCP Unavailable Reason for Visit * Reason Comments Heme/Onc Care Encounter Details Date Type Department Care Team Description 06/30/2017 Office Visit [facility] Annalee Virk MD H/O stem cell transplant Cancer Center - BMT Exam [address] [facility] [address] [facility] (Primary Dx) [address] [place] [address] [place] [id number] [phone] Social History Tobacco Use Types Packs/Day Years Used Date Never Smoker Smokeless Tobacco: Never Used Alcohol Use Drinks/Week oz/Week Comments No 0 Standard 0.0 drinks or equivalent Sex Assigned at Date Recorded Not on file as of this encounter Last Filed Vital Signs Vital Sign Reading Time Taken Blood Pressure 136/58 06/30/2017 2:46 PM CDT Pulse 62 06/30/2017 2:46 PM CDT Temperature 36.7 C (98 F) 06/30/2017 2:46 PM CDT Respiratory Rate 14 06/30/2017 2:46 PM CDT Oxygen Saturation 99% 06/30/2017 2:46 PM CDT Inhaled Oxygen - - Concentration Weight 57.3 kg (126 lb 6.4 oz) 06/30/2017 2:46 PM CDT Height 165.1 cm (5' 5") 06/30/2017 2:46 PM CDT Body Mass Index 21.03 06/30/2017 2:46 PM CDT in this encounter Functional Status [...] Progress Notes * Kandi Branham RN - 06/30/2017 3:30 PM CDT Date of Transplant: 03/02/16 CD34 Selected boost 07/08/2016 Preparative Regimen: Fludarabine/Melphalan Fully ablative/reduced intensity/NST: KAYLEE Disease: AML (from CMMOL) Disease status at transplant: 1st CR Cytogenetic/Fish AT DIAGNOSIS: HLA Match: 8:8 Donor & Cell source: matched sib (sister) [id number] PSC CMV: both POS ABO: both O POS Consents/Studies: 8322, blood, H&P, KAYLEE Flu/Hermila allo consent Coordinator: RUDDY MCKINNON RN CMV monitoring: Completed 06/30 pending EBV monitoring: N/A Chimerism results: 11/09/16 - 100% donor Transfusion parameters: Standard Electrolyte replacement goal: Standard GVHD location: GI Current GVHD treatment: B&B Tapers: (prednisone completed 11/16/16) PJP: Last prednisone Oct 2016, no PJP needed. Central line: none LTFU Orders placed for 03/02/2018. labs, BMBX 06/30: MRI of the Head is scheduled in 7 weeks, in August [address] Marcelo Magnesium low today. Patient reports stopping oral magnesium three days ago. Will restart at 400 mg Q day. Decreased [place] oil to once daily, increasing prilosec to BID per EGD procedure results. Flu shot today given last week RTC (cbc,cmp,mag,vre) 07/07: [facility] 07/09 Dexa scan, Endo 08/30 MRI head 09/20Dr. Sam, ortho follow up left hip 12/13 Dr. Marcelo. * Annalee Virk MD - 06/30/2017 3:30 PM CDT Formatting of this note may be different from the original. Date of Service: 06/30/2017 Subjective: S/p Flu/Hermila conditioning followed by MSD transplant, currently 15 months Appetite better since starting B/B, tapering [...] Donor & Cell source: matched sib (sister) [id number] PSC CMV: both POS ABO: both O POS Consents/Studies: 8322, blood, H&P, KAYLEE Flu/Hermila allo consent Coordinator: RUDDY MCKINNON RN Donna Wilde is a 61 y.o. female with a PMH of DM, HTN and HLD who presented from [facility] ED with a leukocytosis concerning for Leukemia. Per her daughter, in early December 2014 she developed a chronic cough which was unremitting. She then presented to due to [facility] ED with complains of weakness, fatigue [...] and referred to Dr. Óscar Jones in [place], hydrea was DC due to thrombocytopenia. She [...] fall. Review of Systems Constitutional: Fatigue, thin build HENT: Dysphagia resolving [...] Social HX: . Pt is originally from [place] and is azeri speaking only. She has been living in [facility] for the past 15 years however she migrated to the in the . She has 8 children and 6 siblings No Known Allergies Objective: acetaminophen (TYLENOL) 325 mg tablet Take 2 Tabs by mouth every 4 hours as needed. acyclovir (ZOVIRAX) 800 mg tablet Take 1 Tab by mouth twice daily. BECLOMETHASONE DIPROPIONATE (BECLOMETHASONE(#) IN CORN OIL) 2 mg/mL Once daily to increase appetite. benzonatate (TESSALON PERLES) 100 mg capsule [...] type 2 diabetes mellitus, E 11.9 Insulin [place] (Disposable) 31 gauge x 1/4" ndle Use as needed for insulin administration before meals and at bedtime. lancets (ACCU-CHEK FASTCLIX) [facility] To check blood sugars before meals and at bed time. leucovorin 25 mg tab Take 1 tablet by mouth daily for 30 days. levothyroxine (SYNTHROID) 50 mcg tablet Take 1 Tab by mouth daily 30 minutes before breakfast. magnesium oxide (MAG-OX) 400 mg tablet Take 400 mg by mouth. mineral oil/white petrolatum (ABSORBASE) oint apply to hands and affected areas as needed ofigcclx-jppyzzcae-cdrifzrpyxphn (MAXITROL) 3.5 mg/g-10,000 unit/g-0.1 % ophthalmic ointment [...] 2 tablets by mouth twice daily. Vitals: 06/30/17 1446 BP: 136/58 Pulse: 62 Resp: 14 Temp: 36.7 C (98 F) TempSrc: Oral SpO2: 99% Weight: 57.3 kg (126 lb 6.4 oz) Height: 165.1 cm (65") Body mass index is 21.03 kg/(m^2). Vitals, BMI noted and reviewed Pain [...] and dry. No rash noted. No pallor. Psychiatric: She has a normal mood and affect. Her behavior is normal. Nursing note and vitals reviewed. Comprehensive Metabolic Profile Lab Results Component Value Date/Time NA 133 (L) 06/30/2017 02:37 PM K 4.4 06/30/2017 02:37 PM CL 108 06/30/2017 02:37 PM CO2 21 06/30/2017 02:37 PM GAP 4 06/30/2017 02:37 PM BUN 38 (H) 06/30/2017 02:37 PM CR 1.23 (H) 06/30/2017 02:37 PM GLU 164 (H) 06/30/2017 02:37 PM Lab Results Component Value Date/Time CA 9.2 06/30/2017 02:37 PM PO4 3.9 05/04/2017 06:46 AM ALBUMIN 3.0 (L) 06/30/2017 02:37 PM TOTPROT 5.1 (L) 06/30/2017 02:37 PM ALKPHOS 162 (H) 06/30/2017 02:37 PM AST 50 (H) 06/30/2017 02:37 PM ALT 63 (H) 06/30/2017 02:37 PM TOTBILI 0.4 06/30/2017 02:37 PM GFR 45 (L) 06/30/2017 02:37 PM GFRAA 54 (L) 06/30/2017 02:37 PM CBC w/Diff Lab Results Component Value Date/Time WBC 4.8 06/30/2017 02:37 PM RBC 2.65 (L) 06/30/2017 02:37 PM HGB 10.5 (L) 06/30/2017 02:37 PM HCT 30.3 (L) 06/30/2017 02:37 PM MCV 114.7 (H) 06/30/2017 02:37 PM MCH 39.5 (H) 06/30/2017 02:37 PM MCHC 34.5 06/30/2017 02:37 PM RDW 15.2 (H) 06/30/2017 02:37 PM PLTCT 68 (L) 06/30/2017 02:37 PM MPV 8.5 06/30/2017 02:37 PM Lab Results Component Value Date/Time NEUT 20 (L) 06/24/2017 02:57 PM ANC 1.92 06/30/2017 02:37 PM ANC 0.50 (L) 06/24/2017 02:57 PM LYMA 64 (H) 06/24/2017 02:57 PM ALC 1.70 06/24/2017 02:57 PM BRUCE 16 (H) 06/24/2017 02:57 PM AMC 0.50 06/24/2017 02:57 PM EOSA 0 06/24/2017 02:57 PM AEC 0.00 06/24/2017 02:57 PM BASA 0 06/24/2017 02:57 PM ABC 0.00 06/24/2017 02:57 PM Assessment and Plan: Primary Diagnosis: - 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 "Enhancing nodular medial right cerebellar lesion and numerous additional smaller enhancing juxtacortical bilateral cerebral, basal nuclei, and brainstem lesions with mild associated multifocal vasogenic edema likely reflecting leukemia. Opportunistic intracranial infection could appear similar. -No prior history of CUTTER HELPER malignancy. LP 05/03/17 did not show evidence of leukemia. -CT Sinus05/01 with right maxillary mass, s/p: Bx, cultures and path negative -ID consulted,Toxoplasma IgG positive, started on anti-toxo: sulfadiazine 1000mg PO four times daily, pyrimethamine, leucovorin 25mg MRI scan on 05/26/17 1. Decrease in size and number of multiple cerebral and cerebellar enhancing lesions. Differential considerations include improvement in CUTTER HELPER leukemia or CUTTER HELPER infection. 2. Resolution of the left subdural [...] likely lifetime with her persistent poor counts Rpr MRI in 2 months 3. Neuro/MSK: - S/p fall at home [...] follow up with Optho Cardiac: Essential Hypertension, well controlled FEN/Renal: -Cr improved encouraged fluids - Replace per BMT replacement protocol ID: Prophylasis: PenVK, Acyclovir Please see CUTTER HELPER section for toxo therapy Last CD4 count above 300 in February 2017 GI:Had dysphagia, swallow study neg and EGD pertinent for erythematous mucosa/small non bleeding ulcers Has GERD, will increase PPI to BID Dyphagia improving Improved appetite, since starting B/B 06/02, OK to DC corn oil LFT slightly up, will monitor, may consider ursodiol Endo: BG management by endocrine, Hypothyroid on Synthroid Psych: Low dose klonopin at bedtime, mood better GvHD Staging/Grading: Chronic GvHD presentoral lichen planus, on diphon rinse, resolved RTC Weekly 07/07: [facility] 07/09 Dexa scan, Endo in this encounter Plan of Treatment Date Type Specialty Care Team Description 06/28/2017 Procedure Pass Infectious Diseases as of this encounter Results * MAGNESIUM (07/09/2017 12:41 PM) Component Value Ref Range Magnesium 2.1 1.6 - 2.6 mg/dL Specimen Performing Laboratory Blood [facility] [address] [place] [address] * COMPREHENSIVE METABOLIC PANEL (07/09/2017 12:41 PM) Component Value Ref Range Sodium 135 (L) 137 - 147 MMOL/L Potassium 5.0 3.5 - 5.1 MMOL/L Chloride 108 98 - 110 MMOL/L Glucose 177 (H) 70 - 100 MG/DL Blood Urea Nitrogen 50 (H) 7 - 25 MG/DL Creatinine 1.10 (H) 0.4 - 1.00 MG/DL Calcium 10.0 8.5 - 10.6 MG/DL Total Protein 5.5 (L) 6.0 - 8.0 G/DL Total Bilirubin 0.4 0.3 - 1.2 MG/DL Albumin 3.4 (L) 3.5 - 5.0 G/DL Alk Phosphatase 152 (H) 25 - 110 U/L AST (SGOT) 40 7 - 40 U/L CO2 24 21 - 30 MMOL/L ALT (SGPT) 75 (H) 7 - 56 U/L Anion Gap 3 3 - 12 eGFR Non 51 (L) >60 mL/min Comment: The eGFR is [...] Pharmacist for questions. Specimen Performing Laboratory Blood [facility] [address] [place] [address] * CBC AND DIFF (07/09/2017 12:41 PM) Component Value Ref Range White Blood Cells 3.6 (L) 4.5 - 11.0 K/UL RBC 2.74 (L) 4.0 - 5.0 M/UL Hemoglobin 11.0 (L) 12.0 - 15.0 GM/DL Hematocrit 31.7 (L) 36 - 45 % MCV 115.8 (H) 80 - 100 FL MCH 40.0 (H) 26 - 34 PG MCHC 34.6 32.0 - 36.0 G/DL RDW 15.3 (H) 11 - 15 % Platelet Count 73 (L) 150 - 400 K/UL MPV 8.1 7 - 11 FL Neutrophils 52 41 - 77 % Lymphocytes 34 24 - 44 % Monocytes 14 (H) 4 - 12 % Eosinophils 0 0 - 5 % Basophils 0 0 - 2 % Absolute Neutrophil Count 1.90 1.8 - 7.0 K/UL Absolute Lymph Count 1.20 1.0 - 4.8 K/UL Absolute Monocyte Count 0.50 0 - 0.80 K/UL Absolute Eosinophil Count 0.00 0 - 0.45 K/UL Absolute Basophil Count 0.00 0 - 0.20 K/UL Specimen Performing Laboratory Blood [facility] [address] [place] [address] in this encounter Visit Diagnoses Diagnosis H/O stem cell transplant (HCC) - Primary Peripheral stem cells replaced by transplant in this encounter
--- OUTSIDE RECORDS SUMMARY | 2017-07-30 03:55 | XMS REPORT | Encounter Summary ---
Author Author [facility] Organization [facility] Address Unknown Phone Unavailable Care Team Providers Care Catering Staff Member Name Role Phone PCP Unavailable Reason for Visit * Reason Comments Heme/Onc Care Encounter Details Date Type Department Care Team Description 07/09/2017 Nurse Only [facility] Luis Moody MD H/O stem cell transplant Cancer Center - BMT Exam [address] (HCC);Acquired [address] [place] [address] hypothyroidism;Hypovitami [address] [place] [address] nosis D;Type 2 [place] [address] mellitus with [phone] complication, with long-term current use of insulin ([facility]) Social History Tobacco Use Types Packs/Day Years [...] Diseases as of this encounter Results * FREE T4 (FREE THYROXINE) ONLY (07/09/2017 12:41 PM) Component Value Ref Range T4-Free 0.6 0.6 - 1.6 NG/DL Specimen Performing Laboratory Blood [facility] [address] [place] [address] * THYROID STIMULATING HORMONE-TSH (07/09/2017 12:41 PM) Component Value Ref Range TSH 7.642 (H) 0.35 - 5.00 MCU/ML Specimen Performing Laboratory Blood [facility] [address] [place] [address] * 25-OH VITAMIN D (D2 + D3) (07/09/2017 12:41 PM) Component Value Ref Range Vitamin D(25-OH)Total 18.3 (L) 30 - 80 NG/ML Specimen Performing Laboratory Blood [facility] [address] [place] [address] * MAGNESIUM (07/09/2017 12:41 PM) Component Value Ref Range Magnesium 2.1 1.6 - 2.6 mg/dL Specimen Performing Laboratory Blood [facility] [address] [place] [address] * COMPREHENSIVE METABOLIC PANEL (07/09/2017 12:41 PM) [...] Pharmacist for questions. Specimen Performing Laboratory Blood [facility] [address] [place] [address] * CBC AND DIFF (07/09/2017 12:41 PM) [...] - 0.20 K/UL Specimen Performing Laboratory Blood [facility] [address] [place] [address] in this encounter Visit Diagnoses Diagnosis H/O stem cell transplant (HCC) Peripheral stem cells replaced by transplant Acquired hypothyroidism Unspecified hypothyroidism Hypovitaminosis D Unspecified vitamin D deficiency Type 2 diabetes mellitus with complication, with long-term current use of insulin (HCC) in this encounter
--- OUTSIDE RECORDS SUMMARY | 2017-07-30 03:55 | XMS REPORT | Encounter Summary ---
Author Author [facility] Organization [facility] Address Unknown Phone Unavailable Care Team Providers Care Production Superintendent Name Role Phone PCP Unavailable Reason for Visit * Reason Comments Diabetes Encounter Details Date Type Department Care Team Description 07/09/2017 Office Visit [facility] Miriam Conti, Type 2 diabetes mellitus Physicians - Internal MD with complication, with Medicine [address] [facility] long-term current use of 5TH FLOOR POD A MS 2023 insulin ([facility]) (Primary [address] [place] [address] Dx);Acquired OFFICE BLDG [phone] hypothyroidism;Hypovitami [place] nosis D;Osteoporosis with [id number] current pathological [phone] fracture, unspecified osteoporosis type, sequela;Hyperparathyroidi sm ([facility]) Social History Tobacco Use Types Packs/Day Years Used Date Never Smoker Smokeless Tobacco: Never Used Alcohol Use Drinks/Week oz/Week Comments No 0 Standard 0.0 drinks or equivalent Sex Assigned at Date Recorded Not on file as of this encounter Last Filed Vital Signs Vital Sign Reading Time Taken Blood Pressure 174/78 07/09/2017 10:36 AM CDT Pulse 55 07/09/2017 10:36 AM CDT Temperature - - Respiratory Rate - - Oxygen Saturation - - Inhaled Oxygen - - Concentration Weight 58.3 kg (128 lb 9.6 oz) 07/09/2017 10:36 AM CDT Height 166.6 cm (5' 5.6") 07/09/2017 10:36 AM CDT Body Mass Index 21.01 07/09/2017 10:36 AM CDT in this encounter Functional Status [...] this encounter Instructions * Patient Instructions - Miriam Conti MD - 07/09/2017 10:20 AM CDT HbA1c today was 5.8 (was 5.5, last visit), falsely low A1C due to anemia - Continue Levemir at 12 Unit qHS - Use novolog 4 units in addition to correction factor (1 units for 40 mg/dl above 140) with meals, breakfast and lunch Less than 80 no insulin 81-140 give 4 units 141-180 give 5 units 181-220 give 6 units 221-260 give 7 units 261-320 give 8 units 321-360 give 9 units 361-420 give 10 units Over 420 give 11 units - Use novolog 6 units in addition to correction factor (1 units for 40 mg/dl above 140) with dinner Less than 80 no insulin 81-140 give 6 units 141-180 give 7 units 181-220 give 8 units 221-260 give 9 units 261-320 give 10 units 321-360 give 11 units 361-420 give 12 units Over 420 give 13 units No novolog at bedtime Add lab for your thyroid and vit D today. in this encounter Progress Notes * Miriam Conti MD - 07/09/2017 10:20 AM CDT Formatting of this note may be different from the original. Date of Service: 07/09/2017 Subjective: Corry Wilde is a 61 y.o. female. History of Present Illness Ms. Wilde is seen today as a follow up visit for type 2 DM, diagnosed 18 years ago, hypothyroidism, and primary hyperparathyroidism. She was last seen on . 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 Since the last visit, She fell and had displaced left intertrochanteric femur fracture s/p surgery in . She has not been on prednisone since November 2016. She is currently taking novolog 4 units tid with LDCF and levemir 10-12 units at bedtime. She is eating better and trying to eat 3 meals a day. Her glucometer today was not able to download but fasting readings has been in the low 100s, occasionally she has hypoglycemia road boss in the 60. Bedtime readings has been elevated 200-300. She denies a burning sensation in stocking glove fashion. 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 Plan to repeat eye evaluation in 6 weeks. Regarding hypothyroidism: currently taking levothyroxine 50 micrograms daily. Most recent TSH was 8.555 on 04/28/17. Regarding hypercalcemia: her calcium was markedly elevated at 12 on 06/06/16, at that time her Cr increased to 1.39. PTH was inappropriately elevated at 131.8 and low vit D of 10. Labs suggested primary hyperparathyroidism with hypovitaminosis D. She denies history of kidney stone and family history of calcium disorders. Ultrasound showed possible left parathyroid adenoma. Serum calcium has been in normal range. She has been trying to drink a lot of fluid. DEXA scan 07/09/2017, no previous study for comparison, lumbar spine L1-L2 T score -1.2, 33% radius T score of -0.6, right femoral neck T score -1.8, right total hip T score -1.5. 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 Review of Systems Constitutional: Positive for appetite change and fatigue. Negative for chills and fever. HENT: Negative for hearing loss and trouble swallowing. Eyes: Positive for visual disturbance. Respiratory: Negative for shortness of breath. Cardiovascular: Negative for chest pain. Gastrointestinal: Negative for abdominal pain, blood in stool, nausea and vomiting. Endocrine: Negative for polyuria. Genitourinary: Negative for dysuria and hematuria. Skin: Negative for rash. Neurological: Negative for headaches. Hematological: Bruises/bleeds easily. Psychiatric/Behavioral: Positive for dysphoric mood. Negative for sleep disturbance. Objective: acetaminophen (TYLENOL) 325 mg tablet Take [...] before meals and at bedtime. Blood-Glucose Meter mis One Touch Verio meter budesonide (ENTOCORT EC) [...] type 2 diabetes mellitus, E 11.9 Insulin [place] (Disposable) 31 gauge x 1/4" ndle Use as needed for insulin administration before meals and at bedtime. lancets (ACCU-CHEK FASTCLIX) [facility] To check blood sugars before meals and at bed time. leucovorin 25 mg tab Take 1 tablet by mouth daily for 30 days. levothyroxine (SYNTHROID) 50 mcg tablet Take 1 Tab by mouth daily 30 minutes before breakfast. magnesium oxide (MAG-OX) 400 mg tablet Take 400 mg by mouth. mineral oil/white petrolatum (ABSORBASE) oint apply to hands and affected areas as needed uxogdkna-gxuuiltgk-stbfwltjdnjhv (MAXITROL) 3.5 mg/g-10,000 unit/g-0.1 % ophthalmic ointment [...] tablets by mouth twice daily. Vitals: 07/09/17 1036 BP: 174/78 Pulse: 55 Weight: 58.3 kg (128 lb 9.6 oz) Height: 166.6 cm (65.6") Body mass index is 21.01 kg/(m^2). Physical Exam Constitutional: No distress. HENT: Head: Normocephalic and atraumatic. Mouth/Throat: No oropharyngeal exudate. Eyes: Conjunctivae are normal. Neck: Neck supple. No tracheal deviation present. No thyromegaly present. Cardiovascular: Normal rate and regular rhythm. Murmur (systolic murmur noted left sternal border) heard. Pulmonary/Chest: Effort normal and breath sounds normal. No respiratory distress. Abdominal: Soft. Bowel sounds are normal. She exhibits no distension. Musculoskeletal: She exhibits no tenderness. Neurological: She is alert. Skin: Skin is warm and dry. foot exam: no tenderness, no open wounds or rashes, sensation intact bilateral to pinprick Psychiatric: Her behavior is normal. Thought content normal. Nursing note and vitals reviewed. Results for SAULO WILDE CORRY ( ) as of 07/09/2017 18:30 Ref. Range 07/09/2017 12:41 Sodium Latest Ref Range: 137 - 147 MMOL/L 135 (L) Potassium Latest Ref Range: 3.5 - 5.1 MMOL/L 5.0 Chloride Latest Ref Range: 98 - 110 MMOL/L 108 CO2 Latest Ref Range: 21 - 30 MMOL/L 24 Anion Gap Latest Ref Range: 3 - 12 3 Blood Urea Nitrogen Latest Ref Range: 7 - 25 MG/DL 50 (H) Creatinine Latest Ref Range: 0.4 - 1.00 MG/DL 1.10 (H) eGFR Non Latest Ref Range: >60 mL/min 51 (L) eGFR Latest Ref Range: >60 mL/min >60 Glucose Latest Ref Range: 70 - 100 MG/DL 177 (H) Albumin Latest Ref Range: 3.5 - 5.0 G/DL 3.4 (L) Calcium Latest Ref Range: 8.5 - 10.6 MG/DL 10.0 Magnesium Latest Ref Range: 1.6 - 2.6 mg/dL 2.1 Total Bilirubin Latest Ref Range: 0.3 - 1.2 MG/DL 0.4 Total Protein Latest Ref Range: 6.0 - 8.0 G/DL 5.5 (L) AST (SGOT) Latest Ref Range: 7 - 40 U/L 40 ALT (SGPT) Latest Ref Range: 7 - 56 U/L 75 (H) Alk Phosphatase Latest Ref Range: 25 - 110 U/L 152 (H) T4-Free Latest Ref Range: 0.6 - 1.6 NG/DL 0.6 TSH Latest Ref Range: 0.35 - 5.00 MCU/ML 7.642 (H) Vitamin D(25-OH)Total Latest Ref Range: 30 - 80 NG/ML 18.3 (L) Ultrasound of the Head and Neck 06/16/16 Clinical Indication: New onset hypercalcemia consistent with primary hyperparathyroidism Technique: Multiple real time fermin scale sonographic images were obtained of the neck with additional Color Doppler and Duplex acquisitions. Findings: The right lobe of the thyroid measures 1.5 x 4.6 x 1.5 cm. The right thyroid appears homogenous with normal vascularity. No thyroid nodules are identified. The left lobe of the thyroid measures 1.5 x 4.9 x 1.7 cm. A small nodule is noted in the left mid thyroid measuring 0.5 x 0.5 x 0.5 cm. Dense shadowing calcification predominantly at the periphery of this nodule obscures the internal architecture, however, no internal blood flow is detected. The remainder of the left thyroid lobe parenchyma is homogeneous. A small ovoid hypoechoic nodule is noted posterior to the left mid thyroid without detectable internal blood flow measuring 0.5 x 0.7 x 0.4 cm. This is incompletely evaluated secondary to shadowing from the previously mentioned calcified left thyroid nodule. No additional extra thyroidal nodule is identified. IMPRESSION 1. Ovoid nodule posterior to the left mid thyroid lobe which may represent a parathyroid adenoma given elevated calcium. No additional extrathyroidal parathyroid candidates are identified. 2. Normal thyroid ultrasound apart from a 5 mm peripherally calcified nodule in the left mid thyroid lobe. Approved by Skylar Oconnell M.D. on 06/16/2016 4:18 PM By my electronic signature, I attest that I have personally reviewed the images for this examination and formulated the interpretations and opinions expressed in this report Finalized by Amy Moreira M.D. on 06/16/2016 5:03 PM. Dictated by Skylar Oconnell M.D. on 06/16/2016 3:42 PM. Assessment and Plan: Type 2 DM, aim to avoid hypoglycemia and significant hyperglycemia over 300. She doesn't need tight control due to her underlying disease. HbA1c today was 5.8 (was 5.5, last visit), falsely low A1C due to anemia - Continue Levemir at 12 Unit qHS -Increase NovoLog at dinner to 6 units in addition to to LDCF (1 units for 40 mg/dl above 140) continue pre-breakfast and lunch at 4 units tid with meals -advised patient and her daugther to report glucose numbers if too high/low -continue holding oral diabetic medication and DM microvascular complication surveillances for now Hypercalcemia secondary to primary hyperparathyroidism with osteoporosis and traumatic hip fracture she denies history of kidney stone. Ultrasound showed possible left parathyroid adenoma. Recent calcium has normalized. Plan to treat conservatively due to poor surgical candidate. DEXA did not suggest osteoporosis but she has osteoporosis due to history of fragility fracture. Her current vitamin D is too low and plan to increase vitamin D to 2000 units daily. Plan to recheck vitamin D in 3 months. At that time if vitamin D improved to closed to 30, we will plan to start IV reclast or Prolia. We will discuss with BMT team. Hypovitaminosis D: starting on vit D3 1,000 units daily, avoid high dose vit D due to hypercalcemia. Vit D decreased to 18.3 today and plan to increase vitamin D to 2000 units daily. Hypothyroidism: currently taking levothyroxine 50 micrograms daily. Most recent TSH was persistently elevated at 7.642 today. Plan to increase dose to 75 mcg daily and recheck labs in 8 weeks. RTC in 3 mo. * Mary Beth Knapp LPN - 07/09/2017 10:20 AM CDT Patient brought meter for download. in this encounter Plan of Treatment Date Type Specialty Care Team Description 06/28/2017 Procedure Pass Infectious Diseases Name Priority Associated Diagnoses Order Schedule GLUCOSE METER DOWNLOAD Routine Type 2 diabetes mellitus Ordered: 2016 with complication, with long-term current use of insulin (HCC) as of this encounter Results * FREE T4 (FREE THYROXINE) ONLY (07/09/2017 12:41 PM) Component Value Ref Range T4-Free 0.6 0.6 - 1.6 NG/DL Specimen Performing Laboratory Blood [facility] [address] [place] [address] * THYROID STIMULATING HORMONE-TSH (07/09/2017 12:41 PM) Component Value Ref Range TSH 7.642 (H) 0.35 - 5.00 MCU/ML Specimen Performing Laboratory [facility] [address] [place] [address] * 25-OH VITAMIN D (D2 + D3) (07/09/2017 12:41 PM) Component Value Ref Range Vitamin D(25-OH)Total 18.3 (L) 30 - 80 NG/ML Specimen Performing Laboratory [facility] [address] [place] [address] * POC HEMOGLOBIN A1C (07/09/2017 11:41 AM) Component Value Ref Range Poc Hemoglobin A1C 5.8 Specimen Performing Laboratory Blood, capillary - Blood IN CLINIC * POC GLUCOSE QUANTITATIVE BLOOD (07/09/2017 11:41 AM) Component Value Ref Range Glucose, POC 194 Specimen Performing Laboratory Blood, capillary IN CLINIC in this encounter Visit Diagnoses Diagnosis Type 2 diabetes mellitus with complication, with long-term current use of insulin ([facility]) - Primary Acquired hypothyroidism Unspecified hypothyroidism Hypovitaminosis D Unspecified vitamin D deficiency Osteoporosis with current pathological fracture, unspecified osteoporosis type , sequela Hyperparathyroidism ([facility]) Hyperparathyroidism, unspecified in this encounter
--- OUTSIDE RECORDS SUMMARY | 2017-07-30 03:55 | XMS REPORT | Encounter Summary ---
Author Author [facility] Organization [facility] Address Unknown Phone Unavailable Care Team Providers Care Starting Gate Driver Name Role Phone PCP Unavailable Reason for Referral * Radiology Services Status Reason Specialty Diagnoses / Referred By Referred To Procedures Contact Contact New Request Radiology Diagnoses Karaichahanasorn, Hypercalcemia MD Miriam Hyperparathyroid [address] [place] [address] ([facility]) [address] rocedures [place], [place] BONE DENSITY [address] SPINE/HIP Reason for Visit * Reason Comments Test/procedure Encounter Details Date Type Department Care Team Description 07/09/2017 Clinical [facility] Hypercalcemia;Hyperparath Support Physicians - Internal yroidism Medicine ([facility]);Osteopenia, 5TH FLOOR POD A unspecified [address] location;[place] [address] Social History Tobacco Use Types [...] Diseases as of this encounter Results * BONE DENSITY SPINE/HIP (07/09/2017) Specimen Performing Laboratory IN CLINIC in this encounter Visit Diagnoses Diagnosis Hypercalcemia Hyperparathyroidism (HCC) Hyperparathyroidism, unspecified Osteopenia, unspecified location Postmenopausal Asymptomatic postmenopausal status (age-related) (natural) in this encounter
--- OUTSIDE RECORDS SUMMARY | 2017-07-30 03:56 | XMS REPORT | Encounter Summary ---
Author Author [facility] Organization [facility] Address Unknown Phone Unavailable Care Team Providers Care Patient Transporter Name Role Phone PCP Unavailable Reason for Visit * Auth/Cert Status Reason Specialty Diagnoses / Referred By Referred To Procedures Contact Contact Diagnoses Dysphagia, unspecified type UNKNOWN P rocedures [place] ESOPHAGOGASTRODU ODENOSCOPY TRANSORAL DIAGNOSTIC ESOPHAGOGASTRODU ODENOSCOPY Encounter Details Date Type Department Care Team Description 06/21/2017 Surgery Gastrointenstinal Russel Cornejo MD ESOPHAGOGASTRODUODENOSCOP Endoscopy [address] [place] [address] [place] [address] [phone] Social History Tobacco Use Types Packs/Day Years Used Date Never Smoker Smokeless Tobacco: Never Used Alcohol Use Drinks/Week oz/Week Comments No 0 Standard 0.0 drinks or equivalent Sex Assigned at Date Recorded Not on file as of this encounter Last Filed Vital Signs Vital Sign Reading Time Taken Blood Pressure 183/73 06/21/2017 10:44 AM CDT Pulse 59 06/21/2017 10:44 AM CDT Temperature 36.7 C (98.1 F) 06/21/2017 10:15 AM CDT Respiratory Rate - - Oxygen Saturation 100% 06/21/2017 10:44 AM CDT Inhaled Oxygen - - Concentration Weight 56.2 kg (124 lb) 06/21/2017 9:00 AM CDT Height 167.6 cm (5' 6") 06/21/2017 9:00 AM CDT Body Mass Index 20.01 06/21/2017 9:00 AM CDT in this encounter Functional Status [...] impairment: No 05/06/2017 as of this encounter Discharge Instructions * Discharge Instr - Education - Erum Valdez RN - 06/21/2017 10:27 AM CDT EGD/Upper EUS/ERCP/Antegrade Enteroscopy Post Upper Endoscopy Instructions -You may have a sore throat after the procedure for 2-3 days. Try sucrets or lozenges to help ease the pain. If it continues please contact us. -If you feel feverish, have a temperature of 101 degrees or higher, persistent nausea and vomiting, abdominal pain or dark stools; please notify your nurse or GI physician. -You may have abdominal cramping following the procedure this can be relieved by belching or passing air. -If you have redness or swelling at the IV site, place a warm, wet washcloth over the affected areas for 15 minutes, 3-4 times a day until the redness subsides. If symptoms continue for 2-3 days, contact your regular physician. - If you have bleeding from your mouth, over 2 tablespoons and increasing, please notify your physician. A small amount of bleeding is normal if a biopsy or polyps were taken. If you are vomiting blood you need to seek immediate medical attention. - You may resume all your routine medications, if medications need to be held your physician and/or nurse will notify you post procedure. SPECIFIC INSTRUCTIONS OUTPATIENTS: A. Because of sedation and lack of coordination, UNTIL TOMORROW, DO NOT: 1. Operate any motorized vehicle - this includes driving. 2. Sign any legal documents or conduct important business matters. 3. Use any dangerous machinery (chain saw, lawnmower, etc.). 4. Drink any alcoholic beverages. Should you have any questions or concerns after your procedure please call [phone] M-F 8am-5:00 pm. After 5:00 pm, holidays or weekends call and ask for the GI Doctor [employer] conservation laborer. in this encounter Medications at Time of Discharge Medication Sig. Disp. Refills Start Date End Date acetaminophen (TYLENOL) Take 2 Tabs by mouth 0 04/27/2017 325 mg tablet every 4 hours as needed. acyclovir (ZOVIRAX) 800 Take 1 Tab by mouth twice 60 Tab 5 04/05/2017 mg tabletIndications: daily. 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remission (HCC) benzonatate (TESSALON Take 1 capsule by mouth 20 capsule 0 06/09/2017 PERLES) 100 mg capsule every 8 hours as needed for Cough. Blood-Glucose Meter [facility] One Touch Verio meter 1 Each 0 [...] E 11.9 diabetes mellitus, E 11.9 Insulin Ralph Use as needed for insulin 400 each 6 06/02/2017 (Disposable) 31 gauge x administration before 1/4" ndle meals and at bedtime. lancets (ACCU-CHEK To check blood sugars 100 Each 3 10/13/2016 FASTCLIX) MISC before meals and at bed time. magnesium oxide (MAG-OX) Take 400 mg by mouth. 400 mg tablet penicillin V potassium Take 3 tabs by mouth 180 tablet 3 06/03/2017 (VEETID) 250 mg tablet twice daily. BECLOMETHASONE Take 1 mL by mouth four 240 mL 3 06/02/20172016 DIPROPIONATE times daily. For (BECLOMETHASONE(#) IN appetite. CORN OIL) 2 mg/mL blood sugar diagnostic 1 Strip before meals and 100 Strip 6 201607/09/2017 (ONETOUCH VERIO) test at bedtime. strip leucovorin 25 mg tab Take 1 Tab by mouth 30 Tab 3 05/06/20172016 daily. levothyroxine (SYNTHROID) Take 1 Tab by mouth daily 90 Tab 3 201607/09/2017 50 mcg tablet 30 minutes before breakfast. mineral oil/white apply to hands and 09/18/2016 07/28/2017 petrolatum (ABSORBASE) affected areas as needed oint farrrfgy-ffmfwgeoh-qzmmlf Apply 1 cm to left eye as 3.5 g 2 201607/07/2017 thasone (MAXITROL) 3.5 directed twice daily. mg/g-10,000 unit/g-0.1 % ophthalmic ointmentIndications: Panuveitis of left eye omeprazole DR(+) Take 1 capsule by mouth 90 capsule 3 06/17/2017 (PRILOSEC) 20 mg capsule daily before breakfast. posaconazole EC (NOXAFIL) Take 4 Tabs by mouth 112 Tab 3 05/06/2017 07/09/2017 100 mg tablet daily with breakfast. potassium chloride(+) Take 2 capsules by mouth 90 capsule 3 201607/09/2017 (MICRO-K) 10 mEq capsule twice daily. Take with a meal and a full glass of water. pyrimethamine (DARAPRIM) Take 2 Tabs by mouth 60 Tab 3 05/06/2017 25 mg tablet daily. sulfADIAZINE 500 mg Take 2 Tabs by mouth four 240 Tab 3 05/06/2017 06/28/2017 tablet times daily. as of this encounter Progress Notes * Belen Holguin RN - 06/21/2017 9:16 AM CDT Due to language barrier, an associate professor of mathematics was present during the history-taking and subsequent discussion (and for part of the physical exam) with this patient. Senior Auditor mode: In person Senior Auditor/ ID Number: [id number] [id number] [id number] * Va Butt RN - 06/17/2017 3:41 PM CDT Certified Ophthalmic Medical Technician request placed for date of procedure to meet patient at Admissions at 6:45 AM. * Va Butt RN - 06/17/2017 3:29 PM CDT BMT Clinic called to schedule 'Urgent' EGD for patient, reviewed pre procedure instructions with RN, patient should not have anything by mouth after midnight, patient in clinic at this time, RN will instruct patient on pre procedure instructions via Certified Ophthalmic Medical Technician. Patient does not take anticoagulants, instructed RN the patient could take necessary transplant medications the morning of the procedure by 6:00 AM with a sip of water and then nothing by mouth. in this encounter H&P Notes * Russel Cornejo MD - 06/21/2017 11:14 AM CDT Formatting of this note may be different from the original. Pre Procedure History and Physical/Sedation Plan Name:Donna Wilde :1955 Age: 61 y.o. Date of Service: 06/21/17 Date of Procedure: 06/21/2017 Planned Procedure(s): GI: EGD Sedation/Medication Plan: MAC (Monitored Anesthesia Care) Discussion/Reviews: Physician has discussed risks and alternatives of this type of sedation and above planned procedures with patient Chief Complaint: dysphagia History of Present Illness: Donna Wilde is a 61 y.o. 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) DM2 (diabetes mellitus, type 2) (HCC) HLD (hyperlipidemia) HTN (hypertension) Thyroid disorder Past Surgical History: Procedure Laterality Date SECTION, LOW TRANSVERSE COLONOSCOPY N/A 04/14/2016 COLONOSCOPY BIOPSY performed by Shane Lynn MD at ENDO/GI INTERTROCHANTERIC HIP FRACTURE SURGERY Left [place] ESOPHAGOGASTRODUODENOSCOPY TRANSORAL DIAGNOSTIC N/A 09/09/2016 ESOPHAGOGASTRODUODENOSCOPY performed by Russel Cornejo MD at ENDO/GI [place] NASAL/SINUS ENDOSCOPY W/MAXILLARY ANTROSTOMY Left 05/03/2017 FUNCTIONAL ENDOSCOPY SINUS SURGERY WITH MAXILLARY ANTROSTOMY performed by Charlotte Montelongo MD at Main OR/Periop [place] PROPH TX N/P/PLTWR W/WO METHYLMETHACRYLATE FEMUR Left 04/19/2017 INSERTION CEPHALOMEDULLARY NAIL FEMUR performed by Shane Sam MD at Main OR/ Periop [place] SIGMOIDOSCOPY FLX DX W/COLLJ SPEC BR/WA IF PFRMD N/A 04/14/2016 SIGMOIDOSCOPY DIAGNOSTIC performed by Shane Lynn MD at ENDO/GI [place] SIGMOIDOSCOPY FLX DX W/COLLJ SPEC BR/WA IF PFRMD N/A 07/29/2016 SIGMOIDOSCOPY DIAGNOSTIC performed by Niharika Lam MD at ENDO/GI [place] SIGMOIDOSCOPY FLX DX W/COLLJ SPEC BR/WA IF PFRMD N/A 09/09/2016 SIGMOIDOSCOPY DIAGNOSTIC performed by Russel Cornejo MD at ENDO/GI [place] SIGMOIDOSCOPY FLX W/BIOPSY SINGLE/MULTIPLE 09/09/2016 SIGMOIDOSCOPY BIOPSY performed by Russel Cornejo MD at ENDO/GI UPPER GASTROINTESTINAL ENDOSCOPY N/A 04/14/2016 ESOPHAGOGASTRODUODENOSCOPY performed by Shane Lynn MD at ENDO/GI UPPER GASTROINTESTINAL ENDOSCOPY N/A 04/14/2016 ESOPHAGOGASTRODUODENOSCOPY BIOPSY performed by Shane Lynn MD at ENDO/GI UPPER GASTROINTESTINAL ENDOSCOPY N/A 07/29/2016 ESOPHAGOGASTRODUODENOSCOPY performed by Niharika Lam MD at ENDO/GI Pertinent medical/surgical history reviewed Pertinent family history reviewed Social History Substance Use Topics Smoking status: Never Smoker Smokeless tobacco: Never Used Alcohol use No History Drug Use No Allergies: Review of patient's allergies indicates no known allergies. Medications No current facility-administered medications for this encounter. Current Outpatient Prescriptions Medication Sig acetaminophen (TYLENOL) 325 mg tablet Take 2 [...] type 2 diabetes mellitus, E 11.9 Insulin Ralph (Disposable) 31 gauge x 1/4" ndle Use as needed for insulin administration before meals and at bedtime. lancets (ACCU-CHEK FASTCLIX) MISC To check blood sugars before meals and at bed time. leucovorin 25 mg tab Take 1 Tab by mouth daily. levothyroxine (SYNTHROID) 50 mcg tablet Take 1 Tab by mouth daily 30 minutes before breakfast. magnesium oxide (MAG-OX) 400 mg tablet Take 400 mg by mouth. mineral oil/white petrolatum (ABSORBASE) oint apply to hands and affected areas as needed zgikahbv-ehkurtbft-uiyxsvxgevtbj (MAXITROL) 3.5 mg/g-10,000 unit/g-0.1 % ophthalmic ointment [...] water. pyrimethamine (DARAPRIM) 25 mg tablet Take 2 Tabs by mouth daily. sulfADIAZINE 500 mg tablet Take 2 Tabs by mouth four times daily. Review of Systems: Review obtained from the patient. Physical Exam: Temp: 36.7 C (98.1 F) (06/21 1015) Pulse: 64 (06/21 1157) Respirations: 17 PER MINUTE (06/21 1044) BP: 161/73 (06/21 1157) General appearance: alert Throat: Lips, mucosa, and tongue normal. Teeth and gums normal Lungs: clear to auscultation bilaterally Heart: regular rate and rhythm, S1, S2 normal, no murmur, click, rub or gallop Abdomen: soft, non-tender. Bowel sounds normal. No masses, no organomegaly Extremities: extremities normal, atraumatic, no cyanosis or edema @ Airway: per anesthesia Anesthesia Classification: Per Anesthesia NPO Status: Acceptable Status: Not Lab/Radiology/Other Diagnostic Tests Labs: Relevant labs reviewed Russel Cornejo MD Pager in this encounter Plan of Treatment Date Type Specialty Care Team Description 06/28/2017 Procedure Pass Infectious Diseases Name Priority Associated Diagnoses Order Schedule SURGICAL PATHOLOGY Routine Dysphagia, unspecified ONCE for 1 Occurrences type starting 06/21/2017 as of this encounter Procedures Procedure Name Priority Date/Time Associated Diagnosis Comments ESOPHAGOGASTRODUODENOSCOP 06/21/2017 Dysphagia, unspecified Y BIOPSY 9:25 AM CDT type ESOPHAGOGASTRODUODENOSCOP 06/21/2017 Dysphagia, unspecified Y 9:25 AM CDT type in this encounter Results * SURGICAL PATHOLOGY (06/21/2017 10:44 AM) Component Value Ref Range PATHOLOGY REPORT [facility] [email or web address] Tricia Jerry MD, PhD, Director of Anatomic Pathology Department of Pathology and Laboratory Medicine [address] [place] [id number] Surgical Pathology Office: [phone] SURGICAL PATHOLOGY REPORT NAME: DONNA PITTS SURG PATH #: [id number] MR #: [id number] SPECIMEN CLASS: SR BILLING #: [id number] ALT ID #: LOCATION: [facility] DATE OF PROCEDURE: 06/21/2017 AGE: 61 SEX: [...] Nitin Thompson Procedure Date: 06/21/2017 9:54 AM [facility]: [id number] Date of : 1955 Gender: Female Attending Physician: Russel Cornejo MD Procedure: Upper GI endoscopy Indications: Dy sphagia. Patient with myelodysplastic/myeloproliferative neoplasm, morphologically favoring CMML-2, s/p 4 cycles of dacogen, progressed to AML, CR 1 after 7+3 and HIDAC x 1 Date of Transplant: 03/02/16 Providers: Russel Cornejo MD (Doctor), Bryce Morales RN (Nurse), Gisella Ortiz E Learning Developer (E Learning Developer) Referring Physician: Annalee Virk Medications: Mo nitored [...] 23 seconds Procedure Code(s): --- Professional --- 02354, Esophagogastroduodenoscopy, flexible, transoral; with biopsy, single or multiple Diagnosis Code(s): --- Professional --- K22.8, Other specified diseases of esophagus K31.89, Other diseases of stomach and duodenum K25.9, Gastric ulcer, unspecified as acute or chronic, without hemorrhage or perforation R13.10, Dysphagia, unspecified CPT copyright 2016 [employer]. All rights reserved. The codes documented in this report are preliminary and upon cupola operator review may be revised to meet current compliance requirements. Attending Participation: I personally performed the entire procedure. MD Russel Bernardo MD 06/21/2017 10:46:00 AM The attending physician has electronically signed and finalized this document. Number of Addenda: 0 Note Initiated On: 06/21/2017 9:54 AM Specimen Performing Laboratory [facility] OTHER RESULTS * POC GLUCOSE (06/21/2017 8:46 AM) Component Value Ref Range Glucose, POC 97 70 - 100 MG/DL Specimen Performing Laboratory [facility] [address] [place] [address] in this encounter Visit Diagnoses Diagnosis Dysphagia, unspecified type in this encounter Admitting Diagnoses Diagnosis Dysphagia, unspecified type - UNKNOWN in this encounter Administered Medications Medication Order MAR Action Action Date Dose Rate Site sodium chloride 0.9 % infusion Given - New 06/21/2017 1,000 mL 20 mL/ hr 1,000 mL, 1,000 mL, Intravenous, at 20 Bag 09:07 CDT mL/hr, ONCE, 1 dose, 06/21/17 at 0915, Pre-Op in this encounter
--- OUTSIDE RECORDS SUMMARY | 2017-07-30 03:56 | XMS REPORT | Encounter Summary ---
Author Author [facility] Organization [facility] Address Unknown Phone Unavailable Care Team Providers Care Nutrition Worker Name Role Phone PCP Unavailable Reason for Visit * Auth/Cert Status Reason Specialty Diagnoses / Referred By Referred To Procedures Contact Contact Diagnoses Dysphagia, unspecified type UNKNOWN P rocedures [place] ESOPHAGOGASTRODU ODENOSCOPY TRANSORAL DIAGNOSTIC ESOPHAGOGASTRODU ODENOSCOPY Encounter Details Date Type Department Care Team Description 06/21/2017 Hospital [facility] Shane Sam MD Encounter Hospital Radiology [address] [facility] [address] [place] [address] [address] FLOOR [phone] [place] [address] [phone] Social History Tobacco Use Types Packs/Day Years [...] hours as needed for Cough. Blood-Glucose Meter misc One Touch Verio meter [...] E 11.9 diabetes mellitus, E 11.9 Insulin [place] Use as needed for insulin 400 each [...] petrolatum (ABSORBASE) affected areas as needed oint dsmjunkn-fiwufcvxu-jptrmi Apply 1 cm to left eye as [...] tablet times daily. as of this encounter Plan of Treatment Date Type Specialty Care Team Description 06/28/2017 Procedure Pass Infectious Diseases as of this encounter Results * HIP 2-3 VIEWS W PELVIS LT (06/21/2017 12:24 PM) Specimen Performing Laboratory [facility] RAD RESULTS [...] Arash Keller M.D. on 06/21/2017 1:44 PM. in this encounter Visit Diagnoses Diagnosis Post-operative state Other postprocedural status in this encounter
--- OUTSIDE RECORDS SUMMARY | 2017-07-30 03:56 | XMS REPORT | Encounter Summary ---
Author Author [facility] Organization [facility] Address Unknown Phone Unavailable Care Team Providers Care Cereal Miller Name Role Phone PCP Unavailable Encounter Details Date Type Department Care Team Description 06/24/2017 Hospital [facility] Luis Moody MD Encounter Cancer Center - BMT [address] [place] [address] [address] [place] [address] [phone] Social History Tobacco Use Types Packs/Day Years [...] E 11.9 diabetes mellitus, E 11.9 Insulin Mereta Use as needed for insulin 400 each [...] petrolatum (ABSORBASE) affected areas as needed oint urkmfhar-hjsywzhqx-egcubv Apply 1 cm to left eye as [...] as of this encounter Progress Notes * Kathrine Betts, ROSARIO - 06/24/2017 4:47 PM CDT Patient added on for Zarxio. Zarxio 300 mcg administered to abdominal tissue. Patient tolerated. No questions or concerns at this time. Exiting clinic via wheelchair with family. in this encounter Miscellaneous Notes * Addendum Note - Teresa Arndt - 06/24/2017 11:59 PM CDT Encounter addended by: Teresa Arndt on: 06/29/2017 1:19 PM
Actions taken: Visit diagnoses modified, Charge Capture section accepted in this encounter Plan of Treatment Date Type Specialty Care Team Description 06/28/2017 Procedure Pass Infectious Diseases as of this encounter Visit Diagnoses Diagnosis 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 in this encounter Administered Medications Medication Order MAR Action Action Date Dose Rate Site filgrastim-sndz (ZARXIO) inj syringe 300 Given 06/24/2017 300 mcg Abdominal mcg 16:36 CDT Tissue 300 mcg, Subcutaneous, ONCE, 1 dose, Hilda 06/24/17 at 1630 in this encounter
--- OUTSIDE RECORDS SUMMARY | 2017-07-30 03:56 | XMS REPORT | Encounter Summary ---
Author Author [facility] Organization [facility] Address Unknown Phone Unavailable Care Team Providers Care Script Manager Name Role Phone PCP Unavailable Reason for Visit * Reason Comments Heme/Onc Care Encounter Details Date Type Department Care Team Description 06/24/[address] [facility] Luis Moody MD H/O stem cell transplant Cancer Center - BMT Exam [address] [facility] [id number] [place] [address] [phone] Social History Tobacco Use Types Packs/Day Years [...] this encounter Results * CMV QUANT PCR-BLOOD (06/24/2017 2:57 PM) Component Value Ref Range IU/mL CMV [...] NOT DETECTED [IU]/mL Specimen Performing Laboratory Blood [facility] [address] [place] [address] * MAGNESIUM (06/24/2017 2:57 PM) Component Value Ref Range Magnesium 1.7 1.6 - 2.6 mg/dL Specimen Performing Laboratory Blood [facility] [address] [place] [address] * COMPREHENSIVE METABOLIC PANEL (06/24/2017 2:57 PM) Component Value Ref Range Sodium 133 (L) 137 - 147 MMOL/L Potassium 4.8 3.5 - 5.1 MMOL/L Chloride 108 98 - 110 MMOL/L Glucose 170 (H) 70 - 100 MG/DL Blood Urea Nitrogen 38 (H) 7 - 25 MG/DL Creatinine 1.45 (H) 0.4 - 1.00 MG/DL Calcium 10.4 8.5 - 10.6 MG/DL Total Protein 5.6 (L) 6.0 - 8.0 G/DL Total Bilirubin 0.4 0.3 - 1.2 MG/DL Albumin 3.4 (L) 3.5 - 5.0 G/DL Alk Phosphatase 164 (H) 25 - 110 U/L AST (SGOT) 32 7 - 40 U/L CO2 20 (L) 21 - 30 MMOL/L ALT (SGPT) 39 7 - 56 U/L Anion Gap 5 3 - 12 eGFR Non 37 (L) [...] Pharmacist for questions. Specimen Performing Laboratory Blood [facility] [address] [place] [address] * CBC AND DIFF (06/24/2017 2:57 PM) Component Value Ref Range White Blood Cells 2.8 (L) 4.5 - 11.0 K/UL RBC 2.64 (L) 4.0 - 5.0 M/UL Hemoglobin 10.4 (L) 12.0 - 15.0 GM/DL Hematocrit 29.9 (L) 36 - 45 % MCV 113.4 (H) 80 - 100 FL MCH 39.6 (H) 26 - 34 PG MCHC 34.9 32.0 - 36.0 G/DL RDW 14.7 11 - 15 % Platelet Count 80 (L) 150 - 400 K/UL MPV 8.3 7 - 11 FL Neutrophils 20 (L) 41 - 77 % Lymphocytes 64 (H) 24 - 44 % Monocytes 16 (H) 4 - 12 % Eosinophils 0 0 - 5 % Basophils 0 0 - 2 % Absolute Neutrophil Count 0.50 (L) 1.8 - 7.0 K/UL Absolute Lymph Count 1.70 1.0 - 4.8 K/UL Absolute Monocyte Count 0.50 0 - 0.80 K/UL Absolute Eosinophil Count 0.00 0 - 0.45 K/UL Absolute Basophil Count 0.00 0 - 0.20 K/UL Specimen Performing Laboratory Blood [facility] [address] [place] [address] in this encounter Visit Diagnoses Diagnosis H/O stem cell transplant (HCC) Peripheral stem cells replaced by transplant in this encounter
--- OUTSIDE RECORDS SUMMARY | 2017-07-30 03:56 | XMS REPORT | Encounter Summary ---
Author Author [facility] Organization [facility] Address Unknown Phone Unavailable Care Team Providers Care Reefer Engineer Name Role Phone PCP Unavailable Encounter Details Date Type Department Care Team Description 06/21/2017 Procedure Pass Gastrointenstinal Endoscopy [address] [place], [place] [id number] Social History Tobacco Use Types Packs/Day Years [...]
--- OUTSIDE RECORDS SUMMARY | 2017-07-30 03:56 | XMS REPORT | Encounter Summary ---
Author Author [facility] Organization [facility] Address Unknown Phone Unavailable Care Team Providers Care Manager Of Radiology Name Role Phone PCP Unavailable Reason for Visit * Auth/Cert Status Reason Specialty Diagnoses / Referred By Referred To Procedures Contact Contact Diagnoses Dysphagia, unspecified type UNKNOWN P rocedures CO ESOPHAGOGASTRODU ODENOSCOPY TRANSORAL DIAGNOSTIC ESOPHAGOGASTRODU ODENOSCOPY Encounter Details Date Type Department Care Team Description 06/21/2017 Anesthesia Gastrointenstinal Berto Delong MD Endoscopy [address] [facility] [address] [place] [address] [place] [address] [phone] Social History Tobacco Use Types Packs/Day Years [...] impairment: No 05/06/2017 as of this encounter OR Notes * Anesthesia Postprocedure Evaluation - Herminio Moore MD - 06/21/2017 10:45 AM CDT Formatting of this note may be different from the original. Post-Anesthesia Evaluation Name: Donna Wilde : 1955 Age: 61 y.o. Sex: female Procedure Date: 06/21/2017 Procedure: Procedure(s) with comments: ESOPHAGOGASTRODUODENOSCOPY - Welsh, Ragman requested ESOPHAGOGASTRODUODENOSCOPY BIOPSY Surgeon: Surgeon(s): Hermila Cornejo MD Post-Anesthesia Vitals BP: 183/73 (06/21 1044) Temp: 36.7 C (98.1 F) (06/21 1015) Pulse: 59 (06/21 1044) Respirations: 17 PER MINUTE (06/21 1044) SpO2: 100 % (06/21 1044) O2 Delivery: None (Room Air) (06/21 1015) SpO2 Pulse: 59 (06/21 1044) Height: 167.6 cm (66") (06/21 900) Post Anesthesia Evaluation Note Evaluation location: Pre/Post Patient participation: recovered; patient participated in evaluation Level of consciousness: alert Pain score: 0 Pain management: adequate Hydration: normovolemia Temperature: 36.0C - 38.4C Airway patency: adequate Perioperative Events Perioperative events: no Post-op nausea and vomiting: no PONV Postoperative Status Cardiovascular status: hemodynamically stable Respiratory status: spontaneous ventilation Follow-up needed: none Perioperative Events Perioperative Event: No Emergency Case Activation: No Post-Anesthesia Evaluation Attestation: I reviewed and agree the indicated post- anethesia care was provided. Staff name: Herminio Moore MD Date: 06/21/2017 * Anesthesia Preprocedure Evaluation - Herminio Moore MD - 06/21/2017 8:39 AM CDT Formatting of this note may be different from the original. Anesthesia Pre-Procedure Evaluation Name: Donna Wilde : 1955 Age: 61 y.o. Sex: female Procedure Date: 06/21/2017 Procedure: Procedure(s) with comments: ESOPHAGOGASTRODUODENOSCOPY - Welsh, Ragman requested Physical Assessment Vital Signs (last filed in past 24 hours): BP: 184/76 (06/21 900) Temp: 36.4 C (97.5 F) (06/21 900) Respirations: 16 PER MINUTE (06/21 900) SpO2: 100 % (06/21 900) O2 Delivery: None (Room Air) (06/21 900) Height: 167.6 cm (66") (06/21 900) Weight: 56.2 kg (124 lb) (06/21 900) Patient History No Known Allergies Current Medications Medication Directions acetaminophen (TYLENOL) 325 mg tablet Take 2 Tabs by mouth every 4 hours as needed. acyclovir (ZOVIRAX) 800 mg tablet Take 1 Tab by mouth twice daily. albuterol (VENTOLIN HFA, PROAIR HFA, PROVENTIL HFA) 90 mcg/actuation inhaler Inhale 2 Puffs by mouth into the lungs every 4 hours as needed for Wheezing or Shortness of Breath. Shake well before use. BECLOMETHASONE DIPROPIONATE (BECLOMETHASONE(#) IN CORN OIL) 2 mg/mL Take 1 mL by mouth four times daily. For appetite. benzonatate (TESSALON PERLES) 100 mg capsule Take 1 capsule by mouth every 8 hours as needed for Cough. blood sugar diagnostic (ONETOUCH VERIO) test strip 1 Strip before meals and at bedtime. Blood-Glucose Meter [facility] One Touch Verio meter budesonide (ENTOCORT EC) 3 mg capsule Take 1 capsule by mouth twice daily. citalopram (CELEXA) 20 mg tablet Take 1 tablet by mouth daily. clonazePAM (KLONOPIN) 0.5 mg tablet Take 0.5 Tabs by mouth at bedtime daily. ergocalciferol (VITAMIN D-2) 50,000 unit capsule Take 1 capsule by mouth every 7 days for 21 days. insulin aspart (NOVOLOG FLEXPEN) 100 unit/mL injection PEN Inject 3 Units under the skin three times daily with meals. insulin detemir(+) (LEVEMIR FLEXTOUCH) 100 unit/mL (3 mL) injection pen Inject 10 Units under the skin at bedtime daily. Indications: type 2 diabetes mellitus , E 11.9 Insulin [place] (Disposable) 31 gauge x 1/4" ndle Use as needed for insulin administration before meals and at bedtime. lancets (ACCU-CHEK FASTCLIX) MISC To check blood sugars before meals and at bed time. leucovorin 25 mg tab Take 1 Tab by mouth daily. levothyroxine (SYNTHROID) 50 mcg tablet Take 1 Tab by mouth daily 30 minutes before breakfast. mineral oil/white petrolatum (ABSORBASE) oint apply to hands and affected areas as needed montelukast (SINGULAIR) 10 mg tablet Take 1 tablet by mouth at bedtime daily. mrhtneqw-vdlxbwbqd-zonawbpsfcphg (MAXITROL) 3.5 mg/g-10,000 unit/g-0.1 % ophthalmic ointment [...] by mouth four times daily. Review of Systems/Medical History Patient summary reviewed Nursing notes reviewed Pertinent labs reviewed PONV Screening: Female gender and Non-smoker No history of anesthetic complications No family history of anesthetic complications Pulmonary Shortness of breath Cardiovascular Recent diagnostic studies: echocardiogram 1. Normal size left ventricle cavity with mild basal septal hypertrophy 2. Normal systolic function, EF ~ 60% 3. Right ventricle is mildly dilated with qualitatively normal function 4. Mild right atrium enlargement 5. Aortic sclerosis without stenosis 6. Main pulmonary artery appears at least moderately dilated 7. Estimated peak systolic PA pressure=26 mmHg 8. No pericardial effusion 9. Abnormal appearance of the right lung base by ultrasound, consider alternative imaging if clinically indicated Exercise tolerance: <4 METS (Prior to femur fx, patient was only able to do very light house work ) Hypertension (No prior dx, not on BP meds), poorly controlled GI/Hepatic/Renal GERD, well controlled Renal disease: ARF Neuro/Psych Neuromuscular disease CVA (hx of cerebellar strokes, denies residual symptoms) Neuropathy (diabetic neuropathy as per patient) Psychiatric history Depression Musculoskeletal Fractures (left femur fx s/p ORIF) Endocrine/Other Diabetes, poorly controlled, type 1; using insulin Hypothyroidism (no recent dose changes with synthroid) Anemia (s/p multiple transfusions) 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 Multiple missing lower teeth. Partial dentures removed. Cardiovascular Findings: Rhythm: regular Pulmonary Findings: Decreased breath sounds. Diagnostic Tests Hematology: Lab Results Component Value Date HGB 10.6 06/17/2017 HCT 30.5 06/17/2017 PLTCT 79 06/17/2017 WBC 4.7 06/17/2017 NEUT 49 06/17/2017 ANC 2.30 06/17/2017 LYMPH 18 04/19/2017 ALC 1.60 06/17/2017 BRUCE 14 06/17/2017 AMC 0.70 06/17/2017 EOSA 1 06/17/2017 ABC 0.00 06/17/2017 BASOPHILS 2 04/19/2017 MCV 112.5 06/17/2017 MCH 39.0 06/17/2017 MCHC 34.6 06/17/2017 MPV 8.0 06/17/2017 RDW 15.9 06/17/2017 General Chemistry: Lab Results Component Value Date NA 134 06/17/2017 K 4.7 06/17/2017 CL 108 06/17/2017 CO2 23 06/17/2017 GAP 3 06/17/2017 BUN 40 06/17/2017 CR 1.21 06/17/2017 GLU 148 06/17/2017 CA 10.2 06/17/2017 ALBUMIN 3.4 06/17/2017 LACTIC 0.7 04/19/2017 OBSCA 1.35 04/22/2017 MG 1.6 06/17/2017 TOTBILI 0.6 06/17/2017 PO4 3.9 05/04/2017 Coagulation: Lab Results Component Value Date PTT 28.7 05/03/2017 INR 1.0 05/03/2017 Anesthesia Plan ASA score: 4 Plan: MAC NPO status: acceptable Comments: (Pt seen and identified in holding. History and physical performed. Plan for deep sedation/MAC. All relevant parties in agreement.) Informed Consent Anesthetic plan and risks discussed with patient and spouse. Plan discussed with: anesthesiologist and PLATFORM BUILDER. in this encounter Plan of Treatment Date Type Specialty Care Team Description 06/28/2017 Procedure Pass Infectious Diseases as of this encounter Visit Diagnoses Not on filein this encounter Administered Medications Medication Order MAR Action Action Date Dose Rate Site ketamine (KETALAR) injection Given 06/21/2017 20 mg INTRA-PROCEDURE MED, Starting Mon 10:03 CDT 06/21/17 at 1003, Until 06/21/17 at 1018, Anesthesia Intra-op propofol (DIPRIVAN) infusion 200 mg Given - New 06/21/2017 50 16.9 mL/ hr 200 mg Bag 10:01 CDT mcg/kg/min 20 mL, Intravenous, INTRA-PROCEDURE MED(CONT), Starting 06/21/17 at 1001, Until 06/21/17 at 1018, Anesthesia Intra-op Dose/Rate Change 06/21/2017 60 20.2 mL/hr 10:04 CDT mcg/kg/min Dose/Rate Change 06/21/2017 80 27 mL/hr 10:08 CDT mcg/kg/min propofol (DIPRIVAN) injection Given 06/21/2017 10 mg INTRA-PROCEDURE MED, Starting Mon 10:03 CDT 06/21/17 at 1002, Until 06/21/17 at 1018, Anesthesia Intra-op Given 06/21/2017 20 mg 10:04 CDT Given 06/21/2017 10 mg 10:06 CDT sodium chloride 0.9 % infusion Given - New 06/21/2017 INTRA-PROCEDURE MED(CONT), Starting Mon Bag 09:38 CDT 06/21/17 at 0938, Until 06/21/17 at 1018, Anesthesia Intra-op in this encounter
--- OUTSIDE RECORDS SUMMARY | 2017-07-30 03:56 | XMS REPORT | Encounter Summary ---
Author Author [facility] Organization [facility] Address Unknown Phone Unavailable Care Team Providers Care Appliance Service Representative Name Role Phone PCP Unavailable Reason for Visit * Reason Comments Heme/Onc Care Encounter Details Date Type Department Care Team Description 06/24/[address] [facility] Luis Moody MD 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 [address] remission (HCC) (Primary [address] [place] [address] Dx);Blindness of left eye [address] [place] [address] [place] [address] contralateral [phone] eye;Pancytopenia due to chemotherapy (HCC);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HCC);Thrombocytopenia (HCC) Social History Tobacco Use Types Packs/Day Years Used Date Never Smoker Smokeless Tobacco: Never Used Alcohol Use Drinks/Week oz/Week Comments No 0 Standard 0.0 drinks or equivalent Sex Assigned at Date Recorded Not on file as of this encounter Last Filed Vital Signs Vital Sign Reading Time Taken Blood Pressure 127/65 06/24/2017 3:03 PM CDT Pulse 71 06/24/2017 3:03 PM CDT Temperature 36.6 C (97.9 F) 06/24/2017 3:03 PM CDT Respiratory Rate 14 06/24/2017 3:03 PM CDT Oxygen Saturation 98% 06/24/2017 3:03 PM CDT Inhaled Oxygen - - Concentration Weight 53.9 kg (118 lb 12.8 oz) 06/24/2017 3:03 PM CDT Height 167.6 cm (5' 5.98") 06/24/2017 3:03 PM CDT Body Mass Index 19.18 06/24/2017 3:03 PM CDT in this encounter Functional Status [...] as of this encounter Progress Notes * Juanita Ken RN - 06/24/2017 3:30 PM CDT Date of Transplant: 03/02/16 CD34 Selected boost 07/08/2016 Preparative Regimen: Fludarabine/Melphalan Fully ablative/reduced intensity/NST: KAYLEE Disease: AML (from CMMOL) Disease status at transplant: 1st CR Cytogenetic/Fish AT DIAGNOSIS: HLA Match: 8:8 Donor & Cell source: matched sib (sister) [id number] PSC CMV: both POS ABO: both O POS Consents/Studies: 8322, blood, H&P, KAYLEE Flu/Hermila allo consent Coordinator: RUDDY MCKINNON RN CMV monitoring: Reactivation 10/27 - monitor Q2W until May per MD discretion 06/09 negative EBV monitoring: N/A Chimerism results: 11/09/16 - 100% donor Transfusion parameters: Standard Electrolyte replacement goal: Standard GVHD location: Mouth Current GVHD treatment: Diphon rinse started 05/13/17 Tapers: (prednisone completed 11/16/16) PJP: Last prednisone Oct 2016, no PJP needed. Central line: none LTFU Orders placed for 03/02/2018. labs, BMBX 06/24: Reviewed EGD results, this showed inflammation but nothing else. Appetite has improved. Creatinine is elevated today, encouraged to drink more liquid. ANC is low today, which could be because of the antibiotics she's on for the toxoplasma. Will give zarxio today and repeat MRI at the end of June. Flu shot given today. Consider scheduling f/u MRI of the head at the end june, Dr. Milian to see next week and determine when to f/u. RTC 06/30 MD/lab 07/07: [facility] 07/09 Dexa scan, Endo * Luis Moody MD - 06/24/2017 3:30 PM CDT Formatting of this note may be different from the original. Date of Service: 06/24/2017 Subjective: S/p Flu/Hermila conditioning followed by MSD transplant, currently 1 year 4 months Appetite better since starting B/B However has dysphagia and GERD complaints Swallow study neg Scheduling EGD Met with palliative, mood improved Vision same History of Present Illness Patient with myelodysplastic/myeloproliferative neoplasm, morphologically favoring CMML-2, s/p 4 cycles of dacogen, progressed to AML, CR 1 after 7+3 and HIDAC x 1 Date of Transplant: 03/02/16 Preparative Regimen: Fludarabine/Melphalan Fully ablative/reduced intensity/NST: KAYLEE Disease: AML (from CMMOL) Disease status at transplant: 1st CR Cytogenetic/Fish AT DIAGNOSIS: t(7:11) HLA Match: 8:8 Donor & Cell source: matched sib (sister) [phone] PSC CMV: both POS ABO: both O POS Consents/Studies: 8322, blood, H&P, KAYLEE Flu/Hermila allo consent Coordinator: RUDDY MCKINNON RN Donna Wilde is a 61 y.o. female with a PMH of DM, HTN and HLD who presented from [facility] with a leukocytosis concerning for Leukemia. Per her daughter, in early December 2014 she developed a chronic cough which was unremitting. She then presented to due to [facility] ED with complains of weakness, [...] and referred to Dr. Óscar Jones in [place], hydrea was DC due to thrombocytopenia. She [...] HENT: Negative for congestion. Eyes: Positive for pain and visual disturbance. Respiratory: Negative for cough and shortness of breath. Cardiovascular: Positive for leg swelling. Gastrointestinal: Positive for diarrhea (Soft stool). Endocrine: Negative for cold intolerance. Genitourinary: Negative for dysuria and hematuria. Musculoskeletal: Positive for arthralgias. Skin: Negative for pallor and rash. Allergic/Immunologic: Positive for immunocompromised state. Neurological: Positive for weakness. Hematological: Does not bruise/bleed easily. Psychiatric/Behavioral: The patient is not nervous/anxious. Constitutional: Fatigue, thin build HENT: Burning sensation when she eats, improved, dysphagia persist Eyes: Status post left vitreal biopsy, left eye blind CVS: No chest pain, edema, or palpitations Respiratory: No shortness of breath, wheezing, cough, hemoptysis, or chest tightness Abdomen: Improved appetite, has GErD : No dysuria, flank pain, frequency, [...] Social HX: . Pt is originally from [place] and is mongolian speaking only. She has been living in [facility] for the past 15 years [...] before meals and at bedtime. Blood-Glucose Meter [facility] One Touch Verio meter budesonide (ENTOCORT EC) [...] type 2 diabetes mellitus, E 11.9 Insulin [place] (Disposable) 31 gauge x 1/4" ndle Use as needed for insulin administration before meals and at bedtime. lancets (ACCU-CHEK FASTCLIX) [facility] To check blood sugars before meals and at bed time. leucovorin 25 mg tab Take 1 Tab by mouth daily. levothyroxine (SYNTHROID) 50 mcg tablet Take 1 Tab by mouth daily 30 minutes before breakfast. magnesium oxide (MAG-OX) 400 mg tablet Take 400 mg by mouth. mineral oil/white petrolatum (ABSORBASE) oint apply to hands and affected areas as needed agfebzpl-olukumszx-moblvtyxvhnfn (MAXITROL) 3.5 mg/g-10,000 unit/g-0.1 % ophthalmic ointment [...] 2 Tabs by mouth four times daily. Vitals: 06/24/17 1503 BP: 127/65 Pulse: 71 Resp: 14 Temp: 36.6 C (97.9 F) TempSrc: Oral SpO2: 98% Weight: 53.9 kg (118 lb 12.8 oz) Height: 167.6 cm (65.98") Body mass index is 19.18 kg/(m^2). Vitals, BMI noted and reviewed Pain [...] Profile Lab Results Component Value Date/Time NA 134 (L) 06/17/2017 12:40 PM K 4.7 06/17/2017 12:40 PM CL 108 06/17/2017 12:40 PM CO2 23 06/17/2017 12:40 PM GAP 3 06/17/2017 12:40 PM BUN 40 (H) 06/17/2017 12:40 PM CR 1.21 (H) 06/17/2017 12:40 PM GLU 148 (H) 06/17/2017 12:40 PM Lab Results Component Value Date/Time CA 10.2 06/17/2017 12:40 PM PO4 3.9 05/04/2017 06:46 AM ALBUMIN 3.4 (L) 06/17/2017 12:40 PM TOTPROT 5.7 (L) 06/17/2017 12:40 PM ALKPHOS 163 (H) 06/17/2017 12:40 PM AST 35 06/17/2017 12:40 PM ALT 41 06/17/2017 12:40 PM TOTBILI 0.6 06/17/2017 12:40 PM GFR 45 (L) 06/17/2017 12:40 PM GFRAA 55 (L) 06/17/2017 12:40 PM CBC w/Diff Lab Results Component Value Date/Time WBC 4.7 06/17/2017 12:40 PM RBC 2.71 (L) 06/17/2017 12:40 PM HGB 10.6 (L) 06/17/2017 12:40 PM HCT 30.5 (L) 06/17/2017 12:40 PM MCV 112.5 (H) 06/17/2017 12:40 PM MCH 39.0 (H) 06/17/2017 12:40 PM MCHC 34.6 06/17/2017 12:40 PM RDW 15.9 (H) 06/17/2017 12:40 PM PLTCT 79 (L) 06/17/2017 12:40 PM MPV 8.0 06/17/2017 12:40 PM Lab Results Component Value Date/Time NEUT 49 06/17/2017 12:40 PM ANC 2.30 06/17/2017 12:40 PM LYMA 35 06/17/2017 12:40 PM ALC 1.60 06/17/2017 12:40 PM BRUCE 14 (H) 06/17/2017 12:40 PM AMC 0.70 06/17/2017 12:40 PM EOSA 1 06/17/2017 12:40 PM AEC 0.00 06/17/2017 12:40 PM BASA 1 06/17/2017 12:40 PM ABC 0.00 06/17/2017 12:40 PM Assessment and Plan: Primary Diagnosis: - 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 - 03/05/2017: BMBX in CR both by morphology and by Flow, cytogenetics 46 XX, no abnormalities - Chimerism 03/05/2017: is 100% donor donor Heme: Pancytopenia due to Chemotherapy ANC 500. Zarxiogiven today. D/W Dr. Parisa Milian and he would like to get another MRI end of June and then plan on maintenance therapy. The present antibiotics may be causing pancytopenia as well. EXHAUST AND MUFFLER REPAIRER: -Brain lesion on MRI 04/29: concerning for infection or malignancy. "Enhancing nodular medial right cerebellar lesion and numerous additional smaller enhancing juxtacortical bilateral cerebral, basal nuclei, and brainstem lesions with mild associated multifocal vasogenic edema likely reflecting leukemia. Opportunistic intracranial infection could appear similar. -No prior history of EXHAUST AND MUFFLER REPAIRER malignancy. LP 05/03/17 did not show evidence of leukemia. -CT Sinus05/01 with right maxillary mass, s/p: Bx, cultures and path negative -ID Dr. Milian following:Toxoplasma IgG positive, started on anti-toxo: sulfadiazine 1000mg PO four times daily, pyrimethamine, leucovorin 25mg MRI scan on 05/26/17 1. Decrease in size and number of multiple cerebral and cerebellar enhancing lesions. Differential considerations include improvement in EXHAUST AND MUFFLER REPAIRER leukemia or EXHAUST AND MUFFLER REPAIRER infection. 2. Resolution of the left subdural hematoma with decreased conspicuity or continued evolution of the left subarachnoid blood products. She has follow up with ID Dr. Christine Repeat MRI in end of June 2017. 3. Neuro/MSK: S/p fall at home with + LOC resulting in a traumatic Subarachnoid hemorrhage and infra orbital bleed Left -CT head 04/16: Moderate subarachnoid hemorrhage scattered throughout the bilateral hemispheric sulci -T11 compression fractureduring her fall that has remained stable -Displaced left intertrochanteric femur fractureand required surgery on 2016 for stabilization -Follow-up with orthopedics, x-rays 05/10 shows adequate healing-Currently WBAT for LLE. -Working with PT/OT at home 4. Pain control: On Ultram prn 5. Eyes: - Panuveitis and NAOIN, vision loss, left eye - Continue brimonidine, maxitrol and cyclopentoate - She has no light perception in the left eye, since early 03/2017 - Followed by ophthalmology status post vitreal biopsy 05/13-all negative, follow up with Optho Cardiac: Essential Hypertension, well controlled FEN/Renal: -Cr slight up likely meds, encouraged fluids - Replace per BMT replacement protocol ID: Prophylasis: PenVK, Acyclovir Please see EXHAUST AND MUFFLER REPAIRER section Last CD4 count above 300 in February 2017 Set up with ID follow up to address toxo therapy, MRI 05/26 significantly improved Repeat in 6 weeks. GI:Trouble swallowing. Oropharyngeal dysphagia, swallow study neg Has GERD, on PPI. EGD biopsy 06/21/17 negative, but showed erythema gastric fundus. LFT's wnl Improved appetite, since starting B/B 06/02, may start cutting back on beclomethasone Endo: BG management by endocrine, Hypothyroid on Synthroid Psych:Low dose klonopin at bedtime, mood better GvHD Staging/Grading: Chronic GvHD presentoral lichen planus, on diphon rinse RTC Weekly with GCSF and see Dr. Virk and Dr. 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 Profound impairment, one eye, Impairment level not further specified Pancytopenia due to chemotherapy (HCC) Antineoplastic chemotherapy induced pancytopenia 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HCC) Bone marrow replaced by transplant Thrombocytopenia (HCC) Thrombocytopenia, unspecified in this encounter Administered Medications Medication Order MAR Action Action Date Dose Rate Site influenza (=>6 Months)(QUADrivalent) Given 06/24/2017 0.5 mL Deltoid, (FLULAVAL) PF syringe 0.5 mL 16:25 CDT Left 0.5 mL, Intramuscular, ONCE - UNTIL ADMIN, 1 dose, Hilda 06/24/17 at 1615, - Administer when stable and temp <38.3 C (afebrile) for 24 hours. Reschedule for 0900 the next day if unable to administer. - Per hospital protocol, please discuss risks and benefits with patient prior to administration of the vaccine(s). - SQ administration is reserved for patients with bleeding disorders at the discretion of the prescriber. - NOTE: If dose unavailable, send [employer] message to pharmacy in this encounter
--- OUTSIDE RECORDS SUMMARY | 2017-07-30 03:57 | XMS REPORT | Encounter Summary ---
Author Author [facility] Organization [facility] Address Unknown Phone Unavailable Care Team Providers Care Shop Superintendent Name Role Phone PCP Unavailable Reason for Visit * Reason Comments Post Operative Visit left hip Encounter Details Date Type Department Care Team Description 06/21/2017 Office Visit [facility] Shane Sam MD Closed displaced Physicians - Orthopedics [address] [facility] intertrochanteric 1ST AND 2ND FLOOR [address] fracture of left femur [address] [place] [address] with routine healing, ORTHOPEDICS [address] [phone] subsequent encounter [place], [place] (Primary Dx) [id number] Social History Tobacco Use Types Packs/Day Years Used Date Never Smoker Smokeless Tobacco: Never Used Tobacco Cessation: Counseling Given: Yes Alcohol Use Drinks/Week oz/Week Comments No 0 Standard 0.0 drinks or equivalent Sex Assigned at Date Recorded Not on file as of this encounter Last Filed Vital Signs Vital Sign Reading Time Taken Blood Pressure 161/73 06/21/2017 11:57 AM CDT Pulse 64 06/21/2017 11:57 AM CDT Temperature - - Respiratory Rate - - Oxygen Saturation - - Inhaled Oxygen - - Concentration Weight 56.2 kg (124 lb) 06/21/2017 11:57 AM CDT Height 167.6 cm (5' 6") 06/21/2017 11:57 AM CDT Body Mass Index 20.01 06/21/2017 11:57 AM CDT in this encounter Functional Status [...] as of this encounter Progress Notes * Shane Sam MD - 06/21/2017 11:30 AM CDT Donna Nitin Wilde presents today for followup and evaluation of her left hip fracture. This was an intertrochanteric hip fracture treated with a cephalomedullary nail. Patient reports no complaints. On physical examination, she remains neurovascularly intact to her left lower extremity. All of her surgical wounds are well healed. She is able to bear full weight on her left lower extremity, but utilizes a walker as her gait is rather unsteady. X-rays obtained today include AP pelvis, as well as AP and lateral views of the left hip which demonstrate interval consolidation and healing of the fracture. The hardware is maintaining an excellent position. Impression is left intertrochanteric hip fracture. Plan: Given these findings, I would recommend the patient continue her weightbearing as tolerated status. I would recommend that she return to clinic in approximately 3 months for routine clinical and radiographic followup. I had the opportunity to discuss this with her, as well as with her family members prior to her departure from the clinic and the opportunity to answer all of their questions. (DOC:[id number]) in this encounter Plan of Treatment Date Type Specialty Care Team Description 06/28/2017 Procedure Pass Infectious Diseases as of this encounter Visit Diagnoses Diagnosis Closed displaced intertrochanteric fracture of left femur with routine healing , subsequent encounter - Primary in this encounter
--- OUTSIDE RECORDS SUMMARY | 2017-07-30 03:57 | XMS REPORT | Encounter Summary ---
Author Author [facility] Organization [facility] Address Unknown Phone Unavailable Care Team Providers Care Elevator Erector Helper Name Role Phone PCP Unavailable Reason for Visit * Reason Comments Heme/Onc Care Encounter Details Date Type Department Care Team Description 06/17/2017 [facility] Annalee Virk MD Encounter Cancer Center - BMT [address] Treatment [address] [address] [address] [place] [address] [phone] Social History Tobacco Use Types Packs/Day Years [...] E 11.9 diabetes mellitus, E 11.9 Insulin [place] Use as needed for insulin 400 each [...] 06/03/2017 (VEETID) 250 mg tablet twice daily. albuterol (VENTOLIN HFA, Inhale 2 Puffs by mouth 3 Inhaler 3 201606/21/2017 PROAIR HFA, PROVENTIL into the lungs every 4 HFA) 90 mcg/actuation hours as needed for inhaler Wheezing or Shortness of Breath. Shake well before use. BECLOMETHASONE Take 1 mL by mouth four 240 mL 3 06/02/20172016 DIPROPIONATE times daily. For (BECLOMETHASONE(#) IN appetite. CORN OIL) 2 mg/mL blood sugar diagnostic 1 Strip before meals and 100 Strip 6 201607/09/2017 (ONETOUCH VERIO) test at bedtime. strip clonazePAM (KLONOPIN) 0.5 Take 0.5 Tabs by mouth at 60 Tab 5 201606/21/2017 mg tablet bedtime daily. ergocalciferol (VITAMIN Take 1 capsule by mouth 3 capsule 0 201606/21/2017 D-2) 50,000 unit every 7 days for 21 days. capsuleIndications: 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HCC) leucovorin 25 mg tab Take 1 Tab by mouth 30 Tab 3 05/06/20172016 daily. levothyroxine (SYNTHROID) Take 1 Tab by mouth daily 90 Tab 3 201607/09/2017 50 mcg tablet 30 minutes before breakfast. mineral oil/white apply to hands and 09/18/2016 07/28/2017 petrolatum (ABSORBASE) affected areas as needed oint montelukast (SINGULAIR) Take 1 tablet by mouth at 90 tablet 3 201606/21/2017 10 mg tablet bedtime daily. zqtauihd-vysxdztiw-thoylu Apply 1 cm to left eye as [...] Diseases as of this encounter Results * VRE SCREEN (06/17/2017 12:45 PM) Component Value Ref Range Battery Name VRE SCREEN Specimen Description PERIRECTAL SWAB Special Requests NONE Culture VRE ISOLATED Complete susceptibility testing is not performed on surveillance culture. Positive cultures indicate carrier status and do not by themselves indicate a need for treatment. Report Status FINAL 06/18/2017 Specimen Performing Laboratory Perirectal Swab [facility] [address] [place] [address] * CMV QUANT PCR-BLOOD (06/17/2017 12:40 PM) Component Value Ref Range IU/mL CMV Blood <50 IU/mL The test method detects and quantitates CMV DNA using the Amaya RealTime assay, and is approved by the FDA for monitoring hematopoietic stem cell transplant patients who are undergoing anti-CMV therapy. Please correlate results with the clinical status of the patient. NOTE NEW METHODOLOGY LOG10 CMV <1.7 CMV Bld Copies/mL <32 Based on this test standardized to the WHO Standard, copies/mL equals IU/mL divided by 1.56 CMV DNA Quant PCR CMV DNA NOT DETECTED CMVND-CMV DNA NOT DETECTED [IU]/mL Specimen Performing Laboratory Blood [facility]IN [facility] [address] [place] [address] * MAGNESIUM (06/17/2017 12:40 PM) Component Value Ref Range Magnesium 1.6 1.6 - 2.6 mg/dL Specimen Performing Laboratory Blood [facility] [address] [place] [address] * COMPREHENSIVE METABOLIC PANEL (06/17/2017 12:40 PM) Component Value Ref Range Sodium 134 (L) 137 - 147 MMOL/L Potassium 4.7 3.5 - 5.1 MMOL/L Chloride 108 98 - 110 MMOL/L Glucose 148 (H) 70 - 100 MG/DL Blood Urea Nitrogen 40 (H) 7 - 25 MG/DL Creatinine 1.21 (H) 0.4 - 1.00 MG/DL Calcium 10.2 8.5 - 10.6 MG/DL Total Protein 5.7 (L) 6.0 - 8.0 G/DL Total Bilirubin 0.6 0.3 - 1.2 MG/DL Albumin 3.4 (L) 3.5 - 5.0 G/DL Alk Phosphatase 163 (H) 25 - 110 U/L AST (SGOT) 35 7 - 40 U/L CO2 23 21 - 30 MMOL/L ALT (SGPT) 41 7 - 56 U/L Anion Gap 3 3 - 12 eGFR Non 45 (L) >60 mL/min Comment: The eGFR is not validated for use in drug dosing adjustments. Continue to use estimated creatinine clearance per dosing reference text. Please contact the Clinical Pharmacist for questions. eGFR 55 (L) >60 mL/min Comment: The eGFR is not validated for use in drug dosing adjustments. Continue to use estimated creatinine clearance per dosing reference text. Please contact the Clinical Pharmacist for questions. Specimen Performing Laboratory Blood [facility] [address] [place] [address] * CBC AND DIFF (06/17/2017 12:40 PM) Component Value Ref Range White Blood Cells 4.7 4.5 - 11.0 K/UL RBC 2.71 (L) 4.0 - 5.0 M/UL Hemoglobin 10.6 (L) 12.0 - 15.0 GM/DL Hematocrit 30.5 (L) 36 - 45 % MCV 112.5 (H) 80 - 100 FL MCH 39.0 (H) 26 - 34 PG MCHC 34.6 32.0 - 36.0 G/DL RDW 15.9 (H) 11 - 15 % Platelet Count 79 (L) 150 - 400 K/UL MPV 8.0 7 - 11 FL Neutrophils 49 41 - 77 % Lymphocytes 35 24 - 44 % Monocytes 14 (H) 4 - 12 % Eosinophils 1 0 - 5 % Basophils 1 0 - 2 % Absolute Neutrophil Count 2.30 1.8 - 7.0 K/UL Absolute Lymph Count 1.60 1.0 - 4.8 K/UL Absolute Monocyte Count 0.70 0 - 0.80 K/UL Absolute Eosinophil Count 0.00 0 - 0.45 K/UL Absolute Basophil Count 0.00 0 - 0.20 K/UL Specimen Performing Laboratory Blood [facility] [address] [place] [address] in this encounter Visit Diagnoses Diagnosis 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 in this encounter
--- OUTSIDE RECORDS SUMMARY | 2017-07-30 03:57 | XMS REPORT | Encounter Summary ---
Author Author [facility] Organization [facility] Address Unknown Phone Unavailable Care Team Providers Care Computer Engineering Technologist Name Role Phone PCP Unavailable Reason for Visit * Reason Comments Fatigue Encounter Details Date Type Department Care Team Description 06/17/2017 Office Visit [facility] Berna Franks, ELECTRIC STOVE INSTALLER toxoplasmosis ([facility]) Cancer Center - BMT Exam (Primary Dx);Acute [address] myeloid leukemia in [address] [address] remission ([facility]);[place] [address] [place] [address] fatigue;Anxiety and [phone] depression;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 PALLIATIVE CARE OUTPATIENT VISIT PC Outpatient Visit #: [id number] Date of Service: 06/17/2017 Referring Clinician: marta Preferred Name: Donna PCP: Ghada No PCP PC Code: [id number] ASSESSMENT Donna Nitin Wilde is a 61 y.o. 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 Long hospital stay for fall/hip fracture and then findings of lesions on MRI which were cancer vs. Infectious. MRI 05/26/17 improved. Pallaitive care following for symptoms and support as pt condition declares itself. Prognosis (Estimated): Based on current function, current medical issues, goals of care, and prognosis models, my estimated prognosis is months to years as the ELECTRIC STOVE INSTALLER lesions do not at present appear to be malignant and pt fucntion is improving. PLAN PAIN: Intensity: Pain: 0; hip pain resolved for hte most part, she is up and trying to move CURRENT REGIMEN: vicodin prn no using PLAN:tylenol only, no more need for narcs. DYSPNEA: Intensity: Shortness of Breath: 0; none CURRENT REGIMEN: none PLAN: monitor FATIGUE/DECONDITIONING: Intensity: Tiredness / Fatigue: 3;moderate CURRENT REGIMEN: exercises at home and trying to do more now, family pushing her and her motivation is a bit better PLAN: cotninue same, continue celexa INSOMNIA: Intensity: Insomnia: 4;mild, CURRENT REGIMEN: klonipin .25 q hs prn not always taking PLAN: continue NAUSEA/ANOREXIA: Intensity: Nausea: 0, Lack of Appetite: 2 pt states food sticking mid/upper esophagus. Swallow study okay today. No thrush. 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 They have had worry from diagnosis in [place] that medical providers would at some point not want to continue caring for her- at diagnosis the doctor there told her to go home and get affairs in order and they did not like that. Will need to be sensitive to that worry. I also don't have a great sense of if patient wants information herself or would want to defer to family members for decision making. If there need to be goals of care conversations, it will be important to plan to have a [employer] clerk there to assure that all information is correctly translated and shared with pt/family. PLAN: pt is improving. We have not embarked on any big goals disucsisons as pt is better. SERIOUS ILLNESS CONVERSATIONS: (include dates; if left blank not yet addressed) Illness understanding: Desire for information: Prognostic discussion: Goals: Worries: Strength comes from: Critical abilities you would not imagine being able to live without: Trade offs you would be willing or not willing to make for the possibility of more time: Family knowledge of the above: ACP conversation 08/26 inpt: discussed code status, pt opting full code at that time, stating or dtrs would speak for her if she were not able. ADVANCE CARE PLANNING: Goals: agressive Code Status: full DPOA: on file Living Will: none TPOPP: none Return to clinic:follow up prn only as pt is doing so well at present. She is fragile, we are happy to see her again if/when any new needs arise. SUBJECTIVE Reason for Visit: Christiano Wilde is a 61 y.o. female with Pertinent medical history includes AML transformed from CMML2 with t(7: 11) status post anesthesia transplant 1 year ago. Per chart review: Early April, the patient was initially transferred to [facility] for minutes at hospital following a traumatic fall. She sustained a fracture and was also found to have non-aneurysmal subarachnoid hemorrhage. Her hip fracture was stabilized with intramedullary nailing 04/19/2017. Subarachnoid hemorrhage resolved without incident. She was transferred to [facility] inpatient rehab 04/27/2017. In the course of her workup, there was some concern on imaging the patient experienced a subacute stroke. Follow-up brain MRI revealed an enhancing right cerebellar lesion and numerous smaller lesions with vasogenic edema scattered throughout the patient's brain concerning for malignancy versus opportunistic infection. The patient was transferred back to the BMT service on 04/30/2017 based on these findings. From an infectious disease standpoint, the patient has no evidence of active fungal or bacterial infection. Fungal antigens, galactomannan, and fungal cultures are pending. Toxoplasma IgG is positive, IgM is reportedly unreliable for diagnosis. Infectious disease consultants are considering adding empiric therapy for toxoplasma. A large volume lumbar puncture has been performed studies for infection and malignancy are pending. Neurosurgery consultants as stated that the risks of brain biopsy outweigh the benefits. Have watched the lesions in the patient's brain, Had repeat MRI yesterday and the lesions are improved, think it is toxo. Palliative care seeing patient in follow up for sx mgmt and support. Pain in hip is resolved now. She is taking tylenol for headache pain. Nausea and constipation presently controlled. Sleep is okay. She is accompanied by her and a friend who translated. She appears to be much stronger. More engaged.only issue new is food sticking in her esophagus. [place] Symptom Assessment Scale (ESAS-r-CS) Did not do today 06/17/2017 Symptom / Score Pain: 0 Shortness of Breath: 0 Tiredness / Fatigue: 3 Drowsiness / Sleepy: 3 Insomnia: 4 Nausea: 0 Lack of Appetite: 2 Constipation: 0 Depression: 3 Anxiety: 3 [place] Completed by: Patient 0=Best Possible 10=Worst Possible Comprehensive Pain Assessment Review of Systems Constitutional: Positive for fatigue. HENT: Positive for congestion. Eyes: Negative for pain, redness and visual disturbance. Respiratory: Negative. Cardiovascular: Negative. Gastrointestinal: Negative for nausea. Food sticking upper 1/3 of esophagus Musculoskeletal: Negative for arthralgias. Skin: Negative. Neurological: Positive for headaches. Psychiatric/Behavioral: Positive for dysphoric mood. Negative for sleep disturbance. The patient is not nervous/anxious. ONCOLOGY HISTORY No matching staging information was found for the patient. 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) DM2 (diabetes mellitus, type 2) (HCC) HLD (hyperlipidemia) HTN (hypertension) Overweight (BMI 25.0-29.9) Thyroid disorder Past Surgical History: Procedure Laterality Date SECTION, LOW TRANSVERSE COLONOSCOPY N/A 04/14/2016 COLONOSCOPY BIOPSY performed by Shane Lynn MD at ENDO/GI INTERTROCHANTERIC HIP FRACTURE SURGERY Left [place] ESOPHAGOGASTRODUODENOSCOPY TRANSORAL DIAGNOSTIC N/A 09/09/2016 ESOPHAGOGASTRODUODENOSCOPY performed by Hermila Cornejo MD at ENDO/GI [place] NASAL/SINUS ENDOSCOPY W/MAXILLARY ANTROSTOMY Left 05/03/2017 FUNCTIONAL ENDOSCOPY SINUS SURGERY WITH MAXILLARY ANTROSTOMY performed by Charlotte Montelongo MD at Main OR/Periop [place] PROPH TX N/P/PLTWR W/WO METHYLMETHACRYLATE FEMUR Left 04/19/2017 INSERTION CEPHALOMEDULLARY NAIL FEMUR performed by Shane Sam MD at [facility] OR/ Periop [place] SIGMOIDOSCOPY FLX DX W/COLLJ SPEC BR/WA IF PFRMD N/A 04/14/2016 SIGMOIDOSCOPY DIAGNOSTIC performed by Shane Lynn MD at ENDO/GI [place] SIGMOIDOSCOPY FLX DX W/COLLJ SPEC BR/WA IF PFRMD N/A 07/29/2016 SIGMOIDOSCOPY DIAGNOSTIC performed by Niharika Lam MD at ENDO/GI [place] SIGMOIDOSCOPY FLX DX W/COLLJ SPEC BR/WA IF PFRMD N/A 09/09/2016 SIGMOIDOSCOPY DIAGNOSTIC performed by Hermila Cornejo MD at ENDO/GI [place] SIGMOIDOSCOPY FLX W/BIOPSY SINGLE/MULTIPLE 09/09/2016 SIGMOIDOSCOPY BIOPSY performed by Hermila Cornejo MD at ENDO/GI UPPER GASTROINTESTINAL ENDOSCOPY N/A 04/14/2016 ESOPHAGOGASTRODUODENOSCOPY performed by Shane Lynn MD at ENDO/GI UPPER GASTROINTESTINAL ENDOSCOPY N/A 04/14/2016 ESOPHAGOGASTRODUODENOSCOPY BIOPSY performed by Shane Lynn MD at ENDO/GI UPPER GASTROINTESTINAL ENDOSCOPY N/A 07/29/2016 ESOPHAGOGASTRODUODENOSCOPY performed by Niharika Lam MD at ENDO/GI Family History Problem Relation [...] Concern Not on file Social History Narrative OBJECTIVE There were no vitals filed for this visit. There is no height or weight on file to calculate BMI. EXAM General appearance: no acute distress, sitting in wheel chair verbal, no grimace ,thin, more energy and engagement today than I have ever seen Eyes: open, no discharge, no icterus Lungs: no secretions, no acc muscle use, no apnea, CTAB Heart: RRR + 2/6 murmur Abdomen: non distended, soft, nontender, minimal bowel sounds Extremities: moves all extremities, no edema Neurologic: no seizures, no myoclonus, no neuro deficits, oriented to time, person and place Psych: calm, samuel affect, normal memory and judgement Skin: warm, dry, no lesions ECOG PS: 1, Restricted in physically strenuous activity but ambulatory and able to carry out work of a light or sedentary nature, e.g., light house work, office work Palliative Performance Status: 70 MEDICATIONS acetaminophen (TYLENOL) 325 mg tablet Take 2 [...] type 2 diabetes mellitus, E 11.9 Insulin [place] (Disposable) 31 gauge x 1/4" ndle Use [...] 1 tablet by mouth at bedtime daily. chmrhrqo-rtbkgiyqe-bmswhagfbeuap (MAXITROL) 3.5 mg/g-10,000 unit/g-0.1 % ophthalmic ointment [...] 2 Tabs by mouth four times daily. RESULTS REVIEW Imaging and labs reviewed CBC Lab Results Component Value Date/Time WBC 4.7 06/17/2017 12:40 PM HGB 10.6 (L) 06/17/2017 12:40 PM PLTCT 79 (L) 06/17/2017 12:40 PM Lab Results Component Value Date/Time NEUT 49 06/17/2017 12:40 PM ANC 2.30 06/17/2017 12:40 PM Comprehensive Metabolic Profile Lab Results Component Value Date/Time NA 134 (L) 06/17/2017 12:40 PM K 4.7 06/17/2017 12:40 PM BUN 40 (H) 06/17/2017 [...] PM GFRAA 55 (L) 06/17/2017 12:40 PM ADMINISTRATIVE Berna Franks MD, [facility] Palliative Care Attending Pager [phone] Nights/Weekends - Page [phone] for Palliative Care On-Call NEW - OUTPT Time [id number] [phone] 20 50 95 49750 30 60 105 13056 45 75 120 42401 60 90 135 F/U - OUTPT Time [id number] [phone] 10 40 85 [id number] 15 45 90 [id number] 25 55 100 [id number] 40 70 115 in this encounter Plan of Treatment Date Type Specialty Care Team Description 06/28/2017 Procedure Pass Infectious Diseases as of this encounter Visit Diagnoses Diagnosis ELECTRIC STOVE INSTALLER toxoplasmosis (HCC) - 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
--- OUTSIDE RECORDS SUMMARY | 2017-07-30 03:57 | XMS REPORT | Encounter Summary ---
Author Author [facility] Organization [facility] Address Unknown Phone Unavailable Care Team Providers Care Lens Molding Equipment Operator Name Role Phone PCP Unavailable Reason for Referral * Consult, Test & Treat (Routine) Status Reason Specialty Diagnoses / Referred By Referred To Procedures Contact Contact New Request Specialty Gastroenterology Diagnoses Annalee Virk MD [facility] Dysphagia, [address] Required unspecified type [address] MED [address] [place], [place] [id number] Phone: Fax: Reason for Visit * Reason Comments Heme/Onc Care Encounter Details Date Type Department Care Team Description 06/17/2017 Office Visit [facility] Annalee Virk MD Dysphagia, unspecified Cancer Center - BMT Exam [address] type (Primary Dx);H/O [address] stem cell transplant [address] [place] [address] (HCC) [place] [address] [phone] Social History Tobacco Use Types Packs/Day Years Used Date Never Smoker Smokeless Tobacco: Never Used Alcohol Use Drinks/Week oz/Week Comments No 0 Standard 0.0 drinks or equivalent Sex Assigned at Date Recorded Not on file as of this encounter Last Filed Vital Signs Vital Sign Reading Time Taken Blood Pressure 155/65 06/17/2017 12:53 PM CDT Pulse 58 06/17/2017 12:53 PM CDT Temperature 36.3 C (97.3 F) 06/17/2017 12:53 PM CDT Respiratory Rate 14 06/17/2017 12:53 PM CDT Oxygen Saturation 100% 06/17/2017 12:53 PM CDT Inhaled Oxygen - - Concentration Weight 53 kg (116 lb 12.8 oz) 06/17/2017 12:53 PM CDT Height 162.6 cm (5' 4.02") 06/17/2017 12:53 PM CDT Body Mass Index 20.04 06/17/2017 12:53 PM CDT in this encounter Functional Status [...] this encounter Instructions * Patient Instructions - Teresa Koch RN - 06/17/2017 12:30 PM CDT Do not eat after midnight on 06/24; may take oral meds until 6am. Arrive at Endoscopy by 6:45am for an 8am procedure. Must bring driver messenger. in this encounter Progress Notes * Annalee Virk MD - 06/17/2017 12:30 PM CDT Formatting of this note may be different from the original. 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 female with a PMH of DM, HTN and HLD who presented from [facility] ED with a leukocytosis concerning for Leukemia. Per her daughter, in early December 2014 she developed a chronic cough which was unremitting. She then presented to due to [facility] ED with complains of weakness, fatigue and [...] and referred to Dr. Óscar Jones in [place], hydrea was DC due to thrombocytopenia. She [...] of Systems Constitutional: Fatigue, thin build HENT: Burning sensation [...] Social HX: . Pt is originally from [place] and is ivorian speaking only. She has been living in [facility] for the past 15 years [...] before meals and at bedtime. Blood-Glucose Meter [facility] One Touch Verio meter budesonide (ENTOCORT EC) [...] type 2 diabetes mellitus, E 11.9 Insulin [place] (Disposable) 31 gauge x 1/4" ndle Use [...] to hands and affected areas as needed fundbxdl-ykfuycpft-byiayusvvvscg (MAXITROL) 3.5 mg/g-10,000 unit/g-0.1 % ophthalmic ointment [...] Tabs by mouth four times daily. Vitals: 06/17/17 1253 BP: 155/65 Pulse: 58 Resp: 14 Temp: 36.3 C (97.3 F) TempSrc: Oral SpO2: 100% Weight: 53 kg (116 lb 12.8 oz) Height: 162.6 cm (64.02") Body mass index is 20.04 kg/(m^2). Vitals, BMI noted and reviewed Pain [...] conditioning followed by MSD transplant, currently 15 month. - 03/05/2017: BMBX in CR both by morphology and by Flow, cytogenetics 46 XX, no abnormalities - Chimerism 03/05/2017: is 100% donor donor FIELD AGRONOMIST: -Brain lesion on MRI 04/29: concerning for infection or malignancy. "Enhancing nodular medial right cerebellar lesion and numerous additional smaller enhancing juxtacortical bilateral cerebral, basal nuclei, and brainstem lesions with mild associated multifocal vasogenic edema likely reflecting leukemia. Opportunistic intracranial infection could appear similar. -No prior history of FIELD AGRONOMIST malignancy. LP 05/03/17 did not show evidence of leukemia. -CT Sinus05/01 with right maxillary mass, s/p: Bx, cultures and path negative -ID Dr. Milian following:Toxoplasma IgG positive, started on anti-toxo: sulfadiazine 1000mg PO four times daily, pyrimethamine, leucovorin 25mg MRI scan on 05/26/17 1. Decrease in size and number of multiple cerebral and cerebellar enhancing lesions. Differential considerations include improvement in FIELD AGRONOMIST leukemia or FIELD AGRONOMIST infection. 2. Resolution of the left subdural hematoma with decreased conspicuity or continued evolution of the left subarachnoid blood products. She has follow up with ID Dr. Christine 3. Neuro/MSK: S/p fall at home with [...] biopsy 05/13-all negative, follow up with Optho Heme: - Dropping counts, GCSF for ANC < 1000, likely multifactorial: Drugs ( sulfadiazine, pyrimethamine,) vs infection vs GVHD Cardiac: Essential Hypertension, well controlled FEN/Renal: -Cr slight up likely meds, encouraged fluids - Replace per BMT replacement protocol - Hyper K, will count down on her KCL, recheck labs latter this week near home ID: Prophylasis: PenVK, Acyclovir Please see FIELD AGRONOMIST section Last CD4 count above 300 in February 2017 Set up with ID follow up to address toxo therapy, MRI 05/26 significantly improved GI:Trouble swallowing. Oropharyngeal dysphagia, swallow study neg Has GErD, start PPI and refer for EGD ? gvhd related strictures ? LFT's wnl Improved appetite, since starting B/B 06/02, may start cutting back on beclomethasone Endo: BG management by endocrine, Hypothyroid on Synthroid Psych:Low dose klonopin at bedtime, mood better GvHD Staging/Grading: Chronic GvHD presentoral lichen planus, on diphon rinse RTC 06/21 Ortho follow up 07/07: [facility] 07/09 Dexa scan, Endo 07/09 Dexa scan, Endo * Amairani Recinos - 06/17/2017 12:30 PM CDT Formatting of this note may be different from the original. Date of Service: 06/17/2017 Subjective: S/p Flu/Hermila conditioning followed by MSD transplant, currently 15 months Recent prolonged admission after LOC and fall resulting in traumatic SAH and left hip fracture s/p ORIF of left intertrochanteric and trochanteric fractures She was in rehab but got readmitted for FIELD AGRONOMIST lesions on MRI, extensive work only positive for IgG toxo, patient currently on empiric therapy MRI shows significant improvement Reports a poor appetite History of Present Illness Patient with myelodysplastic/myeloproliferative neoplasm, morphologically favoring CMML-2, s/p 4 cycles of dacogen, 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 female with a PMH of DM, HTN and HLD who presented from [facility] ED with a leukocytosis concerning for Leukemia. Per her daughter, in early December 2014 she developed a chronic cough which was unremitting. She then presented to due to [facility] ED with complains of weakness, fatigue and [...] and referred to Dr. Óscar Jones in [place], hydrea was DC due to thrombocytopenia. She [...] of Systems Constitutional: Fatigue, thin build HENT: Burning sensation when she eats Eyes: Status post left vitreal biopsy, left eye blind CVS: No chest pain, edema, or palpitations Respiratory: No shortness of breath, wheezing, cough, hemoptysis, or chest tightness Abdomen: Poor appetite poor p.o. intake : No dysuria, flank pain, frequency, hematuria, [...] Pt is originally from [place] and is ivorian speaking only. She has been living in [facility] for the past 15 years [...] before meals and at bedtime. Blood-Glucose Meter [facility] One Touch Verio meter budesonide (ENTOCORT EC) [...] type 2 diabetes mellitus, E 11.9 Insulin [place] (Disposable) 31 gauge x 1/4" ndle Use as needed for insulin administration before meals and at bedtime. lancets (ACCU-CHEK FASTCLIX) [facility] To check blood sugars before meals and at bed time. leucovorin 25 mg tab Take 1 Tab by mouth daily. levothyroxine (SYNTHROID) 50 mcg tablet Take 1 Tab by mouth daily 30 minutes before breakfast. mineral oil/white petrolatum (ABSORBASE) oint apply to hands and affected areas as needed montelukast (SINGULAIR) 10 mg tablet Take 1 tablet by mouth at bedtime daily. buzfdehs-ykvdwkxmz-qdjtejmhzzgxs (MAXITROL) 3.5 mg/g-10,000 unit/g-0.1 % ophthalmic ointment Apply 1 cm to left eye as directed twice daily. penicillin V potassium (VEETID) 250 [...] Tabs by mouth four times daily. Vitals: 06/17/17 1253 BP: 155/65 Pulse: 58 Resp: 14 Temp: 36.3 C (97.3 F) TempSrc: Oral SpO2: 100% Weight: 53 kg (116 lb 12.8 oz) Height: 162.6 cm (64.02") Body mass index is 20.04 kg/(m^2). Vitals, BMI noted and reviewed Pain [...] Results Component Value Date/Time NA 135 (L) 06/09/2017 01:24 PM K 3.1 (L) 06/09/2017 01:24 PM CL 105 06/09/2017 01:24 PM CO2 23 06/09/2017 01:24 PM GAP 7 06/09/2017 01:24 PM BUN 35 (H) 06/09/2017 01:24 PM CR 1.13 (H) 06/09/2017 01:24 PM GLU 213 (H) 06/09/2017 01:24 PM Lab Results Component Value Date/Time CA 10.3 06/09/2017 01:24 PM PO4 3.9 05/04/2017 06:46 AM ALBUMIN 3.4 (L) 06/09/2017 01:24 PM TOTPROT 5.8 (L) 06/09/2017 01:24 PM ALKPHOS 195 (H) 06/09/2017 01:24 PM AST 39 06/09/2017 01:24 PM ALT 40 06/09/2017 01:24 PM TOTBILI 0.6 06/09/2017 01:24 PM GFR 49 (L) 06/09/2017 01:24 PM GFRAA 59 (L) 06/09/2017 01:24 PM CBC w/Diff Lab Results Component Value [...] conditioning followed by MSD transplant, currently 15 month. - 03/05/2017: BMBX in CR both by morphology and by Flow, cytogenetics 46 XX, no abnormalities - Chimerism 03/05/2017: is 100% donor donor FIELD AGRONOMIST: -Brain lesion on MRI 04/29: concerning for infection or malignancy. "Enhancing nodular medial right cerebellar lesion and numerous additional smaller enhancing juxtacortical bilateral cerebral, basal nuclei, and brainstem lesions with mild associated multifocal vasogenic edema likely reflecting leukemia. Opportunistic intracranial infection could appear similar. -No prior history of FIELD AGRONOMIST malignancy. LP 05/03/17 did not show evidence of leukemia. -CT Sinus05/01 with right maxillary mass, s/p: Bx, cultures and path negative -ID Dr. Milian following:Toxoplasma IgG positive, started on anti-toxo: sulfadiazine 1000mg PO four times daily, pyrimethamine, leucovorin 25mg MRI scan on 05/26/17 1. Decrease in size and number of multiple cerebral and cerebellar enhancing lesions. Differential considerations include improvement in FIELD AGRONOMIST leukemia or FIELD AGRONOMIST infection. 2. Resolution of the left subdural hematoma with decreased conspicuity or continued evolution of the left subarachnoid blood products. 3. Neuro/MSK: S/p fall at home with [...] biopsy 05/13-all negative, follow up with Optho Heme: - Dropping counts, GCSF for ANC < 1000, likely multifactorial: Drugs ( sulfadiazine, pyrimethamine,) vs infection vs GVHD Cardiac: Essential Hypertension, well controlled FEN/Renal: -Cr slight up likely meds, encouraged fluids - Replace per BMT replacement protocol - Hyper K, will count down on her KCL, recheck labs latter this week near home ID: Prophylasis: PenVK, Acyclovir Please see FIELD AGRONOMIST section Last CD4 count above 300 in February 2017 Set up with ID follow up to address toxo therapy, MRI 05/26 significantly improved GI:Trouble swallowing. Oropharyngeal dysphagia. Schedule for video esophagography and /Swallow evaluation LFT's improving Poor appetite, starting B/B 06/02 Endo: BG management by endocrine, Hypothyroid on Synthroid Psych:Low dose klonopin at bedtime, dysphoric mood per family GvHD Staging/Grading: Chronic GvHD presentoral lichen planus, on diphon rinse Dropping counts likely from antibiotics vs infections vs GVHD, needs close monitoring, labs twice a week, to be faxed to us from local clinic RTC 06/09 LabsMD (cbc,cmp,cmv,vre) 06/17: Video Swallow Study, Spriometry, LabsMD, Palliative Care Physician 06/21 Ortho follow up 07/07: [facility] 07/09 Dexa scan, Endo 07/09 Dexa scan, Endo * Teresa Koch RN - 06/17/2017 12:30 PM CDT Date of Transplant: 03/02/16 CD34 Selected boost 07/08/2016 Preparative Regimen: Fludarabine/Melphalan Fully ablative/reduced intensity/NST: KAYLEE 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 labs, BMBX 06/17 Reports dysphagia, with burning to epigastric area. Swallow study normal; Prilosec ordered; EGD scheduled. Reports persistent vision loss to OS; being managed by [facility]. Seen by palliative care today. AVS provided, including NPO instructions for EGD. Pt. Verbalized understanding via use of family inspector machine cut glass (pt declined use of phone translation). RTC 06/21 Ortho follow up 06/24: EGD; lab/MD 07/07: [facility] 07/09 Dexa scan, Endo in this encounter Plan of Treatment Date Type Specialty Care Team Description 06/28/2017 Procedure Pass Infectious Diseases Name Priority Associated Diagnoses Order Schedule AMB REFERRAL TO GI LAB FOR PROCEDURE Routine Dysphagia, unspecified Ordered: 06/17/2017 type as of this encounter Results * CMV [...] DETECTED [IU]/mL Specimen Performing Laboratory Blood [facility] [address] [place] [address] * MAGNESIUM (06/24/2017 2:57 PM) Component Value Ref Range Magnesium 1.7 1.6 - 2.6 mg/dL Specimen Performing Laboratory Blood [facility] [address] [place] [address] * COMPREHENSIVE METABOLIC PANEL (06/24/2017 2:57 PM) [...] Pharmacist for questions. Specimen Performing Laboratory Blood [facility] [address] [place] [address] * CBC AND DIFF (06/24/2017 2:57 PM) [...] - 0.20 K/UL Specimen Performing Laboratory Blood [facility] [address] [place] [address] in this encounter Visit Diagnoses Diagnosis Dysphagia, unspecified type - Primary H/O stem cell transplant (HCC) Peripheral stem cells replaced by transplant in this encounter
--- OUTSIDE RECORDS SUMMARY | 2017-07-30 03:57 | XMS REPORT | Encounter Summary ---
Author Author [facility] Organization [facility] Address Unknown Phone Unavailable Care Team Providers Care School Bus Aide Name Role Phone PCP Unavailable Reason for Visit * Auth/Cert Status Reason Specialty Diagnoses / Referred By Referred To Procedures Contact Contact Diagnoses Dysphagia, unspecified type UNKNOWN P rocedures NM ESOPHAGOGASTRODU ODENOSCOPY TRANSORAL DIAGNOSTIC ESOPHAGOGASTRODU ODENOSCOPY Encounter Details Date Type Department Care Team Description 06/21/2017 [facility] Russel Cornejo MD Dysphagia, unspecified Encounter Endoscopy [address] [place] [address] [place] [address] [phone] Social History Tobacco Use Types Packs/Day Years [...] or concerns after your procedure please call [phone] M-F 8am-5:00 pm. After 5:00 pm, holidays or weekends call and ask for the GI Doctor water filtration technician. in this encounter Medications at Time of [...] hours as needed for Cough. Blood-Glucose Meter [facility] One Touch Verio meter 1 Each 0 [...] E 11.9 diabetes mellitus, E 11.9 Insulin [place] Use as needed for insulin 400 each [...] petrolatum (ABSORBASE) affected areas as needed oint jmchishz-xgpsezwyi-iqywiv Apply 1 cm to left eye as [...] AM CDT Due to language barrier, an mva operator was present during the history-taking and subsequent discussion (and for part of the physical exam) with this patient. Receiving Inspector mode: In person Receiving Inspector/ ID Number: Cora Wilde [id number] * Va Butt RN - 06/17/2017 3:41 PM CDT Extrusion Press Operator request placed for date of procedure to meet patient at Admissions at 6:45 AM. * Va Butt RN - 06/17/2017 3:29 PM CDT BMT Clinic called to schedule 'Urgent' EGD for patient, reviewed pre procedure instructions with RN, patient should not have anything by mouth after midnight, patient in clinic at this time, RN will instruct patient on pre procedure instructions via Extrusion Press Operator. Patient does not take anticoagulants, instructed RN [...] at ENDO/GI INTERTROCHANTERIC HIP FRACTURE SURGERY Left NM ESOPHAGOGASTRODUODENOSCOPY TRANSORAL DIAGNOSTIC N/A 09/09/2016 ESOPHAGOGASTRODUODENOSCOPY performed by Russel Cornejo MD at ENDO/GI NM NASAL/SINUS ENDOSCOPY W/MAXILLARY ANTROSTOMY Left 05/03/2017 FUNCTIONAL ENDOSCOPY SINUS SURGERY WITH MAXILLARY ANTROSTOMY performed by Charlotte Montelongo MD at Main OR/Periop NM PROPH TX N/P/PLTWR W/WO METHYLMETHACRYLATE FEMUR Left 04/19/2017 INSERTION CEPHALOMEDULLARY NAIL FEMUR performed by Shane Sam MD at Main OR/ Periop NM SIGMOIDOSCOPY FLX DX W/COLLJ SPEC BR/WA IF PFRMD N/A 04/14/2016 SIGMOIDOSCOPY DIAGNOSTIC performed by Shane Lynn MD at ENDO/GI NM SIGMOIDOSCOPY FLX DX W/COLLJ SPEC BR/WA IF PFRMD N/A 07/29/2016 SIGMOIDOSCOPY DIAGNOSTIC performed by Niharika Lam MD at ENDO/GI NM SIGMOIDOSCOPY FLX DX W/COLLJ SPEC BR/WA IF PFRMD N/A 09/09/2016 SIGMOIDOSCOPY DIAGNOSTIC performed by Russel Cornejo MD at ENDO/GI NM SIGMOIDOSCOPY FLX W/BIOPSY SINGLE/MULTIPLE 09/09/2016 SIGMOIDOSCOPY BIOPSY [...] before meals and at bedtime. Blood-Glucose Meter [facility] One Touch Verio meter budesonide (ENTOCORT EC) [...] type 2 diabetes mellitus, E 11.9 Insulin [place] (Disposable) 31 gauge x 1/4" ndle Use [...] to hands and affected areas as needed wvbhfmrs-svqdnpqok-ppdunwdcsftvw (MAXITROL) 3.5 mg/g-10,000 unit/g-0.1 % ophthalmic ointment [...] Component Value Ref Range PATHOLOGY REPORT [facility] [email or web address] Tricia Jerry MD, PhD, Director of Anatomic Pathology Department of Pathology and Laboratory Medicine [address] [place] [id number] Surgical Pathology Office: [phone] SURGICAL PATHOLOGY REPORT NAME: DONNA PITTS SURG PATH #: [id number] MR #: [id number] SPECIMEN CLASS: SR BILLING #: [id number] ALT ID #: LOCATION: [facility] DATE OF PROCEDURE: 06/21/2017 AGE: 61 SEX: [...] Nitin Thompson Procedure Date: 06/21/2017 9:54 AM [facility]: [id number] Date of : 1955 Gender: Female Attending Physician: Russel Cornejo MD Procedure: Upper GI endoscopy Indications: Dy sphagia. Patient with myelodysplastic/myeloproliferative neoplasm, morphologically favoring CMML-2, s/p 4 cycles of dacogen, progressed to AML, CR 1 after 7+3 and HIDAC x 1 Date of Transplant: 03/02/16 Providers: Russel Cornejo MD (Doctor), Bryce Morales RN (Nurse), Mesfin Ledesmaician (Blending Supervisor) Referring Physician: Annalee Virk Medications: Mo nitored [...] 23 seconds Procedure Code(s): --- Professional --- 01922, Esophagogastroduodenoscopy, flexible, transoral; with biopsy, single or multiple Diagnosis Code(s): --- Professional --- K22.8, Other specified diseases of esophagus K31.89, Other diseases of stomach and duodenum K25.9, Gastric ulcer, unspecified as acute or chronic, without hemorrhage or perforation R13.10, Dysphagia, unspecified CPT copyright 2016 [employer]. All rights reserved. The codes documented in this report are preliminary and upon precision inspector review may be revised to meet current [...] Specimen Performing Laboratory [facility] [address] [place] [address] in this encounter Visit Diagnoses Diagnosis Dysphagia, [...]
--- OUTSIDE RECORDS SUMMARY | 2017-07-30 03:58 | XMS REPORT | Encounter Summary ---
Author Author [facility] Organization [facility] Address Unknown Phone Unavailable Care Team Providers Care Sewer Pipe Press Operator Name Role Phone PCP Unavailable Encounter Details Date Type Department Care Team Description 06/16/2017 Orders Only [facility] Annalee Virk MD 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 [address] remission (HCC) (Primary [address] Dx) [address] [place] [address] [place] [id number] [phone] Social History Tobacco Use Types Packs/Day Years [...] Performing Laboratory [facility] [address] [place] [address] * CMV QUANT PCR-BLOOD (06/17/2017 12:40 PM) [...] Specimen Performing Laboratory Blood [facility] [address] [place] [address] * MAGNESIUM (06/17/2017 12:40 PM) Component Value Ref Range Magnesium 1.6 1.6 - 2.6 mg/dL Specimen Performing Laboratory Blood [facility] [address] [place] [address] * COMPREHENSIVE METABOLIC PANEL (06/17/2017 12:40 PM) [...] Pharmacist for questions. Specimen Performing Laboratory Blood [facility] [address] [place] [address] * CBC AND DIFF (06/17/2017 12:40 PM) [...] - 0.20 K/UL Specimen Performing Laboratory Blood [facility] [address] [place] [address] in this encounter Visit Diagnoses Diagnosis 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remission (HCC) - Primary 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remission in this encounter
--- OUTSIDE RECORDS SUMMARY | 2017-07-30 03:58 | XMS REPORT | Encounter Summary ---
Author Author [facility] Organization [facility] Address Unknown Phone Unavailable Care Team Providers Care Public Works Director Name Role Phone PCP Unavailable Reason for Visit * Radiology Services Status Reason Specialty Diagnoses / Referred By Referred To Procedures Contact Contact Closed Speech Pathology / Diagnoses Alpesh Moody Jamie, Radiology Acute myeloid MD MABLE Smith,CCC-DIRECTOR OF PHYSIOTHERAPY SERVICES leukemia in [address] [facility] ([facility]) MODEL H/O bone marrow [address] transplant ([facility]) [place], [place] [address] rocedures Phone: SWALLOW MOTION [phone] SERIES Encounter Details Date Type Department Care Team Description 06/17/2017 Clinical REHAB SERVICES SPN DIRECTOR OF PHYSIOTHERAPY SERVICES Luis Moody MD Oropharyngeal dysphagia Support CARMELO KILLIAN [address] [facility] (Primary Dx) COMPREHENSIVE SPN [facility] [address] [place] [address] [place], [place] [phone] [address] [phone] Tyler Frank MA,CCC-DIRECTOR OF PHYSIOTHERAPY SERVICES Social History Tobacco Use Types Packs/Day Years [...] as of this encounter Progress Notes * Tyler Betts MA,CCC-DIRECTOR OF PHYSIOTHERAPY SERVICES - 06/17/2017 11:00 AM CDT Formatting of this note may be different from the original. SPEECH-LANGUAGE PATHOLOGY OUTPATIENT VIDEOSWALLOW ASSESSMENT [address] [facility] [phone] (home) Data Unavailable Time of service:[id number] Diagnosis: Oropharyngeal Dysphagia: R13.12 Appreciate referral for Donna Wilde, who was referred to Outpatient Speech-Language Services by DR. Moody due to odinophagia. Evaluation Summary: Donna presented with normal oropharyngeal swallow function. She did gag throughout the evaluation, likely due to changes in taste since chemotherapy. Please see below for details. Recommend an esophogram if able to tolerate barium, although upper portion of esophagus appeared to clear adequately.Following this evaluation, the results and recommendations were discussed at length with the patient and her son via a hospital sales associate key holder. The Videoswallow was reviewed and information/education provided. Swallow Recommendations: It is recommended that the patient consume Regular diet with Thin liquids. Compensatory Strategies: Small bites/sips, slow rate of intake, 90 degree positioning during eating, and always eat when alert/awake. Plan: No further Speech Therapy warranted at this time. 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 No Changes in Medications or Medical record The Patient complained of no pain during this evaluation. VIDEOSWALLOW EVALUATION: Oral Motor Evaluation: Did not evaluate due to time constraints, she reported sore in mouth/mucosa, but no thrush. Views: The patient was seated in the lateral view during the evaluation only due to gagging and poor tolerance of barium. Barium Consistencies Presented: Thin liquids: 2 teaspoons, 3 cup sips, 1 straw drinks; Evening Shade-thick liquids: 2 cups sips; Puddin teaspoons; 1/2 cracker. MBSImP: Oral Stage Summary: Lip closure for intraoral bolus containment resulted in no labial escape. Tongue control during bolus hold maintained a cohesive bolus held between tongue to palate seal. Bolus preparation and mastication resulted in timely and efficient chewing and mashing. Bolus transport/lingual motion was with brisk tongue motion. Oral residue was not observed. There was complete oral clearance. Pharyngeal Stage Summary: Initiation of the pharyngeal swallow occured as the bolus head reached the posterior angle of the mandibular ramus. Soft palate elevation resulted in no bolus between the soft palate and the pharyngeal wall. Laryngeal elevation demonstrated complete superior movement of the thyroid cartilage with complete approximation of the arytenoids to the epiglottic petiole. Anterior hyoid excursion demonstrated complete anterior movement. Epiglottic movement resulted in complete inversion. Laryngeal vestibular closure was complete, as indicated by no air or contrast within the laryngeal vestibule at the height of the swallow. Pharyngeal stripping wave was present and complete. Pharyngeal contraction could not be assessed due to logistical reasons not related to physiologic impairment. Pharyngoesophageal segment opening was completely distended for complete duration with no obstruction of bolus flow. Tongue base retraction allowed no contrast between the retracted tongue base and the posterior pharyngeal wall. Pharyngeal residue was not present. There was complete pharyngeal clearance. Cervical Esophageal Stage Summary: Esophageal clearance in the upright position could not be assessed due to logistical reasons not related to physiologic impairment.Upper esophageal clearance appeared WFL. NOMS:04/16: Normal - Patients ability to eat independently is not limited by swallow function. Swallowing is safe and efficient for all consistencies. Compensatory strategies are effectively used when needed. Penetration-Aspiration Scale:The patients swallow was consistent with a one on the 8-Point Penetration-Aspiration Scale as material did not enter laryngeal vestibule. G-Codes: Swallowing G 8996 Current Status:0% Impairment G 8997 Goal Status:0% Impairment G 8998 Discharge Status:0% Impairment Based on above evaluation and clinical judgment. If there are any questions or concerns, please feel free to contact me at .Thank you for this referral. MABLE Matos/CCC-DIRECTOR OF PHYSIOTHERAPY SERVICES BCS-S Speech Language Pathologist Board Certified Specialist in Swallowing and Swallowing Disorders [facility] (office) (pager) Thank you for this referral. Please review, sign, and fax to . Please call with questions. Physician Signature Date/Time in this encounter Plan of Treatment Date Type Specialty Care Team Description 06/28/2017 Procedure Pass Infectious Diseases as of this encounter Visit Diagnoses Diagnosis Oropharyngeal dysphagia - Primary Dysphagia, oropharyngeal phase in this encounter
--- OUTSIDE RECORDS SUMMARY | 2017-07-30 03:58 | XMS REPORT | Encounter Summary ---
Author Author [facility] Organization [facility] Address Unknown Phone Unavailable Care Team Providers Care Carpet Layer Helper Name Role Phone PCP Unavailable Encounter Details Date Type Department Care Team Description 06/15/2017 Orders Only [facility] Shane Sam MD Post- operative state Physicians - Orthopedics [address] [facility] (Primary Dx) 1ST AND 2ND FLOOR [address] [place] [address] ORTHOPEDICS [facility] [phone] [place] [address] Social History Tobacco Use Types [...] M.D. on 06/21/2017 1:47 PM. Dictated by rAash Keller M.D. on 06/21/2017 1:44 PM. in this encounter Visit Diagnoses Diagnosis Post-operative state - Primary Other postprocedural status in this encounter
--- OUTSIDE RECORDS SUMMARY | 2017-07-30 03:58 | XMS REPORT | Encounter Summary ---
Author Author [facility] Organization [facility] Address Unknown Phone Unavailable Care Team Providers Care Sales Support Advisor Name Role Phone PCP Unavailable Reason for Visit * Reason Comments Heme/Onc Care Encounter Details Date Type Department Care Team Description 06/09/2017 Office Visit [facility] Annalee Virk MD H/O stem cell transplant Cancer Center - BMT Exam [address] [facility] [address] ([facility]) (Primary Dx) [address] [facility] [address] [place] [address] [place] [id number] [phone] Social History Tobacco Use Types Packs/Day Years Used Date Never Smoker Smokeless Tobacco: Never Used Alcohol Use Drinks/Week oz/Week Comments No 0 Standard 0.0 drinks or equivalent Sex Assigned at Date Recorded Not on file as of this encounter Last Filed Vital Signs Vital Sign Reading Time Taken Blood Pressure 169/85 06/09/2017 1:23 PM CDT Pulse 68 06/09/2017 1:23 PM CDT Temperature 36.4 C (97.6 F) 06/09/2017 1:23 PM CDT Respiratory Rate 16 06/09/2017 1:23 PM CDT Oxygen Saturation 100% 06/09/2017 1:23 PM CDT Inhaled Oxygen - - Concentration Weight 53.6 kg (118 lb 3.2 oz) 06/09/2017 1:23 PM CDT Height 162.6 cm (5' 4.02") 06/09/2017 1:23 PM CDT Body Mass Index 20.28 06/09/2017 1:23 PM CDT in this encounter Functional Status [...] Progress Notes * Juanita Ken RN - 06/09/2017 2:10 PM CDT Date of Transplant: 03/02/16 CD34 Selected boost 07/08/2016 Preparative Regimen: Fludarabine/Melphalan Fully ablative/reduced intensity/NST: KAYLEE Disease: AML (from CMMOL) Disease status at transplant: 1st CR Cytogenetic/Fish AT DIAGNOSIS: HLA Match: 8:8 Donor & Cell source: matched sib (sister) [id number] PSC CMV: both POS ABO: both O POS Consents/Studies: 8322, blood, H&P, KAYLEE Flu/Hermila allo consent Coordinator: RUDDY MCKINNON RN CMV monitoring: Reactivation 10/27 - monitor Q2W until May per MD discretion 06/02 negative, 06/09 pending EBV monitoring: N/A Chimerism results: 11/09/16 - 100% donor Transfusion parameters: Standard Electrolyte replacement goal: Standard GVHD location: Mouth Current GVHD treatment: Diphone rinse started 05/13/17 Tapers: (prednisone completed 11/16/16) PJP: Last prednisone Oct 2016, no PJP needed. Central line: none LTFU Orders placed for 03/02/2018. labs, BMBX 06/09: Counts have improved this week and patient reports improved appetite. Restarted oral potassium since potassium is low today. Patient reports having a cough when laying down, instructed to start zyrtec and singulair. Given order to get CMP locally on Wednesday to recheck potassium. RTC 06/17: Video Swallow Study, Spriometry, Labs, MD, Palliative Care Physician 06/21 Ortho follow up 07/07: [facility] 07/09 Dexa scan, Endo * Annalee Virk MD - 06/09/2017 2:10 PM CDT Formatting of this note may be different from the original. Date of Service: 06/09/2017 Subjective: S/p Flu/Hermila conditioning followed by MSD transplant, currently 15 months Recent prolonged admission after LOC and fall resulting in traumatic SAH and left hip fracture s/p ORIF of left intertrochanteric and trochanteric fractures She was in rehab but got readmitted for TRANSPORT COORDINATOR lesions on MRI, extensive work only positive for IgG toxo, patient currently on empiric therapy MRI shows significant improvement Appetite better since starting B/B History of Present Illness Patient with myelodysplastic/myeloproliferative neoplasm, morphologically favoring CMML-2, s/p 4 cycles of dacogen, progressed to AML, CR 1 after 7+3 and HIDAC x 1 Date of Transplant: 03/02/16 Preparative Regimen: Fludarabine/Melphalan Fully ablative/reduced intensity/NST: KAYLEE Disease: AML (from [facility]) Disease status at transplant: 1st CR Cytogenetic/Fish AT DIAGNOSIS: t(7:11) HLA Match: 8:8 Donor & Cell source: matched sib (sister) [id number] PSC CMV: both POS ABO: both O POS Consents/Studies: 8322, blood, H&P, KAYLEE Flu/Hermila allo consent Coordinator: RUDDY MCKINNON RN Donna Wilde is a 61 y.o. female with a PMH of DM, HTN and HLD who presented from [facility] ED with a leukocytosis concerning for Leukemia. Per her daughter, in early December 2014 she developed a chronic cough which was unremitting. She then presented to due to [facility] ED with complains of weakness, [...] and referred to Dr. Óscar Jones in [place], hydrea was DC due to thrombocytopenia. She was treated with IVIG x 2 for concern of hemolytic anemia (10/13/15) Patient then started on Dacogen cycle # [...] build HENT: Burning sensation when she eats, improved Eyes: Status post left vitreal biopsy, left eye blind CVS: No chest pain, edema, or palpitations Respiratory: No shortness of breath, wheezing, cough, hemoptysis, or chest tightness Abdomen: Improved appetite : No dysuria, flank pain, frequency, hematuria, [...] Social HX: . Pt is originally from [place] and is saudi arabian speaking only. She has been living in [facility] for the past 15 [...] by mouth four times daily. For appetite. blood sugar diagnostic (ONETOUCH VERIO) test strip 1 Strip before meals and at bedtime. Blood-Glucose Meter [facility] [place] [place] One Touch Verio meter budesonide (ENTOCORT EC) [...] skin three times daily with meals. insulin glargine (LANTUS SOLOSTAR) 100 unit/mL (3 mL) injection PEN Inject 10 Units under the skin at bedtime daily. Insulin [place] (Disposable) 31 gauge x 1/4" ndle Use as needed for insulin administration before meals and at bedtime. lancets (ACCU-CHEK FASTCLIX) [facility] To check blood sugars before meals and at bed time. leucovorin 25 mg tab Take 1 Tab by mouth daily. levothyroxine (SYNTHROID) 50 mcg tablet Take 1 Tab by mouth daily 30 minutes before breakfast. mineral oil/white petrolatum (ABSORBASE) oint apply to hands and affected areas as needed uvmaarap-tihariqqx-rkcqyixdgqkdo (MAXITROL) 3.5 mg/g-10,000 unit/g-0.1 % ophthalmic ointment Apply 1 cm to left eye as directed twice daily. penicillin V potassium (VEETID) 250 mg tablet Take 3 tabs by mouth twice daily. posaconazole EC (NOXAFIL) 100 mg tablet Take 4 Tabs by mouth daily with breakfast. pyrimethamine (DARAPRIM) 25 mg tablet Take 2 Tabs by mouth daily. sulfADIAZINE 500 mg tablet Take 2 Tabs by mouth four times daily. Vitals: 06/09/17 1323 BP: 169/85 Pulse: 68 Resp: 16 Temp: 36.4 C (97.6 F) TempSrc: Oral SpO2: 100% Weight: 53.6 kg (118 lb 3.2 oz) Height: 162.6 cm (64.02") Body mass index is 20.28 kg/(m^2). Vitals, BMI noted and reviewed Pain [...] Lab Results Component Value Date/Time NA 134 06/04/2017 K 4.3 06/04/2017 CL 106 06/04/2017 CO2 23 06/04/2017 GAP 5 06/04/2017 BUN 17 06/04/2017 CR 1.17 06/04/2017 GLU 149 06/04/2017 Lab Results Component Value Date/Time CA 10.6 06/04/2017 PO4 3.9 05/04/2017 06:46 AM ALBUMIN 3.6 06/04/2017 TOTPROT 6.0 06/04/2017 ALKPHOS 233 06/04/2017 AST 45 06/04/2017 ALT 43 06/04/2017 TOTBILI 0.6 06/04/2017 GFR 47 06/04/2017 GFRAA 55 (L) 06/02/2017 12:36 PM CBC w/Diff Lab Results Component Value Date/Time WBC 3.6 (L) 06/02/2017 12:36 PM RBC 2.51 (L) 06/02/2017 12:36 PM HGB 9.7 (L) 06/02/2017 12:36 PM HCT 28.4 (L) 06/02/2017 12:36 PM MCV 113.0 (H) 06/02/2017 12:36 PM MCH 38.6 (H) 06/02/2017 12:36 PM MCHC 34.2 06/02/2017 12:36 PM RDW 17.9 (H) 06/02/2017 12:36 PM PLTCT 89 (L) 06/02/2017 12:36 PM MPV 8.5 06/02/2017 12:36 PM Lab Results Component Value Date/Time NEUT 42 06/02/2017 12:36 PM ANC 1.50 (L) 06/02/2017 12:36 PM LYMA 39 06/02/2017 12:36 PM ALC 1.40 06/02/2017 12:36 PM BRUCE 16 (H) 06/02/2017 12:36 PM AMC 0.60 06/02/2017 12:36 PM EOSA 2 06/02/2017 12:36 PM AEC 0.10 06/02/2017 12:36 PM BASA 1 06/02/2017 12:36 PM ABC 0.00 06/02/2017 12:36 PM Assessment and Plan: Primary Diagnosis: - 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 - 03/05/2017: BMBX in CR both by morphology and by Flow, cytogenetics 46 XX, no abnormalities - Chimerism 03/05/2017: is 100% donor donor TRANSPORT COORDINATOR: -Brain lesion on MRI 04/29: concerning for infection or malignancy. "Enhancing nodular medial right cerebellar lesion and numerous additional smaller enhancing juxtacortical bilateral cerebral, basal nuclei, and brainstem lesions with mild associated multifocal vasogenic edema likely reflecting leukemia. Opportunistic intracranial infection could appear similar. -No prior history of TRANSPORT COORDINATOR malignancy. LP 05/03/17 did not show evidence of leukemia. -CT Sinus05/01 with right maxillary mass, s/p: Bx, cultures and path negative -ID Dr. Milian following:Toxoplasma IgG positive, started on anti-toxo: sulfadiazine 1000mg PO four times daily, pyrimethamine, leucovorin 25mg MRI scan on 05/26/17 1. Decrease in size and number of multiple cerebral and cerebellar enhancing lesions. Differential considerations include improvement in TRANSPORT COORDINATOR leukemia or TRANSPORT COORDINATOR infection. 2. Resolution of the left subdural [...] home ID: Prophylasis: PenVK, Acyclovir Please see TRANSPORT COORDINATOR section Last CD4 count above 300 in February 2017 Set up with ID follow up to address toxo therapy, MRI 05/26 significantly improved GI:Trouble swallowing. Oropharyngeal dysphagia. Schedule for video esophagography and /Swallow evaluation LFT's improving Improved appetite, since starting B/B 06/02 Endo: BG management by endocrine, Hypothyroid on Synthroid Psych:Low dose klonopin at bedtime, mood better GvHD Staging/Grading: Chronic GvHD presentoral lichen planus, on diphon rinse RTC 06/17: Video Swallow Study, Spriometry, Labs, MD, Palliative Care Physician 06/21 Ortho follow up 07/07: [facility] 07/09 Dexa scan, Endo 07/09 Dexa scan, Endo in this encounter Plan of Treatment Date Type Specialty Care Team Description 06/28/2017 Procedure Pass Infectious Diseases as of this encounter Visit Diagnoses Diagnosis H/O stem cell transplant (HCC) - Primary Peripheral stem cells replaced by transplant in this encounter
--- OUTSIDE RECORDS SUMMARY | 2017-07-30 03:58 | XMS REPORT | Encounter Summary ---
Author Author [facility] Organization [facility] Address Unknown Phone Unavailable Care Team Providers Care Truck Assembler Name Role Phone PCP Unavailable Reason for Visit * Reason Comments Heme/Onc Care Encounter Details Date Type Department Care Team Description 06/09/2017 [facility] Annalee Virk MD Encounter Cancer Center - BMT [address] [facility] [address] [facility] [place] [address] [address] [place] [address] [phone] Social History Tobacco Use Types Packs/Day Years [...] hours as needed for Cough. Blood-Glucose Meter mis One Touch Verio meter [...] three times daily injection PEN with meals. Insulin [place] Use as needed for insulin 400 each 6 06/02/2017 (Disposable) 31 gauge x administration before 1/4" ndle meals and at bedtime. lancets (ACCU-CHEK To check blood sugars 100 Each 3 10/13/2016 FASTCLIX) MISC before meals and at bed time. penicillin V potassium Take 3 tabs by [...] capsuleIndications: 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HCC) insulin glargine (LANTUS Inject 10 Units under the 3 Package 3 201606/10/2017 SOLOSTAR) 100 unit/mL (3 skin at bedtime daily. mL) injection PEN leucovorin 25 mg tab Take 1 Tab [...] 3 201606/21/2017 10 mg tablet bedtime daily. ukghewup-pidcgjypj-lpudbn Apply 1 cm to left eye as [...] as of this encounter Progress Notes * Krysten Wong RN - 06/09/2017 1:09 PM CDT Donna iWlde 61 y.o.female History - S/p Flu/Hermila conditioning followed by MSD transplant, currently 15 months AML Today 06/09: Patient in wheelchair to clinic with caregiver. Labs drawn peripherally by Roseanne Hills MA. Dr. Virk in to see patient and she reviewed the lab work. Potassium=3.1 Patient was taken off potassium PO on 06/05 due to high level. Per orders, patient to start taking 20 mEq of PO potassium BID. Patient and caregiver verbalized understanding. Patient given copy of labs and AVS, no further questions or concerns at this time. Patient in wheelchair out of clinic in stable condition with caregiver. Krysten Wong RN 06/09/17 in this encounter Plan of Treatment Date Type Specialty Care Team Description 06/28/2017 Procedure Pass Infectious Diseases as of this encounter Results * CMV QUANT PCR-BLOOD (06/09/2017 1:24 PM) Component Value Ref Range IU/mL CMV [...] Performing Laboratory Blood [facility] [address] [place] [address] * COMPREHENSIVE METABOLIC PANEL (06/09/2017 1:24 PM) Component Value Ref Range Sodium 135 (L) 137 - 147 MMOL/L Potassium 3.1 (L) 3.5 - 5.1 MMOL/L Chloride 105 98 - 110 MMOL/L Glucose 213 (H) 70 - 100 MG/DL Blood Urea Nitrogen 35 (H) 7 - 25 MG/DL Creatinine 1.13 (H) 0.4 - 1.00 MG/DL Calcium 10.3 8.5 - 10.6 MG/DL Total Protein 5.8 (L) 6.0 - 8.0 G/DL Total Bilirubin 0.6 0.3 - 1.2 MG/DL Albumin 3.4 (L) 3.5 - 5.0 G/DL Alk Phosphatase 195 (H) 25 - 110 U/L AST (SGOT) 39 7 - 40 U/L CO2 23 21 - 30 MMOL/L ALT (SGPT) 40 7 - 56 U/L Anion Gap 7 3 - 12 eGFR Non 49 (L) >60 mL/min Comment: The eGFR is not validated for use in drug dosing adjustments. Continue to use estimated creatinine clearance per dosing reference text. Please contact the Clinical Pharmacist for questions. eGFR 59 (L) >60 mL/min Comment: The eGFR is not validated for use in drug dosing adjustments. Continue to use estimated creatinine clearance per dosing reference text. Please contact the Clinical Pharmacist for questions. Specimen Performing Laboratory Blood [facility] [address] [place] [address] * CBC AND DIFF (06/09/2017 1:24 PM) Component Value Ref Range White Blood Cells 5.0 4.5 - 11.0 K/UL RBC 2.78 (L) 4.0 - 5.0 M/UL Hemoglobin 10.7 (L) 12.0 - 15.0 GM/DL Hematocrit 30.8 (L) 36 - 45 % MCV 110.6 (H) 80 - 100 FL MCH 38.6 (H) 26 - 34 PG MCHC 34.9 32.0 - 36.0 G/DL RDW 16.8 (H) 11 - 15 % Platelet Count 88 (L) 150 - 400 K/UL MPV 7.8 7 - 11 FL Neutrophils 52 41 - 77 % Lymphocytes 32 24 - 44 % Monocytes 15 (H) 4 - 12 % Eosinophils 0 0 - 5 % Basophils 1 0 - 2 % Absolute Neutrophil Count 2.70 1.8 - 7.0 K/UL Absolute Lymph Count 1.60 1.0 - 4.8 K/UL Absolute Monocyte Count 0.80 0 - 0.80 K/UL Absolute Eosinophil Count 0.00 0 - 0.45 K/UL Absolute Basophil Count 0.00 0 - 0.20 K/UL Specimen Performing Laboratory Blood [facility] [address] [place] [address] * VRE SCREEN (06/09/2017 1:22 PM) Component Value Ref Range Battery Name VRE SCREEN Specimen Description PERIRECTAL SWAB Special Requests NONE Culture VRE ISOLATED Complete susceptibility testing is not performed on surveillance culture. Positive cultures indicate carrier status and do not by themselves indicate a need for treatment. Report Status FINAL 06/10/2017 Specimen Performing Laboratory Perirectal Swab [facility] [address] [place] [address] in this encounter Visit Diagnoses Diagnosis 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HCC) Bone marrow replaced by transplant in this encounter
--- OUTSIDE RECORDS SUMMARY | 2017-07-30 03:58 | XMS REPORT | Encounter Summary ---
Author Author [facility] Organization [facility] Address Unknown Phone Unavailable Care Team Providers Care Bpm Solution Architect Name Role Phone PCP Unavailable Encounter Details Date Type Department Care Team Description 06/10/2017 Orders Only [facility] Lakshmi Guzman, Type 2 diabetes mellitus Cancer Center - BMT RN with other specified Treatment complication (HCC) [address] (Primary Dx) [facility] [address] [place] [phone] Social History Tobacco Use Types Packs/Day Years [...] as of this encounter Visit Diagnoses Diagnosis Type 2 diabetes mellitus with other specified complication (HCC) - Primary in this encounter
--- OUTSIDE RECORDS SUMMARY | 2017-07-30 03:58 | XMS REPORT | Encounter Summary ---
Author Author [facility] Organization [facility] Address Unknown Phone Unavailable Care Team Providers Care Mushroom Growth Media Mixer Name Role Phone PCP Unavailable Encounter Details Date Type Department Care Team Description 06/10/2017 Documentation [facility] Lakshmi Guzman , Cancer Center - BMT RN Treatment [address] [facility] [address] [place] [id number] Social History Tobacco Use Types Packs/Day Years [...] as of this encounter Progress Notes * Lakshmi Guzman, RN - 06/10/2017 3:21 PM CDT Insurance will not approve Lantus Solostar , will approve Levamir FlexTouch, new order given to Amairani at main campus pharmacy. in this encounter Plan of Treatment Date Type Specialty Care Team Description 06/28/2017 Procedure Pass Infectious Diseases as of this encounter Visit Diagnoses Not on filein this encounter
--- OUTSIDE RECORDS SUMMARY | 2017-07-30 03:58 | XMS REPORT | Encounter Summary ---
Author Author [facility] Organization [facility] Address Unknown Phone Unavailable Care Team Providers Care Patrol Supervisor Name Role Phone PCP Unavailable Encounter Details Date Type Department Care Team Description 06/10/2017 Documentation [facility] Lakshmi Guzman , Cancer Center - BMT RN Treatment [address] [facility] [address] [place] [id number] Social History Tobacco Use Types Packs/Day Years [...] Notes * Lakshmi Guzman, RN - 06/10/2017 10:30 AM CDT PA for noxafil approved thru 12-08-17Geoffrey Team aware. in this encounter Plan of Treatment Date Type Specialty Care Team Description 06/28/2017 Procedure Pass Infectious Diseases as of this encounter Visit Diagnoses Not on filein this encounter
--- OUTSIDE RECORDS SUMMARY | 2017-07-30 03:58 | XMS REPORT | Encounter Summary ---
Author Author [facility] Organization [facility] Address Unknown Phone Unavailable Care Team Providers Care Ton Container Filler Name Role Phone PCP Unavailable Reason for Referral * Radiology Services Status Reason Specialty Diagnoses / Referred By Referred To Procedures Contact Contact Closed Speech Pathology / Diagnoses Alpesh Moody Jamie, Radiology Acute myeloid MD MABLE Smith,CCC-VENTILATING EQUIPMENT INSTALLER leukemia in [address] remission ([facility] [place] [address]/O bone marrow [address] transplant ([facility] [place] [address] rocedures Phone: SWALLOW MOTION [phone] SERIES * Radiology Services Status Reason Specialty Diagnoses / Referred By Referred To Procedures Contact Contact Closed Speech Pathology / Diagnoses Alpesh Moody Jamie, Radiology Acute myeloid MD MABLE Smith,CCC-VENTILATING EQUIPMENT INSTALLER leukemia in [address] remission ([facility] [place] H/O bone marrow [address] transplant ([facility] [place] [address] rocedures Phone: SWALLOW MOTION [phone] SERIES Reason for Visit * Radiology Services Status Reason Specialty Diagnoses / Referred By Referred To Procedures Contact Contact Closed Speech Pathology / Diagnoses Alpesh Moody Jamie, Radiology Acute myeloid MD MABLE Smith,CCC-VENTILATING EQUIPMENT INSTALLER leukemia in [address] remission ([facility]) [place] H/O bone marrow [address] transplant ([facility] [place] [address] rocedures Phone: SWALLOW MOTION [phone] SERIES Encounter Details Date Type Department Care Team Description 06/17/2017 Hospital [facility] Luis Moody MD Encounter Hospital Radiology [address] [facility] [address] [place] [address] [place], [place] [id number] Social History Tobacco Use Types Packs/Day Years [...] hours as needed for Cough. Blood-Glucose Meter [facility] One Touch Verio meter 1 Each 0 [...] E 11.9 diabetes mellitus, E 11.9 Insulin Ola Use as needed for insulin 400 each [...] 3 201606/21/2017 10 mg tablet bedtime daily. bonpfyko-sjsdetqus-knkdwl Apply 1 cm to left eye as [...] Diseases as of this encounter Results * SWALLOW MOTION SERIES (06/17/2017 11:25 AM) [...] Austin Law M.D. on 06/17/2017 1:57 PM. 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) Bone marrow replaced by transplant in this encounter Administered Medications Medication Order MAR Action Action Date Dose Rate Site barium sulfate 40 % (VARIBAR HONEY) oral Given 06/17/2017 10 mL suspension 10 mL 11:20 CDT 10 mL, Oral, ONCE, 1 dose, Hilda 06/17/17 at 1130, GI Procedure Area Only barium sulfate 40 % (VARIBAR NECTAR) Given 06/17/2017 10 mL oral suspension 10 mL 11:20 CDT 10 mL, Oral, ONCE, 1 dose, Hilda 06/17/17 at 1130, GI Procedure Area Only barium sulfate 40 % (VARIBAR PUDDING) Given 06/17/2017 10 mL oral paste 10 mL 11:20 CDT 10 mL, Oral, ONCE, 1 dose, Hilda 06/17/17 at 1130, GI Procedure Area Only barium sulfate 40 % (VARIBAR THIN Given 06/17/2017 10 mL LIQUID) oral powder for suspension 10 mL 11:20 CDT 10 mL, Oral, ONCE, 1 dose, Hilda 06/17/17 at 1130, Mixing Instructions: 1. Gently shake the barium sulfate to loosen the powder. 2. Remove Cap. Add water to the 40% (w/v) line and replace the cap. 3. Invert bottle and tap with fingers to mix the powder into the water. 4. Shake vigorously for 30 seconds. Let stand for 5 minutes. 5. Suspension has hydrated and settled. Re-fill with water to the 40% line and replace cap. 6. Re-shake thoroughly. Product is now ready for use. in this encounter
--- OUTSIDE RECORDS SUMMARY | 2017-07-30 03:58 | XMS REPORT | Encounter Summary ---
Author Author [facility] Organization [facility] Address Unknown Phone Unavailable Care Team Providers Care Bobbin Fixer Name Role Phone PCP Unavailable Encounter Details Date Type Department Care Team Description 06/10/2017 Orders Only [facility] Lakshmi Guzman, Type 2 diabetes mellitus Cancer Center - BMT RN treated with insulin Treatment (HCC) (Primary Dx) [address] [facility] [address] [place] [address] Social History Tobacco Use Types Packs/Day Years [...] Visit Diagnoses Diagnosis Type 2 diabetes mellitus treated with insulin (HCC) - Primary Type II or unspecified type diabetes mellitus without mention of complication , not stated as uncontrolled in this encounter
--- OUTSIDE RECORDS SUMMARY | 2017-07-30 03:59 | XMS REPORT | Encounter Summary ---
Author Author [facility] Organization [facility] Address Unknown Phone Unavailable Care Team Providers Care Manufacturing Manager Name Role Phone PCP Unavailable Reason for Referral * Radiology Services Status Reason Specialty Diagnoses / Referred By Referred To Procedures Contact Contact No Auth Needed Radiology Diagnoses Annalee Virk MD Ww Mri Acute myeloid [address] having achieved [address] remission (HCC) [place] [address] Phone: rSmart MRI HEAD WO/W [phone] CONTRAST * Radiology Services Status Reason Specialty Diagnoses / Referred By Referred To Procedures Contact Contact No Auth Needed Radiology Diagnoses Annalee Virk MD Ww Mri Acute myeloid [address] having achieved [address] remission (HCC) [place] [address] Phone: rSmart MRI HEAD WO/W [phone] CONTRAST Reason for Visit * Radiology Services Status Reason Specialty Diagnoses / Referred By Referred To Procedures Contact Contact No Auth Needed Radiology Diagnoses Annalee Virk MD Ww Mri Acute myeloid [address] leukemia [address] having achieved [address] remission (HCC) [place] [address] Phone: rSmart MRI HEAD WO/W [phone] CONTRAST Encounter Details Date Type Department Care Team Description 05/26/2017 [facility] Annalee Virk MD Encounter [facility] [address] [place] [address] [place] [address] [phone] Social History Tobacco Use Types Packs/Day Years [...] daily. 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remission (HCC) Blood-Glucose Meter misc One Touch Verio meter 1 Each 0 10/20/2016 lancets (ACCU-CHEK To check blood sugars 100 Each 3 10/13/2016 FASTCLIX) MISC before meals and at bed time. albuterol (VENTOLIN HFA, Inhale 2 Puffs by mouth 3 Inhaler 3 201606/21/2017 PROAIR HFA, PROVENTIL into the lungs every 4 HFA) 90 mcg/actuation hours as needed for inhaler Wheezing or Shortness of Breath. Shake well before use. blood sugar diagnostic 1 Strip before meals and 100 Strip 6 201607/09/2017 (ONETOUCH VERIO) test at bedtime. strip brimonidine (ALPHAGAN P) Apply 1 Drop to left eye 5 mL 0 04/14/2017 06/02/2017 0.15 % ophthalmic as directed three times solution daily. carboxymethylcellulose Apply 1 Drop to both eyes 50 Each 4 02/24/2017 06/02/2017 (REFRESH PLUS) 0.5 % dpet four times daily. clonazePAM (KLONOPIN) 0.5 Take 0.5 Tabs by mouth at 60 Tab 5 201606/21/2017 mg tablet bedtime daily. cyclopentolate Apply 1 Drop to left eye 2 mL 0 05/06/2017 06/02/2017 (CYCLODRYL) 1 % as directed three times ophthalmic solution daily. dorzolamide-timolol(+) Apply 1 Drop to left eye 10 mL 0 04/14/2017 06/02/2017 (COSOPT) 2-0.5 % as directed three times ophthalmic solution daily. ergocalciferol (VITAMIN Take 1 Cap by mouth every 12 Cap 0 03/12/2017 06/02/2017 D-2) 50,000 unit 7 days. capsuleIndications: 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HCC) ferrous sulfate (FEOSOL, Take 1 Tab by mouth three 90 Tab 0 201605/27/2017 FEROSUL) 325 mg (65 mg times daily with meals iron) tablet for 30 days. Take on an empty stomach at least 1 hour before or 2 hours after food. HYDROcodone/acetaminophen Take 1-2 Tabs by mouth 60 Tab 0 05/10/2017 06/02/2017 (NORCO) 5/325 mg tablet every 6 hours as needed for Pain Max 4 tabs/day insulin aspart (NOVOLOG Inject 3 Units under the 3 Package 3 201606/09/2017 FLEXPEN) 100 unit/mL skin three times daily injection PEN with meals. insulin glargine (LANTUS Inject 10 Units under the 3 Package 3 201606/09/2017 SOLOSTAR) 100 unit/mL (3 skin at bedtime daily. mL) injection PEN Insulin [place] Use as needed for insulin 100 Each 6 02/24/2017 (Disposable) 31 gauge x administration 1/4" ndle leucovorin 25 mg tab Take 1 Tab by mouth 30 Tab 3 05/06/20172016 daily. levothyroxine (SYNTHROID) Take 1 Tab by mouth daily 90 Tab 3 201607/09/2017 50 mcg tablet 30 minutes before breakfast. magnesium oxide (MAG-OX) Take 1 Tab by mouth twice 180 Tab 3 201606/02/2017 400 mg tablet daily. mineral oil/white apply to hands and 09/18/2016 07/28/2017 petrolatum (ABSORBASE) affected areas as needed oint moxifloxacin (VIGAMOX) Apply 1 Drop to left eye 5 mL 0 05/13/2017 0.5 % ophthalmic solution as directed three times daily. for 1 week after surgery lnavgbhu-clzfcgxpc-vkqylt Apply 1 cm to left eye as 3.5 g 2 201607/07/2017 thasone (MAXITROL) 3.5 directed twice daily. mg/g-10,000 unit/g-0.1 % ophthalmic ointmentIndications: Panuveitis of left eye penicillin V potassium Take 3 tabs by mouth 180 Tab 3 04/05/2017 (VEETID) 250 mg tablet twice daily. polyethylene glycol 3350 Take 1 Packet by mouth 30 Packet 0 201605/27/2017 (MIRALAX) 17 g packet daily for 30 days. posaconazole EC (NOXAFIL) Take 4 Tabs by mouth 112 Tab 3 05/06/2017 07/09/2017 100 mg tablet daily with breakfast. prednisolone acetate 1 drop in left eye three 5 mL 1 05/13/2017 (PRED FORTE) 1 % times a day. ophthalmic suspension propranolol (INDERAL) 20 Take 1 Tab by mouth three 90 Tab 0 201605/27/2017 mg tablet times daily for 30 days. pyrimethamine (DARAPRIM) Take 2 Tabs by mouth 60 Tab 3 05/06/2017 25 mg tablet daily. senna/docusate Take 1 Tab by mouth twice 60 Tab 0 04/27/20172016 (SENOKOT-S) 8.6/50 mg daily for 30 days. tablet sulfADIAZINE 500 mg Take 2 Tabs by mouth four 240 Tab 3 05/06/2017 06/28/2017 tablet times daily. as of this encounter Plan of Treatment Date Type Specialty Care Team Description 06/28/2017 Procedure Pass Infectious Diseases as of this encounter Results * MRI HEAD WO/W CONTRAST (05/26/2017 10:44 AM) Specimen Performing Laboratory [facility] RAD RESULTS Impressions 1.Decrease in size and number of multiple cerebral and cerebellar enhancing lesions. Differential considerations include improvement in SUPERVISOR PIPELINE leukemia or SUPERVISOR PIPELINE infection. 2.Resolution of the left subdural hematoma [...] enhancing lesions. Differential considerations include improvement in SUPERVISOR PIPELINE leukemia or SUPERVISOR PIPELINE infection. 2. Resolution of the left subdural [...] Honorio Salas M.D. on 05/26/2017 11:26 AM. in this encounter Visit Diagnoses Diagnosis Acute myeloid leukemia not having achieved remission (HCC) in this encounter Administered Medications Medication Order MAR Action Action Date Dose Rate Site gadobenate dimeglumine (MULTIHANCE) Given 05/26/2017 5 mL injection 5 mL 10:23 CDT 5 mL, Intravenous, ONCE, 1 dose, Wed05/26/17 at 1045, Hand injected NOTE: This is a HIGH ALERT Medication. in this encounter
--- OUTSIDE RECORDS SUMMARY | 2017-07-30 03:59 | XMS REPORT | Encounter Summary ---
Author Author [facility] Organization [facility] Address Unknown Phone Unavailable Care Team Providers Care Pelts Skinner Name Role Phone PCP Unavailable Encounter Details Date Type Department Care Team Description 06/07/2017 Orders Only [facility] Dang Sweeney RN Acute myeloid leukemia Cancer Center - BMT Exam not having achieved [address] remission (HCC) [facility] [address] [place] [address] Social History Tobacco Use Types Packs/Day Years [...] this encounter Results * COMPREHENSIVE METABOLIC PANEL (06/04/2017) Component Value Ref Range Sodium 134 Potassium 4.3 Chloride 106 CO2 23 Blood Urea Nitrogen 17 Creatinine 1.17 Glucose 149 Calcium 10.6 Total Protein 6.0 Total Bilirubin 0.6 Albumin 3.6 Alk Phosphatase 233 AST (SGOT) 45 ALT (SGPT) 43 eGFR Non 47 eGFR Anion Gap 5 Specimen Performing Laboratory Blood OTHER OUTSIDE LAB in this encounter Visit Diagnoses Diagnosis Acute myeloid leukemia not having achieved remission (HCC) in this encounter
--- OUTSIDE RECORDS SUMMARY | 2017-07-30 03:59 | XMS REPORT | Encounter Summary ---
Author Author [facility] Organization [facility] Address Unknown Phone Unavailable Care Team Providers Care Time Study Technologist Name Role Phone PCP Unavailable Reason for Visit * Reason Comments Heme/Onc Care Encounter Details Date Type Department Care Team Description 06/02/2017 [facility] Annalee Virk MD Encounter Cancer Center - BMT [address] [facility] [address] [facility] [place] [address] [address] [place] [address] [phone] Social History Tobacco Use Types Packs/Day Years [...] as of this encounter Discharge Instructions * Patient Instructions - Radha Kessler RN - 06/02/2017 1:13 PM CDT Patient for calling after Hours BMT Weekday clinic hours are 7am-7pm; Weekend/Holiday hours 8am-2pm Telephone: [phone] During weekdays 8am - 430pm, you will talk to the triage nurse When calling after hours, ask perforator operator to be connected to the BMT Dr. APPLICATION DEFENSE MANAGER When to Call: 1) Temperature of 100.5F greater and/or Chills Do Not Take Tylenol or Advil unless OK'd by the Dr 2) Nausea/Vomiting cannot keep anti-nausea medication down 3) Watery diarrhea 4) New rash 5) New chest pain, neck pain What Other Information does the DrWallace physically impaired teacher need to know: 1) what type of transplant did you have? (Auto/own cells, allo/donor cells) 2) have you had a bone marrow transplant? 3) how many days out of transplant are you or what is your transplant date 4) what medications are you currently on? 5) when were you last seen and when are you scheduled to be seen again? 6) are you running a fever? developed a rash? Having diarrhea, nausea, vomiting ? in this encounter Medications at Time of [...] mouth 30 tablet 3 2016 tablet daily. Insulin [place] Use as needed for insulin 400 each [...] 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HCC) insulin aspart (NOVOLOG Inject 3 Units under [...] petrolatum (ABSORBASE) affected areas as needed oint vzdwytxs-pkpamrtlt-ylsshp Apply 1 cm to left eye as 3.5 g 2 201607/07/2017 thasone (MAXITROL) 3.5 directed twice daily. mg/g-10,000 unit/g-0.1 % ophthalmic ointmentIndications: Panuveitis of left eye penicillin V potassium Take 3 tabs by mouth 180 Tab 3 04/05/2017 (VEETID) 250 mg tablet twice daily. posaconazole EC (NOXAFIL) Take 4 Tabs by mouth 112 Tab 3 05/06/2017 07/09/2017 100 mg tablet daily with breakfast. pyrimethamine (DARAPRIM) Take 2 Tabs by mouth 60 Tab 3 05/06/2017 25 mg tablet daily. sulfADIAZINE 500 mg Take 2 Tabs by mouth four 240 Tab 3 05/06/2017 06/28/2017 tablet times daily. 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 S/p stem cell boost on 07/08/16. S/p fall at home with loss of consciousness resulting in subarachnoid bleed and left intraorbital bleed on 04/19/17. Left hip fx, s/p ORIF. 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 Labs drawn from left antecubital area without difficulty. Pt reports no appetite at all, not great swallowing at this time. States she is getting her pills down OK. Pt to room via wheelchair today, yelped a bit on getting up, MTA reports pt needed great assistance in getting out of chair to bed. Pt reports left leg/ hip pain 8/10 when walking. Pt able to walk in clinic with her walker and one person's assistance. Caregivers report pt has PT three times weekly. Dr. Virk to room for provider visit. Pt provided with BMT exam AVS (and med changes reviewed) by Nel Branham, RN, PTC. Pt discharged via wheelchair with her caregivers, rtc 06/09/17 for lab and provider visit. in this encounter Plan of Treatment Date Type Specialty Care Team Description 06/28/2017 Procedure Pass Infectious Diseases as of this encounter Results * CMV QUANT PCR-BLOOD (06/02/2017 12:36 PM) Component Value Ref Range IU/mL CMV [...] NOT DETECTED [IU]/mL Specimen Performing Laboratory Blood [facility] [address] [place] [address] * MAGNESIUM (06/02/2017 12:36 PM) Component Value Ref Range Magnesium 1.8 1.6 - 2.6 mg/dL Specimen Performing Laboratory Blood [facility] [address] [place] [address] * COMPREHENSIVE METABOLIC PANEL (06/02/2017 12:36 PM) Component Value Ref Range Sodium 133 (L) 137 - 147 MMOL/L Potassium 5.6 (H)Comment: NO VISIBLE HEMOLYSIS 3.5 - 5.1 MMOL/L Chloride 107 98 - 110 MMOL/L Glucose 132 (H) 70 - 100 MG/DL Blood Urea Nitrogen 16 7 - 25 MG/DL Creatinine 1.21 (H) 0.4 - 1.00 MG/DL Calcium 10.3 8.5 - 10.6 MG/DL Total Protein 5.7 (L) 6.0 - 8.0 G/DL Total Bilirubin 0.6 0.3 - 1.2 MG/DL Albumin 3.2 (L) 3.5 - 5.0 G/DL Alk Phosphatase 237 (H) 25 - 110 U/L AST (SGOT) 48 (H) 7 - 40 U/L CO2 22 21 - 30 MMOL/L ALT (SGPT) 42 7 - 56 U/L Anion Gap 4 [...] Pharmacist for questions. Specimen Performing Laboratory Blood [facility] [address] [place] [address] * CBC AND DIFF (06/02/2017 12:36 PM) Component Value Ref Range White Blood Cells 3.6 (L) 4.5 - 11.0 K/UL RBC 2.51 (L) 4.0 - 5.0 M/UL Hemoglobin 9.7 (L) 12.0 - 15.0 GM/DL Hematocrit 28.4 (L) 36 - 45 % MCV 113.0 (H) 80 - 100 FL MCH 38.6 (H) 26 - 34 PG MCHC 34.2 32.0 - 36.0 G/DL RDW 17.9 (H) 11 - 15 % Platelet Count 89 (L) 150 - 400 K/UL MPV 8.5 7 - 11 FL Neutrophils 42 41 - 77 % Lymphocytes 39 24 - 44 % Monocytes 16 (H) 4 - 12 % Eosinophils 2 0 - 5 % Basophils 1 0 - 2 % Absolute Neutrophil Count 1.50 (L) 1.8 - 7.0 K/UL Absolute Lymph Count 1.40 1.0 - 4.8 K/UL Absolute Monocyte Count 0.60 0 - 0.80 K/UL Absolute Eosinophil Count 0.10 0 - 0.45 K/UL Absolute Basophil Count 0.00 0 - 0.20 K/UL Specimen Performing Laboratory Blood [facility] [address] [place] [address] in this encounter Visit Diagnoses Diagnosis H/O bone marrow transplant (HCC) Bone marrow replaced by transplant 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HCC) Bone marrow replaced by transplant in this encounter
--- OUTSIDE RECORDS SUMMARY | 2017-07-30 03:59 | XMS REPORT | Encounter Summary ---
Author Author [facility] Organization [facility] Address Unknown Phone Unavailable Care Team Providers Care Sewer Pipe Press Operator Name Role Phone PCP Unavailable Reason for Visit * Reason Comments Depression Encounter Details Date Type Department Care Team Description 05/26/2017 Office Visit [facility] Berna Franks, Anxiety and depression Cancer Center - BMT Exam MD (Primary Dx);Acute [address] myeloid leukemia in [place] [address] remission (HCC);[place] [address] [place] [address] fatigue;Headache above [phone] the eye region Social History Tobacco Use Types Packs/Day Years [...] this encounter Instructions * Patient Instructions - Michell Abdul RN - 05/26/2017 2:45 PM CDT 1. She can take the klonopin at night to help sleep 2. Start the celexa 20 mg once a day This helps with depression in this encounter Progress Notes * Berna Franks MD - 05/26/2017 2:45 PM CDT Formatting of this note may be different from the original. PALLIATIVE CARE OUTPATIENT VISIT PC Outpatient Visit #: 2 Date of Service: 05/26/2017 Referring Clinician: marta Preferred Name: Donna PCP: Na No PCP PC Code: [id number] ASSESSMENT Donna Wilde is a 61 y.o. 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 Long hospital stay for fall/hip fracture and then findings of lesions on MRI which were cancer vs. Infectious. MRI yesterday improved. Pallaitive care following for symptoms and support as pt condition declares itself. Prognosis (Estimated): Based on current function, current medical issues, goals of care, and prognosis models, my estimated prognosis is unknown, depends on how TRIM SAWYER lesions evolve PLAN PAIN: Intensity: ; mild/moderate intermittent CURRENT REGIMEN: vicodin prn PLAN: continue, pain is better DYSPNEA: Intensity: ; none CURRENT REGIMEN: none PLAN: monitor FATIGUE/DECONDITIONING: Intensity: ;moderate CURRENT REGIMEN: exercises at home though does not have a lot of initiative to get up and go PLAN: tx depression as below. INSOMNIA: Intensity: ;mild, CURRENT REGIMEN: klonipin .25 q hs prn not always taking PLAN: continue NAUSEA/ANOREXIA: Intensity: , CURRENT REGIMEN: none PLAN: monitor BOWEL REGIMEN: Intensity: ;moving bowels CURRENT REGIMEN: miralax prn PLAN: continue DEPRESSION: Intensity: moderate per family, not interested in things and not motivated CURRENT REGIMEN: none PLAN: starting celexa 20 mg po q day today ANXIETY: Intensity: ;mild, CURRENT REGIMEN: klonipin q hs prn PLAN: continue PRACTICAL ISSUES: in hospital pt/family wanted to defer any ACP until such time as they have a good understanding of exact diagnosis of the TRIM SAWYER lesions. They have had worry from diagnosis [...] be important to plan to have a forklift wheel loader there to assure that all information is correctly translated and shared with pt/family. PLAN: SERIOUS ILLNESS CONVERSATIONS: (include dates; if left [...] none TPOPP: none Return to clinic:follow up 1 month to reassess sx and how the lesions are continuing to evolve SUBJECTIVE Reason for Visit: No chief complaint on file. Donna Wilde is a 61 y.o. female with Pertinent medical history includes AML transformed from CMML2 with t(7: 11) status post anesthesia transplant 1 year ago. Per chart review: Early April, the patient was initially transferred to [facility] for minutes at hospital following a traumatic fall. She sustained a fracture and was also found to have non-aneurysmal subarachnoid hemorrhage. Her hip fracture was stabilized with intramedullary nailing 04/19/2017. Subarachnoid hemorrhage resolved without incident. She was transferred to [facility] inpatient rehab 04/27/2017. In the course of [...] risks of brain biopsy outweigh the benefits. If the lumbar puncture demonstrates no evidence of infection, these lesions in the patient's brain most likely represent TRIM SAWYER spread of the patient's AML. Should the patient have TRIM SAWYER spread of her AML, treatment options would be very limited and poor. Had repeat MRI yesterday and the lesions are smaller. Palliative care seeing patient in follow up for sx mgmt and support. Pain in hip is improved. She is taking tylenol for headache pain. She has a h/o being on prozac but not at present. Her kids think she is depressed and she is not fighting that concept today. Nausea and constipation presently controlled. Sleep is okay. She is accompanied by her dtr on this visit, dtr and spouse not present. [place] Symptom Assessment Scale (ESAS-r-CS) Did not do today 05/26/2017 Symptom / Score 0=Best Possible 10=Worst Possible Comprehensive Pain Assessment Review of Systems Constitutional: Positive for fatigue. Eyes: Negative for pain, redness and visual disturbance. Respiratory: Negative. Cardiovascular: Negative. Gastrointestinal: Negative for nausea. Musculoskeletal: Positive for arthralgias. Skin: Negative. Neurological: Positive for headaches. Psychiatric/Behavioral: Positive for dysphoric mood. Negative for sleep disturbance. The patient is nervous/anxious. ONCOLOGY HISTORY No matching staging information [...] at ENDO/GI INTERTROCHANTERIC HIP FRACTURE SURGERY Left DC ESOPHAGOGASTRODUODENOSCOPY TRANSORAL DIAGNOSTIC N/A 09/09/2016 ESOPHAGOGASTRODUODENOSCOPY performed by Hermila Cornejo MD at ENDO/GI DC NASAL/SINUS ENDOSCOPY W/MAXILLARY ANTROSTOMY Left 05/03/2017 FUNCTIONAL ENDOSCOPY SINUS SURGERY WITH MAXILLARY ANTROSTOMY performed by Charlotte Montelongo MD at Main OR/Periop DC PROPH TX N/P/PLTWR W/WO METHYLMETHACRYLATE FEMUR Left 04/19/2017 INSERTION CEPHALOMEDULLARY NAIL FEMUR performed by Shane Sam MD at Main OR/ Periop DC SIGMOIDOSCOPY FLX DX W/COLLJ SPEC BR/WA IF PFRMD N/A 04/14/2016 SIGMOIDOSCOPY DIAGNOSTIC performed by Shane Lynn MD at ENDO/GI DC SIGMOIDOSCOPY FLX DX W/COLLJ SPEC BR/WA IF PFRMD N/A 07/29/2016 SIGMOIDOSCOPY DIAGNOSTIC performed by Niharika Lam MD at ENDO/GI DC SIGMOIDOSCOPY FLX DX W/COLLJ SPEC BR/WA IF PFRMD N/A 09/09/2016 SIGMOIDOSCOPY DIAGNOSTIC performed by Hermila Cornejo MD at ENDO/GI DC SIGMOIDOSCOPY FLX W/BIOPSY SINGLE/MULTIPLE 09/09/2016 SIGMOIDOSCOPY BIOPSY [...] BMI. EXAM General appearance: no acute distress, laying in bed in treatment, verbal, no grimace,thin Eyes: open, no discharge, no icterus Lungs: no secretions, no acc muscle use, no apnea, CTAB Heart: RRR + 2/6 murmur Abdomen: non distended, soft, nontender, minimal bowel sounds Extremities: moves all extremities, no edema Neurologic: no seizures, no myoclonus, no neuro deficits, oriented to time, person and place Psych: calm, flat affect, normal memory and judgement Skin: warm, [...] Shortness of Breath. Shake well before use. bacitracin 500 unit/g topical ointment Apply to left face laceration. benzonatate (TESSALON PERLES) 100 mg capsule Take 1 Cap by mouth three times daily as needed for Cough. blood sugar diagnostic (ONETOUCH VERIO) test strip 1 Strip before meals and at bedtime. Blood-Glucose Meter [facility] [place] Touch Verio meter brimonidine (ALPHAGAN P) 0.15 % ophthalmic solution Apply 1 Drop to left eye as directed three times daily. carboxymethylcellulose (REFRESH PLUS) 0.5 % dpet Apply 1 Drop to both eyes four times daily. clonazePAM (KLONOPIN) 0.5 mg tablet Take 0.5 Tabs by mouth at bedtime daily. cyclopentolate (CYCLODRYL) 1 % ophthalmic solution Apply 1 Drop to left eye as directed three times daily. dorzolamide-timolol(+) (COSOPT) 2-0.5 % ophthalmic solution Apply 1 Drop to left eye as directed three times daily. ergocalciferol (VITAMIN D-2) 50,000 unit capsule Take 1 Cap by mouth every 7 days. ferrous sulfate (FEOSOL, FEROSUL) 325 mg (65 mg iron) tablet Take 1 Tab by mouth three times daily with meals for 30 days. Take on an empty stomach at least 1 hour before or 2 hours after food. HYDROcodone/acetaminophen (NORCO) 5/325 mg tablet Take 1-2 Tabs by mouth every 6 hours as needed for Pain Max 4 tabs/day insulin aspart (NOVOLOG FLEXPEN) 100 unit/mL injection PEN Inject 3 Units under the skin three times daily with meals. insulin glargine (LANTUS SOLOSTAR) 100 unit/mL (3 mL) injection PEN Inject 10 Units under the skin at bedtime daily. Insulin [place] (Disposable) 31 gauge x 1/4" ndle Use as needed for insulin administration lancets (ACCU-CHEK FASTCLIX) [facility] To check blood sugars before meals and at bed time. leucovorin 25 mg tab Take 1 Tab by mouth daily. levothyroxine (SYNTHROID) 50 mcg tablet Take 1 Tab by mouth daily 30 minutes before breakfast. magnesium oxide (MAG-OX) 400 mg tablet Take 1 Tab by mouth twice daily. melatonin 3 mg tab Take 1 Tab by mouth at bedtime daily for 60 days. mineral oil/white petrolatum (ABSORBASE) oint apply to hands and affected areas as needed moxifloxacin (VIGAMOX) 0.5 % ophthalmic solution Apply 1 Drop to left eye as directed three times daily. for 1 week after surgery xypjxjmi-fcmnoguev-rpqbifwntlaxa (MAXITROL) 3.5 mg/g-10,000 unit/g-0.1 % ophthalmic ointment Apply 1 cm to left eye as directed twice daily. other medication Diphenhydramine 100mL (12.5mg/5mL solution) Dexamethasone 20mL (0.5mg/5mL solution) Nystatin 60mL (100,000units/mL suspension) Tetracycline 1500mg (standard powder) Sig: Swish and spit 5mL before and after each meal six times a day Qty: 420mL penicillin V potassium (VEETID) 250 mg tablet Take 3 tabs by mouth twice daily. pentamidine (NEBUPENT) 300 mg/6 mL nebulizer solution Inhale 6 mL by mouth into the lungs every 30 days. Last 03/05 polyethylene glycol 3350 (MIRALAX) 17 g packet Take 1 Packet by mouth daily for 30 days. posaconazole EC (NOXAFIL) 100 mg tablet Take 4 Tabs by mouth daily with breakfast. potassium chloride(+) (MICRO-K) 10 mEq capsule Take 4 capsules by mouth daily. Take 4 tablets with a meal and a full glass of water. prednisolone acetate (PRED FORTE) 1 % ophthalmic suspension 1 drop in left eye three times a day. prednisolone acetate (PRED FORTE) 1 % ophthalmic suspension Apply 1 Drop to left eye as directed four times daily. propranolol (INDERAL) 20 mg tablet Take 1 Tab by mouth three times daily for 30 days. pyrimethamine (DARAPRIM) 25 mg tablet Take 2 Tabs by mouth daily. senna/docusate (SENOKOT-S) 8.6/50 mg tablet Take 1 Tab by mouth twice daily for 30 days. sulfADIAZINE 500 mg tablet Take 2 Tabs by mouth four times daily. RESULTS REVIEW Imaging and labs reviewed CBC Lab Results Component Value Date/Time WBC 3.2 (L) 05/26/2017 01:35 PM HGB 9.3 (L) 05/26/2017 01:35 PM PLTCT 64 (L) 05/26/2017 01:35 PM Lab Results Component Value Date/Time NEUT 45 05/26/2017 01:35 PM ANC 1.50 (L) 05/26/2017 01:35 PM Comprehensive Metabolic Profile Lab Results Component Value Date/Time NA 138 05/26/2017 01:35 PM K 2.8 (L) 05/26/2017 01:35 PM BUN 23 05/26/2017 01:35 PM CR 1.16 (H) 05/26/2017 01:35 PM GLU 110 (H) 05/26/2017 01:35 PM Lab Results Component Value Date/Time CA 9.9 05/26/2017 01:35 PM PO4 3.9 05/04/2017 06:46 AM ALBUMIN 3.3 (L) 05/26/2017 01:35 PM TOTPROT 5.8 (L) 05/26/2017 01:35 PM ALKPHOS 226 (H) 05/26/2017 01:35 PM AST 67 (H) 05/26/2017 01:35 PM ALT 48 05/26/2017 01:35 PM TOTBILI 0.9 05/26/2017 01:35 PM GFR 48 (L) 05/26/2017 01:35 PM GFRAA 58 (L) 05/26/2017 01:35 PM ADMINISTRATIVE Berna Franks MD, [facility] Palliative Care Attending Pager [phone] Nights/Weekends - Page [phone] for Palliative Care On-Call NEW - OUTPT Time [id number] [phone] 20 50 95 [phone] 30 60 [phone] 45 75 [phone] 60 90 135 F/U - OUTPT Time [id number] [phone] 10 40 85 [phone] 15 45 90 [phone] 25 55 [phone] 40 70 115 in this encounter Plan of Treatment Date Type Specialty Care Team Description 06/28/2017 Procedure Pass Infectious Diseases as of this encounter Visit Diagnoses Diagnosis Anxiety and depression - Primary Dysthymic disorder 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 Other fatigue Headache above the eye region Headache in this encounter
--- OUTSIDE RECORDS SUMMARY | 2017-07-30 03:59 | XMS REPORT | Encounter Summary ---
Author Author [facility] Organization [facility] Address Unknown Phone Unavailable Care Team Providers Care Africana Studies Professor Name Role Phone PCP Unavailable Encounter Details Date Type Department Care Team Description 06/08/2017 Orders Only [facility] Luis Moody MD History of stem cell Cancer Center - BMT Exam [address] transplant (HCC) (Primary [address] [address] Dx) [address] [place] [address] [place] [address] [phone] Social History Tobacco Use Types Packs/Day Years [...] as of this encounter Visit Diagnoses Diagnosis History of stem cell transplant (HCC) - Primary Peripheral stem cells replaced by transplant in this encounter
--- OUTSIDE RECORDS SUMMARY | 2017-07-30 03:59 | XMS REPORT | Encounter Summary ---
Author Author [facility] Organization [facility] Address Unknown Phone Unavailable Care Team Providers Care Double Needle Operator Name Role Phone PCP Unavailable Reason for Visit * Reason Comments BMT Follow-up Encounter Details Date Type Department Care Team Description 06/03/2017 Telephone [facility] Juanita Ken RN BMT Follow-up Cancer Center - BMT Exam [address] [facility] [address] [place] [id number] Social History Tobacco Use Types Packs/Day Years [...] encounter Miscellaneous Notes * Telephone Encounter - Juanita Ken RN - 06/03/2017 12:14 PM CDT Called Jocelynn after Kendra spoke to Sejal who stated patient was not taking PenVK. Instructed Jocelynn to start this medication, new prescription sent to the [facility] in [place], [place]. She verbalized understanding. in this encounter Plan of Treatment Date Type Specialty Care Team Description 06/28/2017 Procedure Pass Infectious Diseases as of this encounter Visit Diagnoses Not on filein this encounter
--- OUTSIDE RECORDS SUMMARY | 2017-07-30 03:59 | XMS REPORT | Encounter Summary ---
Author Author [facility] Organization [facility] Address Unknown Phone Unavailable Care Team Providers Care Merchandising Director Name Role Phone PCP Unavailable Reason for Visit * Reason Comments Heme/Onc Care Encounter Details Date Type Department Care Team Description 06/02/2017 Office Visit [facility] Annalee Virk MD S/P allogeneic bone Cancer Center - BMT Exam [address] [facility] [address] marrow transplant (HCC) [address] [place] [id number] [place] [address] [phone] Social History Tobacco Use Types Packs/Day Years Used Date Never Smoker Smokeless Tobacco: Never Used Alcohol Use Drinks/Week oz/Week Comments No 0 Standard 0.0 drinks or equivalent Sex Assigned at Date Recorded Not on file as of this encounter Last Filed Vital Signs Vital Sign Reading Time Taken Blood Pressure 172/61 06/02/2017 12:43 PM CDT Pulse 56 06/02/2017 12:43 PM CDT Temperature 36.6 C (97.9 F) 06/02/2017 12:43 PM CDT Respiratory Rate 14 06/02/2017 12:43 PM CDT Oxygen Saturation 98% 06/02/2017 12:43 PM CDT Inhaled Oxygen - - Concentration Weight 55.4 kg (122 lb 3.2 oz) 06/02/2017 12:43 PM CDT Height 162.6 cm (5' 4.02") 06/02/2017 12:43 PM CDT Body Mass Index 20.97 06/02/2017 12:43 PM CDT in this encounter Functional Status [...] Progress Notes * Kandi Branham RN - 06/02/2017 1:30 PM CDT Date of Transplant: 03/02/16 CD34 Selected boost 07/08/2016 Preparative Regimen: Fludarabine/Melphalan Fully ablative/reduced intensity/NST: KAYLEE Disease: [facility] Disease status at transplant: 1st CR Cytogenetic/Fish AT DIAGNOSIS: HLA Match: 8:8 Donor & Cell source: matched sib (sister) [id number] PSC CMV: both POS ABO: both O POS Consents/Studies: 8322, blood, H&P, KAYLEE Flu/Hermila allo consent Coordinator: RUDDY MCKINNON RN CMV monitoring: Reactivation 10/27 - monitor Q2W until May per MD discretion 05/26 not detected, 06/02 in process EBV monitoring: N/A Chimerism results: 11/09/16 - 100% donor Transfusion parameters: Standard Electrolyte replacement goal: Standard GVHD location: Mouth Current GVHD treatment: Diphone rinse started 05/13/17 Tapers: (prednisone completed 11/16/16) PJP: Last prednisone Oct 2016, no PJP needed. Central line: none LTFU Orders placed for 03/02/2018. labs, BMBX 06/02: Med list reviewed by Pharmacy techician. Patient and caregiver unsure if she is taking PenVK and Posaconazole. Asked to check at home and call chief radiologic technologist after reaching home today. Denies nausea, vomiting or diarrhea. Patient asking for appetite stimulant, will start B&B. Stopping oral magnesium. Stopping Potassium oral for high K level today=5. Will recheck cmp on Wednesday at local lab. Outside cmp order given. PT for recent hip fracture three times a week. Will refer to ID DR. Milian for follow up visit. RTC 06/09 LabsMD (cbc,cmp,cmv,vre) 9/7: Video Swallow Study, Spriometry, Labs, , Palliative Care Physician 06/21 Ortho follow up 07/07: Eye 07/09 Dexa scan, Annalee Lara MD - 06/02/2017 1:30 PM CDT Formatting of this note may be different from the original. Date of Service: 06/02/2017 Subjective: S/p Flu/Hermila conditioning followed by MSD transplant, currently 15 months Recent prolonged admission after LOC and fall resulting in traumatic SAH and left hip fracture s/p ORIF of left intertrochanteric and trochanteric fractures She was in rehab but got readmitted for COMMERCIAL OCEAN CLAMMER lesions on MRI, extensive work only positive [...] Donor & Cell source: matched sib (sister) [id number] PSC CMV: both POS ABO: both O POS Consents/Studies: 8322, blood, H&P, KAYLEE Flu/Hermila allo consent Coordinator: RUDDY MCKINNON RN Donna Wilde is a 61 y.o. female with a PMH of DM, HTN and HLD who presented from [facility] ED with a leukocytosis concerning for Leukemia. Per her daughter, in early December 2014 she developed a chronic cough which was unremitting. She then presented to due to [facility] ED with complains of weakness, [...] and referred to Dr. Óscar Jones in [place], hydrea was DC due to thrombocytopenia. She [...] Pt is originally from [place] and is martiniquais speaking only. She has been living in [facility] for the past 15 [...] before meals and at bedtime. Blood-Glucose Meter [facility] One Touch Verio meter budesonide (ENTOCORT EC) [...] under the skin at bedtime daily. Insulin [place] (Disposable) 31 gauge x 1/4" ndle Use as needed for insulin administration before meals and at bedtime. lancets (ACCU-CHEK FASTCLIX) [facility] To check blood sugars before meals and at bed time. leucovorin 25 mg tab Take 1 Tab by mouth daily. levothyroxine (SYNTHROID) 50 mcg tablet Take 1 Tab by mouth daily 30 minutes before breakfast. mineral oil/white petrolatum (ABSORBASE) oint apply to hands and affected areas as needed futbjzhx-ubrpjrcrn-otxkhebxjyjzw (MAXITROL) 3.5 mg/g-10,000 unit/g-0.1 % ophthalmic ointment [...] Tabs by mouth four times daily. Vitals: 06/02/17 1243 BP: 172/61 Pulse: 56 Resp: 14 Temp: 36.6 C (97.9 F) TempSrc: Oral SpO2: 98% Weight: 55.4 kg (122 lb 3.2 oz) Height: 162.6 cm (64.02") Body mass index is 20.97 kg/(m^2). Vitals, BMI noted and reviewed Pain Score: Eight Pain Loc: Leg (Left) Pain Addressed: Current regimen working to control [...] Results Component Value Date/Time NA 133 (L) 06/02/2017 12:36 PM K 5.6 (H) 06/02/2017 12:36 PM CL 107 06/02/2017 12:36 PM CO2 22 06/02/2017 12:36 PM GAP 4 06/02/2017 12:36 PM BUN 16 06/02/2017 12:36 PM CR 1.21 (H) 06/02/2017 12:36 PM GLU 132 (H) 06/02/2017 12:36 PM Lab Results Component Value Date/Time CA 10.3 06/02/2017 12:36 PM PO4 3.9 05/04/2017 06:46 AM ALBUMIN 3.2 (L) 06/02/2017 12:36 PM TOTPROT 5.7 (L) 06/02/2017 12:36 PM ALKPHOS 237 (H) 06/02/2017 12:36 PM AST 48 (H) 06/02/2017 12:36 PM ALT 42 06/02/2017 12:36 PM TOTBILI 0.6 06/02/2017 12:36 PM GFR 45 (L) 06/02/2017 12:36 PM GFRAA 55 (L) 06/02/2017 12:36 PM CBC [...] - Chimerism 03/05/2017: is 100% donor donor COMMERCIAL OCEAN CLAMMER: -Brain lesion on MRI 04/29: concerning for infection or malignancy. "Enhancing nodular medial right cerebellar lesion and numerous additional smaller enhancing juxtacortical bilateral cerebral, basal nuclei, and brainstem lesions with mild associated multifocal vasogenic edema likely reflecting leukemia. Opportunistic intracranial infection could appear similar. -No prior history of COMMERCIAL OCEAN CLAMMER malignancy. LP 05/03/17 did not show evidence of leukemia. -CT Sinus05/01 with right maxillary mass, s/p: Bx, cultures and path negative -ID Dr. Milian following:Toxoplasma IgG positive, started on anti-toxo: sulfadiazine 1000mg PO four times daily, pyrimethamine, leucovorin 25mg MRI scan on 05/26/17 1. Decrease in size and number of multiple cerebral and cerebellar enhancing lesions. Differential considerations include improvement in COMMERCIAL OCEAN CLAMMER leukemia or COMMERCIAL OCEAN CLAMMER infection. 2. Resolution of the left subdural [...] home ID: Prophylasis: PenVK, Acyclovir Please see COMMERCIAL OCEAN CLAMMER section Last CD4 count above 300 in [...] NOT DETECTED [IU]/mL Specimen Performing Laboratory Blood [facility] [address] [place] [address] * COMPREHENSIVE METABOLIC PANEL (06/09/2017 1:24 PM) [...] Performing Laboratory Blood [facility] [address] [place] [address] * CBC AND DIFF (06/09/2017 1:24 PM) [...] Performing Laboratory Blood [facility] [address] [place] [address] * VRE SCREEN (06/09/2017 1:22 PM) Component Value Ref Range Battery Name VRE SCREEN Specimen Description PERIRECTAL SWAB Special Requests NONE Culture VRE ISOLATED Complete susceptibility testing is not performed on surveillance culture. Positive cultures indicate carrier status and do not by themselves indicate a need for treatment. Report Status FINAL 06/10/2017 Specimen Performing Laboratory Perirectal Swab [facility] [address] [place] [address] in this encounter Visit Diagnoses Diagnosis 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HCC) Bone marrow replaced by transplant in this encounter
--- OUTSIDE RECORDS SUMMARY | 2017-07-30 04:00 | XMS REPORT | Encounter Summary ---
Author Author [facility] Address Unknown Phone Unavailable Care Team Providers Care Custodial Laborer Name Role Phone PCP Unavailable Encounter Details Date Type Department Care Team Description 05/13/2017 Procedure Pass [facility] Radiology [address] [place], [place] [id number] Social History Tobacco Use Types Packs/Day Years [...]
--- OUTSIDE RECORDS SUMMARY | 2017-07-30 04:00 | XMS REPORT | Encounter Summary ---
Author Author [facility] Organization [facility] Address Unknown Phone Unavailable Care Team Providers Care Office Analyst Name Role Phone PCP Unavailable Encounter Details Date Type Department Care Team Description 05/19/2017 Orders Only [facility] Kandi Branham RN H/ O stem cell transplant Cancer [facility] - BMT Exam (HCC) (Primary Dx) [address] [facility] [address] [place] [id number] Social History Tobacco Use Types Packs/Day Years [...] this encounter Results * CMV QUANT PCR-BLOOD (05/26/2017 1:35 PM) Component Value Ref Range IU/mL CMV [...] NOT DETECTED [IU]/mL Specimen Performing Laboratory Blood [facility] [address] [place] [address] * MAGNESIUM (05/26/2017 1:35 PM) Component Value Ref Range Magnesium 1.7 1.6 - 2.6 mg/dL Specimen Performing Laboratory Blood [facility] [address] [place] [address] * COMPREHENSIVE METABOLIC PANEL (05/26/2017 1:35 PM) Component Value Ref Range Sodium 138 137 - 147 MMOL/L Potassium 2.8 (L) 3.5 - 5.1 MMOL/L Chloride 103 98 - 110 MMOL/L Glucose 110 (H) 70 - 100 MG/DL Blood Urea Nitrogen 23 7 - 25 MG/DL Creatinine 1.16 (H) 0.4 - 1.00 MG/DL Calcium 9.9 8.5 - 10.6 MG/DL Total Protein 5.8 (L) 6.0 - 8.0 G/DL Total Bilirubin 0.9 0.3 - 1.2 MG/DL Albumin 3.3 (L) 3.5 - 5.0 G/DL Alk Phosphatase 226 (H) 25 - 110 U/L AST (SGOT) 67 (H) 7 - 40 U/L CO2 29 21 - 30 MMOL/L ALT (SGPT) 48 7 - 56 U/L Anion Gap 6 3 - 12 eGFR Non 48 (L) >60 mL/min Comment: The eGFR is not validated for use in drug dosing adjustments. Continue to use estimated creatinine clearance per dosing reference text. Please contact the Clinical Pharmacist for questions. eGFR 58 (L) >60 mL/min Comment: The eGFR is not validated for use in drug dosing adjustments. Continue to use estimated creatinine clearance per dosing reference text. Please contact the Clinical Pharmacist for questions. Specimen Performing Laboratory Blood [facility] [address] [place] [id number] * CBC AND DIFF (05/26/2017 1:35 PM) Component Value Ref Range White Blood Cells 3.2 (L) 4.5 - 11.0 K/UL RBC 2.45 (L) 4.0 - 5.0 M/UL Hemoglobin 9.3 (L) 12.0 - 15.0 GM/DL Hematocrit 26.4 (L) 36 - 45 % MCV 107.9 (H) 80 - 100 FL MCH 38.1 (H) 26 - 34 PG MCHC 35.3 32.0 - 36.0 G/DL RDW 17.2 (H) 11 - 15 % Platelet Count 64 (L) 150 - 400 K/UL MPV 7.5 7 - 11 FL Neutrophils 45 41 - 77 % Lymphocytes 38 24 - 44 % Monocytes 13 (H) 4 - 12 % Eosinophils 3 0 - 5 % Basophils 1 0 - 2 % Absolute Neutrophil Count 1.50 (L) 1.8 - 7.0 K/UL Absolute Lymph Count 1.20 1.0 - 4.8 K/UL Absolute Monocyte Count 0.40 0 - 0.80 K/UL Absolute Eosinophil Count 0.10 0 - 0.45 K/UL Absolute Basophil Count 0.00 0 - 0.20 K/UL Specimen Performing Laboratory Blood [facility] [address] [place] [address] in this encounter Visit Diagnoses Diagnosis H/O stem cell transplant (HCC) - Primary Peripheral stem cells replaced by transplant in this encounter
--- OUTSIDE RECORDS SUMMARY | 2017-07-30 04:00 | XMS REPORT | Encounter Summary ---
Author Author [facility] Organization [facility] Address Unknown Phone Unavailable Care Team Providers Care Research Programmer Name Role Phone PCP Unavailable Reason for Visit * Reason Comments Heme/Onc Care Encounter Details Date Type Department Care Team Description 05/19/2017 [facility] Luis Moody MD Encounter Cancer Center - BMT [address] [place] [address] [address] [place] [address] [phone] Social History Tobacco Use Types Packs/Day Years Used Date Never Smoker Smokeless Tobacco: Never Used Alcohol Use Drinks/Week oz/Week Comments No 0 Standard 0.0 drinks or equivalent Sex Assigned at Date Recorded Not on file as of this encounter Last Filed Vital Signs Vital Sign Reading Time Taken Blood Pressure 158/68 05/19/2017 4:14 PM CDT Pulse 56 05/19/2017 4:14 PM CDT Temperature 36.3 C (97.3 F) 05/19/2017 4:14 PM CDT Respiratory Rate 16 05/19/2017 4:14 PM CDT Oxygen Saturation 100% 05/19/2017 4:14 PM CDT Inhaled Oxygen - - Concentration Weight 55.6 kg (122 lb 9.6 oz) 05/19/2017 4:14 PM CDT Height 162.6 cm (5' 4.02") 05/19/2017 4:14 PM CDT Body Mass Index 21.03 05/19/2017 4:14 PM CDT in this encounter Functional Status [...] encounter Discharge Instructions * Patient Instructions - Skylar Mccoy RN - 05/19/2017 4:49 PM CDT PATIENT FORM FOR CALLING AFTER HOURS BMT HOURS ARE 7a-7p M-F, 8a-2p on Weekends/holidays TELEPHONE # [phone] During weekday hours, you will talk with the triage nurse. WHEN THE WORKERS' COMPENSATION MEDIATOR ANSWERS, ASK TO BE CONNECTED TO THE BMT DOCTOR COAT FINISHER. WHEN TO CALL? 1. TEMPERATURE OF 100.5 OR GREATER. CHILLS? DO NOT TAKE TYLENOL OR ADVIL UNLESS OKD BY THE DOCTOR 2. NAUSEA/VOMITING CANNOT KEEP ANTI-NAUSEA MEDICATION DOWN. 3. WATERY DIARRHEA. 4. NEW RASH. 5. NEW CHEST PAIN, NECK PAIN. 6. SEVERE BLEEDING THAT CONTINUES AFTER 15 MINUTES OF DIRECT PRESSURE. WHAT OTHER INFORMATION DOES THE DOCTOR COAT FINISHER WANT? ? What type of transplant did you have? Eg. Auto-own cells, allo-donor cells. ? Have you had a bone marrow transplant? ? How many days out of transplant you are or your transplant date ? What meds you are currently on any recent med changes ? When you were last seen and when you are scheduled to be seen again. ? Running a fever, developed a rash, have diarrhea, nausea, vomiting. in this encounter Medications at Time of [...] Shake well before use. bacitracin 500 unit/g Apply to left face 14 g 0 04/27/20172016 topical ointment laceration. benzonatate (TESSALON Take 1 Cap by mouth three 20 Cap 0 02/24/2017 05/26/2017 PERLES) 100 mg capsule times daily as needed for Cough. blood sugar diagnostic 1 Strip before meals [...] at bedtime daily. mL) injection PEN Insulin [place] Use as needed for insulin 100 Each 6 02/24/2017 (Disposable) 31 gauge x administration /" ndle leucovorin 25 mg tab Take 1 Tab by mouth 30 Tab 3 05/06/20172016 daily. levothyroxine (SYNTHROID) Take 1 Tab by mouth daily 90 Tab 3 201607/09/2017 50 mcg tablet 30 minutes before breakfast. magnesium oxide (MAG-OX) Take 1 Tab by mouth twice 180 Tab 3 201606/02/2017 400 mg tablet daily. melatonin 3 mg tab Take 1 Tab by mouth at 60 Tab 0 04/27/20172016 bedtime daily for 60 days. mineral oil/white apply to hands and 09/18/2016 07/28/2017 petrolatum (ABSORBASE) affected areas as needed oint moxifloxacin (VIGAMOX) Apply 1 Drop to left eye 5 mL 0 05/13/2017 0.5 % ophthalmic solution as directed three times daily. for 1 week after surgery gfkvpgnl-qhfsbfqes-josxye Apply 1 cm to left eye as 3.5 g 2 201607/07/2017 thasone (MAXITROL) 3.5 directed twice daily. mg/g-10,000 unit/g-0.1 % ophthalmic ointmentIndications: Panuveitis of left eye other medication Diphenhydramine 100mL 420 mL 3 05/13/20172016 (12.5mg/5mL solution)Dexamethasone 20mL (0.5mg/5mL solution)Nystatin 60mL (100,000units/mL suspension)Tetracycline 1500mg (standard powder)Sig: Swish and spit 5mL before and after each meal six times a dayQty: 420mL penicillin V potassium Take 3 tabs by mouth 180 Tab 3 04/05/2017 (VEETID) 250 mg tablet twice daily. pentamidine (NEBUPENT) Inhale 6 mL by mouth into 03/24/2017 05/26/2017 300 mg/6 mL nebulizer the lungs every 30 days. solution Last 03/05 polyethylene glycol 3350 Take 1 Packet by mouth 30 Packet 0 201605/27/2017 (MIRALAX) 17 g packet daily for 30 days. posaconazole EC (NOXAFIL) Take 4 Tabs by mouth 112 Tab 3 05/06/2017 07/09/2017 100 mg tablet daily with breakfast. prednisolone acetate 1 drop in left eye three 5 mL 1 05/13/2017 (PRED FORTE) 1 % times a day. ophthalmic suspension prednisolone acetate Apply 1 Drop to left eye 5 mL 0 05/06/2017 (PRED FORTE) 1 % as directed four times ophthalmic suspension daily. propranolol (INDERAL) 20 Take 1 Tab by [...] as of this encounter Progress Notes * Skylar Mccoy RN - 05/19/2017 4:43 PM CDT Donna Wilde 61 y.o. female 05/19/2017 Transplant: 03/02/2016 Notes - Pt to clinic via wheelchair with family. Labs obtained peripherally from right AC. Potassium=3.4, 40meq PO Potassium ordered per standard electrolyte protocol. Pt tolerated replacement well. RN reviewed AVS with pt and pt verbalized understanding. Pt stated no further questions or concerns and left clinic in wheelchair with caregiver. Fatigue Scale:0 Pain Scale: 0 Skylar Mccoy RN 05/19/2017 in this encounter Plan of Treatment Date Type Specialty Care Team Description 06/28/2017 Procedure Pass Infectious Diseases as of this encounter Results * CMV QUANT PCR-BLOOD (05/19/2017 4:13 PM) Component Value Ref Range IU/mL CMV [...] NOT DETECTED [IU]/mL Specimen Performing Laboratory Blood [facility] [address] [place] [address] * MAGNESIUM (05/19/2017 4:13 PM) Component Value Ref Range Magnesium 1.7 1.6 - 2.6 mg/dL Specimen Performing Laboratory Blood [facility] [address] [place] [address] * CBC AND DIFF (05/19/2017 4:13 PM) Component Value Ref Range White Blood Cells 3.7 (L) 4.5 - 11.0 K/UL RBC 2.61 (L) 4.0 - 5.0 M/UL Hemoglobin 9.7 (L) 12.0 - 15.0 GM/DL Hematocrit 28.5 (L) 36 - 45 % MCV 109.4 (H) 80 - 100 FL MCH 37.3 (H) 26 - 34 PG MCHC 34.1 32.0 - 36.0 G/DL RDW 17.8 (H) 11 - 15 % Platelet Count 64 (L) 150 - 400 K/UL MPV 8.6 7 - 11 FL Neutrophils 39 (L) 41 - 77 % Lymphocytes 40 24 - 44 % Monocytes 19 (H) 4 - 12 % Eosinophils 2 0 - 5 % Basophils 0 0 - 2 % Absolute Neutrophil Count 1.40 (L) 1.8 - 7.0 K/UL Absolute Lymph Count 1.50 1.0 - 4.8 K/UL Absolute Monocyte Count 0.70 0 - 0.80 K/UL Absolute Eosinophil Count 0.10 0 - 0.45 K/UL Absolute Basophil Count 0.00 0 - 0.20 K/UL Specimen Performing Laboratory Blood [facility] [address] [place] [address] * COMPREHENSIVE METABOLIC PANEL (05/19/2017 4:13 PM) Component Value Ref Range Sodium 136 (L) 137 - 147 MMOL/L Potassium 3.4 (L) 3.5 - 5.1 MMOL/L Chloride 104 98 - 110 MMOL/L Glucose 138 (H) 70 - 100 MG/DL Blood Urea Nitrogen 20 7 - 25 MG/DL Creatinine 1.23 (H) 0.4 - 1.00 MG/DL Calcium 9.9 8.5 - 10.6 MG/DL Total Protein 5.7 (L) 6.0 - 8.0 G/DL Total Bilirubin 0.7 0.3 - 1.2 MG/DL Albumin 3.2 (L) 3.5 - 5.0 G/DL Alk Phosphatase 234 (H) 25 - 110 U/L AST (SGOT) 55 (H) 7 - 40 U/L CO2 27 21 - 30 MMOL/L ALT (SGPT) 40 7 - 56 U/L Anion Gap 5 3 - 12 eGFR Non 45 (L) [...] [facility] [address] [place] [address] in this encounter Visit Diagnoses Diagnosis Acute myeloid leukemia not having achieved remission (HCC) in this encounter Administered Medications Medication Order MAR Action Action Date Dose Rate Site potassium chloride SR (K-DUR) tablet 40 Given 05/19/2017 40 mEq mEq 16:48 CDT 40 mEq, Oral, ONCE, 1 dose, Wed05/19/17 at 1645, DO NOT BREAK TABLET OR GRIND GRANULES in this encounter
--- OUTSIDE RECORDS SUMMARY | 2017-07-30 04:00 | XMS REPORT | Encounter Summary ---
Author Author [facility] Organization [facility] Address Unknown Phone Unavailable Care Team Providers Care Transition Rn Name Role Phone PCP Unavailable Encounter Details Date Type Department Care Team Description 05/26/2017 [facility] Luis Moody MD Encounter Cancer Center - BMT [address] [place] [address] [address] [place] [address] [phone] Social History Tobacco Use Types Packs/Day Years Used Date Never Smoker Smokeless Tobacco: Never Used Alcohol Use Drinks/Week oz/Week Comments No 0 Standard 0.0 drinks or equivalent Sex Assigned at Date Recorded Not on file as of this encounter Last Filed Vital Signs Vital Sign Reading Time Taken Blood Pressure 176/69 05/26/2017 2:09 PM CDT Pulse 59 05/26/2017 2:09 PM CDT Temperature - - Respiratory Rate - - Oxygen Saturation - - Inhaled Oxygen - - Concentration Weight - - Height - - Body Mass Index - - in this encounter Functional Status Functional Status [...] Touch Verio meter 1 Each 0 10/20/2016 citalopram (CELEXA) 20 mg Take 1 tablet by mouth 30 tablet 3 2016 tablet daily. lancets (ACCU-CHEK To check blood sugars 100 [...] at bedtime daily. mL) injection PEN Insulin [place] Use as needed for insulin 100 Each [...] times daily. for 1 week after surgery heotiqnp-urroruudi-qosqfh Apply 1 cm to left eye as [...] tablet daily with breakfast. potassium chloride(+) Take 4 capsules by mouth 160 capsule 3 201606/02/2017 (MICRO-K) 10 mEq capsule daily. Take 4 tablets with a meal and a full glass of water. prednisolone acetate 1 drop in left eye [...] as of this encounter Progress Notes * Jason Mcclelland RN - 05/26/2017 3:34 PM CDT Date of Transplant: 03/02/16 CD34 Selected boost 07/08/2016 Preparative Regimen: Fludarabine/Melphalan Fully ablative/reduced intensity/NST: KAYLEE Disease: AML (from [facility]) Disease status at transplant: 1st CR Cytogenetic/Fish AT DIAGNOSIS: HLA Match: 8:8 Donor & Cell source: matched sib (sister) [id number] PSC CMV: both POS ABO: both O POS Consents/Studies: 8322, blood, H&P, KAYLEE Flu/Hermila allo consent Coordinator: RUDDY MCKINNON RN Pt here for lab, provider visit, and possible replacements. Lab drawn per protocol from pt left AC IV which was previously started in MRI. K is 2.8, per Dr. Moody pt to increase PO K to 40mEq daily. Pt bp elevated to 176/69, per Dr. Moody no intervention needed at this time since pt on propanolol. PIV d/c 'd with no problem. Pt to be scheduled for swallow study. She ambulated from clinic with caregiver. in this encounter Plan of Treatment Date [...] DETECTED [IU]/mL Specimen Performing Laboratory Blood [facility] [address] [place] [address] * MAGNESIUM (05/26/2017 1:35 PM) Component Value Ref Range Magnesium 1.7 1.6 - 2.6 mg/dL Specimen Performing Laboratory Blood [facility] [address] [place] [address] * COMPREHENSIVE METABOLIC PANEL (05/26/2017 1:35 PM) [...] for questions. Specimen Performing Laboratory Blood [facility] [address] [place] [address] * CBC AND DIFF (05/26/2017 1:35 PM) [...] 0.20 K/UL Specimen Performing Laboratory Blood [facility] [address] [place] [address] in this encounter Visit Diagnoses Diagnosis H/O stem cell transplant (HCC) Peripheral stem cells replaced by transplant in this encounter
--- OUTSIDE RECORDS SUMMARY | 2017-07-30 04:00 | XMS REPORT | Encounter Summary ---
Author Author [facility] Organization [facility] Address Unknown Phone Unavailable Care Team Providers Care Pan Pusher Name Role Phone PCP Unavailable Reason for Referral * Radiology Services Status Reason Specialty Diagnoses / Referred By Referred To Procedures Contact Contact Closed Speech Pathology / Diagnoses Alpesh Moody Jamie, Radiology Acute myeloid MD MABLE Smith,CCC-DONOR RELATIONS ASSOCIATE leukemia in [address] remission (HCC) [place] H/O bone marrow [address] transplant (HCC) [place] [address] rocedures Phone: SWALLOW MOTION [phone] SERIES Reason for Visit * Reason Comments Heme/Onc Care Encounter Details Date Type Department Care Team Description 05/26/2017 Office Visit [facility] Luis Moody MD 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 [address] [facility] remission (HCC) (Primary [address] Dx);Blindness of left eye [address] [place] [address] [place] [address] contralateral eye;H/O [phone] bone marrow transplant (HCC);Lesion of cerebellum;Pancytopenia due to chemotherapy (HCC);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HCC);Steroid myopathy;Thrombocytopenia (HCC) Social History Tobacco Use Types Packs/Day Years Used Date Never Smoker Smokeless Tobacco: Never Used Alcohol Use Drinks/Week oz/Week Comments No 0 Standard 0.0 drinks or equivalent Sex Assigned at Date Recorded Not on file as of this encounter Last Filed Vital Signs Vital Sign Reading Time Taken Blood Pressure 165/106 05/26/2017 1:31 PM CDT Pulse 60 05/26/2017 1:31 PM CDT Temperature 36.5 C (97.7 F) 05/26/2017 1:31 PM CDT Respiratory Rate 16 05/26/2017 1:31 PM CDT Oxygen Saturation 100% 05/26/2017 1:31 PM CDT Inhaled Oxygen - - Concentration Weight 57.2 kg (126 lb) 05/26/2017 1:31 PM CDT Height 162.6 cm (5' 4.02") 05/26/2017 1:31 PM CDT Body Mass Index 21.62 05/26/2017 1:31 PM CDT in this encounter Functional Status [...] Progress Notes * Kandi Branham RN - 05/26/2017 2:10 PM CDT Date of Transplant: 03/02/16 CD34 Selected boost 07/08/2016 Preparative Regimen: Fludarabine/Melphalan Fully ablative/reduced intensity/NST: KAYLEE Disease: AML (from [facility]) Disease status at transplant: 1st CR Cytogenetic/Fish AT DIAGNOSIS: HLA Match: 8:8 Donor & Cell source: matched sib (sister) [id number] PSC CMV: both POS ABO: both O POS Consents/Studies: 8322, blood, H&P, KAYLEE Flu/Hermila allo consent Coordinator: RUDDY MCKINNON RN CMV monitoring: Reactivation 10/27 - monitor Q2W until May per MD discretion 05/19 negative. 05/26 pending EBV monitoring: N/A Chimerism results: 11/09/16 - 100% donor Transfusion parameters: Standard Electrolyte replacement goal: Standard GVHD location: Mouth Current GVHD treatment: Diphone rinse started 05/13/17 Tapers: (prednisone completed 11/16/16) PJP: Pentam last given 04/05/17 Central line: none LTFU Orders placed for 03/02/2018. labs, BMBX 05/26 MRI of head this morning was done to reevaluate brain lesion after recent hospitalization. Patient reporting trouble swallowing, will do video swallow study. Patient's potassium low, will start 40 meq KCL daily. Will continue antibiotics until next Wednesday, Dr. Llanos may be able to see patient at BMT clinic. RTC 06/02 LabsMD 06/09 Labs, 06/17: Video Swallow Study, Spriometry, LabsMD 06/21 Ortho follow up 07/07: [facility] 07/09 Dexa scan, Luis French MD - 05/26/2017 2:10 PM CDT Formatting of this note may be different from the original. Date of Service: 05/26/2017 Subjective: S/p Flu/Hermila conditioning followed by MSD transplant, currently 1 year 3 months Recent prolonged admission after LOC and fall resulting in traumatic SAH and left hip fracture s/p ORIF of left intertrochanteric and trochanteric fractures She was in rehab but got readmitted for POSITION CLASSIFIER lesions on MRI, extensive work only positive for IgG toxo, patient currently on empiric therapy. Vigamox stopped. MRI done today Follow-up with orthopedic surgery, x-rays showed adequate healing. Patient also underwent left vitreal biopsy with ophthalmology, all negative for cancer or infection. Planning a repeat MRI week of 05/25 Dr. Llanos from [facility]-Done today Feeling well, reports burning sensation in her mouth when she eats. Weightbearing and ambulatory on the left hip History of Present Illness Patient with myelodysplastic/myeloproliferative neoplasm, morphologically favoring CMML-2, s/p 4 cycles of dacogen, progressed to AML, CR 1 after 7+3 and HIDAC x 1 Date of Transplant: 03/02/16 Preparative Regimen: Fludarabine/Melphalan Fully ablative/reduced intensity/NST: KAYLEE Disease: AML (from [facility]) Disease status at transplant: 1st CR Cytogenetic/Fish AT DIAGNOSIS: t(7:11) HLA Match: 8:8 Donor & Cell source: matched sib (sister) [id number] PSC CMV: both POS ABO: both O POS Consents/Studies: 8322, blood, H&P, KAYLEE Flu/Hermila allo consent Coordinator: ROSARIO AG is a 61 y.o. female with a PMH of DM, HTN and HLD who presented from [facility] ED with a leukocytosis concerning for Leukemia. Per her daughter, in early December 2014 she developed a chronic cough which was unremitting. She then presented to due to [facility] ED with complains of weakness, fatigue and [...] and referred to Dr. Óscar Jones in [place], hydrea was DC due to thrombocytopenia. She [...] also with multiple CMV reactivation now resolved Prolonged hospitalization after loss of consciousness and a fall, please see above Review of Systems Constitutional: Positive for fatigue. Negative for fever and unexpected weight change. HENT: Positive for trouble swallowing. Negative for congestion. Eyes: Positive for visual disturbance (Cannot see from left eye). Respiratory: Negative for cough and shortness of breath. Cardiovascular: Negative for leg swelling. Gastrointestinal: Negative for diarrhea and nausea. Endocrine: Negative for cold intolerance. Genitourinary: Negative for dysuria and hematuria. Musculoskeletal: Positive for arthralgias. Right hip fracture Skin: Positive for pallor. Negative for rash. Allergic/Immunologic: Positive for immunocompromised state. Neurological: Positive for weakness. Hematological: Bruises/bleeds easily. Psychiatric/Behavioral: Positive for decreased concentration. The patient is nervous/anxious. Constitutional: Fatigue, thin build HENT: Burning sensation when she eats Eyes: Status post left vitreal biopsy, left eye blind CVS: No chest pain, edema, or palpitations Respiratory: No shortness of breath, wheezing, cough, hemoptysis, or chest tightness Abdomen: No abdominal pain, distension, blood in stool, hematemesis, nausea, vomiting, diarrhea, constipation, or rectal pain : No dysuria, flank pain, frequency, hematuria, [...] Social HX: . Pt is originally from [place] and is mauritanian speaking only. She has been living in [facility] for the past 15 years however she [...] before meals and at bedtime. Blood-Glucose Meter [facility] One Touch Verio meter brimonidine (ALPHAGAN P) [...] under the skin at bedtime daily. Insulin [place] (Disposable) 31 gauge x 1/4" ndle Use as needed for insulin administration lancets (ACCU-CHEK FASTCLIX) [facility] To check blood sugars before meals and [...] times daily. for 1 week after surgery myfxdchi-ogataijmf-metpkwhdlkhlt (MAXITROL) 3.5 mg/g-10,000 unit/g-0.1 % ophthalmic ointment [...] 4 Tabs by mouth daily with breakfast. prednisolone acetate (PRED FORTE) 1 % ophthalmic [...] Tabs by mouth four times daily. Vitals: 05/26/17 1331 BP: (!) 165/106 Pulse: 60 Resp: 16 Temp: 36.5 C (97.7 F) TempSrc: Oral SpO2: 100% Weight: 57.2 kg (126 lb) Height: 162.6 cm (64.02") Body mass index is 21.62 kg/(m^2). Vitals, BMI noted and reviewed Pain [...] Results Component Value Date/Time NA 136 (L) 05/19/2017 04:13 PM K 3.4 (L) 05/19/2017 04:13 PM CL 104 05/19/2017 04:13 PM CO2 27 05/19/2017 04:13 PM GAP 5 05/19/2017 04:13 PM BUN 20 05/19/2017 04:13 PM CR 1.23 (H) 05/19/2017 04:13 PM GLU 138 (H) 05/19/2017 04:13 PM Lab Results Component Value Date/Time CA 9.9 05/19/2017 04:13 PM PO4 3.9 05/04/2017 06:46 AM ALBUMIN 3.2 (L) 05/19/2017 04:13 PM TOTPROT 5.7 (L) 05/19/2017 04:13 PM ALKPHOS 234 (H) 05/19/2017 04:13 PM AST 55 (H) 05/19/2017 04:13 PM ALT 40 05/19/2017 04:13 PM TOTBILI 0.7 05/19/2017 04:13 PM GFR 45 (L) 05/19/2017 04:13 PM GFRAA 54 (L) 05/19/2017 04:13 PM CBC w/Diff Lab Results Component Value Date/Time WBC 3.7 (L) 05/19/2017 04:13 PM RBC 2.61 (L) 05/19/2017 04:13 PM HGB 9.7 (L) 05/19/2017 04:13 PM HCT 28.5 (L) 05/19/2017 04:13 PM MCV 109.4 (H) 05/19/2017 04:13 PM MCH 37.3 (H) 05/19/2017 04:13 PM MCHC 34.1 05/19/2017 04:13 PM RDW 17.8 (H) 05/19/2017 04:13 PM PLTCT 64 (L) 05/19/2017 04:13 PM MPV 8.6 05/19/2017 04:13 PM Lab Results Component Value Date/Time NEUT 39 (L) 05/19/2017 04:13 PM ANC 1.40 (L) 05/19/2017 04:13 PM LYMA 40 05/19/2017 04:13 PM ALC 1.50 05/19/2017 04:13 PM BRCUE 19 (H) 05/19/2017 04:13 PM AMC 0.70 05/19/2017 04:13 PM EOSA 2 05/19/2017 04:13 PM AEC 0.10 05/19/2017 04:13 PM BASA 0 05/19/2017 04:13 PM ABC 0.00 05/19/2017 04:13 PM Assessment and Plan: Primary Diagnosis: - 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 - 03/05/2017: BMBX in CR both by morphology and by Flow, cytogenetics 46 XX, no abnormalities - Chimerism 03/05/2017: is 100% donor donor POSITION CLASSIFIER: -Brain lesion on MRI 04/29: concerning for infection or malignancy. "Enhancing nodular medial right cerebellar lesion and numerous additional smaller enhancing juxtacortical bilateral cerebral, basal nuclei, and brainstem lesions with mild associated multifocal vasogenic edema likely reflecting leukemia. Opportunistic intracranial infection could appear similar. -No prior history of POSITION CLASSIFIER malignancy. LP 05/03/17 did not show evidence of leukemia. -CT Sinus05/01 with right maxillary mass, s/p: Bx, cultures and path negative -ID consult:Toxoplasma IgG positive, started on anti-toxo: sulfadiazine 1000mg PO four times daily, pyrimethamine, leucovorin 25mg MRI scan today 05/26/17 to assess POSITION CLASSIFIER lesions, 05/25, followed by Dr. Parisa Milian-Subdural is resolved and masses better. 3. Neuro/MSK: S/p fall at home with + LOC resulting in a traumatic Subarachnoid hemorrhage and infra orbital bleed Left -CT head 04/16: Moderate subarachnoid hemorrhage scattered throughout the bilateral hemispheric sulci -Propranolol to 20 mg TID x 1 month per neuro -T11 compression fractureduring her fall that has [...] ( sulfadiazine, pyrimethamine,) vs infection vs GVHD - If counts continue to drop may need BMbx at next visit Cardiac: Essential Hypertension, Sympathetic storming: Continue Propranolol 20 mg PO TID FEN/Renal: -Cr slight up likely from new abx's, encouraged fluids - Replace per BMT replacement protocol, she is high goal replacement; PO KCl to be given 40 meq BID for one week ID: Prophylasis: PenVK, Acyclovir, pentamidine (stopped because Prednisone was stopped in November 2016) and Posaconazole Please see POSITION CLASSIFIER section Last CD4 count above 300 in February 2017 GI:Trouble swallowing. Oropharyngeal dysphagia. Check a video esophagography. May need Speech Consult/Swallow evaluation Slight increase in LFT, ddx posa vs GVHD, will monitor Endo:BG management by endocrine, hypothyroid on Synthroid Psych:Low dose klonopin and trazodone at bedtime. GvHD Staging/Grading: Chronic GvHD presentoral lichen planus, now with burning when she eats Start diphon rinse Dropping counts likely from antibiotics vs infections vs GVHD, needs close monitoring, labs twice a week, to be faxed from us from local clinic RTC Weekly, D/W Dr. Parisa Milian to see when we can stop antibiotics 06/21 Ortho follow up 07/09 Dexa scan, Endo Luis Moody MD newspaper editor managing Blood and Marrow Transplantation [facility] in this encounter Plan of Treatment Date [...] Law M.D. on 06/17/2017 1:57 PM. * CMV QUANT PCR-BLOOD (06/02/2017 12:36 PM) [...] NOT DETECTED [IU]/mL Specimen Performing Laboratory Blood [facility] [address] [place] [address] * MAGNESIUM (06/02/2017 12:36 PM) Component Value Ref Range Magnesium 1.8 1.6 - 2.6 mg/dL Specimen Performing Laboratory Blood [facility] [address] [place] [address] * COMPREHENSIVE METABOLIC PANEL (06/02/2017 12:36 PM) [...] Pharmacist for questions. 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
--- OUTSIDE RECORDS SUMMARY | 2017-07-30 04:01 | XMS REPORT | Encounter Summary ---
Author Author [facility] Organization [facility] Address Unknown Phone Unavailable Care Team Providers Care Front Desk Supervisor Name Role Phone PCP Unavailable Reason for Visit * Reason Comments Heme/Onc Care Encounter Details Date Type Department Care Team Description 05/13/2017 [facility] Annalee Virk MD Encounter Cancer Center - BMT [address] [facility] [address] [place] [address] [address] [place] [address] [phone] Social History Tobacco Use Types Packs/Day Years [...] at bedtime daily. mL) injection PEN Insulin [place] Use as needed for insulin 100 Each [...] times daily. for 1 week after surgery uchicltj-olacvclge-mscufg Apply 1 cm to left eye as [...] as of this encounter Progress Notes * Michele Acharya RN - 05/13/2017 10:56 AM CDT Donna Wilde 61 y.o. female 05/13/2017 Transplant: 03/02/2016 Notes - Pt to clinic via wheelchair with family. Labs obtained peripherally from right AC. Dr. Virk in to see patient, labs reviewed. ANC 0.9, 300mcg of Zarxio ordered. 300mcg of Zarxio injected in RLQ of abdomen. Potassium is 3.4, 40meq PO Potassium ordered per standard electrolyte protocol. Pt tolerated replacement well. Dr. Franks with Palliative Care in to meet with patient. Pt was given a copy of today's labs and an updated AVS prior to leaving clinic stable and ambulatory. Fatigue Scale:0 Pain Scale: 0 Michele Acharya RN 05/13/2017 in this encounter Miscellaneous Notes * Addendum Note - Marylou Barba - 05/13/2017 11:59 PM CDT Encounter addended by: Marylou Barba on: 05/19/2017 5:30 PM
Actions taken: Charge Capture section accepted in this encounter Plan of Treatment Date Type Specialty Care Team Description 06/28/2017 Procedure Pass Infectious Diseases as of this encounter Results * MAGNESIUM (05/13/2017 10:50 AM) Component Value Ref Range Magnesium 1.7 1.6 - 2.6 mg/dL Specimen Performing Laboratory Blood [facility] [address] [place] [address] * CMV QUANT PCR-BLOOD (05/13/2017 10:50 AM) Component Value Ref Range IU/mL CMV Blood [...] NOT DETECTED [IU]/mL Specimen Performing Laboratory Blood [facility] [address] [place] [address] * COMPREHENSIVE METABOLIC PANEL (05/13/2017 10:50 AM) Component Value Ref Range Sodium 136 (L) 137 - 147 MMOL/L Potassium 3.4 (L) 3.5 - 5.1 MMOL/L Chloride 105 98 - 110 MMOL/L Glucose 165 (H) 70 - 100 MG/DL Blood Urea Nitrogen 18 7 - 25 MG/DL Creatinine 1.13 (H) 0.4 - 1.00 MG/DL Calcium 10.4 8.5 - 10.6 MG/DL Total Protein 6.0 6.0 - 8.0 G/DL Total Bilirubin 0.6 0.3 - 1.2 MG/DL Albumin 3.2 (L) 3.5 - 5.0 G/DL Alk Phosphatase 204 (H) 25 - 110 U/L AST (SGOT) 61 (H) 7 - 40 U/L CO2 26 21 - 30 MMOL/L ALT (SGPT) 42 7 - 56 U/L Anion Gap 5 3 - 12 eGFR Non 49 (L) [...] Pharmacist for questions. Specimen Performing Laboratory Blood [facility] [address] [place] [address] * CBC AND DIFF (05/13/2017 10:50 AM) Component Value Ref Range White Blood Cells 3.0 (L) 4.5 - 11.0 K/UL RBC 2.55 (L) 4.0 - 5.0 M/UL Hemoglobin 9.5 (L) 12.0 - 15.0 GM/DL Hematocrit 27.4 (L) 36 - 45 % MCV 107.6 (H) 80 - 100 FL MCH 37.2 (H) 26 - 34 PG MCHC 34.6 32.0 - 36.0 G/DL RDW 18.4 (H) 11 - 15 % Platelet Count 58 (L) 150 - 400 K/UL MPV 7.0 7 - 11 FL Neutrophils 30 (L) 41 - 77 % Lymphocytes 49 (H) 24 - 44 % Monocytes 17 (H) 4 - 12 % Eosinophils 3 0 - 5 % Basophils 1 0 - 2 % Absolute Neutrophil Count 0.90 (L) 1.8 - 7.0 K/UL Absolute Lymph Count 1.50 1.0 - 4.8 K/UL Absolute Monocyte Count 0.50 0 - 0.80 K/UL Absolute Eosinophil Count 0.10 0 - 0.45 K/UL Absolute Basophil Count 0.00 0 - 0.20 K/UL Specimen Performing Laboratory Blood [facility] [address] [place] [address] in this encounter Visit Diagnoses Diagnosis 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HCC) Bone marrow replaced by transplant History of stem cell transplant (HCC) Peripheral stem cells replaced by transplant in this encounter Administered Medications Medication Order MAR Action Action Date Dose Rate Site filgrastim-sndz (ZARXIO) inj syringe 300 Given 05/13/2017 300 mcg Abdominal mcg 11:40 CDT Tissue 300 mcg, Subcutaneous, ONCE, 1 dose, Hilda 05/13/17 at 1130, Cancer Center Infusion potassium chloride SR (K-DUR) tablet 40 Given 05/13/2017 40 mEq mEq 11:40 CDT 40 mEq, Oral, ONCE, 1 dose, Hilda 05/13/17 at 1130, DO NOT BREAK TABLET OR GRIND GRANULES in this encounter
--- OUTSIDE RECORDS SUMMARY | 2017-07-30 04:01 | XMS REPORT | Encounter Summary ---
Author Author [facility] Organization [facility] Address Unknown Phone Unavailable Care Team Providers Care Council On Aging Director Name Role Phone PCP Unavailable Reason for Visit * Reason Comments Eye Problem 1 week FUV; Pt states her VA hasn't changed since last visit. Pt states she does have some pain in OS. Encounter Details Date Type Department Care Team Description 05/19/2017 Office Visit [facility] Uriel Wall MD Vitritis of left eye Physicians - [address] Ophthalmology [address] [place] [address] [facility] [phone] [place] [address] Social History Tobacco Use Types [...] - Inhaled Oxygen - - Concentration Weight 56 kg (123 lb 7.3 oz) 05/19/2017 1:07 PM CDT Height 162.6 cm (5' 4.02") 05/19/2017 1:07 PM CDT Body Mass Index 21.18 05/19/2017 1:07 PM CDT in this encounter Functional Status [...] as of this encounter Progress Notes * Boris Purdy MD - 05/19/2017 1:00 PM CDT Formatting of this note may be different from the original. Body mass index is 21.18 kg/(m^2). Assessment and Plan: Problem Vitritis of Left Eye DM W/O Complication Type II (Hcc) Vision Impairment DM (diabetes mellitus) Longstanding limited vision OS. Doing well post-operatively. OK to dc vigamox, but would increase PF to QID and keep f/u with oncology. Vitreous culture, leukemia/lymphoma panel, flow cytometry, and toxoplasmosis PCR all negative. Repeat brain MRI planned per primary team to dictate further treatment. Defer to primary team. RTC 1 month or sooner if need arises. Boris Purdy MD Department of Ophthalmology PGY-3 Pager [phone] Add Maxitrol BID OS F/U 3 weeks ATTESTATION I personally performed the omalley portions of the E/M visit, discussed case with resident and concur with resident documentation of history, physical exam, assessment, and treatment plan unless otherwise noted. Staff name: Uriel Wlal MD Date: 05/19/2017 in this encounter Miscellaneous Notes * Assessment & Plan Note - Boris Purdy MD - 05/19/2017 2:53 PM CDT Associated Problem(s): Vitritis of left eye (Resolved 05/26/2017) . in this encounter Plan of Treatment Date Type Specialty Care Team Description 06/28/2017 Procedure Pass Infectious Diseases as of this encounter Visit Diagnoses Diagnosis Vitritis of left eye Crystalline deposits in vitreous in this encounter
--- OUTSIDE RECORDS SUMMARY | 2017-07-30 04:01 | XMS REPORT | Encounter Summary ---
Author Author [facility] Organization [facility] Address Unknown Phone Unavailable Care Team Providers Care Sheep Sticker Name Role Phone PCP Unavailable Reason for Visit * Reason Comments Post Operative Visit 1 day POV; Vit. Bx; pt states that she did fine overnight; PT denies eye pain Encounter Details Date Type Department Care Team Description 05/13/2017 Office Visit [facility] Uriel Wall MD Vitritis of left eye Physicians - [address] Ophthalmology [address] [place] [address] [facility] [phone] [place] [address] Social History Tobacco Use Types [...] this encounter Instructions * Patient Instructions - Yojana Ness MD - 05/13/2017 8:30 AM CDT Avoid straining or heavy lifting. Return on WednesdayMay 19 for 1 week post- op appointment. Use shield at nighttime when asleep. in this encounter Progress Notes * Yojana Ness MD - 05/13/2017 8:30 AM CDT Formatting of this note may be different from the original. There is no height or weight on file to calculate BMI. Assessment and Plan: Problem Vitritis of Left Eye POD#1 s/p PPV with vitreous biopsy on 05/12/[address] [facility] with Dr. Wall OS vit heme, very hazy with limited view in eye with h/o NLP vision p/t surgery ; limited view shows retina grossly in tact Doing well, without pain, IOP wnl Avoid heavy lifting, strenuous activity, or dunking head; shield at night Await lab results RTC 1 week Vigamox and PF TID OS - sent in to Pharmacy, and confirmed will be picked up by Jocelynn (pt's daughter) Pt seen with senior resident, Dr. Aguilar. Yojana Ness MD Department of Ophthalmology PGY-3 Pager [phone] in this encounter Miscellaneous Notes * Addendum Note - Yojana Ness MD - 05/13/2017 10:10 AM CDT Addended by: YOJANA NESS on: 05/13/2017 10:10 AM Modules accepted: Orders in this encounter Plan of Treatment Date Type Specialty Care Team Description 06/28/2017 Procedure Pass Infectious Diseases as of this encounter Visit Diagnoses Diagnosis Vitritis of left eye Crystalline deposits in vitreous in this encounter
--- OUTSIDE RECORDS SUMMARY | 2017-07-30 04:01 | XMS REPORT | Encounter Summary ---
Author Author [facility] Organization [facility] Address Unknown Phone Unavailable Care Team Providers Care Policy Loan Calculator Name Role Phone PCP Unavailable Encounter Details Date Type Department Care Team Description 05/13/2017 Orders Only [facility] Yoko Smith RN History of stem cell Cancer Center - BMT Exam transplant (HCC) (Primary [address] Dx) [address] [id number] Social History Tobacco Use Types Packs/Day Years [...] Diseases Name Priority Associated Diagnoses Order Schedule SPIROMETRY Routine History of stem cell Ordered: 05/13/2017 transplant (HCC) as of this encounter Visit Diagnoses Diagnosis History of stem cell transplant (HCC) - Primary Peripheral stem cells replaced by transplant in this encounter
--- OUTSIDE RECORDS SUMMARY | 2017-07-30 04:01 | XMS REPORT | Encounter Summary ---
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 (HCC) [place] [address] P [id number] Phone: [employer] MRI HEAD WO/W [phone] CONTRAST Reason for Visit * Reason Comments Heme/Onc Care Encounter Details Date Type Department Care Team Description 05/13/2017 Office Visit [facility] Annalee Virk MD Acute myeloid leukemia Cancer Center - BMT Exam [address] not having achieved [address] remission (HCC) (Primary [address] [place] [address] Dx) [place] [address] [phone] Social History Tobacco Use Types Packs/Day Years Used Date Never Smoker Smokeless Tobacco: Never Used Alcohol Use Drinks/Week oz/Week Comments No 0 Standard 0.0 drinks or equivalent Sex Assigned at Date Recorded Not on file as of this encounter Last Filed Vital Signs Vital Sign Reading Time Taken Blood Pressure 152/62 05/13/2017 10:50 AM CDT Pulse 63 05/13/2017 10:44 AM CDT Temperature 36.6 C (97.9 F) 05/13/2017 10:44 AM CDT Respiratory Rate 16 05/13/2017 10:44 AM CDT Oxygen Saturation 96% 05/13/2017 10:50 AM CDT Inhaled Oxygen - - Concentration Weight 56 kg (123 lb 6.4 oz) 05/13/2017 10:44 AM CDT Height 162.6 cm (5' 4.02") 05/13/2017 10:44 AM CDT Body Mass Index 21.17 05/13/2017 10:44 AM CDT in this encounter Functional Status [...] Progress Notes * Kandi Branham RN - 05/13/2017 12:10 PM CDT Date of Transplant: 03/02/16 CD34 Selected boost 07/08/2016 Preparative Regimen: Fludarabine/Melphalan Fully ablative/reduced intensity/NST: KAYLEE Disease: AML ([facility]) Disease status at transplant: 1st CR Cytogenetic/Fish AT DIAGNOSIS: HLA Match: 8:8 Donor & Cell source: matched sib (sister) [id number] PSC CMV: both POS ABO: both O POS Consents/Studies: 8322, blood, H&P, KAYLEE Flu/Hermila allo consent Coordinator: RUDDY MCKINNON RN CMV monitoring: Reactivation 10/27 - monitor Q2W until May per MD discretion 04/17 negative. 05/12 - pending EBV monitoring: N/A Chimerism results: 11/09/16 - 100% donor Transfusion parameters: Standard Electrolyte replacement goal: Standard GVHD location: Mouth Current GVHD treatment: Diphone rinse started 05/13/17 Tapers: (prednisone completed 11/16/16) PJP: Posaconazole Central line: Trifusion removed 03/24 LTFU Orders placed for 03/02/2018. labs, BMBX 05/13: Hospital Discharge visit. Patient admitted through ED with visual disturbance on 7/5, transferred from rehab to [facility] on 04/29 due to brain lesion seen on MRI. Infection vs malignancy. LP and BMB negative no plan for bx at this time. Ophthamalogy on 05/12 did vitreous biopsy procedure. Plan to repeat MRI in 2 weeks (week of 05/25-06/04) Having GHVD of mouth will start diphon rinse. Will give oral potassium today for low potassium level. Will give zarxio for low ANC<1000. Requesting that patient get labs drawn locally one weekly on Mondays and see BMT MD and labs once weekly. RTC 05/19 Eye follow up, Labs, (cbc,cmp,cmv,mag) 05/26 MRI at 1015 am, Labs, 06/21 Ortho follow up 07/09 Dexa scan, Annalee Lara MD - 05/13/2017 12:10 PM CDT Formatting of this note may be different from the original. 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 Follow-up with orthopedic surgery, x-rays showed adequate healing. Patient also underwent left vitreal biopsy with ophthalmology, await results Planning a repeat MRI week of 05/25 Dr. Llanos from [place] Feeling well, reports burning sensation in her [...] Donor & Cell source: matched sib (sister) [id number] PSC CMV: both POS ABO: both O POS Consents/Studies: 8322, blood, H&P, KAYLEE Flu/Hermila allo consent Coordinator: RUDDY MCKINNON, RN Donna Wilde is a 61 y.o. female with a PMH of DM, HTN and HLD who presented from [facility] ED with a leukocytosis concerning for Leukemia. Per her daughter, in early December 2014 she developed a chronic cough which was unremitting. She then presented to due to [facility] ED with complains of weakness, fatigue [...] and referred to Dr. Óscar Jones in [place], hydrea was DC due to thrombocytopenia. She [...] please see above Review of Systems Constitutional: Fatigue, thin build [...] Social HX: . Pt is originally from [place] and is pitcairn islander speaking only. She has been living in [facility] for the past 15 years however she [...] under the skin at bedtime daily. Insulin [place] (Disposable) 31 gauge x 1/4" ndle Use as needed for insulin administration lancets (ACCU-CHEK FASTCLIX) [place] To check blood sugars before meals and [...] times daily. for 1 week after surgery pulhyxuk-ttnhptoof-ypbvbxgqmozij (MAXITROL) 3.5 mg/g-10,000 unit/g-0.1 % ophthalmic ointment [...] Tabs by mouth four times daily. Vitals: 05/13/17 1044 05/13/17 1050 BP: 152/62 152/62 Pulse: 63 Resp: 16 Temp: 36.6 C (97.9 F) TempSrc: Oral SpO2: 96% 96% Weight: 56 kg (123 lb 6.4 oz) Height: 162.6 cm (64.02") Body mass index is 21.17 kg/(m^2). Vitals, BMI noted and reviewed Pain [...] present. Cardiovascular: Normal rate and regular rhythm. Pulmonary/Chest: Effort normal. No respiratory distress. She has no wheezes. She exhibits no tenderness. Abdominal: Soft. Bowel sounds are normal. She exhibits no distension and no mass. There is no rebound and no guarding. Musculoskeletal: She exhibits no edema. Lymphadenopathy: She has no cervical adenopathy. Neurological: Proximal steroid induced myopathy Skin: Skin is warm and dry. No rash noted. No pallor. Psychiatric: She has a normal mood and affect. Her behavior is normal. Nursing note and vitals reviewed. Comprehensive Metabolic Profile Lab Results Component Value Date/Time NA 136 (L) 05/13/2017 10:50 AM K 3.4 (L) 05/13/2017 10:50 AM CL 105 05/13/2017 10:50 AM CO2 26 05/13/2017 10:50 AM GAP 5 05/13/2017 10:50 AM BUN 18 05/13/2017 10:50 AM CR 1.13 (H) 05/13/2017 10:50 AM GLU 165 (H) 05/13/2017 10:50 AM Lab Results Component Value Date/Time CA 10.4 05/13/2017 10:50 AM PO4 3.9 05/04/2017 06:46 AM ALBUMIN 3.2 (L) 05/13/2017 10:50 AM TOTPROT 6.0 05/13/2017 10:50 AM ALKPHOS 204 (H) 05/13/2017 10:50 AM AST 61 (H) 05/13/2017 10:50 AM ALT 42 05/13/2017 10:50 AM TOTBILI 0.6 05/13/2017 10:50 AM GFR 49 (L) 05/13/2017 10:50 AM GFRAA 59 (L) 05/13/2017 10:50 AM CBC w/Diff Lab Results Component Value Date/Time WBC 3.0 (L) 05/13/2017 10:50 AM RBC 2.55 (L) 05/13/2017 10:50 AM HGB 9.5 (L) 05/13/2017 10:50 AM HCT 27.4 (L) 05/13/2017 10:50 AM MCV 107.6 (H) 05/13/2017 10:50 AM MCH 37.2 (H) 05/13/2017 10:50 AM MCHC 34.6 05/13/2017 10:50 AM RDW 18.4 (H) 05/13/2017 10:50 AM PLTCT 58 (L) 05/13/2017 10:50 AM MPV 7.0 05/13/2017 10:50 AM Lab Results Component Value Date/Time NEUT 30 (L) 05/13/2017 10:50 AM ANC 0.90 (L) 05/13/2017 10:50 AM LYMA 49 (H) 05/13/2017 10:50 AM ALC 1.50 05/13/2017 10:50 AM BRUCE 17 (H) 05/13/2017 10:50 AM AMC 0.50 05/13/2017 10:50 AM EOSA 3 05/13/2017 10:50 AM AEC 0.10 05/13/2017 10:50 AM BASA 1 05/13/2017 10:50 AM ABC 0.00 05/13/2017 10:50 AM Assessment and Plan: Primary Diagnosis: - 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 - 03/05/2017: BMBX in CR both by morphology and by Flow, cytogenetics 46 XX, no abnormalities - Chimerism 03/05/2017: is 100% donor donor DONOR CENTER TECHNICIAN: -Brain lesion on MRI 04/29: concerning for infection or malignancy. "Enhancing nodular medial right cerebellar lesion and numerous additional smaller enhancing juxtacortical bilateral cerebral, basal nuclei, and brainstem lesions with mild associated multifocal vasogenic edema likely reflecting leukemia. Opportunistic intracranial infection could appear similar. -No prior history of DONOR CENTER TECHNICIAN malignancy. LP 05/03/17 did not show evidence of leukemia. -CT Sinus05/01 with right maxillary mass, s/p: Bx, cultures and path negative -ID consult:Toxoplasma IgG positive, started on anti-toxo: sulfadiazine 1000mg PO four times daily, pyrimethamine, leucovorin 25mg MRI scan in 2 weeks to assess DONOR CENTER TECHNICIAN lesions, 05/25, followed by [place] 3. Neuro/MSK: S/p fall at home with [...] Followed by ophthalmology status post vitreal biopsy 05/13, follow up with Optho Heme: - Dropping counts, GCSF for ANC < 1000, likely multifactorial: Drugs( sulfadiazine, pyrimethamine,) vs infection vs GVHD - If counts continue to drop may need BMbx at next visit - Lovenox for DVT prophylaxis. FEN/Renal: -Cr slight up likely from new abx's, encouraged fluids - Replace per BMT replacement protocol, she is high goal replacement ID: Prophylasis: PenVK, Acyclovir, pentamidine and Posaconazole Please see DONOR CENTER TECHNICIAN section GI: Slight increase in LFT, ddx posa vs [...] faxed from us from local clinic RTC 05/19 Eye follow up, LabsMD (cbc,cmp,cmv,mag) 05/26 MRI at 1015 am, LabsMD 06/21 Ortho follow up 07/09 Dexa scan, Endo in this encounter [...] Specimen Performing Laboratory Blood OTHER OUTSIDE LAB * MRI HEAD WO/W CONTRAST (05/26/2017 10:44 AM) Specimen Performing Laboratory [facility] RAD RESULTS Impressions 1.Decrease in size and number of multiple cerebral and cerebellar enhancing lesions. Differential considerations include improvement in DONOR CENTER TECHNICIAN leukemia or DONOR CENTER TECHNICIAN infection. 2.Resolution of the left subdural hematoma [...] enhancing lesions. Differential considerations include improvement in DONOR CENTER TECHNICIAN leukemia or DONOR CENTER TECHNICIAN infection. 2. Resolution of the left subdural [...] Salas M.D. on 05/26/2017 11:26 AM. * CMV QUANT PCR-BLOOD (05/19/2017 4:13 PM) [...] NOT DETECTED [IU]/mL Specimen Performing Laboratory Blood [facility] [address] [place] [address] * MAGNESIUM (05/19/2017 4:13 PM) Component Value Ref Range Magnesium 1.7 1.6 - 2.6 mg/dL Specimen Performing Laboratory Blood [facility] [address] [place] [address] * CBC AND DIFF (05/19/2017 4:13 PM) [...] 0.20 K/UL Specimen Performing Laboratory Blood [facility] [address] [place] [address] * COMPREHENSIVE METABOLIC PANEL (05/19/2017 4:13 PM) [...] for questions. Specimen Performing Laboratory Blood [facility] [address] [place] [address] in this encounter Visit Diagnoses Diagnosis Acute myeloid leukemia not having achieved remission (HCC) - Primary in this encounter
--- OUTSIDE RECORDS SUMMARY | 2017-07-30 04:01 | XMS REPORT | Encounter Summary ---
Author Author [facility] Organization [facility] Address Unknown Phone Unavailable Care Team Providers Care Student Counsellor Name Role Phone PCP Unavailable Reason for Visit * Reason Comments Pain Encounter Details Date Type Department Care Team Description 05/13/[address] [facility] Annalee Virk MD Pain of left hip joint Cancer Center - BMT Exam [address] (Primary Dx);Acute [address] myeloid leukemia in [address] [place] [address] remission (HCC);[place] [address] appetite;Insomnia due to [phone] medical P condition;Neoplastic sandy-Berna Oh, malignant related fatigue;Acquired lesion [address] of central nervous system [address] [place] [address] [phone] Social History Tobacco Use Types Packs/Day Years [...] Progress Notes * Berna Franks MD - 05/13/2017 11:45 AM CDT Formatting of this note may be different from the original. PALLIATIVE CARE OUTPATIENT VISIT PC Outpatient Visit #: 1 hosp d/c Date of Service: 05/13/2017 Referring Clinician : marta Preferred Name: Donna PCP: Ghada No PCP PC Code: [id number] ASSESSMENT Donna Wilde is a 61 y.o. 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 Prognosis (Estimated): Based on current function, current medical issues, goals of care, and prognosis models, my estimated prognosis is unknown, depends on how ALUM PLANT OPERATOR lesions evolve PLAN PAIN: Intensity: ; mild/moderate intermittent CURRENT REGIMEN: vicodin prn PLAN: continue DYSPNEA: Intensity: ; none CURRENT REGIMEN: none PLAN: monitor FATIGUE/DECONDITIONING: Intensity: ;moderate CURRENT REGIMEN: exercises at home, was cleared by PT prior to discharge from hospital PLAN: monitor INSOMNIA: Intensity: ;mild, improved at home CURRENT REGIMEN: klonipin .25 q hs, melatonin 3 q hs PLAN: continue NAUSEA/ANOREXIA: Intensity: , ; mild, appetite improved at home CURRENT REGIMEN: none PLAN: monitor BOWEL REGIMEN: Intensity: ;moving bowels CURRENT REGIMEN: miralax prn PLAN: continue DEPRESSION: Intensity: ;denies CURRENT REGIMEN: none PLAN: monitor ANXIETY: Intensity: ;mild, worse when she has appointments CURRENT REGIMEN: klonipin at hs PLAN: continue PRACTICAL ISSUES: in hospital pt/family wanted to defer any ACP until such time as they have a good understanding of exact diagnosis of the ALUM PLANT OPERATOR lesions. They have had worry from diagnosis [...] be important to plan to have a testing coordinator there to assure that all information is [...] Living Will: none TPOPP: none Return to clinic: will follow up in coming few weeks as pt has repeat MRI to assess the ALUM PLANT OPERATOR lesions SUBJECTIVE Reason for Visit: No chief complaint on file. Donna Wilde is a 61 y.o. female with Pertinent medical history includes AML transformed from CMML2 with t(7: 11) status post anesthesia transplant 1 year ago. Per chart review: Early April, the patient was initially transferred to [facility] for minutes at hospital following a traumatic fall. She sustained a fracture and was also found to have non-aneurysmal subarachnoid hemorrhage. Her hip fracture was stabilized with intramedullary nailing 04/19/2017. Subarachnoid hemorrhage resolved without incident. She was transferred to [facility] inpatient rehab 04/27/2017. In the course [...] in the patient's brain most likely represent ALUM PLANT OPERATOR spread of the patient's AML. Should the patient have ALUM PLANT OPERATOR spread of her AML, treatment options would be very limited and poor. Palliative care seeing patient in follow up from hospital stay for sx mgmt and support. Today, pt reports Left hip externally is where her pain is at. Taking 2-3 vicodin per day and this is controllin her pain adequately at present. She has a little pain in eyes and vision is ok had surgery in left eye Wednesday. She is not eating very well, wants to eat [employer] food. Her weight is down a little but family attributes this to her having less edema in the LE. In hospital she was also described as being depressed, today she states that mood is quite a bit better, as she has been able to be at home in her own environment. Sleep is okay, she uses kkonipin at HS as well as melatonin. She is not taking prozac or risperdone. Nausea and constipation presently controlled. She is accompanied by her son on this visit, dtr and spouse not present. [employer] offered, patient son states they usually have not had. [place] Symptom Assessment Scale (ESAS-r-CS) Did not do today 05/13/2017 Symptom / Score 0=Best Possible 10=Worst Possible Comprehensive Pain Assessment Words: achy Inten: mild moderate Locat: left thigh externally Durat: intermittent with movement Aggr: mvmt Allev: pain med Review of Systems Constitutional: Positive for fatigue. HENT: Negative. Eyes: Positive for pain, redness and visual disturbance. Respiratory: Negative. Cardiovascular: Negative. Gastrointestinal: Negative for nausea. Musculoskeletal: Positive for arthralgias. Skin: Negative. Psychiatric/Behavioral: Positive for sleep disturbance. ONCOLOGY HISTORY No matching staging information was [...] at ENDO/GI INTERTROCHANTERIC HIP FRACTURE SURGERY Left UT ESOPHAGOGASTRODUODENOSCOPY TRANSORAL DIAGNOSTIC N/A 09/09/2016 ESOPHAGOGASTRODUODENOSCOPY performed by Hermila Cornejo MD at ENDO/GI UT NASAL/SINUS ENDOSCOPY W/MAXILLARY ANTROSTOMY Left 05/03/2017 FUNCTIONAL ENDOSCOPY SINUS SURGERY WITH MAXILLARY ANTROSTOMY performed by Charlotte Montelongo MD at Main OR/Periop UT PROPH TX N/P/PLTWR W/WO METHYLMETHACRYLATE FEMUR Left 04/19/2017 INSERTION CEPHALOMEDULLARY NAIL FEMUR performed by Shane Sam MD at Main OR/ Periop UT SIGMOIDOSCOPY FLX DX W/COLLJ SPEC BR/WA IF PFRMD N/A 04/14/2016 SIGMOIDOSCOPY DIAGNOSTIC performed by Shane Lynn MD at ENDO/GI UT SIGMOIDOSCOPY FLX DX W/COLLJ SPEC BR/WA IF PFRMD N/A 07/29/2016 SIGMOIDOSCOPY DIAGNOSTIC performed by Niharika Lam MD at ENDO/GI UT SIGMOIDOSCOPY FLX DX W/COLLJ SPEC BR/WA IF PFRMD N/A 09/09/2016 SIGMOIDOSCOPY DIAGNOSTIC performed by Hermila Cornejo MD at ENDO/GI UT SIGMOIDOSCOPY FLX W/BIOPSY SINGLE/MULTIPLE 09/09/2016 SIGMOIDOSCOPY BIOPSY [...] laying in bed in treatment, verbal, no grimace, well-developed Eyes: open, no discharge, no icterus, some redness bilaterally Lungs: no secretions, no acc muscle use, no apnea, CTAB Heart: RRR Abdomen: non distended, soft, nontender, minimal bowel sounds Extremities: moves all extremities, trace edema Neurologic: no seizures, no myoclonus, no neuro deficits, oriented to time, person and place Psych: calm, interactive, normal memory and judgement Skin: warm, dry, [...] before meals and at bedtime. Blood-Glucose Meter [facility] One Touch Verio meter brimonidine (ALPHAGAN P) [...] under the skin at bedtime daily. Insulin [place] (Disposable) 31 gauge x 1/4" ndle Use as needed for insulin administration lancets (ACCU-CHEK FASTCLIX) [facility] To check blood sugars [...] times daily. for 1 week after surgery fmkcvziv-xystrouzb-mhcfasmiymbsy (MAXITROL) 3.5 mg/g-10,000 unit/g-0.1 % ophthalmic ointment [...] CBC Lab Results Component Value Date/Time WBC 3.0 (L) 05/13/2017 10:50 AM HGB 9.5 (L) 05/13/2017 10:50 AM PLTCT 58 (L) 05/13/2017 10:50 AM Lab Results Component Value Date/Time NEUT 30 (L) 05/13/2017 10:50 AM ANC 0.90 (L) 05/13/2017 10:50 AM Comprehensive Metabolic Profile Lab Results Component Value Date/Time NA 136 (L) 05/13/2017 10:50 AM K 3.4 (L) 05/13/2017 10:50 AM BUN 18 05/13/2017 10:50 [...] AM GFRAA 59 (L) 05/13/2017 10:50 AM ADMINISTRATIVE Berna Franks MD, [facility] Palliative Care Attending Pager [phone] Nights/Weekends - Page [phone] for Palliative Care On-Call NEW - OUTPT Time [id number] [phone] 20 50 95 79547 30 60 [phone] 45 75 [phone] 60 90 135 F/U - OUTPT Time [id number] [phone] 96581 10 40 85 [id number] 15 45 90 [phone] 25 55 [phone] 40 70 115 in this encounter Plan of Treatment Date Type Specialty Care Team Description 06/28/2017 Procedure Pass Infectious Diseases as of this encounter Visit Diagnoses Diagnosis Pain of left hip joint - Primary 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 Decreased appetite Anorexia Insomnia due to medical condition Insomnia due to medical condition classified elsewhere Neoplastic malignant related fatigue Other malaise and fatigue Acquired lesion of central nervous system Unspecified disorders of nervous system in this encounter
--- OUTSIDE RECORDS SUMMARY | 2017-07-30 04:02 | XMS REPORT | Encounter Summary ---
Author Author [facility] Organization [facility] Address Unknown Phone Unavailable Care Team Providers Care Tomahawk Weapon System Operator Name Role Phone PCP Unavailable Encounter Details Date Type Department Care Team Description 05/06/2017 Orders Only [facility] Claudine Mendoza APRN S/P allogeneic bone Cancer Center - BMT Exam [address] marrow transplant ( HCC) [address] [place] [address] (Primary Dx) [address] [address] [place] [address] [phone] Social History Tobacco Use Types Packs/Day Years [...] this encounter Results * COMPREHENSIVE METABOLIC PANEL (05/13/2017 10:50 AM) [...] [facility] [address] [place] [address] * CBC AND DIFF (05/13/2017 10:50 AM) [...] [facility] [address] [place] [address] in this encounter Visit Diagnoses Diagnosis 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HCC) - Primary Bone marrow replaced by transplant in this encounter
--- OUTSIDE RECORDS SUMMARY | 2017-07-30 04:02 | XMS REPORT | Encounter Summary ---
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 mL) injection PEN Insulin Merrill Use as needed for insulin 100 Each [...] petrolatum (ABSORBASE) affected areas as needed oint ezudpqyb-gbedzkthu-uyyqpe Apply 1 cm to left eye as [...] mg tablet daily with breakfast. prednisolone acetate Apply 1 Drop to left [...] Diseases as of this encounter Results * CULTURE-WOUND/TISSUE/FLUID(AEROBIC ONLY)W/SENSITIVITY (05/12/2017 2:45 PM) Component Value Ref Range Battery Name ROUTINE CULTURE Specimen Description SWAB LEFT EYE VITREOUS Special Requests HOLD 7 DAYS Culture NO GROWTH 7 DAYS Report Status FINAL 05/19/2017 Specimen Performing Laboratory Swab [facility] [address] [place] [id number] * FLOW CYTOMETRY (05/12/2017 2:23 PM) Component Value Ref Range PATHOLOGY REPORT [facility] [email or web address] Sophia Yip MD, Director of Clinical Laboratory Karthikeyan Jordan MD, Director of Flow Cytometry Laboratory Department of Pathology and Laboratory Medicine [address] [place] [id number] Surgical Pathology Office: [phone] FLOW CYTOMETRY REPORT NAME: CORRY MENDOZA SURG PATH #: [id number] MR #: [id number] SPECIMEN CLASS: LC BILLING #: [id number] ALT ID #: LOCATION: [facility] DATE OF PROCEDURE: 05/12/2017 AGE: 61 SEX: F DATE RECEIVED: 05/12/2017 : 1955 TIME RECEIVED: 14:26 PHYSICIAN: URIEL WALL MD DATE OF REPORT: 05/14/2017 COPY TO: [...] in this report. +++Electronically Signed Out By+++ ching/05/13/2017 Interpreted by: MD Mansoor Mckeon MBBS Resident 05/14/2017 ################################################## ###################### Lab Data: Flow Cytometry - Acute Myeloid Leukemia Screen Myeloid Associated Markers (% Positive Cells): VL43d=1; CD13=0; CD33=0; EK730=6 Miscellaneous Markers (% Positive Cells): CD34=0; OB30=807; HLA-Dr=0 Cell Viability (%): 97 Number of Cells Analyzed: 8901 Total Number of Markers: 7 Summary of Marker Combinations: 34/117/33/13/11b/45/38/Dr Flow Cytometry - Lymphoma Panel B Cell Associated Markers (% Positive Cells): CD19=0; CD20=0; CD23=0; Ferrelview=0; Lambda=0; Ferrelview:Lambda ratio=n/a T Cell Associated Markers (% Positive Cells): FP5=600; CD3=98; CD4=48; CD5=97; CD7=88; CD8=53 CD4:CD8 ratio=0.9 Miscellaneous Markers (% Positive Cells): CD10=0; CD34=0; CD38=95; FK12=165; CD56=20; FMC7=0; OU266=9 Cell Viability (%): 97 Number of Cells Analyzed: 6532 Total Number of Markers: 23 Summary of Marker Combinations: Ferrelview/Lambda/5/10/19/45/38/20; FMC7/23/5/34/200/45/19; 2/7/5/3/4/45/56/8 Flow Cytometry - Large Granular Lymphocyte/T Cell Receptor Panel T Cell Associated Markers (% Positive Cells): CD2=99; CD3=98; CD5=94; CD7=90; TCRab=95; TCRgd=1 Miscellaneous Markers (% Positive Cells): CD16=0; PD51=287; CD56=23; CD57=35; CD94=4 Cell Viability (%): 97 Number of Cells Analyzed: 6532 Total Number of Markers: 16 Summary of Marker Combinations: 2/7/5/16/57/45/56/3; TCRab/TCRgd/94/16/57/45/56/3 This test was developed and its performance characteristics determined by the [facility] Flow Cytometry Laboratory. It has not been cleared or approved by the U.S. Food and Drug Administration (FDA). The FDA has determined that such clearance or approval is not necessary. Specimen Performing Laboratory [facility] * LEUKEMIA/LYMPHOMA PANEL FLUID/TISSUE (05/12/2017 2:23 PM) Component Value Ref Range Leuk/Lymph Interpretation SEE PATHOLOGY REPORT Specimen/LLM VITREOUS FLUID Specimen Performing Laboratory [facility] [address] [place] [address] * [facility] IBT/HEMA REFERENCE LAB (05/12/2017 12:30 PM) Component [...] developed and its performance characteristics determined by [employer]. It has not been cleared or approved by the U.S. Food and Drug Administration. Results should be used in conjunction with clinical findings, and should not form the sole basis for a diagnosis or treatment decision. PCR tests are performed pursuant to a license agreement with [employer]. Testing Performed At: [facility] [facility] [address] [place], [place] [id number] CLIA ID: [id number] Specimen Performing Laboratory REFERENCE LAB * [facility] REFERENCE TEST (05/12/2017 12:30 PM) Component Value Ref Range Test Toxoplasma gondii Quantitative Realtime PCR (vitreous fluid) Reference Lab [facility] Results Ref Lab SEE REF LAB RESULT Specimen Mail Vitreous fluid, left eye Specimen Performing Laboratory [facility] in this encounter Visit Diagnoses Diagnosis Panuveitis of left eye Panuveitis in this encounter Admitting Diagnoses Diagnosis Panuveitis, left eye in this encounter
--- OUTSIDE RECORDS SUMMARY | 2017-07-30 04:02 | XMS REPORT | Encounter Summary ---
Author Author [facility] Organization [facility] Address Unknown Phone Unavailable Care Team Providers Care Operating Room Manager Name Role Phone PCP Unavailable Encounter Details Date Type Department Care Team Description 05/10/2017 Hospital [facility] Shane Sam MD Encounter Hospital Radiology [address] [place] [address] 2ND FLOOR [phone] [place] [address] [phone] Social History Tobacco Use Types Packs/Day Years [...] 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 mL) injection PEN Insulin [place] Use as needed for insulin 100 Each 6 02/24/2017 (Disposable) 31 gauge x administration 1/" ndle leucovorin 25 mg tab Take 1 [...] petrolatum (ABSORBASE) affected areas as needed oint uejwwtnd-svxpnfrut-ydfzpf Apply 1 cm to left eye as [...] * HIP 2-3 VIEWS W PELVIS LT (05/10/2017 8:13 AM) Specimen Performing Laboratory [facility] Impressions Findings/impression: 1. There has been interval IM nail fixation of the proximal left femur with a fixation blade in the femoral neck. There is improved alignment of the intertrochanteric fracture with mild comminution of the greater trochanter redemonstrated. There is persistent cephalad displacement of the lesser trochanter. Mild hazy density about the lesser trochanter may reflect developing callus. There are skin tammi laterally. This is often not a vascular calcifications in the thigh. 2. Degenerative changes of the lower lumbar spine are noted. There is narrowing of the right hip joint space consistent with mild degenerative change. No acute abnormality within the pelvis. Finalized by Ovidio Thompson M.D. on 05/10/2017 9:30 AM. Dictated by Ovidio Thompson M.D. on 05/10/2017 9:27 AM. Narrative AP pelvis and two-view left hip INDICATION: Postoperative state COMPARISON: Left femur April 17, 2017, AP pelvis April 16, 2017, CT pelvis May 01, 2017 Procedure Note Interface, Radiant Results - 05/10/2017 9:33 AM CDT AP pelvis and two-view left hip INDICATION: Postoperative state COMPARISON: Left femur April 17, 2017, AP pelvis April 16, 2017, CT pelvis May 01, 2017 IMPRESSION Findings/impression: 1. There has been interval IM nail fixation of the proximal left femur with a fixation blade in the femoral neck. There is improved alignment of the intertrochanteric fracture with mild comminution of the greater trochanter redemonstrated. There is persistent cephalad displacement of the lesser trochanter. Mild hazy density about the lesser trochanter may reflect developing callus. There are skin tammi laterally. This is often not a vascular calcifications in the thigh. 2. Degenerative changes of the lower lumbar spine are noted. There is narrowing of the right hip joint space consistent with mild degenerative change. No acute abnormality within the pelvis. Finalized by Ovidio Thompson M.D. on 05/10/2017 9:30 AM. Dictated by Ovidio Thompson M.D. on 05/10/2017 9:27 AM. in this encounter Visit Diagnoses Diagnosis Post-operative state Other postprocedural status in this encounter
--- OUTSIDE RECORDS SUMMARY | 2017-07-30 04:02 | XMS REPORT | Encounter Summary ---
Author Author [facility] Organization [facility] Address Unknown Phone Unavailable Care Team Providers Care Research And Development Chemist Name Role Phone PCP Unavailable Encounter Details Date Type Department Care Team Description 05/07/2017 Orders Only [facility] Shane Sam MD Post- operative state Physicians - Orthopedics [address] (Primary Dx) [address] [place] [address] 1ST AND 2ND FLOOR [phone] [place] [address] [phone] Social History Tobacco Use Types Packs/Day Years [...]
--- OUTSIDE RECORDS SUMMARY | 2017-07-30 04:02 | XMS REPORT | Encounter Summary ---
Author Author [facility] Organization [facility] Address Unknown Phone Unavailable Care Team Providers Care Outboard Motors Experimental Mechanic Name Role Phone PCP Unavailable Reason for Visit * Reason Comments Post Operative Visit left femur Encounter Details Date Type Department Care Team Description 05/10/2017 Office Visit [facility] Shane Sam MD Closed displaced Phys[facility] - Orthopedics [address] intertrochanteric [address] fracture of left [place] [address] with routine healing, 1ST AND 2ND FLOOR [phone] [place] [address] (Primary Dx) [phone] Social History Tobacco Use Types Packs/Day Years Used Date Never Smoker Smokeless Tobacco: Never Used Tobacco Cessation: Counseling Given: Yes Alcohol Use Drinks/Week oz/Week Comments No 0 Standard 0.0 drinks or equivalent Sex Assigned at Date Recorded Not on file as of this encounter Last Filed Vital Signs Vital Sign Reading Time Taken Blood Pressure 147/74 05/10/2017 7:58 AM CDT Pulse 75 05/10/2017 7:58 AM CDT Temperature - - Respiratory Rate - - Oxygen Saturation - - Inhaled Oxygen - - Concentration Weight 63.5 kg (140 lb) 05/10/2017 7:58 AM CDT Height 162.6 cm (5' 4") 05/10/2017 7:58 AM CDT Body Mass Index 24.03 05/10/2017 7:58 AM CDT in this encounter Functional Status [...] Progress Notes * Shane Sam MD - 05/10/2017 8:10 AM CDT Ms. Nitin Wilde presents today for followup and evaluation of her left intertrochanteric hip fracture. Patient reports no complaints. On physical examination, she demonstrates excellent healing of her surgical wounds in all 3 locations. Her surgical tammi were removed and replaced with benzoin and Steri-Strips today. She remains neurovascularly intact to the left lower extremity. She is able to place weight on her left lower extremity, but does demonstrate some pain in the groin region and at the hip. X-rays obtained today include AP and lateral views of the left femur, as well as an AP pelvis which demonstrate some settling of the intertrochanteric portion of it. The fracture is still plainly evident. The alignment is acceptable. Impression: Left intertrochanteric hip fracture. Plan: Given these findings, I would recommend the patient continue to weight bear as tolerated. I would like to see her back in 6 weeks to reassess her clinically and radiographically. I had the opportunity to answer all of her questions prior to her departure from clinic. ([id number]) in this encounter Plan of Treatment Date Type Specialty Care Team Description 06/28/2017 Procedure Pass Infectious Diseases as of this encounter Visit Diagnoses Diagnosis Closed displaced intertrochanteric fracture of left femur with routine healing , subsequent encounter - Primary in this encounter
--- OUTSIDE RECORDS SUMMARY | 2017-07-30 04:02 | XMS REPORT | Encounter Summary ---
Author Author [facility] Organization [facility] Address Unknown Phone Unavailable Care Team Providers Care Soft Top Installer Name Role Phone PCP Unavailable Encounter Details Date Type Department Care Team Description 05/12/2017 Orders Only [facility] Annalee Virk MD History of stem cell Cancer Center - BMT Exam [address] transplant (HCC) (Primary [address] Dx) [address] [place] [address] [place] [address] [phone] Social History Tobacco Use Types Packs/Day Years [...] Specimen Performing Laboratory Blood [facility] [address] [place] [address] * CMV QUANT PCR-BLOOD (05/13/2017 10:50 AM) [...] Performing Laboratory Blood [facility] [address] [place] [address] in this encounter Visit Diagnoses Diagnosis History of stem cell transplant (HCC) - Primary Peripheral stem cells replaced by transplant in this encounter
--- OUTSIDE RECORDS SUMMARY | 2017-07-30 04:05 | XMS REPORT | Encounter Summary ---
Author Author [facility] Organization [facility] Address Unknown Phone Unavailable Care Team Providers Care On Awake Counselor Name Role Phone PCP Unavailable Encounter Details Date Type Department Care Team Description 05/03/2017 Procedure Pass Main Operating Room [address] [place] [address] Social History Tobacco Use Types Packs/Day Years Used Date Never Smoker Smokeless Tobacco: Never Used Alcohol Use Drinks/Week oz/Week Comments No 0 Standard 0.0 drinks or equivalent Sex Assigned at Date Recorded Not on file as of this encounter Functional Status Functional Status Response Date of Assessment Does the patient have a hearing impairment: No 04/30/2017 Does the patient have a visual impairment: Yes 04/30/2017 Does the patient have impaired ambulation: Yes 04/30/2017 Does the patient have an activity of daily living Yes 04/30/2017 (ADL) impairment: Does the patient have an instrumental activity of Yes 04/27/2017 daily living (IADL) impairment: Cognitive Status Response Date of Assessment Does the patient have a cognitive impairment: No 04/27/2017 as of this encounter Plan of Treatment Date Type Specialty Care Team Description 06/28/2017 Procedure Pass Infectious Diseases as of this encounter Visit Diagnoses Not on filein this encounter
--- OUTSIDE RECORDS SUMMARY | 2017-07-30 04:05 | XMS REPORT | Encounter Summary ---
Author Author [facility] Organization [facility] Address Unknown Phone Unavailable Care Team Providers Care Metal Fitter Name Role Phone PCP Unavailable Reason for Visit * Auth/Cert Status Reason Specialty Diagnoses / Referred By Referred To Procedures Contact Contact Diagnoses Nasal cavity mass myeloproliferati ve neoplasms Brain mass Encounter Details Date Type Department Care Team Description 04/30/2017 [place] [address] Vale Addison MD Nasal cavity mass - Encounter [address] 05/06/2017 [place] [address] [address] [place] [address] [phone] Edward Howe [address] [facility] [address] [place] [address] [phone] Social History Tobacco Use Types Packs/Day Years Used Date Never Smoker Smokeless Tobacco: Never Used Alcohol Use Drinks/Week oz/Week Comments No 0 Standard 0.0 drinks or equivalent Sex Assigned at Date Recorded Not on file as of this encounter Last Filed Vital Signs Vital Sign Reading Time Taken Blood Pressure 119/53 05/06/2017 12:08 PM CDT Pulse 60 05/06/2017 12:08 PM CDT Temperature 36.5 C (97.7 F) 05/06/2017 12:08 PM CDT Respiratory Rate - - Oxygen Saturation 100% 05/06/2017 12:08 PM CDT Inhaled Oxygen - - Concentration Weight 55.2 kg (121 lb 9.6 oz) 05/06/2017 3:29 AM CDT Height 162.6 cm (5' 4") 04/30/2017 5:40 PM CDT Body Mass Index 20.87 05/06/2017 3:29 AM CDT in this encounter Functional Status [...] No 05/06/2017 as of this encounter Discharge Summaries * Edward Mcallister DO - 05/06/2017 11:39 AM CDT Formatting of this note may be different from the original. Physician Discharge Summary Name: Donna Wilde Date Of : 1955 Age: 61 years Admit date: 04/30/2017 Discharge date: 05/06/2017 Attending Physician: Dr. Mcallister Service: Med- CT 1 Physician Summary completed by: Claudine Mendoza APRN Reason for hospitalization: Admit for brain lesions identified on MRI. 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 Admission Physical Exam notable for: Vital Signs: Last Filed In 24 Hours Vital Signs: 24 Hour Range BP: 154/64 (04/30 1740) Temp: 36.8 C (98.3 F) (04/30 1740) Pulse: 62 (04/30 1740) Respirations: 18 PER MINUTE (04/30 1740) SpO2: 100 % (04/30 1740) O2 Delivery: None (Room Air) (04/30 1740) Height: 162.6 cm (64") (04/30 1740) BP: (121-154)/(54-64) Temp: [36.8 C (98.2 F)-36.9 C (98.4 F)] Pulse: [62-79] Respirations: [18 PER MINUTE] SpO2: [97 %-100 %] O2 Delivery: None (Room Air) Intensity Pain Scale 0-10 (Pain 1): (not recorded) Performance Status (Karnofsky): 40% Disabled, requires special care and assistance General: Alert, cooperative, no distress, appears stated age Head: Normocephalic, without obvious abnormality, atraumatic Eyes: Conjunctivae/corneas clear. PERRL. Throat: Lips, mucosa and tongue normal. Teeth and gums normal Neck: Supple, symmetrical, trachea midline, no adenopathy Lungs: Clear to auscultation bilaterally Heart: Regular rate and rhythm, S1, S2 normal, no murmur, click rub or gallop Abdomen: Soft, non-tender. Bowel sounds normal. No masses. No organomegaly. Extremities: Extremities normal, atraumatic, no cyanosis or edema Skin: Skin color, texture, turgor normal. No rashes or lesions Musculoskeletal: Normal / Negative Psych: Normal Admission Lab/Radiology studies notable for: 24-hour labs: No results found for this visit on 04/30/17 (from the past 24 hour(s)). Point of Care Testing: (Last 24 hours): Brief Hospital Course: The patient was admitted and the following issues were addressed during this hospitalization: (with pertinent details). 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 - 03/05/2017: BMBX in CR both by morphology and by Flow, cytogenetics 46 XX, no abnormalities - Chimerism 03/05/2017: is 100% donor donor DISC INSPECTOR: - MRINew brain lesion on MRI 04/29: concerning for infection or malignancy. "Enhancing nodular medial right cerebellar lesion and numerous additional smaller enhancing juxtacortical bilateral cerebral, basal nuclei, and brainstem lesions with mild associated multifocal vasogenic edema likely reflecting leukemia. Opportunistic intracranial infection could appear similar. Etiology of the brain lesions is still unknown - No prior history of DISC INSPECTOR malignancy. LP 04/12/17 did not show evidence of leukemia. Plan: 1. CT scans chest abdomen and pelvis: Mild cardiomegaly, borderline vascular congestion patchy groundglass opacity suggesting volume overload. Atypical infectious etiology considered less likely. Abdomen: Interval ORIF of left intertrochanteric and trochanteric fractures with persistent surrounding soft tissue stranding. Mild splenomegaly. Persistent trace dependent pelvic ascites. 2. CT Sinus : Bx cult, stains, histo-path neg to date. 3. Ophthalmology consultation cont current meds, add pred L eye and cyclopentoate L eye 4. ID recommendations noted/ appreciated- toxoplasma IgG positive. Aspergillus negative, Other tests awaited. 5. Neurosurgery consultation noted/ appreciated: No plans for biopsy at this time. 6. LP 05/03/2017, unrevealing to date 7. Obtained blood cultures, NGTD 7. Plan to cont anti-toxo and fungal tx. MRI scan in 2 weeks to assess DISC INSPECTOR lesions. 3. Neuro/MSK: Traumatic Subarachnoid hemorrhage and infra orbital bleed L. -s/p fall at home with + LOC -CT head 04/16: Moderate subarachnoid hemorrhage scattered throughout the bilateral hemispheric sulci >decreased propranolol to 15mg TID for neuro storming, will wean as tolerated Musculoskeletal/ Orthopedic Injuries- -T11 compression fractureduring her fall that has remained stable during this admission -displaced left intertrochanteric femur fractureand required surgery on 2016 for stabilization -Currently WBAT for LLE. -Working with PT/OT, planning possible dsch to home today. Cleared by PT/OT 4. Pain control: On Ultram, avoid narcotics. 5. Eyes: - Panuveitis and NAOIN, vision loss, left eye - Continue brimonidine and maxitrol - She has no light perception in the left eye, since early 03/2017 - Ophthalmology opinion as above, will arrange OP f/u Heme: - Anemia and thrombocytopenia, stable. Thrombocytopenia improving since orthopedic surgery. - Lovenox for DVT prophylaxis. FEN/Renal: -Renal function and electrolytes stable. - Replace per BMT replacement protocol, she is high goal replacement - Malnourished. Dietary consult. No edema. Consider PEG tube for feeding. ID: Prophylasis: PenVK, Acyclovir, pentamidine Fungus high on diff dx, add oral anti-fungal and anti-toxo tx. All PO and can be given OP. GI:Tolerating regular diet Endo:BG management by endocrine, on long and short acting insulin. Also hypothyroid on Synthroid Psych:Low dose klonopin and trazodone at bedtime. Somewhat more motivated, pt states that she is depressed. GvHD Staging/Grading: Chronic GvHD presentoral lichen planus. 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 Activity as Tolerated It is important to keep increasing your activity level after you leave the hospital. Moving around can help prevent blood clots, lung infection (pneumonia ) and other problems. Gradually increasing the number of times you are up moving around will help you return to your normal activity level more quickly. Continue to increase the number of times you are up to the chair and walking daily to return to your normal activity level. Begin to work toward your normal activity level at discharge Report These Signs and Symptoms You must live within 30 minutes of [facility] and have a resident care manager rn 24 hours a day for the first 100 days Call immediately for: Fever >=100.5 Call with new onset of body rash, nausea, vomiting, diarrhea, shortness of air, blood in urine or stool, feel of heart racing, fainting, confusion, fall with injury or with any other problems Call with bleeding or leakage of trifusion catheter Avoid sun exposure as increases your risk of GvHD Meticulous and frequent handwashing to prevent infection. Avoid shaking hands Avoid lawn care or gardening NO SMOKING Please refer to your BMT manual for additional instructions Questions About Your Stay For questions or concerns regarding your hospital stay: - DURING BUSINESS HOURS (8:00 AM - 4:30 PM): Call [phone] and asked to be transferred to your discharge attending physician. - AFTER BUSINESS HOURS (4:30 PM - 8:00 AM, on weekends, or holidays): Call [phone] and ask the rubber covering machine operator to page the on-call doctor for the discharge attending physician. Discharging attending physician: EDWARD MCALLISTER [[id number]] Current Discharge Medication List START taking these medications Details cyclopentolate (CYCLODRYL) 1 % ophthalmic solution Apply 1 Drop to left eye as directed three times daily. Qty: 2 mL, Refills: 0 PRESCRIPTION TYPE: Normal leucovorin 25 mg tab Take 1 Tab by mouth daily. Qty: 30 Tab, Refills: 3 PRESCRIPTION TYPE: Normal posaconazole EC (NOXAFIL) 100 mg tablet Take 4 Tabs by mouth daily with breakfast. Qty: 112 Tab, Refills: 3 PRESCRIPTION TYPE: Normal prednisolone acetate (PRED FORTE) 1 % ophthalmic suspension Apply 1 Drop to left eye as directed four times daily. Qty: 5 mL, Refills: 0 PRESCRIPTION TYPE: Normal pyrimethamine (DARAPRIM) 25 mg tablet Take 2 Tabs by mouth daily. Qty: 60 Tab, Refills: 3 PRESCRIPTION TYPE: Normal sulfADIAZINE 500 mg tablet Take 2 Tabs by mouth four times daily. Qty: 240 Tab, Refills: 3 PRESCRIPTION TYPE: Normal CONTINUE these medications which have been CHANGED or REFILLED Details insulin glargine (LANTUS SOLOSTAR) 100 unit/mL (3 mL) injection PEN Inject 10 Units under the skin at bedtime daily. Qty: 3 Package, Refills: 3 PRESCRIPTION TYPE: No Print CONTINUE these medications which have NOT CHANGED Details acetaminophen (TYLENOL) 325 mg tablet Take 2 Tabs by mouth every 4 hours as needed. Refills: 0 PRESCRIPTION TYPE: OTC acyclovir (ZOVIRAX) 800 mg tablet Take 1 Tab by mouth twice daily. Qty: 60 Tab, Refills: 5 PRESCRIPTION TYPE: Normal Associated Diagnoses: 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remission (HCC) albuterol (VENTOLIN HFA, PROAIR HFA, PROVENTIL HFA) 90 mcg/actuation inhaler Inhale 2 Puffs by mouth into the lungs every 4 hours as needed for Wheezing or Shortness of Breath. Shake well before use. Qty: 3 Inhaler, Refills: 3 PRESCRIPTION TYPE: Normal bacitracin 500 unit/g topical ointment Apply to left face laceration. Qty: 14 g, Refills: 0 PRESCRIPTION TYPE: Print benzonatate (TESSALON PERLES) 100 mg capsule Take 1 Cap by mouth three times daily as needed for Cough. Qty: 20 Cap, Refills: 0 PRESCRIPTION TYPE: Normal blood sugar diagnostic (ONETOUCH VERIO) test strip 1 Strip before meals and at bedtime. Qty: 100 Strip, Refills: 6 PRESCRIPTION TYPE: Normal Blood-Glucose Meter misc One Touch Verio meter Qty: 1 Each, Refills: 0 PRESCRIPTION TYPE: Normal brimonidine (ALPHAGAN P) 0.15 % ophthalmic solution Apply 1 Drop to left eye as directed three times daily. Qty: 5 mL, Refills: 0 PRESCRIPTION TYPE: Print carboxymethylcellulose (REFRESH PLUS) 0.5 % dpet Apply 1 Drop to both eyes four times daily. Qty: 50 Each, Refills: 4 PRESCRIPTION TYPE: Normal clonazePAM (KLONOPIN) 0.5 mg tablet Take 0.5 Tabs by mouth at bedtime daily. Qty: 60 Tab, Refills: 5 PRESCRIPTION TYPE: Print dorzolamide-timolol(+) (COSOPT) 2-0.5 % ophthalmic solution Apply 1 Drop to left eye as directed three times daily. Qty: 10 mL, Refills: 0 PRESCRIPTION TYPE: Print ergocalciferol (VITAMIN D-2) 50,000 unit capsule Take 1 Cap by mouth every 7 days. Qty: 12 Cap, Refills: 0 PRESCRIPTION TYPE: Normal Associated Diagnoses: 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HCC) ferrous sulfate (FEOSOL, FEROSUL) 325 mg (65 mg iron) tablet Take 1 Tab by mouth three times daily with meals for 30 days. Take on an empty stomach at least 1 hour before or 2 hours after food. Qty: 90 Tab, Refills: 0 PRESCRIPTION TYPE: Print insulin aspart (NOVOLOG FLEXPEN) 100 unit/mL injection PEN Inject 3 Units under the skin three times daily with meals. Qty: 3 Package, Refills: 3 PRESCRIPTION TYPE: Normal Insulin [place] (Disposable) 31 gauge x 1/4" ndle Use as needed for insulin administration Qty: 100 Each, Refills: 6 PRESCRIPTION TYPE: Normal lancets (ACCU-CHEK FASTCLIX) MISC To check blood sugars before meals and at bed time. Qty: 100 Each, Refills: 3 PRESCRIPTION TYPE: Normal levothyroxine (SYNTHROID) 50 mcg tablet Take 1 Tab by mouth daily 30 minutes before breakfast. Qty: 90 Tab, Refills: 3 PRESCRIPTION TYPE: Print magnesium oxide (MAG-OX) 400 mg tablet Take 1 Tab by mouth twice daily. Qty: 180 Tab, Refills: 3 PRESCRIPTION TYPE: Normal melatonin 3 mg tab Take 1 Tab by mouth at bedtime daily for 60 days. Qty: 60 Tab, Refills: 0 PRESCRIPTION TYPE: Print mineral oil/white petrolatum (ABSORBASE) oint apply to hands and affected areas as needed PRESCRIPTION TYPE: No Print opakqawk-qlxluuikn-yydrguwkedlco (MAXITROL) 3.5 mg/g-10,000 unit/g-0.1 % ophthalmic ointment Apply 1 cm to left eye as directed twice daily. Qty: 3.5 g, Refills: 2 PRESCRIPTION TYPE: Normal Associated Diagnoses: Panuveitis of left eye penicillin V potassium (VEETID) 250 mg tablet Take 3 tabs by mouth twice daily. Qty: 180 Tab, Refills: 3 PRESCRIPTION TYPE: Normal pentamidine (NEBUPENT) 300 mg/6 mL nebulizer solution Inhale 6 mL by mouth into the lungs every 30 days. Last 03/05 PRESCRIPTION TYPE: Historical Med polyethylene glycol 3350 (MIRALAX) 17 g packet Take 1 Packet by mouth daily for 30 days. Qty: 30 Packet, Refills: 0 PRESCRIPTION TYPE: OTC propranolol (INDERAL) 20 mg tablet Take 1 Tab by mouth three times daily for 30 days. Qty: 90 Tab, Refills: 0 PRESCRIPTION TYPE: Print senna/docusate (SENOKOT-S) 8.6/50 mg tablet Take 1 Tab by mouth twice daily for 30 days. Qty: 60 Tab, Refills: 0 PRESCRIPTION TYPE: OTC The following medications were removed from your list. This list includes medications discontinued this stay and those removed from your prior med list in our system cholecalciferol (VITAMIN D-3) 400 unit tab enoxaparin (LOVENOX) 40 mg injection syringe guaiFENesin (ROBITUSSIN) 100 mg/5 mL oral solution oxyCODONE (ROXICODONE, OXY-IR) 5 mg tablet traZODone (DESYREL) 50 mg tablet Scheduled appointments: May 06, 2017 1:30 PM CDT Office Visit with Philomena Parry MD [facility] - Neurosurgery (--) [address] [facility] Med Office [facility] 2nd Floor Pod B [facility] [id number] May 06, 2017 2:00 PM CDT Office Visit with Asha Henry MD [facility] - Rehabilitation Medicine (--) [address] [facility] Office [facility] 2nd Flr Pod B [facility] [id number] May 10, 2017 8:10 AM CDT Office Visit with Shane Sam MD [facility] - Orthopedics (--) [address] [facility] Orthopedics [facility] 1st And 2nd Floor [facility] [address] May 13, 2017 11:30 AM CDT (Arrive by 11:15 AM) Treatment 01 Hour with TX 1 CHAIR [facility] - BMT Treatment (--) [address] [address] May 13, 2017 12:10 PM CDT (Arrive by 11:55 AM) Md-Return Visit-Allo with Annalee Virk MD [facility] - BMT Exam (--) [address] [address] Jul 09, 2017 10:00 AM CDT BONE DENSITY EVAL with IM BONE DENSITY SCHED [facility] - Internal Medicine (P Internal Medicine) 5th Floor Pod A [address] [facility] Med Office [facility] [address] Jul 09, 2017 10:20 AM CDT Return Patient with Miriam Conti MD [facility] - Internal Medicine (P Internal Medicine) 5th Floor Pod A [address] [facility] Med Office [facility] [address] Pending items needing follow up: - Patient will RTC on 8/3 for labs/MD - Plan to repeat MRI in 2 weeks (week of 05/25-06/04) - Will FU with Ophth on 05/12 or 05/13 depending when they can schedule for vitreous biopsy Signed: Claudine Mendoza APRN 05/06/2017 ATTESTATION I personally performed the omalley portions of the E/M visit, discussed case with Nurse Practitioner and concur with documentation of history, physical exam, assessment, and treatment plan unless otherwise noted. Staff name: Edward Mcallister, Date: 05/06/2017 cc: Primary Care Physician: Ghada No PCP Verified Referring physicians: Vale Addison MD Additional provider(s): in this encounter Discharge Instructions * Discharge Instr - Case Management - Kylie Thompson RN - 05/06/2017 12:07 PM CDT [email or web address] . [facility] will have the nurse visit you on Wednesday, May 08 and the physical therapist on May 10. [email or web address] quiana que la enfermera lo visite el sbado y el fisioterapeuta el lunes . * Patient Instructions - Yong Curtis RN - 05/03/2017 7:25 AM CDT INTERVENTIONAL RADIOLOGY DISCHARGE INSTRUCTIONS LUMBAR PUNCTURE A lumbar puncture is a procedure in which a needle is carefully inserted into the spinal canal in the lower portion of your back (the lumbar area). A small amount of cerebrospinal fluid (CSF) is collected followed by removal of the needle. CSF is a clear fluid that surrounds the brain and spinal cord and helps protect them from injury. The collected fluid is then used for specific lab tests ordered by your physician. In some instances, the pressure of the CSF may also be measured during the procedure. POST-PROCEDURE ACTIVITY: A responsible adult must drive you home. If you receive sedation or anesthesia for the procedure, you should not drive or operate heavy machinery or do anything that requires concentration for at least 24 hours after receiving sedation or anesthesia. It is recommended that a responsible adult be with you until morning. You should rest for 6-8 hours after the procedure with your head at about a 30-45?angle. If you develop a spinal headache, lie flat for 6-8 hours. A spinal headache is caused by a CSF leak; you would typically have greater pain when you are up and less pain when lying flat. You may plan to resume normal activity tomorrow. POST-PROCEDURE SITE CARE: You will have a small bandage over the site. Keep this dry. You may remove it in 24 hours. You may shower in 24 hours, after removing the bandage. Do not submerge the site underwater for several days until fully healed (no tub bath, swimming/hot tub, etc.) Be sure your hands are clean when touching near the site. Do not use ointments, creams or powders on the puncture site. DIET/MEDICATIONS: You may resume your previous diet after the procedure. If you receive sedation or narcotic pain medications, avoid any foods or beverages containing alcohol for at least 24 hours after the procedure. Please see the Medication Reconciliation sheet for instructions regarding resuming your home medications. Keep well-hydrated; you are encouraged to drink plenty of caffeinated fluids as this can help to prevent a spinal headache. CALL THE DOCTOR IF: Bright red blood has soaked the bandage. You have pain not relieved by medication. Some soreness at the site is to be expected. You have signs of infection such as: Chills, body aches, fever greater than 101F, redness, swelling or warmth at the puncture site. You have an uncontrolled headache. For problems or concerns related to the procedure, call [phone] from 7am- 5pm, Wednesday-Wednesday. After-hours and weekends, please call [phone] and ask for the Interventional Order Booker on-call. For procedures performed at the [facility], please call the Radiology dept. [phone], Wednesday-Wednesday, 8am-5pm in this encounter Medications at Time of Discharge Medication Sig. Disp. Refills Start Date End Date acetaminophen (TYLENOL) Take 2 Tabs by mouth 0 04/27/2017 325 mg tablet every 4 hours as needed. acyclovir (ZOVIRAX) 800 Take 1 Tab by mouth twice 60 Tab 5 04/05/2017 mg tabletIndications: daily. 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remission (HCC) Blood-Glucose Meter [facility] One Touch Verio meter 1 Each 0 [...] hour before or 2 hours after food. insulin aspart (NOVOLOG Inject 3 Units under the 3 Package 3 201606/09/2017 FLEXPEN) 100 unit/mL skin three times daily injection PEN with meals. insulin glargine (LANTUS Inject 10 Units under the 3 Package 3 201606/09/2017 SOLOSTAR) 100 unit/mL (3 skin at bedtime daily. mL) injection PEN Insulin [place] Use as needed for insulin 100 Each [...] petrolatum (ABSORBASE) affected areas as needed oint vgoqpznx-kswszymul-lwhgmo Apply 1 cm to left eye as [...] as of this encounter Progress Notes * Namita Fatima RN - 05/06/2017 3:00 PM CDT Donna Wilde discharged on 05/06/2017. . Discharge instructions reviewed with patient and family. Valuables returned: . Home medications: . Functional assessment at discharge complete: Yes . * Arianna Walker RD - 05/06/2017 12:41 PM CDT CLINICAL NUTRITION Clinical Nutrition Follow-Up Summary Nutrition Assessment of Patient: Malnutrition Assessment: Malnutrition present Malnutrition Context: ICD-10 code E43: Chronic illness/Severe malnutrition Estimated Calorie Needs: 1740 (30kcal/kg admit wt) Estimated Protein Needs: 71-89 (1.2-1.5g/kg ) Oral Diet Order: Neutropenic 61 yo female with a PMH that includes DM (last HbA1c 6.2% on 02/26/17),HTN HLD, and CMML that transformed into AML and treated followed by allogeneic stem cell transplant in February 2016 with recent admit to SICU 04/16/17 for tSAH, R cerebellar stroke, T11 fracture, L intertrochanteric fracture s/p fall from standing. On prior admit she required EN via [employer] for nutrition due to altered mental status and dysphasia. She has since been cleared by speech for regular consistencies. Now admit for brain lesions identified on MRI. PO intake appears to be gradually improving. Per patient and spouse early satiety and not liking hospital foods have limited intakes. Patient has supplemented with boost in the past and was agreeable to receiving with meals to help meet nutrition needs. Goal of at least 2 boost/day in addition to meals was discussed. Per EMR she has had weight fluctuations between 145-120# over the past year, with present weight of 121# and no edema noted. Severe muscle wasting apparent in b/l extremities. Patient meets severe chronic illness malnutrition criteria. Spoke with patient via interpreter and translator [place]. She is planned to discharge home today. She has been working to increase intake with small meals and boost, milk or protein shakes between. Case of boost provided to patient today via nutrition assistance fund. Recommendation: Continue current diet as tolerated. Encourage good intake of all meals starting with protein dense foods. Encourage minimum of 2 boost daily in addition to meals as tolerated. Dietitians available in clinic if further nutrition questions or concerns arise Intervention / Plan: Encouraged continued good PO efforts with small/frequent meals, snacks and boost Provided case of boost for home via nutrition assistance fund Nutrition Diagnosis: Nutrition Diagnosis: Malnutrition Etiology: chronic illness, early satiety Signs & Symptoms: muscle wasting, patient/spouse reported diet history Goals: Patient to consume >75% of meals/supplements Time Frame: Within 72 Hours Arianna Walker MS, RD, LD *[id number] * Namita Fatima RN - 05/06/2017 12:00 PM CDT Spoke with RAHAT Chow, about patient large watery stool despite holding miralax and senna. Order for imodium x1 dose pre-discharge and to send a c-diff sample as previous patient stool were very soft and multiple per day. * Edward Mcallister DO - 05/06/2017 9:32 AM CDT Formatting of this note may be different from the original. 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 - 03/05/2017: BMBX in CR both by morphology and by Flow, cytogenetics 46 XX, no abnormalities - Chimerism 03/05/2017: is 100% donor donor DISC INSPECTOR: - MRINew brain lesion on MRI 04/29: concerning for infection or malignancy. "Enhancing nodular medial right cerebellar lesion and numerous additional smaller enhancing juxtacortical bilateral cerebral, basal nuclei, and brainstem lesions with mild associated multifocal vasogenic edema likely reflecting leukemia. Opportunistic intracranial infection could appear similar. - No prior history of DISC INSPECTOR malignancy. LP 04/12/17 did not show evidence of leukemia. Plan: 1. CT scans chest abdomen and pelvis: Mild cardiomegaly, borderline vascular congestion patchy groundglass opacity suggesting volume overload. Atypical infectious etiology considered less likely. Abdomen: Interval ORIF of left intertrochanteric and trochanteric fractures with persistent surrounding soft tissue stranding. Mild splenomegaly. Persistent trace dependent pelvic ascites. 2. CT Sinus : Bx cult, stains, histo-path neg to date. 3. Ophthalmology consultation cont current meds, add pred L eye and cyclopentoate L eye 4. ID recommendations noted/ appreciated- toxoplasma IgG positive. Aspergillus negative, Other tests awaited. 5. Neurosurgery consultation noted/ appreciated: No plans for biopsy at this time. 6. LP 05/03/2017, unrevealing to date 7. Obtained blood cultures, NGTD 7. Plan to cont anti-toxo and fungal tx. MRI scan in 2 weeks to assess DISC INSPECTOR lesions. 3. Neuro/MSK: Traumatic Subarachnoid hemorrhage and infra orbital bleed L. -s/p fall at home with + LOC -CT head 04/16: Moderate subarachnoid hemorrhage scattered throughout the bilateral hemispheric sulci >decreased propranolol to 15mg TID for neuro storming, will wean as tolerated Musculoskeletal/ Orthopedic Injuries- -T11 compression fractureduring her fall that has remained stable during this admission -displaced left intertrochanteric femur fractureand required surgery on 2016 for stabilization -Currently WBAT for LLE. -Working with PT/OT, planning possible dsch to home today. Cleared by PT/OT 4. Pain control: On Ultram, avoid narcotics. 5. Eyes: - Panuveitis and NAOIN, vision loss, left eye - Continue brimonidine and maxitrol - She has no light perception in the left eye, since early 03/2017 - Ophthalmology opinion as above, will arrange OP f/u Heme: - Anemia and thrombocytopenia, stable. Thrombocytopenia improving since orthopedic surgery. - Lovenox for DVT prophylaxis. FEN/Renal: - Renal function and electrolytes stable. - Replace per BMT replacement protocol, she is high goal replacement - Malnourished. Dietary consult. No edema. Consider PEG tube for feeding. ID: Prophylasis: PenVK, Acyclovir, pentamidine Fungus high on diff dx, add oral anti-fungal and anti-toxo tx. All PO and can be given OP. GI: Tolerating regular diet Endo: BG management by endocrine, on long and short acting insulin. Also hypothyroid on Synthroid Psych: Low dose klonopin and trazodone at bedtime. Somewhat more motivated, pt states that she is depressed. GvHD Staging/Grading: Chronic GvHD present oral lichen planus. Subjective: Donna Wilde is a 61 y.o. female Headaches decreased. Cannot see from L eye. Review of Systems: Constitutional: fatigue, malaise, no fevers HENT: Bruising on left half of face, improving, No congestion, dental problem, ear discharge. Ear pain, tinnitus, facial swelling, mouth sores, postnasal discharge, rhinorrhea, sinus pressure, sore throat, trouble swallowing, or voice change Eyes: Decreased vision/ loss of vision left eye, No eye discharge, redness, pain , photophobia CVS: No chest pain, edema, or palpitations Respiratory: No shortness of breath, wheezing, cough, hemoptysis, or chest tightness Abdomen: No abdominal pain, distension, blood in stool, hematemesis, nausea, vomiting, diarrhea, constipation, or rectal pain : No dysuria, flank pain, frequency, hematuria, urgency MSK: Pain left lower extremity, no back pain, joint swelling, myalgias, neck pain or stiffness Endocrine: No cold/ heat intolerance, polyuria, polydipsia, or polyphagia asthenia Dermatology: Bruising left side of face, No pallor, rash, wound, or color changes Neurology: no headaches, no dizziness, seizures, speech difficulty, weakness, tremors, light headedness, or syncope. Hematologic: No swelling, or adenopathy Psych: increased sleepiness, no behavior problem, confusion, mood changes, hallucinations, nervous/ anxiety, or suicidal ideation. Objective: Medications: Scheduled Meds: acyclovir (ZOVIRAX) tablet 800 mg 800 mg Oral BID brimonidine (ALPHAGAN P) 0.15 % ophthalmic solution 1 Drop 1 Drop Left Eye TID carboxymethylcellulose (REFRESH PLUS) 0.5 % ophthalmic solution 1 Drop 1 Drop Both Eyes QID clonazePAM (KLONOPIN) tablet 0.25 mg 0.25 mg Oral QHS cyclopentolate (CYCLODRYL) 1 % ophthalmic solution 1 Drop 1 Drop Left Eye TID ergocalciferol (VITAMIN D-2) capsule 50,000 Units 50,000 Units Oral Q7 Days insulin aspart (NOVOLOG FLEXPEN) injection PEN 0-14 Units 0-14 Units Subcutaneous ACHS insulin glargine (LANTUS SOLOSTAR) injection PEN 10 Units 10 Units Subcutaneous QHS leucovorin tablet 25 mg 25 mg Oral QDAY levothyroxine (SYNTHROID) tablet 50 mcg 50 mcg Oral QDAY 30 min before breakfast melatonin tablet 3 mg 3 mg Oral QHS neomycin/polymyxin/dexamethasone (MAXITROL) ophthalmic suspension 1 Drop 1 Drop Left Eye BID penicillin V potassium (VEETID) tablet 750 mg 750 mg Oral BID pentamidine (NEBUPENT) nebulizer solution 300 mg 300 mg Inhalation Q28 Days polyethylene glycol 3350 (MIRALAX) packet 17 g 17 g Oral QDAY posaconazole EC (NOXAFIL) tablet 400 mg 400 mg Oral QDAY w/breakfast prednisolone acetate (PRED FORTE) 1 % ophthalmic suspension 1 Drop 1 Drop Left Eye QID propranolol (INDERAL) tablet 20 mg 20 mg Oral TID pyrimethamine (DARAPRIM) tablet 50 mg 50 mg Oral QDAY senna/docusate (SENOKOT-S) tablet 1 Tab 1 Tab Oral BID sulfADIAZINE tablet 1,000 mg 1,000 mg Oral QID traZODone (DESYREL) tablet 25 mg 25 mg Oral QHS Continuous Infusions: sodium chloride 0.9 % infusion 20 mL/hr at 05/03/17 1301 sodium chloride 0.9 % infusion 75 mL/hr at 05/05/17 2116 PRN and Respiratory Meds:acetaminophen Q4H PRN, alteplase PRN (Mixing Plant Operator from Rx) , amitriptyline/gabapentin/emu oil(#) Q8H PRN, benzonatate TID PRN, fentaNYL citrate PF Q2H PRN, magnesium sulfate 4 g/50 mL PRN, mineral oil/white petrolatum TID PRN, potassium chloride PRN (Mixing Plant Operator from Rx), prochlorperazine Q6H PRN OR prochlorperazine Q6H PRN, traMADol Q6H PRN Vital Signs: Last Filed Vital Signs: 24 Hour Range BP: 146/63 (05/06 836) Temp: 36.8 C (98.2 F) (05/06 836) Pulse: 61 (05/06 836) Respirations: 16 PER MINUTE (05/06 836) SpO2: 98 % (05/06 836) O2 Delivery: None (Room Air) (05/06 836) BP: (117-146)/(52-63) Temp: [36.7 C (98 F)-36.8 C (98.3 F)] Pulse: [60-66] Respirations: [16 PER MINUTE-18 PER MINUTE] SpO2: [98 %-100 %] O2 Delivery: None (Room Air) Intensity Pain Scale 0-10 (Pain 1): (not recorded) Vitals: 05/04/17 0324 05/05/17 0343 05/06/17 0329 Weight: 58.8 kg (129 lb 10.1 oz) 56.8 kg (125 lb 3.5 oz) 55.2 kg (121 lb 9.6 oz ) Intake/Output Summary: (Last 24 hours) Intake/Output Summary (Last 24 hours) at 05/06/17 0932 Last data filed at 05/06/17 0629 Gross per 24 hour Intake 2079 ml Output 300 ml Net 1779 ml Physical Exam: Performance Status (Karnofsky): 50% Requires considerable assistance and frequent medical care General: Cachectic, in bed, weak. Flat affect. Head: Normocephalic, without obvious abnormality, atraumatic, large bruising left side of face. Eyes: Conjunctivae/corneas clear. Anisocoria. Loss of vision left eye Throat: Lips, mucosa and tongue normal. Teeth and gums normal Neck: Supple, symmetrical, trachea midline, no adenopathy Lungs: basilar rales bilat Heart: Regular rate and rhythm, S1, S2 normal, no murmur, click rub or gallop Abdomen: Soft, non-tender. Bowel sounds normal. No masses. No organomegaly. Extremities: Recently operated left lower extremity, decreased movements, no swelling or deformity, no cyanosis or trace edema both LE. Skin: Skin color, texture, turgor normal. No rashes or lesions Musculoskeletal: Recently operated left lower extremity, decreased movements, no swelling or deformity Psych: Normal Ventilator/Respiratory Support: none Lab Review: CBC w/Diff Lab Results Component Value Date/Time WBC 3.0 (L) 05/06/2017 05:17 AM RBC 2.20 (L) 05/06/2017 05:17 AM HGB 8.2 (L) 05/06/2017 05:17 AM HCT 23.2 (L) 05/06/2017 05:17 AM MCV 105.2 (H) 05/06/2017 05:17 AM MCH 37.2 (H) 05/06/2017 05:17 AM MCHC 35.4 05/06/2017 05:17 AM RDW 19.8 (H) 05/06/2017 05:17 AM PLTCT 86 (L) 05/06/2017 05:17 AM MPV 6.5 (L) 05/06/2017 05:17 AM Lab Results Component Value Date/Time NEUT 41 05/06/2017 05:17 AM ANC 1.20 (L) 05/06/2017 05:17 AM LYMA 43 05/06/2017 05:17 AM ALC 1.30 05/06/2017 05:17 AM BRUCE 13 (H) 05/06/2017 05:17 AM AMC 0.40 05/06/2017 05:17 AM EOSA 3 05/06/2017 05:17 AM AEC 0.10 05/06/2017 05:17 AM BASA 0 05/06/2017 05:17 AM ABC 0.00 05/06/2017 05:17 AM Comprehensive Metabolic Profile Lab Results Component Value Date/Time NA 133 (L) 05/06/2017 05:17 AM K 4.1 05/06/2017 05:17 AM CL 108 05/06/2017 05:17 AM CO2 20 (L) 05/06/2017 05:17 AM GAP 5 05/06/2017 05:17 AM BUN 12 05/06/2017 05:17 AM CR 0.96 05/06/2017 05:17 AM GLU 128 (H) 05/06/2017 05:17 AM Lab Results Component Value Date/Time CA 9.8 05/06/2017 05:17 AM PO4 3.9 05/04/2017 06:46 AM ALBUMIN 2.6 (L) 05/04/2017 06:46 AM TOTPROT 5.2 (L) 05/04/2017 06:46 AM ALKPHOS 180 (H) 05/04/2017 06:46 AM AST 30 05/04/2017 06:46 AM ALT 13 05/04/2017 06:46 AM TOTBILI 0.6 05/04/2017 06:46 AM GFR 59 (L) 05/06/2017 05:17 AM GFRAA >60 05/06/2017 05:17 AM Point of Care Testing: (Last 24 hours): Glucose: (!) 128 (05/06/17 0517) POC Glucose (Download): (!) 125 (05/06/17 0835) Radiology Review: Pertinent radiology reviewed. * Bryan Tucker, PT - 05/06/2017 8:45 AM CDT PHYSICAL THERAPY PROGRESS NOTE MOBILITY: Mobility Progressive Mobility Level: Walk in room Distance Walked (feet): 40 ft Level of Assistance: Assist X1 Assistive Device: Walker Time Tolerated: 11-30 minutes Activity Limited By: Fatigue SUBJECTIVE: Subjective Significant hospital events: 61 year old female with a past medical history of HTN, HLD, DM, hypothyroidism and AML. Patient was transferred to [facility] from an outside hospital on 04-16-2017 after sustaining a fall at home hitting her head and having a positive loss of consciousness. Patient was found to have a suffered subsequent subarachnoid hemorrhage, possible right cerebellar stroke ( which after further imaging has not been shown to be vasogenic edema surrounding cerebellar lesions - see below), T1 compression fracture and a left femur fracture. Patient is status post a cephalomedullary nailing on 04-19-2017. Patient was discharged from hospital to rehab facility but was quickly re- admitted to after new areas found in brain MRI on 04/29. PT ordered to assist with mobility while on acute unit. Mental / Cognitive Status: Alert;Oriented;Cooperative Persons Present: Son Pain: Patient does not rate pain Pain Location: Left;Hip Pain Interventions: Patient agrees to participate in therapy Comments: Patient resting in bed upon entering room. Patient states she is doing well. Per BMT team, patient may actually go home today. LE Precautions: LLE WBAT: Weight Bearing as Tolerated Ambulation Assist: Independent Mobility at Household Level with Device Patient Owned Equipment: Roller Walker;Manual Wheelchair;Single Point Cane Home Situation: Lives with Family Type of Home: House Entry Stairs: Ramp In-Home Stairs: No Stairs BED MOBILITY/TRANSFERS: Bed Mobility/Transfers Bed Mobility: Rolling: Modified Independent;Use of Rail Bed Mobility: Sit to Supine: Minimal Assist;Assist with Trunk Transfer Type: Sit to Stand Transfer: Assistance Level: From;Bed;Minimal Assist Transfer: Assistive Device: Roller Walker Transfers: Type Of Assistance: Verbal Cues;For Safety Considerations Other Transfer Type: Stand to Sit Other Transfer: Assistance Level: To;Bed Side Chair;Minimal Assist Other Transfer: Assistive Device: Roller Walker Other Transfer: Type Of Assistance: Verbal Cues;For Safety Considerations End Of Activity Status: Up in Chair;Nursing Notified;Instructed Patient to Use Call Light GAIT: Gait Gait Distance: 40 feet Gait: Assistance Level: Minimal Assist;Management of Lines;Safety Considerations Gait: Assistive Device: Roller Walker Gait: Descriptors: Pace: Slow;Step-To Gait;No balance loss;Decreased step length EDUCATION: Education Persons Educated: Patient/Family Patient Barriers To Learning: Language Barrier Interventions: Family Education;Repetition of Instructions Teaching Methods: Verbal Instruction Patient Response: Verbalized Understanding Topics: Plan/Goals of PT Interventions;Use of Assistive Device/Orthosis; Mobility Progression;Exercise Program;Safety Awareness;Up with Assist Only; Importance of Increasing Activity Comments: PT educated son on importance of being in close contact with patient at all times during transfers until she regains her strength. ASSESSMENT/PROGRESS: Assessment/Progress Impaired Mobility Due To: Decreased Strength;Pain Assessment/Progress: Should Improve w/ Continued PT Comments: Patient with improved ambulation distance today but still requires minimal assist for steadying. Family will need to be present with all mobility while at home which they state they will be. Patient can continue to progress at home with family and home health. While patient would benefit from further acute therapy, it may be in patient's best interest to be able to be at home with her family at this time. GOALS: Goals Goal Formulation: With Patient Time For Goal Achievement: 7 days Pt Will Go Supine To/From Sit: w/ Stand By Assist Pt Will Transfer Bed/Chair: w/ Minimal Assist Pt Will Transfer Sit to Stand: w/ Minimal Assist Pt Will Ambulate: 31-50 Feet, w/ Walker, w/ Minimal Assist PLAN: Plan Treatment Interventions: Mobility Training;Strengthening;Balance Activities; Coordination Training;Endurance Training Plan Frequency: 5 Days per Week Comments: If patient does not discharge today, will attempt to see patient Wednesday as well to increase ambulation distance. RECOMMENDATIONS: PT Discharge Recommendations PT Discharge Recommendations: Home Health Setting;to address deficits, maximize function and improve safety Equipment Recommendations: Patient owns necessary equipment Therapist: Bryan Tucker DPT Date: 05/06/2017 * Parisa Milian MD - 05/06/2017 8:39 AM CDT Formatting of this note may be different from the original. Infectious Disease Progress Note Name: Donna Taveras Andry Today's Date: 05/06/2017 Assessment: Right cerebellar enhancing lesion and numerous smaller [...] done by IR on 04/12 with 11 WBC, 94% lymphocytes, protein 68, glucose 70 - Toxoplasma CSF PCR negative 04/12 - CSF culture negative 04/12 - Crypto serum Ag negative 04/20 - Galactomannan negative 04/19 - Fungitell negative 04/19 - Histo, crypto, coccidioides workup negative 04/20 - 04/18 staph epidermidis + blood culture, contaminant - Workup this admission: - Toxoplasma IgG positive 05/01 - Cryptococcal serum Ag negative 05/01 - Fungitell negative 05/01 - Galactomannan 05/01 [...] s/p HSCT 02/2016 Hx GVHD Hx pancytopenia Recommendations: - Do not feel CoNS culture from biopsy is significant - Noted toxoplasma IgG positive - Cont sulfadiazine 1000mg PO four times daily, pyrimethamine, leucovorin 25mg daily -Repeat MRI sometime between 05/25-06/04/17 to re-eval cerebellar lesion - Follow up pending studies: histo serum ag (negative during previous admission) , blood cultures, fungal blood cultures Will follow. Mrs. Wilde has complex disease requiring complex medical decision making for sinus mass, brain lesions, immunosuppresison. I reviewed the chart and interviewed and examined the patient and formulated the plan as above. Discussed with Dr. Mcallister. Parisa Milian MD Infectious Diseases Faculty Pager: [phone] Interval History Donna Wilde is a 61 y.o. 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 Hx of GVHD , off steroids since 11/2016. Recent admission with fall, subarachnoid hemorrhage , left hip fracture, and fever. Recent hx panuveitis, suspicious for infection. Now with enhancing lesions in the R cerebellum and scattered intracranial and maxillary/orbital lesions as well. Consulted for further workup. Afebrile, VSS. In chair. Gets up with assistance. No f/c/ns, cough, SOB, abd pain. No new vision changes. No sig changes. Not taking much PO. Son in room. prob discharging today. Antimicrobial Start date End date Acyclovir prophylaxis 04/30 Penicillin V prophylaxis 04/30 Pentamidine prophylaxis To be given 05/05 Pyramethamine, sulfdiazine 05/04/17 Estimated Creatinine Clearance: 54.3 mL/min (based on Cr of 0.96). Medications Scheduled Meds: acyclovir (ZOVIRAX) tablet 800 mg 800 mg Oral BID brimonidine (ALPHAGAN P) 0.15 % ophthalmic solution 1 Drop 1 Drop Left Eye TID carboxymethylcellulose (REFRESH PLUS) 0.5 % ophthalmic solution 1 Drop 1 Drop Both Eyes QID clonazePAM (KLONOPIN) tablet 0.25 mg 0.25 mg Oral QHS cyclopentolate (CYCLODRYL) 1 % ophthalmic solution 1 Drop 1 Drop Left Eye TID ergocalciferol (VITAMIN D-2) capsule 50,000 Units 50,000 Units Oral Q7 Days insulin aspart (NOVOLOG FLEXPEN) injection PEN 0-14 Units 0-14 Units Subcutaneous ACHS insulin glargine (LANTUS SOLOSTAR) injection PEN 10 Units 10 Units Subcutaneous QHS leucovorin tablet 25 mg 25 mg Oral QDAY levothyroxine (SYNTHROID) tablet 50 mcg 50 mcg Oral QDAY 30 min before breakfast melatonin tablet 3 mg 3 mg Oral QHS neomycin/polymyxin/dexamethasone (MAXITROL) ophthalmic suspension 1 Drop 1 Drop Left Eye BID penicillin V potassium (VEETID) tablet 750 mg 750 mg Oral BID pentamidine (NEBUPENT) nebulizer solution 300 mg 300 mg Inhalation Q28 Days polyethylene glycol 3350 (MIRALAX) packet 17 g 17 g Oral QDAY posaconazole EC (NOXAFIL) tablet 400 mg 400 mg Oral QDAY w/breakfast prednisolone acetate (PRED FORTE) 1 % ophthalmic suspension 1 Drop 1 Drop Left Eye QID propranolol (INDERAL) tablet 20 mg 20 mg Oral TID pyrimethamine (DARAPRIM) tablet 50 mg 50 mg Oral QDAY senna/docusate (SENOKOT-S) tablet 1 Tab 1 Tab Oral BID sulfADIAZINE tablet 1,000 mg 1,000 mg Oral QID traZODone (DESYREL) tablet 25 mg 25 mg Oral QHS Continuous Infusions: sodium chloride 0.9 % infusion 20 mL/hr at 05/03/17 1301 sodium chloride 0.9 % infusion 75 mL/hr at 05/05/17 2116 PRN and Respiratory Meds:acetaminophen Q4H PRN, alteplase PRN (Mixing Plant Operator from Rx) , amitriptyline/gabapentin/emu oil(#) Q8H PRN, benzonatate TID PRN, fentaNYL citrate PF Q2H PRN, magnesium sulfate 4 g/50 mL PRN, mineral oil/white petrolatum TID PRN, potassium chloride PRN (Mixing Plant Operator from Rx), prochlorperazine Q6H PRN OR prochlorperazine Q6H PRN, traMADol Q6H PRN Physical Examination Vital Signs: Last Vital Signs: 24 Hour Range BP: 146/63 (05/06 836) Temp: 36.8 C (98.2 F) (05/06 836) Pulse: 61 (05/06 836) Respirations: 16 PER MINUTE (05/06 836) SpO2: 98 % (05/06 836) O2 Delivery: None (Room Air) (05/06 836) BP: (117-146)/(52-63) Temp: [36.7 C (98 F)-36.8 C (98.3 F)] Pulse: [60-66] Respirations: [16 PER MINUTE-18 PER MINUTE] SpO2: [98 %-100 %] O2 Delivery: None (Room Air) General appearance: Alert, oriented. NAD. Appears older than stated age. Thin, frail. HENT: Mucus membranes moist Eyes: Conj nl. Left pupil nonreactive. Neck: Supple, no rigidity Lungs: No wheezing, rhonchi, or crackles appreciated. Nonlabored. Heart: Regular rhythm, reg rate, + systolic murmur unchanged, no peripheral edema Abdomen: Soft, non-tender, non-distended, normoactive bowel sounds Ext: No clubbing, cyanosis or edema Skin: Bruising over the left face resolving. No rashes or jaundice. Laboratory Hematology Recent Labs 05/03/17 0924 05/04/17 0646 05/05/17 04305/06/17 0517 WBC -- 3.7* 3.8* 3.0* HGB -- 8.2* 8.1* 8.2* HCT -- 23.1* 22.7* 23.2* PLTCT -- 102* 94* 86* PTT 28.7 -- -- -- INR 1.0 -- -- -- Chemistry Recent Labs 05/04/17 0646 05/05/17 04305/06/17 0517 NA 135* 136* 133* K 3.8 4.0 4.1 CL 108 109 108 CO2 23 23 20* BUN 16 14 12 CR 0.73 0.85 0.96 GFR >60 >60 59* GLU 77 148* 128* CA 9.3 9.4 9.8 PO4 3.9 -- -- ALBUMIN 2.6* -- -- ALKPHOS 180* -- -- AST 30 -- -- ALT 13 -- -- TOTBILI 0.6 -- -- Microbiology, Radiology and other Diagnostics Review Microbiology reviewed. 05/03 maxillary tissue/swab culture - gram stains with no organisms seen Pertinent radiology viewed. CT c/a/p 04/30: IMPRESSION CHEST: 1. Mild cardiomegaly, borderline vascular congestion patchy groundglass opacity suggesting volume overload. Atypical infectious etiology considered less likely. 2. Calcified coronary artery atherosclerosis right disease ABDOMEN AND PELVIS: 1. Interval ORIF of left intertrochanteric and trochanteric fractures with persistent surrounding soft tissue stranding. 2. Mild splenomegaly. 3. Persistent trace dependent pelvic ascites. CT sinus 04/30: IMPRESSION 1. Right mastoiditis. 2. Mild maxillary sinus disease greater on the left. 3. Small periapical abscess involving left maxillary premolar. 4. Stable enhancing right cerebellar lesion. Parisa Milian MD Pager [phone] * Maddie Talbot RN - 05/06/2017 6:31 AM CDT Shift: 7p-7a NEWS Score: 0,0,0 Pain: Pt not complaining of pain but grimaces while being turned. Pt does not want any medications. Recommending to pretreat with 100mg of tramadol before PT/ OT to help with pain. Nutrition: Neutropenic; poor appetite. Encouraged to increase nutritional intake and fluid intake. GI/: Pt incontinent of bladder. Checking pt brief q2h. No c/o of n/v. Activity: Pt is up w/2 and gait belt. Family: Son at bedside throughout evening. Last Shower: 05/05 New Events or Follow-up: Encourage motivation. Encourage pt to call out when needing to use restroom-pt still incontinent throughout night. Redness starting to occur on inner thigh due to briefs and wiping-using criticaid barrier cream. * Haile Cleary MD - 05/05/2017 6:03 PM CDT Ophthalmology Progress Note - PGY-2 S: Patient was seen and examined. Pt denies any changes in vision, eye pain, flashes, floaters, photophobia or double vision. O: Near [facility]: exam limited by patient's cooperative effort cc: OD: 20/200, PH 20/100 OS: NLP Pupils: 4 mm, 4+ OD, irregular and nonreactive OS, 2+ RAPD by reverse [place]: 15 OD, 14 OS CVF: Full to CF OD, unable OS Motility: Full OU Adnexa: WNL OU Conjunctiva: White/Quiet, palpebral conjunctival pallor OU Cornea: Clear, nasal pterygia OU A/C: Deep OU. Unable to fully assess for inflammation at bedside. Iris: Round/Flat OD. Irregular with posterior synechiae OS. Lens: NS OU Dilated Fundus Exam: (Dilated with 2.5% Phenylephrine and 1% Tropicamide OU. Effects last 4-6 hours ) Optic Nerve: 0.3 p/f/s OD. Unable to assess from vitreous haze OS Macula: Attached and flat OD. Unable OS. Vessels: WNL OD. Unable OS. Vitreous: No stranding or heme OD. Unable OS. Periphery: No breaks or tears OD. Unable OS. Labs/Imaging: Surgical path from biopsy pending A/P: 1. 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 Low vision, left eye - She has no light perception in the left eye, since 03/2017 - Hx of NAOIN - No acute intervention at this time Recommendations: - Continue maxitrol and brimonidine 0.15%, left eye - Start prednisolone acetate 1% QID, left eye (ordered) - Start cyclopentolate 1% TID, left eye (ordered) - Monocular precautions with polycarbonate protective eyewear at all times - Will need a vitreous biopsy with us in clinic on discharge. - We will arrange a follow up. -[phone] If you have any questions, do not hesitate to contact us. Haile Cleary MD Ophthalmology, PGY-2 [phone] [facility] [address] [place] [address] * Namita Fatima, ROSARIO - 05/05/2017 3:13 PM CDT Day Shift: NEWS Score: 0803: 0 1225: 0 1630: 0 Pain: left leg pain intermittently, headache with activity- tramadol given Nutrition: Neutropenic diet, poorly eating GI/: Intermittent incontinence of urine, last BM 05/05 Activity: Up with 1-2, walker, gate belt Family: supportive son at bedside Last Shower: chairbath 05/05 New Events or Follow-up: - planning for possible discharge to home later this week - physician encouraged pt to eat and be active * Teresa Gallegos OT - 05/05/2017 1:45 PM CDT OCCUPATIONAL THERAPY DAILY TREATMENT NOTE Admitting Diagnosis: myeloproliferative neoplasms Brain mass Patient seen x1 this date. Documentation reflects all daily treatment sessions. Mobility Progressive Mobility Level: Walk in room Distance Walked (feet): 25 ft Level of Assistance: Assist X1 Assistive Device: Walker Time Tolerated: 11-30 minutes Activity Limited By: Fatigue;Pain Subjective Pertinent Dx per Physician: 61 y.o. Female with hx DM2, hypothyroidism, HTN, AML in remission s/p SCT 03/02/16, admitted w diffuse tSAH, and right chronic cerebellar stroke and L intertrochanteric fx s/p fall from standing on 04/16/17. S /P L CMN 04/19. Precautions: Isolation LE Precautions: LLE WBAT: Weight Bearing as Tolerated Pain / Complaints: Patient agrees to participate in therapy Pain Location: Left;Leg Pain Level Current: 8 Very severe pain Comments: Patient left supine in bed, all needs within reach and bed alarm in place. Objective Psychosocial Status: Willing and Cooperative to Participate Persons Present: Son Home Living Type of Home: House Home Layout: One Level;Ramped Entrance Bathroom Equipment: Shower Chair Home Equipment: Walker;Cane Prior Function Level Of [place]: Needed assistance with ADLs;Needed assistance with homemaking;Needed assistance with functional transfers (intermittently) Lives With: Spouse Receives Help From: Spouse;Family Vision Comment: L visual impairement with limited acuity in L eye ADL's Where Assessed: Standing at Sink Grooming Assist: Minimal Assist Grooming Deficits: Steadying;Wash/Dry Hands;Setup Functional Transfer Assist: Minimal Assist Functional Transfer Deficits: Steadying Comment: Supine to sit with minimum assistance. Pt transfers with minimum assistance using roller walker for support. Pt ambulates from far side of bed to sink. Requires seated rest break before standing to wash hands. Pt ambulates back to bed at end of session. During ambulation pt requires physical cues to manage roller walker/ safety. Activity Tolerance Endurance: 3/5 Tolerates 25-30 Minutes Exercise w/Multiple Rests Sitting Balance: 3/5 Sits w/o UE Support Up to 30 Seconds Comment: Activity limited by pain. Pt requires less physical assistance during functional mobility. Cognition Overall Cognitive Status: Confused Expression: Language Barrier (Son assisted with translation) Social Interaction: WFL Adequate to Solve Routine Tasks Problem Solving: Cueing to Sequence Task Orientation: Alert & Oriented x3;To Person;To Time;To Situation Attention: Awake/Alert UE PROM Overall BUE PROM WNL: Yes UE AROM Overall BUE AROM WNL: Yes Coordination: Adequate to Complete ADLs Grasp: Bilateral Grasp Functional for Activity UE Strength / Tone Overall Strength / Tone: WFL Able to Perform ADL Tasks Education Persons Educated: Patient/Family Barriers To Learning: Language Barrier;Pain Interventions: Diamond Driller Present (son to interpret) Teaching Methods: Verbal Instruction;Demonstration Patient Response: Verbalized and Demo Understanding;More Instruction Required Topics: Role of OT, Goals for Therapy;ADL Compensatory Techniques Goal Formulation: With Patient Assessment Assessment: Decreased ADL Status;Decreased High-Level ADLs;Decreased Self-Care Trans;Decreased Endurance Prognosis: Good;w/Cont OT s/p Acute Discharge Goal Formulation: Patient Plan Treatment Interventions: ADL Retraining;Functional Transfer Training;Endurance Training Progress: Progressing Toward Goals OT Frequency: 5x/week ADL Goals Patient Will Perform Grooming: w/ Moderate Assist, Standing at Sink Patient Will Perform LE Dressing: w/ Minimum Assist Patient Will Perform Toileting: w/ Minimum Assist, w/ Grab Bars Functional Transfer Goals Pt Will Perform All Functional Transfers: Minimum Assist Today's Treatment Activities: Increasing distance during functional mobility, standing at sink for grooming. Discharge Recommendations: an inpatient setting vs home with Home Health: At current level of function would recommend inpatient setting due to the following barriers: pain, poor endurance, requiring assistance with all functional mobility and ADLs. If patient does discharge home would require: / assistance, assist with all ADLs, DME (shower chair, commode) Equipment Recommendations: Too early to be determined Therapist: Teresa Gallegos, OTR/L [id number] Date: 05/05/2017 * Edward Mcallister DO - 05/05/2017 10:18 AM CDT Formatting of this note may be different from the original. 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 - 03/05/2017: BMBX in CR both by morphology and by Flow, cytogenetics 46 XX, no abnormalities - Chimerism 03/05/2017: is 100% donor donor DISC INSPECTOR: - MRINew brain lesion on MRI 04/29: concerning for infection or malignancy. "Enhancing nodular medial right cerebellar lesion and numerous additional smaller enhancing juxtacortical bilateral cerebral, basal nuclei, and brainstem lesions with mild associated multifocal vasogenic edema likely reflecting leukemia. Opportunistic intracranial infection could appear similar. - No prior history of DISC INSPECTOR malignancy. LP 04/12/17 did not show evidence of leukemia. Plan: 1. CT scans chest abdomen and pelvis: Mild cardiomegaly, borderline vascular congestion patchy groundglass opacity suggesting volume overload. Atypical infectious etiology considered less likely. Abdomen: Interval ORIF of left intertrochanteric and trochanteric fractures with persistent surrounding soft tissue stranding. Mild splenomegaly. Persistent trace dependent pelvic ascites. 2. CT Sinus : Right mastoiditis. Will have instrumentation today by ENT, cult, stains, histo-path. 3. Ophthalmology consultation cont current meds, add pred L eye and cyclopentoate L eye 4. ID recommendations noted/ appreciated- toxoplasma IgG positive. Aspergillus negative, Other tests awaited. 5. Neurosurgery consultation noted/ appreciated: No plans for biopsy at this time. 6. LP 05/03/2017, unrevealing to date 7. Obtained blood cultures, NGTD 3. Neuro/MSK: Traumatic Subarachnoid hemorrhage and infra orbital bleed L. -s/p fall at home with + LOC -CT head 04/16: Moderate subarachnoid hemorrhage scattered throughout the bilateral hemispheric sulci >decreased propranolol to 15mg TID for neuro storming, will wean as tolerated Musculoskeletal/ Orthopedic Injuries- -T11 compression fractureduring her fall that has remained stable during this admission -displaced left intertrochanteric femur fractureand required surgery on 2016 for stabilization -Currently WBAT for LLE. -Working with PT/OT, planning possible dsch to home Wednesday 4. Pain control: On low dose oxycodone, pain controlled with oxycodone 5. Eyes: - Panuveitis and NAOIN, vision loss, left eye - Continue brimonidine and maxitrol - She has no light perception in the left eye, since early 03/2017 - Ophthalmology opinion as above Heme: - Anemia and thrombocytopenia, stable. Thrombocytopenia improving since orthopedic surgery. - Lovenox for DVT prophylaxis. FEN/Renal: - Renal function and electrolytes stable. - Replace per BMT replacement protocol, she is high goal replacement - Malnourished. Dietary consult. No edema. Consider PEG tube for feeding. ID: Prophylasis: PenVK, Acyclovir, pentamidine Fungus high on diff dx, add oral anti-fungal and anti-toxo tx. All PO and can be given OP. GI: Tolerating regular diet Endo: BG management by endocrine, on long and short acting insulin. Also hypothyroid on Synthroid Psych: Low dose klonopin and trazodone at bedtime. Somewhat more motivated, pt states that she is depressed. GvHD Staging/Grading: Chronic GvHD present oral lichen planus. Subjective: Donna Wilde is a 61 y.o. female Headaches decreased. Cannot see from L eye. Review of Systems: Constitutional: fatigue, malaise, no fevers HENT: Bruising on left half of face, improving, No congestion, dental problem, ear discharge. Ear pain, tinnitus, facial swelling, mouth sores, postnasal discharge, rhinorrhea, sinus pressure, sore throat, trouble swallowing, or voice change Eyes: Decreased vision/ loss of vision left eye, No eye discharge, redness, pain , photophobia CVS: No chest pain, edema, or palpitations Respiratory: No shortness of breath, wheezing, cough, hemoptysis, or chest tightness Abdomen: No abdominal pain, distension, blood in stool, hematemesis, nausea, vomiting, diarrhea, constipation, or rectal pain : No dysuria, flank pain, frequency, hematuria, urgency MSK: Pain left lower extremity, no back pain, joint swelling, myalgias, neck pain or stiffness Endocrine: No cold/ heat intolerance, polyuria, polydipsia, or polyphagia asthenia Dermatology: Bruising left side of face, No pallor, rash, wound, or color changes Neurology: no headaches, no dizziness, seizures, speech difficulty, weakness, tremors, light headedness, or syncope. Hematologic: No swelling, or adenopathy Psych: increased sleepiness, no behavior problem, confusion, mood changes, hallucinations, nervous/ anxiety, or suicidal ideation. Objective: Medications: Scheduled Meds: acyclovir (ZOVIRAX) tablet 800 mg 800 mg Oral BID brimonidine (ALPHAGAN P) 0.15 % ophthalmic solution 1 Drop 1 Drop Left Eye TID carboxymethylcellulose (REFRESH PLUS) 0.5 % ophthalmic solution 1 Drop 1 Drop Both Eyes QID clonazePAM (KLONOPIN) tablet 0.25 mg 0.25 mg Oral QHS cyclopentolate (CYCLODRYL) 1 % ophthalmic solution 1 Drop 1 Drop Left Eye TID ergocalciferol (VITAMIN D-2) capsule 50,000 Units 50,000 Units Oral Q7 Days insulin aspart (NOVOLOG FLEXPEN) injection PEN 0-14 Units 0-14 Units Subcutaneous ACHS insulin glargine (LANTUS SOLOSTAR) injection PEN 10 Units 10 Units Subcutaneous QHS leucovorin tablet 25 mg 25 mg Oral QDAY levothyroxine (SYNTHROID) tablet 50 mcg 50 mcg Oral QDAY 30 min before breakfast melatonin tablet 3 mg 3 mg Oral QHS neomycin/polymyxin/dexamethasone (MAXITROL) ophthalmic suspension 1 Drop 1 Drop Left Eye BID penicillin V potassium (VEETID) tablet 750 mg 750 mg Oral BID pentamidine (NEBUPENT) nebulizer solution 300 mg 300 mg Inhalation Q28 Days polyethylene glycol 3350 (MIRALAX) packet 17 g 17 g Oral QDAY posaconazole EC (NOXAFIL) tablet 300 mg 300 mg Oral BID w/meals posaconazole EC (NOXAFIL) tablet 400 mg 400 mg Oral QDAY w/breakfast prednisolone acetate (PRED FORTE) 1 % ophthalmic suspension 1 Drop 1 Drop Left Eye QID propranolol (INDERAL) tablet 20 mg 20 mg Oral TID pyrimethamine (DARAPRIM) tablet 50 mg 50 mg Oral QDAY senna/docusate (SENOKOT-S) tablet 1 Tab 1 Tab Oral BID sulfADIAZINE tablet 1,000 mg 1,000 mg Oral QID traZODone (DESYREL) tablet 25 mg 25 mg Oral QHS Continuous Infusions: sodium chloride 0.9 % infusion 20 mL/hr at 05/03/17 1301 sodium chloride 0.9 % infusion Stopped (05/05/17 0120) PRN and Respiratory Meds:acetaminophen Q4H PRN, alteplase PRN (Mixing Plant Operator from Rx) , amitriptyline/gabapentin/emu oil(#) Q8H PRN, benzonatate TID PRN, fentaNYL citrate PF Q2H PRN, magnesium sulfate 4 g/50 mL PRN, mineral oil/white petrolatum TID PRN, potassium chloride PRN (Mixing Plant Operator from Rx), prochlorperazine Q6H PRN OR prochlorperazine Q6H PRN, traMADol Q6H PRN Vital Signs: Last Filed Vital Signs: 24 Hour Range BP: 148/66 (05/05 803) Temp: 36.7 C (98.1 F) (05/05 803) Pulse: 68 (05/05 803) Respirations: 18 PER MINUTE (05/05 803) SpO2: 100 % (05/05 803) O2 Delivery: None (Room Air) (05/05 803) BP: (128-148)/(56-66) Temp: [36.6 C (97.8 F)-37.3 C (99.2 F)] Pulse: [65-70] Respirations: [14 PER MINUTE-20 PER MINUTE] SpO2: [98 %-100 %] O2 Delivery: None (Room Air) Intensity Pain Scale 0-10 (Pain 1): (not recorded) Vitals: 05/03/17 0339 05/04/17 0324 05/05/17 0343 Weight: 59.6 kg (131 lb 6.3 oz) 58.8 kg (129 lb 10.1 oz) 56.8 kg (125 lb 3.5 oz ) Intake/Output Summary: (Last 24 hours) Intake/Output Summary (Last 24 hours) at 05/05/17 1018 Last data filed at 05/05/17 0800 Gross per 24 hour Intake 2816 ml Output 0 ml Net 2816 ml Physical Exam: Performance Status ([place]of[place]): 50% Requires considerable assistance and frequent medical care General: Cachectic, in bed, weak. Flat affect. Head: Normocephalic, without obvious abnormality, atraumatic, large bruising left side of face. Eyes: Conjunctivae/corneas clear. Anisocoria. Loss of vision left eye Throat: Lips, mucosa and tongue normal. Teeth and gums normal Neck: Supple, symmetrical, trachea midline, no adenopathy Lungs: basilar rales bilat Heart: Regular rate and rhythm, S1, S2 normal, no murmur, click rub or gallop Abdomen: Soft, non-tender. Bowel sounds normal. No masses. No organomegaly. Extremities: Recently operated left lower extremity, decreased movements, no swelling or deformity, no cyanosis or trace edema both LE. Skin: Skin color, texture, turgor normal. No rashes or lesions Musculoskeletal: Recently operated left lower extremity, decreased movements, no swelling or deformity Psych: Normal Ventilator/Respiratory Support: none Lab Review: CBC w/Diff Lab Results Component Value Date/Time WBC 3.8 (L) 05/05/2017 04:31 AM RBC 2.17 (L) 05/05/2017 04:31 AM HGB 8.1 (L) 05/05/2017 04:31 AM HCT 22.7 (L) 05/05/2017 04:31 AM MCV 104.5 (H) 05/05/2017 04:31 AM MCH 37.3 (H) 05/05/2017 04:31 AM MCHC 35.6 05/05/2017 04:31 AM RDW 19.9 (H) 05/05/2017 04:31 AM PLTCT 94 (L) 05/05/2017 04:31 AM MPV 6.4 (L) 05/05/2017 04:31 AM Lab Results Component Value Date/Time NEUT 43 05/05/2017 04:31 AM ANC 1.60 (L) 05/05/2017 04:31 AM LYMA 42 05/05/2017 04:31 AM ALC 1.60 05/05/2017 04:31 AM BRUCE 13 (H) 05/05/2017 04:31 AM AMC 0.50 05/05/2017 04:31 AM EOSA 2 05/05/2017 04:31 AM AEC 0.10 05/05/2017 04:31 AM BASA 0 05/05/2017 04:31 AM ABC 0.00 05/05/2017 04:31 AM Comprehensive Metabolic Profile Lab Results Component Value Date/Time NA 136 (L) 05/05/2017 04:31 AM K 4.0 05/05/2017 04:31 AM CL 109 05/05/2017 04:31 AM CO2 23 05/05/2017 04:31 AM GAP 4 05/05/2017 04:31 AM BUN 14 05/05/2017 04:31 AM CR 0.85 05/05/2017 04:31 AM GLU 148 (H) 05/05/2017 04:31 AM Lab Results Component Value Date/Time CA 9.4 05/05/2017 04:31 AM PO4 3.9 05/04/2017 06:46 AM ALBUMIN 2.6 (L) 05/04/2017 06:46 AM TOTPROT 5.2 (L) 05/04/2017 06:46 AM ALKPHOS 180 (H) 05/04/2017 06:46 AM AST 30 05/04/2017 06:46 AM ALT 13 05/04/2017 06:46 AM TOTBILI 0.6 05/04/2017 06:46 AM GFR >60 05/05/2017 04:31 AM GFRAA >60 05/05/2017 04:31 AM Point of Care Testing: (Last 24 hours): FSBS (Manual): (!) 215 (05/04/17 1730) Glucose: (!) 148 (05/05/17 0431) POC Glucose (Download): (!) 151 (05/05/17 0803) Radiology Review: Pertinent radiology reviewed. * Bryan Tucker, PT - 05/05/2017 9:50 AM CDT PHYSICAL THERAPY PROGRESS NOTE MOBILITY: Mobility Progressive Mobility Level: Walk in room Distance Walked (feet): 12 ft Level of Assistance: Assist X1 Assistive Device: Walker Time Tolerated: 31-60 minutes Activity Limited By: Fatigue SUBJECTIVE: Subjective Significant hospital events: 61 year old female with a past medical history of HTN, HLD, DM, hypothyroidism and AML. Patient was transferred to [facility] from an outside hospital on 04-16-2017 after sustaining a fall at home hitting her head and having a positive loss of consciousness. Patient was found to have a suffered subsequent subarachnoid hemorrhage, possible right cerebellar stroke ( which after further imaging has not been shown to be vasogenic edema surrounding cerebellar lesions - see below), T1 compression fracture and a left femur fracture. Patient is status post a cephalomedullary nailing on 04-19-2017. Patient was discharged from hospital to rehab facility but was quickly re- admitted to after new areas found in brain MRI on 04/29. PT ordered to assist with mobility while on acute unit. Mental / Cognitive Status: Alert;Oriented;Cooperative Persons Present: Son Pain: Patient does not rate pain;Patient demonstrates non-verbal signs of pain Pain Location: Left;Hip Pain Description: Aching Pain Interventions: Patient agrees to participate in therapy Comments: Patient in bed upon entering room. Patient states she needs to use the bathroom. PT assists with transfer to commode and then ambulation over to the chair. LE Precautions: LLE WBAT: Weight Bearing as Tolerated Ambulation Assist: Independent Mobility at Household Level with Device Patient Owned Equipment: Roller Walker;Manual Wheelchair;Single Point Cane Home Situation: Lives with Family Type of Home: House Entry Stairs: Ramp In-Home Stairs: No Stairs BED MOBILITY/TRANSFERS: Bed Mobility/Transfers Bed Mobility: Sit to Supine: Minimal Assist;Assist with L LE;Use of Rail;HOB Elevated Transfer Type: Sit to Stand Transfer: Assistance Level: From;Bed;Minimal Assist Transfer: Assistive Device: Roller Walker Transfers: Type Of Assistance: Verbal Cues;For Safety Considerations Other Transfer Type: Sit to/from Stand Other Transfer: Assistance Level: To/From;Commode;Minimal Assist Other Transfer: Assistive Device: Roller Walker Other Transfer: Type Of Assistance: Verbal Cues;For Safety Considerations End Of Activity Status: Up in Chair;Nursing Notified;Instructed Patient to Use Call Light GAIT: Gait Gait Distance: 12 feet Gait: Assistance Level: Minimal Assist;Safety Considerations Gait: Assistive Device: Roller Walker Gait: Descriptors: Pace: Slow;Swing-Through Gait;No balance loss;Decreased step length ACTIVITY/EXERCISE: Activity / Exercise Comments: PT provides patient with exercise ergometer for increased activity while sitting up in the chair. EDUCATION: Education Persons Educated: Patient/Family Patient Barriers To Learning: Language Barrier Interventions: Family Education;Repetition of Instructions Teaching Methods: Verbal Instruction Patient Response: Verbalized Understanding Topics: Plan/Goals of PT Interventions;Use of Assistive Device/Orthosis; Mobility Progression;Exercise Program;Safety Awareness;Up with Assist Only; Importance of Increasing Activity ASSESSMENT/PROGRESS: Assessment/Progress Impaired Mobility Due To: Decreased Strength;Pain Assessment/Progress: Should Improve w/ Continued PT Comments: Patient with functional improvement this date and does fairly well with ambulation. Patient continues to have pain but seems to be tolerates activity well and will continue to benefit from further upright activity with therapy. Patient is going to need 24/7 assist at home upon discharge for safety with transfers and mobility until patient regains full strength. GOALS: Goals Goal Formulation: With Patient Time For Goal Achievement: 7 days Pt Will Go Supine To/From Sit: w/ Stand By Assist Pt Will Transfer Bed/Chair: w/ Minimal Assist Pt Will Transfer Sit to Stand: w/ Minimal Assist Pt Will Ambulate: 31-50 Feet, w/ Walker, w/ Minimal Assist PLAN: Plan Treatment Interventions: Mobility Training;Strengthening;Balance Activities; Coordination Training;Endurance Training Plan Frequency: 5 Days per Week Comments: PT to see patient early in the morning on to increase ambulation distance and educate family as able. Patient to discharge home with family assist and home health on Wednesday per discussion this morning with patient , son and medical team. RECOMMENDATIONS: PT Discharge Recommendations PT Discharge Recommendations: Home Health Setting;to address deficits, maximize function and improve safety Equipment Recommendations: Patient owns necessary equipment Therapist: Bryan Tucker DPT Date: 05/05/2017 * Parisa Milian MD - 05/05/2017 8:52 AM CDT Formatting of this note may be different from the original. Infectious Disease Progress Note Name: Donna Wilde Today's Date: 05/05/2017 Assessment: Right cerebellar enhancing lesion and numerous smaller [...] done by IR on 04/12 with 11 WBC, 94% lymphocytes, protein 68, glucose 70 - Toxoplasma CSF PCR negative 04/12 - CSF culture negative 04/12 - Crypto serum Ag negative 04/20 - Galactomannan negative 04/19 - Fungitell negative 04/19 - Histo, crypto, coccidioides workup negative 04/20 - 04/18 staph epidermidis + blood culture, contaminant - Workup this admission: - Toxoplasma IgG positive 05/01 - Cryptococcal serum Ag negative 05/01 - Fungitell negative 05/01 - Galactomannan 05/01 [...] s/p HSCT 02/2016 Hx GVHD Hx pancytopenia Recommendations: - Do not feel CoNS culture from biopsy is significant - Noted toxoplasma IgG positive; toxoplasma IgM is not reliable for diagnostic purposes. Would recommend to start empiric treatment for toxoplasma while we await the above studies. Dosing is based on the patient's weight < 60kg. - Contt sulfadiazine 1000mg PO four times daily, pyrimethamine, leucovorin 25mg daily -Repeat MRI sometime between 05/25-06/04/17 to re-eval cerebellar lesion - Follow up pending studies: histo serum ag (negative during previous admission) , blood cultures, fungal blood cultures Will follow. Mrs. Wilde has complex disease requiring complex medical decision making for sinus mass, brain lesions, immunosuppresison. I reviewed the chart and interviewed and examined the patient and formulated the plan as above. Discussed with Dr. Mcallister. Discussed with Dr. Morataya. Parisa Milian MD Infectious Diseases Faculty Pager: [phone] Interval History Donna Wilde is a 61 y.o. 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 Hx of GVHD , off steroids since 11/2016. Recent admission with fall, subarachnoid hemorrhage , left hip fracture, and fever. Recent hx panuveitis, suspicious for infection. Now with enhancing lesions in the R cerebellum and scattered intracranial and maxillary/orbital lesions as well. Consulted for further workup. Afebrile, VSS. IN bed. No f/c/ns, cough, SOB, abd pain. No new vision changes. No sig changes. Not taking much PO. Son in room. Would like to leaves as soon as able. Antimicrobial Start date End date Acyclovir prophylaxis 04/30 Penicillin V prophylaxis 04/30 Pentamidine prophylaxis To be given 05/05 Pyramethamine, sulfdiazine 05/04/17 Estimated Creatinine Clearance: 63.1 mL/min (based on Cr of 0.85). Medications Scheduled Meds: acyclovir (ZOVIRAX) tablet 800 mg 800 mg Oral BID brimonidine (ALPHAGAN P) 0.15 % ophthalmic solution 1 Drop 1 Drop Left Eye TID carboxymethylcellulose (REFRESH PLUS) 0.5 % ophthalmic solution 1 Drop 1 Drop Both Eyes QID clonazePAM (KLONOPIN) tablet 0.25 mg 0.25 mg Oral QHS cyclopentolate (CYCLODRYL) 1 % ophthalmic solution 1 Drop 1 Drop Left Eye TID ergocalciferol (VITAMIN D-2) capsule 50,000 Units 50,000 Units Oral Q7 Days insulin aspart (NOVOLOG FLEXPEN) injection PEN 0-14 Units 0-14 Units Subcutaneous ACHS insulin glargine (LANTUS SOLOSTAR) injection PEN 10 Units 10 Units Subcutaneous QHS leucovorin tablet 25 mg 25 mg Oral QDAY levothyroxine (SYNTHROID) tablet 50 mcg 50 mcg Oral QDAY 30 min before breakfast melatonin tablet 3 mg 3 mg Oral QHS neomycin/polymyxin/dexamethasone (MAXITROL) ophthalmic suspension 1 Drop 1 Drop Left Eye BID penicillin V potassium (VEETID) tablet 750 mg 750 mg Oral BID pentamidine (NEBUPENT) nebulizer solution 300 mg 300 mg Inhalation Q28 Days polyethylene glycol 3350 (MIRALAX) packet 17 g 17 g Oral QDAY posaconazole EC (NOXAFIL) tablet 300 mg 300 mg Oral BID w/meals posaconazole EC (NOXAFIL) tablet 400 mg 400 mg Oral QDAY w/breakfast prednisolone acetate (PRED FORTE) 1 % ophthalmic suspension 1 Drop 1 Drop Left Eye QID propranolol (INDERAL) tablet 20 mg 20 mg Oral TID pyrimethamine (DARAPRIM) tablet 50 mg 50 mg Oral QDAY senna/docusate (SENOKOT-S) tablet 1 Tab 1 Tab Oral BID sulfADIAZINE tablet 1,000 mg 1,000 mg Oral QID traZODone (DESYREL) tablet 25 mg 25 mg Oral QHS Continuous Infusions: sodium chloride 0.9 % infusion 20 mL/hr at 05/03/17 1301 sodium chloride 0.9 % infusion Stopped (05/05/17 0120) PRN and Respiratory Meds:acetaminophen Q4H PRN, alteplase PRN (Mixing Plant Operator from Rx) , amitriptyline/gabapentin/emu oil(#) Q8H PRN, benzonatate TID PRN, fentaNYL citrate PF Q2H PRN, magnesium sulfate 4 g/50 mL PRN, mineral oil/white petrolatum TID PRN, potassium chloride PRN (Mixing Plant Operator from Rx), prochlorperazine Q6H PRN OR prochlorperazine Q6H PRN, traMADol Q6H PRN Physical Examination Vital Signs: Last Vital Signs: 24 Hour Range BP: 148/66 (05/05 803) Temp: 36.7 C (98.1 F) (05/05 803) Pulse: 68 (05/05 803) Respirations: 18 PER MINUTE (05/05 803) SpO2: 100 % (05/05 803) O2 Delivery: None (Room Air) (05/05 803) BP: (128-148)/(56-66) Temp: [36.6 C (97.8 F)-37.3 C (99.2 F)] Pulse: [65-70] Respirations: [14 PER MINUTE-20 PER MINUTE] SpO2: [98 %-100 %] O2 Delivery: None (Room Air) General appearance: Alert, oriented. NAD. Appears older than stated age. Thin, frail. HENT: Mucus membranes moist Eyes: Conj nl. Left pupil nonreactive. Neck: Supple, no rigidity Lungs: No wheezing, rhonchi, or crackles appreciated. Nonlabored. Heart: Regular rhythm, reg rate, + systolic murmur unchanged, no peripheral edema Abdomen: Soft, non-tender, non-distended, normoactive bowel sounds Ext: No clubbing, cyanosis or edema Skin: Bruising over the left face resolving. No rashes or jaundice. Laboratory Hematology Recent Labs 05/03/17 0513 05/03/17 0924 05/04/17 0646 05/05/17 0431 WBC 3.4* -- 3.7* 3.8* HGB 7.9* -- 8.2* 8.1* HCT 22.2* -- 23.1* 22.7* PLTCT 92* -- 102* 94* PTT -- 28.7 -- -- INR -- 1.0 -- -- Chemistry Recent Labs 05/03/17 0513 05/04/17 0646 05/05/17 0431 NA 135* 135* 136* K 4.1 3.8 4.0 CL 108 108 109 CO2 22 23 23 BUN 14 16 14 CR 0.63 0.73 0.85 GFR >60 >60 >60 GLU 81 77 148* CA 8.9 9.3 9.4 PO4 -- 3.9 -- ALBUMIN -- 2.6* -- ALKPHOS -- 180* -- AST -- 30 -- ALT -- 13 -- TOTBILI -- 0.6 -- Microbiology, Radiology and other Diagnostics Review Microbiology reviewed. 05/03 maxillary tissue/swab culture - gram stains with no organisms seen Pertinent radiology viewed. CT c/a/p 04/30: IMPRESSION CHEST: 1. Mild cardiomegaly, borderline vascular congestion patchy groundglass opacity suggesting volume overload. Atypical infectious etiology considered less likely. 2. Calcified coronary artery atherosclerosis right disease ABDOMEN AND PELVIS: 1. Interval ORIF of left intertrochanteric and trochanteric fractures with persistent surrounding soft tissue stranding. 2. Mild splenomegaly. 3. Persistent trace dependent pelvic ascites. CT sinus 04/30: IMPRESSION 1. Right mastoiditis. 2. Mild maxillary sinus disease greater on the left. 3. Small periapical abscess involving left maxillary premolar. 4. Stable enhancing right cerebellar lesion. Parisa Milian MD Pager [phone] * Maddie Talbot RN - 05/05/2017 6:12 AM CDT Shift: 7p- NEWS Score: 0,0,0 Pain: Pt not complaining of pain but grimaces while being turned. Pt does not want any medications. Recommending to pretreat with 100mg of tramadol before PT/ OT to help with pain. Nutrition: Neutropenic; poor appetite. Encouraged to increase nutritional intake and fluid intake. GI/: Pt incontinent of bowel and bladder. Pt has had 2 stools this shift. Checking pt brief q2h. Activity: Pt is up w/2-3; and q2h turning. Family: present at beginning of shift and son at bedside throughout evening. Last Shower: 05/04 New Events or Follow-up: Help encourage pt and family to increase nutritional intake-1-2 boosts daily. Pt is israeli speaking-will need interpreter and translator for discussion with physicians throughout day. Pt needs magnesium this AM. Pt's potassium is 4.0; pt is high goal replacements, need to talk with team about high goal replacements and see if all 4 bags is necessary due to 1 IV line and how slow potassium has to run throughout day. * Lindsay Tucker RN - 05/04/2017 7:47 PM CDT Shift: Day NEWS: 0 / 0 / 0 Nutrition: Pt ate 50% of breakfast, drank most of a boost and protein shake, ate dinner from home (unsure of amount). Activity: Pt sat in chair 1 1/2 hours. Ambulated to bed from chair and commode. Pain: Pt denies pain but grimaces with moving. Pt premed with 50 tramadol prior to PT, recommend 100 tomorrow. Avoiding oxy and fentanyl due to pt's sleepy disposition. CV: Regular rate and rhythm, High replacements Resp: Clear, decreased in bases, encourage IS Neuro: A/O GI/: Checking pt brief q2h. Incontinent of bowel and bladder. Three soft stools this shift. Family: at bedside all day, son this evening. Last shower and linen change: 05/04 Follow-up: Inquire with team during rounds tomorrow about decreasing high replacements due to peripheral IV. Lost one IV today, running potassium at 10 Y 'd in with fluids running at 50. Encourage IS and supplements. * Bryan Tucker, PT - 05/04/2017 3:10 PM CDT PHYSICAL THERAPY PROGRESS NOTE MOBILITY: Mobility Progressive Mobility Level: Active transfer to chair Level of Assistance: Assist X1 Assistive Device: Walker Time Tolerated: 11-30 minutes Activity Limited By: Weakness;Pain SUBJECTIVE: Subjective Significant hospital events: 61 year old female with a past medical history of HTN, HLD, DM, hypothyroidism and AML. Patient was transferred to [facility] from an outside hospital on 04-16-2017 after sustaining a fall at home hitting her head and having a positive loss of consciousness. Patient was found to have a suffered subsequent subarachnoid hemorrhage, possible right cerebellar stroke ( which after further imaging has not been shown to be vasogenic edema surrounding cerebellar lesions - see below), T1 compression fracture and a left femur fracture. Patient is status post a cephalomedullary nailing on 04-19-2017. Patient was discharged from hospital to rehab facility but was quickly re- admitted to after new areas found in brain MRI on 04/29. PT ordered to assist with mobility while on acute unit. Mental / Cognitive Status: Alert;Oriented;Cooperative Persons Present: Spouse Pain: 04/19 Pain Location: Left;Hip Pain Description: Aching Pain Interventions: Patient agrees to participate in therapy with modifications to session Comments: Patient sitting up in chair upon entering room. Patient seems frustrated by PT presence today and argues back and forth with her spouse about moving around today. Upon pulling blankets back, PT notices that patient had had a bowel accident. Per spouse, patient did that over an hour ago but they did not tell anyone. RN made aware of this and RN comes into room to assist with clean up. PT assist with patient getting to commode and then back to bed. LE Precautions: LLE WBAT: Weight Bearing as Tolerated Ambulation Assist: Independent Mobility at Household Level with Device Patient Owned Equipment: Roller Walker;Manual Wheelchair;Single Point Cane Home Situation: Lives with Family Type of Home: House Entry Stairs: Ramp In-Home Stairs: No Stairs BED MOBILITY/TRANSFERS: Bed Mobility/Transfers Bed Mobility: Sit to Supine: Moderate Assist;Assist with L LE Transfer Type: Sit to/from Stand Transfer: Assistance Level: To/From;Bed Side Chair;Toilet;Minimal Assist Transfer: Assistive Device: Roller Walker Transfers: Type Of Assistance: Verbal Cues;For Safety Considerations End Of Activity Status: In Bed;Nursing Notified;Instructed Patient to Use Call Light GAIT: Gait Comments: Patient takes a couple of steps over to bed from commode with minimal assist. Patient likely could ambulate room distances right now with minimal assistance. ACTIVITY/EXERCISE: Activity / Exercise Comments: Patient on commode for 15 minutes getting cleaned up and getting new brief and gown. EDUCATION: Education Persons Educated: Patient/Family Patient Barriers To Learning: Language Barrier Interventions: Family Education;Repetition of Instructions Teaching Methods: Verbal Instruction Patient Response: Verbalized Understanding Topics: Plan/Goals of PT Interventions;Use of Assistive Device/Orthosis; Mobility Progression;Exercise Program;Safety Awareness;Up with Assist Only; Importance of Increasing Activity ASSESSMENT/PROGRESS: Assessment/Progress Impaired Mobility Due To: Pain Assessment/Progress: Should Improve w/ Continued PT Comments: Patient with potential to improved but seems very depressed and un- motivated to work hard with therapy. Patient needs continued motivation to participate and may need further assistance from psychology and medical team. GOALS: Goals Goal Formulation: With Patient Time For Goal Achievement: 7 days Pt Will Go Supine To/From Sit: w/ Stand By Assist Pt Will Transfer Bed/Chair: w/ Minimal Assist Pt Will Transfer Sit to Stand: w/ Minimal Assist Pt Will Ambulate: 31-50 Feet, w/ Walker, w/ Minimal Assist PLAN: Plan Treatment Interventions: Mobility Training;Strengthening;Balance Activities; Coordination Training;Endurance Training Plan Frequency: 5 Days per Week Comments: PT to continue to work on ambulation and basic transfers. RECOMMENDATIONS: PT Discharge Recommendations PT Discharge Recommendations: Inpatient Setting;to address deficits, maximize function and improve safety Equipment Recommendations: Patient owns necessary equipment Therapist: Bryan Tucker DPT Date: 05/04/2017 * Teresa Gallegos OT - 05/04/2017 2:21 PM CDT Formatting of this note may be different from the original. 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 Female with hx DM2, hypothyroidism, HTN, AML in remission s/p SCT 03/02/16, admitted w diffuse tSAH, and right chronic cerebellar stroke and L intertrochanteric fx s/p fall from standing on 04/16/17. S /P L CMN 04/19. Precautions: Isolation LE Precautions: LLE WBAT: Weight Bearing as Tolerated Pain / Complaints: Patient premedicated;Patient demonstrates nonverbal signs of pain Pain Location: Left;Leg Comments: Patient does not rate pain however decmonstrates nonverbal signs of pain upon initial stand. Pt left seated in bedside chair, all needs within reach and chair alarm in place. Objective Psychosocial Status: Willing and Cooperative to Participate Persons Present: Spouse Home Living Type of Home: House Home Layout: One Level;Ramped Entrance Bathroom Equipment: Shower Chair Home Equipment: Walker;Cane Prior Function Level Of [place]: Needed assistance with ADLs;Needed assistance with homemaking;Needed assistance with functional transfers (intermittently) Lives With: Spouse Receives Help From: Spouse;Family Vision Comment: L visual impairement with limited acuity in L eye ADL's Where Assessed: Edge of Bed Toileting Assist: Maximum Assist Toileting Deficits: Perineal Hygiene;Clothing Management Down;Clothing Management Up;Bedside Commode Functional Transfer Assist: Moderate Assist (x2) Functional Transfer Deficits: Commode Transfer (Chair transfer) Comment: Pt requires assist x2 from supine to sit. Moderate assist x2 from sit to stand, hand hold assistance for stability. Pt transferred to bedside commode. Requires assistance with all aspects of toileting. Stand pivot to bedside chair. Pt left with all needs within reach. Activity Tolerance Endurance: 3/5 Tolerates 25-30 Minutes Exercise w/Multiple Rests Sitting Balance: 2+/5 Supports Self w/ 1 UE Cognition Overall Cognitive Status: Confused Expression: Language Barrier Social Interaction: WFL Adequate to Solve Routine Tasks Problem Solving: Cueing to Sequence Task Orientation: Alert & Oriented x3;To Person;To Time;To Situation (stated hospital but not able to recall name of hospital) Attention: Awake/Alert Cognition Comment: Pt lethargic however cooperative. UE AROM Overall BUE AROM WNL: Yes Education Persons Educated: Patient/Family Barriers To Learning: Language Barrier;Pain Interventions: Repetition of Instructions (Family to transfer) Teaching Methods: Verbal Instruction;Demonstration Patient Response: Verbalized and Demo Understanding;More Instruction Required Topics: Role of OT, Goals for Therapy;ADL Compensatory Techniques Goal Formulation: With Patient Assessment Assessment: Decreased ADL Status;Decreased High-Level ADLs;Decreased Self-Care Trans;Decreased Endurance Prognosis: Good;w/Cont OT s/p Acute Discharge Goal Formulation: Patient Plan Treatment Interventions: ADL Retraining;Functional Transfer Training;Endurance Training OT Frequency: 5x/week ADL Goals Patient Will Perform Grooming: w/ Moderate Assist, Standing at Sink Patient Will Perform LE Dressing: w/ Minimum Assist Patient Will Perform Toileting: w/ Minimum Assist, w/ Grab Bars Functional Transfer Goals Pt Will Perform All Functional Transfers: Minimum Assist Vision Goals Comment: L visual impairement with limited acuity in L eye OT Discharge Recommendations OT Discharge Recommendations: Inpatient Setting Equipment Recommendations: Too early to be determined Additional Information: Will continue to assess patient and update reccomendations as appropriate. G-Codes: Self-care [id number] Current Status: 60-79% Impairment [id number] Goal Status: 40-59% Impairment Based on above evaluation and clinical judgment. Therapist: Teresa Gallegos, OTR/L [id number] Date: 05/04/2017 * Edward Mcallister DO - 05/04/2017 10:06 AM CDT Formatting of this note may be different from the original. 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 - 03/05/2017: BMBX in CR both by morphology and by Flow, cytogenetics 46 XX, no abnormalities - Chimerism 03/05/2017: is 100% donor donor DISC INSPECTOR: - MRINew brain lesion on MRI 04/29: concerning for infection or malignancy. "Enhancing nodular medial right cerebellar lesion and numerous additional smaller enhancing juxtacortical bilateral cerebral, basal nuclei, and brainstem lesions with mild associated multifocal vasogenic edema likely reflecting leukemia. Opportunistic intracranial infection could appear similar. - No prior history of DISC INSPECTOR malignancy. LP 04/12/17 did not show evidence of leukemia. Plan: 1. CT scans chest abdomen and pelvis: Mild cardiomegaly, borderline vascular congestion patchy groundglass opacity suggesting volume overload. Atypical infectious etiology considered less likely. Abdomen: Interval ORIF of left intertrochanteric and trochanteric fractures with persistent surrounding soft tissue stranding. Mild splenomegaly. Persistent trace dependent pelvic ascites. 2. CT Sinus : Right mastoiditis. Will have instrumentation today by ENT, cult, stains, histo-path. 4. Ophthalmology consultation cont current meds, add pred L eye and cyclopentoate L eye 4. ID recommendations noted/ appreciated- toxoplasma IgG positive. Aspergillus negative, Other tests awaited. 5. Neurosurgery consultation noted/ appreciated: No plans for biopsy at this time. 6. LP 05/03/2017, unrevealing to date 7. Obtained blood cultures, NGTD 3. Neuro/MSK: Traumatic Subarachnoid hemorrhage and infra orbital bleed L. -s/p fall at home with + LOC -CT head 04/16: Moderate subarachnoid hemorrhage scattered throughout the bilateral hemispheric sulci >decreased propranolol to 15mg TID for neuro storming, will wean as tolerated Musculoskeletal/ Orthopedic Injuries- -T11 compression fractureduring her fall that has remained stable during this admission -displaced left intertrochanteric femur fractureand required surgery on 2016 for stabilization -Currently WBAT for LLE. -Consult PT/OT 4. Pain control: On low dose oxycodone, pain controlled with oxycodone 5. Eyes: - Panuveitis and NAOIN, vision loss, left eye - Continue brimonidine and maxitrol - She has no light perception in the left eye, since early 03/2017 - Ophthalmology opinion as above Heme: - Anemia and thrombocytopenia, stable. Thrombocytopenia improving since orthopedic surgery. - Lovenox for DVT prophylaxis. FEN/Renal: - Renal function and electrolytes stable. - Replace per BMT replacement protocol, she is high goal replacement - Malnourished. Dietary consult. No edema. Consider PEG tube for feeding. ID: Prophylasis: PenVK, Acyclovir, pentamidine Fungus high on diff dx, add oral anti-fungal and anti-toxo tx. GI: Tolerating regular diet Endo: BG management by endocrine, on long and short acting insulin. Also hypothyroid on Synthroid Psych: Low dose klonopin and trazodone at bedtime. Amoyivational, palliative care consult to optimize sx management, pt states that she is depressed. Will have Onc Psych eval pt. . GvHD Staging/Grading: Chronic GvHD present oral lichen planus. Subjective: Donna Wilde is a 61 y.o. female Headaches decreased. Cannot see from L eye. Review of Systems: Constitutional: fatigue, malaise, no fevers HENT: Bruising on left half of face, improving, No congestion, dental problem, ear discharge. Ear pain, tinnitus, facial swelling, mouth sores, postnasal discharge, rhinorrhea, sinus pressure, sore throat, trouble swallowing, or voice change Eyes: Decreased vision/ loss of vision left eye, No eye discharge, redness, pain , photophobia CVS: No chest pain, edema, or palpitations Respiratory: No shortness of breath, wheezing, cough, hemoptysis, or chest tightness Abdomen: No abdominal pain, distension, blood in stool, hematemesis, nausea, vomiting, diarrhea, constipation, or rectal pain : No dysuria, flank pain, frequency, hematuria, urgency MSK: Pain left lower extremity, no back pain, joint swelling, myalgias, neck pain or stiffness Endocrine: No cold/ heat intolerance, polyuria, polydipsia, or polyphagia asthenia Dermatology: Bruising left side of face, No pallor, rash, wound, or color changes Neurology: + headaches, no dizziness, seizures, speech difficulty, weakness, tremors, light headedness, or syncope. Hematologic: No swelling, or adenopathy Psych: increased sleepiness, no behavior problem, confusion, mood changes, hallucinations, nervous/ anxiety, or suicidal ideation. Objective: Medications: Scheduled Meds: acyclovir (ZOVIRAX) tablet 800 mg 800 mg Oral BID brimonidine (ALPHAGAN P) 0.15 % ophthalmic solution 1 Drop 1 Drop Left Eye TID carboxymethylcellulose (REFRESH PLUS) 0.5 % ophthalmic solution 1 Drop 1 Drop Both Eyes QID clonazePAM (KLONOPIN) tablet 0.25 mg 0.25 mg Oral QHS cyclopentolate (CYCLODRYL) 1 % ophthalmic solution 1 Drop 1 Drop Left Eye TID enoxaparin (LOVENOX) syringe 40 mg 40 mg Subcutaneous Q24H* ergocalciferol (VITAMIN D-2) capsule 50,000 Units 50,000 Units Oral Q7 Days insulin aspart (NOVOLOG FLEXPEN) injection PEN 0-14 Units 0-14 Units Subcutaneous ACHS insulin glargine (LANTUS SOLOSTAR) injection PEN 10 Units 10 Units Subcutaneous QHS levothyroxine (SYNTHROID) tablet 50 mcg 50 mcg Oral QDAY 30 min before breakfast melatonin tablet 3 mg 3 mg Oral QHS neomycin/polymyxin/dexamethasone (MAXITROL) ophthalmic suspension 1 Drop 1 Drop Left Eye BID penicillin V potassium (VEETID) tablet 750 mg 750 mg Oral BID [START ON 05/05/2017] pentamidine (NEBUPENT) nebulizer solution 300 mg 300 mg Inhalation Q28 Days polyethylene glycol 3350 (MIRALAX) packet 17 g 17 g Oral QDAY prednisolone acetate (PRED FORTE) 1 % ophthalmic suspension 1 Drop 1 Drop Left Eye QID propranolol (INDERAL) tablet 20 mg 20 mg Oral TID senna/docusate (SENOKOT-S) tablet 1 Tab 1 Tab Oral BID traZODone (DESYREL) tablet 25 mg 25 mg Oral QHS Continuous Infusions: sodium chloride 0.9 % infusion 20 mL/hr at 05/03/17 1301 sodium chloride 0.9 % infusion 75 mL/hr at 05/04/17 0617 PRN and Respiratory Meds:acetaminophen Q4H PRN, alteplase PRN (Mixing Plant Operator from Rx) , amitriptyline/gabapentin/emu oil(#) Q8H PRN, benzonatate TID PRN, fentaNYL citrate PF Q2H PRN, magnesium sulfate 4 g/50 mL PRN, mineral oil/white petrolatum TID PRN, oxyCODONE Q4H PRN, potassium chloride PRN (Mixing Plant Operator from Rx) , prochlorperazine Q6H PRN OR prochlorperazine Q6H PRN Vital Signs: Last Filed Vital Signs: 24 Hour Range BP: 143/61 (05/04 745) Temp: 36.9 C (98.4 F) (05/04 745) Pulse: 61 (05/04 745) Respirations: 14 PER MINUTE (05/04 745) SpO2: 99 % (05/04 745) O2 Delivery: None (Room Air) (05/04 745) SpO2 Pulse: 66 (05/03 1615) BP: (102-177)/(54-72) Temp: [36.5 C (97.7 F)-37.1 C (98.8 F)] Pulse: [61-69] Respirations: [14 PER MINUTE-20 PER MINUTE] SpO2: [92 %-100 %] O2 Delivery: None (Room Air) Intensity Pain Scale 0-10 (Pain 1): (not recorded) Vitals: 05/02/17 0640 05/03/17 0339 05/04/17 0324 Weight: 58.9 kg (129 lb 13.6 oz) 59.6 kg (131 lb 6.3 oz) 58.8 kg (129 lb 10.1 oz ) Intake/Output Summary: (Last 24 hours) Intake/Output Summary (Last 24 hours) at 05/04/17 1006 Last data filed at 05/04/17 0630 Gross per 24 hour Intake 2623 ml Output 0 ml Net 2623 ml Physical Exam: Performance Status ([place]): 40% Disabled, requires special care and assistance General: Cachectic, in bed, weak. Flat affect. Head: Normocephalic, without obvious abnormality, atraumatic, large bruising left side of face. Eyes: Conjunctivae/corneas clear. Anisocoria. Loss of vision left eye Throat: Lips, mucosa and tongue normal. Teeth and gums normal Neck: Supple, symmetrical, trachea midline, no adenopathy Lungs: basilar rales bilat Heart: Regular rate and rhythm, S1, S2 normal, no murmur, click rub or gallop Abdomen: Soft, non-tender. Bowel sounds normal. No masses. No organomegaly. Extremities: Recently operated left lower extremity, decreased movements, no swelling or deformity, no cyanosis or trace edema both LE. Skin: Skin color, texture, turgor normal. No rashes or lesions Musculoskeletal: Recently operated left lower extremity, decreased movements, no swelling or deformity Psych: Normal Ventilator/Respiratory Support: none Lab Review: CBC w/Diff Lab Results Component Value Date/Time WBC 3.7 (L) 05/04/2017 06:46 AM RBC 2.21 (L) 05/04/2017 06:46 AM HGB 8.2 (L) 05/04/2017 06:46 AM HCT 23.1 (L) 05/04/2017 06:46 AM MCV 104.2 (H) 05/04/2017 06:46 AM MCH 36.9 (H) 05/04/2017 06:46 AM MCHC 35.4 05/04/2017 06:46 AM RDW 19.6 (H) 05/04/2017 06:46 AM PLTCT 102 (L) 05/04/2017 06:46 AM MPV 6.4 (L) 05/04/2017 06:46 AM Lab Results Component Value Date/Time NEUT 47 05/04/2017 06:46 AM ANC 1.70 (L) 05/04/2017 06:46 AM LYMA 36 05/04/2017 06:46 AM ALC 1.40 05/04/2017 06:46 AM BRUCE 15 (H) 05/04/2017 06:46 AM AMC 0.60 05/04/2017 06:46 AM EOSA 2 05/04/2017 06:46 AM AEC 0.10 05/04/2017 06:46 AM BASA 0 05/04/2017 06:46 AM ABC 0.00 05/04/2017 06:46 AM Comprehensive Metabolic Profile Lab Results Component Value Date/Time NA 135 (L) 05/04/2017 06:46 AM K 3.8 05/04/2017 06:46 AM CL 108 05/04/2017 06:46 AM CO2 23 05/04/2017 06:46 AM GAP 4 05/04/2017 06:46 AM BUN 16 05/04/2017 06:46 AM CR 0.73 05/04/2017 06:46 AM GLU 77 05/04/2017 06:46 AM Lab Results Component Value Date/Time CA 9.3 05/04/2017 06:46 AM PO4 3.9 05/04/2017 06:46 AM ALBUMIN 2.6 (L) 05/04/2017 06:46 AM TOTPROT 5.2 (L) 05/04/2017 06:46 AM ALKPHOS 180 (H) 05/04/2017 06:46 AM AST 30 05/04/2017 06:46 AM ALT 13 05/04/2017 06:46 AM TOTBILI 0.6 05/04/2017 06:46 AM GFR >60 05/04/2017 06:46 AM GFRAA >60 05/04/2017 06:46 AM Point of Care Testing: (Last 24 hours): FSBS (Manual): 79 (05/03/17 1239) Glucose: 77 (05/04/17 0646) POC Glucose (Download): (!) 277 (05/03/17 0733) Radiology Review: Pertinent radiology reviewed. * Michell Crespo MD - 05/04/2017 8:27 AM CDT Formatting of this note may be different from the original. Neurosurgery Progress Note Admission Date: 04/30/2017 LOS: 4 days S: No acute events noted. Patient states she is doing well and denies any pain this morning. She denies any new symptoms. Patient and family updated with plan. O: Vital Signs: 24 Hour Range BP: (102-177)/(54-72) Temp: [36.5 C (97.7 F)-37.1 C (98.8 F)] Pulse: [61-69] Respirations: [10 PER MINUTE-24 PER MINUTE] SpO2: [92 %-100 %] O2 Delivery: None (Room Air) Physical Exam: Alert and oriented to person and date but not place. NAD Left eye without light perception, otherwise CN II-XII intact. Sensation to light touch intact throughout Moving all extremities, strength 5/5 throughout, deferred LLE strength exam due to recent femur fracture. Finger to nose dysmetria on exam. A/P: 61 y.o. female with PMH of AML s/p HSCT and recent MRI with multiple enhancing lesions, work-up ongoing for leukemia vs infection. Principal Problem: Nasal cavity mass Active Problems: Retinal edema right eye 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HCC) Subarachnoid bleed (HCC) Lesion of cerebellum Closed displaced intertrochanteric fracture of left femur (HCC) -Continue to follow. -No plans for neurosurgical biopsy, given low expected yield of frontal lesions and great risk of surgical complications of cerebellar lesions -Follow up large volume LP cytology and other studies per ID. - Cell counts w/diff - 685 RBC, 6 WBC (93% lymphocytes, 7% monocytes) - CSF glucose, protein - glucose 58, protein 52 -ENT following: left maxillary sinus mass showed submucosal hematoma -Recommend: BID saline sinus rinses and q2 saline sprays -Ophtho following: continue medications as recommended Prophylaxis: A) GI: PPI B) Lines: No C) Urinary Catheter: No D) Antibiotic Usage: No E) VTE: Mechanical prophylaxis; Sequential compression device F) Restraints: Patient assessed for need for restraints. Please call [phone] with any questions. Michell Crespo MD * Kandice Montelongo MD - 05/04/2017 8:01 AM CDT Formatting of this note may be different from the original. ATTESTATION I personally performed the omalley portions of the E/M visit, discussed case with resident and concur with resident documentation of history, physical exam, assessment, and treatment plan unless otherwise noted. See op note for pics Staff name: Kandice Montelongo MD Date: 05/04/2017 General Progress Note Name: Donna Felicianomickie Wilde Today's Date: 05/04/2017 Admission Date: 04/30/2017 LOS: 4 days Assessment/Plan: Principal Problem: Nasal cavity mass Active Problems: Retinal edema right eye 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HCC) Subarachnoid bleed (HCC) Lesion of cerebellum Closed displaced intertrochanteric fracture of left femur (HCC) Donna Wilde is a 61 y.o. female with a history of AML s/p HSCT who was admitted after recent fall, found to have new brain lesions. During workup discovered what appears to be left maxillary sinus mass. -biopsy appeared to be submucosal hematoma in maxillary sinus - recommend bid saline sinus rinses and q2 saline sprays - recommend patient to call [phone] to schedule follow up for [address] Montelongo - please call with further questions Ray Mendez [phone] Subjective Donna Wilde is a 61 y.o. female. Patient LYDIA overnight. Did get LP this AM. Very tired, denies current numbness of cheek, did have some numbness of sorts after her fall. Medications Scheduled Meds: acyclovir (ZOVIRAX) tablet 800 mg 800 mg Oral BID brimonidine (ALPHAGAN P) 0.15 % ophthalmic solution 1 Drop 1 Drop Left Eye TID carboxymethylcellulose (REFRESH PLUS) 0.5 % ophthalmic solution 1 Drop 1 Drop Both Eyes QID clonazePAM (KLONOPIN) tablet 0.25 mg 0.25 mg Oral QHS cyclopentolate (CYCLODRYL) 1 % ophthalmic solution 1 Drop 1 Drop Left Eye TID enoxaparin (LOVENOX) syringe 40 mg 40 mg Subcutaneous Q24H* ergocalciferol (VITAMIN D-2) capsule 50,000 Units 50,000 Units Oral Q7 Days insulin aspart (NOVOLOG FLEXPEN) injection PEN 0-14 Units 0-14 Units Subcutaneous ACHS insulin glargine (LANTUS SOLOSTAR) injection PEN 10 Units 10 Units Subcutaneous QHS levothyroxine (SYNTHROID) tablet 50 mcg 50 mcg Oral QDAY 30 min before breakfast melatonin tablet 3 mg 3 mg Oral QHS neomycin/polymyxin/dexamethasone (MAXITROL) ophthalmic suspension 1 Drop 1 Drop Left Eye BID penicillin V potassium (VEETID) tablet 750 mg 750 mg Oral BID [START ON 05/05/2017] pentamidine (NEBUPENT) nebulizer solution 300 mg 300 mg Inhalation Q28 Days polyethylene glycol 3350 (MIRALAX) packet 17 g 17 g Oral QDAY prednisolone acetate (PRED FORTE) 1 % ophthalmic suspension 1 Drop 1 Drop Left Eye QID propranolol (INDERAL) tablet 20 mg 20 mg Oral TID senna/docusate (SENOKOT-S) tablet 1 Tab 1 Tab Oral BID traZODone (DESYREL) tablet 25 mg 25 mg Oral QHS Continuous Infusions: sodium chloride 0.9 % infusion 20 mL/hr at 05/03/17 1301 sodium chloride 0.9 % infusion 75 mL/hr at 05/04/17 0617 PRN and Respiratory Meds:acetaminophen Q4H PRN, alteplase PRN (Mixing Plant Operator from Rx) , amitriptyline/gabapentin/emu oil(#) Q8H PRN, benzonatate TID PRN, fentaNYL citrate PF Q2H PRN, magnesium sulfate 4 g/50 mL PRN, mineral oil/white petrolatum TID PRN, oxyCODONE Q4H PRN, potassium chloride PRN (Mixing Plant Operator from Rx) , prochlorperazine Q6H PRN OR prochlorperazine Q6H PRN Review of Systems: All other systems reviewed and are negative. Objective: Vital Signs: Last Filed Vital Signs: 24 Hour Range BP: 143/61 (05/04 745) Temp: 36.9 C (98.4 F) (05/04 745) Pulse: 61 (05/04 745) Respirations: 14 PER MINUTE (05/04 745) SpO2: 99 % (05/04 745) O2 Delivery: None (Room Air) (05/04 745) SpO2 Pulse: 66 (05/03 1615) BP: (102-177)/(54-74) Temp: [36.5 C (97.7 F)-37.1 C (98.8 F)] Pulse: [61-69] Respirations: [10 PER MINUTE-24 PER MINUTE] SpO2: [92 %-100 %] O2 Delivery: None (Room Air) Intensity Pain Scale 0-10 (Pain 1): 0 (05/03/17 2030) Vitals: 05/02/17 0640 05/03/17 0339 05/04/17 0324 Weight: 58.9 kg (129 lb 13.6 oz) 59.6 kg (131 lb 6.3 oz) 58.8 kg (129 lb 10.1 oz ) Intake/Output Summary: (Last 24 hours) Intake/Output Summary (Last 24 hours) at 05/04/17 0801 Last data filed at 05/04/17 0630 Gross per 24 hour Intake 2623 ml Output 0 ml Net 2623 ml Stool Occurrence: 0 Physical Exam Physical Exam: General appearance: Donna is in no distress and is alert and oriented, ecchymosis of the face Communication ability: communicates by voice, normal quality Neuro: V2 is weak on the L Head: normocephalic, no lacerations or lesions, there is ecchymosis scattered across L side of face/head, no tenderness to palpation over facial bones Eyes: Some scleral injection, with some gaze deviation External ear: normal, no lesions or deformities Otoscopic: R canal with diffuse cerumen impaction, L canal clear, tympanic membranes intact, TM opaque without any evidence of fluid, no bulging or retraction Hearing: grossly intact External nose: normal, no lesions or deformities, nares patent with no drainage Nasal: mucosa and septum normal Oral cavity: poor dentition with previous repair, normal occlusion, no gingival inflammation, no lip or mucosal lesions, no palate mobility Oropharynx: tongue normal, posterior pharynx without erythema or exudate, no old or active bleeding Neck: supple, no masses, trachea midline, No cervical adenopathy, thyromegaly, or parotid masses Respiratory: normal respiratory effort Lab Review 24-hour labs: Results for orders placed or performed during the hospital encounter of (from the past 24 hour(s)) GLUCOSE-CSF Collection Time: 05/03/17 8:29 AM Result Value Ref Range Glucose,CSF 58 40 - 75 MG/DL Xanthrochromia,CSF SMALL BLOOD PRESENT TOTAL PROTEIN-CSF Collection Time: 05/03/17 8:29 AM Result Value Ref Range Total Protein,CSF 52 (H) 15 - 45 MG/DL CELL COUNT W/DIFF-CSF Collection Time: 05/03/17 8:29 AM Result Value Ref Range Cell Count Tube,CSF TUBE 4 White Blood Cells,CSF 6 (H) <5 /UL Red Blood Cells,CSF 685 /UL Lymphocytes, CSF 93 % Monocyte/Hisotocyte, CSF 7 % Clarity,CSF SLT BLOODY Path Interpretation, CSF Pathologist Signature CULTURE-CSF W/SENSITIVITY Collection Time: 05/03/17 8:29 AM Result Value Ref Range Battery Name CSF CULTURE Specimen Description CSF Special Requests NONE Direct Gram Stain RARE NEUTROPHILS MODERATE RBC'S NO ORGANISMS SEEN Culture NO GROWTH 1 DAY Report Status LEUKEMIA/LYMPHOMA PANEL FLUID/TISSUE Collection Time: 05/03/17 8:29 AM Result Value Ref Range Leuk/Lymph Interpretation SEE PATHOLOGY REPORT Specimen/LLM CSF CSF TUBE VOLUMES Collection Time: 05/03/17 8:29 AM Result Value Ref Range CSF Tube 1 3.0 mL CSF Tube 2 3.0 mL CSF Tube 3 3.0 mL CSF Tube 4 3.0 mL GRAM STAIN Collection Time: 05/03/17 8:29 AM Result Value Ref Range Battery Name GRAM STAIN Specimen Description CSF Special Requests NONE Gram Stain RARE NEUTROPHILS MODERATE RBC'S NO ORGANISMS SEEN Report Status FINAL 05/03/2017 PTT (APTT) Collection Time: 05/03/17 9:24 AM Result Value Ref Range APTT 28.7 24.0 - 40.0 SEC PROTIME INR (PT) Collection Time: 05/03/17 9:24 AM Result Value Ref Range INR 1.0 0.8 - 1.2 POC GLUCOSE Collection Time: 05/03/17 9:41 AM Result Value Ref Range Glucose, POC 79 70 - 100 MG/DL TYPE & CROSSMATCH Collection Time: 05/03/17 11:55 AM Result Value Ref Range Units Ordered 2 Crossmatch Expires 05/06/2017 Record Check FOUND ABO/RH(D) O POS Antibody Screen NEG Patient has a history of a clinically significant antibody. Unit Number [id number] Blood Component Type RBC,ADSOL,LEUKO REDUCED,IRRADIATED,1ST CONT. Unit Division 0 Status OF Unit ALLOCATED Transfusion Status OK TO TRANSFUSE Crossmatch Result COMPATIBLE, GEL Antigen Type (Units) Jk(a) antigen NEG, Unit Number [id number] Blood Component Type RBC,ADSOL,LEUKO REDUCED,IRRADIATED Unit Division 0 Status OF Unit ALLOCATED Transfusion Status OK TO TRANSFUSE Crossmatch Result COMPATIBLE, GEL Antigen Type (Units) Jk(a) antigen NEG, Unit Number [id number] Blood Component Type RBC,ADSOL,LEUKO REDUCED,IRRADIATED Unit Division 0 Status OF Unit REL FROM ALLOC Transfusion Status DO NOT ISSUE FOR TRANSFUSION Crossmatch Result NOT DONE Antigen Type (Units) Jk(a) antigen POS, Unit Number [id number] Blood Component Type RBC,ADSOL,LEUKO REDUCED,IRRADIATED Unit Division 0 Status OF Unit REL FROM ALLOC Transfusion Status DO NOT ISSUE FOR TRANSFUSION Crossmatch Result NOT DONE Antigen Type (Units) Jk(a) antigen POS, Unit Number [id number] Blood Component Type RBC,ADSOL,LEUKO REDUCED,IRRADIATED Unit Division 0 Status OF Unit REL FROM ALLOC Transfusion Status DO NOT ISSUE FOR TRANSFUSION Crossmatch Result NOT DONE Antigen Type (Units) Jk(a) antigen POS, Unit Number [id number] Blood Component Type RBC,ADSOL,LEUKO REDUCED,IRRADIATED Unit Division 0 Status OF Unit REL FROM ALLOC Transfusion Status DO NOT ISSUE FOR TRANSFUSION Crossmatch Result NOT DONE Antigen Type (Units) Jk(a) antigen POS, Unit Number [id number] Blood Component Type RBC,ADSOL,LEUKO REDUCED,IRRADIATED Unit Division 0 Status OF Unit REL FROM ALLOC Transfusion Status DO NOT ISSUE FOR TRANSFUSION Crossmatch Result NOT DONE Antigen Type (Units) Jk(a) antigen POS, Unit Number [id number] Blood Component Type RBC,ADSOL,LEUKO REDUCED,IRRADIATED Unit Division 0 Status OF Unit REL FROM ALLOC Transfusion Status DO NOT ISSUE FOR TRANSFUSION Crossmatch Result NOT DONE Antigen Type (Units) Jk(a) antigen POS, POC GLUCOSE Collection Time: 05/03/17 12:38 PM Result Value Ref Range Glucose, POC 79 70 - 100 MG/DL CULTURE-WOUND/TISSUE/FLUID(AEROBIC ONLY)W/SENSITIVITY Collection Time: 05/03/17 2:53 PM Result Value Ref Range Battery Name ROUTINE CULTURE Specimen Description FLOCKED SWAB LEFT MAXILLARY SINUS Special Requests NONE Direct Gram Stain NO NEUTROPHILS SEEN NO ORGANISMS SEEN Culture Report Status GRAM STAIN Collection Time: 05/03/17 2:53 PM Result Value Ref Range Battery Name GRAM STAIN Specimen Description FLOCKED SWAB LEFT MAXILLARY SINUS Special Requests NONE Gram Stain NO NEUTROPHILS SEEN NO ORGANISMS SEEN Report Status FINAL 05/03/2017 CULTURE-WOUND/TISSUE/FLUID(AEROBIC ONLY)W/SENSITIVITY Collection Time: 05/03/17 3:08 PM Result Value Ref Range Battery Name ROUTINE CULTURE Specimen Description TISSUE LEFT MAXILLARY SINUS Special Requests NONE Direct Gram Stain NO NEUTROPHILS SEEN FEW COLUMNAR EPITHELIAL CELLS NO ORGANISMS SEEN Culture Report Status GRAM STAIN Collection Time: 05/03/17 3:08 PM Result Value Ref Range Battery Name GRAM STAIN Specimen Description TISSUE LEFT MAXILLARY SINUS Special Requests NONE Gram Stain NO NEUTROPHILS SEEN FEW COLUMNAR EPITHELIAL CELLS NO ORGANISMS SEEN Report Status FINAL 05/03/2017 POC GLUCOSE Collection Time: 05/03/17 4:14 PM Result Value Ref Range Glucose, POC 99 70 - 100 MG/DL POC GLUCOSE Collection Time: 05/03/17 7:01 PM Result Value Ref Range Glucose, POC 173 (H) 70 - 100 MG/DL POC GLUCOSE Collection Time: 05/03/17 9:26 PM Result Value Ref Range Glucose, POC 277 (H) 70 - 100 MG/DL MAGNESIUM Collection Time: 05/04/17 6:46 AM Result Value Ref Range Magnesium 2.2 1.6 - 2.6 mg/dL CBC AND DIFF Collection Time: 05/04/17 6:46 AM Result Value Ref Range White Blood Cells 3.7 (L) 4.5 - 11.0 K/UL RBC 2.21 (L) 4.0 - 5.0 M/UL Hemoglobin 8.2 (L) 12.0 - 15.0 GM/DL Hematocrit 23.1 (L) 36 - 45 % MCV 104.2 (H) 80 - 100 FL MCH 36.9 (H) 26 - 34 PG MCHC 35.4 32.0 - 36.0 G/DL RDW 19.6 (H) 11 - 15 % Platelet Count 102 (L) 150 - 400 K/UL MPV 6.4 (L) 7 - 11 FL Neutrophils 47 41 - 77 % Lymphocytes 36 24 - 44 % Monocytes 15 (H) 4 - 12 % Eosinophils 2 0 - 5 % Basophils 0 0 - 2 % Absolute Neutrophil Count 1.70 (L) 1.8 - 7.0 K/UL Absolute Lymph Count 1.40 1.0 - 4.8 K/UL Absolute Monocyte Count 0.60 0 - 0.80 K/UL Absolute Eosinophil Count 0.10 0 - 0.45 K/UL Absolute Basophil Count 0.00 0 - 0.20 K/UL COMPREHENSIVE METABOLIC PANEL Collection Time: 05/04/17 6:46 AM Result Value Ref Range Sodium 135 (L) 137 - 147 MMOL/L Potassium 3.8 3.5 - 5.1 MMOL/L Chloride 108 98 - 110 MMOL/L Glucose 77 70 - 100 MG/DL Blood Urea Nitrogen 16 7 - 25 MG/DL Creatinine 0.73 0.4 - 1.00 MG/DL Calcium 9.3 8.5 - 10.6 MG/DL Total Protein 5.2 (L) 6.0 - 8.0 G/DL Total Bilirubin 0.6 0.3 - 1.2 MG/DL Albumin 2.6 (L) 3.5 - 5.0 G/DL Alk Phosphatase 180 (H) 25 - 110 U/L AST (SGOT) 30 7 - 40 U/L CO2 23 21 - 30 MMOL/L ALT (SGPT) 13 7 - 56 U/L Anion Gap 4 3 - 12 eGFR Non >60 >60 mL/min eGFR >60 >60 mL/min PHOSPHORUS Collection Time: 05/04/17 6:46 AM Result Value Ref Range Phosphorus 3.9 2.0 - 4.0 MG/DL Point of Care Testing (Last 24 hours) Glucose: 77 (05/04/17 0646) POC Glucose (Download): (!) 277 (05/03/172125) Radiology and other Diagnostics Review: Pertinent radiology reviewed. Zackery Mendez MD Pager [phone] * Parisa Milian MD - 05/04/2017 7:58 AM CDT Formatting of this note may be different from the original. Infectious Disease Progress Note Name: Donna Wilde Today's Date: 05/04/2017 Assessment: Right cerebellar enhancing lesion and numerous smaller [...] done by IR on 04/12 with 11 WBC, 94% lymphocytes, protein 68, glucose 70 - Toxoplasma CSF PCR negative 04/12 - CSF culture negative 04/12 - Crypto serum Ag negative 04/20 - Galactomannan negative 04/19 - Fungitell negative 04/19 - Histo, crypto, coccidioides workup negative 04/20 - 04/18 staph epidermidis + blood culture, contaminant - Workup this admission: - Toxoplasma IgG positive 05/01 - Cryptococcal serum Ag negative 05/01 - Fungitell negative 05/01 - Galactomannan 05/01 [...] s/p HSCT 02/2016 Hx GVHD Hx pancytopenia Recommendations: - Ophthalmology, neurosurgery, ENT following - LP done by IR 05/03, f/u studies - CSF AFB culture - CSF fungal culture - CSF bacterial culture - Cell counts w/ diff - 685 RBC, 6 WBC (93% lymphocytes, 7% monocytes) - CSF glucose, protein - glucose 58, protein 52 - CSF Toxoplasma PCR - CSF EBV PCR - can help to evaluate for primary DISC INSPECTOR lymphoma as an etiology - CSF galactomannan - CSF histo Ag - S/p ENT biopsy of left maxillary sinus 05/03, culture/AFB/fungal culture pending, pathology pending - F/u T spot - Noted toxoplasma IgG positive; toxoplasma IgM is not reliable for diagnostic purposes. Would recommend to start empiric treatment for toxoplasma while we await the above studies. Dosing is based on the patient's weight < 60kg. - Start sulfadiazine 1000mg PO four times daily - Start pyrimethamine 200mg PO loading dose followed by 50mg PO daily - Start leucovorin 25mg daily - Follow up pending studies: histo serum ag (negative during previous admission) , blood cultures, fungal blood cultures ID will follow. Staffed with attending, Dr. Milian. I have personally seen and examined the patient, and reviewed all diagnostic tests available. I have discussed the case with Dr. Boswell and agree with her assessment and recommendations. Changes to the text were made where appropriate. No sig changes. Toxo IgG positive. Mass possible submucosal hematoma. Discussed with Dr. Mcallister. Will start Toxo therapy. Will follow. Mrs. Wilde has complex disease requiring complex medical decision making for sinus mass, brain lesions, immunosuppresison. I reviewed the chart and interviewed and examined the patient and formulated the plan as above. Parisa Milian MD Infectious Diseases Faculty Pager: [phone] Interval History Donna Wilde is a 61 y.o. 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 Hx of GVHD , off steroids since 11/2016. Recent admission with fall, subarachnoid hemorrhage , left hip fracture, and fever. Recent hx panuveitis, suspicious for infection. Now with enhancing lesions in the R cerebellum and scattered intracranial and maxillary/orbital lesions as well. Consulted for further workup. Afebrile, VSS. Patient's at bedside. She has been feeling relatively well with no new symptoms. Denies nausea, vomiting, diarrhea, chest pain, or dyspnea. Tolerated L maxillary sinus biopsy yesterday without evident complications. Antimicrobial Start date End date Acyclovir prophylaxis 04/30 Penicillin V prophylaxis 04/30 Pentamidine prophylaxis To be given 05/05 Estimated Creatinine Clearance: 76.1 mL/min (based on Cr of 0.73). Medications Scheduled Meds: acyclovir (ZOVIRAX) tablet 800 mg 800 mg Oral BID brimonidine (ALPHAGAN P) 0.15 % ophthalmic solution 1 Drop 1 Drop Left Eye TID carboxymethylcellulose (REFRESH PLUS) 0.5 % ophthalmic solution 1 Drop 1 Drop Both Eyes QID clonazePAM (KLONOPIN) tablet 0.25 mg 0.25 mg Oral QHS cyclopentolate (CYCLODRYL) 1 % ophthalmic solution 1 Drop 1 Drop Left Eye TID enoxaparin (LOVENOX) syringe 40 mg 40 mg Subcutaneous Q24H* ergocalciferol (VITAMIN D-2) capsule 50,000 Units 50,000 Units Oral Q7 Days insulin aspart (NOVOLOG FLEXPEN) injection PEN 0-14 Units 0-14 Units Subcutaneous ACHS insulin glargine (LANTUS SOLOSTAR) injection PEN 10 Units 10 Units Subcutaneous QHS levothyroxine (SYNTHROID) tablet 50 mcg 50 mcg Oral QDAY 30 min before breakfast melatonin tablet 3 mg 3 mg Oral QHS neomycin/polymyxin/dexamethasone (MAXITROL) ophthalmic suspension 1 Drop 1 Drop Left Eye BID penicillin V potassium (VEETID) tablet 750 mg 750 mg Oral BID [START ON 05/05/2017] pentamidine (NEBUPENT) nebulizer solution 300 mg 300 mg Inhalation Q28 Days polyethylene glycol 3350 (MIRALAX) packet 17 g 17 g Oral QDAY prednisolone acetate (PRED FORTE) 1 % ophthalmic suspension 1 Drop 1 Drop Left Eye QID propranolol (INDERAL) tablet 20 mg 20 mg Oral TID senna/docusate (SENOKOT-S) tablet 1 Tab 1 Tab Oral BID traZODone (DESYREL) tablet 25 mg 25 mg Oral QHS Continuous Infusions: sodium chloride 0.9 % infusion 20 mL/hr at 05/03/17 1301 sodium chloride 0.9 % infusion 75 mL/hr at 05/04/17 0617 PRN and Respiratory Meds:acetaminophen Q4H PRN, alteplase PRN (Mixing Plant Operator from Rx) , amitriptyline/gabapentin/emu oil(#) Q8H PRN, benzonatate TID PRN, fentaNYL citrate PF Q2H PRN, magnesium sulfate 4 g/50 mL PRN, mineral oil/white petrolatum TID PRN, oxyCODONE Q4H PRN, potassium chloride PRN (Mixing Plant Operator from Rx) , prochlorperazine Q6H PRN OR prochlorperazine Q6H PRN Physical Examination Vital Signs: Last Vital Signs: 24 Hour Range BP: 143/61 (05/04 745) Temp: 36.9 C (98.4 F) (05/04 745) Pulse: 61 (05/04 745) Respirations: 14 PER MINUTE (05/04 745) SpO2: 99 % (05/04 745) O2 Delivery: None (Room Air) (05/04 745) SpO2 Pulse: 66 (05/03 1615) BP: (102-177)/(54-74) Temp: [36.5 C (97.7 F)-37.1 C (98.8 F)] Pulse: [61-69] Respirations: [10 PER MINUTE-24 PER MINUTE] SpO2: [92 %-100 %] O2 Delivery: None (Room Air) General appearance: Alert, oriented. NAD. Appears older than stated age. Thin, frail. HENT: Mucus membranes moist Eyes: Conj nl. Left pupil nonreactive. Neck: Supple, no lymphadenopathy Lungs: No wheezing, rhonchi, or crackles appreciated. Nonlabored. Heart: Regular rhythm, reg rate, + systolic murmur unchanged, no peripheral edema Abdomen: Soft, non-tender, non-distended, normoactive bowel sounds Ext: No clubbing, cyanosis or edema Skin: Bruising over the left face resolving. No rashes or jaundice. Laboratory Hematology Recent Labs 05/02/17 0551 05/03/17 0513 05/03/17 0924 05/04/17 0646 WBC 3.7* 3.4* -- 3.7* HGB 7.8* 7.9* -- 8.2* HCT 22.8* 22.2* -- 23.1* PLTCT 85* 92* -- 102* PTT -- -- 28.7 -- INR -- -- 1.0 -- Chemistry Recent Labs 05/02/17 0551 05/03/17 0513 05/04/17 0646 NA 135* 135* 135* K 4.7 4.1 3.8 CL 108 108 108 CO2 22 22 23 BUN 16 14 16 CR 0.83 0.63 0.73 GFR >60 >60 >60 GLU 116* 81 77 CA 9.1 8.9 9.3 PO4 -- -- 3.9 ALBUMIN -- -- 2.6* ALKPHOS -- -- 180* AST -- -- 30 ALT -- -- 13 TOTBILI -- -- 0.6 Microbiology, Radiology and other Diagnostics Review Microbiology reviewed. 05/03 maxillary tissue/swab culture - gram stains with no organisms seen Pertinent radiology viewed. CT c/a/p 04/30: IMPRESSION CHEST: 1. Mild cardiomegaly, borderline vascular congestion patchy groundglass opacity suggesting volume overload. Atypical infectious etiology considered less likely. 2. Calcified coronary artery atherosclerosis right disease ABDOMEN AND PELVIS: 1. Interval ORIF of left intertrochanteric and trochanteric fractures with persistent surrounding soft tissue stranding. 2. Mild splenomegaly. 3. Persistent trace dependent pelvic ascites. CT sinus 04/30: IMPRESSION 1. Right mastoiditis. 2. Mild maxillary sinus disease greater on the left. 3. Small periapical abscess involving left maxillary premolar. 4. Stable enhancing right cerebellar lesion. Irma Boswell DO Pager [phone] Infectious Diseases Fellow, PGY4 * Aaliyah Yang RN - 05/04/2017 5:48 AM CDT Shift: 7p-7a NEWS Score: 0, 1, 0 Pain: Pt denies pain. Nutrition: Pt is on a neutropenic diet. Fair appetite. GI/: Pt's last bowel movement was 05/01. Stool softener given with PM meds. Pt incontinent of urine. No complaints of nausea. Family: at bedside throughout shift. Last Shower: Bed bath 05/03 New Events or Follow-up: -no acute events overnight * Arianna Walker, RD - 05/03/2017 5:12 PM CDT CLINICAL NUTRITION Chart/labs reviewed, patient is day 2 at potential nutrition risk, and consult noted for nutrition assessment. She has been off unit to OR this afternoon. Will plan for full assessment tomorrow. Arianna Walker MS, RD, LD *[id number] * Darcy Stephens RN - 05/03/2017 4:00 PM CDT Diamond Driller Kisha Torres at bedside * Bryan Tucker, PT - 05/03/2017 2:50 PM CDT PHYSICAL THERAPY NOTE Patient had lumbar puncture this date with bedrest protocol with bathroom privileges only for 8 hours. Patient also with other test/procedures this afternoon PT will continue to follow and assist as able on Wednesday. Therapist: Bryan Tucker, DPT Date: 05/03/2017 * Lindsay Lucero RN - 05/03/2017 2:[address] Montelongo, page Dr. Guadarrama to see patient. * Loida Beal, OT - 05/03/2017 1:23 PM CDT OCCUPATIONAL THERAPY NO TREATMENT NOTE ATTEMPTED TO SEE PT TODAY. PT OFF UNIT FOR LP AND NOW TO OR. OT WILL F/U . Therapist: Loida Beal, OTL Date: 05/03/2017 * Skylar Almaraz RN - 05/03/2017 1:00 PM CDT Shift: NEWS: 0-0-0 Nutrition: NPO for LP and Left maxillary sinus surgery. Activity: Q2hr turns and brief//chux check. Patient log rolls well in bed. Pain: Pt moans at times but denies pain. GI/: Last BM recorded 05/01. Stool softener and miralax given today. Patient incontinent and saturates brief and chux. CARDIOPULM: WNL SKIN/MS: Bruising from CORRAL BOSS fall. Family: at bedside. Last shower/Linen change: 05/02 Follow up: Pt ended up having a left sinus cavity hematoma, not a mass. * Lindsay Lucero RN - 05/03/2017 12:[address] Bains * Lindsay Lucero RN - 05/03/2017 12:[address] Alcantar re: FSBS 79. Patient feels "sleepy" Per spouse feels sleepy when FSBS is low. * Lindsay Lucero RN - 05/03/2017 12:50 PM CDT Diamond Driller present * Haile Cleary MD - 05/03/2017 12:43 PM CDT Attempted to see patient, however, patient in the OR for biopsy. Will attempt again later. * Parisa Milian MD - 05/03/2017 11:33 AM CDT Formatting of this note may be different from the original. Infectious Disease Progress Note Name: Donna Wilde Today's Date: 05/03/2017 Assessment: Right cerebellar enhancing lesion and numerous smaller [...] done by IR on 04/12 with 11 WBC, 94% lymphocytes, protein 68, glucose 70 - Toxoplasma CSF PCR negative 04/12 - CSF culture negative 04/12 - Crypto serum Ag negative 04/20 - Galactomannan negative 04/19 - Fungitell negative 04/19 - Histo, crypto, coccidioides workup negative 04/20 - 04/18 staph epidermidis + blood culture, contaminant - Workup this admission: - Toxoplasma IgG positive S/p admission earlier this month, discharged 04/27 to rehab Left intertrochanteric femur fracture s/p cephalomedullary nailing 04/19 Diffuse subarachnoid hemorrhages - CT scans earlier in the month without any evidence of infection Admission 02/2017 with S. 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 Pending CSF studies and maxillary sinus biopsy today. Differential remains broad at this point though she is stable clinically. - Ophthalmology, neurosurgery, ENT following - LP done by IR today 05/03, f/u studies - CSF AFB culture - CSF fungal culture - CSF bacterial culture - Cell counts w/ diff - 685 RBC, 6 WBC (93% lymphocytes, 7% monocytes) - CSF glucose, protein - glucose 58, protein 52 - CSF Toxoplasma PCR - CSF EBV PCR - can help to evaluate for primary DISC INSPECTOR lymphoma as an etiology - CSF galactomannan - CSF histo Ag - ENT to perform biopsy of left maxillary sinus today, f/u results/cultures - F/u T spot - Noted toxoplasma IgG positive; toxoplasma IgM is not reliable for diagnostic purposes. If she declines will have to consider empiric therapy for toxoplasma. Currently stable and afebrile. - Follow up pending studies: cryptococcus ag/histo serum ag/fungitell/ galactomannan (negative during previous admission), blood cultures, fungal blood cultures ID will follow. Staffed with attending, Dr. Milian. I have personally seen and examined the patient, and reviewed all diagnostic tests available. I have discussed the case with Dr. Boswell and agree with her assessment and recommendations. Changes to the text were made where appropriate. To OR today for sinus mass sampling. Toxo IgG positive. Will follow. Mrs. Wilde has complex disease requiring complex medical decision making for sinus mass, brain lesions, immunosuppresison. I reviewed the chart and interviewed and examined the patient and formulated the plan as above. Parisa Milian MD Infectious Diseases Faculty Pager: [phone] Interval History Donna Wilde is a 61 y.o. 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 Hx of GVHD , off steroids since 11/2016. Recent admission with fall, subarachnoid hemorrhage , left hip fracture, and fever. Recent hx panuveitis, suspicious for infection. Now with enhancing lesions in the R cerebellum and scattered intracranial and maxillary/orbital lesions as well. Consulted for further workup. Afebrile, VSS. Patient's at bedside, translates. She has not been having headache. Her vision loss is about the same; still able to see some out of the right eye. Denies nausea, vomiting, diarrhea, chest pain, or dyspnea. S/p LP this morning in IR. ENT planning for biopsy of the maxillary lesion today. Antimicrobial Start date End date Acyclovir prophylaxis 04/30 Penicillin V prophylaxis 04/30 Pentamidine prophylaxis To be given 05/05 Estimated Creatinine Clearance: 80.4 mL/min (based on Cr of 0.63). Medications Scheduled Meds: acyclovir (ZOVIRAX) tablet 800 mg 800 mg Oral BID brimonidine (ALPHAGAN P) 0.15 % ophthalmic solution 1 Drop 1 Drop Left Eye TID carboxymethylcellulose (REFRESH PLUS) 0.5 % ophthalmic solution 1 Drop 1 Drop Both Eyes QID clonazePAM (KLONOPIN) tablet 0.25 mg 0.25 mg Oral QHS cyclopentolate (CYCLODRYL) 1 % ophthalmic solution 1 Drop 1 Drop Left Eye TID enoxaparin (LOVENOX) syringe 40 mg 40 mg Subcutaneous Q24H* ergocalciferol (VITAMIN D-2) capsule 50,000 Units 50,000 Units Oral Q7 Days insulin aspart (NOVOLOG FLEXPEN) injection PEN 0-14 Units 0-14 Units Subcutaneous ACHS insulin glargine (LANTUS SOLOSTAR) injection PEN 10 Units 10 Units Subcutaneous QHS levothyroxine (SYNTHROID) tablet 50 mcg 50 mcg Oral QDAY 30 min before breakfast melatonin tablet 3 mg 3 mg Oral QHS neomycin/polymyxin/dexamethasone (MAXITROL) ophthalmic suspension 1 Drop 1 Drop Left Eye BID penicillin V potassium (VEETID) tablet 750 mg 750 mg Oral BID [START ON 05/05/2017] pentamidine (NEBUPENT) nebulizer solution 300 mg 300 mg Inhalation Q28 Days polyethylene glycol 3350 (MIRALAX) packet 17 g 17 g Oral QDAY prednisolone acetate (PRED FORTE) 1 % ophthalmic suspension 1 Drop 1 Drop Left Eye QID propranolol (INDERAL) tablet 20 mg 20 mg Oral TID senna/docusate (SENOKOT-S) tablet 1 Tab 1 Tab Oral BID traZODone (DESYREL) tablet 25 mg 25 mg Oral QHS Continuous Infusions: sodium chloride 0.9 % infusion 75 mL/hr at 05/02/17 0045 PRN and Respiratory Meds:acetaminophen Q4H PRN, alteplase PRN (Mixing Plant Operator from Rx) , amitriptyline/gabapentin/emu oil(#) Q8H PRN, benzonatate TID PRN, fentaNYL citrate PF Q2H PRN, magnesium sulfate 4 g/50 mL PRN, mineral oil/white petrolatum TID PRN, oxyCODONE Q4H PRN, potassium chloride PRN (Mixing Plant Operator from Rx) , prochlorperazine Q6H PRN OR prochlorperazine Q6H PRN Physical Examination Vital Signs: Last Vital Signs: 24 Hour Range BP: 162/63 (05/03 1131) Temp: 36.6 C (97.9 F) (05/03 113) Pulse: 63 (05/03 113) Respirations: 16 PER MINUTE (05/03 113) SpO2: 100 % (05/03 113) O2 Delivery: None (Room Air) (05/03 113) SpO2 Pulse: 66 (05/03 0854) BP: (127-166)/(54-74) Temp: [36.6 C (97.9 F)-36.9 C (98.4 F)] Pulse: [62-66] Respirations: [10 PER MINUTE-24 PER MINUTE] SpO2: [97 %-100 %] O2 Delivery: None (Room Air) General appearance: Alert, oriented. NAD. Appears older than stated age. HENT: Mucus membranes moist Eyes: Conj nl. No subconjunctival hemorrhages. Left pupil nonreactive. Neck: Supple, no lymphadenopathy Lungs: No wheezing, rhonchi, or crackles appreciated Heart: Regular rhythm, reg rate, + systolic murmur, no peripheral edema Abdomen: Soft, non-tender, non-distended, normoactive bowel sounds, no organomegaly Ext: No clubbing, cyanosis or edema Skin: Bruising over the left face as above. No rashes or jaundice. Laboratory Hematology Recent Labs 05/01/17 0613 05/02/17 0551 05/03/17 0513 05/03/17 0924 WBC 4.7 3.7* 3.4* -- HGB 7.9* 7.8* 7.9* -- HCT 22.4* 22.8* 22.2* -- PLTCT 89* 85* 92* -- PTT -- -- -- 28.7 INR -- -- -- 1.0 Chemistry Recent Labs 05/01/17 0613 05/02/17 0551 05/03/17 0513 NA 137 135* 135* K 3.9 4.7 4.1 CL 109 108 108 CO2 22 22 BUN 17 16 14 CR 0.79 0.83 0.63 GFR >60 >60 >60 GLU 73 116* 81 CA 9.3 9.1 8.9 Microbiology, Radiology and other Diagnostics Review Microbiology reviewed. Pertinent radiology viewed. CT c/a/p 04/30: IMPRESSION CHEST: 1. Mild cardiomegaly, borderline vascular congestion patchy groundglass opacity suggesting volume overload. Atypical infectious etiology considered less likely. 2. Calcified coronary artery atherosclerosis right disease ABDOMEN AND PELVIS: 1. Interval ORIF of left intertrochanteric and trochanteric fractures with persistent surrounding soft tissue stranding. 2. Mild splenomegaly. 3. Persistent trace dependent pelvic ascites. CT sinus 04/30: IMPRESSION 1. Right mastoiditis. 2. Mild maxillary sinus disease greater on the left. 3. Small periapical abscess involving left maxillary premolar. 4. Stable enhancing right cerebellar lesion. Irma Boswell DO Pager [phone] Infectious Diseases Fellow, PGY4 * Edward Mcallister DO - 05/03/2017 9:47 AM CDT Formatting of this note may be different from the original. 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 - 03/05/2017: BMBX in CR both by morphology and by Flow, cytogenetics 46 XX, no abnormalities - Chimerism 03/05/2017: is 100% donor donor DISC INSPECTOR: - MRINew brain lesion on MRI 04/29: concerning for infection or malignancy. "Enhancing nodular medial right cerebellar lesion and numerous additional smaller enhancing juxtacortical bilateral cerebral, basal nuclei, and brainstem lesions with mild associated multifocal vasogenic edema likely reflecting leukemia. Opportunistic intracranial infection could appear similar. - No prior history of DISC INSPECTOR malignancy. LP 04/12/17 did not show evidence of leukemia. Plan: 1. CT scans chest abdomen and pelvis: Mild cardiomegaly, borderline vascular congestion patchy groundglass opacity suggesting volume overload. Atypical infectious etiology considered less likely. Abdomen: Interval ORIF of left intertrochanteric and trochanteric fractures with persistent surrounding soft tissue stranding. Mild splenomegaly. Persistent trace dependent pelvic ascites. 2. CT Sinus : Right mastoiditis. Will have instrumentation today by ENT, cult, stains, histo-path. 4. Ophthalmology consultation cont current meds, add pred L eye and cyclopentoate L eye 4. ID recommendations noted/ appreciated- toxoplasma IgG positive. Aspergillus negative, Other tests awaited. 5. Neurosurgery consultation noted/ appreciated: No plans for biopsy at this time. 6. Large volume LP planned this am, 05/03/2017 7. Obtained blood cultures. 3. Neuro/MSK: Traumatic Subarachnoid hemorrhage -s/p fall at home with + LOC -CT head 04/16: Moderate subarachnoid hemorrhage scattered throughout the bilateral hemispheric sulci >decreased propranolol to 15mg TID for neuro storming, will wean as tolerated Musculoskeletal/ Orthopedic Injuries- -T11 compression fractureduring her fall that has remained stable during this admission -displaced left intertrochanteric femur fractureand required surgery on 2016 for stabilization -Currently WBAT for LLE. Will request ortho to follow her. -Consult PT/OT 4. Pain control: On low dose oxycodone, pain controlled with oxycodone 5. Eyes: - Panuveitis and NAOIN, vision loss, left eye - Continue brimonidine and maxitrol - She has no light perception in the left eye, since early 03/2017 - Ophthalmology opinion as above Heme: - Anemia and thrombocytopenia, stable. Thrombocytopenia improving since orthopedic surgery. - Lovenox for DVT prophylaxis. FEN/Renal: - Renal function and electrolytes stable. - Replace per BMT replacement protocol, she is high goal replacement - Malnourished. Dietary consult. No edema ID: Prophylasis: PenVK, Acyclovir, pentamidine Fungus high on diff dx, add empiric Cresemba pending cult and stains. GI: Tolerating regular diet Endo: BG management by endocrine, on long and short acting insulin. Also hypothyroid on Synthroid Psych: Low dose klonopin and trazodone at bedtime GvHD Staging/Grading: Chronic GvHD present oral lichen planus. Subjective: Donna Wilde is a 61 y.o. female Headaches decreased. Cannot see from L eye. Review of Systems: Constitutional: fatigue, malaise, no fevers HENT: Bruising on left half of face, improving, No congestion, dental problem, ear discharge. Ear pain, tinnitus, facial swelling, mouth sores, postnasal discharge, rhinorrhea, sinus pressure, sore throat, trouble swallowing, or voice change Eyes: Decreased vision/ loss of vision left eye, No eye discharge, redness, pain , photophobia CVS: No chest pain, edema, or palpitations Respiratory: No shortness of breath, wheezing, cough, hemoptysis, or chest tightness Abdomen: No abdominal pain, distension, blood in stool, hematemesis, nausea, vomiting, diarrhea, constipation, or rectal pain : No dysuria, flank pain, frequency, hematuria, urgency MSK: Pain left lower extremity, no back pain, joint swelling, myalgias, neck pain or stiffness Endocrine: No cold/ heat intolerance, polyuria, polydipsia, or polyphagia asthenia Dermatology: Bruising left side of face, No pallor, rash, wound, or color changes Neurology: + headaches, no dizziness, seizures, speech difficulty, weakness, tremors, light headedness, or syncope. Hematologic: No swelling, or adenopathy Psych: increased sleepiness, no behavior problem, confusion, mood changes, hallucinations, nervous/ anxiety, or suicidal ideation. Objective: Medications: Scheduled Meds: acyclovir (ZOVIRAX) tablet 800 mg 800 mg Oral BID brimonidine (ALPHAGAN P) 0.15 % ophthalmic solution 1 Drop 1 Drop Left Eye TID carboxymethylcellulose (REFRESH PLUS) 0.5 % ophthalmic solution 1 Drop 1 Drop Both Eyes QID clonazePAM (KLONOPIN) tablet 0.25 mg 0.25 mg Oral QHS cyclopentolate (CYCLODRYL) 1 % ophthalmic solution 1 Drop 1 Drop Left Eye TID enoxaparin (LOVENOX) syringe 40 mg 40 mg Subcutaneous Q24H* ergocalciferol (VITAMIN D-2) capsule 50,000 Units 50,000 Units Oral Q7 Days insulin aspart (NOVOLOG FLEXPEN) injection PEN 0-14 Units 0-14 Units Subcutaneous ACHS insulin glargine (LANTUS SOLOSTAR) injection PEN 10 Units 10 Units Subcutaneous QHS levothyroxine (SYNTHROID) tablet 50 mcg 50 mcg Oral QDAY 30 min before breakfast melatonin tablet 3 mg 3 mg Oral QHS neomycin/polymyxin/dexamethasone (MAXITROL) ophthalmic suspension 1 Drop 1 Drop Left Eye BID penicillin V potassium (VEETID) tablet 750 mg 750 mg Oral BID [START ON 05/05/2017] pentamidine (NEBUPENT) nebulizer solution 300 mg 300 mg Inhalation Q28 Days polyethylene glycol 3350 (MIRALAX) packet 17 g 17 g Oral QDAY prednisolone acetate (PRED FORTE) 1 % ophthalmic suspension 1 Drop 1 Drop Left Eye QID propranolol (INDERAL) tablet 20 mg 20 mg Oral TID senna/docusate (SENOKOT-S) tablet 1 Tab 1 Tab Oral BID traZODone (DESYREL) tablet 25 mg 25 mg Oral QHS Continuous Infusions: sodium chloride 0.9 % infusion 75 mL/hr at 05/02/17 0045 PRN and Respiratory Meds:acetaminophen Q4H PRN, alteplase PRN (Mixing Plant Operator from Rx) , amitriptyline/gabapentin/emu oil(#) Q8H PRN, benzonatate TID PRN, fentaNYL citrate PF Q2H PRN, magnesium sulfate 4 g/50 mL PRN, mineral oil/white petrolatum TID PRN, oxyCODONE Q4H PRN, potassium chloride PRN (Mixing Plant Operator from Rx) , prochlorperazine Q6H PRN OR prochlorperazine Q6H PRN Vital Signs: Last Filed Vital Signs: 24 Hour Range BP: 149/69 (05/03 0845) Temp: 36.9 C (98.4 F) (05/03 0756) Pulse: 63 (05/03 08) Respirations: 24 PER MINUTE (05/03 08) SpO2: 97 % (05/03 854) O2 Delivery: None (Room Air) (05/03 845) SpO2 Pulse: 66 (05/03 854) BP: (127-166)/(54-74) Temp: [36.6 C (97.9 F)-36.9 C (98.4 F)] Pulse: [62-66] Respirations: [10 PER MINUTE-24 PER MINUTE] SpO2: [97 %-100 %] O2 Delivery: None (Room Air) Intensity Pain Scale 0-10 (Pain 1): (not recorded) Vitals: 04/30/17 1740 05/02/17 0640 05/03/17 0339 Weight: 58.2 kg (128 lb 4.9 oz) 58.9 kg (129 lb 13.6 oz) 59.6 kg (131 lb 6.3 oz ) Intake/Output Summary: (Last 24 hours) Intake/Output Summary (Last 24 hours) at 05/03/17 1003 Last data filed at 05/03/17 0118 Gross per 24 hour Intake 1295 ml Output 0 ml Net 1295 ml Physical Exam: Performance Status (Karnofsky): 40% Disabled, requires special care and assistance General: Alert, cooperative, no distress, appears stated age Head: Normocephalic, without obvious abnormality, atraumatic, large bruising left side of face. Eyes: Conjunctivae/corneas clear. Anisocoria. Loss of vision left eye Throat: Lips, mucosa and tongue normal. Teeth and gums normal Neck: Supple, symmetrical, trachea midline, no adenopathy Lungs: basilar rales bilat Heart: Regular rate and rhythm, S1, S2 normal, no murmur, click rub or gallop Abdomen: Soft, non-tender. Bowel sounds normal. No masses. No organomegaly. Extremities: Recently operated left lower extremity, decreased movements, no swelling or deformity, no cyanosis or trace edema both LE. Skin: Skin color, texture, turgor normal. No rashes or lesions Musculoskeletal: Recently operated left lower extremity, decreased movements, no swelling or deformity Psych: Normal Ventilator/Respiratory Support: none Lab Review: CBC w/Diff Lab Results Component Value Date/Time WBC 3.7 (L) 05/02/2017 05:51 AM RBC 2.19 (L) 05/02/2017 05:51 AM HGB 7.8 (L) 05/02/2017 05:51 AM HCT 22.8 (L) 05/02/2017 05:51 AM MCV 104.2 (H) 05/02/2017 05:51 AM MCH 35.5 (H) 05/02/2017 05:51 AM MCHC 34.0 05/02/2017 05:51 AM RDW 19.9 (H) 05/02/2017 05:51 AM PLTCT 85 (L) 05/02/2017 05:51 AM MPV 7.1 05/02/2017 05:51 AM Lab Results Component Value Date/Time NEUT 54 05/02/2017 05:51 AM ANC 2.00 05/02/2017 05:51 AM LYMA 28 05/02/2017 05:51 AM ALC 1.00 05/02/2017 05:51 AM BRUCE 15 (H) 05/02/2017 05:51 AM AMC 0.50 05/02/2017 05:51 AM EOSA 3 05/02/2017 05:51 AM AEC 0.10 05/02/2017 05:51 AM BASA 0 05/02/2017 05:51 AM ABC 0.00 05/02/2017 05:51 AM Comprehensive Metabolic Profile Lab Results Component Value Date/Time NA 135 (L) 05/03/2017 05:13 AM K 4.1 05/03/2017 05:13 AM CL 108 05/03/2017 05:13 AM CO2 22 05/03/2017 05:13 AM GAP 5 05/03/2017 05:13 AM BUN 14 05/03/2017 05:13 AM CR 0.63 05/03/2017 05:13 AM GLU 81 05/03/2017 05:13 AM Lab Results Component Value Date/Time CA 8.9 05/03/2017 05:13 AM PO4 2.3 04/26/2017 04:58 AM ALBUMIN 2.1 (L) 04/22/2017 04:41 AM TOTPROT 4.3 (L) 04/22/2017 04:41 AM ALKPHOS 107 04/22/2017 04:41 AM AST 19 04/22/2017 04:41 AM ALT 5 (L) 04/22/2017 04:41 AM TOTBILI 0.7 04/22/2017 04:41 AM GFR >60 05/03/2017 05:13 AM GFRAA >60 05/03/2017 05:13 AM Point of Care Testing: (Last 24 hours): Glucose: 81 (05/03/17 0513) POC Glucose (Download): 79 (05/03/17 0941) Radiology Review: Pertinent radiology reviewed. * Michell Crespo MD - 05/03/2017 8:44 AM CDT Formatting of this note may be different from the original. Neurosurgery Progress Note Admission Date: 04/30/2017 LOS: 3 days S: No acute events noted. Patient is reporting left leg pain this morning, discussed PRN pain regimen with patient. Patient is NPO for LP and possible biopsy with ENT today. O: Vital Signs: 24 Hour Range BP: (127-166)/(54-74) Temp: [36.6 C (97.9 F)-36.9 C (98.4 F)] Pulse: [62-66] Respirations: [14 PER MINUTE-18 PER MINUTE] SpO2: [98 %-100 %] O2 Delivery: None (Room Air) Physical Exam: Alert and oriented to person and place but not year. NAD Left eye without light perception otherwise and partial left CN III palsy, otherwise CN II-XII intact. Sensation to light touch intact throughout Moving all extremities, strength 5/5 throughout, deferred LLE strength exam due to recent femur fracture. Finger to nose dysmetria on exam. A/P: 61 y.o. female with PMH of AML s/p HSCT and recent MRI with multiple enhancing lesions, work-up ongoing for leukemia vs infection. Active Problems: Retinal edema right eye 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HCC) Subarachnoid bleed (HCC) Lesion of cerebellum Closed displaced intertrochanteric fracture of left femur (HCC) -Continue to follow. -No plans for neurosurgical biopsy, given low expected yield of frontal lesions and great risk of surgical complications of cerebellar lesions -Follow up large volume LP with studies per ID. -ENT following: plan for biopsy of left maxillary sinus mass -Ophtho following: continue medications as recommended Prophylaxis: A) GI: PPI B) Lines: No C) Urinary Catheter: No D) Antibiotic Usage: No E) VTE: Mechanical prophylaxis; Sequential compression device F) Restraints: Patient assessed for need for restraints. Please call [phone] with any questions. Michell Crespo MD * Aaliyah Yang, RN - 05/03/2017 5:19 AM CDT Shift: 7- NEWS Score: 0, 0, 0 Pain: Pt with complaints of left leg pain. 5 mg PO oxycodone given x1. Nutrition: Pt is on a neutropenic diet. Fair appetite. GI/: Pt's last bowel movement was 05/01. Pt incontinent of urine. Three soiled briefs. No complaints of nausea. Family: at bedside. Last Shower: Bed bath 05/02 New Events or Follow-up: Pt NPO for scheduled lumbar puncture 05/03 * Pratibha Mackey, RN - 05/02/2017 5:44 PM CDT Shift: NEWS Score:0/0/0 Pain: LLE 9/10, with PT. Resolved with fentanyl 25mcg IV X 1 Nutrition: 50-75% of 2 meals GI/: 3 soiled briefs, no BM Activity: Up to chair with PT, did not tolerate well Family: and dtr at bedside Last Shower: complete bed bath New Events or Follow-up: NPO at midnight for LP tomorrow, surveillance BC drawn at 1600 * Bryan Tukcer, PT - 05/02/2017 1:40 PM CDT PHYSICAL THERAPY ASSESSMENT MOBILITY: Mobility Progressive Mobility Level: Active transfer to chair Level of Assistance: Assist X1 Assistive Device: Hand Held Time Tolerated: 11-30 minutes Activity Limited By: Pain SUBJECTIVE: Subjective Significant hospital events: 61 year old female with a past medical history of HTN, HLD, DM, hypothyroidism and AML. Patient was transferred to [facility] from an outside hospital on 04-16-2017 after sustaining a fall at home hitting her head and having a positive loss of consciousness. Patient was found to have a suffered subsequent subarachnoid hemorrhage, possible right cerebellar stroke ( which after further imaging has not been shown to be vasogenic edema surrounding cerebellar lesions - see below), T1 compression fracture and a left femur fracture. Patient is status post a cephalomedullary nailing on 04-19-2017. Patient was discharged from [facility] to rehab facility but was quickly re- admitted to after new areas found in brain MRI on 04/29. PT ordered to assist with mobility while on acute unit. Mental / Cognitive Status: Alert;Oriented;Cooperative Persons Present: Spouse Pain: 9/10;During activity Pain Location: Left;Hip Pain Description: Aching Pain Interventions: Patient agrees to participate in therapy with modifications to session Comments: Patient resting in bed upon entering room. Patient states she is doing okay and agrees to work with PT but says she is very tired. Patient reported no pain initially but after moving from bed to chair states 9/10 and seems to be very uncomfortable. RNElizabeth, in the room to assist with getting pain medication and to observe patient transfers. LE Precautions: LLE WBAT: Weight Bearing as Tolerated Ambulation Assist: Independent Mobility at Household Level with Device Patient Owned Equipment: Roller Walker;Manual Wheelchair;Single Point Cane Home Situation: Lives with Family Type of Home: House Entry Stairs: Ramp In-Home Stairs: No Stairs ROM: ROM LE ROM: Right;WFL;Left;Limited (due to pain but full passive motion) STRENGTH: Strength Overall Strength: Generalized Weakness POSTURE/NEURO: Posture / Neurological Overall Sensation/Proprioception: No Deficits Noted BED MOBILITY/TRANSFERS: Bed Mobility/Transfers Bed Mobility: Supine to Sit: Moderate Assist;Assist with L LE;Assist with Trunk Bed Mobility: Sit to Supine: Minimal Assist;Assist with L LE Transfer Type: Sit to/from Stand Transfer: Assistance Level: To/From;Bed;Moderate Assist Transfer: Assistive Device: Hand Hold Assist Transfers: Type Of Assistance: Verbal Cues;For Safety Considerations Other Transfer Type: Stand Pivot Other Transfer: Assistance Level: To/From;Bed;To;Bed Side Chair;Moderate Assist Other Transfer: Assistive Device: Hand Hold Assist Other Transfer: Type Of Assistance: Verbal Cues;For Safety Considerations End Of Activity Status: In Bed;Nursing Notified;Instructed Patient to Use Call Light BALANCE: Balance Sitting Balance: Static Sitting Balance;Standby Assist Standing Balance: Static Standing Balance;Minimal Assist GAIT: Gait Comments: Will work on ambulation next visit. ACTIVITY/EXERCISE: Activity / Exercise Comments: Will work on basic strengthening exercises next visit. EDUCATION: Education Persons Educated: Patient Patient Barriers To Learning: Language Barrier Teaching Methods: Verbal Instruction Patient Response: Verbalized Understanding Topics: Plan/Goals of PT Interventions;Use of Assistive Device/Orthosis; Mobility Progression;Exercise Program;Safety Awareness;Up with Assist Only; Importance of Increasing Activity ASSESSMENT/PROGRESS: Assessment/Progress Impaired Mobility Due To: Pain;Medical Status Limitation Assessment/Progress: Should Improve w/ Continued PT Comments: Patient with increased pain today with mobility. Patient also had not had any pain medication yet today. A routine pain management schedule may be necessary to allow for proper mobility training with patient. G-Codes: Mobility [id number] Current Status: 40-59% Impairment [id number] Goal Status: 20-39% Impairment Based on above evaluation and clinical judgment. GOALS: Goals Goal Formulation: With Patient Time For Goal Achievement: 7 days Pt Will Go Supine To/From Sit: w/ Stand By Assist Pt Will Transfer Bed/Chair: w/ Minimal Assist Pt Will Transfer Sit to Stand: w/ Minimal Assist Pt Will Ambulate: 31-50 Feet, w/ Walker, w/ Minimal Assist PLAN: Plan Treatment Interventions: Mobility Training;Strengthening;Balance Activities; Coordination Training;Endurance Training Plan Frequency: 5 Days per Week Comments: PT to continue to work on basic strengthening exercises. Will also work on safe transfers and ambulation. RECOMMENDATIONS: PT Discharge Recommendations PT Discharge Recommendations: Inpatient Setting;to address deficits, maximize function and improve safety Equipment Recommendations: Patient owns necessary equipment Therapist: Bryan Tucker DPT Date: 05/02/2017 * Varun Thornton MD - 05/02/2017 6:51 AM CDT Formatting of this note may be different from the original. 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 - 03/05/2017: BMBX in CR both by morphology and by Flow, cytogenetics 46 XX, no abnormalities - Chimerism 03/05/2017: is 100% donor donor DISC INSPECTOR: - MRINew brain lesion on MRI 04/29: concerning for infection or malignancy. "Enhancing nodular medial right cerebellar lesion and numerous additional smaller enhancing juxtacortical bilateral cerebral, basal nuclei, and brainstem lesions with mild associated multifocal vasogenic edema likely reflecting leukemia. Opportunistic intracranial infection could appear similar. - No prior history of DISC INSPECTOR malignancy. LP 04/12/17 did not show evidence of leukemia. Plan: 1. CT scans chest abdomen and pelvis: Mild cardiomegaly, borderline vascular congestion patchy groundglass opacity suggesting volume overload. Atypical infectious etiology considered less likely. Abdomen: Interval ORIF of left intertrochanteric and trochanteric fractures with persistent surrounding soft tissue stranding. Mild splenomegaly. Persistent trace dependent pelvic ascites. 2. CT Sinus : Right mastoiditis. Mild maxillary sinus disease greater on the left.Small periapical abscess involving left maxillary premolar.Stable enhancing right cerebellar lesion. 3. Continue to follow Neurology recommendations- will consult them again 4. Ophthalmology consultation awaited 4. ID recommendations noted/ appreciated- toxoplasma IgG positive. Aspergillus negative, Other tests awaited. 5. Neurosurgery consultation noted/ appreciated: No plans for biopsy at this time. Expected yield of frontal lesions would be low given size/location and cerebellar lesion imparts greater surgical risk of complication due to deep and infratentorial location 6. Large volume LP planned for 05/03/2017 7. Obtain blood cultures. 3. Neuro/MSK: Traumatic Subarachnoid hemorrhage -s/p fall at home with + LOC -CT head 04/16: Moderate subarachnoid hemorrhage scattered throughout the bilateral hemispheric sulci >decreased propranolol to 15mg TID for neuro storming, will wean as tolerated Musculoskeletal/ Orthopedic Injuries- -T11 compression fractureduring her fall that has remained stable during this admission -displaced left intertrochanteric femur fractureand required surgery on 2016 for stabilization -Currently WBAT for LLE. Will request ortho to follow her. -Consult PT/OT 4. Pain control: On low dose oxycodone, pain controlled with oxycodone 5. Eyes: - Panuveitis and NAOIN, vision loss, left eye - Continue brimonidine and maxitrol - She has no light perception in the left eye, since early 03/2017 - Ophthalmology opinion awaited Heme: - Anemia and thrombocytopenia, stable. Thrombocytopenia improving since orthopedic surgery. - Lovenox for DVT prophylaxis.Hold for LP tomorrow FEN/Renal: - Renal function and electrolytes stable. - Replace per BMT replacement protocol, she is high goal replacement - She is eating well. No edema ID: Prophylasis: PenVK, Acyclovir, pentamidine GI: Tolerating regular diet Endo: BG management by endocrine, on long and short acting insulin. Also hypothyroid on Synthroid Psych: Low dose klonopin and trazodone at bedtime GvHD Staging/Grading: Chronic GvHD not present H/o acute GvHD of GI tract resolved. Subjective: Donna Wilde is a 61 y.o. female no new issues. Headaches persist, pain left lower extremity. No new complaints. Has brain lesions on MRI , currently diagnostic work in progress. Review of Systems: Constitutional: fatigue, increased drowsiness, no fevers and night sweats, or weight loss HENT: Bruising on left half of face, improving, No congestion, dental problem, ear discharge. Ear pain, tinnitus, facial swelling, mouth sores, postnasal discharge, rhinorrhea, sinus pressure, sore throat, trouble swallowing, or voice change Eyes: Decreased vision/ loss of vision left eye, No eye discharge, redness, pain , photophobia CVS: No chest pain, edema, or palpitations Respiratory: No shortness of breath, wheezing, cough, hemoptysis, or chest tightness Abdomen: No abdominal pain, distension, blood in stool, hematemesis, nausea, vomiting, diarrhea, constipation, or rectal pain : No dysuria, flank pain, frequency, hematuria, urgency MSK: Pain left lower extremity, no back pain, joint swelling, myalgias, neck pain or stiffness Endocrine: No cold/ heat intolerance, polyuria, polydipsia, or polyphagia asthenia Dermatology: Bruising left side of face, No pallor, rash, wound, or color changes Neurology: No headaches, dizziness, facial asymmetry, seizures, speech difficulty, weakness, tremors, light headedness, or syncope. Hematologic: No swelling, or adenopathy Psych: increased sleepiness, no behavior problem, confusion, mood changes, hallucinations, nervous/ anxiety, or suicidal ideation. Objective: Medications: Scheduled Meds: acyclovir (ZOVIRAX) tablet 800 mg 800 mg Oral BID brimonidine (ALPHAGAN P) 0.15 % ophthalmic solution 1 Drop 1 Drop Left Eye TID carboxymethylcellulose (REFRESH PLUS) 0.5 % ophthalmic solution 1 Drop 1 Drop Both Eyes QID cholecalciferol (VITAMIN D-3) tablet 2,000 Units 2,000 Units Oral QDAY clonazePAM (KLONOPIN) tablet 0.25 mg 0.25 mg Oral QHS enoxaparin (LOVENOX) syringe 40 mg 40 mg Subcutaneous Q24H* ergocalciferol (VITAMIN D-2) capsule 50,000 Units 50,000 Units Oral Q7 Days insulin aspart (NOVOLOG FLEXPEN) injection PEN 0-14 Units 0-14 Units Subcutaneous ACHS insulin glargine (LANTUS SOLOSTAR) injection PEN 10 Units 10 Units Subcutaneous QHS levothyroxine (SYNTHROID) tablet 50 mcg 50 mcg Oral QDAY 30 min before breakfast melatonin tablet 3 mg 3 mg Oral QHS neomycin/polymyxin/dexamethasone (MAXITROL) ophthalmic suspension 1 Drop 1 Drop Left Eye BID penicillin V potassium (VEETID) tablet 750 mg 750 mg Oral BID [START ON 05/05/2017] pentamidine (NEBUPENT) nebulizer solution 300 mg 300 mg Inhalation Q28 Days polyethylene glycol 3350 (MIRALAX) packet 17 g 17 g Oral QDAY propranolol (INDERAL) tablet 20 mg 20 mg Oral TID senna/docusate (SENOKOT-S) tablet 1 Tab 1 Tab Oral BID traZODone (DESYREL) tablet 25 mg 25 mg Oral QHS Continuous Infusions: sodium chloride 0.9 % infusion 75 mL/hr at 05/02/17 0045 PRN and Respiratory Meds:acetaminophen Q4H PRN, alteplase PRN (Mixing Plant Operator from Rx) , benzonatate TID PRN, magnesium sulfate 4 g/50 mL PRN, mineral oil/white petrolatum TID PRN, oxyCODONE Q4H PRN, potassium chloride PRN (Mixing Plant Operator from Rx) , prochlorperazine Q6H PRN OR prochlorperazine Q6H PRN Vital Signs: Last Filed Vital Signs: 24 Hour Range BP: 131/59 (05/02 424) Temp: 36.8 C (98.2 F) (05/02 424) Pulse: 68 (05/02 424) Respirations: 16 PER MINUTE (05/02 424) SpO2: 98 % (05/02 424) O2 Delivery: None (Room Air) (05/02 424) BP: (117-140)/(53-77) Temp: [36.7 C (98 F)-37.1 C (98.7 F)] Pulse: [65-81] Respirations: [16 PER MINUTE-20 PER MINUTE] SpO2: [97 %-100 %] O2 Delivery: None (Room Air) Intensity Pain Scale 0-10 (Pain 1): (not recorded) Vitals: 04/30/17 1740 05/02/17 0640 Weight: 58.2 kg (128 lb 4.9 oz) 58.9 kg (129 lb 13.6 oz) Intake/Output Summary: (Last 24 hours) Intake/Output Summary (Last 24 hours) at 05/02/17 0651 Last data filed at 05/02/17 0543 Gross per 24 hour Intake 2433 ml Output 0 ml Net 2433 ml Physical Exam: Performance Status (Karnofsky): 50% Requires considerable assistance and frequent medical care General: Alert, cooperative, no distress, appears stated age Head: Normocephalic, without obvious abnormality, atraumatic, large bruising left side of face. Eyes: Conjunctivae/corneas clear. PERRL. Loss of vision left eye Throat: Lips, mucosa and tongue normal. Teeth and gums normal Neck: Supple, symmetrical, trachea midline, no adenopathy Lungs: Clear to auscultation bilaterally Heart: Regular rate and rhythm, S1, S2 normal, no murmur, click rub or gallop Abdomen: Soft, non-tender. Bowel sounds normal. No masses. No organomegaly. Extremities: Recently operated left lower extremity, decreased movements, no swelling or deformity, no cyanosis or trace edema both LE. Skin: Skin color, texture, turgor normal. No rashes or lesions Musculoskeletal: Recently operated left lower extremity, decreased movements, no swelling or deformity Psych: Normal Ventilator/Respiratory Support: none Lab Review: CBC w/Diff Lab Results Component Value Date/Time WBC 4.7 05/01/2017 06:13 AM RBC 2.17 (L) 05/01/2017 06:13 AM HGB 7.9 (L) 05/01/2017 06:13 AM HCT 22.4 (L) 05/01/2017 06:13 AM MCV 103.3 (H) 05/01/2017 06:13 AM MCH 36.6 (H) 05/01/2017 06:13 AM MCHC 35.4 05/01/2017 06:13 AM RDW 19.1 (H) 05/01/2017 06:13 AM PLTCT 89 (L) 05/01/2017 06:13 AM MPV 6.6 (L) 05/01/2017 06:13 AM Lab Results Component Value Date/Time NEUT 54 05/01/2017 06:13 AM ANC 2.60 05/01/2017 06:13 AM LYMA 32 05/01/2017 06:13 AM ALC 1.50 05/01/2017 06:13 AM BRUCE 12 05/01/2017 06:13 AM AMC 0.50 05/01/2017 06:13 AM EOSA 2 05/01/2017 06:13 AM AEC 0.10 05/01/2017 06:13 AM BASA 0 05/01/2017 06:13 AM ABC 0.00 05/01/2017 06:13 AM Comprehensive Metabolic Profile Lab Results Component Value Date/Time NA 135 (L) 05/02/2017 05:51 AM K 4.7 05/02/2017 05:51 AM CL 108 05/02/2017 05:51 AM CO2 22 05/02/2017 05:51 AM GAP 5 05/02/2017 05:51 AM BUN 16 05/02/2017 05:51 AM CR 0.83 05/02/2017 05:51 AM GLU 116 (H) 05/02/2017 05:51 AM Lab Results Component Value Date/Time CA 9.1 05/02/2017 05:51 AM PO4 2.3 04/26/2017 04:58 AM ALBUMIN 2.1 (L) 04/22/2017 04:41 AM TOTPROT 4.3 (L) 04/22/2017 04:41 AM ALKPHOS 107 04/22/2017 04:41 AM AST 19 04/22/2017 04:41 AM ALT 5 (L) 04/22/2017 04:41 AM TOTBILI 0.7 04/22/2017 04:41 AM GFR >60 05/02/2017 05:51 AM GFRAA >60 05/02/2017 05:51 AM Point of Care Testing: (Last 24 hours): Glucose: (!) 116 (05/02/17 0534) Radiology Review: Pertinent radiology reviewed. Varun Thornton MD, MRCP [employer] Division Of Hematologic Malignancies and [employer] [facility] * Aaliyah Yang RN - 05/02/2017 5:49 AM CDT Shift: [id number] NEWS Score: 0, 0 Pain: Pt with complaints of left leg pain. 5 mg PO oxycodone given x1. Nutrition: Pt is on a neutropenic diet. GI/: Last bowel movement was 05/01. Pt is incontinent of urine/stool. No complaints of nausea. Activity: Pt is with 2x assist. WBAT LLE. Family: at bedside. Last Shower: Bed bath 05/01 New Events or Follow-up: -no acute events overnight * Julianna Giang RN - 05/02/2017 12:35 AM CDT Report given to Smiley on unit 41; pt transferred to unit 41 in bed with fluid pump (currently second bag of Potassium Chloride running); all belongings with pt and pt's ; medications sent with pt in belongings bag. * Varun Thornton MD - 05/01/2017 2:15 PM CDT Formatting of this note may be different from the original. 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 - 03/05/2017: BMBX in CR both by morphology and by Flow, cytogenetics 46 XX, no abnormalities - Chimerism 03/05/2017: is 100% donor donor DISC INSPECTOR: - MRINew brain lesion on MRI 04/29: concerning for infection or malignancy. "Enhancing nodular medial right cerebellar lesion and numerous additional smaller enhancing juxtacortical bilateral cerebral, basal nuclei, and brainstem lesions with mild associated multifocal vasogenic edema likely reflecting leukemia. Opportunistic intracranial infection could appear similar. - No prior history of DISC INSPECTOR malignancy. LP 04/12/17 did not show evidence of leukemia. Plan: 1. Will obtain CT scans of chest / abdomen and pelvis to look for possible other lesions if this is infective metastasis 2. Continue to follow Neurology recommendations 3. Will consult ophthalmology, -see below # in eyes section 4. Consult ID to guide workup 5. Will consult neurosurgery on Wednesday for possible biopsy of the lesion/ opinion 6. Obtain toxoplasma PCR, crypto, histo, aspergillus ag, fungitell 3. Neuro/MSK/Optho: Traumatic Subarachnoid hemorrhage -s/p fall at home with + LOC -CT head 04/16: Moderate subarachnoid hemorrhage scattered throughout the bilateral hemispheric sulci >decrease propranolol to 15mg TID for neuro storming, will wean as tolerated -Consult speech therapy Musculoskeletal/ Orthopedic Injuries -T11 compression fractureduring her fall that has remained stable during this admission -displaced left intertrochanteric femur fractureand required surgery on 2016 for stabilization -Currently WBAT for LLE -Consult PT/OT 4. Pain control: On low dose oxycodone, pain controlled with oxycodone 5. Eyes: - Panuveitis and NAOIN, vision loss, left eye -Continue brimonidine and maxitrol -She has no light perception in the left eye, since early 03/2017 -Consult opthalmology as above Heme: - Anemia and thrombocytopenia, stable. Thrombocytopenia improving since orthopedic surgery. - Lovenox for DVT prophylaxis. FEN/Renal: Renal function and electrolytes stable. Replace per BMT replacement protocol, she is high goal replacement ID: Prophylasis: PenVK, Acyclovir, pentamidine GI: Tolerating regular diet Endo: BG management by endocrine, on long and short acting insulin. Also hypothyroid on Synthroid Psych: Low dose klonopin and trazodone at bedtime GvHD Staging/Grading: Chronic GvHD not present H/o acute GvHD of GI tract resolved Subjective: Donna Wilde is a 61 y.o. female transferred from rehabilitation service where she was found to have brain lesions identified on MRI. She complains of increased fatigue and drowsiness, no focal neurological signs. No LOC, seizures. Has pain in her left lower extremity Review of Systems: Constitutional: fatigue, increased drowsiness, no fevers and night sweats, or weight loss HENT: Bruising on left half of face, improving, No congestion, dental problem, ear discharge. Ear pain, tinnitus, facial swelling, mouth sores, postnasal discharge, rhinorrhea, sinus pressure, sore throat, trouble swallowing, or voice change Eyes: Decreased vision/ loss of vision left eye, No eye discharge, redness, pain , photophobia CVS: No chest pain, edema, or palpitations Respiratory: No shortness of breath, wheezing, cough, hemoptysis, or chest tightness Abdomen: No abdominal pain, distension, blood in stool, hematemesis, nausea, vomiting, diarrhea, constipation, or rectal pain : No dysuria, flank pain, frequency, hematuria, urgency MSK: Pain left lower extremity, no back pain, joint swelling, myalgias, neck pain or stiffness Endocrine: No cold/ heat intolerance, polyuria, polydipsia, or polyphagia asthenia Dermatology: Bruising left side of face, No pallor, rash, wound, or color changes Neurology: No headaches, dizziness, facial asymmetry, seizures, speech difficulty, weakness, tremors, light headedness, or syncope. Hematologic: No swelling, or adenopathy Psych: increased sleepiness, no behavior problem, confusion, mood changes, hallucinations, nervous/ anxiety, or suicidal ideation. Objective: Medications: Scheduled Meds: acyclovir (ZOVIRAX) tablet 800 mg 800 mg Oral BID brimonidine (ALPHAGAN P) 0.15 % ophthalmic solution 1 Drop 1 Drop Left Eye TID carboxymethylcellulose (REFRESH PLUS) 0.5 % ophthalmic solution 1 Drop 1 Drop Both Eyes QID cholecalciferol (VITAMIN D-3) tablet 2,000 Units 2,000 Units Oral QDAY clonazePAM (KLONOPIN) tablet 0.25 mg 0.25 mg Oral QHS enoxaparin (LOVENOX) syringe 40 mg 40 mg Subcutaneous Q24H* ergocalciferol (VITAMIN D-2) capsule 50,000 Units 50,000 Units Oral Q7 Days insulin aspart (NOVOLOG FLEXPEN) injection PEN 0-14 Units 0-14 Units Subcutaneous ACHS insulin glargine (LANTUS SOLOSTAR) injection PEN 10 Units 10 Units Subcutaneous QHS levothyroxine (SYNTHROID) tablet 50 mcg 50 mcg Oral QDAY 30 min before breakfast melatonin tablet 3 mg 3 mg Oral QHS penicillin V potassium (VEETID) tablet 750 mg 750 mg Oral BID [START ON 05/05/2017] pentamidine (NEBUPENT) nebulizer solution 300 mg 300 mg Inhalation Q28 Days polyethylene glycol 3350 (MIRALAX) packet 17 g 17 g Oral QDAY propranolol (INDERAL) tablet 20 mg 20 mg Oral TID senna/docusate (SENOKOT-S) tablet 1 Tab 1 Tab Oral BID traZODone (DESYREL) tablet 25 mg 25 mg Oral QHS Continuous Infusions: sodium chloride 0.9 % infusion 75 mL/hr at 05/01/17 0828 PRN and Respiratory Meds:acetaminophen Q4H PRN, alteplase PRN (Mixing Plant Operator from Rx) , benzonatate TID PRN, magnesium sulfate 4 g/50 mL PRN, mineral oil/white petrolatum TID PRN, oxyCODONE Q4H PRN, potassium chloride PRN (Mixing Plant Operator from Rx) , prochlorperazine Q6H PRN OR prochlorperazine Q6H PRN Vital Signs: Last Filed Vital Signs: 24 Hour Range BP: 117/77 (05/01 1240) Temp: 36.7 C (98 F) (05/010) Pulse: 81 (05/01 1240) Respirations: 18 PER MINUTE (05/01 1240) SpO2: 97 % (05/01 1240) O2 Delivery: None (Room Air) (05/01 1240) Height: 162.6 cm (64") (04/30 1740) BP: (117-154)/(52-77) Temp: [36.7 C (98 F)-37.1 C (98.7 F)] Pulse: [62-83] Respirations: [16 PER MINUTE-18 PER MINUTE] SpO2: [95 %-100 %] O2 Delivery: None (Room Air) Intensity Pain Scale 0-10 (Pain 1): (not recorded) Vitals: 04/30/17 1740 Weight: 58.2 kg (128 lb 4.9 oz) Intake/Output Summary: (Last 24 hours) Intake/Output Summary (Last 24 hours) at 05/01/17 1415 Last data filed at 05/01/17 1340 Gross per 24 hour Intake 1383 ml Output 0 ml Net 1383 ml Physical Exam: Performance Status (Karnofsky): 50% Requires considerable assistance and frequent medical care General: Alert, cooperative, no distress, appears stated age Head: Normocephalic, without obvious abnormality, atraumatic, large bruising left side of face. Eyes: Conjunctivae/corneas clear. PERRL. Loss of vision left eye Throat: Lips, mucosa and tongue normal. Teeth and gums normal Neck: Supple, symmetrical, trachea midline, no adenopathy Lungs: Clear to auscultation bilaterally Heart: Regular rate and rhythm, S1, S2 normal, no murmur, click rub or gallop Abdomen: Soft, non-tender. Bowel sounds normal. No masses. No organomegaly. Extremities: Recently operated left lower extremity, decreased movements, no swelling or deformity, no cyanosis or trace edema both LE. Skin: Skin color, texture, turgor normal. No rashes or lesions Musculoskeletal: Recently operated left lower extremity, decreased movements, no swelling or deformity Psych: Normal Ventilator/Respiratory Support: none Lab Review: CBC w/Diff Lab Results Component Value Date/Time WBC 4.7 05/01/2017 06:13 AM RBC 2.17 (L) 05/01/2017 06:13 AM HGB 7.9 (L) 05/01/2017 06:13 AM HCT 22.4 (L) 05/01/2017 06:13 AM MCV 103.3 (H) 05/01/2017 06:13 AM MCH 36.6 (H) 05/01/2017 06:13 AM MCHC 35.4 05/01/2017 06:13 AM RDW 19.1 (H) 05/01/2017 06:13 AM PLTCT 89 (L) 05/01/2017 06:13 AM MPV 6.6 (L) 05/01/2017 06:13 AM Lab Results Component Value Date/Time NEUT 54 05/01/2017 06:13 AM ANC 2.60 05/01/2017 06:13 AM LYMA 32 05/01/2017 06:13 AM ALC 1.50 05/01/2017 06:13 AM BRUCE 12 05/01/2017 06:13 AM AMC 0.50 05/01/2017 06:13 AM EOSA 2 05/01/2017 06:13 AM AEC 0.10 05/01/2017 06:13 AM BASA 0 05/01/2017 06:13 AM ABC 0.00 05/01/2017 06:13 AM Comprehensive Metabolic Profile Lab Results Component Value Date/Time NA 137 05/01/2017 06:13 AM K 3.9 05/01/2017 06:13 AM CL 109 05/01/2017 06:13 AM CO2 22 05/01/2017 06:13 AM GAP 6 05/01/2017 06:13 AM BUN 17 05/01/2017 06:13 AM CR 0.79 05/01/2017 06:13 AM GLU 73 05/01/2017 06:13 AM Lab Results Component Value Date/Time CA 9.3 05/01/2017 06:13 AM PO4 2.3 04/26/2017 04:58 AM ALBUMIN 2.1 (L) 04/22/2017 04:41 AM TOTPROT 4.3 (L) 04/22/2017 04:41 AM ALKPHOS 107 04/22/2017 04:41 AM AST 19 04/22/2017 04:41 AM ALT 5 (L) 04/22/2017 04:41 AM TOTBILI 0.7 04/22/2017 04:41 AM GFR >60 05/01/2017 06:13 AM GFRAA >60 05/01/2017 06:13 AM Point of Care Testing: (Last 24 hours): Glucose: 73 (05/01/17 0613) Radiology Review: Pertinent radiology reviewed. Varun Thornton MD, MRCP [employer] Division Of Hematologic Malignancies and Cellular Therapeutics [facility] * Julianna Hernandez, RN - 05/01/2017 1:48 PM CDT interpreter and translator at [facility] for MD rounds: Georgie Qureshi * Megan Ramon, RT - 04/30/2017 6:09 PM CDT Formatting of this note may be different from the original. RESPIRATORY THERAPY ADULT PROTOCOL EVALUATION RESPIRATORY PROTOCOL PLAN Medications Note: If indicated by protocol, medication orders will be placed by therapist. Procedures PATIENT EVALUATION RESULTS Chart Review * Pulmonary Hx: No pulmonary diagnosis OR no smoking hx * Surgical Hx: General surgery (cough & sigh not affected) * Chest X-Ray: Clear OR not available * PFT/Oxygenation: FEV1, PEFR > 80% predicted OR physically unable to perform OR Pa02 >80 RA OR Sp02 >95% RA Patient Assessment * Respiratory Pattern: Regular pattern and rate OR good chest excursion with deep breathing * Breath Sounds: Clear and able to auscultate bases posteriorly * Cough / Sputum: Strong, effective cough OR nonproductive * Mental Status: Alert, oriented, cooperative * Activity Level: Non-ambulatory (LE) Priority Index Total Points: 3 Points * Priority Index: Criteria not met PRIORITY INDEX GUIDELINES* Priority Points 1 0-9 points 2 9-18 points 3 > 18 points + Pulm Dx or Home Rx *Higher points indicate higher acuity. Therapist: Megan Ramon, RT Date: 04/30/2017 [place] AC=Airway clearance AM=Aerosolized medication BA=Thurman aerosol DB&C=Deep breathe & cough FEV1=Forced expiratory volume in first second) IC=Inspiratory capacity LE=Lung expansion MDI=Metered dose inhaler Neb=Nebulizer O2=Oxygen Oxim=Oximetry PEFR=Peak expiratory flow rate SIGN ARTIST=Rapid Response Team in this encounter H&P Notes * Elliott Holloway, RAHAT-INTERNATIONAL LOGISTICS COORDINATOR - 05/03/2017 7:51 AM CDT Formatting of this note may be different from the original. Pre-Procedure History and Physical/Sedation Plan Procedure Date: 05/03/2017 Planned Procedure(s): Lumbar puncture. Indication: Fluid testing. Chief Complaint: Leukemia vs infection History of Present Illness: Donna Wilde is a 61 y.o. female with a history of TBI who presents today for procedure. Patient Active Problem List Diagnosis Date Noted Subarachnoid hemorrhage following injury, with loss of consciousness ([facility]) 04/28/2017 Traumatic brain injury ([facility]) 04/28/2017 Lesion of cerebellum 04/28/2017 Closed displaced intertrochanteric fracture of left femur ([facility]) 04/28/2017 Cognitive impairment 04/28/2017 Impaired mobility and activities of daily living 04/28/2017 SAH (subarachnoid hemorrhage) ([facility]) 04/27/2017 Delirium 04/25/2017 Sleep disturbance 04/25/2017 Hyponatremia 04/25/2017 Vitamin D deficiency 04/25/2017 Acute pain due to trauma 04/20/2017 Cerebellar stroke ([facility]) 04/20/2017 Abrasion of face 04/20/2017 Hypertension 04/20/2017 Hypokalemia 04/20/2017 Acute blood loss anemia 04/20/2017 Thrombocytopenia ([facility]) 04/20/2017 Pancytopenia ([facility]) 04/20/2017 DM w/o complication type II ([facility]) 04/20/2017 Closed intertrochanteric fracture of left femur ([facility]) 04/20/2017 Dysphagia 04/20/2017 Traumatic compression fracture of T11 thoracic vertebra ([facility]) 04/20/2017 Sympathetic storming 04/20/2017 Facial laceration 04/20/2017 Facial abrasion 04/20/2017 Uveitis 04/20/2017 Leukocytopenia 04/20/2017 Hypothyroid 04/20/2017 Hip fracture ([facility]) 04/16/2017 Subarachnoid bleed ([facility]) 04/16/2017 Pneumonia of both lungs due to infectious organism 04/15/2017 Panuveitis of left eye 04/07/2017 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 04/05/2017 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 03/24/2017 Hyperbilirubinemia 02/19/2017 Watery diarrhea 02/19/2017 Hypoxia 02/16/2017 Pneumonia 02/16/2017 Sepsis (HCC) 02/16/2017 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remission (HCC) 02/16/2017 H/O bone marrow transplant (HCC) 02/16/2017 History of pancytopenia 02/16/2017 Thrombocytopenia (HCC) 01/05/2017 Primary hyperparathyroidism (HCC) 12/01/2016 Lesion of oral mucosa 12/01/2016 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HCC) 10/27/2016 Hypomagnesemia 10/20/2016 Hypogammaglobulinemia (HCC) 10/16/2016 Thrush 10/13/2016 Hypokalemia 09/24/2016 Electrolyte imbalance 09/22/2016 Chemotherapy-induced neuropathy (HCC) 09/22/2016 Pancytopenia due to chemotherapy ([facility]) 09/22/2016 Recurrent Clostridium difficile diarrhea 09/22/2016 Depression 08/14/2016 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 Total bilirubin, elevated 08/13/2016 Hyperopia with presbyopia of both eyes 06/24/2016 Hyperparathyroidism (HCC) 06/10/2016 Ychlm-xsbsqx-nfpp disease, acute (HCC) 04/16/2016 Severe malnutrition ([facility]) 12/02/2015 AML (acute myelogenous leukemia) 11/30/2015 Retinal edema right eye 09/27/2015 Nuclear sclerosis of both eyes 04/09/2015 Retinopathy of both eyes 04/09/2015 Vitreous hemorrhage of both eyes (HCC) 04/09/2015 Myeloproliferative disorder 01/21/2015 HTN (hypertension) 01/21/2015 Vision impairment 01/21/2015 HLD (hyperlipidemia) 01/09/2015 DM (diabetes mellitus) 01/09/2015 Past Medical History: Diagnosis Date Cancer (HCC) DM2 (diabetes mellitus, type 2) (HCC) HLD (hyperlipidemia) HTN (hypertension) Leukemia (HCC) Overweight (BMI 25.0-29.9) Thyroid disorder Past Surgical History: Procedure Laterality Date SECTION, LOW TRANSVERSE COLONOSCOPY N/A 04/14/2016 COLONOSCOPY BIOPSY performed by Shane Lynn MD at ENDO[facility] [place] ESOPHAGOGASTRODUODENOSCOPY TRANSORAL DIAGNOSTIC N/A 09/09/2016 ESOPHAGOGASTRODUODENOSCOPY performed by Hermila Cornejo MD at ENDO/GI [place] PROPH TX N/P/PLTWR W/WO METHYLMETHACRYLATE FEMUR Left 04/19/2017 INSERTION CEPHALOMEDULLARY NAIL FEMUR performed by Shane Sam MD at Main OR/ Periop IA SIGMOIDOSCOPY FLX DX W/COLLJ SPEC BR/WA IF PFRMD N/A 04/14/2016 SIGMOIDOSCOPY DIAGNOSTIC performed by Shane Lynn MD at ENDO/GI IA SIGMOIDOSCOPY FLX DX W/COLLJ SPEC BR/WA IF PFRMD N/A 07/29/2016 SIGMOIDOSCOPY DIAGNOSTIC performed by Niharika Lam MD at ENDO/GI IA SIGMOIDOSCOPY FLX DX W/COLLJ SPEC BR/WA IF PFRMD N/A 09/09/2016 SIGMOIDOSCOPY DIAGNOSTIC performed by Hermila Cornejo MD at ENDO/GI IA SIGMOIDOSCOPY FLX W/BIOPSY SINGLE/MULTIPLE 09/09/2016 SIGMOIDOSCOPY BIOPSY performed by Hermila Cornejo MD at ENDO/GI UPPER GASTROINTESTINAL ENDOSCOPY N/A 04/14/2016 ESOPHAGOGASTRODUODENOSCOPY performed by Shane Lynn MD at ENDO/GI UPPER GASTROINTESTINAL ENDOSCOPY N/A 04/14/2016 ESOPHAGOGASTRODUODENOSCOPY BIOPSY performed by Shane Lynn MD at ENDO/GI UPPER GASTROINTESTINAL ENDOSCOPY N/A 07/29/2016 ESOPHAGOGASTRODUODENOSCOPY performed by Niharika Lam MD at ENDO/GI Prescriptions Prior to Admission Medication Sig Dispense Refill Last Dose acetaminophen (TYLENOL) 325 mg tablet Take 2 Tabs by mouth every 4 hours as needed. 0 acyclovir (ZOVIRAX) 800 mg tablet Take 1 Tab by mouth twice daily. 60 Tab 5 04/15/2017 albuterol (VENTOLIN HFA, PROAIR HFA, PROVENTIL HFA) 90 mcg/actuation inhaler Inhale 2 Puffs by mouth into the lungs every 4 hours as needed for Wheezing or Shortness of Breath. Shake well before use. 3 Inhaler 3 Past Week bacitracin 500 unit/g topical ointment Apply to left face laceration. 14 g 0 benzonatate (TESSALON PERLES) 100 mg capsule Take 1 Cap by mouth three times daily as needed for Cough. 20 Cap 0 Taking blood sugar diagnostic (ONETOUCH VERIO) test strip 1 Strip before meals and at bedtime. 100 Strip 6 Taking Blood-Glucose Meter [facility] [place] One Touch Verio meter 1 Each 0 Taking brimonidine (ALPHAGAN P) 0.15 % ophthalmic solution Apply 1 Drop to left eye as directed three times daily. 5 mL 0 04/15/2017 carboxymethylcellulose (REFRESH PLUS) 0.5 % dpet Apply 1 Drop to both eyes four times daily. 50 Each 4 Taking cholecalciferol (VITAMIN D-3) 400 unit tab Take 2 Tabs by mouth daily. 30 Each 0 clonazePAM (KLONOPIN) 0.5 mg tablet Take 0.5 Tabs by mouth at bedtime daily. 60 Tab 5 Taking dorzolamide-timolol(+) (COSOPT) 2-0.5 % ophthalmic solution Apply 1 Drop to left eye as directed three times daily. 10 mL 0 04/15/2017 enoxaparin (LOVENOX) 40 mg injection syringe Inject 0.4 mL under the skin daily for 35 days. 35 Syringe 0 ergocalciferol (VITAMIN D-2) 50,000 unit capsule Take 1 Cap by mouth every 7 days. 12 Cap 0 Taking ferrous sulfate (FEOSOL, FEROSUL) 325 mg (65 mg iron) tablet Take 1 Tab by mouth three times daily with meals for 30 days. Take on an empty stomach at least 1 hour before or 2 hours after food. 90 Tab 0 guaiFENesin (ROBITUSSIN) 100 mg/5 mL oral solution Take 10 mL by mouth every 4 hours as needed. 118 mL 0 Taking insulin aspart (NOVOLOG FLEXPEN) 100 unit/mL injection PEN Inject 3 Units under the skin three times daily with meals. 3 Package 3 insulin glargine (LANTUS SOLOSTAR) 100 unit/mL (3 mL) injection PEN Inject 8 Units under the skin at bedtime daily. 3 Package 3 Insulin [place] (Disposable) 31 gauge x 1/4" ndle Use as needed for insulin administration 100 Each 6 Taking lancets (ACCU-CHEK FASTCLIX) [facility] To check blood sugars before meals and at bed time. 100 Each 3 Taking levothyroxine (SYNTHROID) 50 mcg tablet Take 1 Tab by mouth daily 30 minutes before breakfast. 90 Tab 3 04/15/2017 magnesium oxide (MAG-OX) 400 mg tablet Take 1 Tab by mouth twice daily. 180 Tab 3 Taking melatonin 3 mg tab Take 1 Tab by mouth at bedtime daily for 60 days. 60 Tab 0 mineral oil/white petrolatum (ABSORBASE) oint apply to hands and affected areas as needed Taking pyrtbpor-pgptzutar-sfhutiqthmild (MAXITROL) 3.5 mg/g-10,000 unit/g-0.1 % ophthalmic ointment Apply 1 cm to left eye as directed twice daily. 3.5 g 2 Taking oxyCODONE (ROXICODONE, OXY-IR) 5 mg tablet Take 1-2 Tabs by mouth every 4 hours as needed Earliest Fill Date: 04/27/17 90 Tab 0 penicillin V potassium (VEETID) 250 mg tablet Take 3 tabs by mouth twice daily. 180 Tab 3 04/15/2017 pentamidine (NEBUPENT) 300 mg/6 mL nebulizer solution Inhale 6 mL by mouth into the lungs every 30 days. Last 03/05 Taking polyethylene glycol 3350 (MIRALAX) 17 g packet Take 1 Packet by mouth daily for 30 days. 30 Packet 0 propranolol (INDERAL) 20 mg tablet Take 1 Tab by mouth three times daily for 30 days. 90 Tab 0 senna/docusate (SENOKOT-S) 8.6/50 mg tablet Take 1 Tab by mouth twice daily for 30 days. 60 Tab 0 traZODone (DESYREL) 50 mg tablet Take 0.5 Tabs by mouth at bedtime daily for 60 days. 30 Tab 0 No Known Allergies Social History: Social History Substance Use Topics Smoking status: Never Smoker Smokeless tobacco: Never Used Alcohol use No Family History Problem Relation Age of Onset Other Mother during Other Father etoh liver Diabetes Sister Diabetes Brother Diabetes Type II Other Hypertension Other Amblyopia Neg Hx Strabismus Neg Hx Blindness Neg Hx Cataract Neg Hx Glaucoma Neg Hx Macular Degen Neg Hx Retinal Detachment Neg Hx Review of Systems Review of systems not obtained due to patient factors. Previous Personal Anesthetic/Sedation History: Denies adverse events related to sedation/anesthesia. Previous Family Anesthetic/Sedation History: Denies adverse events related to sedation/anesthesia. Physical Exam: Vital Signs: Last Filed In 24 Hours Vital Signs: 24 Hour Range BP: 138/61 (05/03 339) Temp: 36.7 C (98 F) (05/03 339) Pulse: 66 (07/24 0339) Respirations: 18 PER MINUTE (05/03 339) SpO2: 100 % (05/03 339) O2 Delivery: None (Room Air) (05/03 339) BP: (127-153)/(54-64) Temp: [36.4 C (97.5 F)-36.8 C (98.2 F)] Pulse: [62-66] Respirations: [14 PER MINUTE-18 PER MINUTE] SpO2: [98 %-100 %] O2 Delivery: None (Room Air) Intensity Pain Scale 0-10 (Pain 1): 2 (05/02/172113) Airway: airway assessment performed Mallampati III (soft palate, base of uvula visible) Head and Neck: no abnormalities noted Mouth: no abnormalities noted NPO status: Acceptable Status: Not Anesthesia Classification: ASA III (A patient with a severe systemic disease that limits activity, but is not incapacitating) Sedation/Medication Plan: Lidocaine Discussion/Reviews: Physician has discussed risks and alternatives of this type of sedation and above planned procedures with Armen Wilde and interpreter and translator who gave consent Lab/Radiology/Other Diagnostic Tests: Labs: Pertinent labs reviewed Elliott Holloway APRN-GEOFF Pager [phone] * Vale Addison MD - 04/30/2017 5:58 PM CDT Formatting of this note may be different from the original. 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 S/ p Flu/Hermila conditioning followed by MSD transplant, currently 1 year 2 month. - BMBX in CR. Chimerism is 100% donor. New brain lesion on MRI 04/29 concerning for infection or malignancy. "Enhancing nodular medial right cerebellar lesion and numerous additional smaller enhancing juxtacortical bilateral cerebral, basal nuclei, and brainstem lesions with mild associated multifocal vasogenic edema likely reflecting leukemia. Opportunistic intracranial infection could appear similar. No prior history of DISC INSPECTOR malignancy. LP 04/12/17 did not show evidence of leukemia. Plan: Admit to BMT Scan CT C/A/P to assess for other lesions Neurology consulted in rehab Consult Optho for retinal exam Consult ID to guide workup Consult Neurosurgery, requires biopsy? Check toxoplasma PCR, crypto, histo, aspergillus ag, fungitell Neuro/MSK/Optho: Traumatic Subarachnoid hemorrhage -s/p fall at home with + LOC -CT head 04/16: Moderate subarachnoid hemorrhage scattered throughout the bilateral hemispheric sulci >decrease propranolol to 15mg TID for neuro storming, will wean as tolerated -Consult speech therapy Musculoskeletal/ Orthopedic Injuries -T11 compression fracture during her fall that has remained stable during this admission -displaced left intertrochanteric femur fracture and required surgery on 2016 for stabilization -Currently WBAT for LLE -Consult PT/OT >Pain control: low dose oxycodone Panuveitis and NAOIN, vision loss, left eye -Continue brimonidine and maxitrol -She has no light perception in the left eye, since early 03/2017 -Consult optho Heme: Anemia and thrombocytopenia, stable. Thrombocytopenia improving since orthopedic surgery. Lovenox for DVT prophylaxis. FEN/Renal: Renal function and electrolytes stable. ID: Prophylasis: PenVK, Acyclovir, pentamidine GI: Tolerating regular diet Endo: BG management by endocrine, on long and short acting insulin. Also hypothyroid on Synthroid Psych: Low dose klonopin and trazodone at bedtime GvHD Staging/Grading: Acute GvHD not present Primary Care Physician: Ghada No PCP Verified Transplant History: Patient with myelodysplastic/myeloproliferative neoplasm, morphologically favoring CMML-2, s/p 4 cycles of dacogen, progressed to AML, CR 1 after 7+3 and HIDAC x 1 Date of Transplant: 03/02/16 Preparative Regimen: Fludarabine/Melphalan Fully ablative/reduced intensity/NST: KAYLEE Disease: AML (from CMMOL) Disease status at transplant: 1st CR Cytogenetic/Fish AT DIAGNOSIS: t(7:11) HLA Match: 8:8 Donor & Cell source: matched sib (sister) [id number] PSC CMV: both POS ABO: both O POS Consents/Studies: 8322, blood, H&P, KAYLEE Flu/Hermila allo consent Coordinator: RUDDY MCKINNON RN Chief Complaint: Admit for brain lesions identified on MRI History of Present Illness: Donna Wilde is a 61 y.o. female Transferred from rehab for evidence of brain lesion on MRI. Spoke to patient with interpreter and translator and family present. Patient has been feeling better and standing at edge of bed with assist. She does feel unsteady on her feet. Complains of fatigue and anxiety. Noted to have difficulty with processing and multi-step directions but full strength in rehab. Denies dizziness or room spinning. Currently denies pain but having some LLE pain at site of fracture. Disease history: Donna Wilde is a 61 y.o. female with a PMH of DM, HTN and HLD who presented from [facility] ED with a leukocytosis concerning for Leukemia. Per her daughter, in early December 2014 she developed a chronic cough which was unremitting. She then presented to due to [facility] ED with complains of weakness, fatigue [...] and referred to Dr. Óscar Jones in [place], hydrea was DC due to thrombocytopenia. She was treated with IVIG x 2 for concern of hemolytic anemia (07/23/15) Patient then started on Dacogen cycle # 1 on 08/19/15 and cycle # 4 on 2/1/16. Patient was referred to us by Dr. [...] also with multiple CMV reactivation now resolved Obstetric History No data available Past Medical History: Diagnosis Date Cancer (HCC) DM2 (diabetes mellitus, type 2) (HCC) HLD (hyperlipidemia) HTN (hypertension) Leukemia (HCC) Overweight (BMI 25.0-29.9) Thyroid disorder Past Surgical History: Procedure Laterality Date SECTION, LOW TRANSVERSE COLONOSCOPY N/A 04/14/2016 COLONOSCOPY BIOPSY performed by Shane Lynn MD at ENDO[facility]GI [place] ESOPHAGOGASTRODUODENOSCOPY TRANSORAL DIAGNOSTIC N/A 09/09/2016 ESOPHAGOGASTRODUODENOSCOPY performed by Hermila Cornejo MD at ENDO/GI IA PROPH TX N/P/PLTWR W/WO METHYLMETHACRYLATE FEMUR Left 04/19/2017 INSERTION CEPHALOMEDULLARY NAIL FEMUR performed by Shane Sam MD at [facility] OR/ Periop IA SIGMOIDOSCOPY FLX DX W/COLLJ SPEC BR/WA IF PFRMD N/A 04/14/2016 SIGMOIDOSCOPY DIAGNOSTIC performed by Shane Lynn MD at ENDO/GI [place] SIGMOIDOSCOPY FLX DX W/COLLJ SPEC BR/WA IF PFRMD N/A 07/29/2016 SIGMOIDOSCOPY DIAGNOSTIC performed by Niharika Lam MD at ENDO/GI [place] SIGMOIDOSCOPY FLX DX W/COLLJ SPEC BR/WA IF PFRMD N/A 09/09/2016 SIGMOIDOSCOPY DIAGNOSTIC performed by Hermila Cornejo MD at ENDO/GI [place] SIGMOIDOSCOPY FLX W/BIOPSY SINGLE/MULTIPLE 09/09/2016 SIGMOIDOSCOPY BIOPSY performed by Hermila Cornejo MD at ENDO/GI UPPER GASTROINTESTINAL ENDOSCOPY N/A 04/14/2016 ESOPHAGOGASTRODUODENOSCOPY performed by Shane Lynn MD at ENDO/GI UPPER GASTROINTESTINAL ENDOSCOPY N/A 04/14/2016 ESOPHAGOGASTRODUODENOSCOPY BIOPSY performed by Shane Lynn MD at ENDO/GI UPPER GASTROINTESTINAL ENDOSCOPY N/A 07/29/2016 ESOPHAGOGASTRODUODENOSCOPY performed by Niharika Lam MD at ENDO/GI Family history reviewed; non-contributory Social History Social History Marital status: Spouse name: Armen Number of children: 8 Years of education: N/A 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 Social History Main Topics Smoking status: Never Smoker Smokeless tobacco: Never Used Alcohol use No Drug use: No Sexual activity: Not Currently Other Topics Concern Not on file Social History Narrative Immunizations (includes history and patient reported): Immunization History Administered Date(s) Administered Flu Vaccine Quadrivalent=>3 Yo (Preservative Free) 06/25/2016 Hepatitis B Vaccine Adult 3 Dose IM 12/15/2016 Hepatitis B Vaccine Ill Patient 4 Dose IM 10/13/2016 Hib conj vaccine, 4 dose (PRP-T) IM (ActHIB) 10/13/2016, 12/15/2016, 2016 IPV 10/13/2016, 12/15/2016, 03/12/2017 Meningococcal Conjug Vaccine IM (MenACWY-D)(Menactra) 10/13/2016 Pneumococcal Vaccine(13-Oxana Peds/immunocompromised adult) 10/13/2016, 2016, 03/12/2017 Tdap Vaccine 10/13/2016, 12/15/2016, 03/12/2017 Allergies: Review of patient's allergies indicates no known allergies. Medications: Prescriptions Prior to Admission Medication Sig acetaminophen (TYLENOL) 325 mg tablet [...] before meals and at bedtime. Blood-Glucose Meter [facility] One Touch Verio meter brimonidine (ALPHAGAN P) 0.15 % ophthalmic solution Apply 1 Drop to left eye as directed three times daily. carboxymethylcellulose (REFRESH PLUS) 0.5 % dpet Apply 1 Drop to both eyes four times daily. cholecalciferol (VITAMIN D-3) 400 unit tab Take 2 Tabs by mouth daily. clonazePAM (KLONOPIN) 0.5 mg tablet Take 0.5 Tabs by mouth at bedtime daily. dorzolamide-timolol(+) (COSOPT) 2-0.5 % ophthalmic solution Apply 1 Drop to left eye as directed three times daily. enoxaparin (LOVENOX) 40 mg injection syringe Inject 0.4 mL under the skin daily for 35 days. ergocalciferol (VITAMIN D-2) 50,000 unit capsule Take 1 Cap by mouth every 7 days. ferrous sulfate (FEOSOL, FEROSUL) 325 mg (65 mg iron) tablet Take 1 Tab by mouth three times daily with meals for 30 days. Take on an empty stomach at least 1 hour before or 2 hours after food. guaiFENesin (ROBITUSSIN) 100 mg/5 mL oral solution Take 10 mL by mouth every 4 hours as needed. insulin aspart (NOVOLOG FLEXPEN) 100 unit/mL injection PEN Inject 3 Units under the skin three times daily with meals. insulin glargine (LANTUS SOLOSTAR) 100 unit/mL (3 mL) injection PEN Inject 8 Units under the skin at bedtime daily. Insulin [place] (Disposable) 31 gauge x 1/4" ndle Use as needed for insulin administration lancets (ACCU-CHEK FASTCLIX) [facility] To check blood sugars before meals and at bed time. levothyroxine (SYNTHROID) 50 mcg tablet Take 1 Tab by mouth daily 30 minutes before breakfast. magnesium oxide (MAG-OX) 400 mg tablet Take 1 Tab by mouth twice daily. melatonin 3 mg tab Take 1 Tab by mouth at bedtime daily for 60 days. mineral oil/white petrolatum (ABSORBASE) oint apply to hands and affected areas as needed xffdhwcd-zgbuaaoci-jipduvsgvisrt (MAXITROL) 3.5 mg/g-10,000 unit/g-0.1 % ophthalmic ointment Apply 1 cm to left eye as directed twice daily. oxyCODONE (ROXICODONE, OXY-IR) 5 mg tablet Take 1-2 Tabs by mouth every 4 hours as needed Earliest Fill Date: 04/27/17 penicillin V potassium (VEETID) 250 mg tablet Take 3 tabs by mouth twice daily. pentamidine (NEBUPENT) 300 mg/6 mL nebulizer solution Inhale 6 mL by mouth into the lungs every 30 days. Last 03/05 polyethylene glycol 3350 (MIRALAX) 17 g packet Take 1 Packet by mouth daily for 30 days. propranolol (INDERAL) 20 mg tablet Take 1 Tab by mouth three times daily for 30 days. senna/docusate (SENOKOT-S) 8.6/50 mg tablet Take 1 Tab by mouth twice daily for 30 days. traZODone (DESYREL) 50 mg tablet Take 0.5 Tabs by mouth at bedtime daily for 60 days. Review of Systems: A 14 point review of systems was negative except for: Constitutional: positive for fatigue Physical Exam: Vital Signs: Last Filed In 24 Hours Vital Signs: 24 Hour Range BP: 154/64 (04/30 1740) Temp: 36.8 C (98.3 F) (04/30 1740) Pulse: 62 (04/30 1740) Respirations: 18 PER MINUTE (04/30 1740) SpO2: 100 % (04/30 1740) O2 Delivery: None (Room Air) (04/30 1740) Height: 162.6 cm (64") (04/30 1740) BP: (121-154)/(54-64) Temp: [36.8 C (98.2 F)-36.9 C (98.4 F)] Pulse: [62-79] Respirations: [18 PER MINUTE] SpO2: [97 %-100 %] O2 Delivery: None (Room Air) Intensity Pain Scale 0-10 (Pain 1): (not recorded) Performance Status (Karnofsky): 40% Disabled, requires special care and assistance General: Alert, cooperative, no distress, appears stated age Head: Normocephalic, without obvious abnormality, atraumatic Eyes: Conjunctivae/corneas clear. PERRL. Throat: Lips, mucosa and tongue normal. Teeth and gums normal Neck: Supple, symmetrical, trachea midline, no adenopathy Lungs: Clear to auscultation bilaterally Heart: Regular rate and rhythm, S1, S2 normal, no murmur, click rub or gallop Abdomen: Soft, non-tender. Bowel sounds normal. No masses. No organomegaly. Extremities: Extremities normal, atraumatic, no cyanosis or edema Skin: Skin color, texture, turgor normal. No rashes or lesions Musculoskeletal: Normal / Negative Psych: Normal Lab/Radiology/Other Diagnostic Tests: 24-hour labs: No results found for this visit on 04/30/17 (from the past 24 hour(s)). Point of Care Testing: (Last 24 hours): Pertinent radiology reviewed. 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 On prior admit she required EN via corpak for nutrition due to altered mental status and dysphasia. She has since been cleared by speech for regular consistencies. Now admit for brain lesions identified on MRI. PO intake appears to be gradually improving but remains grossly inadequate. Per patient and spouse early satiety and not liking hospital foods have limited intakes. Spoke with patient and spouse with BMT team today via interpreter and translator Amairani Wong. Team strongly encouraging patient to eat and increase activity levels and discussed considerations for PEG placement if intakes remain inadequate. Patient has supplemented with boost in the past and was agreeable to receiving with meals to help meet nutrition needs. Goal of at least 2 boost/day in addition to meals was discussed. Per EMR she has had weight fluctuations between 145-120# over the past year, with present weight of 129# and no edema noted. Severe muscle wasting apparent in b/l extremities. Patient meets severe chronic illness malnutrition criteria. Recommendation: Continue current diet as tolerated. Encourage good intake of all meals starting with protein dense foods. Encourage minimum of 2 boost daily in addition to meals as tolerated. Intervention / Plan: Encouraged good PO intakes and efforts with all meals and boost Will continue to monitor PO diet tolerance/adequacy, labs, weight trends, i/os Nutrition Diagnosis: Nutrition Diagnosis: Malnutrition Etiology: chronic illness, early satiety Signs & Symptoms: muscle wasting, patient/spouse reported diet history Goals: Patient to consume >75% of meals/supplements Time Frame: Within 72 Hours Maintain present weight +/- 5% Time Frame: Throughout Stay Arianna Walker MS, RD, LD *[id number] * Adolfo Solis MD - 05/04/2017 12:10 PM CDT Associated Order(s): CONSULT ADULT PALLIATIVE CARE PROVIDER Formatting of this note may be different from the original. Palliative Care Consult Note Admission Date: 04/30/2017 LOS: 4 days Reason for Consult: Goals of care Consult type: Opinion Priority: Routine Assessment/Plan Principal Problem: Nasal cavity mass Active Problems: Retinal edema right eye 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HCC) Subarachnoid bleed (HCC) Lesion of cerebellum Closed displaced intertrochanteric fracture of left femur (HCC) Physical Symptoms: #DISC INSPECTOR Lesions: numerous, etiology under investigation --concern for spread of AML vs opportunistic infection --should the patient have AML, options for treatment poor and limited --patient prefers to defer advance care planning until a diagnosis is obtained #Panuveitis of OS with blindness: unresolved, etiology under investigation --concern for malignant invasion --opthalmology to biopsy vitreous as outpatient #Moderate-severe protein-calorie malnutrition: persistent --patient states anorexia is purely due to taste --possible components of depression and DISC INSPECTOR infection/recurrence of AML --recommend liberalized diet #Depression/anxiety --started fluoxetine 20 mg qHS, discussed with patient the expected timeline for efficacy --continue qhs clonazepam --discontinued trazodone #Left hip and back pain: controlled --receiving a mix of IVP fentanyl, tramadol, and tylenol --no fentanyl or tylenol used today --will reevaluate tomorrow for efficacy of tramadol; may consider different opioid +/- tylenol given serotinergic activity of tramadol and initiation of SSRI #Deconditioning --continue physical and occupation therapy #Delirium and sleep disturbance --continue melatonin and risperidone #Nausea: controlled on prochlorperazine #Constipation: controlled on senna + miralax Psychosocial Issues: Patient is very withdrawn and often allows others to speak for her unless directly requested to speak for herself. There have been voiced concerns about the patient's decision-making being overbearingly influenced by family members. The patient and family have previously stated this is not the case, that she makes her own decisions and others support them. The patient and family desire to defer advance care planning at this time. The family has underlying fears that the healthcare system will "grow tired" of caring for them. It may be difficult to introduce the idea of a comfort-oriented approach without touching this electrified rail. They have been told by physicians in [place] at the time of the patient's diagnosis that she needed to go home, make best of the time she had with her family, and prepare to pass away at home. This is still a sensitive subject for her , who apologetically admits to projecting the memory of this physician on the author as the author introduced himself and his role to the family. Current PPS%: 50 Baseline PPS% (2 weeks prior to admit): 50 and 60 Goals: Full Treatment Estimated Prognosis: weeks to months based on likelihood of AML recurrence and limited treatment options for a patient with already poor functional status Disposition: Continue current care based on goals Adolfo Solis MD Hospice and Palliative Medicine PGY4 Pager: [phone] History of Present Illness: Donna Wilde is a 61 y.o. female, israeli-speaking only. 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 Early April, the patient was initially transferred to [facility] for minutes at hospital following a traumatic fall. She sustained a fracture and was also found to have non-aneurysmal subarachnoid hemorrhage. Her hip fracture was stabilized with intramedullary nailing 04/19/2017. Subarachnoid hemorrhage resolved without incident. She was transferred to [facility] inpatient rehab 04/27/2017. In the course [...] active fungal or bacterial infection. Fungal antigens, fungal toe, galactomannan, and fungal cultures are pending. Toxoplasma IgG is positive, IgM is reportedly unreliable for diagnosis. Infectious disease consultants are considering adding empiric therapy for toxoplasma. A large volume lumbar puncture has been performed studies for infection and malignancy are pending. Neurosurgery consultants as stated that the risks of brain biopsy outweigh the benefits. According to discussion with the primary team, the patient has chronically poor nutrition status and as of today is admitting to depression. If the lumbar puncture demonstrates no evidence of infection, these lesions in the patient's brain most likely represent DISC INSPECTOR spread of the patient's AML. Should the patient have DISC INSPECTOR spread of her AML, treatment options would be very limited and poor. 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 She has been evaluated by ophthalmologythe plan is for outpatient vitreous biopsy. The patient's discharge summary from inpatient rehab states that she requires total assistance with bathing, toileting, lower half dressing, and transfers. On speaking with the patient, she expresses a desire to not discuss the future at this time. She would prefer to know whether she has leukemia in her brain or if it is infection before discussing what it might mean in terms of her future care, goals, and disposition planning. Both the patient and her family feel frustrated by her long hospital stay and her lack of progress. They are very grateful for the care they have received, but they are concerned that at some point the system "might get tired of taking care of them." It should be noted here that they are very susceptible to misunderstandings of language and intentions. At one point in the meeting, the patient's significant directed an outburst of frustration at the author when the author was trying to understand their knowledge of the patient's current condition. Symptomatically, she reports left hip pain that is controlled at rest but that limits her ability to participate in physical therapy. She also reports profound fatigue and depression. She acknowledges a lack of oral intake but asserts repeatedly it is only due to a lack of "mole, frijoles, and tamales," and that it's hard to keep up an appetite after a month of "chopped, tasteless vegetables." The patient denies any n/v, dysphagia, abdominal discomfort, diarrhea, or constipation. Modified [place] Symptom Assessment Scale: Patient Report Symptoms (Past 24 Hours) Assessment / At Goal Overall Physical Discomfort Mild | Pain Moderate | Better Dyspnea None | N/A N/V None | N/A Constipation None | N/A Anxiety None | N/A Depression Severe | Worse Fatigue Severe | Same Other | Review of Systems: Constitutional: - fever, + fatigue, - night sweats, + weight loss (this month only, subjectively) Eyes: - double vision, - eye pain or redness, loss vision OS (completely dark) ENMT: - sore throat, - rhinorrhea Respiratory: - cough Cardiovascular: - chest discomfort, - lightheadedness/fainting Gastrointestinal: - dysphagia, - diarrhea Genitourinary: - bloody urine, - dysuria Neurological: + headache, + balance problem due to pain, reports a sensation of numbness in her left hip prior to her fall Skin: - rashes, - skin lesions Psych: + depressed mood, no changes in cognition Hematologic: no mucocutaneous bleeding or easy bruising Past Medical History: Diagnosis Date Cancer (HCC) DM2 (diabetes mellitus, type 2) (HCC) HLD (hyperlipidemia) HTN (hypertension) Leukemia (HCC) Overweight (BMI 25.0-29.9) Thyroid disorder Past Surgical History: Procedure Laterality Date SECTION, LOW TRANSVERSE COLONOSCOPY N/A 04/14/2016 COLONOSCOPY BIOPSY performed by Shane Lynn MD at [facility] [place] ESOPHAGOGASTRODUODENOSCOPY TRANSORAL DIAGNOSTIC N/A 09/09/2016 ESOPHAGOGASTRODUODENOSCOPY performed by Hermila Cornejo MD at [facility] [place] NASAL/SINUS ENDOSCOPY W/MAXILLARY ANTROSTOMY Left 05/03/2017 FUNCTIONAL ENDOSCOPY SINUS SURGERY WITH MAXILLARY ANTROSTOMY performed by Kandice Montelongo MD at [facility] [place] PROPH TX N/P/PLTWR W/WO METHYLMETHACRYLATE FEMUR Left 04/19/2017 INSERTION CEPHALOMEDULLARY NAIL FEMUR performed by Shane Sam MD at [facility] OR/ Periop [place] SIGMOIDOSCOPY FLX DX W/COLLJ SPEC BR/WA IF PFRMD N/A 04/14/2016 SIGMOIDOSCOPY DIAGNOSTIC performed by Shane Lynn MD at ENDO/GI [place] SIGMOIDOSCOPY FLX DX W/COLLJ SPEC BR/WA IF PFRMD N/A 07/29/2016 SIGMOIDOSCOPY DIAGNOSTIC performed by Niharika Lam MD at ENDO/GI [place] SIGMOIDOSCOPY FLX DX W/COLLJ SPEC BR/WA IF PFRMD N/A 09/09/2016 SIGMOIDOSCOPY DIAGNOSTIC performed by Hermila Cornejo MD at [facility]GI [place] SIGMOIDOSCOPY FLX W/BIOPSY SINGLE/MULTIPLE 09/09/2016 SIGMOIDOSCOPY BIOPSY performed by Hermila Cornejo MD at ENDO/GI UPPER GASTROINTESTINAL ENDOSCOPY N/A 04/14/2016 ESOPHAGOGASTRODUODENOSCOPY performed by Shane Lynn MD at ENDO/GI UPPER GASTROINTESTINAL ENDOSCOPY N/A 04/14/2016 ESOPHAGOGASTRODUODENOSCOPY BIOPSY performed by Shane Lynn MD at ENDO/GI UPPER GASTROINTESTINAL ENDOSCOPY N/A 07/29/2016 ESOPHAGOGASTRODUODENOSCOPY performed by Niharika Lam MD at ENDO/GI Social History: Social History Substance Use Topics Smoking status: Never Smoker Smokeless tobacco: Never Used Alcohol use No Family History: Family History Problem Relation Age of Onset Other Mother during Other Father etoh liver Diabetes Sister Diabetes Brother Diabetes Type II Other Hypertension Other Amblyopia Neg Hx Strabismus Neg Hx Blindness Neg Hx Cataract Neg Hx Glaucoma Neg Hx Macular Degen Neg Hx Retinal Detachment Neg Hx Allergies: Review of patient's allergies indicates no known allergies. Scheduled Meds: acyclovir (ZOVIRAX) tablet 800 mg 800 mg Oral BID brimonidine (ALPHAGAN P) 0.15 % ophthalmic solution 1 Drop 1 Drop Left Eye TID carboxymethylcellulose (REFRESH PLUS) 0.5 % ophthalmic solution 1 Drop 1 Drop Both Eyes QID clonazePAM (KLONOPIN) tablet 0.25 mg 0.25 mg Oral QHS cyclopentolate (CYCLODRYL) 1 % ophthalmic solution 1 Drop 1 Drop Left Eye TID ergocalciferol (VITAMIN D-2) capsule 50,000 Units 50,000 Units Oral Q7 Days insulin aspart (NOVOLOG FLEXPEN) injection PEN 0-14 Units 0-14 Units Subcutaneous ACHS insulin glargine (LANTUS SOLOSTAR) injection PEN 10 Units 10 Units Subcutaneous QHS levothyroxine (SYNTHROID) tablet 50 mcg 50 mcg Oral QDAY 30 min before breakfast melatonin tablet 3 mg 3 mg Oral QHS neomycin/polymyxin/dexamethasone (MAXITROL) ophthalmic suspension 1 Drop 1 Drop Left Eye BID penicillin V potassium (VEETID) tablet 750 mg 750 mg Oral BID [START ON 05/05/2017] pentamidine (NEBUPENT) nebulizer solution 300 mg 300 mg Inhalation Q28 Days polyethylene glycol 3350 (MIRALAX) packet 17 g 17 g Oral QDAY prednisolone acetate (PRED FORTE) 1 % ophthalmic suspension 1 Drop 1 Drop Left Eye QID propranolol (INDERAL) tablet 20 mg 20 mg Oral TID senna/docusate (SENOKOT-S) tablet 1 Tab 1 Tab Oral BID traZODone (DESYREL) tablet 25 mg 25 mg Oral QHS Continuous Infusions: sodium chloride 0.9 % infusion 20 mL/hr at 05/03/17 1301 sodium chloride 0.9 % infusion 75 mL/hr at 05/04/17 0617 PRN and Respiratory Meds:acetaminophen Q4H PRN, alteplase PRN (Mixing Plant Operator from Rx) , amitriptyline/gabapentin/emu oil(#) Q8H PRN, benzonatate TID PRN, fentaNYL citrate PF Q2H PRN, magnesium sulfate 4 g/50 mL PRN, mineral oil/white petrolatum TID PRN, oxyCODONE Q4H PRN, potassium chloride PRN (Mixing Plant Operator from Rx) , prochlorperazine Q6H PRN OR prochlorperazine Q6H PRN Vital Signs: Last Filed in 24 hours Vital Signs: 24 hour Range BP: 128/57 (05/04 1115) Temp: 36.6 C (97.8 F) (05/04 1115) Pulse: 66 (05/04 1115) Respirations: 14 PER MINUTE (05/04 1115) SpO2: 100 % (05/04 1115) O2 Delivery: None (Room Air) (05/04 111) SpO2 Pulse: 66 (05/03 1615) BP: (102-177)/(54-72) Temp: [36.5 C (97.7 F)-37.1 C (98.8 F)] Pulse: [61-69] Respirations: [14 PER MINUTE-20 PER MINUTE] SpO2: [92 %-100 %] O2 Delivery: None (Room Air) Physical Exam: Constitutional: moderate to severe malnutrition : : appropriate grooming Eyes: pupil deformity OS : right pupil reactive : no pain with eye movements : conjugate gaze ENMT: MMM : OP clear : : : Neck: supple and symmetric : : Respiratory: no accessory muscle use : CTAB : Cardiovascular: RRR : systolic ejection murmur at RUSB : : Abdomen: s/nt/nd : : Hematologic/Lymphatic: no cervical or supraclavicular LAD Musculoskeletal: : generalized muscle atrophy : normal tone : strength 4+/5 at all extremities except LLE (could not assess fully due to pain from fracture : Skin: no LE edema : no suspicious lesions or rashes; left facial eason signs and left raccoon eye Neurological: No aphasia or ataxic speech : no clonus : : Psychiatric: linear thought : : : : depressed and withdrawn affect : : Lab Review: Hematology: Lab Results Component Value Date HGB 8.2 05/04/2017 HCT 23.1 05/04/2017 PLTCT 102 05/04/2017 WBC 3.7 05/04/2017 NEUT 47 05/04/2017 ANC 1.70 05/04/2017 LYMPH 18 04/19/2017 ALC 1.40 05/04/2017 BRUCE 15 05/04/2017 AMC 0.60 05/04/2017 ABC 0.00 05/04/2017 BASOPHILS 2 04/19/2017 MCV 104.2 05/04/2017 MCHC 35.4 05/04/2017 MPV 6.4 05/04/2017 RDW 19.6 05/04/2017 , Coagulation: Lab Results Component Value Date PTT 28.7 05/03/2017 INR 1.0 05/03/2017 and General Chemistry: Lab Results Component Value Date NA 135 05/04/2017 K 3.8 05/04/2017 CL 108 05/04/2017 GAP 4 05/04/2017 BUN 16 05/04/2017 CR 0.73 05/04/2017 GLU 77 05/04/2017 CA 9.3 05/04/2017 ALBUMIN 2.6 05/04/2017 LACTIC 0.7 04/19/2017 OBSCA 1.35 04/22/2017 MG 2.2 05/04/2017 TOTBILI 0.6 05/04/2017 MRI Brain 04/29 -- official impression 1. Mild multifocal left cerebral convexity subarachnoid hemorrhage and multifocal bilateral cerebral subarachnoid hemosiderin deposition, improved since prior CT head. No new intracranial hemorrhage is identified. 2. Enhancing nodular medial right cerebellar lesion and numerous additional smaller enhancing juxtacortical bilateral cerebral, basal nuclei, and brainstem lesions with mild associated multifocal vasogenic edema likely reflecting leukemia. Opportunistic intracranial infection could appear similar. 3. Small simple appearing left convexity subdural effusion Associated attestation - Blank Acosta MD - 05/05/2017 9:45 AM CDT Formatting of this note may be different from the original. ATTESTATION I personally performed the omalley portions of the E/M visit, discussed case with resident and concur with resident documentation of history, physical exam, assessment, and treatment plan unless otherwise noted. Will work on sx mgmt as above, do not anticipate goals changing this hospitalization. They remember me from July hospitalization and are agreeable for us to reconvene regarding goals of care if/when further information is known about diagnosis. Staff name: Blank Acosta MD Date: 05/04/2017 * Kandice Montelongo MD - 05/02/2017 10:00 PM CDT Associated Order(s): CONSULT OTOLARYNGOLOGY (ENT) PHYSICIAN Formatting of this note may be different from the original. ATTESTATION I personally performed the omalley portions of the E/M visit, discussed case with resident and concur with resident documentation of history, physical exam, assessment, and treatment plan unless otherwise noted. Briefly, 61 year old female with AML s/p HCT who has new brain lesions and L maxillary sinus mass. Appears to have some changes to bony orbit and patient is numb in V2. Possible malignancy vs cyst/sinus disease vs IFS. Given exam findings and imaging, this warrants further work up via maxillary antrostomy. Will plan on going to OR today for maxillary antrostomy, possible maxillectomy. Consent obtained with interpreter and translator. Risks discussed including bleeding, infection, crusting, greater numbness, failure to diagnose, damage to eye or skull base, anosmia, deformity. We will proceed. -Please type and cross two units of blood. -Please have platelets available as well -Hold anticoagulation -Continue NPO Staff name: Kandice Montelongo MD Date: 05/03/2017 LUCAS/HNS Consult Note Admission Date: 04/30/2017 LOS: 2 days Reason for Consult: Sinus mass/disease Consult type: Opinion Assessment/Plan Donna Wilde is a 61 y.o. female with a history of AML s/p HSCT who was admitted after recent fall, found to have new brain lesions. During workup discovered what appears to be left maxillary sinus mass. CT shows a partially enhancing mass in the left maxillary sinus that does not fall in dependent pattern expected with maxillary sinusitis. Previous MRI shows T1 and T2 enhancing maxillary sinus mass or lesion that appears to be invading the inferior orbital rim with questionable extension into orbit. Agree with need for biopsy. Plan to discuss with staff. - NPO at midnight - Hold anticoagulation - Tentatively add on for OR on 05/03, need to discuss with staff Will discuss with Dr. Johnson. Thank you for this consult. Please page with any questions or concerns. Yao Aranda MD Otolaryngology Resident, PGY-2 History of Present Illness: Donna Wilde is a 61 y.o. female with a complex PMH including AML s/p HSCT who was admitted after a recent fall. Found to have new brain lesions on admission. Seen by NSG, unable to biopsy, recommend large volume LP. Seen by ID, found to be toxoplasma IgG positive, workup in process, recommend large volume LP. Patient also worked up for new eye symptoms on presentation. Seen by ophtho who noted panuveitis with a left eye orbital mass with suggestion of origination from the left maxillary sinus. Consult for biopsy of suspected left maxillary sinus mass. Briefly, patient denies congestion for most of her life. Began experiencing congestion recently, perhaps L>R. Denies nasal discharge, occasionally has clear drainage. Patient denies maxillary pain or tenderness. Has questionable tooth pain, states left maxillary alveolar ridge mildly tender. Never had head or neck surgery, never had sinus surgery. Past Medical History: Diagnosis Date Cancer (HCC) DM2 (diabetes mellitus, type 2) (HCC) HLD (hyperlipidemia) HTN (hypertension) Leukemia (HCC) Overweight (BMI 25.0-29.9) Thyroid disorder Past Surgical History: Procedure Laterality Date SECTION, LOW TRANSVERSE COLONOSCOPY N/A 04/14/2016 COLONOSCOPY BIOPSY performed by Shane Lynn MD at [facility] [place] ESOPHAGOGASTRODUODENOSCOPY TRANSORAL DIAGNOSTIC N/A 09/09/2016 ESOPHAGOGASTRODUODENOSCOPY performed by Hermila Cornejo MD at ENDO/GI [place] PROPH TX N/P/PLTWR W/WO METHYLMETHACRYLATE FEMUR Left 04/19/2017 INSERTION CEPHALOMEDULLARY NAIL FEMUR performed by Shane Sam MD at [facility]/ [facility] [place] SIGMOIDOSCOPY FLX DX W/COLLJ SPEC BR/WA IF PFRMD N/A 04/14/2016 SIGMOIDOSCOPY DIAGNOSTIC performed by Shane Lynn MD at ENDO/GI [place] SIGMOIDOSCOPY FLX DX W/COLLJ SPEC BR/WA IF PFRMD N/A 07/29/2016 SIGMOIDOSCOPY DIAGNOSTIC performed by Niharika Lam MD at [facility]O/GI [place] SIGMOIDOSCOPY FLX DX W/COLLJ SPEC BR/WA IF PFRMD N/A 09/09/2016 SIGMOIDOSCOPY DIAGNOSTIC performed by Hermila Cornejo MD at [facility] [place] SIGMOIDOSCOPY FLX W/BIOPSY SINGLE/MULTIPLE 09/09/2016 SIGMOIDOSCOPY BIOPSY performed by Hermila Cornejo MD at ENDO/GI UPPER GASTROINTESTINAL ENDOSCOPY N/A 04/14/2016 ESOPHAGOGASTRODUODENOSCOPY performed by Shane Lynn MD at ENDO/GI UPPER GASTROINTESTINAL ENDOSCOPY N/A 04/14/2016 ESOPHAGOGASTRODUODENOSCOPY BIOPSY performed by Shane Lynn MD at ENDO/GI UPPER GASTROINTESTINAL ENDOSCOPY N/A 07/29/2016 ESOPHAGOGASTRODUODENOSCOPY performed by Niharika Lam MD at ENDO/GI Social History Social History Marital status: Spouse name: Armen Number of children: 8 Years of education: N/A 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 Scheduled Meds: acyclovir (ZOVIRAX) tablet 800 mg 800 mg Oral BID brimonidine (ALPHAGAN P) 0.15 % ophthalmic solution 1 Drop 1 Drop Left Eye TID carboxymethylcellulose (REFRESH PLUS) 0.5 % ophthalmic solution 1 Drop 1 Drop Both Eyes QID clonazePAM (KLONOPIN) tablet 0.25 mg 0.25 mg Oral QHS cyclopentolate (CYCLODRYL) 1 % ophthalmic solution 1 Drop 1 Drop Left Eye TID enoxaparin (LOVENOX) syringe 40 mg 40 mg Subcutaneous Q24H* ergocalciferol (VITAMIN D-2) capsule 50,000 Units 50,000 Units Oral Q7 Days insulin aspart (NOVOLOG FLEXPEN) injection PEN 0-14 Units 0-14 Units Subcutaneous ACHS insulin glargine (LANTUS SOLOSTAR) injection PEN 10 Units 10 Units Subcutaneous QHS levothyroxine (SYNTHROID) tablet 50 mcg 50 mcg Oral QDAY 30 min before breakfast melatonin tablet 3 mg 3 mg Oral QHS neomycin/polymyxin/dexamethasone (MAXITROL) ophthalmic suspension 1 Drop 1 Drop Left Eye BID penicillin V potassium (VEETID) tablet 750 mg 750 mg Oral BID [START ON 05/05/2017] pentamidine (NEBUPENT) nebulizer solution 300 mg 300 mg Inhalation Q28 Days polyethylene glycol 3350 (MIRALAX) packet 17 g 17 g Oral QDAY prednisolone acetate (PRED FORTE) 1 % ophthalmic suspension 1 Drop 1 Drop Left Eye QID propranolol (INDERAL) tablet 20 mg 20 mg Oral TID senna/docusate (SENOKOT-S) tablet 1 Tab 1 Tab Oral BID traZODone (DESYREL) tablet 25 mg 25 mg Oral QHS Continuous Infusions: sodium chloride 0.9 % infusion 75 mL/hr at 05/02/17 0045 PRN and Respiratory Meds:acetaminophen Q4H PRN, alteplase PRN (Mixing Plant Operator from Rx) , amitriptyline/gabapentin/emu oil(#) Q8H PRN, benzonatate TID PRN, fentaNYL citrate PF Q2H PRN, magnesium sulfate 4 g/50 mL PRN, mineral oil/white petrolatum TID PRN, oxyCODONE Q4H PRN, potassium chloride PRN (Mixing Plant Operator from Rx) , prochlorperazine Q6H PRN OR prochlorperazine Q6H PRN Review of Systems: 10 point ROS conducted and negative except as noted in HPI. Vital Signs: Last Filed in 24 hours Vital Signs: 24 hour Range BP: 142/59 (05/02 2114) Temp: 36.6 C (97.9 F) (05/02 1843) Pulse: 66 (05/02 2114) Respirations: 16 PER MINUTE (05/02 1843) SpO2: 100 % (05/02 1843) O2 Delivery: None (Room Air) (05/02 1843) BP: (123-153)/(54-69) Temp: [36.4 C (97.5 F)-36.8 C (98.3 F)] Pulse: [62-72] Respirations: [14 PER MINUTE-20 PER MINUTE] SpO2: [98 %-100 %] O2 Delivery: None (Room Air) Physical Exam: General appearance: Donna is in no distress and is alert and oriented, ecchymosis of the face Communication ability: communicates by voice, normal quality Neuro: V2 is weak on the L Head: normocephalic, no lacerations or lesions, there is ecchymosis scattered across L side of face/head, no tenderness to palpation over facial bones Eyes: Some scleral injection, with some gaze deviation External ear: normal, no lesions or deformities Otoscopic: R canal with diffuse cerumen impaction, L canal clear, tympanic membranes intact, TM opaque without any evidence of fluid, no bulging or retraction Hearing: grossly intact External nose: normal, no lesions or deformities, nares patent with no drainage Nasal: mucosa and septum normal Oral cavity: poor dentition with previous repair, normal occlusion, no gingival inflammation, no lip or mucosal lesions, no palate mobility Oropharynx: tongue normal, posterior pharynx without erythema or exudate, no old or active bleeding Neck: supple, no masses, trachea midline, No cervical adenopathy, thyromegaly, or parotid masses Respiratory: normal respiratory effort Flexible Endoscopic Examination: After obtaining verbal consent, a flexible fiberoptic laryngoscope inserted into the nasal cavities. The nasal anatomy is normal without mass or mucosal lesion. The laryngoscope was then passed into the nasopharynx, which showed normal eustachian tube openings. The fossae of Rosenmller were clear with normal elevation of the soft palate and were without any evidence of masses or lesions. Passing the flexible scope into the oropharynx and hypopharynx revealed that the base of tongue and vallecula were without lesions. The epiglottis is upright. The piriform sinuses were without lesions or any pooling of secretions or visible aspiration. The false vocal cords and true vocal cords were without lesions. The TVC were symmetric and mobile bilaterally. The visualized part of the subglottis is clear. There was no extrinsic mass effects in the pharynx. The flexible fiberoptic scope was then removed and reinserted into the L naris and positioned superiolateral. No purulence or drainage from L maxillary os, no masses or lesions identified. The patient tolerated the procedure well without complications Rigid Endoscopic Examination: Rigid nasal endoscopy was performed. A 30 degree rigid endoscope was introduced into the left naris. The middle meatus on the left was clear. The maxillary, ethmoid and sphenoid openings were patent. The nasofrontal duct was patent. Lab/Radiology/Other Diagnostic Tests: Pertinent labs reviewed Pertinent radiology reviewed. CT showing enhancing mass/lesion in left maxillary sinus that does not follow dependent pattern. MRI with T1 and T2 enhancement of mass/lesion that appears to be invading the inferior orbital rim. Problem List: Patient Active Problem List Diagnosis Date Noted Subarachnoid hemorrhage following injury, with loss of consciousness (HCC) 04/28/2017 Traumatic brain injury (HCC) 04/28/2017 Lesion of cerebellum 04/28/2017 Closed displaced intertrochanteric fracture of left femur ([facility]) 04/28/2017 Cognitive impairment 04/28/2017 Impaired mobility and activities of daily living 04/28/2017 SAH (subarachnoid hemorrhage) ([facility]) 04/27/2017 Delirium 04/25/2017 Sleep disturbance 04/25/2017 Hyponatremia 04/25/2017 Vitamin D deficiency 04/25/2017 Acute pain due to trauma 04/20/2017 Cerebellar stroke ([facility]) 04/20/2017 Abrasion of face 04/20/2017 Hypertension 04/20/2017 Hypokalemia 04/20/2017 Acute blood loss anemia 04/20/2017 Thrombocytopenia ([facility]) 04/20/2017 Pancytopenia ([facility]) 04/20/2017 DM w/o complication type II ([facility]) 04/20/2017 Closed intertrochanteric fracture of left femur ([facility]) 04/20/2017 Dysphagia 04/20/2017 Traumatic compression fracture of T11 thoracic vertebra ([facility]) 04/20/2017 Sympathetic storming 04/20/2017 Facial laceration 04/20/2017 Facial abrasion 04/20/2017 Uveitis 04/20/2017 Leukocytopenia 04/20/2017 Hypothyroid 04/20/2017 Hip fracture ([facility]) 04/16/2017 Subarachnoid bleed ([facility]) 04/16/2017 Pneumonia of both lungs due to infectious organism 04/15/2017 Panuveitis of left eye 04/07/2017 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 04/05/2017 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 03/24/2017 Hyperbilirubinemia 02/19/2017 Watery diarrhea 02/19/2017 Hypoxia 02/16/2017 Pneumonia 02/16/2017 Sepsis ([facility]) 02/16/2017 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remission ([facility]) 02/16/2017 H/O bone marrow transplant ([facility]) 02/16/2017 History of pancytopenia 02/16/2017 Thrombocytopenia ([facility]) 01/05/2017 Primary hyperparathyroidism ([facility]) 12/01/2016 Lesion of oral mucosa 12/01/2016 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[facility]) 10/27/2016 Hypomagnesemia 10/20/2016 Hypogammaglobulinemia ([facility]) 10/16/2016 Thrush 10/13/2016 Hypokalemia 09/24/2016 Electrolyte imbalance 09/22/2016 Chemotherapy-induced neuropathy (HCC) 09/22/2016 Pancytopenia due to chemotherapy (HCC) 09/22/2016 Recurrent Clostridium difficile diarrhea 09/22/2016 Depression 08/14/2016 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 Total bilirubin, elevated 08/13/2016 Hyperopia with presbyopia of both eyes 06/24/2016 Hyperparathyroidism (HCC) 06/10/2016 Wemhm-fjzkef-hwpq disease, acute (HCC) 04/16/2016 Severe malnutrition (HCC) 12/02/2015 AML (acute myelogenous leukemia) 11/30/2015 Retinal edema right eye 09/27/2015 Nuclear sclerosis of both eyes 04/09/2015 Retinopathy of both eyes 04/09/2015 Vitreous hemorrhage of both eyes (HCC) 04/09/2015 Myeloproliferative disorder 01/21/2015 HTN (hypertension) 01/21/2015 Vision impairment 01/21/2015 HLD (hyperlipidemia) 01/09/2015 DM (diabetes mellitus) 01/09/2015 Yao Aranda MD Otolaryngology Resident, PGY-2 * Yossi Morataya MD - 05/02/2017 7:03 PM CDT Associated Order(s): CONSULT OPHTHALMOLOGY PHYSICIAN Formatting of this note may be different from the original. Ophthalmology Consult History and Physical - PGY2 CC/Reason for Consultation: "New brain lesions; need retinal exam" HPI: 61F with DM2 and AML admitted after a fall, found to have new brain lesions; ophthalmology consulted due to need for retinal exam. Pt has a eye hx of CRVO OU (Bishara 02/24) and NAION OS (Quick 03/2017), and panuveitis associated with rubeosis and increased IOP OS with NLP of unclear etiology. Has been seen in clinic for uveitis since the end of March; was noted to be NLP at that time. Seen by Dr. Wall in clinic with plans for vitreus biopsy however she has now been mostly on the inpatient service since admission 04/20/17 for a fall with SAH. Patient initially improved enough for discharge to rehab unit, but readmitted due to another fall. Now new lesions have been found on MRI concerning for malignancy versus infectious. Pt reports not seeing well in the left eye which is at her baseline. Reports left eye pain at baseline "in the front of the eye" at a 8/10 intensity; improved with blinking. Pain is intermittent. Similar pain that has been going on for months. Improved with fentanyl. No pain with eye movement. +photophobia. With intermittent tearing. She is on maxitrol ointment bid to left eye and dorzolamide/timolol TID for high IOP Past Medical History: Past Medical History: Diagnosis Date Cancer (HCC) DM2 (diabetes mellitus, type 2) (HCC) HLD (hyperlipidemia) HTN (hypertension) Leukemia (HCC) Overweight (BMI 25.0-29.9) Thyroid disorder Past Surgical History: Past Surgical History: Procedure Laterality Date SECTION, LOW TRANSVERSE COLONOSCOPY N/A 04/14/2016 COLONOSCOPY BIOPSY performed by [facility] Lynn MD [facility] [place] ESOPHAGOGASTRODUODENOSCOPY TRANSORAL DIAGNOSTIC N/A 09/09/2016 ESOPHAGOGASTRODUODENOSCOPY performed by Hermila Cornejo MD at [facility] [place] PROPH TX N/P/PLTWR W/WO METHYLMETHACRYLATE FEMUR Left 04/19/2017 INSERTION CEPHALOMEDULLARY NAIL FEMUR performed by Shane Sam MD at [facility]/ Periop [place] SIGMOIDOSCOPY FLX DX W/COLLJ SPEC BR/WA IF PFRMD N/A 04/14/2016 SIGMOIDOSCOPY DIAGNOSTIC performed by Shane Lynn MD at [facility] [place] SIGMOIDOSCOPY FLX DX W/COLLJ SPEC BR/WA IF PFRMD N/A 07/29/2016 SIGMOIDOSCOPY DIAGNOSTIC performed by Niharika Lam MD at [facility] [place] SIGMOIDOSCOPY FLX DX W/COLLJ SPEC BR/WA IF PFRMD N/A 09/09/2016 SIGMOIDOSCOPY DIAGNOSTIC performed by Hermila Cornejo MD at [facility] [place] SIGMOIDOSCOPY FLX W/BIOPSY SINGLE/MULTIPLE 09/09/2016 SIGMOIDOSCOPY BIOPSY performed by Hermila Cornejo MD at [facility] UPPER GASTROINTESTINAL ENDOSCOPY N/A 04/14/2016 ESOPHAGOGASTRODUODENOSCOPY performed by Shane Lynn MD at [facility] UPPER GASTROINTESTINAL ENDOSCOPY N/A 04/14/2016 ESOPHAGOGASTRODUODENOSCOPY BIOPSY performed by Shane Lynn MD at [facility] UPPER GASTROINTESTINAL ENDOSCOPY N/A 07/29/2016 ESOPHAGOGASTRODUODENOSCOPY performed by Niharika Lam MD at [facility] Past Ocular History: CRVO OU (Bishara 02/2017) NAION OS (Quick 03/2017) Panuveitis (03/2017) Allergies: No Known Allergies Social History: Social History Social History Marital status: Spouse name: Armen Number of children: 8 Years of education: N/A 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 Social History Main Topics Smoking status: Never Smoker Smokeless tobacco: Never Used Alcohol use No Drug use: No Sexual activity: Not Currently Other Topics Concern Not on file Social History Narrative Medications: Scheduled Meds: acyclovir (ZOVIRAX) tablet 800 mg 800 mg Oral BID brimonidine (ALPHAGAN P) 0.15 % ophthalmic solution 1 Drop 1 Drop Left Eye TID carboxymethylcellulose (REFRESH PLUS) 0.5 % ophthalmic solution 1 Drop 1 Drop Both Eyes QID clonazePAM (KLONOPIN) tablet 0.25 mg 0.25 mg Oral QHS enoxaparin (LOVENOX) syringe 40 mg 40 mg Subcutaneous Q24H* ergocalciferol (VITAMIN D-2) capsule 50,000 Units 50,000 Units Oral Q7 Days insulin aspart (NOVOLOG FLEXPEN) injection PEN 0-14 Units 0-14 Units Subcutaneous ACHS insulin glargine (LANTUS SOLOSTAR) injection PEN 10 Units 10 Units Subcutaneous QHS levothyroxine (SYNTHROID) tablet 50 mcg 50 mcg Oral QDAY 30 min before breakfast melatonin tablet 3 mg 3 mg Oral QHS neomycin/polymyxin/dexamethasone (MAXITROL) ophthalmic suspension 1 Drop 1 Drop Left Eye BID penicillin V potassium (VEETID) tablet 750 mg 750 mg Oral BID [START ON 05/05/2017] pentamidine (NEBUPENT) nebulizer solution 300 mg 300 mg Inhalation Q28 Days polyethylene glycol 3350 (MIRALAX) packet 17 g 17 g Oral QDAY propranolol (INDERAL) tablet 20 mg 20 mg Oral TID senna/docusate (SENOKOT-S) tablet 1 Tab 1 Tab Oral BID traZODone (DESYREL) tablet 25 mg 25 mg Oral QHS Continuous Infusions: sodium chloride 0.9 % infusion 75 mL/hr at 05/02/17 0045 PRN and Respiratory Meds:acetaminophen Q4H PRN, alteplase PRN (Mixing Plant Operator from Rx) , amitriptyline/gabapentin/emu oil(#) Q8H PRN, benzonatate TID PRN, fentaNYL citrate PF Q2H PRN, magnesium sulfate 4 g/50 mL PRN, mineral oil/white petrolatum TID PRN, oxyCODONE Q4H PRN, potassium chloride PRN (Mixing Plant Operator from Rx) , prochlorperazine Q6H PRN OR prochlorperazine Q6H PRN Family History: No known history of ocular disease PHYSICAL EXAM Near Visual Acuity: CC: OD 20/60, PH 20/ni OS NLP Pupils: 1 mm/1 mm, 2+/nonreactive, +OD RAPD by reverse Tonopen: 18 OD, 20 OS Motility: Full OU Adnexa: WNL OD; 1+ upper lid edema OS Conjunctiva: White/Quiet OU Cornea: Clear OD; nasal pterygia OU A/C: Deep OU; unable to fully assess for inflammation at bedside Iris: Round/Flat OD; irregularly shaped with posterior synechiae OS Lens: NS OU DILATED FUNDUS EXAM: No view OS (Dilated with 2.5% Phenylephrine and 1% Tropicamide OU. Effects last 4-6 hours ) Optic Nerve: 0.3 p/f/s OD; unable due to vitreus haze OS Macula: Attached and flat OD; unable OS Vessels: WNL OD; unable OS Vitreous: No stranding or heme OD; vitreus haze OS Periphery: No breaks or tears OD; unable OS LABS/IMAGING: - 04/29/17 MRI brain with/without: Radiology read: "Impression Enhancing nodular medial right cerebellar lesion and numerous additional smaller enhancing juxtacortical bilateral cerebral, basal nuclei, and brainstem lesions with mild associated multifocal vasogenic edema likely reflecting leukemia. Opportunistic intracranial infection could appear similar." --- Personally reviewed: appears to have opacity in the left maxillary sinus extending into the left orbit - 05/01/17 CT Maxifacial/sinus w contrast: Impression "1. Right mastoiditis. 2. Mild maxillary sinus disease greater on the left. 3. Small periapical abscess involving left maxillary premolar. 4. Stable enhancing right cerebellar lesion. " -- Personally reviewed; appears to have an opacity in the left maxillary sinus extending into the left orbit A/P: 1. Panuveitis, left eye - Versus endophthalmitis - Etiology DDx includes metastasis versus infection - Associated with developing brain lesions, and in the setting of AML, primary team has scheduled a repeat LP 2. 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 Low vision, left eye - She has no light perception in the left eye, since 03/2017 - Hx of NAOIN - No acute intervention at this time Recommendations: - Continue maxitrol and brimonidine 0.15%, left eye - Start prednisolone acetate 1% QID, left eye (ordered) - Start cyclopentolate 1% TID, left eye (ordered) - Recommend consult ENT for biopsy of left mastoid sinus mass - We will follow with you and see with uveitis specialist tomorrow Patient seen with Dr. Morataya, Attending Physician. Thank you for the consult. If you have any questions do not hesitate to contact us. Hiwot Lau MD, MS Ophthalmology, PGY2 P [phone] [facility] [address] [place] [address] All documentation in bold italics represents Dr. Yossi Morataya MD's assessment, exam, and recommendations for treatment. Documentation not in bold italics was provided by the resident. ATTESTATION I personally performed the omalley portions of the E/M visit, discussed case with resident and concur with resident documentation of history, physical exam, assessment, and treatment plan unless otherwise noted. Staff name: Yossi Morataya MD Date: 05/03/2017 * Lindsey Liang MD - 05/02/2017 5:23 PM CDT Associated Order(s): CONSULT NEUROLOGY PHYSICIAN Formatting of this note may be different from the original. Neurology Consultation Name: Donna Wilde Admission Date: 04/30/2017 LOS: 2 days 4115/ ASSESSMENT: Active Problems: Retinal edema right eye 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HCC) Subarachnoid bleed (HCC) Lesion of cerebellum Closed displaced intertrochanteric fracture of left femur (HCC) Reason for Consult: Neuro team was following with pt while in rehab. Admitted for abnormal head MRI Consult type: Written opinion only Donna Wilde is a R handed 61 y.o. female with pmhx of AML s/p HSCT, DMII, HLD, and HTN being seen for neurologic evaluation regarding enhancing lesion in R cerebellum and numerous smaller lesions throughout the brain found on MRI. Neuro exam reveals decreased vision in left eye and left leg strength limited by pain secondary to fracture. Imaging/Diagnostic Studies: - CT head 04/18/17 1. No significant change in scattered moderate subarachnoid hemorrhage. No hydrocephalus or new intracranial hemorrhage. 2. Unchanged low-attenuation within the right superior cerebellum, again suggestive of acute to subacute infarct in the superior cerebellar artery territory. 3. Interval decrease in size of bilateral scalp hematomas with stable small left periorbital hematoma. 4. Increased conspicuity or development of a thin left frontal convexity hypodense subdural collection suggestive of subdural hygroma. - CTA head and neck 04/16/17 with no significant stenosis -Echo 02/17/17 1. Normal size left ventricle cavity with mild basal septal hypertrophy 2. Normal systolic function, EF ~ 60% 3. Right ventricle is mildly dilated with qualitatively normal function 4. Mild right atrium enlargement 5. Aortic sclerosis without stenosis 6. Main pulmonary artery appears at least moderately dilated 7. Estimated peak systolic PA pressure= 26 mmHg 8. No pericardial effusion 9. Abnormal appearance of the right lung base by ultrasound, consider alternative imaging if clinically indicated -MRI brain w and w/o contrast 04/29/17: 1. Mild multifocal left cerebral convexity subarachnoid hemorrhage and multifocal bilateral cerebral subarachnoid hemosiderin deposition, improved since prior CT head. No new intracranial hemorrhage is identified. 2. Enhancing nodular medial right cerebellar lesion and numerous additional smaller enhancing juxtacortical bilateral cerebral, basal nuclei, and brainstem lesions with mild associated multifocal vasogenic edema likely reflecting leukemia. Opportunistic intracranial infection could appear similar. 3. Small simple appearing left convexity subdural effusion. Impression: At this time, suspect infection vs lymphoma. RECOMMENDATIONS: > Agree with large volume tap to aid in finding etiology of enhancing lesions > If patient develops symptoms that we can assist with such as seizure,etc, please call and we will be happy to assist further Thank you for this consult. Please page neurology medical receptionist assistant with any further questions or concerns. Neurology will sign off. Patient discussed with Dr. Pollard __ History of Present Illness: Donna Wilde is a R handed 61 y.o. female with pmhx of AML s/p HSCT, DMII, HLD, and HTN being seen for neurologic evaluation regarding enhancing lesion in R cerebellum and numerous smaller lesions throughout the brain found on MRI. The patient was initially admitted on 04/17/17 for subarachnoid hemorrhage and left femur fracture secondary to fall. At that time CT of head was showing a hypodensity in the right cerebellum that was reported as likely subactute infarct. She was not worked up for this hypodensity initially but neurology was then consulted when she was discharged to rehab. We reviewed the CT scan and found it to be a bit unusual for infarct so ordered and MRI w contrast which revealed an enhancing lesion. She was then admitted back to the BMT service where ID consult was obtained and concern for infection. Patient reports she has had several falls over past 3-4 months, always to her left side. She does report some trouble controlling movements in her left leg and occasionally left hand at home prior to this admission. She also has had some numbness in her left leg prior to admission. She does not recall her fall on 04/17 and it was unwitnessed. She remembers being at home and then waking up in [facility]. She is s/p fixation of left femur. She has DMII for past 20 years, HTN, HLD. Denies tobacco, alchol, or ilicit drug use. No personal or family hx of stroke. She has vision loss in left eye that occurred around 1 month ago, sudden, painless. Evaluated by opthamology who believes this is panuveitis secondary to tumor vs infection but improving. No complaints of fever, chills, headache, chest pain, dyspnea, muscle weakness, sensory deficits, nausea, vomiting. Past Medical History: Diagnosis Date Cancer (HCC) DM2 (diabetes mellitus, type 2) (HCC) HLD (hyperlipidemia) HTN (hypertension) Leukemia (HCC) Overweight (BMI 25.0-29.9) Thyroid disorder Past Surgical History: Procedure Laterality Date SECTION, LOW TRANSVERSE COLONOSCOPY N/A 04/14/2016 COLONOSCOPY BIOPSY performed by Shane Lynn MD [facility] ESOPHAGOGASTRODUODENOSCOPY TRANSORAL DIAGNOSTIC N/A 09/09/2016 ESOPHAGOGASTRODUODENOSCOPY performed by Hermila Cornejo MD at [facility] [place] PROPH TX N/P/PLTWR W/WO METHYLMETHACRYLATE FEMUR Left 04/19/2017 INSERTION CEPHALOMEDULLARY NAIL FEMUR performed by Shane Sam MD at [facility]/ Periop IA SIGMOIDOSCOPY FLX DX W/COLLJ SPEC BR/WA IF PFRMD N/A 04/14/2016 SIGMOIDOSCOPY DIAGNOSTIC performed by Shane Lynn MD at [facility] SIGMOIDOSCOPY FLX DX W/COLLJ SPEC BR/WA IF PFRMD N/A 07/29/2016 SIGMOIDOSCOPY DIAGNOSTIC performed by Niharika Lam MD at [facility] SIGMOIDOSCOPY FLX DX W/COLLJ SPEC BR/WA IF PFRMD N/A 09/09/2016 SIGMOIDOSCOPY DIAGNOSTIC performed by Hermila Cornejo MD at [facility] SIGMOIDOSCOPY FLX W/BIOPSY SINGLE/MULTIPLE 09/09/2016 SIGMOIDOSCOPY BIOPSY performed by Hermila Cornejo MD at [facility] UPPER GASTROINTESTINAL ENDOSCOPY N/A 04/14/2016 ESOPHAGOGASTRODUODENOSCOPY performed by Shane Lynn MD at [facility] UPPER GASTROINTESTINAL ENDOSCOPY N/A 04/14/2016 ESOPHAGOGASTRODUODENOSCOPY BIOPSY performed by Shane Lynn MD at [facility] UPPER GASTROINTESTINAL ENDOSCOPY N/A 07/29/2016 ESOPHAGOGASTRODUODENOSCOPY performed by Niharika Lam MD at [facility] Social History Social History Marital status: Spouse name: Armen Number of children: 8 Years of education: N/A 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 Social History Main Topics Smoking status: Never Smoker Smokeless tobacco: Never Used Alcohol use No Drug use: No Sexual activity: Not Currently Other Topics Concern Not on file Social History Narrative Family History Problem Relation Age of Onset Diabetes Type II Hypertension Other Mother during Other Father etoh liver Amblyopia Neg Hx Strabismus Neg Hx Blindness Neg Hx Cataract Neg Hx Glaucoma Neg Hx Macular Degen Neg Hx Retinal Detachment Neg Hx Diabetes Sister Diabetes Brother Family history reviewed; non-contributory Immunizations (includes history and patient reported): Immunization History Administered Date(s) Administered Flu Vaccine Quadrivalent=>3 Yo (Preservative Free) 06/25/2016 Hepatitis B Vaccine Adult 3 Dose IM 12/15/2016 Hepatitis B Vaccine Ill Patient 4 Dose IM 10/13/2016 Hib conj vaccine, 4 dose (PRP-T) IM (ActHIB) 10/13/2016, 12/15/2016, 2016 IPV 10/13/2016, 12/15/2016, 03/12/2017 Meningococcal Conjug Vaccine IM (MenACWY-D)(Menactra) 10/13/2016 Pneumococcal Vaccine(13-Oxana Peds/immunocompromised adult) 10/13/2016, 2016, 03/12/2017 Tdap Vaccine 10/13/2016, 12/15/2016, 03/12/2017 Allergies: Review of patient's allergies indicates no known allergies. Medications: Prescriptions Prior to Admission Medication Sig acetaminophen (TYLENOL) 325 mg tablet [...] before meals and at bedtime. [facility] [place] One Touch Verio meter brimonidine (ALPHAGAN P) 0.15 % ophthalmic solution Apply 1 Drop to left eye as directed three times daily. carboxymethylcellulose (REFRESH PLUS) 0.5 % dpet Apply 1 Drop to both eyes four times daily. cholecalciferol (VITAMIN D-3) 400 unit tab Take 2 Tabs by mouth daily. clonazePAM (KLONOPIN) 0.5 mg tablet Take 0.5 Tabs by mouth at bedtime daily. dorzolamide-timolol(+) (COSOPT) 2-0.5 % ophthalmic solution Apply 1 Drop to left eye as directed three times daily. enoxaparin (LOVENOX) 40 mg injection syringe Inject 0.4 mL under the skin daily for 35 days. ergocalciferol (VITAMIN D-2) 50,000 unit capsule Take 1 Cap by mouth every 7 days. ferrous sulfate (FEOSOL, FEROSUL) 325 mg (65 mg iron) tablet Take 1 Tab by mouth three times daily with meals for 30 days. Take on an empty stomach at least 1 hour before or 2 hours after food. guaiFENesin (ROBITUSSIN) 100 mg/5 mL oral solution Take 10 mL by mouth every 4 hours as needed. insulin aspart (NOVOLOG FLEXPEN) 100 unit/mL injection PEN Inject 3 Units under the skin three times daily with meals. insulin glargine (LANTUS SOLOSTAR) 100 unit/mL (3 mL) injection PEN Inject 8 Units under the skin at bedtime daily. Insulin [place] (Disposable) 31 gauge x 1/4" ndle Use as needed for insulin administration lancets (ACCU-CHEK FASTCLIX) [facility] To check blood sugars before meals and at bed time. levothyroxine (SYNTHROID) 50 mcg tablet Take 1 Tab by mouth daily 30 minutes before breakfast. magnesium oxide (MAG-OX) 400 mg tablet Take 1 Tab by mouth twice daily. melatonin 3 mg tab Take 1 Tab by mouth at bedtime daily for 60 days. mineral oil/white petrolatum (ABSORBASE) oint apply to hands and affected areas as needed wdiumiik-msshatjlp-evcfcjspuxcba (MAXITROL) 3.5 mg/g-10,000 unit/g-0.1 % ophthalmic ointment Apply 1 cm to left eye as directed twice daily. oxyCODONE (ROXICODONE, OXY-IR) 5 mg tablet Take 1-2 Tabs by mouth every 4 hours as needed Earliest Fill Date: 04/27/17 penicillin V potassium (VEETID) 250 mg tablet Take 3 tabs by mouth twice daily. pentamidine (NEBUPENT) 300 mg/6 mL nebulizer solution Inhale 6 mL by mouth into the lungs every 30 days. Last 03/05 polyethylene glycol 3350 (MIRALAX) 17 g packet Take 1 Packet by mouth daily for 30 days. propranolol (INDERAL) 20 mg tablet Take 1 Tab by mouth three times daily for 30 days. senna/docusate (SENOKOT-S) 8.6/50 mg tablet Take 1 Tab by mouth twice daily for 30 days. traZODone (DESYREL) 50 mg tablet Take 0.5 Tabs by mouth at bedtime daily for 60 days. No current facility-administered medications on file prior to encounter. Current Outpatient Prescriptions on File Prior to Encounter Medication Sig Dispense Refill acetaminophen (TYLENOL) 325 mg tablet Take 2 Tabs by mouth every 4 hours as needed. 0 acyclovir (ZOVIRAX) 800 mg tablet Take 1 Tab by mouth twice daily. 60 Tab 5 albuterol (VENTOLIN HFA, PROAIR HFA, PROVENTIL HFA) 90 mcg/actuation inhaler Inhale 2 Puffs by mouth into the lungs every 4 hours as needed for Wheezing or Shortness of Breath. Shake well before use. 3 Inhaler 3 bacitracin 500 unit/g topical ointment Apply to left face laceration. 14 g 0 benzonatate (TESSALON PERLES) 100 mg capsule Take 1 Cap by mouth three times daily as needed for Cough. 20 Cap 0 blood sugar diagnostic (ONETOUCH VERIO) test strip 1 Strip before meals and at bedtime. 100 Strip 6 Blood-Glucose Meter misc One Touch Verio meter 1 Each 0 brimonidine (ALPHAGAN P) 0.15 % ophthalmic solution Apply 1 Drop to left eye as directed three times daily. 5 mL 0 carboxymethylcellulose (REFRESH PLUS) 0.5 % dpet Apply 1 Drop to both eyes four times daily. 50 Each 4 cholecalciferol (VITAMIN D-3) 400 unit tab Take 2 Tabs by mouth daily. 30 Each 0 clonazePAM (KLONOPIN) 0.5 mg tablet Take 0.5 Tabs by mouth at bedtime daily. 60 Tab 5 dorzolamide-timolol(+) (COSOPT) 2-0.5 % ophthalmic solution Apply 1 Drop to left eye as directed three times daily. 10 mL 0 enoxaparin (LOVENOX) 40 mg injection syringe Inject 0.4 mL under the skin daily for 35 days. 35 Syringe 0 ergocalciferol (VITAMIN D-2) 50,000 unit capsule Take 1 Cap by mouth every 7 days. 12 Cap 0 ferrous sulfate (FEOSOL, FEROSUL) 325 mg (65 mg iron) tablet Take 1 Tab by mouth three times daily with meals for 30 days. Take on an empty stomach at least 1 hour before or 2 hours after food. 90 Tab 0 guaiFENesin (ROBITUSSIN) 100 mg/5 mL oral solution Take 10 mL by mouth every 4 hours as needed. 118 mL 0 insulin aspart (NOVOLOG FLEXPEN) 100 unit/mL injection PEN Inject 3 Units under the skin three times daily with meals. 3 Package 3 insulin glargine (LANTUS SOLOSTAR) 100 unit/mL (3 mL) injection PEN Inject 8 Units under the skin at bedtime daily. 3 Package 3 Insulin [place] (Disposable) 31 gauge x 1/4" ndle Use as needed for insulin administration 100 Each 6 lancets (ACCU-CHEK FASTCLIX) MISC To check blood sugars before meals and at bed time. 100 Each 3 levothyroxine (SYNTHROID) 50 mcg tablet Take 1 Tab by mouth daily 30 minutes before breakfast. 90 Tab 3 magnesium oxide (MAG-OX) 400 mg tablet Take 1 Tab by mouth twice daily. 180 Tab 3 melatonin 3 mg tab Take 1 Tab by mouth at bedtime daily for 60 days. 60 Tab 0 mineral oil/white petrolatum (ABSORBASE) oint apply to hands and affected areas as needed vbgpuhuo-glydypvza-jwfulqcsvxnqz (MAXITROL) 3.5 mg/g-10,000 unit/g-0.1 % ophthalmic ointment Apply 1 cm to left eye as directed twice daily. 3.5 g 2 oxyCODONE (ROXICODONE, OXY-IR) 5 mg tablet Take 1-2 Tabs by mouth every 4 hours as needed Earliest Fill Date: 04/27/17 90 Tab 0 penicillin V potassium (VEETID) 250 mg tablet Take 3 tabs by mouth twice daily. 180 Tab 3 pentamidine (NEBUPENT) 300 mg/6 mL nebulizer solution Inhale 6 mL by mouth into the lungs every 30 days. Last 03/05 polyethylene glycol 3350 (MIRALAX) 17 g packet Take 1 Packet by mouth daily for 30 days. 30 Packet 0 propranolol (INDERAL) 20 mg tablet Take 1 Tab by mouth three times daily for 30 days. 90 Tab 0 senna/docusate (SENOKOT-S) 8.6/50 mg tablet Take 1 Tab by mouth twice daily for 30 days. 60 Tab 0 traZODone (DESYREL) 50 mg tablet Take 0.5 Tabs by mouth at bedtime daily for 60 days. 30 Tab 0 Review of Systems: Constitutional: Imbalance Eyes: negative Ears, nose, mouth, throat, and face: negative Respiratory: negative Cardiovascular: negative Gastrointestinal: negative Genitourinary: negative Integument/breast: negative Hematologic/lymphatic: negative Musculoskeletal: negative Neurological: negative Behavioral/Psych: negative Endocrine: negative Allergic/Immunologic: negative Physical Exam: Vital Signs: Last Filed In 24 Hours Vital Signs: 24 Hour Range BP: 140/61 (05/02 1637) Temp: 36.8 C (98.2 F) (05/02 1637) Pulse: 62 (05/02 1637) Respirations: 16 PER MINUTE (05/02 1637) SpO2: 99 % (05/02 1637) O2 Delivery: None (Room Air) (05/02 1637) BP: (123-140)/(53-69) Temp: [36.4 C (97.5 F)-36.8 C (98.3 F)] Pulse: [62-72] Respirations: [14 PER MINUTE-20 PER MINUTE] SpO2: [98 %-100 %] O2 Delivery: None (Room Air) Intensity Pain Scale 0-10 (Pain 1): 9 (05/02/17 1355) HEENT: normocephalic, eyes open with no discharge, nares patent, large echymosis over left face Chest: normal configuration, non labored breathing, chest rise equal b/l CV: normal rate and regular rhythm, no murmur, distal pulses palpable Pulmonary: lungs are clear bilaterally, no wheezes/crackles/rales Abd: soft, non- tender, no masses, no organomegaly Skin: ecchymosis on left side Psych: normal Neuro: Mental status: Oriented to person/place/time/situation Memory: Recent and remote memory intact Attention: Good span, follows conversation. Fund of knowledge: Appropriate, Level of consciousness: Alert Speech: Fluency: Normal Comprehension: Normal Articulation: Normal Repetition: Normal Naming: Normal CN II-XII: Fundoscopic exam without obvious abnormalities on right, blurred OD on left. Visual garcia intact in all garcia in right eye but no vision in left eye, EOMI, facial sensation intact. Symmetrical facial movement. Hearing grossly intact to conversation. Strong cough, elevates palate b/l, uvula midline. Strong shoulder shrug. Tongue midline. Motor: Normal tone and bulk. No abnormal movement, fasciculation or pronator drift. NF5 NE5 SA EF EE WE WF FF FE FA HF HE KF KE DF PF R 5 5 5 5 5 5 5 5 5 5 5 5 5 5 L 5 5 5 5 5 5 5 5 Limited by pain Limited by pain Limited by pain 5 5 5 Sensory: Light touch: intact, without sensory level Pin prick: intact Vibration (tuning fork 256 Hz): intact Proprioception: intact Cold temp: intact Reflexes: No clonus, khadijah, cross adductor. Plantar reflex down on right, mute on left Right Left Triceps 2 2 Biceps 2 2 Brachioradialis 2 2 Patella 2 2 Ankle 0 0 Cerebellar Funciton/fine movement: normal finger to nose, heel to graham normal on right but limited on left due to pain Gait: Limited by pain Lab/Radiology/Other Diagnostic Tests: 24-hour labs: Results for orders placed or performed during the hospital encounter of (from the past 24 hour(s)) MAGNESIUM Collection Time: 05/02/17 5:51 AM Result Value Ref Range Magnesium 2.3 1.6 - 2.6 mg/dL CBC AND DIFF Collection Time: 05/02/17 5:51 AM Result Value Ref Range White Blood Cells 3.7 (L) 4.5 - 11.0 K/UL RBC 2.19 (L) 4.0 - 5.0 M/UL Hemoglobin 7.8 (L) 12.0 - 15.0 GM/DL Hematocrit 22.8 (L) 36 - 45 % MCV 104.2 (H) 80 - 100 FL MCH 35.5 (H) 26 - 34 PG MCHC 34.0 32.0 - 36.0 G/DL RDW 19.9 (H) 11 - 15 % Platelet Count 85 (L) 150 - 400 K/UL MPV 7.1 7 - 11 FL Neutrophils 54 41 - 77 % Lymphocytes 28 24 - 44 % Monocytes 15 (H) 4 - 12 % Eosinophils 3 0 - 5 % Basophils 0 0 - 2 % Absolute Neutrophil Count 2.00 1.8 - 7.0 K/UL Absolute Lymph Count 1.00 1.0 - 4.8 K/UL Absolute Monocyte Count 0.50 0 - 0.80 K/UL Absolute Eosinophil Count 0.10 0 - 0.45 K/UL Absolute Basophil Count 0.00 0 - 0.20 K/UL BASIC METABOLIC PANEL Collection Time: 05/02/17 5:51 AM Result Value Ref Range Sodium 135 (L) 137 - 147 MMOL/L Potassium 4.7 3.5 - 5.1 MMOL/L Chloride 108 98 - 110 MMOL/L CO2 22 21 - 30 MMOL/L Anion Gap 5 3 - 12 Glucose 116 (H) 70 - 100 MG/DL Blood Urea Nitrogen 16 7 - 25 MG/DL Creatinine 0.83 0.4 - 1.00 MG/DL Calcium 9.1 8.5 - 10.6 MG/DL eGFR Non >60 >60 mL/min eGFR >60 >60 mL/min POC GLUCOSE Collection Time: 05/02/17 9:34 AM Result Value Ref Range Glucose, POC 107 (H) 70 - 100 MG/DL Glucose: (!) 116 (05/02/17 0551) POC Glucose (Download): (!) 107 (05/02/17 0904) Pertinent radiology reviewed. Lindsey Liang MD Neurology PGY2 Associated attestation - Ada Nolen MD - 05/16/2017 11:18 PM CDT Formatting of this note may be different from the original. ATTESTATION I personally performed the omalley portions of the E/M visit, discussed case with resident and concur with resident documentation of history, physical exam, assessment, and treatment plan unless otherwise noted. I saw and examined the patient today on rounds with Dr. Liang and the rest of the neurology consultation team. Laboratory results were reviewed. I also reviewed recent relevant diagnostic studies independently and agree with the findings listed. These include MRI of the head and lumbar spine. The patient's 12-lead ECG shows evidence of sinus tachycardia, incomplete right bundle branch block and a probable age- indeterminate inferior infarction. I agree with Dr. Liang's impression and summarize my own impression as follows: - Acute/subacute right superior cerebellar artery (SCA) ischemic stroke. - Subarachnoid hemorrhage. - Multiple white matter lesions. This is suspicious for lymphoma but septic emboli could also appear this way. - Gait disturbance. I agree with Dr. Liang's recommendations from overnight. Thank you for requesting a neurology consultation. Please call with any questions. Ada Nolen MD Date: May 03, 2017 Neurology/Movement Disorders Attending Pager [phone] * Evangelista Fernandez MD - 05/02/2017 9:12 AM CDT Associated Order(s): CONSULT NEUROSURGERY PHYSICIAN Formatting of this note may be different from the original. Neurosurgery Consult History and Physical Note Admission Date: 04/30/2017 LOS: 2 days Reason for Consult: MRI head 04/29 with large enhancing right cerebellar lesion and numerous smaller enhancing lesions with edema surrounding, concerning for opportunistic infection vs leukemia. Please evaulate for possible bx Consult type: Opinion Consulting Physician: Larry Deng MD Requesting Physician: Rachel Pfeiffer APRN History of Present Illness: Donna Wilde is a 61 y.o. 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 Pt reports 3-4 months of falls to the left side and approximately 2 months of L eye complete vision loss. Pt was seen by neurology for a hypodense lesion of CT head concerning for possible stroke on 04/29 and an MRI was recommended. MRI completed 04/29 which shows multiple enhancing lesions and edema concerning for opportunistic infection vs leukemia. Small volume CSF obtained 04/12 negative cytology for leukemia, negative culture, negative fungal studies. ID involed with recs for further CSF studies. Opthalmology involved for evaluation of left eye panuveitis. Last note 04/07 with concern for infectious uveitis vs tumor invasion. Reported plan of vitreous biopsy, however documented biopsy procedure or pathology reports available at this time. Opthalmology consulted again on 05/01, currently pending recs. Pt denies headaches, stable weakness of LLE related to femur fracture, pain well controlled, new weakness, sensory changes, nausea/vomiting, incontinence. Telephone american sign language interpreter used for history. [place] [id number]. Past Medical History: Past Medical History: Diagnosis Date Cancer (HCC) DM2 (diabetes mellitus, type 2) (HCC) HLD (hyperlipidemia) HTN (hypertension) Leukemia (HCC) Overweight (BMI 25.0-29.9) Thyroid disorder Past Surgical History: Past Surgical History: Procedure Laterality Date SECTION, LOW TRANSVERSE COLONOSCOPY N/A 04/14/2016 COLONOSCOPY BIOPSY performed by Shane Lynn MD at [facility] [place] ESOPHAGOGASTRODUODENOSCOPY TRANSORAL DIAGNOSTIC N/A 09/09/2016 ESOPHAGOGASTRODUODENOSCOPY performed by Hermila Cornejo MD at [facility] [place] PROPH TX N/P/PLTWR W/WO METHYLMETHACRYLATE FEMUR Left 04/19/2017 INSERTION CEPHALOMEDULLARY NAIL FEMUR performed by Shane Sam MD at [facility]/ [facility] [place] SIGMOIDOSCOPY FLX DX W/COLLJ SPEC BR/WA IF PFRMD N/A 04/14/2016 SIGMOIDOSCOPY DIAGNOSTIC performed by Shane Lynn MD at [facility] [place] SIGMOIDOSCOPY FLX DX W/COLLJ SPEC BR/WA IF PFRMD N/A 07/29/2016 SIGMOIDOSCOPY DIAGNOSTIC performed by Niharika Lam MD at [facility] [place] SIGMOIDOSCOPY FLX DX W/COLLJ SPEC BR/WA IF PFRMD N/A 09/09/2016 SIGMOIDOSCOPY DIAGNOSTIC performed by Hermila Cornejo MD at [facility] [place] SIGMOIDOSCOPY FLX W/BIOPSY SINGLE/MULTIPLE 09/09/2016 SIGMOIDOSCOPY BIOPSY performed by Hermila Cornejo MD at [facility] UPPER GASTROINTESTINAL ENDOSCOPY N/A 04/14/2016 ESOPHAGOGASTRODUODENOSCOPY performed by Shane Lynn MD at [facility]GI UPPER GASTROINTESTINAL ENDOSCOPY N/A 04/14/2016 ESOPHAGOGASTRODUODENOSCOPY BIOPSY performed by Shane Lynn MD at [facility]GI UPPER GASTROINTESTINAL ENDOSCOPY N/A 07/29/2016 ESOPHAGOGASTRODUODENOSCOPY performed by Niharika Lam MD at ENDO/GI Social History: Social History Substance Use Topics Smoking status: Never Smoker Smokeless tobacco: Never Used Alcohol use No Family History: Family History Problem Relation Age of Onset Diabetes Type II Hypertension Other Mother during Other Father etoh liver Amblyopia Neg Hx Strabismus Neg Hx Blindness Neg Hx Cataract Neg Hx Glaucoma Neg Hx Macular Degen Neg Hx Retinal Detachment Neg Hx Diabetes Sister Diabetes Brother Allergies: Review of patient's allergies indicates no known allergies. Medications: CORRAL BOSS: Prescriptions Prior to Admission Medication Sig acetaminophen (TYLENOL) 325 mg tablet [...] before meals and at bedtime. [facility] [place] One Touch Verio meter brimonidine (ALPHAGAN P) 0.15 % ophthalmic solution Apply 1 Drop to left eye as directed three times daily. carboxymethylcellulose (REFRESH PLUS) 0.5 % dpet Apply 1 Drop to both eyes four times daily. cholecalciferol (VITAMIN D-3) 400 unit tab Take 2 Tabs by mouth daily. clonazePAM (KLONOPIN) 0.5 mg tablet Take 0.5 Tabs by mouth at bedtime daily. dorzolamide-timolol(+) (COSOPT) 2-0.5 % ophthalmic solution Apply 1 Drop to left eye as directed three times daily. enoxaparin (LOVENOX) 40 mg injection syringe Inject 0.4 mL under the skin daily for 35 days. ergocalciferol (VITAMIN D-2) 50,000 unit capsule Take 1 Cap by mouth every 7 days. ferrous sulfate (FEOSOL, FEROSUL) 325 mg (65 mg iron) tablet Take 1 Tab by mouth three times daily with meals for 30 days. Take on an empty stomach at least 1 hour before or 2 hours after food. guaiFENesin (ROBITUSSIN) 100 mg/5 mL oral solution Take 10 mL by mouth every 4 hours as needed. insulin aspart (NOVOLOG FLEXPEN) 100 unit/mL injection PEN Inject 3 Units under the skin three times daily with meals. insulin glargine (LANTUS SOLOSTAR) 100 unit/mL (3 mL) injection PEN Inject 8 Units under the skin at bedtime daily. Insulin [place] (Disposable) 31 gauge x 1/4" ndle Use as needed for insulin administration lancets (ACCU-CHEK FASTCLIX) [facility] [place] blood sugars before meals and at bed time. levothyroxine (SYNTHROID) 50 mcg tablet Take 1 Tab by mouth daily 30 minutes before breakfast. magnesium oxide (MAG-OX) 400 mg tablet Take 1 Tab by mouth twice daily. melatonin 3 mg tab Take 1 Tab by mouth at bedtime daily for 60 days. mineral oil/white petrolatum (ABSORBASE) oint apply to hands and affected areas as needed gcdhicli-odlkymptu-hrqsvtjptaoxo (MAXITROL) 3.5 mg/g-10,000 unit/g-0.1 % ophthalmic ointment Apply 1 cm to left eye as directed twice daily. oxyCODONE (ROXICODONE, OXY-IR) 5 mg tablet Take 1-2 Tabs by mouth every 4 hours as needed Earliest Fill Date: 04/27/17 penicillin V potassium (VEETID) 250 mg tablet Take 3 tabs by mouth twice daily. pentamidine (NEBUPENT) 300 mg/6 mL nebulizer solution Inhale 6 mL by mouth into the lungs every 30 days. Last 03/05 polyethylene glycol 3350 (MIRALAX) 17 g packet Take 1 Packet by mouth daily for 30 days. propranolol (INDERAL) 20 mg tablet Take 1 Tab by mouth three times daily for 30 days. senna/docusate (SENOKOT-S) 8.6/50 mg tablet Take 1 Tab by mouth twice daily for 30 days. traZODone (DESYREL) 50 mg tablet Take 0.5 Tabs by mouth at bedtime daily for 60 days. Inpatient: Scheduled Meds: acyclovir (ZOVIRAX) tablet 800 mg 800 mg Oral BID brimonidine (ALPHAGAN P) 0.15 % ophthalmic solution 1 Drop 1 Drop Left Eye TID carboxymethylcellulose (REFRESH PLUS) 0.5 % ophthalmic solution 1 Drop 1 Drop Both Eyes QID cholecalciferol (VITAMIN D-3) tablet 2,000 Units 2,000 Units Oral QDAY clonazePAM (KLONOPIN) tablet 0.25 mg 0.25 mg Oral QHS enoxaparin (LOVENOX) syringe 40 mg 40 mg Subcutaneous Q24H* ergocalciferol (VITAMIN D-2) capsule 50,000 Units 50,000 Units Oral Q7 Days insulin aspart (NOVOLOG FLEXPEN) injection PEN 0-14 Units 0-14 Units Subcutaneous ACHS insulin glargine (LANTUS SOLOSTAR) injection PEN 10 Units 10 Units Subcutaneous QHS levothyroxine (SYNTHROID) tablet 50 mcg 50 mcg Oral QDAY 30 min before breakfast melatonin tablet 3 mg 3 mg Oral QHS neomycin/polymyxin/dexamethasone (MAXITROL) ophthalmic suspension 1 Drop 1 Drop Left Eye BID penicillin V potassium (VEETID) tablet 750 mg 750 mg Oral BID [START ON 05/05/2017] pentamidine (NEBUPENT) nebulizer solution 300 mg 300 mg Inhalation Q28 Days polyethylene glycol 3350 (MIRALAX) packet 17 g 17 g Oral QDAY propranolol (INDERAL) tablet 20 mg 20 mg Oral TID senna/docusate (SENOKOT-S) tablet 1 Tab 1 Tab Oral BID traZODone (DESYREL) tablet 25 mg 25 mg Oral QHS Continuous Infusions: sodium chloride 0.9 % infusion 75 mL/hr at 05/02/17 0045 PRN and Respiratory Meds:acetaminophen Q4H PRN, alteplase PRN (Mixing Plant Operator from Rx) , benzonatate TID PRN, magnesium sulfate 4 g/50 mL PRN, mineral oil/white petrolatum TID PRN, oxyCODONE Q4H PRN, potassium chloride PRN (Mixing Plant Operator from Rx) , prochlorperazine Q6H PRN OR prochlorperazine Q6H PRN Review of Systems: Full 10 point review of systems negative except for HPI Physical Exam: Vital Signs: Last Filed in 24 hours Vital Signs: 24 hour Range BP: 134/64 (05/02 801) Temp: 36.4 C (97.5 F) (05/02 801) Pulse: 63 (05/02 801) Respirations: 16 PER MINUTE (05/02 801) SpO2: 100 % (05/02 801) O2 Delivery: None (Room Air) (05/02 801) BP: (117-140)/(53-77) Temp: [36.4 C (97.5 F)-37.1 C (98.7 F)] Pulse: [63-81] Respirations: [16 PER MINUTE-20 PER MINUTE] SpO2: [97 %-100 %] O2 Delivery: None (Room Air) General Appearance: Lethargic, no acute distress Lungs: Good air movement and equal chest rise bilaterally Heart: Regular rate and rhythm Abdomen: Soft, non-tender Extremities: No edema, redness or tenderness in the calves or thighs with exception: Left thigh with bandaged surgical wounds and tenderness to palpation. Neurologic Exam: Mental Status: Awake, lethargic, oriented x 3, Pupils: Pupils equal round and reactive to light. Left eye with questionable light perception and partial ptosis and down and out appearance. Cranial Nerves: Left partial CN III palsy, otherwise CN II - XII grossly intact Motor: AA EF EE G HF KF KE DF PF EHL Left 5 5 5 5 - 5 5 5 5 5 Right 5 5 5 5 5 5 5 5 5 5 LLE HF deferred 2/2 to recent femur fracture Normal muscle bulk and tone No pronator drift Sensation: Sensation intact to light touch throughout Deep Tendon Reflexes: Pa Ac Left 1 1 Right 1 1 Plantar responses toes downgoing bilaterally No clonus bilaterally Gait: Deferred Cerebellar: Dysmetria with FTN L > R LabTests: Hematology: Lab Results Component Value Date HGB 7.8 05/02/2017 HCT 22.8 05/02/2017 PLTCT 85 05/02/2017 WBC 3.7 05/02/2017 NEUT 54 05/02/2017 ANC 2.00 05/02/2017 LYMPH 18 04/19/2017 ALC 1.00 05/02/2017 BRUCE 15 05/02/2017 AMC 0.50 05/02/2017 ABC 0.00 05/02/2017 BASOPHILS 2 04/19/2017 MCV 104.2 05/02/2017 MCHC 34.0 05/02/2017 MPV 7.1 05/02/2017 RDW 19.9 05/02/2017 General Chemistry: Lab Results Component Value Date NA 135 05/02/2017 K 4.7 05/02/2017 CL 108 05/02/2017 CO2 22 05/02/2017 BUN 16 05/02/2017 CR 0.83 05/02/2017 GLU 116 05/02/2017 OBSCA 1.35 04/22/2017 CA 9.1 05/02/2017 MG 2.3 05/02/2017 PO4 2.3 04/26/2017 General Chemistry: Lab Results Component Value Date GAP 5 05/02/2017 ALBUMIN 2.1 04/22/2017 LACTIC 0.7 04/19/2017 TOTBILI 0.7 04/22/2017 DBILI 2.3 02/19/2017 TOTPROT 4.3 04/22/2017 LIPASE 5 08/04/2016 MICHELL 13 08/04/2016 AST 19 04/22/2017 ALT 5 04/22/2017 ALKPHOS 107 04/22/2017 LDH 167 03/05/2017 Radiology and other Diagnostics Review: MRI head, L-spine, and CT head reviewed for this admission. Assessment/Plan: Donna Wilde is a 61 y.o. female with PMHx AML s/p HSCT and recent MRI with multiple enhancing lesions concerning for leukemia vs infection. Neurosurgery consulted for for possible biopsy - No plans for biopsy at this time - Expected yield of frontal lesions would be low given size/location and cerebellar lesion imparts greater surgical risk of complication due to deep and infratentorial location - Would recommend repeat large volume LP with studies per ID note for further workup - Opthalmology recs pending, will follow - Neurosurgery will follow Plan, imaging, and patient reviewed with Dr. Ish Fernandez MD Please call [phone] with questions. * Yao Estrada MD - 05/01/2017 3:27 PM CDT Associated Order(s): CONSULT INFECTIOUS DISEASES PHYSICIAN Formatting of this note may be different from the original. . Infectious Diseases Initial Consult Today's Date: 05/01/2017 Admission Date: 04/30/2017 Reason for this consultation: New brain lesion in HSCT patient. Please provide recs on further work-up. Assessment: Right cerebellar enhancing lesion and numerous smaller [...] done by IR on 04/12 with 11 WBC, 94% lymphocytes, protein 68, glucose 70 - Toxoplasma CSF PCR negative 04/12 - CSF culture negative 04/12 - Crypto serum Ag negative 04/20 - Galactomannan negative 04/19 - Fungitell negative 04/19 - Histo, crypto, coccidioides workup negative 04/20 - 04/18 staph epidermidis + blood culture, contaminant S/p admission earlier this month, discharged 04/27 to rehab Left intertrochanteric femur fracture s/p cephalomedullary nailing 04/19 Diffuse subarachnoid hemorrhages - CT scans earlier in the month without any evidence of infection Admission 02/2017 with S. 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 Recommend workup for the following. Fungal: Histo / blasto / mucor / aspergillus Pyogenic abscess: (less likely given lymphocytic pleocytosis of previous CSF sample) DISC INSPECTOR lymphoma Toxopasmosis Atypical bacterial infection: Actinomyces / nocardia - Follow up ophthalmology recommendations - Recommend to consult neurosurgery as well for evaluation for biopsy - If unable to perform biopsy of the enhancing lesion in the cerebellum or vitreous biopsy (based on neurosurg/ophtho evaluation), would repeat LP with the following studies: - Obtain 3-5ml of CSF for AFB culture - Obtain 3-5ml of CSF for fungal culture - CSF bacterial culture - Cell counts w/ diff - CSF glucose, protein - CSF Toxoplasma PCR - CSF EBV PCR - can help to evaluate for primary DISC INSPECTOR lymphoma as an etiology - CSF galactomannan - CSF histo Ag - Check T spot - Check serum Toxoplasma IgG - Follow up pending studies: (not collected) cryptococcus ag/histo serum ag/ fungitell/galactomannan (negative during previous admission), blood cultures, fungal blood cultures, C diff. Seen and recommendations discussed with attending, Dr. Estrada. ID will follow. Call with any questions or concerns. ATTESTATION I have seen and examined the patient. I discussed the case with Dr. Boswell, the Infectious Diseases fellow. I concur with her findings documented in this note. I personally reviewed the history, laboratory and microbiology data as well as imaging studies. The content of this consult was modified by me where necessary. 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 Hx of GVHD. Now with loss of vision in left. Rim enhancing lesion present in right cerebellum. Patient previously followed by Dr. Christine and seen yesterday by Dr. Christine prior to transfer from inpatient rehab. Agree with plan formulated above with Dr. Boswell. Dr. Boswell and Dr. Milian will assume care of patient Thursday 05/03. Thank you for the consultation. Yao Estrada MD Date: 05/01/2017 History of Present Illness Donna Wilde is a 61 y.o. 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 She had multiple complications at that time including E. coli bacteremia and aspiration. She developed acute hxmds-cyddoj-vuls disease and was on steroids for some [...] admitted to the bone marrow transplant team. At the present time, the patient denies any concerns. She is not having headache , fever, chills, abdominal pain, nausea, vomiting, or diarrhea. Her vision is unchanged from previous, with essentially left eye blindness. She has been afebrile since admission yesterday with stable vital signs. Dr. Christine was consulted yesterday from our team and we have been asked to follow along on the inpatient side to recommend further workup for her brain lesions. Antimicrobial Start date End date Acyclovir prophylaxis 04/30 Penicillin V prophylaxis 04/30 Pentamidine prophylaxis To be given 05/05 Estimated Creatinine Clearance: 69.6 mL/min (based on Cr of 0.79). Past Medical History Past Medical History: Diagnosis Date Cancer (HCC) DM2 (diabetes mellitus, type 2) (HCC) HLD (hyperlipidemia) HTN (hypertension) Leukemia (HCC) Overweight (BMI 25.0-29.9) Thyroid disorder Past Surgical History Past Surgical History: Procedure Laterality Date SECTION, LOW TRANSVERSE COLONOSCOPY N/A 04/14/2016 COLONOSCOPY BIOPSY performed by Shane Lynn MD at [facility] [place] ESOPHAGOGASTRODUODENOSCOPY TRANSORAL DIAGNOSTIC N/A 09/09/2016 ESOPHAGOGASTRODUODENOSCOPY performed by Hermila Cornejo MD at [facility] [place] PROPH TX N/P/PLTWR W/WO METHYLMETHACRYLATE FEMUR Left 04/19/2017 INSERTION CEPHALOMEDULLARY NAIL FEMUR performed by Shane Sam MD at [facility]/ Periop [place] SIGMOIDOSCOPY FLX DX W/COLLJ SPEC BR/WA IF PFRMD N/A 04/14/2016 SIGMOIDOSCOPY DIAGNOSTIC performed by Shane Lynn MD at [facility] SIGMOIDOSCOPY FLX DX W/COLLJ SPEC BR/WA IF PFRMD N/A 07/29/2016 SIGMOIDOSCOPY DIAGNOSTIC performed by Niharika Lam MD at [facility] [place] SIGMOIDOSCOPY FLX DX W/COLLJ SPEC BR/WA IF PFRMD N/A 09/09/2016 SIGMOIDOSCOPY DIAGNOSTIC performed by Hermila Cornejo MD at [facility] [place] SIGMOIDOSCOPY FLX W/BIOPSY SINGLE/MULTIPLE 09/09/2016 SIGMOIDOSCOPY BIOPSY performed by Hermila Cornejo MD at [facility] UPPER GASTROINTESTINAL ENDOSCOPY N/A 04/14/2016 ESOPHAGOGASTRODUODENOSCOPY performed by Shane Lynn MD at [facility] UPPER GASTROINTESTINAL ENDOSCOPY N/A 04/14/2016 ESOPHAGOGASTRODUODENOSCOPY BIOPSY performed by Shane Lynn MD at [facility] UPPER GASTROINTESTINAL ENDOSCOPY N/A 07/29/2016 ESOPHAGOGASTRODUODENOSCOPY performed by Niharika Lam MD at [facility] Social History Social History Substance Use Topics Smoking status: Never Smoker Smokeless tobacco: Never Used Alcohol use No Family History Family History Problem Relation Age of Onset Diabetes Type II Hypertension Other Mother during Other Father etoh liver Amblyopia Neg Hx Strabismus Neg Hx Blindness Neg Hx Cataract Neg Hx Glaucoma Neg Hx Macular Degen Neg Hx Retinal Detachment Neg Hx Diabetes Sister Diabetes Brother Allergies No Known Allergies Review of Systems A comprehensive 14-point review of systems was negative with exception of: Fatigue Poor sleep Medications Scheduled Meds: acyclovir (ZOVIRAX) tablet 800 mg 800 mg Oral BID brimonidine (ALPHAGAN P) 0.15 % ophthalmic solution 1 Drop 1 Drop Left Eye TID carboxymethylcellulose (REFRESH PLUS) 0.5 % ophthalmic solution 1 Drop 1 Drop Both Eyes QID cholecalciferol (VITAMIN D-3) tablet 2,000 Units 2,000 Units Oral QDAY clonazePAM (KLONOPIN) tablet 0.25 mg 0.25 mg Oral QHS enoxaparin (LOVENOX) syringe 40 mg 40 mg Subcutaneous Q24H* ergocalciferol (VITAMIN D-2) capsule 50,000 Units 50,000 Units Oral Q7 Days insulin aspart (NOVOLOG FLEXPEN) injection PEN 0-14 Units 0-14 Units Subcutaneous ACHS insulin glargine (LANTUS SOLOSTAR) injection PEN 10 Units 10 Units Subcutaneous QHS levothyroxine (SYNTHROID) tablet 50 mcg 50 mcg Oral QDAY 30 min before breakfast melatonin tablet 3 mg 3 mg Oral QHS penicillin V potassium (VEETID) tablet 750 mg 750 mg Oral BID [START ON 05/05/2017] pentamidine (NEBUPENT) nebulizer solution 300 mg 300 mg Inhalation Q28 Days polyethylene glycol 3350 (MIRALAX) packet 17 g 17 g Oral QDAY propranolol (INDERAL) tablet 20 mg 20 mg Oral TID senna/docusate (SENOKOT-S) tablet 1 Tab 1 Tab Oral BID traZODone (DESYREL) tablet 25 mg 25 mg Oral QHS Continuous Infusions: sodium chloride 0.9 % infusion 75 mL/hr at 05/01/17 0828 PRN and Respiratory Meds:acetaminophen Q4H PRN, alteplase PRN (Mixing Plant Operator from Rx) , benzonatate TID PRN, magnesium sulfate 4 g/50 mL PRN, mineral oil/white petrolatum TID PRN, oxyCODONE Q4H PRN, potassium chloride PRN (Mixing Plant Operator from Rx) , prochlorperazine Q6H PRN OR prochlorperazine Q6H PRN Physical Examination Vital Signs: Last Vital Signs: 24 Hour Range BP: 117/77 (05/01 1240) Temp: 36.7 C (98 F) (05/01 1240) Pulse: 81 (05/01 1240) Respirations: 18 PER MINUTE (05/01 1240) SpO2: 97 % (05/01 1240) O2 Delivery: None (Room Air) (05/01 124) Height: 162.6 cm (64") (04/30 1740) BP: (117-154)/(52-77) Temp: [36.7 C (98 F)-37.1 C (98.7 F)] Pulse: [62-83] Respirations: [16 PER MINUTE-18 PER MINUTE] SpO2: [95 %-100 %] O2 Delivery: None (Room Air) General appearance: Alert, oriented, calm. NAD. Thin and frail appearing. HENT: Mucus membranes moist, small whitish lesion on the right distal tongue. Left face with old bruising, resolving. Eyes: EOM grossly intact, Conj nl. No subconjunctival hemorrhages. Left pupil nonreactive. Neck: Supple, no lymphadenopathy, thyroid not palpable Lungs: No wheezing, rhonchi, rales appreciated Heart: Regular rhythm, reg rate, faint systolic murmur, no peripheral edema Abdomen: Soft, non-tender, non-distended, normoactive bowel sounds, no hepatosplenomegaly, no masses Ext: No clubbing, cyanosis or edema Skin: Bruising over the left face as above. No rashes or jaundice. Lymph: No cervical, axillary or inguinal adenopathy Lab Review Hematology Recent Labs 04/29/17 0735 04/30/17 0800 05/01/17 0613 WBC 4.6 4.7 4.7 HGB 7.9* 7.5* 7.9* HCT 23.1* 22.1* 22.4* PLTCT 78* 83* 89* Chemistry Recent Labs 04/29/17 0735 04/30/17 0800 05/01/17 0613 NA 137 136* 137 K 3.9 4.1 3.9 CL 106 107 109 CO2 25 24 22 BUN 23 22 17 CR 0.77 0.86 0.79 GFR >60 >60 >60 GLU 82 77 73 CA 8.9 9.2 9.3 Microbiology, Radiology and other Diagnostics Review Microbiology data reviewed. Pertinent radiology images viewed. MRI head 04/29 reviewed - prior known subarachnoid hemorrhages, no new bleeding. Right cerebellar enhancing lesion with smaller enhancing lesions in other areas (b/l cerebral, basal nuclei, brainstem) - per radiology read likely represents leukemia or opportunistic infection. CT chest/abdomen/pelvis 04/30 reviewed - no official read available. Per our review no obvious enhancing lesions. Irma Boswell DO Pager [phone] Infectious Diseases Fellow, PGY4 in this encounter Miscellaneous Notes * Case Mgmt DC Plan - Alisa Mosqueda - 05/06/2017 12:12 PM CDT Case Management Progress Note NAME:Donna Wilde :1955 AGE: 61 y.o. ADMISSION DATE: 04/30/2017 DAYS ADMITTED: LOS: 6 days Todays Date: 05/06/2017 Plan Pt to dc home with [facility] services. Palliative SW to assist with outpt palliative care clinic appointment. Interventions ? Support Support: Pt/Family Updates re:POC or DC Plan ? Info or Referral Outpt palliative care clinic appointment / follow up needed. SW emailed outpt Palliative Care Team re need for outpt palliative care clinic appointment. Outpt team will contact Pt and/OR family regarding appointment time and date. ? Discharge Planning Discharge Planning: Home Health ? Medication Needs Medication Needs: Co-Pay Check ? Financial ? Legal ? Other Disposition ? Discharge Preparation When ready for discharge, who will be responsible for transporting?: Back to [address] ? Expected Discharge Expected Discharge Date: 05/14/17 ? Discharge Disposition Disposition: Home with Services ([facility], HH, Hospice, other) Services: Home Health Name, Phone & Fax: Other Name, Phone & Fax: [facility] [phone], fx [phone] ? [facility] Alisa Mosqueda LMSW * Case Mgmt DC Plan - Kylie Thompson RN - 05/06/2017 11:13 AM CDT Formatting of this note may be different from the original. Case Management Progress Note NAME:Donna Wilde :1955 AGE: 61 y.o. ADMISSION DATE: 04/30/2017 DAYS ADMITTED: LOS: 6 days Todays Date: 05/06/2017 Plan: DC to home today with family support and HHC services from [facility] [place] Interventions ? Support Support: Pt/Family Updates re:POC or DC Plan -Patient was seen on BMT rounds by team -Stable for dc to home today -NCM visited patient and son. Patient was up in chair, sleeping soundly -Son, Honorio, denies concerns for dc. States pt will have 03/05 care at home. Feels his mom will eat better at home. -PT worked with pt and son earlier today. Educated them on need for contact assistance with all mobility. Son agreeable to above -Discussed with son, [facility] [place] will have RN visit pt on 05/08/17 and PT on 05/10 ? Info or Referral ? Discharge Planning Discharge Planning: Home Health -[facility] at , [place] [phone] -Call to agency, spoke with Blank. Updated with dc to home today -Faxed signed orders -Will send AVS when available -The following was included on the AVS: [facility] . [facility] will have the nurse visit you on May 08 and the physical therapist on May 10. [facility] . [facility] quiana que la enfermera lo visite el sbado y el fisioterapeuta el lun. ? Medication Needs Medication Needs: Co-Pay Check -Copayments for the following meds were checked: Sulfadiazine 500 mg tabs, #240,$1.20 Pyrimethamine 25 mg tabs, #60, $3.70 Leucovorin 25 mg tabs, #30 $1.20 Posaconazole 100 mg tabs, #120, $3.70 ? Financial ? Legal ? Other Disposition ? Discharge Preparation When ready for discharge, who will be responsible for transporting?: Back to [address] ? Expected Discharge Expected Discharge Date: 05/14/17 ? Discharge Disposition Disposition: Home with Services (DME, HH, Hospice, other) Services: Home Health Name, Phone & Fax: Other Name, Phone & Fax: [facility] [phone], fx [phone] ? [facility] Kylie Thompson SKIN PEELING MACHINE OPERATOR Nurse Substance Abuse Specialist Ext [phone], Pgr [phone] * Case Mgmt DC Plan - Kylie Thompson RN - 05/05/2017 3:55 PM CDT Formatting of this note may be different from the original. Case Management Progress Note NAME:Donna Wilde :1955 AGE: 61 y.o. ADMISSION DATE: 04/30/2017 DAYS ADMITTED: LOS: 5 days Todays Date: 05/05/2017 Plan: DC possibly Wednesday. Home with C if progresses toward goals Due to language barrier, an interpreter and translator was present during BMT rounds and DC planning with this pt Diamond Driller mode: In person Diamond Driller/ ID Number: Juan Pablo Reinier Francois ? Support Support: Pt/Family Updates re:POC or DC Plan -Visit at bedside with team -Working toward dc to home if mobility and oral intake improve -Son, Honorio, was present and stated pt has ample family support if she dc to home. States she is awake at night wanting to be home. -Per Honorio, pt has a ramp to enter the home and all necessary DME -Pt agreeable to using [facility] again for RN, PT, OT and will offer [facility] aide ? Info or Referral ? Discharge Planning Discharge Planning: Home Health -[facility] at , [place] [phone] -Call to agency, spoke with Blank. Discussed case. They will be able to admit pt Sat/Sun if dc on Wednesday -They do not have OT but can provide PT and RN visits. In the past, pt has declined [facility] aide -Faxed update and unsigned orders ? Medication Needs Medication Needs: Co-Pay Check -Copayments for the following meds were checked: Sulfadiazine 500 mg tabs, #240, $1.20 Pyrimethamine 25 mg tabs, #60, $3.70 Leucovorin 25 mg tabs, #30 $1.20 Posaconazole 100 mg tabs, #120, $3.70 ? Financial ? Legal ? Other Disposition ? Discharge Preparation When ready for discharge, who will be responsible for transporting?: Back to [address] ? Expected Discharge Expected Discharge Date: 05/14/17 ? Discharge Disposition ? [facility] Kylie Thompson SKIN PEELING MACHINE OPERATOR Nurse Substance Abuse Specialist Ext [phone], Pgr [phone] * Care Coordination-Inpatient - Adolfo Solis MD - 05/05/2017 1:16 PM CDT On chart review, patient noted to have received 2 doses of tramadol for pain today. The plan appears to be for the patient to continue empiric therapy for toxoplasmosis and follow-up as an outpatient for repeat head imaging and reevaluation. The patient has been seen by our outpatient palliative care nurse in the past at [facility]. We will plan to touch base with the patient via a nursing visit in mid-May after results from follow-up imaging are received. Please do not hesitate to contact us with any further questions or needs. Adolfo Solis MD Hospice and Palliative Care, [phone] * Care Plan - Lindsay Tucker RN - 05/04/2017 7:46 PM CDT Problem: Discharge Planning Goal: Participation in plan of care Outcome: Goal Ongoing Pt updated on plan of care. Palliative and OncoPsych consulted. Team emphasized pt needs to get up and move and eat. Pt and spouse stated understanding, needs reinforced. * Case Mgmt DC Plan - Kylie Thompson RN - 05/04/2017 10:56 AM CDT Formatting of this note may be different from the original. Case Management Admission Assessment NAME:Donna Wilde : 1955 AGE: 61 y.o. ADMISSION DATE: 04/30/2017 DAYS ADMITTED: LOS: 4 days Todays Date: 05/04/2017 Source of Information: Patient and Plan: DC when medically stable: inpt rhb vs other Due to language barrier, an interpreter and translator was present during the history-taking and subsequent discussion (and for part of the physical exam) with this patient. Diamond Driller mode: In person Diamond Driller/ ID Number: Amairani Wong -Visit made with pt and -Also seen with team for rounds -Needing encouragement to improve oral intake, increase activity -PT and OT assisting Emergency Contact Extended Emergency Contact Information Primary Emergency Contact: Jocelynn Wilde [facility] Mobile Relation: Daughter Secondary Emergency Contact: Sejal Wilde [facility] Mobile Relation: Daughter DPOA Transportation Does the patient need discharge transport arranged?: No Transportation Name, Phone and Availability #1: Armen Does the patient use Medicaid Transportation?: No Expected Discharge Expected Discharge Date: 05/14/17 Living Situation Prior to Admission ? Living Arrangements Type of Residence: Home, dependent on others Living Arrangements: Spouse/significant other, Children Bathroom Shower / Tub: Tub/Shower Unit Bathroom Toilet: Standard Bathroom Equipment: Tub Transfer Bench Bathroom Accessibility: Accessible via Walker How many levels in the residence?: 2 (Patient has ramp to enter front of the home. She can live on main level) Can patient live on one level if needed?: Yes Support Systems: Spouse/Partner, Other family Assistance Needed: Yes Who provides assistance or could if needed?: , Armen Wilde. She also has 6 children. Sejal Hopkins, Honorio and Serge live nearby and are available to assist Are they in good health?: Yes Can support system provide 24/7 care if needed?: Yes Home Care Services: No ? Level of Function Prior level of function: Needs assist with ADLs Which ADLs require assistance?: cooking. cleaning, bathing, mobility Who assists with ADLs?: and family ? Cognitive Abilities Cognitive Abilities: Alert and Oriented Financial Resources ? Coverage Primary Insurance: Medicare Secondary Insurance: Medicaid Additional Coverage: RX ? Source of Income Source Of Income: SSDI ? Financial Assistance Needed? no Current/Previous Services ? PCP Na No PCP ? DME DME at home: Bedside Commode, Single Point Cane, Walker, Shower Chair, Transfer Bench ? Home Health Receiving home health: In the past Agency name: [facility] Would patient use this agency again?: Yes ? HD or PD Undergoing hemodialysis or peritoneal dialysis: No ? Tube/Enteral Feeds Receive tube/enteral feeds: No ? Infusion Receive infusions: Yes Infusion company: [facility] Would patient use this agency again?: Yes ? Private Duty Private duty help used: No ? HCBS Home and community based services: No ? Cholo Huffman: N/A ? Hospice Hospice: No ? Outpatient Therapy PT: No OT: No GUEST HOUSE MANAGER: No ? SNF/NH ? IPR IPR: In the past When did patient receive care?: Transferred from [facility] here and Jul 2016 Name of Facility: [facility] Would patient return for future services?: Yes ? LTACH LTACH: No ? Acute Hospital Stay Acute Hospital Stay: Yes Was patient's stay within the last 30 days?: Yes Name of hospital: [facility] Psychosocial Needs ? Mental Health Mental Health History: Yes Mental Health Symptoms: Withdrawal from friends and activities, Feeling depressed, Significant tiredness, low energy or problems sleeping ? Substance History History Smoking Status Never Smoker Smokeless Tobacco Never Used History Alcohol Use No History Drug Use No ? Abuse/Sexual Assault Are You Alone With The Patient?: Yes Have You Ever Been Hit, Hurt Or Threatened In Any Way In The Past 5 Years?: No Nurse Suspected Abuse?: No Kylie Thompson SKIN PEELING MACHINE OPERATOR Nurse Substance Abuse Specialist Ext [phone], Pgr [phone] * Anesthesia Post Op Day 1 - Philomena Gibbs SRNA - 05/04/2017 10:06 AM CDT Formatting of this note may be different from the original. Anesthesia Follow-Up Evaluation: Post-Procedure Day One Name: Donna Wilde : 1955 Age: 61 y.o. Sex: female Procedure Date: 05/03/2017 Procedure: Procedure(s): FUNCTIONAL ENDOSCOPY SINUS SURGERY WITH MAXILLARY ANTROSTOMY Physical Assessment Height: 162.6 cm (64") Weight: 58.8 kg (129 lb 10.1 oz) Vital Signs (Last Filed in 24 hours) BP: 143/61 (05/04 745) Temp: 36.9 C (98.4 F) (05/04 745) Pulse: 61 (05/04 745) Respirations: 14 PER MINUTE (05/04 745) SpO2: 99 % (05/04 745) O2 Delivery: None (Room Air) (05/04 745) SpO2 Pulse: 66 (05/03 1615) Patient History Allergies No Known Allergies Medications Scheduled Meds: acyclovir (ZOVIRAX) tablet 800 mg 800 mg Oral BID brimonidine (ALPHAGAN P) 0.15 % ophthalmic solution 1 Drop 1 Drop Left Eye TID carboxymethylcellulose (REFRESH PLUS) 0.5 % ophthalmic solution 1 Drop 1 Drop Both Eyes QID clonazePAM (KLONOPIN) tablet 0.25 mg 0.25 mg Oral QHS cyclopentolate (CYCLODRYL) 1 % ophthalmic solution 1 Drop 1 Drop Left Eye TID enoxaparin (LOVENOX) syringe 40 mg 40 mg Subcutaneous Q24H* ergocalciferol (VITAMIN D-2) capsule 50,000 Units 50,000 Units Oral Q7 Days insulin aspart (NOVOLOG FLEXPEN) injection PEN 0-14 Units 0-14 Units Subcutaneous ACHS insulin glargine (LANTUS SOLOSTAR) injection PEN 10 Units 10 Units Subcutaneous QHS levothyroxine (SYNTHROID) tablet 50 mcg 50 mcg Oral QDAY 30 min before breakfast melatonin tablet 3 mg 3 mg Oral QHS neomycin/polymyxin/dexamethasone (MAXITROL) ophthalmic suspension 1 Drop 1 Drop Left Eye BID penicillin V potassium (VEETID) tablet 750 mg 750 mg Oral BID [START ON 05/05/2017] pentamidine (NEBUPENT) nebulizer solution 300 mg 300 mg Inhalation Q28 Days polyethylene glycol 3350 (MIRALAX) packet 17 g 17 g Oral QDAY prednisolone acetate (PRED FORTE) 1 % ophthalmic suspension 1 Drop 1 Drop Left Eye QID propranolol (INDERAL) tablet 20 mg 20 mg Oral TID senna/docusate (SENOKOT-S) tablet 1 Tab 1 Tab Oral BID traZODone (DESYREL) tablet 25 mg 25 mg Oral QHS Continuous Infusions: sodium chloride 0.9 % infusion 20 mL/hr at 05/03/17 1301 sodium chloride 0.9 % infusion 75 mL/hr at 05/04/17 0617 PRN and Respiratory Meds:acetaminophen Q4H PRN, alteplase PRN (Mixing Plant Operator from Rx) , amitriptyline/gabapentin/emu oil(#) Q8H PRN, benzonatate TID PRN, fentaNYL citrate PF Q2H PRN, magnesium sulfate 4 g/50 mL PRN, mineral oil/white petrolatum TID PRN, oxyCODONE Q4H PRN, potassium chloride PRN (Mixing Plant Operator from Rx) , prochlorperazine Q6H PRN OR prochlorperazine Q6H PRN Diagnostic Tests Hematology: Lab Results Component Value Date HGB 8.2 05/04/2017 HCT 23.1 05/04/2017 PLTCT 102 05/04/2017 WBC 3.7 05/04/2017 NEUT 47 05/04/2017 ANC 1.70 05/04/2017 LYMPH 18 04/19/2017 ALC 1.40 05/04/2017 BRUCE 15 05/04/2017 AMC 0.60 05/04/2017 EOSA 2 05/04/2017 ABC 0.00 05/04/2017 BASOPHILS 2 04/19/2017 MCV 104.2 05/04/2017 MCH 36.9 05/04/2017 MCHC 35.4 05/04/2017 MPV 6.4 05/04/2017 RDW 19.6 05/04/2017 General Chemistry: Lab Results Component Value Date NA 135 05/04/2017 K 3.8 05/04/2017 CL 108 05/04/2017 CO2 23 05/04/2017 GAP 4 05/04/2017 BUN 16 05/04/2017 CR 0.73 05/04/2017 GLU 77 05/04/2017 CA 9.3 05/04/2017 ALBUMIN 2.6 05/04/2017 LACTIC 0.7 04/19/2017 OBSCA 1.35 04/22/2017 MG 2.2 05/04/2017 TOTBILI 0.6 05/04/2017 PO4 3.9 05/04/2017 Coagulation: Lab Results Component Value Date PTT 28.7 05/03/2017 INR 1.0 05/03/2017 Follow-Up Assessment Patient location during evaluation: floor Anesthetic Complications: Anesthetic complications: The patient did not experience any anesthestic complications. Pain: Management:adequate Level of Consciousness: awake and alert Hydration:acceptable Airway Patency: patent Respiratory Status: spontaneous ventilation and nonlabored ventilation Cardiovascular Status:acceptable and stable Regional/Neuroaxial: * Operative Report (Direct Entry) - Kandice Montelongo MD - 05/03/2017 3:49 PM CDT Formatting of this note may be different from the original. OPERATIVE REPORT Name: Donna Wilde is a 61 y.o. female : 1955 DATE OF OPERATION: 05/03/2017 Surgeon(s) and Role: * Zackery Mendez MD - Resident - Assisting * Kandice Montelongo MD - Primary * Kandice Montelongo MD - Primary Preoperative Diagnosis: Nasal cavity mass [R22.0] Post-op Diagnosis * Nasal cavity mass [R22.0] Procedure(s) (LRB): FUNCTIONAL ENDOSCOPY SINUS SURGERY WITH MAXILLARY ANTROSTOMY (Left) Anesthesia Type: Defer to Anesthesia Findings: Normal nasal anatomy on the left with left-sided maxillary sinus submucosal hematoma Description of Operative Procedure: Prior to the procedure the patient was evaluated in the preoperative area and the risks, benefits and alternatives of the procedure were discussed. An interpreter and translator was used. Informed consent was obtained. The anesthesia team moved the patient to the operating room and the patient was moved to the operating room table. Induction was performed by the anesthesia team. The patient was then prepped and draped in the normal sterile fashion. A timeout was performed prior to the procedure. Afrin-soaked pledgets were inserted into bilateral nares. The 0 Kauffman raymond endoscope was inserted into the left nasal cavity. Normal nasal anatomy was then visualized. Using an elevator, the inferior turbinate was lateralized. The middle turbinate was then medialized to provide visualization of the middle meatus. Using a ball-tipped probe the uncinate was then identified and pulled anteriorly. A 30 Kauffman raymond endoscope was then used to visualize the maxillary ostium. Using a backbiter the uncinate was taken down. The ball-tipped probe was then inserted into the maxillary ostium and the maxillary antrostomy was performed. The left maxillary sinus mass was then visualized. Cultures were taken and the mass was then biopsied. The mass appeared to be a submucosal hematoma. Photos were taken. Once biopsies were taken, our attention was then turned to hemostasis. This was obtained with Afrin and thrombin soaked pledgets. With thorough hemostasis was obtained, the nasal cavity was profusely irrigated and suctioned. The left maxillary sinus was packed with fibrillar to aid in hemostasis. Patient was then turned over to the anesthesia team for reversal of the anesthetic. At the end of the case all counts were correct and there were no complications. Patient was taken to PACU in stable condition. Dr. Montelongo was present for the entirety of the case. Estimated Blood Loss: No blood loss documented. Specimen(s) Removed/Disposition: ID Type Source Tests Collected by Time Destination 1 : Left Maxillary Sinus Tissue Sinus SURGICAL PATHOLOGY Kandice Montelongo MD 05/03/2017 3768 2 : Left Maxillary Sinus Tissue Sinus SURGICAL PATHOLOGY Kandice Montelongo MD 05/03/2017 7880 A : 1. Left Maxillary sinus Tissue Sinus CULTURE-ANAEROBIC, CULTURE-WOUND/ TISSUE/FLUID(AEROBIC ONLY)W/SENSITIVITY, CULTURE-TB (AFB), GRAM STAIN, CULTURE- FUNGAL,OTHER Kandice Montelongo MD 05/03/2017 0276 B : 2. Left Maxillary Sinus Tissue Sinus CULTURE-ANAEROBIC, CULTURE-WOUND/TISSUE /FLUID(AEROBIC ONLY)W/SENSITIVITY, CULTURE-TB (AFB), GRAM STAIN, CULTURE-FUNGAL, OTHER Kandice Montelongo MD 05/03/2017 1501 Complications: None Implants: None Drains: None Disposition: PACU - stable Attestation: Dr. Montelongo was present for the entirety of the case. Shane Briones MD Pager [phone] Hematoma with organized clot * Procedures (Immed Post or Bedside) - Kandice Montelongo MD - 05/03/2017 3:47 PM CDT Formatting of this note may be different from the original. Brief Operative Note Name: Donna Wilde is a 61 y.o. 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 Specimen(s) Removed/Disposition: ID Type Source Tests Collected by Time Destination 1 : Left Maxillary Sinus Tissue Sinus SURGICAL PATHOLOGY Kandice Montelongo MD 05/03/2017 6240 2 : Left Maxillary Sinus Tissue Sinus SURGICAL PATHOLOGY Kandice Montelongo MD 05/03/2017 2963 A : 1. Left Maxillary sinus Tissue Sinus CULTURE-ANAEROBIC, CULTURE-WOUND/ TISSUE/FLUID(AEROBIC ONLY)W/SENSITIVITY, CULTURE-TB (AFB), GRAM STAIN, CULTURE- FUNGAL,OTHER Kandice Montelongo MD 05/03/2017 1453 B : 2. Left Maxillary Sinus Tissue Sinus CULTURE-ANAEROBIC, CULTURE-WOUND/TISSUE /FLUID(AEROBIC ONLY)W/SENSITIVITY, CULTURE-TB (AFB), GRAM STAIN, CULTURE-FUNGAL, OTHER Kandice Montelongo MD 05/03/2017 1507 Complications: None Implants: None Drains: None Disposition: PACU - stable Shane Briones MD Pager [phone] * Case Mgmt DC Plan - Shiloh Murrell - 05/03/2017 2:12 PM CDT Case Management Progress Note NAME:Donna Wilde :1955 AGE: 61 y.o. ADMISSION DATE: 04/30/2017 DAYS ADMITTED: LOS: 3 days Todays Date: 05/03/2017 Plan Anticipate d/c home with family support when medically stable. Interventions ? Support Support: Pt/Family Updates re:POC or DC Plan SW met with pt in room with BMT team during rounds. Diamond Driller present during rounds. Pt reports that she cannot see out of her left eye. Team discussed plan for ENT to biopsy sinuses today. Pt/spouse asking appropriate questions. SW to continue to follow for d/c planning. ? Info or Referral ? Discharge Planning ? Medication Needs ? Financial ? Legal ? Other Disposition ? Discharge Preparation When ready for discharge, who will be responsible for transporting?: Back to [address] ? Expected Discharge ? Discharge Disposition ? Next Level Care * Procedures (Immed Post or Bedside) - Seth Loza MD - 05/03/2017 8: 26 AM CDT Immediate Post Procedure Note Date: 05/03/2017 Attending Physician: Dr. Esposito Performing Provider: Seth Loza MD Consent: Consent obtained from patient. Time out performed: Consent obtained, correct patient verified, correct procedure verified, correct site verified, patient marked as necessary. Pre/Post Procedure Diagnosis: Concern for leukemia vs infection Indications: Same as above Anesthesia: Local 5 mL 2% lidocaine without epinephrine Procedure(s): Lumbar puncture Findings: Clear CSF fluid Estimated Blood Loss: None/Negligible Specimen(s) Removed/Disposition: Yes, sent to pathology Complications: None Patient Tolerated Procedure: Well Post-Procedure Condition: stable Seth Loza MD Pager [phone] * Care Plan - Aaliyah Yang RN - 05/03/2017 3:00 AM CDT Problem: Discharge Planning Goal: Participation in plan of care Outcome: Goal Ongoing Patient was involved in POC and DC planning. Patient encouraged to ask questions. * Care Plan - Julianna Giang RN - 05/01/2017 1:32 AM CDT Problem: Discharge Planning Goal: Knowledge regarding plan of care Outcome: Goal Ongoing Discussed plan of care with pt and pt's . Problem: Falls, High Risk of Goal: Absence of falls-Adult Patient Outcome: Goal Ongoing Fall risk bundle in place. Problem: Pain Goal: Management of pain Outcome: Goal Ongoing Pt denies pain at this time. in this encounter Plan of Treatment Date Type Specialty Care Team Description 06/28/2017 Procedure Pass Infectious Diseases Name Priority Associated Diagnoses Order Schedule CYTOLOGY FLUIDS Routine ONCE for 1 Occurrences starting 05/03/2017 SURGICAL PATHOLOGY Routine Nasal cavity mass ONCE for 1 Occurrences starting 05/03/2017 as of this encounter Procedures Procedure Name Priority Date/Time Associated Diagnosis Comments TELEMETRY STRIPS-SCAN 05/13/2017 Results for this 2:52 PM CDT procedure are in the results section. CONSULT IV THERAPY TEAM Routine 05/05/2017 3:53 PM CDT CONSULT IV THERAPY TEAM Routine 05/04/2017 2:52 PM CDT FUNCTIONAL ENDOSCOPY 05/03/2017 Nasal cavity mass SINUS SURGERY WITH 12:20 PM CDT MAXILLARY ANTROSTOMY CONSULT IV THERAPY TEAM Routine 05/01/2017 10:25 PM CDT in this encounter Results * TELEMETRY STRIPS-SCAN (05/13/2017 2:52 PM) Narrative Ordered by an unspecified provider. * PATHOLOGY INTEROPERATIVE REPORT SCAN (05/13/2017 10:17 AM) Narrative Ordered by an unspecified provider. * C DIFFICILE BY PCR (05/06/2017 12:32 PM) Component Value Ref Range Battery Name C DIFFICILE PCR Specimen Description FECES Special Requests NONE C. Difficile Toxin B PCR NEGATIVE-wait 7 days to repeat test Report Status FINAL 05/06/2017 Specimen Performing Laboratory Feces MAIN LAB [address] [place] [address] * POC GLUCOSE (05/06/2017 12:08 PM) Component Value Ref Range Glucose, POC 151 (H) 70 - 100 MG/DL Specimen Performing Laboratory MAIN LAB [address] [place] [address] * POC GLUCOSE (05/06/2017 8:35 AM) Component Value Ref Range Glucose, POC 125 (H) 70 - 100 MG/DL Specimen Performing Laboratory MAIN LAB [address] [place] [address] * BASIC METABOLIC PANEL (05/06/2017 5:17 AM) Component Value Ref Range Sodium 133 (L) [...] Specimen Performing Laboratory Blood MAIN LAB [address] [place] [address] * CBC AND DIFF (05/06/2017 5:17 AM) Component Value Ref Range White Blood Cells 3.0 (L) 4.5 - 11.0 K/UL RBC 2.20 (L) 4.0 - 5.0 M/UL Hemoglobin 8.2 (L) 12.0 - 15.0 GM/DL Hematocrit 23.2 (L) 36 - 45 % MCV 105.2 (H) 80 - 100 FL MCH 37.2 (H) 26 - 34 PG MCHC 35.4 32.0 - 36.0 G/DL RDW 19.8 (H) 11 - 15 % Platelet Count 86 (L) 150 - 400 K/UL MPV 6.5 (L) 7 - 11 FL Neutrophils 41 41 - 77 % Lymphocytes 43 24 - 44 % Monocytes 13 (H) 4 - 12 % Eosinophils 3 0 - 5 % Basophils 0 0 - 2 % Absolute Neutrophil Count 1.20 (L) 1.8 - 7.0 K/UL Absolute Lymph Count 1.30 1.0 - 4.8 K/UL Absolute Monocyte Count 0.40 0 - 0.80 K/UL Absolute Eosinophil Count 0.10 0 - 0.45 K/UL Absolute Basophil Count 0.00 0 - 0.20 K/UL Specimen Performing Laboratory Blood [facility] [address] [place] [address] * MAGNESIUM (05/06/2017 5:17 AM) Component Value Ref Range Magnesium 2.1 1.6 - 2.6 mg/dL Specimen Performing Laboratory Blood [facility] [address] [place] [address] * POC GLUCOSE (05/05/2017 9:23 PM) Component Value Ref Range Glucose, POC 149 (H) 70 - 100 MG/DL Specimen Performing Laboratory [facility] [address] [place], [place] [id number] * POC GLUCOSE (05/05/2017 5:28 PM) Component Value Ref Range Glucose, POC 128 (H) 70 - 100 MG/DL Specimen Performing Laboratory [facility] [address] [place], [place] [id number] * POC GLUCOSE (05/05/2017 8:03 AM) Component Value Ref Range Glucose, POC 151 (H) 70 - 100 MG/DL Specimen Performing Laboratory [facility] [address] [place] [address] * BASIC METABOLIC PANEL (05/05/2017 4:31 AM) Component Value Ref Range Sodium 136 (L) 137 - 147 MMOL/L Potassium 4.0 3.5 - 5.1 MMOL/L Chloride 109 98 - 110 MMOL/L CO2 23 21 - 30 MMOL/L Anion Gap 4 3 - 12 Glucose 148 (H) 70 - 100 MG/DL Blood Urea Nitrogen 14 7 - 25 MG/DL Creatinine 0.85 0.4 - 1.00 MG/DL Calcium 9.4 8.5 - 10.6 MG/DL eGFR Non >60 >60 mL/min Comment: The eGFR is [...] questions. Specimen Performing Laboratory Blood MAIN LAB [address] [place] [address] * CBC AND DIFF (05/05/2017 4:31 AM) Component Value Ref Range White Blood Cells 3.8 (L) 4.5 - 11.0 K/UL RBC 2.17 (L) 4.0 - 5.0 M/UL Hemoglobin 8.1 (L) 12.0 - 15.0 GM/DL Hematocrit 22.7 (L) 36 - 45 % MCV 104.5 (H) 80 - 100 FL MCH 37.3 (H) 26 - 34 PG MCHC 35.6 32.0 - 36.0 G/DL RDW 19.9 (H) 11 - 15 % Platelet Count 94 (L) 150 - 400 K/UL MPV 6.4 (L) 7 - 11 FL Neutrophils 43 41 - 77 % Lymphocytes 42 24 - 44 % Monocytes 13 (H) 4 - 12 % Eosinophils 2 0 - 5 % Basophils 0 0 - 2 % Absolute Neutrophil Count 1.60 (L) 1.8 - 7.0 K/UL Absolute Lymph Count 1.60 1.0 - 4.8 K/UL Absolute Monocyte Count 0.50 0 - 0.80 K/UL Absolute Eosinophil Count 0.10 0 - 0.45 K/UL Absolute Basophil Count 0.00 0 - 0.20 K/UL Specimen Performing Laboratory Blood MAIN LAB [address] [place] [address] * MAGNESIUM (05/05/2017 4:31 AM) Component Value Ref Range Magnesium 1.5 (L) 1.6 - 2.6 mg/dL Specimen Performing Laboratory Blood MAIN LAB [address] [place] [address] * POC GLUCOSE (05/04/2017 9:26 PM) Component Value Ref Range Glucose, POC 150 (H) 70 - 100 MG/DL Specimen Performing Laboratory MAIN LAB [address] [place] [address] * POC GLUCOSE (05/04/2017 5:46 PM) Component Value Ref Range Glucose, POC 215 (H) 70 - 100 MG/DL Specimen Performing Laboratory MAIN LAB [address] [place] [address] * POC GLUCOSE (05/04/2017 3:02 PM) Component Value Ref Range Glucose, POC 139 (H) 70 - 100 MG/DL Specimen Performing Laboratory MAIN LAB [address] [place] [address] * PHOSPHORUS (05/04/2017 6:46 AM) Component Value Ref Range Phosphorus 3.9 2.0 - 4.0 MG/DL Specimen Performing Laboratory Blood MAIN LAB [address] [place] [address] * COMPREHENSIVE METABOLIC PANEL (05/04/2017 6:46 AM) Component Value Ref Range Sodium 135 (L) 137 - 147 MMOL/L Potassium 3.8 3.5 - 5.1 MMOL/L Chloride 108 98 - 110 MMOL/L Glucose 77 70 - 100 MG/DL Blood Urea Nitrogen 16 7 - 25 MG/DL Creatinine 0.73 0.4 - 1.00 MG/DL Calcium 9.3 8.5 - 10.6 MG/DL Total Protein 5.2 (L) 6.0 - 8.0 G/DL Total Bilirubin 0.6 0.3 - 1.2 MG/DL Albumin 2.6 (L) 3.5 - 5.0 G/DL Alk Phosphatase 180 (H) 25 - 110 U/L AST (SGOT) 30 7 - 40 U/L CO2 23 21 - 30 MMOL/L ALT (SGPT) 13 7 - 56 U/L Anion Gap 4 3 - 12 eGFR Non >60 >60 mL/min Comment: The eGFR is [...] questions. Specimen Performing Laboratory Blood MAIN LAB [address] [place] [address] * CBC AND DIFF (05/04/2017 6:46 AM) Component Value Ref Range White Blood Cells 3.7 (L) 4.5 - 11.0 K/UL RBC 2.21 (L) 4.0 - 5.0 M/UL Hemoglobin 8.2 (L) 12.0 - 15.0 GM/DL Hematocrit 23.1 (L) 36 - 45 % MCV 104.2 (H) 80 - 100 FL MCH 36.9 (H) 26 - 34 PG MCHC 35.4 32.0 - 36.0 G/DL RDW 19.6 (H) 11 - 15 % Platelet Count 102 (L) 150 - 400 K/UL MPV 6.4 (L) 7 - 11 FL Neutrophils 47 41 - 77 % Lymphocytes 36 24 - 44 % Monocytes 15 (H) 4 - 12 % Eosinophils 2 0 - 5 % Basophils 0 0 - 2 % Absolute Neutrophil Count 1.70 (L) 1.8 - 7.0 K/UL Absolute Lymph Count 1.40 1.0 - 4.8 K/UL Absolute Monocyte Count 0.60 0 - 0.80 K/UL Absolute Eosinophil Count 0.10 0 - 0.45 K/UL Absolute Basophil Count 0.00 0 - 0.20 K/UL Specimen Performing Laboratory Blood [facility] [address] [place] [address] * MAGNESIUM (05/04/2017 6:46 AM) Component Value Ref Range Magnesium 2.2 1.6 - 2.6 mg/dL Specimen Performing Laboratory Blood [facility] [address] [place] [address] * POC GLUCOSE (05/03/2017 9:26 PM) Component Value Ref Range Glucose, POC 277 (H) 70 - 100 MG/DL Specimen Performing Laboratory [facility] [address] [place], [place] [id number] * POC GLUCOSE (05/03/2017 7:01 PM) Component Value Ref Range Glucose, POC 173 (H) 70 - 100 MG/DL Specimen Performing Laboratory [facility] [address] [place], [place] [id number] * POC GLUCOSE (05/03/2017 4:14 PM) Component Value Ref Range Glucose, POC 99 70 - 100 MG/DL Specimen Performing Laboratory [facility] [address] [place] [address] * SURGICAL PATHOLOGY (05/03/2017 3:13 PM) Component Value Ref Range PATHOLOGY REPORT [email or web address] Tricia Jerry MD, PhD, Director of Anatomic Pathology Department of Pathology and Laboratory Medicine [address] [place] [id number] Surgical Pathology Office: [phone] SURGICAL PATHOLOGY REPORT NAME: DONNA MENDOZA SURG PATH #: [id number] MR #: [id number] SPECIMEN CLASS: SR BILLING #: [id number] ALT ID #: LOCATION: DISCHARGED DATE OF PROCEDURE: 05/03/2017 AGE: 61 SEX: F DATE RECEIVED: 05/03/2017 : 1955 TIME RECEIVED: 15:13 PHYSICIAN: KANDICE MONTELONGO MD DATE OF REPORT: 05/07/2017 COPY TO: DATE OF PRINTIN05/11/2017 Procedures/Addenda Addendum Date Ordered: 05/11/2017 Status: Signed Out Date Complete: 05/11/2017 By: Sophia Yip MD Date Reported: 05/11/2017 Addendum Diagnosis The diagnosis remains unchanged. Addendum Comment This addendum is submitted to discuss further evaluation of this case. In situ hybridization stain for EBV is negative (block B1). The slides were reviewed by Dr. Briseyda Sandra, neuropathologist, who concurs with the original diagnosis. The findings are compatible with the presence of a reactive process with acute and chronic inflammation, with the spindle cell proliferation most compatible with myofibroblastic proliferation. Continued clinical correlation is recommended. ################################################## ###################### Final Diagnosis: A. Respiratory mucosa, "left maxillary sinus", excision: Acute and chronic inflammation with focal spindle cell proliferation. B. Respiratory mucosa and bone, "left maxillary sinus", excision: Acute and chronic inflammation with focal spindle cell proliferation. No fungal organisms observed with GMS silver stain. Comment: The tissue shows mixed acute and chronic inflammation as well as focal proliferation of bland-appearing spindle cells, which are favored to represent myofibroblasts. Immunostains show these cells are positive for SMA, and negative for panck, CD31, CD34, S100, desmin and alk, and show a low proliferation rate with Ki67 around 1%. GMS stain is negative (block B1). Additional evaluation of the slides is in process, and an addendum report will be submitted. Pursuant to the [employer] Program at the [facility] Pathology Department, selected slides from this case have been concurrently reviewed by the following pathologist: Dr. Kidd, who agrees with the final diagnosis. IHC: Block A2 and B1: alk, ki67, desmin, CD34, CD31, panck, S100, SMA Attestation: By this signature, I attest that I have personally formulated the final interpretation expressed in this report and that the above diagnosis is based upon my examination of the slides and/or other material indicated in this report. +++ +++ Steve Agee MD Resident [facility]/05/03/2017 ################################################## ###################### Material Received: A: left maxillary sinus B: left maxillary sinus History: 61-year-old female with a clinical history of nasal cavity mass. Gross Description: A. Received fresh labeled with the patient's name and "left maxillary sinus" is a 1.2 x 1.0 x 0.3 cm aggregate of red-butler soft tissue fragments. The specimen was submitted entirely in cassettes A1FS and A2FS for frozen and permanent sectioning. (emr) B. Received in formalin with the patient's name and "left maxillary sinus" is a 2.0 x 1.5 x 0.3 cm aggregate of butler-maroon soft tissue fragments. The specimen is submitted entirely in cassette B1. ([facility]/05/03/2017 Intraoperative Consultation: [id number], respiratory mucosa, "left maxillary sinus", biopsy: Organized hematoma negative for malignancy, no fungus on frozen, fungal stains on permanent will be performed. Natasha Lisa MD If immunohistochemical stains and/or in situ hybridization are cited in this report, the performance characteristics were determined by the Department of Pathology and Laboratory Medicine of the [facility] ([employer]) in compliance with CLIA'88 regulations. Some of these tests rely on the use of "analyte specific reagents" and are subject to specific labeling requirements by the FDA. Known positive and negative control tissues demonstrate appropriate staining. Results should be interpreted with caution given the likelihood of false negativity on decalcified specimens. This testing was developed by the Department of Pathology and Laboratory Medicine of the [facility]. It has not been cleared or approved by the FDA. The FDA has determined that such clearance or approval is not necessary. Specimen Performing Laboratory LAB RESULTS * CULTURE-TB (AFB) (05/03/2017 3:08 PM) Component Value Ref Range Battery Name AFB CULTURE Specimen Description TISSUE LEFT MAXILLARY SINUS Special Requests NONE Culture NO GROWTH OF MYCOBACTERIA AT 6 WEEKS Report Status FINAL 06/21/2017 Specimen Performing Laboratory Tissue MAIN LAB [address] [place] [address] * CULTURE-FUNGAL,OTHER (05/03/2017 3:08 PM) Component Value Ref Range Battery Name FUNGUS CULTURE Specimen Description TISSUE LEFT MAXILLARY SINUS Special Requests NONE Culture NO GROWTH OF FUNGUS AT 4 WEEKS Report Status FINAL 06/07/2017 Specimen Performing Laboratory Tissue - Sinus MAIN LAB [address] [place] [address] * GRAM STAIN (05/03/2017 3:08 PM) Component Value Ref Range Battery Name GRAM STAIN Specimen Description TISSUE LEFT MAXILLARY SINUS Special Requests NONE Gram Stain NO NEUTROPHILS SEEN FEW COLUMNAR EPITHELIAL CELLS NO ORGANISMS SEEN Report Status FINAL 05/03/2017 Specimen Performing Laboratory Tissue - Sinus MAIN LAB [address] [place] [address] * CULTURE-WOUND/TISSUE/FLUID(AEROBIC ONLY)W/SENSITIVITY (05/03/2017 3:08 PM) Component Value Ref Range Battery Name ROUTINE CULTURE Specimen Description TISSUE LEFT MAXILLARY SINUS Special Requests NONE Direct Gram Stain NO NEUTROPHILS SEEN FEW COLUMNAR EPITHELIAL CELLS NO ORGANISMS SEEN Culture CO2 DEPENDENT STREPTOCOCCUS isolated from broth only STAPHYLOCOCCUS, COAGULASE NEGATIVE isolated from broth only Report Status FINAL 05/08/2017 Specimen Performing Laboratory Tissue - Sinus MAIN LAB [address] [place] [address] * CULTURE-ANAEROBIC (05/03/2017 3:08 PM) Component Value Ref Range Battery Name ANAEROBE CULTURE Specimen Description TISSUE LEFT MAXILLARY SINUS Special Requests NONE Culture NO ANAEROBES ISOLATED Report Status FINAL 05/08/2017 Specimen Performing Laboratory Tissue - Sinus MAIN LAB [address] [place] [address] * CULTURE-FUNGAL,OTHER (05/03/2017 2:53 PM) Component Value Ref Range Battery Name FUNGUS CULTURE Specimen Description FLOCKED SWAB LEFT MAXILLARY SINUS Special Requests NONE Culture NO GROWTH OF FUNGUS AT 4 WEEKS Report Status FINAL 06/07/2017 Specimen Performing Laboratory Tissue - Sinus MAIN LAB [address] [place] [address] * GRAM STAIN (05/03/2017 2:53 PM) Component Value Ref Range Battery Name GRAM STAIN Specimen Description FLOCKED SWAB LEFT MAXILLARY SINUS Special Requests NONE Gram Stain NO NEUTROPHILS SEEN NO ORGANISMS SEEN Report Status FINAL 05/03/2017 Specimen Performing Laboratory Tissue - Sinus MAIN LAB [address] [place] [address] * CULTURE-WOUND/TISSUE/FLUID(AEROBIC ONLY)W/SENSITIVITY (05/03/2017 2:53 PM) Component Value Ref Range Battery Name ROUTINE CULTURE Specimen Description FLOCKED SWAB LEFT MAXILLARY SINUS Special Requests NONE Direct Gram Stain NO NEUTROPHILS SEEN NO ORGANISMS SEEN Culture 9 colonies STAPHYLOCOCCUS, COAGULASE NEGATIVE Report Status FINAL 05/08/2017 Specimen Performing Laboratory Tissue - Sinus MAIN LAB [address] [place] [address] * CULTURE-ANAEROBIC (05/03/2017 2:53 PM) Component Value Ref Range Battery Name ANAEROBE CULTURE Specimen Description FLOCKED SWAB LEFT MAXILLARY SINUS Special Requests NONE Culture NO ANAEROBES ISOLATED Report Status FINAL 05/08/2017 Specimen Performing Laboratory Tissue - Sinus MAIN LAB [address] [place] [address] * POC GLUCOSE (05/03/2017 12:38 PM) Component Value Ref Range Glucose, POC 79 70 - 100 MG/DL Specimen Performing Laboratory MAIN LAB [address] [place] [address] * TYPE & CROSSMATCH (05/03/2017 11:55 AM) Component Value Ref Range Units Ordered 2 Crossmatch Expires 05/06/2017 Record Check FOUND ABO/RH(D) O POS Antibody Screen NEG Patient has a history of a clinically significant antibody. Unit Number [id number] Blood Component Type RBC,ADSOL,LEUKO REDUCED,IRRADIATED,1ST CONT. Unit Division 0 Status OF Unit REL FROM ALLOC Transfusion Status OK TO TRANSFUSE Crossmatch Result COMPATIBLE, GEL Antigen Type (Units) Jk(a) antigen NEG, Unit Number [id number] Blood Component Type RBC,ADSOL,LEUKO REDUCED,IRRADIATED Unit Division 0 Status OF Unit REL FROM ALLOC Transfusion Status OK TO TRANSFUSE Crossmatch Result COMPATIBLE, GEL Antigen Type (Units) Jk(a) antigen NEG, Unit Number [id number] Blood Component Type RBC,ADSOL,LEUKO REDUCED,IRRADIATED Unit Division 0 Status OF Unit REL FROM ALLOC Transfusion Status DO NOT ISSUE FOR TRANSFUSION Crossmatch Result NOT DONE Antigen Type (Units) Jk(a) antigen POS, Unit Number [id number] Blood Component Type RBC,ADSOL,LEUKO REDUCED,IRRADIATED Unit Division 0 Status OF Unit REL FROM ALLOC Transfusion Status DO NOT ISSUE FOR TRANSFUSION Crossmatch Result NOT DONE Antigen Type (Units) Jk(a) antigen POS, Unit Number [id number] Blood Component Type RBC,ADSOL,LEUKO REDUCED,IRRADIATED Unit Division 0 Status OF Unit REL FROM ALLOC Transfusion Status DO NOT ISSUE FOR TRANSFUSION Crossmatch Result NOT DONE Antigen Type (Units) Jk(a) antigen POS, Unit Number [id number] Blood Component Type RBC,ADSOL,LEUKO REDUCED,IRRADIATED Unit Division 0 Status OF Unit REL FROM ALLOC Transfusion Status DO NOT ISSUE FOR TRANSFUSION Crossmatch Result NOT DONE Antigen Type (Units) Jk(a) antigen POS, Unit Number [id number] Blood Component Type RBC,ADSOL,LEUKO REDUCED,IRRADIATED Unit Division 0 Status OF Unit REL FROM ALLOC Transfusion Status DO NOT ISSUE FOR TRANSFUSION Crossmatch Result NOT DONE Antigen Type (Units) Jk(a) antigen POS, Unit Number [id number] Blood Component Type RBC,ADSOL,LEUKO REDUCED,IRRADIATED Unit Division 0 Status OF Unit REL FROM ALLOC Transfusion Status DO NOT ISSUE FOR TRANSFUSION Crossmatch Result NOT DONE Antigen Type (Units) Jk(a) antigen POS, Specimen Performing Laboratory Blood MAIN LAB [address] [place] [address] * POC GLUCOSE (05/03/2017 9:41 AM) Component Value Ref Range Glucose, POC 79 70 - 100 MG/DL Specimen Performing Laboratory MAIN LAB [address] [place] [address] * PROTIME INR (PT) (05/03/2017 9:24 AM) Component Value Ref Range INR 1.0 0.8 - 1.2 Specimen Performing Laboratory Blood [facility] MAIN LAB [address] [place] [address] * PTT (APTT) (05/03/2017 9:24 AM) Component Value Ref Range APTT 28.7 24.0 - 40.0 SEC Specimen Performing Laboratory Blood [facility] MAIN LAB [address] [place] [address] * IR LUMBAR PUNCTURE (05/03/2017 8:37 AM) Specimen Performing Laboratory [facility] RAD RESULTS Impressions 1. Fluoroscopic guided lumbar puncture, as described. 2. 12 ml of CSF collected. I, Dairel Esposito M.D, the attending radiologist, was present for [...] expressed in this report Finalized by DARIEL ESPOSITO on 05/03/2017 9:57 AM. Dictated by Seth Loza MD on 05/03/2017 9:42 AM. Narrative Fluoroscopic guided lumbar puncture Clinical History: Right cerebellar lesion, concern for leukemia versus infection PRINTING PRESS MACHINIST: Janny Stubbs MD Total fluoroscopy dose: 4 [...] cerebellar lesion, concern for leukemia versus infection PRINTING PRESS MACHINIST: Jericho Loza M.D. and DARIEL ESPOSITO MD Total fluoroscopy dose: 4 mGy. Medications: [...] 12 ml of CSF collected. I, Dariel Esposito M.D, the attending radiologist, was present for [...] expressed in this report Finalized by DARIEL ESPOSITO on 05/03/2017 9:57 AM. Dictated by Seth Loza MD on 05/03/2017 9:42 AM. * FLOW CYTOMETRY (05/03/2017 8:29 AM) Component Value Ref Range PATHOLOGY REPORT [facility] [email or web address] Sophia Yip MD, Director of Clinical Laboratory Karthikeyan Jordan MD, Director of Flow Cytometry Laboratory Department of Pathology and Laboratory Medicine [address] [place], [place] [address] Surgical Pathology Office: [phone] FLOW CYTOMETRY REPORT NAME: DONNA MENDOZA SURG PATH #: [id number] MR #: [id number] SPECIMEN CLASS: LC BILLING #: [id number] ALT ID #: LOCATION: [id number] DATE OF PROCEDURE: 05/03/2017 AGE: 61 SEX: F DATE RECEIVED: 05/03/2017 : 1955 TIME RECEIVED: 09:42 PHYSICIAN: VALE ADDISON MD DATE OF REPORT: 05/04/2017 COPY TO: DATE OF PRINTIN05/04/2017 Material Received: A: Cerebrospinal fluid Tube 4 History: 61 year old female with a history of acute myeloid leukemia ################################################## ###################### Final Diagnosis: Cerebrospinal fluid, flow cytometry: Negative immunophenotypic study Interpretation: Myeloid blasts are absent. There is no immunophenotypic evidence of acute myeloid leukemia. Attestation: By this signature, I attest that I have personally formulated the final interpretation expressed in this report and that the above diagnosis is based upon my examination of the slides and/or other material indicated in this report. +++Electronically Signed Out By+++ [facility]/05/03/2017 Interpreted by: MD Caden Atkins MD Resident 05/04/2017 ################################################## ###################### Lab Data: Flow Cytometry - Acute Myeloid Leukemia Screen Myeloid Associated Markers (% Positive Cells): KF34x=3; CD13=13; CD33=25; XC064=7 Miscellaneous Markers (% Positive Cells): CD34=0; IZ32=383; HLA-Dr=0 Cell Viability (%): QNS Number of Cells Analyzed: 1564 Total Number of Markers: 7 Summary of Marker Combinations: 34/117/33/13/11b/45/38/Dr This test was developed and its performance characteristics determined by the [facility] Flow Cytometry Laboratory. It has not been cleared or approved by the U.S. Food and Drug Administration (FDA). The FDA has determined that such clearance or approval is not necessary. Specimen Performing Laboratory [facility] LAB RESULTS * GRAM STAIN (05/03/2017 8:29 AM) Component Value Ref Range Battery Name GRAM STAIN Specimen Description CSF Special Requests NONE Gram Stain RARE NEUTROPHILS MODERATE RBC'S NO ORGANISMS SEEN Report Status FINAL 05/03/2017 Specimen Performing Laboratory Cerebrospinal Fluid MAIN LAB [address] [place] [address] * CULTURE-TB (AFB) (05/03/2017 8:29 AM) Component Value Ref Range Battery Name AFB CULTURE Specimen Description CSF Special Requests NONE Culture NO GROWTH OF MYCOBACTERIA AT 6 WEEKS Report Status FINAL 06/21/2017 Specimen Performing Laboratory Cerebrospinal Fluid MAIN LAB [address] [place] [address] * CSF TUBE VOLUMES (05/03/2017 8:29 AM) Component Value Ref Range CSF Tube 1 3.0 mL CSF Tube 2 3.0 mL CSF Tube 3 3.0 mL CSF Tube 4 3.0 mL Specimen Performing Laboratory [facility] LAB RESULTS * LEUKEMIA/LYMPHOMA PANEL FLUID/TISSUE (05/03/2017 8:29 AM) Component Value Ref Range Leuk/Lymph Interpretation SEE PATHOLOGY REPORT Specimen/LLM CSF Specimen Performing Laboratory Cerebrospinal fluid - [facility] LAB Cerebrospinal Fluid [address] [place] [address] * CULTURE-FUNGAL,CSF (05/03/2017 8:29 AM) Component Value Ref Range Battery Name CSF FUNGUS CULTURE Specimen Description CSF Special Requests NONE Culture NO GROWTH OF FUNGUS AT 4 WEEKS Report Status FINAL 06/07/2017 Specimen Performing Laboratory Cerebrospinal fluid - MAIN LAB Cerebrospinal Fluid [address] [place] [address] * CULTURE-CSF W/SENSITIVITY (05/03/2017 8:29 AM) Component Value Ref Range Battery Name CSF CULTURE Specimen Description CSF Special Requests NONE Direct Gram Stain RARE NEUTROPHILS MODERATE RBC'S NO ORGANISMS SEEN Culture NO GROWTH 3 DAYS Report Status FINAL 05/06/2017 Specimen Performing Laboratory Cerebrospinal fluid - MAIN LAB Cerebrospinal Fluid [address] [place], [place] [id number] * CELL COUNT W/DIFF-CSF (05/03/2017 8:29 AM) [...] fluid - MAIN LAB Cerebrospinal Fluid [address] [place] [address] * TOTAL PROTEIN-CSF (05/03/2017 8:29 AM) Component Value Ref Range Total Protein,CSF 52 (H) 15 - 45 MG/DL Specimen Performing Laboratory Cerebrospinal fluid - MAIN LAB Cerebrospinal Fluid [address] [place] [address] * GLUCOSE-CSF (05/03/2017 8:29 AM) Component Value Ref Range Glucose,CSF 58 40 - 75 MG/DL Xanthrochromia,CSF SMALL BLOOD PRESENT Specimen Performing Laboratory Cerebrospinal fluid - MAIN LAB Cerebrospinal Fluid [address] [place] [address] * HISTOPLASMA-CSF (05/03/2017 8:29 AM) Component Value Ref Range Histoplasma Mycelial Negative TITER (CSF) Comment: Reference range: Negative Unit: not reported [facility], [address] [place] [address] Histoplasma Yeast (CSF) Negative Reference range: Negative [facility], [address] [place] [address] Histoplasma Negative Immunodiffusion (CSF) Reference range: Negative A negative complement fixation and immunodiffusion (CF/ID) result does not exclude the diagnosis of histoplasmosis. [facility], [address] [place] [address] Specimen Performing Laboratory Cerebrospinal fluid - REFERENCE LAB Cerebrospinal Fluid * NON-ADVERTISING CONSULTANT CYTOLOGY (BODY FLUIDS/TISSUE) (05/03/2017 8:27 AM) Component Value Ref Range Cytology [facility] [email or web address] Tricia Jerry MD, Director Cytopathology Department of Pathology and Laboratory Medicine [address] [place] [address] Surgical Pathology Office: [phone] CYTOLOGY REPORT NAME: DONNA MENDOZA CYTOLOGY #: [id number] MR #: [id number] ALT ID #: OSMIN #: [id number] LOCATION: DATE OF PROCEDURE: 05/03/2017 AGE: 61 SEX: F DATE RECEIVED: 05/04/2017 : 1955 TIME RECEIVED: 08:27 PHYSICIAN: VIPIN CASTELLANO DATE OF REPORT: 05/06/2017 COPY TO: EDWARD MCALLISTER DATE OF PRINTIN05/06/2017 Material Received: A: Cerebrospinal Fluid History: 61 year old female with 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 Gross Description: (1tp) 1.75 mL clear light yellow fluid. ################################################## ###################### Final Diagnosis: A. Cerebrospinal Fluid: Mild lymphocytosis. Negative for malignant cells. Please also see concurrent flow cytometry report ([id number]), which demonstrates an negative immunophenotypic study. Attestation: By this signature, I attest that I have personally formulated the final interpretation expressed in this report and that the above diagnosis is based upon my examination of the slides and/or other material indicated in this report. +++Electronically Signed Out By+++ pl/05/05/2017 Interpreted by: PHILIPPE Weinstein MD, PhD Fellow Specimen Performing Laboratory [facility] LAB RESULTS * BASIC METABOLIC PANEL (05/03/2017 5:13 AM) Component Value Ref Range Sodium 135 (L) 137 - 147 MMOL/L Potassium 4.1 3.5 - 5.1 MMOL/L Chloride 108 98 - 110 MMOL/L CO2 22 21 - 30 MMOL/L Anion Gap 5 3 - 12 Glucose 81 70 - 100 MG/DL Blood Urea Nitrogen 14 7 - 25 MG/DL Creatinine 0.63 0.4 - 1.00 MG/DL Calcium 8.9 8.5 - 10.6 MG/DL eGFR Non >60 >60 mL/min Comment: The eGFR is [...] Specimen Performing Laboratory Blood MAIN LAB [address] [place] [address] * CBC AND DIFF (05/03/2017 5:13 AM) Component Value Ref Range White Blood Cells 3.4 (L) 4.5 - 11.0 K/UL RBC 2.10 (L) 4.0 - 5.0 M/UL Hemoglobin 7.9 (L) 12.0 - 15.0 GM/DL Hematocrit 22.2 (L) 36 - 45 % MCV 105.9 (H) 80 - 100 FL MCH 37.5 (H) 26 - 34 PG MCHC 35.4 32.0 - 36.0 G/DL RDW 19.5 (H) 11 - 15 % Platelet Count 92 (L) 150 - 400 K/UL MPV 7.5 7 - 11 FL Neutrophils 46 41 - 77 % Lymphocytes 36 24 - 44 % Monocytes 14 (H) 4 - 12 % Eosinophils 3 0 - 5 % Basophils 1 0 - 2 % Absolute Neutrophil Count 1.60 (L) 1.8 - 7.0 K/UL Absolute Lymph Count 1.20 1.0 - 4.8 K/UL Absolute Monocyte Count 0.50 0 - 0.80 K/UL Absolute Eosinophil Count 0.10 0 - 0.45 K/UL Absolute Basophil Count 0.00 0 - 0.20 K/UL Specimen Performing Laboratory Blood MAIN LAB [address] [place] [address] * MAGNESIUM (05/03/2017 5:13 AM) Component Value Ref Range Magnesium 1.6 1.6 - 2.6 mg/dL Specimen Performing Laboratory Blood MAIN LAB [address] [place] [address] * CULTURE-FUNGAL,BLOOD W/SENSITIVITY (05/03/2017 5:10 AM) Component Value Ref Range Battery Name FUNGUS BLOOD CULTURE Specimen Description BLOOD LEFT ANTECUBITAL Special Requests NONE Culture NO GROWTH OF FUNGUS AT 4 WEEKS Report Status FINAL 06/07/2017 Specimen Performing Laboratory Blood MAIN LAB [address] [place] [address] * T SPOT TB (05/03/2017 5:10 AM) Component Value Ref Range T Spot TB Negative The test result is Negative because the spot count in (Panel A minus Nil Control) and (Panel B minus Nil Control) is less than or equal to 4. This includes values less than zero.[id number]: Diagnosing or excluding tuberculosis disease, and assessing [...] Specimen Performing Laboratory Blood REFERENCE LAB * POC GLUCOSE (05/02/2017 6:45 PM) Component Value Ref Range Glucose, POC 167 (H) 70 - 100 MG/DL Specimen Performing Laboratory MAIN LAB [address] [place] [address] * CULTURE-BLOOD W/SENSITIVITY (05/02/2017 5:00 PM) Component Value Ref Range Battery Name BLOOD CULTURE Specimen Description BLOOD LEFT FA Special Requests NONE Culture NO GROWTH 5 DAYS Report Status FINAL 05/08/2017 Specimen Performing Laboratory Blood MAIN LAB [address] [place] [address] * POC GLUCOSE (05/02/2017 9:34 AM) Component Value Ref Range Glucose, POC 107 (H) 70 - 100 MG/DL Specimen Performing Laboratory MAIN LAB [address] [place] [address] * BASIC METABOLIC PANEL (05/02/2017 5:51 AM) Component Value Ref Range Sodium 135 (L) 137 - 147 MMOL/L Potassium 4.7 3.5 - 5.1 MMOL/L Chloride 108 98 - 110 MMOL/L CO2 22 21 - 30 MMOL/L Anion Gap 5 3 - 12 Glucose 116 (H) 70 - 100 MG/DL Blood Urea Nitrogen 16 7 - 25 MG/DL Creatinine 0.83 0.4 - 1.00 MG/DL Calcium 9.1 8.5 - 10.6 MG/DL eGFR Non >60 >60 mL/min Comment: The eGFR is [...] Pharmacist for questions. Specimen Performing Laboratory Blood [facility] MAIN LAB [address] [place] [address] * CBC AND DIFF (05/02/2017 5:51 AM) Component Value Ref Range White Blood Cells 3.7 (L) 4.5 - 11.0 K/UL RBC 2.19 (L) 4.0 - 5.0 M/UL Hemoglobin 7.8 (L) 12.0 - 15.0 GM/DL Hematocrit 22.8 (L) 36 - 45 % MCV 104.2 (H) 80 - 100 FL MCH 35.5 (H) 26 - 34 PG MCHC 34.0 32.0 - 36.0 G/DL RDW 19.9 (H) 11 - 15 % Platelet Count 85 (L) 150 - 400 K/UL MPV 7.1 7 - 11 FL Neutrophils 54 41 - 77 % Lymphocytes 28 24 - 44 % Monocytes 15 (H) 4 - 12 % Eosinophils 3 0 - 5 % Basophils 0 0 - 2 % Absolute Neutrophil Count 2.00 1.8 - 7.0 K/UL Absolute Lymph Count 1.00 1.0 - 4.8 K/UL Absolute Monocyte Count 0.50 0 - 0.80 K/UL Absolute Eosinophil Count 0.10 0 - 0.45 K/UL Absolute Basophil Count 0.00 0 - 0.20 K/UL Specimen Performing Laboratory Blood [facility] MAIN LAB [address] [place] [address] * MAGNESIUM (05/02/2017 5:51 AM) Component Value Ref Range Magnesium 2.3 1.6 - 2.6 mg/dL Specimen Performing Laboratory Blood [facility]U MAIN LAB [address] [place] [address] * POC GLUCOSE (05/01/2017 9:37 PM) Component Value Ref Range Glucose, POC 155 (H) 70 - 100 MG/DL Specimen Performing Laboratory [address] [address] * POC GLUCOSE (05/01/2017 6:54 PM) Component Value Ref Range Glucose, POC 152 (H) 70 - 100 MG/DL Specimen Performing Laboratory [address] [address] * POC GLUCOSE (05/01/2017 5:19 PM) Component Value Ref Range Glucose, POC 138 (H) 70 - 100 MG/DL Specimen Performing Laboratory [address] [address] * TOXOPLASMA IGG (05/01/2017 4:12 PM) Component Value Ref Range Toxoplasma IgG POS Specimen Performing Laboratory [address] [address] * CRYPTOCOCCUS ANTIGEN (05/01/2017 4:12 PM) Component Value Ref Range Cryptococcal AG Screen NEG NEG-NEG Specimen Performing Laboratory Blood [address] [address] * HISTOPLASMA AG, SERUM (05/01/2017 4:12 PM) [...] developed and its performance characteristics determined by [facility]. It has not been cleared or approved by the FDA; however, FDA clearance or approval is not currently required for clinical use. The results are not intended to be used as the sole means for clinical diagnosis or patient management decisions. Test Performed by: [facility] [address] [place] [address] [place] [address] Specimen Performing Laboratory Blood REFERENCE LAB * FUNGITELL (05/01/2017 4:12 PM) Component Value Ref Range Fungitell <31 Reference range: <80 Unit: pg/mL Interpretation: The Fungitell assay does not detect certain fungal species such as the genus Cryptococcus (Lidia et al. 1991) which produces very low levels of (1-3)-Bfxx-T-Ywmbih. The assay also does not detect the Zygomycetes such as Absidia, Mucor and Rhizopus (Hilary et al. 1994) which are not known to produce (1-3)-Pvoy-X-Kgjckm. In addition, the yeast phase of Blastomyces dermatitidis produces little (1-3)-Iuhd-T-Hpplxv and may not be detected by the [...] characteristics for these modifications were determined by [facility]. If sample result is greater than 500 pg/mL, physician may order a titer of the sample. Please contact [facility] if you would like to order a retest of this sample to obtain an actual value. Samples are held for 1 week after initial testing date. Testing Performed At: [facility] [address] [place] [address] [place] [address] CLIA ID: [id number] Specimen Performing Laboratory Blood REFERENCE LAB * ASPERGILLUS (GALACTOMANNAN) AG (05/01/2017 4:12 PM) [...] Aspergillus Galactomannan EIA is a product of [employer] and is FDA approved for in vitro diagnostic use. Testing Performed At: [facility] [employer] [place], [place] [id number] CLIA ID: [id number] Specimen Performing Laboratory Blood REFERENCE LAB * CT MAXIFACIAL/SINUS W CONTRAST (05/01/2017 3:05 PM) Specimen Performing Laboratory [facility] RAD RESULTS Impressions 1. Right mastoiditis. 2. [...] Richter M.D. on 05/01/2017 7:44 PM. * CT CHEST W CONTRAST (05/01/2017 [...] M.D. on 05/01/2017 6:51 PM. * CT ABD/PELV W CONTRAST (05/01/2017 3:05 [...] Richter M.D. on 05/01/2017 6:51 PM. * BASIC METABOLIC PANEL (05/01/2017 6:13 AM) Component Value Ref Range Sodium 137 137 - 147 MMOL/L Potassium 3.9 3.5 - 5.1 MMOL/L Chloride 109 98 - 110 MMOL/L CO2 22 21 - 30 MMOL/L Anion Gap 6 3 - 12 Glucose 73 70 - 100 MG/DL Blood Urea Nitrogen 17 7 - 25 MG/DL Creatinine 0.79 0.4 - 1.00 MG/DL Calcium 9.3 8.5 - 10.6 MG/DL eGFR Non >60 >60 mL/min Comment: The eGFR is [...] Pharmacist for questions. Specimen Performing Laboratory Blood [facility] MAIN LAB [address] [place] [address] * CBC AND DIFF (05/01/2017 6:13 AM) Component Value Ref Range White Blood Cells 4.7 4.5 - 11.0 K/UL RBC 2.17 (L) 4.0 - 5.0 M/UL Hemoglobin 7.9 (L) 12.0 - 15.0 GM/DL Hematocrit 22.4 (L) 36 - 45 % MCV 103.3 (H) 80 - 100 FL MCH 36.6 (H) 26 - 34 PG MCHC 35.4 32.0 - 36.0 G/DL RDW 19.1 (H) 11 - 15 % Platelet Count 89 (L) 150 - 400 K/UL MPV 6.6 (L) 7 - 11 FL Neutrophils 54 41 - 77 % Lymphocytes 32 24 - 44 % Monocytes 12 4 - 12 % Eosinophils 2 0 - 5 % Basophils 0 0 - 2 % Absolute Neutrophil Count 2.60 1.8 - 7.0 K/UL Absolute Lymph Count 1.50 1.0 - 4.8 K/UL Absolute Monocyte Count 0.50 0 - 0.80 K/UL Absolute Eosinophil Count 0.10 0 - 0.45 K/UL Absolute Basophil Count 0.00 0 - 0.20 K/UL Specimen Performing Laboratory Blood [facility] MAIN LAB [address] [place] [address] * MAGNESIUM (05/01/2017 6:13 AM) Component Value Ref Range Magnesium 1.7 1.6 - 2.6 mg/dL Specimen Performing Laboratory Blood [facility] MAIN LAB [address] [place] [address] * VRE SCREEN (04/30/2017 9:00 PM) Component Value Ref Range Battery Name VRE SCREEN Specimen Description PERIRECTAL SWAB Special Requests NONE Culture VRE ISOLATED Complete susceptibility testing is not performed on surveillance culture. Positive cultures indicate carrier status and do not by themselves indicate a need for treatment. 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 Subarachnoid hemorrhage following injury, with loss of consciousness, with LOC of 30 min or less, initial encounter Acute arterial ischemic stroke, vertebrobasilar, cerebellar (HCC) Unspecified cerebral artery occlusion with cerebral infarction Subarachnoid hemorrhage (HCC) Subarachnoid hemorrhage White matter lesion of central nervous system Gait disturbance Abnormality of gait Retinal edema right eye Retinal edema Subarachnoid bleed ([facility]) Subarachnoid hemorrhage Lesion of cerebellum Other conditions of brain Closed displaced intertrochanteric fracture of left femur (HCC) Closed fracture of intertrochanteric section of femur 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 Profound impairment, one eye, Impairment level not further specified Panuveitis of left eye Panuveitis Closed intertrochanteric fracture of left femur (HCC) Closed fracture of intertrochanteric section of femur SAH (subarachnoid hemorrhage) (HCC) Subarachnoid hemorrhage Traumatic compression fracture of T11 thoracic vertebra ([facility]) in this encounter Admitting Diagnoses Diagnosis myeloproliferative neoplasms Brain mass Nasal cavity mass Swelling, mass, or lump in head and neck in this encounter Administered Medications Medication Order MAR Action Action Date Dose Rate Site acyclovir (ZOVIRAX) tablet 800 mg Given 05/05/2017 800 mg 800 mg, Oral, TWICE DAILY, First dose on 11:23 CDT Wed04/30/17 at 2100, Until Discontinued Given 05/05/2017 800 mg 21:19 CDT Given 05/06/2017 800 mg 09:47 CDT brimonidine (ALPHAGAN P) 0.15 % Given 05/05/2017 1 drop ophthalmic solution 1 Drop 15:47 CDT 1 Drop, Left Eye, THREE TIMES DAILY, First dose on Wed04/30/17 at 1730, Until Discontinued Given 05/05/2017 1 drop 21:17 CDT Given 05/06/2017 1 drop 09:51 CDT carboxymethylcellulose (REFRESH PLUS) Given 05/05/2017 1 drop 0.5 % ophthalmic solution 1 Drop 21:17 CDT 1 Drop, Both Eyes, FOUR TIMES DAILY, First dose on Wed04/30/17 at 1730, Until Discontinued Given 05/06/2017 1 drop 09:51 CDT Given 05/06/2017 1 drop 12:40 CDT cholecalciferol (VITAMIN D-3) tablet Given 05/01/2017 2,000 Units 2,000 Units 10:15 CDT 2,000 Units, Oral, DAILY, First dose on Wed04/30/17 at 1730, Until Discontinued Given 05/02/2017 2,000 Units 10:52 CDT clonazePAM (KLONOPIN) tablet 0.25 mg Given 05/03/2017 0.25 mg 0.25 mg, Oral, AT BEDTIME DAILY, First 21:23 CDT dose on Wed04/30/17 at 2100, Until Discontinued Given 05/04/2017 0.25 mg 21:20 CDT Given 05/05/2017 0.25 mg 21:18 CDT cyclopentolate (CYCLODRYL) 1 % Given 05/05/2017 1 drop ophthalmic solution 1 Drop 15:47 CDT 1 Drop, Left Eye, THREE TIMES DAILY, First dose on Wed05/02/17 at 2100, Until Discontinued Given 05/05/2017 1 drop 21:17 CDT Given 05/06/2017 1 drop 09:51 CDT enoxaparin (LOVENOX) syringe 40 mg Given 04/30/2017 40 mg Abdominal 40 mg, Subcutaneous, EVERY 24 HOURS, 21:43 CDT Tissue First dose on Wed04/30/17 at 1900, Until Discontinued, For patients undergoing surgery: Consult physician in advance -- enoxaparin is an anticoagulant and may need to be held for 12hr prior to surgery or invasive procedures. NOTE: This is a HIGH ALERT Medication. Given 05/01/2017 40 mg Abdominal 18:54 CDT Tissue ergocalciferol (VITAMIN D-2) capsule Given 05/01/2017 50,000 Units 50,000 Units 10:15 CDT 50,000 Units, Oral, EVERY 7 DAYS, First dose on Wed05/01/17 at 0900, Until Discontinued FENTANYL CITRATE (PF) 50 MCG/ML IJ SOLN Given 05/02/2017 25 mcg (Cabinet Override) 14:00 CDT NOW, 1 dose, 05/02/17 at 1400, Created by cabinet override insulin aspart (NOVOLOG FLEXPEN) Given 05/03/2017 6 Units Abdomen:RUQ injection PEN 0-14 Units 21:27 CDT 0-14 Units, Subcutaneous, BEFORE MEALS AND AT BEDTIME, First dose on Wed05/03/17 at 1200, Until Discontinued, -POC glucose 140-180mg/dL at administer 2 units insulin, at 21, 03* administer 0 units. -POC glucose 181-220mg/dL at administer 4 units insulin, at , 03* administer 2 units. -POC glucose 221-260mg/dL at administer 6 units insulin, at 21, 03* administer 4 units. -POC glucose 261-300mg/dL at administer 8 units insulin, at , 03* administer 6 units. -POC glucose 301-350mg/dL at administer 10 units insulin, at , 03* administer 8 units. -POC glucose 351-400mg/dL at administer 12 units insulin, at , 03* administer 10 units. -POC glucose >400mg/dL at administer 14 units insulin, at , 03* administer 12 units. *only if ordered 5x's daily For POCT glucose >350mg/dL give correction bolus and recheck POCT glucose in 2 hours. If POCT glucose at 2 hours >300mg/dL call physician for further orders. For patients who are not eating meals, continue to administer the appropriate correction factor. NOTE: This is a HIGH ALERT Medication. Given 05/04/2017 4 Units Abdominal 18:56 CDT Tissue Given 05/05/2017 2 Units Abdominal 11:22 CDT Tissue insulin glargine (LANTUS SOLOSTAR) Given 05/03/2017 10 Units Abdomen: RLQ injection PEN 10 Units 21:30 CDT 10 Units, Subcutaneous, AT BEDTIME DAILY, First dose on Wed04/30/17 at 2100, Until Discontinued, -- Do not mix with other insulins -- NOTE: This is a HIGH ALERT Medication. Given 05/04/2017 10 Units Abdominal 21:26 CDT Tissue Given 05/05/2017 10 Units Abdominal 21:23 CDT Tissue iopamidol 370 (ISOVUE-370) injection 100 Given 05/01/2017 100 mL mL 15:00 CDT 100 mL, Intravenous, ONCE, 1 dose, 05/01/17 at 1500, NOTE: This is a HIGH ALERT Medication. leucovorin tablet 25 mg Given 05/04/2017 25 mg 25 mg, Oral, DAILY, First dose on Wed 16:38 CDT 05/04/17 at 1530, Until Discontinued Given 05/05/2017 25 mg 11:23 CDT Given 05/06/2017 25 mg 09:47 CDT levothyroxine (SYNTHROID) tablet 50 mcg Given 05/04/2017 50 mcg 50 mcg, Oral, DAILY 30MIN BEFORE 06:17 CDT BREAKFAST, First dose on 05/01/17 at 0630, Until Discontinued, Give 1 hour before a meal. If patient is receiving tube feedings, hold tube feed 1hr before and 1hr after dose. Given 05/05/2017 50 mcg 11:00 CDT Given 05/06/2017 50 mcg 06:12 CDT loperamide (IMODIUM A-D) capsule 2 mg Given 05/06/2017 2 mg 2 mg, Oral, ONCE, 1 dose, Hilda 05/06/17 at 12:39 CDT 1230, GIVE WITH EACH LOOSE STOOL; NOT TO EXCEED 16MG/24HRS magnesium sulfate 4 g/50 mL IVPB Given - New 05/01/2017 4 g 4 g, Intravenous, 50 mL, Administer over Bag 12:17 CDT 4 Hours, NEEDED, Starting Wed04/30/17 at 1443, Until Hilda 05/06/17 at 1707, Other..., See admin instructions, Do not replace magnesium if serum creatinine is > 2.0. If Serum Magnesium </=2.0 mg/dL, give magnesium sulfate 4 grams IV over 4 hours. Recheck level in AM. If magnesium level </=1.2 mg/dL replace per above and check magnesium level at 1600. If serum magnesium is still </=2.0 mg/dL give additional 4 grams of magnesium over 4 hours and recheck level with am labs. Given - New Bag 05/03/2017 4 g 06:10 CDT Given - New Bag 05/05/2017 4 g 11:39 CDT melatonin tablet 3 mg Given 05/01/2017 3 mg 3 mg, Oral, AT BEDTIME DAILY, First dose 21:29 CDT on Wed04/30/17 at 2100, Until Discontinued Given 05/02/2017 3 mg 21:02 CDT Given 05/03/2017 3 mg 21:24 CDT neomycin/polymyxin/dexamethasone Given 05/05/2017 1 drop (MAXITROL) ophthalmic suspension 1 Drop 11:31 CDT 1 Drop, Left Eye, TWICE DAILY, First dose on Wed05/01/17 at 2100, Until Discontinued Given 05/05/2017 1 drop 21:17 CDT Given 05/06/2017 1 drop 09:51 CDT oxyCODONE (ROXICODONE, OXY-IR) tablet Given 05/01/2017 5 mg 5-10 mg 23:45 CDT 5-10 mg, Oral, EVERY 4 HOURS PRN, Starting Wed04/30/17 at 1726, Until Wed05/04/17 at 1351, Pain PO Given 05/02/2017 5 mg 04:24 CDT Given 05/03/2017 5 mg 04:27 CDT penicillin V potassium (VEETID) tablet Given 05/05/2017 750 mg 750 mg 11:23 CDT 750 mg, Oral, TWICE DAILY, First dose on Wed04/30/17 at 2100, Until Discontinued Given 05/05/2017 750 mg 21:19 CDT Given 05/06/2017 750 mg 09:47 CDT pentamidine (NEBUPENT) nebulizer Given 05/05/2017 300 mg solution 300 mg 14:04 CDT 300 mg, Inhalation, EVERY 28 DAYS, First dose on Wed05/05/17 at 0900, Until Discontinued, ADMINISTERED BY RT (300MG/6ML) polyethylene glycol 3350 (MIRALAX) Given 05/02/2017 17 g packet 17 g 10:43 CDT 17 g, Oral, DAILY, First dose on Wed04/30/17 at 1730, Until Discontinued, 8.5 GRAMS=0.5 PACKET 17 GRAMS=1 PACKET 34 GRAMS=2 PACKETS Given 05/03/2017 17 g 09:47 CDT Given 05/04/2017 17 g 11:14 CDT posaconazole EC (NOXAFIL) tablet 300 mg Given 05/04/2017 300 mg 300 mg, Oral, TWICE DAILY WITH MEALS, 2 16:38 CDT doses, First dose on Wed05/04/17 at 1700, Last dose on Wed05/05/17 at 0800 Given 05/05/2017 300 mg 11:23 CDT posaconazole EC (NOXAFIL) tablet 400 mg Given 05/06/2017 400 mg 400 mg, Oral, DAILY WITH BREAKFAST, 09:46 CDT First dose on Wed05/05/17 at 1700, Until Discontinued potassium chloride IVPB 10 mEq Given - New 05/05/2017 10 mEq 50 mL/hr 10 mEq, Intravenous, 50 mL, Administer Bag 21:16 CDT over 60 Minutes, 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 -For serum potassium 3.5 - 4 mEq/L, give KCI 40 mEq IV over 4 hours (10 mEq over 1 hr (50 mL/hr) x 4 doses) -For serum potassium < 3.5 mEq/L, give KCI 60 mEq IV over 6 hours (10 mEq over 1 hr (50 mL/hr) x 6 doses) and check K+ 30 minutes after completion. If serum potassium is still < 3.5 mEq/L, give an additional 40 mEq IV over 4 hours (10 mEq over 1 hr (50 mL/hr) x 4 doses) x 1 and NOTIFY PHSYCIAN/MENDOZA. NOTE: This is a HIGH ALERT Medication. Given - New Bag 05/06/2017 10 mEq 50 mL/hr 01:00 CDT Given - New Bag 05/06/2017 10 mEq 50 mL/hr 05:51 CDT prednisolone acetate (PRED FORTE) 1 % Given 05/05/2017 1 drop ophthalmic suspension 1 Drop 21:16 CDT 1 Drop, Left Eye, FOUR TIMES DAILY, First dose on Wed05/02/17 at 2100, Until Discontinued, Shake bottle for 10 seconds before administration. Given 05/06/2017 1 drop 09:51 CDT Given 05/06/2017 1 drop 12:40 CDT propranolol (INDERAL) tablet 20 mg Given 05/05/2017 20 mg 20 mg, Oral, THREE TIMES DAILY, First 15:46 CDT dose on Wed04/30/17 at 1730, Until Discontinued, Hold for heart rate < 60 bpm or systolic BP < 90 Given 05/05/2017 20 mg 21:18 CDT Given 05/06/2017 20 mg 09:47 CDT pyrimethamine (DARAPRIM) tablet 200 mg Given 05/04/2017 200 mg 200 mg, Oral, ONCE, 1 dose, Wed05/04/17 16:37 CDT at 1430, Give with food. pyrimethamine (DARAPRIM) tablet 50 mg Given 05/05/2017 50 mg 50 mg, Oral, DAILY, First dose on Wed 11:24 CDT 05/05/17 at 0900, Until Discontinued, Give with food. Given 05/06/2017 50 mg 09:47 CDT senna/docusate (SENOKOT-S) tablet 1 Tab Given 05/03/2017 1 tablet 1 Tab, Oral, TWICE DAILY, First dose on 09:44 CDT Wed04/30/17 at 2100, Until Discontinued, Hold for loose stools Given 05/03/2017 1 tablet 20:29 CDT Given 05/04/2017 1 tablet 11:12 CDT sodium chloride 0.9 % infusion Given - New 05/03/2017 75 mL/hr 1,000 mL, Intravenous, at 75 mL/hr, Bag 12:18 CDT CONTINUOUS, Starting Wed04/30/17 at 1415, Until Wed05/06/17 at 1707 Given - New Bag 05/04/2017 75 mL/hr 06:17 CDT Given - New Bag 05/05/2017 75 mL/hr 21:16 CDT sodium chloride 0.9 % infusion Given - New 05/03/2017 20 mL/hr 1,000 mL, Intravenous, at 20 mL/hr, Bag 13:01 CDT CONTINUOUS, Starting Wed05/03/17 at 1215, Until Wed05/06/17 at 1707, Pre-Op SODIUM CHLORIDE 0.9 % IV SOLP (Cabinet Given - New 05/03/2017 250 mL Override) Bag 06:10 CDT NOW, 1 dose, Wed05/03/17 at 0615, Created by cabinet override SODIUM CHLORIDE 0.9 % IV SOLP (Cabinet Given - New 05/04/2017 1,000 mL Override) Bag 18:55 CDT NOW, 1 dose, Wed05/04/17 at 1800, Created by cabinet override SODIUM CHLORIDE 0.9 % IV SOLP (Cabinet Given - New 05/06/2017 250 mL Override) Bag 06:12 CDT NOW, 1 dose, Wed05/06/17 at 0615, Created by cabinet override sodium chloride PF 0.9% injection 50 mL Given 05/01/2017 50 mL 50 mL, Intravenous, ONCE, 1 dose, Sat 15:00 CDT 05/01/17 at 1500, Intra-procedure (IR) sulfADIAZINE tablet 1,000 mg Given 05/05/2017 1,000 mg 1,000 mg, Oral, FOUR TIMES DAILY, First 17:28 CDT dose on Wed05/04/17 at 1700, Until Discontinued Given 05/05/2017 1,000 mg 21:19 CDT Given 05/06/2017 1,000 mg 09:47 CDT traMADol (ULTRAM) tablet 50-100 mg Given 05/05/2017 50 mg 50-100 mg, Oral, EVERY 6 HOURS PRN, 09:07 CDT Starting Wed05/04/17 at 1350, Until Hilda 05/06/17 at 1707, Pain PO Given 05/05/2017 50 mg 11:10 CDT Given 05/06/2017 50 mg 08:37 CDT traZODone (DESYREL) tablet 25 mg Given 05/03/2017 25 mg 25 mg, Oral, AT BEDTIME DAILY, First 21:22 CDT dose on Wed04/30/17 at 2100, Until Discontinued Given 05/04/2017 25 mg 21:22 CDT Given 05/05/2017 25 mg 21:19 CDT in this encounter
--- OUTSIDE RECORDS SUMMARY | 2017-07-30 04:05 | XMS REPORT | Encounter Summary ---
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 Sex: female Procedure Date: 05/03/2017 Procedure: Procedure(s): FUNCTIONAL ENDOSCOPY SINUS SURGERY WITH MAXILLARY ANTROSTOMY Surgeon: Surgeon(s): MD Charlotte Carlos MD Post-Anesthesia Vitals BP: 164/72 (05/03 1615) Temp: 37.1 C (98.8 F) (05/03 1601) Pulse: 67 (05/03 161) Respirations: 16 PER MINUTE (05/03 161) SpO2: 92 % (05/03 161) O2 Delivery: None (Room Air) (05/03 1630) SpO2 Pulse: 66 (05/03 161) Post Anesthesia Evaluation Note Evaluation location: other Patient participation: recovered; patient participated in evaluation Level of consciousness: alert Pain score: 0 Pain management: adequate Hydration: normovolemia Temperature: 36.0C - 38.4C Airway patency: adequate Perioperative Events Perioperative events: no Post-op nausea and vomiting: no PONV Postoperative Status Cardiovascular status: hemodynamically stable Respiratory status: spontaneous ventilation Follow-up needed: none Associated attestation - Jt Hernandez MD - 05/03/2017 5:17 PM CDT Formatting of this note may be different from the original. ATTESTATION: Post-Anesthesia Evaluation Attestation: I reviewed and agree the indicated post- anesthesia care was provided. Jt Garnica MD Pager [phone] * Anesthesia Preprocedure Evaluation - Stella Tijerina CRNA - 05/03/2017 1: 12 PM CDT Formatting of this note may be different from the original. Anesthesia Pre-Procedure Evaluation Name: Donna Wilde : 1955 Age: 61 y.o. Sex: female Procedure Date: 05/03/2017 Procedure: Procedure(s): FUNCTIONAL ENDOSCOPY SINUS SURGERY WITH MAXILLARY ANTROSTOMY will need culture swabs and specimen cups to send biopsies, possible frozens Physical Assessment Vital Signs (last filed in past 24 hours): BP: 162/63 (05/03 1131) Temp: 36.6 C (97.9 F) (05/03 1131) Pulse: 63 (05/03 1131) Respirations: 16 PER MINUTE (05/03 1131) SpO2: 100 % (05/03 1131) O2 Delivery: None (Room Air) (05/03 1131) Weight: 59.6 kg (131 lb 6.3 oz) (05/03 339) Patient History No Known Allergies Current Medications [...] before meals and at bedtime. Blood-Glucose M[place] [facility] [place] Verio meter brimonidine (ALPHAGAN [...] under the skin at bedtime daily. Insulin [place] (Disposable) 31 gauge x 1/4" ndle Use as needed for insulin administration lancets (ACCU-CHEK FASTCLIX) MISC To check blood [...] to hands and affected areas as needed ncrhzdyv-txixhhhta-ndkfskgauwhjz (MAXITROL) 3.5 mg/g-10,000 unit/g-0.1 % ophthalmic ointment [...] bedtime daily for 60 days. Review of Systems/Medical History Patient summary reviewed Nursing notes reviewed Pertinent labs reviewed PONV Screening: Non-smoker and Female gender No history of anesthetic complications No family history of anesthetic complications Airway - negative Pulmonary - negative Cardiovascular Recent diagnostic studies: ECG ECHO 02/17/17: 1. Normal size left ventricle cavity with [...] ultrasound, consider alternative imaging if clinically indicated Compared with the prior echo/Doppler study on 08-04-16, the heart rate is slower and the LV systolic function is no longer hyperdynamic. There has been no other significant interval changes. 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 Neuro/Psych Neuromuscular disease (generalized weakness) CVA Neuropathy (numbness of fingertips ;) Psychiatric history (ativan for sleep) Depression SAH from fall. (BP parameter SBP<140 mmHg) Cardene gtt off 04/19/17 per ENGINE EMISSION TECHNICIAN. New lesion on MRI mass vs. Infection per neuro and BMT notes Musculoskeletal C-spine cleared Fractures L femur fracture Endocrine/Other Diabetes (30 years. 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 Positive antibodies on blood products. Physical Exam Airway Findings Mallampati: II TM distance: >3 FB Neck ROM: full Mouth opening: good Airway patency: adequate Dental Findings: Cardiovascular Findings: Rhythm: regular Rate: normal Other findings: murmur Pulmonary Findings: Negative Abdominal Findings: Negative Neurological Findings: Negative Diagnostic Tests Hematology: Lab Results Component Value Date HGB 7.9 05/03/2017 HCT 22.2 05/03/2017 PLTCT 92 05/03/2017 WBC 3.4 05/03/2017 NEUT 46 05/03/2017 ANC 1.60 05/03/2017 LYMPH 18 04/19/2017 ALC 1.20 05/03/2017 BRUCE 14 05/03/2017 AMC 0.50 05/03/2017 EOSA 3 05/03/2017 ABC 0.00 05/03/2017 BASOPHILS 2 04/19/2017 MCV 105.9 05/03/2017 MCH 37.5 05/03/2017 MCHC 35.4 05/03/2017 MPV 7.5 05/03/2017 RDW 19.5 05/03/2017 General Chemistry: Lab Results Component Value Date NA 135 05/03/2017 K 4.1 05/03/2017 CL 108 05/03/2017 CO2 22 05/03/2017 GAP 5 05/03/2017 BUN 14 05/03/2017 CR 0.63 05/03/2017 GLU 81 05/03/2017 CA 8.9 05/03/2017 ALBUMIN 2.1 04/22/2017 LACTIC 0.7 04/19/2017 OBSCA 1.35 04/22/2017 MG 1.6 05/03/2017 TOTBILI 0.7 04/22/2017 PO4 2.3 04/26/2017 Coagulation: Lab Results Component Value Date PTT 28.7 05/03/2017 INR 1.0 05/03/2017 Anesthesia Plan ASA score: 4 Plan: general Induction method: intravenous NPO status: acceptable Informed Consent Anesthetic plan and risks discussed with patient and spouse. Plan discussed with: anesthesiologist and RETAIL FINANCIAL ANALYST. in this encounter Plan of Treatment Date Type Specialty Care Team Description 06/28/2017 Procedure Pass Infectious Diseases as of this encounter Visit Diagnoses Not on filein this encounter Administered Medications Medication Order MAR Action Action Date Dose Rate Site acetaminophen (OFIRMEV) 1,000 mg/100 mL Given 05/03/2017 1,000 mg (10 mg/mL) injection 15:05 CDT INTRA-PROCEDURE MED, Starting Wed05/03/17 at 1505, Until Wed05/03/17 at 1605, Pain non-opioid: may be used alone or in combination with opioid analgesia, Anesthesia Intra-op dexamethasone (DECADRON) injection Given 05/03/2017 4 mg Intravenous, INTRA-PROCEDURE MED, 14:28 CDT Starting 05/03/17 at 1428, Until Wed05/03/17 at 1605, Nausea/Vomiting Injectable, Anesthesia Intra-op ePHEDrine sulfate in NS (PF) syringe Given 05/03/2017 5 mg INTRA-PROCEDURE MED, Starting Mon 15:00 CDT 05/03/17 at 1432, Until Wed05/03/17 at 1605, Anesthesia Intra-op Given 05/03/2017 5 mg 15:06 CDT Given 05/03/2017 10 mg 15:30 CDT fentaNYL citrate PF (SUBLIMAZE) Given 05/03/2017 50 mcg injection 25 mcg 14:23 CDT 25 mcg, Intravenous, EVERY 2 HOURS PRN, Starting 05/02/17 at 1356, Until Hilda 05/06/17 at 1707, Pain Injectable, prior to PT Given 05/03/2017 25 mcg 14:45 CDT lidocaine (PF) injection Given 05/03/2017 80 mg INTRA-PROCEDURE MED, Starting Mon 14:23 CDT 05/03/17 at 1423, Until Wed05/03/17 at 1605, Anesthesia Intra-op metroNIDAZOLE (FLAGYL) IVPB Given 05/03/2017 500 mg Administer over 60 Minutes, 14:36 CDT INTRA-PROCEDURE MED, Starting Wed05/03/17 at 1436, Until Wed05/03/17 at 1605, Anesthesia Intra-op ondansetron (ZOFRAN) injection Given 05/03/2017 4 mg Intravenous, INTRA-PROCEDURE MED, 15:38 CDT Starting Wed05/03/17 at 1538, Until Wed05/03/17 at 1605, Nausea/Vomiting Injectable, Anesthesia Intra-op propofol (DIPRIVAN) injection Given 05/03/2017 90 mg INTRA-PROCEDURE MED, Starting Mon 14:21 CDT 05/03/17 at 1421, Until Wed05/03/17 at 1605, Anesthesia Intra-op succinylcholine (ANECTINE) injection Given 05/03/2017 80 mg Intravenous, INTRA-PROCEDURE MED, 14:21 CDT Starting 05/03/17 at 1421, Until Wed05/03/17 at 1605, Anesthesia Intra-op in this encounter
--- OUTSIDE RECORDS SUMMARY | 2017-07-30 04:07 | XMS REPORT | Encounter Summary ---
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 - 03/05/2017: BMBX in CR both by morphology and by Flow, cytogenetics 46 XX, no abnormalities - Chimerism 03/05/2017: is 100% donor donor MANAGER STATE: - MRINew brain lesion on MRI 04/29: concerning for infection or malignancy. "Enhancing nodular medial right cerebellar lesion and numerous additional smaller enhancing juxtacortical bilateral cerebral, basal nuclei, and brainstem lesions with mild associated multifocal vasogenic edema likely reflecting leukemia. Opportunistic intracranial infection could appear similar. Etiology of the brain lesions is still unknown - No prior history of MANAGER STATE malignancy. LP 04/12/17 did not show evidence [...] MRI scan in 2 weeks to assess MANAGER STATE lesions. 3. Neuro/MSK: Traumatic Subarachnoid hemorrhage and [...] home, you can call a dietitian at [phone]. Activity as Tolerated It is important to [...] You must live within 30 minutes of [facility] and have a health care consultant 24 hours a day for the first [...] HOURS (8:00 AM - 4:30 PM): Call [phone] and asked to be transferred to your discharge attending physician. - AFTER BUSINESS HOURS (4:30 PM - 8:00 AM, on weekends, or holidays): Call [phone] and ask the pickle water pump operator to page the on-call doctor for the discharge attending physician. Discharging attending physician: EDWARD MCALLISTER [[id number]] Current Discharge Medication List START taking these [...] Package, Refills: 3 PRESCRIPTION TYPE: Normal Insulin Fawnskin (Disposable) 31 gauge x 1/4" ndle Use [...] areas as needed PRESCRIPTION TYPE: No Print qanxchlq-oljgmpvlv-fcsdzhhriqssp (MAXITROL) 3.5 mg/g-10,000 unit/g-0.1 % ophthalmic ointment [...] CDT Office Visit with Philomena Parry MD [facility] - Neurosurgery (--) [address] [facility] Med Office [facility] 2nd Floor Pod B [facility] [address] May 06, 2017 2:00 PM CDT Office Visit with Asha Henry MD [facility] - Rehabilitation Medicine (--) [address] [facility] Office [facility] 2nd Flr Pod B [facility] [address] May 10, 2017 8:10 AM CDT Office Visit with Shane Sam MD [facility] - Orthopedics (--) [address] [facility] Orthopedics [facility] 1st And 2nd Floor [facility] [address] May 13, 2017 11:30 AM CDT (Arrive by 11:15 AM) Treatment 01 Hour with TX 1 CHAIR [facility] - BMT Treatment (--) [address] [address] May 13, 2017 12:10 PM CDT (Arrive by 11:55 AM) Md-Return Visit-Allo with Annalee Virk MD [facility] - BMT Exam (--) [address] [address] Jul 09, 2017 10:00 AM CDT BONE DENSITY EVAL with IM BONE DENSITY SCHED [facility] - Internal Medicine ([facility] Internal Medicine) 5th Floor Pod A [address] [facility] Med Office [facility] [id number] Jul 09, 2017 10:20 AM CDT Return Patient with Miriam Conti MD [facility] - Internal Medicine (P Internal Medicine) 5th Floor Pod A [address] [facility] Med Office [facility] [address] Pending items needing follow up: - Patient will RTC on 05/13 for labs/MD - Plan to repeat MRI in 2 weeks (week of 05/25-06/04) - Will FU with Ophth on 05/12 or 05/13 depending when they can schedule for vitreous biopsy Signed: Claudine Mendoza, TOWER HAND 05/06/2017 ATTESTATION I personally performed the omalley portions of the E/M visit, discussed case with Nurse Practitioner and concur with documentation of history, physical exam, assessment, and treatment plan unless otherwise noted. Staff name: Edward Mcallister DO Date: 05/06/2017 cc: Primary Care Physician: Na No PCP Verified Referring physicians: Vale Addison MD Additional provider(s): in this encounter Discharge Instructions * Discharge Instr - Case Management - Kylie Thompson RN - 05/06/2017 12:07 PM CDT [facility] [employer] . [facility] [employer] will have the nurse visit you on May 08 and the physical therapist on May 10. [facility] [employer] [facility] [employer] quiana que la enfermera lo visite el [...] or concerns related to the procedure, call [phone] from 7am- 5pm, Wednesday-Wednesday. After-hours and weekends, please call [phone] and ask for the Interventional Line Erector on-call. For procedures performed at the [facility], please call the Radiology dept. [phone], Wednesday-Wednesday, 8am-5pm in this encounter Medications at [...] at bedtime daily. mL) injection PEN Insulin Fawnskin Use as needed for insulin 100 Each [...] petrolatum (ABSORBASE) affected areas as needed oint pjnrjkzy-bxdgxgtky-julvla Apply 1 cm to left eye as [...] of this encounter Progress Notes * Namita Fatima, ROSARIO - 05/06/2017 3:00 PM CDT Donna Nitin Wilde discharged on 05/06/2017. . Discharge instructions reviewed with patient and family. Valuables returned: . Home medications: . Functional assessment at discharge complete: Yes . * Arianna Walker, JAYLIN - 05/06/2017 12:41 PM CDT CLINICAL NUTRITION [...] illness malnutrition criteria. Spoke with patient via training and development assistant Loren Hills. She is planned to discharge [...] 72 Hours Arianna Walker MS, RD, LD *1244 * Namita Fatima RN - 05/06/2017 12:00 [...] - Chimerism 03/05/2017: is 100% donor donor MANAGER STATE: - MRINew brain lesion on MRI 04/29: concerning for infection or malignancy. "Enhancing nodular medial right cerebellar lesion and numerous additional smaller enhancing juxtacortical bilateral cerebral, basal nuclei, and brainstem lesions with mild associated multifocal vasogenic edema likely reflecting leukemia. Opportunistic intracranial infection could appear similar. - No prior history of MANAGER STATE malignancy. LP 04/12/17 did not show evidence [...] MRI scan in 2 weeks to assess MANAGER STATE lesions. 3. Neuro/MSK: Traumatic Subarachnoid hemorrhage and [...] and Respiratory Meds:acetaminophen Q4H PRN, alteplase PRN (Business Management Consultant from Rx) , amitriptyline/gabapentin/emu oil(#) Q8H PRN, benzonatate TID PRN, fentaNYL citrate PF Q2H PRN, magnesium sulfate 4 g/50 mL PRN, mineral oil/white petrolatum TID PRN, potassium chloride PRN (Business Management Consultant from Rx), prochlorperazine Q6H PRN OR prochlorperazine [...] hypothyroidism and AML. Patient was transferred to [facility] from an outside hospital on 04-16-2017 [...] nailing on 04-19-2017. Patient was discharged from [facility] to rehab facility but was quickly re- [...] Parisa Milian MD Infectious Diseases Faculty Pager: [phone] Interval History Donna Wilde is a 61 [...] and Respiratory Meds:acetaminophen Q4H PRN, alteplase PRN (Business Management Consultant from Rx) , amitriptyline/gabapentin/emu oil(#) Q8H PRN, benzonatate TID PRN, fentaNYL citrate PF Q2H PRN, magnesium sulfate 4 g/50 mL PRN, mineral oil/white petrolatum TID PRN, potassium chloride PRN (Business Management Consultant from Rx), prochlorperazine Q6H PRN OR prochlorperazine [...] Recent Labs 05/03/17 0924 05/04/17 0646 05/05/17 0431 05/06/17 0517 WBC -- 3.7* 3.8* 3.0* HGB -- 8.2* 8.1* 8.2* HCT -- 23.1* 22.7* 23.2* PLTCT -- 102* 94* 86* PTT 28.7 -- -- -- INR 1.0 -- -- -- Chemistry Recent Labs 05/04/17 0646 05/05/17 0431 05/06/17 0517 NA 135* 136* 133* K 3.8 [...] right cerebellar lesion. Parisa Milian MD Pager [phone] * Maddie Talbot RN - 05/06/2017 6:31 [...] - We will arrange a follow up. -[phone] If you have any questions, do not hesitate to contact us. Haile Cleary MD Ophthalmology, PGY-2 [phone] [facility] [address] [place] [address] * Namita Fatima, RN - 05/05/2017 3:13 PM CDT Day Shift: [...] Home Equipment: Walker;Cane Prior Function Level Of Mercer: Needed assistance with ADLs;Needed assistance with homemaking;Needed [...] manage roller walker/ safety. Activity Tolerance Endurance: 12/13 Tolerates 25-30 Minutes Exercise w/Multiple Rests Sitting Balance: 12/13 Sits w/o UE Support Up to 30 [...] Patient/Family Barriers To Learning: Language Barrier;Pain Interventions: Elevator Constructor Helper Present (son to interpret) Teaching Methods: Verbal [...] If patient does discharge home would require: 24/ assistance, assist with all ADLs, DME (shower chair, commode) Equipment Recommendations: Too early to be determined Therapist: ASUNCION Ppo/Wei [id number] Date: 05/05/2017 * Edward Mcallister, - 05/05/2017 10:18 AM CDT Formatting of [...] - Chimerism 03/05/2017: is 100% donor donor MANAGER STATE: - MRINew brain lesion on MRI 04/29: concerning for infection or malignancy. "Enhancing nodular medial right cerebellar lesion and numerous additional smaller enhancing juxtacortical bilateral cerebral, basal nuclei, and brainstem lesions with mild associated multifocal vasogenic edema likely reflecting leukemia. Opportunistic intracranial infection could appear similar. - No prior history of MANAGER STATE malignancy. LP 04/12/17 did not show evidence [...] and Respiratory Meds:acetaminophen Q4H PRN, alteplase PRN (Business Management Consultant from Rx) , amitriptyline/gabapentin/emu oil(#) Q8H PRN, benzonatate TID PRN, fentaNYL citrate PF Q2H PRN, magnesium sulfate 4 g/50 mL PRN, mineral oil/white petrolatum TID PRN, potassium chloride PRN (Business Management Consultant from Rx), prochlorperazine Q6H PRN OR prochlorperazine Q6H PRN, traMADol Q6H PRN Vital Signs: Last Filed Vital Signs: 24 Hour Range BP: 148/66 (05/05 0803) Temp: 36.7 C (98.1 F) (05/05 803) [...] hypothyroidism and AML. Patient was transferred to [facility] from an outside hospital on 04-16-2017 [...] with therapy. Patient is going to need 24/ assist at home upon discharge for safety [...] Parisa Milian MD Infectious Diseases Faculty Pager: [phone] Interval History Donna Wilde is a 61 [...] and Respiratory Meds:acetaminophen Q4H PRN, alteplase PRN (Business Management Consultant from Rx) , amitriptyline/gabapentin/emu oil(#) Q8H PRN, benzonatate TID PRN, fentaNYL citrate PF Q2H PRN, magnesium sulfate 4 g/50 mL PRN, mineral oil/white petrolatum TID PRN, potassium chloride PRN (Business Management Consultant from Rx), prochlorperazine Q6H PRN OR prochlorperazine [...] right cerebellar lesion. Parisa Milian MD Pager [phone] * Maddie Talbot RN - 05/05/2017 6:12 AM CDT Shift: 7p-7a NEWS Score: 0,0,0 [...] increase nutritional intake-1-2 boosts daily. Pt is comoran speaking-will need lead systems architect for discussion with physicians throughout day. Pt needs magnesium this AM. Pt's potassium is 4.0; pt is high goal replacements, need to talk with team about high goal replacements and see if all 4 bags is necessary due to 1 IV line and how slow potassium has to run throughout day. * Lindsay Tucker, RN - 05/04/2017 7:47 PM CDT Shift: [...] hypothyroidism and AML. Patient was transferred to [facility] from an outside hospital on 04-16-2017 [...] ASSESSMENT NOTE Patient Name: Donna Wilde Room/Bed: [address] [place] [address] Admitting Diagnosis: myeloproliferative neoplasms Brain mass Past [...] Home Equipment: Walker;Cane Prior Function Level Of Mercer: Needed assistance with ADLs;Needed assistance with homemaking;Needed [...] above evaluation and clinical judgment. Therapist: Teresa Gallegos OTR/Wei [id number] Date: 05/04/2017 * Edward Mcallister DO [...] - Chimerism 03/05/2017: is 100% donor donor MANAGER STATE: - MRINew brain lesion on MRI 04/29: concerning for infection or malignancy. "Enhancing nodular medial right cerebellar lesion and numerous additional smaller enhancing juxtacortical bilateral cerebral, basal nuclei, and brainstem lesions with mild associated multifocal vasogenic edema likely reflecting leukemia. Opportunistic intracranial infection could appear similar. - No prior history of MANAGER STATE malignancy. LP 04/12/17 did not show evidence [...] GvHD present oral lichen planus. Subjective: Donna Felicianomickie Wilde is a 61 y.o. female Headaches [...] and Respiratory Meds:acetaminophen Q4H PRN, alteplase PRN (Business Management Consultant from Rx) , amitriptyline/gabapentin/emu oil(#) Q8H PRN, benzonatate TID PRN, fentaNYL citrate PF Q2H PRN, magnesium sulfate 4 g/50 mL PRN, mineral oil/white petrolatum TID PRN, oxyCODONE Q4H PRN, potassium chloride PRN (Business Management Consultant from Rx) , prochlorperazine Q6H PRN OR [...] 0646) POC Glucose (Download): (!) 277 (05/03/17 4868) Radiology Review: Pertinent radiology reviewed. * Michell [...] assessed for need for restraints. Please call [phone] with any questions. Michell Crespo MD * [...] Date: 05/04/2017 General Progress Note Name: Donna Taverasmickie Wilde Today's Date: 05/04/2017 Admission Date: 04/30/2017 [...] saline sprays - recommend patient to call [phone] to schedule follow up for [address] Montelongo - please call with further questions Ray Vanessa 0051 Subjective Donna Felicianomickie Wilde is a 61 y.o. female. Patient [...] and Respiratory Meds:acetaminophen Q4H PRN, alteplase PRN (Business Management Consultant from Rx) , amitriptyline/gabapentin/emu oil(#) Q8H PRN, benzonatate TID PRN, fentaNYL citrate PF Q2H PRN, magnesium sulfate 4 g/50 mL PRN, mineral oil/white petrolatum TID PRN, oxyCODONE Q4H PRN, potassium chloride PRN (Business Management Consultant from Rx) , prochlorperazine Q6H PRN OR [...] 0 Physical Exam Physical Exam: General appearance: oDnna is in no distress and is alert [...] of a clinically significant antibody. Unit Number [id number] Blood Component Type RBC,ADSOL,LEUKO REDUCED,IRRADIATED,1ST CONT. Unit Division 0 Status OF Unit ALLOCATED Transfusion Status OK TO TRANSFUSE Crossmatch Result COMPATIBLE, GEL Antigen Type (Units) Jk(a) antigen NEG, Unit Number [id number] Blood Component Type RBC,ADSOL,LEUKO REDUCED,IRRADIATED Unit Division 0 Status OF Unit ALLOCATED Transfusion Status OK TO TRANSFUSE Crossmatch Result COMPATIBLE, GEL Antigen Type (Units) Jk(a) antigen NEG, Unit Number [id number] Blood Component Type RBC,ADSOL,LEUKO REDUCED,IRRADIATED Unit Division 0 Status OF Unit REL FROM ALLOC Transfusion Status DO NOT ISSUE FOR TRANSFUSION Crossmatch Result NOT DONE Antigen Type (Units) Jk(a) antigen POS, Unit Number [id number] Blood Component Type RBC,ADSOL,LEUKO REDUCED,IRRADIATED Unit Division 0 Status OF Unit REL FROM ALLOC Transfusion Status DO NOT ISSUE FOR TRANSFUSION Crossmatch Result NOT DONE Antigen Type (Units) Jk(a) antigen POS, Unit Number [id number] Blood Component Type RBC,ADSOL,LEUKO REDUCED,IRRADIATED Unit Division 0 Status OF Unit REL FROM ALLOC Transfusion Status DO NOT ISSUE FOR TRANSFUSION Crossmatch Result NOT DONE Antigen Type (Units) Jk(a) antigen POS, Unit Number [id number] Blood Component Type RBC,ADSOL,LEUKO REDUCED,IRRADIATED Unit Division 0 Status OF Unit REL FROM ALLOC Transfusion Status DO NOT ISSUE FOR TRANSFUSION Crossmatch Result NOT DONE Antigen Type (Units) Jk(a) antigen POS, Unit Number [id number] Blood Component Type RBC,ADSOL,LEUKO REDUCED,IRRADIATED Unit Division 0 Status OF Unit REL FROM ALLOC Transfusion Status DO NOT ISSUE FOR TRANSFUSION Crossmatch Result NOT DONE Antigen Type (Units) Jk(a) antigen POS, Unit Number [id number] Blood Component Type RBC,ADSOL,LEUKO REDUCED,IRRADIATED Unit Division [...] 0646) POC Glucose (Download): (!) 277 (05/03/17 7157) Radiology and other Diagnostics Review: Pertinent radiology reviewed. Zackery Mendez MD Pager [phone] * Parisa Milian MD - 05/04/2017 7:58 [...] - can help to evaluate for primary MANAGER STATE lymphoma as an etiology - CSF galactomannan [...] Parisa Milian MD Infectious Diseases Faculty Pager: [phone] Interval History Donna Wilde is a 61 [...] and Respiratory Meds:acetaminophen Q4H PRN, alteplase PRN (Business Management Consultant from Rx) , amitriptyline/gabapentin/emu oil(#) Q8H PRN, benzonatate TID PRN, fentaNYL citrate PF Q2H PRN, magnesium sulfate 4 g/50 mL PRN, mineral oil/white petrolatum TID PRN, oxyCODONE Q4H PRN, potassium chloride PRN (Business Management Consultant from Rx) , prochlorperazine Q6H PRN OR [...] right cerebellar lesion. Irma Boswell DO Pager [phone] Infectious Diseases Fellow, PGY4 * Aaliyah Yang [...] -no acute events overnight * Arianna Walker, JAYLIN - 05/03/2017 5:12 PM CDT CLINICAL NUTRITION Chart/labs reviewed, patient is day 2 at potential nutrition risk, and consult noted for nutrition assessment. She has been off unit to OR this afternoon. Will plan for full assessment tomorrow. Arianna Walker MS, RD, LD *2041 * Darcy Stephens, RN - 05/03/2017 4:00 PM CDT Elevator Constructor Helper Kisha Torres at bedside * Bryan Tucker, PT - 05/03/2017 2:50 PM CDT PHYSICAL THERAPY NOTE Patient had lumbar puncture this date with bedrest protocol with bathroom privileges only for 8 hours. Patient also with other test/procedures this afternoon PT will continue to follow and assist as able on Wednesday. Therapist: Bryan Tucker, DPT Date: 05/03/2017 * Lindsay Lucero, RN - 05/03/2017 2:00 PM CDT Per [...] and chux. 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 Family: at bedside. Last shower/Linen change: [...] Lucero RN - 05/03/2017 12:50 PM CDT Elevator Constructor Helper present * Haile Cleary MD - 05/03/2017 [...] - can help to evaluate for primary MANAGER STATE lymphoma as an etiology - CSF galactomannan [...] Parisa Milian MD Infectious Diseases Faculty Pager: [phone] Interval History Donna Wilde is a 61 [...] and Respiratory Meds:acetaminophen Q4H PRN, alteplase PRN (Business Management Consultant from Rx) , amitriptyline/gabapentin/emu oil(#) Q8H PRN, benzonatate TID PRN, fentaNYL citrate PF Q2H PRN, magnesium sulfate 4 g/50 mL PRN, mineral oil/white petrolatum TID PRN, oxyCODONE Q4H PRN, potassium chloride PRN (Business Management Consultant from Rx) , prochlorperazine Q6H PRN OR prochlorperazine Q6H PRN Physical Examination Vital Signs: Last Vital Signs: 24 Hour Range BP: 162/63 (05/03 1131) Temp: 36.6 C (97.9 F) (05/03 113) Pulse: 63 (05/03 113) Respirations: 16 PER MINUTE (05/03 1131) SpO2: 100 % (05/03 1131) O2 Delivery: None (Room Air) (05/03 1131) SpO2 Pulse: 66 (05/03 0854) BP: (127-166)/(54-74) [...] CL 109 108 108 CO2 22 22 22 BUN 17 16 14 CR [...] right cerebellar lesion. Irma Boswell DO Pager [phone] Infectious Diseases Fellow, PGY4 * Edward Mcallister [...] - Chimerism 03/05/2017: is 100% donor donor MANAGER STATE: - MRINew brain lesion on MRI 04/29: concerning for infection or malignancy. "Enhancing nodular medial right cerebellar lesion and numerous additional smaller enhancing juxtacortical bilateral cerebral, basal nuclei, and brainstem lesions with mild associated multifocal vasogenic edema likely reflecting leukemia. Opportunistic intracranial infection could appear similar. - No prior history of MANAGER STATE malignancy. LP 04/12/17 did not show evidence [...] and Respiratory Meds:acetaminophen Q4H PRN, alteplase PRN (Business Management Consultant from Rx) , amitriptyline/gabapentin/emu oil(#) Q8H PRN, benzonatate TID PRN, fentaNYL citrate PF Q2H PRN, magnesium sulfate 4 g/50 mL PRN, mineral oil/white petrolatum TID PRN, oxyCODONE Q4H PRN, potassium chloride PRN (Business Management Consultant from Rx) , prochlorperazine Q6H PRN OR prochlorperazine Q6H PRN Vital Signs: Last Filed Vital Signs: 24 Hour Range BP: 149/69 (05/03 0845) Temp: 36.9 C (98.4 F) (05/03 0756) Pulse: 63 (05/03 08) Respirations: 24 PER MINUTE (05/03 854) SpO2: 97 % (05/03 854) O2 Delivery: [...] assessed for need for restraints. Please call [phone] with any questions. Michell Crespo MD * Aaliyah Yang, RN - 05/03/2017 5:19 AM CDT Shift: 7p-7a NEWS Score: 0, 0, 0 Pain: Pt [...] surveillance BC drawn at 1600 * Bryan Tucker, PT - 05/02/2017 1:40 PM CDT PHYSICAL THERAPY ASSESSMENT MOBILITY: Mobility Progressive Mobility Level: Active transfer to chair Level of Assistance: Assist X1 Assistive Device: Hand Held Time Tolerated: 11-30 minutes Activity Limited By: Pain SUBJECTIVE: Subjective Significant hospital events: 61 year old female with a past medical history of HTN, HLD, DM, hypothyroidism and AML. Patient was transferred to [facility] from an outside hospital on 04-16-2017 [...] - Chimerism 03/05/2017: is 100% donor donor MANAGER STATE: - MRINew brain lesion on MRI 04/29: concerning for infection or malignancy. "Enhancing nodular medial right cerebellar lesion and numerous additional smaller enhancing juxtacortical bilateral cerebral, basal nuclei, and brainstem lesions with mild associated multifocal vasogenic edema likely reflecting leukemia. Opportunistic intracranial infection could appear similar. - No prior history of MANAGER STATE malignancy. LP 04/12/17 did not show evidence [...] and Respiratory Meds:acetaminophen Q4H PRN, alteplase PRN (Business Management Consultant from Rx) , benzonatate TID PRN, magnesium sulfate 4 g/50 mL PRN, mineral oil/white petrolatum TID PRN, oxyCODONE Q4H PRN, potassium chloride PRN (Business Management Consultant from Rx) , prochlorperazine Q6H PRN OR [...] (Last 24 hours): Glucose: (!) 116 (05/02/17 0551) Radiology Review: Pertinent radiology reviewed. Varun Thornton MD, MRCP Lead Systems Architect Division Of Hematologic Malignancies and [employer] [facility] * Aaliyah Yang RN - 05/02/2017 5:49 AM CDT Shift: 6548-6712 NEWS Score: 0, 0 Pain: Pt with [...] Follow-up: -no acute events overnight * Julianna Giang, ROSARIO - 05/02/2017 12:35 AM CDT Report given [...] - Chimerism 03/05/2017: is 100% donor donor MANAGER STATE: - MRINew brain lesion on MRI 04/29: concerning for infection or malignancy. "Enhancing nodular medial right cerebellar lesion and numerous additional smaller enhancing juxtacortical bilateral cerebral, basal nuclei, and brainstem lesions with mild associated multifocal vasogenic edema likely reflecting leukemia. Opportunistic intracranial infection could appear similar. - No prior history of MANAGER STATE malignancy. LP 04/12/17 did not show evidence [...] and Respiratory Meds:acetaminophen Q4H PRN, alteplase PRN (Business Management Consultant from Rx) , benzonatate TID PRN, magnesium sulfate 4 g/50 mL PRN, mineral oil/white petrolatum TID PRN, oxyCODONE Q4H PRN, potassium chloride PRN (Business Management Consultant from Rx) , prochlorperazine Q6H PRN OR [...] Pertinent radiology reviewed. Varun Thornton MD, MRCP Lead Systems Architect Division Of Hematologic Malignancies and [employer] [facility] * Julianna Hernandez, RN - 05/01/2017 1:48 PM CDT training and development assistant at [facility] for MD rounds: Georgie Qureshi * Megan [...] Date: 04/30/2017 Omalley AC=Airway clearance AM=Aerosolized medication BA=[place] aerosol DB&C=Deep breathe & cough FEV1=Forced expiratory volume in first second) IC=Inspiratory capacity LE=Lung expansion MDI=Metered dose inhaler Neb=Nebulizer O2=Oxygen Oxim=Oximetry PEFR=Peak expiratory flow rate MANAGER OF ENVIRONMENTAL SERVICES=Rapid Response Team in this encounter H&P Notes * Elliott Holloway APRN-NP - 05/03/2017 7:51 AM CDT Formatting of [...] hemorrhage following injury, with loss of consciousness ([facility]) 04/28/2017 Traumatic brain injury ([facility]) 04/28/2017 Lesion of cerebellum 04/28/2017 Closed displaced intertrochanteric fracture of left femur ([facility]) 04/28/2017 Cognitive impairment 04/28/2017 Impaired mobility and activities of daily living 04/28/2017 SAH (subarachnoid hemorrhage) ([facility]) 04/27/2017 Delirium 04/25/2017 Sleep disturbance 04/25/2017 Hyponatremia 04/25/2017 Vitamin D deficiency 04/25/2017 Acute pain due to trauma 04/20/2017 Cerebellar stroke ([facility]) 04/20/2017 Abrasion of face 04/20/2017 Hypertension 04/20/2017 Hypokalemia 04/20/2017 Acute blood loss anemia 04/20/2017 Thrombocytopenia ([facility]) 04/20/2017 Pancytopenia ([facility]) 04/20/2017 DM w/o complication type II ([facility]) 04/20/2017 Closed intertrochanteric fracture of left femur ([facility]) 04/20/2017 Dysphagia 04/20/2017 Traumatic compression fracture of T11 thoracic vertebra ([facility]) 04/20/2017 Sympathetic storming 04/20/2017 Facial laceration 04/20/2017 Facial abrasion 04/20/2017 Uveitis 04/20/2017 Leukocytopenia 04/20/2017 Hypothyroid 04/20/2017 Hip fracture ([facility]) 04/16/2017 Subarachnoid bleed ([facility]) 04/16/2017 Pneumonia of both lungs due to [...] of both eyes 06/24/2016 Hyperparathyroidism (HCC) 06/10/2016 Bilge-fcllmb-rqfx disease, acute (HCC) 04/16/2016 Severe malnutrition (HCC) [...] performed by Shane Lynn MD at ENDO/GI DE ESOPHAGOGASTRODUODENOSCOPY TRANSORAL DIAGNOSTIC N/A 09/09/2016 ESOPHAGOGASTRODUODENOSCOPY performed by Hermila Cornejo MD at ENDO/GI DE PROPH TX N/P/PLTWR W/WO METHYLMETHACRYLATE FEMUR Left 04/19/2017 INSERTION CEPHALOMEDULLARY NAIL FEMUR performed by Shane Sam MD at Main OR/ Periop DE SIGMOIDOSCOPY FLX DX W/COLLJ SPEC BR/WA IF PFRMD N/A 04/14/2016 SIGMOIDOSCOPY DIAGNOSTIC performed by Shane Lynn MD at ENDO/GI DE SIGMOIDOSCOPY FLX DX W/COLLJ SPEC BR/WA IF PFRMD N/A 07/29/2016 SIGMOIDOSCOPY DIAGNOSTIC performed by Niharika Lam MD at ENDO/GI DE SIGMOIDOSCOPY FLX DX W/COLLJ SPEC BR/WA IF PFRMD N/A 09/09/2016 SIGMOIDOSCOPY DIAGNOSTIC performed by Hermila Cornejo MD at ENDO/GI DE SIGMOIDOSCOPY FLX W/BIOPSY SINGLE/MULTIPLE 09/09/2016 SIGMOIDOSCOPY BIOPSY [...] bedtime. 100 Strip 6 Taking Blood-Glucose Meter misc One Touch Verio meter [...] at bedtime daily. 3 Package 3 Insulin Fawnskin (Disposable) 31 gauge x 1/4" ndle Use as needed for insulin administration 100 Each 6 Taking lancets (ACCU-CHEK FASTCLIX) MISC To check blood [...] hands and affected areas as needed Taking zmasfacu-mcodqsdng-kvyupczywgpsp (MAXITROL) 3.5 mg/g-10,000 unit/g-0.1 % ophthalmic ointment [...] C (98 F) (05/03 339) Pulse: 66 (05/03 339) Respirations: 18 PER MINUTE (05/03 339) SpO2: 100 % (05/03 339) O2 Delivery: None (Room Air) (05/03 339) BP: (127-153)/(54-64) Temp: [36.4 C (97.5 F)-36.8 C (98.2 F)] Pulse: [62-66] Respirations: [14 PER MINUTE-18 PER MINUTE] SpO2: [98 %-100 %] O2 Delivery: None (Room Air) Intensity Pain Scale 0-10 (Pain 1): 2 (05/02/17 2114) Airway: airway assessment performed Mallampati III (soft [...] above planned procedures with Armen Wilde and training and development assistant who gave consent Lab/Radiology/Other Diagnostic Tests: Labs: Pertinent labs reviewed Elliott Holloway APRN-FOREIGN EXCHANGE STUDENT COORDINATOR Pager [phone] * Vale Addison MD - 04/30/2017 5:58 [...] could appear similar. No prior history of MANAGER STATE malignancy. LP 04/12/17 did not show evidence [...] Donor & Cell source: matched sib (sister) [id number] PSC CMV: both POS ABO: both O POS Consents/Studies: 8322, blood, H&P, KAYLEE Flu/Hermila allo consent Coordinator: RUDDY MCKINNON RN Chief Complaint: Admit for brain lesions identified on MRI History of Present Illness: Donan Wilde is a 61 y.o. female Transferred from rehab for evidence of brain lesion on MRI. Spoke to patient with lead systems architect and family present. Patient has been feeling [...] DM, HTN and HLD who presented from [facility] ED with a leukocytosis concerning for Leukemia. Per her daughter, in early December 2014 she developed a chronic cough which was unremitting. She then presented to due to [facility] ED with complains of weakness, fatigue [...] and referred to Dr. Óscar Jones in [place], hydrea was DC due to thrombocytopenia. She [...] performed by Shane Lynn MD at ENDO/GI DE ESOPHAGOGASTRODUODENOSCOPY TRANSORAL DIAGNOSTIC N/A 09/09/2016 ESOPHAGOGASTRODUODENOSCOPY performed by Hermila Cornejo MD at ENDO/GI DE PROPH TX N/P/PLTWR W/WO METHYLMETHACRYLATE FEMUR Left 04/19/2017 INSERTION CEPHALOMEDULLARY NAIL FEMUR performed by Shane Sam MD at [facility] OR/ Periop DE SIGMOIDOSCOPY FLX DX W/COLLJ SPEC BR/WA IF PFRMD N/A 04/14/2016 SIGMOIDOSCOPY DIAGNOSTIC performed by Shane Lynn MD at ENDO/GI DE SIGMOIDOSCOPY FLX DX W/COLLJ SPEC BR/WA IF PFRMD N/A 07/29/2016 SIGMOIDOSCOPY DIAGNOSTIC performed by Niharika Lam MD at ENDO/GI DE SIGMOIDOSCOPY FLX DX W/COLLJ SPEC BR/WA IF PFRMD N/A 09/09/2016 SIGMOIDOSCOPY DIAGNOSTIC performed by Hermila Cornejo MD at ENDO/GI DE SIGMOIDOSCOPY FLX W/BIOPSY SINGLE/MULTIPLE 09/09/2016 SIGMOIDOSCOPY BIOPSY [...] as needed for Cough. blood sugar diagnostic (Casentric VERIO) test strip 1 Strip before meals and at bedtime. Blood-Glucose Meter [facility] One Touch Verio meter brimonidine (ALPHAGAN P) [...] under the skin at bedtime daily. Insulin Fawnskin (Disposable) 31 gauge x 1/4" ndle Use as needed for insulin administration lancets (ACCU-CHEK FASTCLIX) [facility] To check blood sugars before meals and [...] to hands and affected areas as needed kuasgwpr-nnbecmwqr-weqxmkfyhzhss (MAXITROL) 3.5 mg/g-10,000 unit/g-0.1 % ophthalmic ointment [...] Pager in this encounter Consult Notes * SamirJenniferchuckArianna, RD - 05/04/2017 1:00 PM CDT Associated [...] and spouse with BMT team today via training and development assistant Amairani Wong. Team strongly encouraging patient to [...] fracture of left femur (HCC) Physical Symptoms: #MANAGER STATE Lesions: numerous, etiology under investigation --concern for [...] to taste --possible components of depression and MANAGER STATE infection/recurrence of AML --recommend liberalized diet #Depression/anxiety [...] They have been told by physicians in [place] at the time of the patient's diagnosis [...] MD Hospice and Palliative Medicine PGY4 Pager: [phone] History of Present Illness: Donna Wilde is a 61 y.o. female, comoran-speaking only. 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 Early April, the patient was initially transferred to [facility] for minutes at hospital following a traumatic fall. She sustained a fracture and was also found to have non-aneurysmal subarachnoid hemorrhage. Her hip fracture was stabilized with intramedullary nailing 04/19/2017. Subarachnoid hemorrhage resolved without incident. She was transferred to [facility] inpatient rehab 04/27/2017. In the course [...] in the patient's brain most likely represent MANAGER STATE spread of the patient's AML. Should the patient have MANAGER STATE spread of her AML, treatment options would [...] dysphagia, abdominal discomfort, diarrhea, or constipation. Modified Mabel Symptom Assessment Scale: Patient Report Symptoms (Past [...] performed by Shane Lynn MD at ENDO/GI DE ESOPHAGOGASTRODUODENOSCOPY TRANSORAL DIAGNOSTIC N/A 09/09/2016 ESOPHAGOGASTRODUODENOSCOPY performed by Hermila Cornejo MD at ENDO/GI DE NASAL/SINUS ENDOSCOPY W/MAXILLARY ANTROSTOMY Left 05/03/2017 FUNCTIONAL ENDOSCOPY SINUS SURGERY WITH MAXILLARY ANTROSTOMY performed by Kandice Montelongo MD at [facility] OR/Periop DE PROPH TX N/P/PLTWR W/WO METHYLMETHACRYLATE FEMUR Left 04/19/2017 INSERTION CEPHALOMEDULLARY NAIL FEMUR performed by Shane Sam MD at [facility] OR/ Periop DE SIGMOIDOSCOPY FLX DX W/COLLJ SPEC BR/WA IF PFRMD N/A 04/14/2016 SIGMOIDOSCOPY DIAGNOSTIC performed by Shaen Lynn MD at ENDO/GI DE SIGMOIDOSCOPY FLX DX W/COLLJ SPEC BR/WA IF PFRMD N/A 07/29/2016 SIGMOIDOSCOPY DIAGNOSTIC performed by Niharika Lam MD at ENDO/GI DE SIGMOIDOSCOPY FLX DX W/COLLJ SPEC BR/WA IF PFRMD N/A 09/09/2016 SIGMOIDOSCOPY DIAGNOSTIC performed by Hermila Cornejo MD at ENDO/GI DE SIGMOIDOSCOPY FLX W/BIOPSY SINGLE/MULTIPLE 09/09/2016 SIGMOIDOSCOPY BIOPSY [...] and Respiratory Meds:acetaminophen Q4H PRN, alteplase PRN (Business Management Consultant from Rx) , amitriptyline/gabapentin/emu oil(#) Q8H PRN, benzonatate TID PRN, fentaNYL citrate PF Q2H PRN, magnesium sulfate 4 g/50 mL PRN, mineral oil/white petrolatum TID PRN, oxyCODONE Q4H PRN, potassium chloride PRN (Business Management Consultant from Rx) , prochlorperazine Q6H PRN OR prochlorperazine Q6H PRN Vital Signs: Last Filed in 24 hours Vital Signs: 24 hour Range BP: 128/57 (05/04 1115) Temp: 36.6 C (97.8 F) (05/04 1115) Pulse: 66 (05/04 1115) Respirations: 14 PER MINUTE (05/04 111) SpO2: 100 % (05/04 1115) O2 Delivery: None (Room Air) (05/04 1115) SpO2 Pulse: 66 (05/03 1615) BP: (102-177)/(54-72) [...] maxillary antrostomy, possible maxillectomy. Consent obtained with lead systems architect. Risks discussed including bleeding, infection, crusting, greater [...] performed by Shane Lynn MD at ENDO/GI DE ESOPHAGOGASTRODUODENOSCOPY TRANSORAL DIAGNOSTIC N/A 09/09/2016 ESOPHAGOGASTRODUODENOSCOPY performed by Hermila Cornejo MD at ENDO/GI DE PROPH TX N/P/PLTWR W/WO METHYLMETHACRYLATE FEMUR Left 04/19/2017 INSERTION CEPHALOMEDULLARY NAIL FEMUR performed by Shane Sam MD at Main OR/ Periop DE SIGMOIDOSCOPY FLX DX W/COLLJ SPEC BR/WA IF PFRMD N/A 04/14/2016 SIGMOIDOSCOPY DIAGNOSTIC performed by Shane Lynn MD at ENDO/GI DE SIGMOIDOSCOPY FLX DX W/COLLJ SPEC BR/WA IF PFRMD N/A 07/29/2016 SIGMOIDOSCOPY DIAGNOSTIC performed by Niharika Lam MD at ENDO/GI DE SIGMOIDOSCOPY FLX DX W/COLLJ SPEC BR/WA IF PFRMD N/A 09/09/2016 SIGMOIDOSCOPY DIAGNOSTIC performed by Hermila Cornejo MD at ENDO/GI DE SIGMOIDOSCOPY FLX W/BIOPSY SINGLE/MULTIPLE 09/09/2016 SIGMOIDOSCOPY BIOPSY [...] and Respiratory Meds:acetaminophen Q4H PRN, alteplase PRN (Business Management Consultant from Rx) , amitriptyline/gabapentin/emu oil(#) Q8H PRN, benzonatate TID PRN, fentaNYL citrate PF Q2H PRN, magnesium sulfate 4 g/50 mL PRN, mineral oil/white petrolatum TID PRN, oxyCODONE Q4H PRN, potassium chloride PRN (Business Management Consultant from Rx) , prochlorperazine Q6H PRN OR [...] of consciousness (HCC) 04/28/2017 Traumatic brain injury ([facility]) 04/28/2017 Lesion of cerebellum 04/28/2017 Closed displaced intertrochanteric fracture of left femur ([facility]) 04/28/2017 Cognitive impairment 04/28/2017 Impaired mobility and activities of daily living 04/28/2017 SAH (subarachnoid hemorrhage) ([facility]) 04/27/2017 Delirium 04/25/2017 Sleep disturbance 04/25/2017 Hyponatremia 04/25/2017 Vitamin D deficiency 04/25/2017 Acute pain due to trauma 04/20/2017 Cerebellar stroke ([facility]) 04/20/2017 Abrasion of face 04/20/2017 Hypertension 04/20/2017 Hypokalemia 04/20/2017 Acute blood loss anemia 04/20/2017 Thrombocytopenia ([facility]) 04/20/2017 Pancytopenia ([facility]) 04/20/2017 DM w/o complication type II ([facility]) 04/20/2017 Closed intertrochanteric fracture of left femur ([facility]) 04/20/2017 Dysphagia 04/20/2017 Traumatic compression fracture of T11 thoracic vertebra ([facility]) 04/20/2017 Sympathetic storming 04/20/2017 Facial laceration 04/20/2017 Facial abrasion 04/20/2017 Uveitis 04/20/2017 Leukocytopenia 04/20/2017 Hypothyroid 04/20/2017 Hip fracture ([facility]) 04/16/2017 Subarachnoid bleed ([facility]) 04/16/2017 Pneumonia of both lungs due to infectious organism 04/15/2017 Panuveitis of left eye 04/07/2017 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 04/05/2017 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 03/24/2017 Hyperbilirubinemia 02/19/2017 Watery diarrhea 02/19/2017 Hypoxia 02/16/2017 Pneumonia 02/16/2017 Sepsis ([facility]) 02/16/2017 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remission ([facility]) 02/16/2017 H/O bone marrow transplant ([facility]) 02/16/2017 History of pancytopenia 02/16/2017 Thrombocytopenia ([facility]) 01/05/2017 Primary hyperparathyroidism ([facility]) 12/01/2016 Lesion of oral mucosa 12/01/2016 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[facility]) 10/27/2016 Hypomagnesemia 10/20/2016 Hypogammaglobulinemia ([facility]) 10/16/2016 Thrush 10/13/2016 Hypokalemia 09/24/2016 Electrolyte imbalance 09/22/2016 Chemotherapy-induced neuropathy ([facility]) 09/22/2016 Pancytopenia due to chemotherapy ([facility]) 09/22/2016 Recurrent Clostridium difficile diarrhea 09/22/2016 Depression 08/14/2016 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 Total bilirubin, elevated 08/13/2016 Hyperopia with presbyopia of both eyes 06/24/2016 Hyperparathyroidism (HCC) 06/10/2016 Mtalk-upsyrb-snyy disease, acute (HCC) 04/16/2016 Severe malnutrition (HCC) [...] performed by Shane Lynn MD at ENDO/GI DE ESOPHAGOGASTRODUODENOSCOPY TRANSORAL DIAGNOSTIC N/A 09/09/2016 ESOPHAGOGASTRODUODENOSCOPY performed by Hermila Cornejo MD at ENDO/GI DE PROPH TX N/P/PLTWR W/WO METHYLMETHACRYLATE FEMUR Left 04/19/2017 INSERTION CEPHALOMEDULLARY NAIL FEMUR performed by Shane Sam MD at Main OR/ Periop DE SIGMOIDOSCOPY FLX DX W/COLLJ SPEC BR/WA IF PFRMD N/A 04/14/2016 SIGMOIDOSCOPY DIAGNOSTIC performed by Shane Lynn MD at ENDO/GI DE SIGMOIDOSCOPY FLX DX W/COLLJ SPEC BR/WA IF PFRMD N/A 07/29/2016 SIGMOIDOSCOPY DIAGNOSTIC performed by Niharika Lam MD at ENDO/GI DE SIGMOIDOSCOPY FLX DX W/COLLJ SPEC BR/WA IF PFRMD N/A 09/09/2016 SIGMOIDOSCOPY DIAGNOSTIC performed by Hermila Cornejo MD at ENDO/GI DE SIGMOIDOSCOPY FLX W/BIOPSY SINGLE/MULTIPLE 09/09/2016 SIGMOIDOSCOPY BIOPSY [...] and Respiratory Meds:acetaminophen Q4H PRN, alteplase PRN (Business Management Consultant from Rx) , amitriptyline/gabapentin/emu oil(#) Q8H PRN, benzonatate TID PRN, fentaNYL citrate PF Q2H PRN, magnesium sulfate 4 g/50 mL PRN, mineral oil/white petrolatum TID PRN, oxyCODONE Q4H PRN, potassium chloride PRN (Business Management Consultant from Rx) , prochlorperazine Q6H PRN OR [...] Hiwot Lau MD, MS Ophthalmology, PGY2 P [phone] [facility] [address] [place] [address] All documentation in bold italics represents Dr. [...] Wilde Admission Date: 04/30/2017 LOS: 2 days 4116/01 ASSESSMENT: Active Problems: Retinal edema right eye [...] you for this consult. Please page neurology education professional with any further questions or concerns. Neurology will sign off. Patient discussed with Dr. Pollard __ History of Present Illness: Donna Felicianomickie Wilde is a R handed 61 y.o. [...] at home and then waking up in [facility]. She is s/p fixation of left [...] performed by Shane Lynn MD at ENDO/GI DE ESOPHAGOGASTRODUODENOSCOPY TRANSORAL DIAGNOSTIC N/A 09/09/2016 ESOPHAGOGASTRODUODENOSCOPY performed by Hermila Cornejo MD at ENDO/GI DE PROPH TX N/P/PLTWR W/WO METHYLMETHACRYLATE FEMUR Left 04/19/2017 INSERTION CEPHALOMEDULLARY NAIL FEMUR performed by Shane Sam MD at Main OR/ Periop DE SIGMOIDOSCOPY FLX DX W/COLLJ SPEC BR/WA IF PFRMD N/A 04/14/2016 SIGMOIDOSCOPY DIAGNOSTIC performed by Shane Lynn MD at ENDO/GI DE SIGMOIDOSCOPY FLX DX W/COLLJ SPEC BR/WA IF PFRMD N/A 07/29/2016 SIGMOIDOSCOPY DIAGNOSTIC performed by Niharika Lam MD at ENDO/GI DE SIGMOIDOSCOPY FLX DX W/COLLJ SPEC BR/WA IF PFRMD N/A 09/09/2016 SIGMOIDOSCOPY DIAGNOSTIC performed by Hermila Cornejo MD at ENDO/GI DE SIGMOIDOSCOPY FLX W/BIOPSY SINGLE/MULTIPLE 09/09/2016 SIGMOIDOSCOPY BIOPSY [...] Blood-Glucose Meter misc One Touch Verio meter brimonidine (ALPHAGAN P) [...] under the skin at bedtime daily. Insulin Fawnskin (Disposable) 31 gauge x 1/4" ndle Use as needed for insulin administration lancets (ACCU-CHEK FASTCLIX) [facility] To check blood sugars before meals and [...] to hands and affected areas as needed suozftcs-dgemgojfk-ylywkrftntjfq (MAXITROL) 3.5 mg/g-10,000 unit/g-0.1 % ophthalmic ointment [...] at bedtime daily. 3 Package 3 Insulin Fawnskin (Disposable) 31 gauge x 1/4" ndle Use [...] to hands and affected areas as needed hhgaflxf-peszzbnzs-fiatutdsfvbrr (MAXITROL) 3.5 mg/g-10,000 unit/g-0.1 % ophthalmic ointment [...] 0551) POC Glucose (Download): (!) 107 (05/02/17 1631) Pertinent radiology reviewed. Lindsey Liang MD Neurology [...] May 03, 2017 Neurology/Movement Disorders Attending Pager [phone] * Evangelista Fernandez MD - 05/02/2017 9:12 [...] new weakness, sensory changes, nausea/vomiting, incontinence. Telephone academic success coordinator used for history. Elevator Constructor Helper ID [id number]. Past Medical History: Past Medical History: Diagnosis Date Cancer (HCC) DM2 (diabetes mellitus, type 2) (HCC) HLD (hyperlipidemia) HTN (hypertension) Leukemia (HCC) Overweight (BMI 25.0-29.9) Thyroid disorder Past Surgical History: Past Surgical History: Procedure Laterality Date SECTION, LOW TRANSVERSE COLONOSCOPY N/A 04/14/2016 COLONOSCOPY BIOPSY performed by Shane Lynn MD at ENDO/GI DE ESOPHAGOGASTRODUODENOSCOPY TRANSORAL DIAGNOSTIC N/A 09/09/2016 ESOPHAGOGASTRODUODENOSCOPY performed by Hermila Cornejo MD at ENDO/GI DE PROPH TX N/P/PLTWR W/WO METHYLMETHACRYLATE FEMUR Left 04/19/2017 INSERTION CEPHALOMEDULLARY NAIL FEMUR performed by Shane Sam MD at [facility] OR/ Periop DE SIGMOIDOSCOPY FLX DX W/COLLJ SPEC BR/WA IF PFRMD N/A 04/14/2016 SIGMOIDOSCOPY DIAGNOSTIC performed by Shane Lynn MD at ENDO/GI DE SIGMOIDOSCOPY FLX DX W/COLLJ SPEC BR/WA IF PFRMD N/A 07/29/2016 SIGMOIDOSCOPY DIAGNOSTIC performed by Niharika Lam MD at ENDO/GI DE SIGMOIDOSCOPY FLX DX W/COLLJ SPEC BR/WA IF PFRMD N/A 09/09/2016 SIGMOIDOSCOPY DIAGNOSTIC performed by Hermila Cornejo MD at ENDO/GI DE SIGMOIDOSCOPY FLX W/BIOPSY SINGLE/MULTIPLE 09/09/2016 SIGMOIDOSCOPY BIOPSY [...] patient's allergies indicates no known allergies. Medications: EMBOSSER OPERATOR: Prescriptions Prior to Admission Medication Sig acetaminophen [...] before meals and at bedtime. Blood-Glucose Meter [facility] One Touch Verio meter brimonidine (ALPHAGAN P) [...] under the skin at bedtime daily. Insulin Fawnskin (Disposable) 31 gauge x 1/4" ndle Use as needed for insulin administration lancets (ACCU-CHEK FASTCLIX) [facility] To check blood sugars before meals and [...] to hands and affected areas as needed lradanwd-eupnxabyv-iawhfkvivnzvc (MAXITROL) 3.5 mg/g-10,000 unit/g-0.1 % ophthalmic ointment [...] and Respiratory Meds:acetaminophen Q4H PRN, alteplase PRN (Business Management Consultant from Rx) , benzonatate TID PRN, magnesium sulfate 4 g/50 mL PRN, mineral oil/white petrolatum TID PRN, oxyCODONE Q4H PRN, potassium chloride PRN (Business Management Consultant from Rx) , prochlorperazine Q6H PRN OR [...] with Dr. Ish Fernandez MD Please call [phone] with questions. * Yao Estrada MD - [...] Hx GVHD Hx pancytopenia Recommendations: Differential for MANAGER STATE enhancing lesion in an immunocompromised patients is broad. Recommend workup for the following. Fungal: Histo / blasto / mucor / aspergillus Pyogenic abscess: (less likely given lymphocytic pleocytosis of previous CSF sample) MANAGER STATE lymphoma Toxopasmosis Atypical bacterial infection: Actinomyces / [...] - can help to evaluate for primary MANAGER STATE lymphoma as an etiology - CSF galactomannan [...] Agree with plan formulated above with Dr. oBswell. Dr. Boswell and Dr. Milian will assume [...] coli bacteremia and aspiration. She developed acute qxonc-pcsouw-kvhl disease and was on steroids for some [...] performed by Shane Lynn MD at ENDO/GI DE ESOPHAGOGASTRODUODENOSCOPY TRANSORAL DIAGNOSTIC N/A 09/09/2016 ESOPHAGOGASTRODUODENOSCOPY performed by Hermila Cornejo MD at ENDO/GI DE PROPH TX N/P/PLTWR W/WO METHYLMETHACRYLATE FEMUR Left 04/19/2017 INSERTION CEPHALOMEDULLARY NAIL FEMUR performed by Shane Sam MD at [facility] OR/ Periop DE SIGMOIDOSCOPY FLX DX W/COLLJ SPEC BR/WA IF PFRMD N/A 04/14/2016 SIGMOIDOSCOPY DIAGNOSTIC performed by Shane Lynn MD at ENDO/GI DE SIGMOIDOSCOPY FLX DX W/COLLJ SPEC BR/WA IF PFRMD N/A 07/29/2016 SIGMOIDOSCOPY DIAGNOSTIC performed by Niharika Lam MD at ENDO/GI DE SIGMOIDOSCOPY FLX DX W/COLLJ SPEC BR/WA IF PFRMD N/A 09/09/2016 SIGMOIDOSCOPY DIAGNOSTIC performed by Hermila Cornejo MD at ENDO/GI DE SIGMOIDOSCOPY FLX W/BIOPSY SINGLE/MULTIPLE 09/09/2016 SIGMOIDOSCOPY BIOPSY [...] and Respiratory Meds:acetaminophen Q4H PRN, alteplase PRN (Business Management Consultant from Rx) , benzonatate TID PRN, magnesium sulfate 4 g/50 mL PRN, mineral oil/white petrolatum TID PRN, oxyCODONE Q4H PRN, potassium chloride PRN (Business Management Consultant from Rx) , prochlorperazine Q6H PRN OR prochlorperazine Q6H PRN Physical Examination Vital Signs: Last Vital Signs: 24 Hour Range BP: 117/77 (05/01 1240) Temp: 36.7 C (98 F) (05/01 1240) Pulse: 81 (05/01 1240) Respirations: 18 PER MINUTE (05/01 124) SpO2: 97 % (05/01 124) O2 Delivery: None (Room Air) (05/01 124) [...] obvious enhancing lesions. Irma Boswell DO Pager [phone] Infectious Diseases Fellow, PGY4 in this encounter Miscellaneous Notes * Case Mgmt DC Plan - Alisa Mosqueda - 05/06/2017 12:12 PM CDT Case Management Progress Note NAME:Donna Wilde :1955 AGE: 61 y.o. ADMISSION DATE: 04/30/2017 DAYS ADMITTED: LOS: 6 days Todays Date: 05/06/2017 Plan Pt to dc home with [facility] services. Palliative SW to assist with [...] Other Name, Phone & Fax: [facility] [phone], fx [phone] ? [facility] Alisa Mosqueda LMSW [...] family support and HHC services from [facility] Interventions ? Support Support: Pt/Family Updates re:POC [...] agreeable to above -Discussed with son, [facility] will have RN visit pt on 05/08/17 and PT on 05/10 ? Info or Referral ? Discharge Planning Discharge Planning: Home Health -[facility] at , fx [phone] -Call to agency, spoke with Blank. Updated with dc to home today -Faxed signed orders -Will send AVS when available -The following was included on the AVS: [facility] . [facility] will have the nurse visit you on Wednesday, May 08 and the physical therapist on May 10. [facility] . [facility] quiana que la enfermera lo visite el sbado y el fisioterapeuta el es . ? Medication Needs Medication Needs: Co-Pay Check [...] Other Name, Phone & Fax: [facility] [phone], fx [phone] ? [facility] Kylie Thompson [employer]ICKER Nurse Cable Worker Helper Ext [phone], Pgr [phone] * Case Mgmt DC Plan - Kylie Thompson RN - 05/05/2017 3:55 PM CDT Formatting of this note may be different from the original. Case Management Progress Note NAME:Donna Wilde :1955 AGE: 61 y.o. ADMISSION DATE: 04/30/2017 DAYS ADMITTED: LOS: 5 days Todays Date: 05/05/2017 Plan: DC possibly Wednesday. Home with HHC if progresses toward goals Due to language barrier, an lead systems architect was present during BMT rounds and DC planning with this pt Elevator Constructor Helper mode: In person Elevator Constructor Helper/ ID Number: Juan Pablo Francois ? Support Support: Pt/Family Updates re:POC [...] necessary DME -Pt agreeable to using [facility] again for RN, PT, OT and will offer [facility] aide ? Info or Referral ? Discharge Planning Discharge Planning: Home Health -Via Jill at , fx [phone] -Call to agency, spoke with Blank. Discussed case. They will be able to admit pt Sat/Sun if dc on Wednesday -They do not have OT but can provide PT and RN visits. In the past, pt has declined [facility] aide -Faxed update and unsigned orders [...] Disposition ? Next Level Care Kylie Thompson [employer] P[employer]ER Nurse Cable Worker Helper Ext [phone], Pgr *[phone] * Care Coordination-Inpatient - Adolfo Solis MD [...] palliative care nurse in the past at [facility]. We will plan to touch base with the patient via a nursing visit in mid-May after results from follow-up imaging are received. Please do not hesitate to contact us with any further questions or needs. Adolfo Solis MD Hospice and Palliative Care, [phone] * Care Plan - Lindsay Tucker RN [...] vs other Due to language barrier, an lead systems architect was present during the history-taking and subsequent discussion (and for part of the physical exam) with this patient. Elevator Constructor Helper mode: In person Elevator Constructor Helper/ ID Number: Amairani Judith -Visit made with pt and -Also seen with team for rounds -Needing encouragement to improve oral intake, increase activity -PT and OT assisting Emergency Contact Extended Emergency Contact Information Primary Emergency Contact: Jocelynn Wilde [facility] Mobile Relation: Daughter Secondary Emergency Contact: Sejal Wilde [facility] Mobile Relation: Daughter DPOA Transportation Does the [...] health: In the past Agency name: [facility] Would patient use this agency again?: Yes ? HD or PD Undergoing hemodialysis or peritoneal dialysis: No ? Tube/Enteral Feeds Receive tube/enteral feeds: No ? Infusion Receive infusions: Yes Infusion company: [facility] Would patient use this agency again?: Yes ? Private Duty Private duty help used: No ? HCBS Home and community based services: No ? Cholo Huffman: N/A ? Hospice Hospice: No ? Outpatient Therapy PT: No OT: No ELECTRIC SEALING MACHINE OPERATOR: No ? SNF/NH ? IPR IPR: In the past When did patient receive care?: Transferred from [facility] here and Jul 2016 Name of Facility: [facility] Would patient return for future services?: Yes ? LTACH LTACH: No ? Acute Hospital Stay Acute Hospital Stay: Yes Was patient's stay within the last 30 days?: Yes Name of hospital: [facility] Psychosocial Needs ? Mental Health Mental Health [...] No Nurse Suspected Abuse?: No Kylie Thompson [employer] PICKER Nurse Cable Worker Helper Ext [phone], Pgr *[phone] * Anesthesia Post Op Day [...] and Respiratory Meds:acetaminophen Q4H PRN, alteplase PRN (Business Management Consultant from Rx) , amitriptyline/gabapentin/emu oil(#) Q8H PRN, benzonatate TID PRN, fentaNYL citrate PF Q2H PRN, magnesium sulfate 4 g/50 mL PRN, mineral oil/white petrolatum TID PRN, oxyCODONE Q4H PRN, potassium chloride PRN (Business Management Consultant from [facility]) , prochlorperazine Q6H PRN OR [...] alternatives of the procedure were discussed. An lead systems architect was used. Informed consent was obtained. The [...] Sinus SURGICAL PATHOLOGY Kandice Montelongo MD 05/03/2017 1453 2 : Left Maxillary Sinus Tissue Sinus SURGICAL PATHOLOGY Kandice Montelongo MD 05/03/2017 1503 A : 1. Left Maxillary sinus Tissue Sinus CULTURE-ANAEROBIC, CULTURE-WOUND/ TISSUE/FLUID(AEROBIC ONLY)W/SENSITIVITY, CULTURE-TB (AFB), GRAM STAIN, CULTURE- FUNGAL,OTHER Kandice Montelongo MD 05/03/2017 1453 B : 2. Left Maxillary Sinus Tissue Sinus CULTURE-ANAEROBIC, CULTURE-WOUND/TISSUE /FLUID(AEROBIC ONLY)W/SENSITIVITY, CULTURE-TB (AFB), GRAM STAIN, CULTURE-FUNGAL, OTHER Kandice Montelongo MD 05/03/2017 1508 Complications: None Implants: None Drains: None Disposition: PACU - stable Attestation: Dr. Montelongo was present for the entirety of the case. Shane Briones MD Pager [phone] Hematoma with organized clot * Procedures (Immed [...] Sinus SURGICAL PATHOLOGY Kandice Montelongo MD 05/03/2017 1453 2 : Left Maxillary Sinus Tissue Sinus SURGICAL PATHOLOGY Kandice Montelongo MD 05/03/2017 1503 A : 1. Left Maxillary sinus Tissue Sinus CULTURE-ANAEROBIC, CULTURE-WOUND/ TISSUE/FLUID(AEROBIC ONLY)W/SENSITIVITY, CULTURE-TB (AFB), GRAM STAIN, CULTURE- FUNGAL,OTHER Kandice Montelongo MD 05/03/2017 1453 B : 2. Left Maxillary Sinus Tissue Sinus CULTURE-ANAEROBIC, CULTURE-WOUND/TISSUE /FLUID(AEROBIC ONLY)W/SENSITIVITY, CULTURE-TB (AFB), GRAM STAIN, CULTURE-FUNGAL, OTHER Kandice Montelongo MD 05/03/2017 1508 Complications: None Implants: None Drains: None Disposition: PACU - stable Shane Briones MD Pager [phone] * Case Mgmt DC Plan - [place] [...] in room with BMT team during rounds. Elevator Constructor Helper present during rounds. Pt reports that she [...] Post-Procedure Condition: stable Seth Loza MD Pager [phone] * Care Plan - Aaliyah Yang RN [...] Status FINAL 05/06/2017 Specimen Performing Laboratory Feces [facility] MAIN LAB [address] [place] [address] * POC GLUCOSE (05/06/2017 12:08 PM) Component Value Ref Range Glucose, POC 151 (H) 70 - 100 MG/DL Specimen Performing Laboratory MAIN LAB [address] [place] [address] * POC GLUCOSE (05/06/2017 8:35 AM) Component Value Ref Range Glucose, POC 125 (H) 70 - 100 MG/DL Specimen Performing Laboratory MAIN LAB [address] [place] [address] * BASIC METABOLIC PANEL (05/06/2017 5:17 AM) [...] Specimen Performing Laboratory Blood MAIN LAB [address] [place] [address] * CBC AND DIFF (05/06/2017 5:17 AM) [...] K/UL Specimen Performing Laboratory Blood MAIN LAB [address] [place], [place] [id number] * MAGNESIUM (05/06/2017 5:17 AM) Component Value Ref Range Magnesium 2.1 1.6 - 2.6 mg/dL Specimen Performing Laboratory Blood [facility] [address] [place], [place] [id number] * POC GLUCOSE (05/05/2017 9:23 PM) Component Value Ref Range Glucose, POC 149 (H) 70 - 100 MG/DL Specimen Performing Laboratory [facility] [address] [place], [place] [id number] * POC GLUCOSE (05/05/2017 5:28 PM) Component Value Ref Range Glucose, POC 128 (H) 70 - 100 MG/DL Specimen Performing Laboratory [facility] [address] [place], [place] [id number] * POC GLUCOSE (05/05/2017 8:03 AM) Component Value Ref Range Glucose, POC 151 (H) 70 - 100 MG/DL Specimen Performing Laboratory [facility] [address] [place] [address] * BASIC METABOLIC PANEL (05/05/2017 4:31 AM) [...] questions. Specimen Performing Laboratory Blood MAIN LAB [address] [place] [address] * CBC AND DIFF (05/05/2017 4:31 AM) [...] K/UL Specimen Performing Laboratory Blood MAIN LAB [address] [place] [address] * MAGNESIUM (05/05/2017 4:31 AM) Component Value Ref Range Magnesium 1.5 (L) 1.6 - 2.6 mg/dL Specimen Performing Laboratory Blood MAIN LAB [address] [place] [address] * POC GLUCOSE (05/04/2017 9:26 PM) Component Value Ref Range Glucose, POC 150 (H) 70 - 100 MG/DL Specimen Performing Laboratory MAIN LAB [address] [place] [address] * POC GLUCOSE (05/04/2017 5:46 PM) Component Value Ref Range Glucose, POC 215 (H) 70 - 100 MG/DL Specimen Performing Laboratory MAIN LAB [address] [place] [address] * POC GLUCOSE (05/04/2017 3:02 PM) Component Value Ref Range Glucose, POC 139 (H) 70 - 100 MG/DL Specimen Performing Laboratory MAIN LAB [address] [place] [address] * PHOSPHORUS (05/04/2017 6:46 AM) Component Value Ref Range Phosphorus 3.9 2.0 - 4.0 MG/DL Specimen Performing Laboratory Blood MAIN LAB [address] [place] [address] * COMPREHENSIVE METABOLIC PANEL (05/04/2017 6:46 AM) [...] Specimen Performing Laboratory Blood MAIN LAB [address] [place] [address] * CBC AND DIFF (05/04/2017 6:46 AM) [...] K/UL Specimen Performing Laboratory Blood MAIN LAB [address] [place] [address] * MAGNESIUM (05/04/2017 6:46 AM) Component Value Ref Range Magnesium 2.2 1.6 - 2.6 mg/dL Specimen Performing Laboratory Blood [facility] [address] [place], [place] [phone] * POC GLUCOSE (05/03/2017 9:26 PM) Component Value Ref Range Glucose, POC 277 (H) 70 - 100 MG/DL Specimen Performing Laboratory [facility] [address] [place], [place] [phone] * POC GLUCOSE (05/03/2017 7:01 PM) Component Value Ref Range Glucose, POC 173 (H) 70 - 100 MG/DL Specimen Performing Laboratory [facility] [address] [place], [place] [phone] * POC GLUCOSE (05/03/2017 4:14 PM) Component Value Ref Range Glucose, POC 99 70 - 100 MG/DL Specimen Performing Laboratory [facility] [address] [place] [address] * SURGICAL PATHOLOGY (05/03/2017 3:13 PM) Component Value Ref Range PATHOLOGY REPORT [facility] [email or web address] Tricia Jerry MD, PhD, Director of Anatomic Pathology Department of Pathology and Laboratory Medicine [address] [place] [phone] Surgical Pathology Office: [phone] SURGICAL PATHOLOGY REPORT NAME: DONNA MENDOZA SURG PATH #: [id number] MR #: [id number] SPECIMEN CLASS: SR BILLING #: [id number] ALT ID #: LOCATION: DISCHARGED DATE OF [...] report will be submitted. Pursuant to the [employer] Program at the [facility] Pathology Department, selected slides from this case [...] report. +++ +++ Steve Agee MD Resident [facility]/05/03/2017 ################################################## ###################### Material Received: A: left maxillary [...] specimen is submitted entirely in cassette B1. ([facility]) [facility]/05/03/2017 Intraoperative Consultation: [id number], respiratory mucosa, "left maxillary sinus", biopsy: Organized hematoma negative for malignancy, no fungus on frozen, fungal stains on permanent will be performed. Natasha Lisa MD If immunohistochemical stains and/or in situ hybridization are cited in this report, the performance characteristics were determined by the Department of Pathology and Laboratory Medicine of the [facility] ([employer]) in compliance with [...] of Pathology and Laboratory Medicine of the [facility]. It has not been cleared or [...] 06/21/2017 Specimen Performing Laboratory Tissue MAIN LAB [address] [place] [address] * CULTURE-FUNGAL,OTHER (05/03/2017 3:08 PM) Component Value Ref Range Battery Name FUNGUS CULTURE Specimen Description TISSUE LEFT MAXILLARY SINUS Special Requests NONE Culture NO GROWTH OF FUNGUS AT 4 WEEKS Report Status FINAL 06/07/2017 Specimen Performing Laboratory Tissue - Sinus MAIN LAB [address] [place] [address] * GRAM STAIN (05/03/2017 3:08 PM) Component Value Ref Range Battery Name GRAM STAIN Specimen Description TISSUE LEFT MAXILLARY SINUS Special Requests NONE Gram Stain NO NEUTROPHILS SEEN FEW COLUMNAR EPITHELIAL CELLS NO ORGANISMS SEEN Report Status FINAL 05/03/2017 Specimen Performing Laboratory Tissue - Sinus MAIN LAB [address] [place] [address] * CULTURE-WOUND/TISSUE/FLUID(AEROBIC ONLY)W/SENSITIVITY (05/03/2017 3:08 PM) Component Value Ref Range Battery Name ROUTINE CULTURE Specimen Description TISSUE LEFT MAXILLARY SINUS Special Requests NONE Direct Gram Stain NO NEUTROPHILS SEEN FEW COLUMNAR EPITHELIAL CELLS NO ORGANISMS SEEN Culture CO2 DEPENDENT STREPTOCOCCUS isolated from broth only STAPHYLOCOCCUS, COAGULASE NEGATIVE isolated from broth only Report Status FINAL 05/08/2017 Specimen Performing Laboratory Tissue - Sinus MAIN LAB [address] [place] [address] * CULTURE-ANAEROBIC (05/03/2017 3:08 PM) Component Value Ref Range Battery Name ANAEROBE CULTURE Specimen Description TISSUE LEFT MAXILLARY SINUS Special Requests NONE Culture NO ANAEROBES ISOLATED Report Status FINAL 05/08/2017 Specimen Performing Laboratory Tissue - Sinus MAIN LAB [address] [place] [address] * CULTURE-FUNGAL,OTHER (05/03/2017 2:53 PM) Component Value Ref Range Battery Name FUNGUS CULTURE Specimen Description FLOCKED SWAB LEFT MAXILLARY SINUS Special Requests NONE Culture NO GROWTH OF FUNGUS AT 4 WEEKS Report Status FINAL 06/07/2017 Specimen Performing Laboratory Tissue - Sinus MAIN LAB [address] [place] [address] * GRAM STAIN (05/03/2017 2:53 PM) Component Value Ref Range Battery Name GRAM STAIN Specimen Description FLOCKED SWAB LEFT MAXILLARY SINUS Special Requests NONE Gram Stain NO NEUTROPHILS SEEN NO ORGANISMS SEEN Report Status FINAL 05/03/2017 Specimen Performing Laboratory Tissue - Sinus MAIN LAB [address] [place], [place] [id number] * CULTURE-WOUND/TISSUE/FLUID(AEROBIC ONLY)W/SENSITIVITY (05/03/2017 2:53 PM) Component Value Ref Range Battery Name ROUTINE CULTURE Specimen Description FLOCKED SWAB LEFT MAXILLARY SINUS Special Requests NONE Direct Gram Stain NO NEUTROPHILS SEEN NO ORGANISMS SEEN Culture 9 colonies STAPHYLOCOCCUS, COAGULASE NEGATIVE Report Status FINAL 05/08/2017 Specimen Performing Laboratory Tissue - Sinus MAIN LAB [address] [place] [address] * CULTURE-ANAEROBIC (05/03/2017 2:53 PM) Component Value Ref Range Battery Name ANAEROBE CULTURE Specimen Description FLOCKED SWAB LEFT MAXILLARY SINUS Special Requests NONE Culture NO ANAEROBES ISOLATED Report Status FINAL 05/08/2017 Specimen Performing Laboratory Tissue - Sinus MAIN LAB [address] [place] [address] * POC GLUCOSE (05/03/2017 12:38 PM) Component Value Ref Range Glucose, POC 79 70 - 100 MG/DL Specimen Performing Laboratory MAIN LAB [address] [place] [address] * TYPE & CROSSMATCH (05/03/2017 11:55 AM) Component Value Ref Range Units Ordered 2 Crossmatch Expires 05/06/2017 Record Check FOUND ABO/RH(D) O POS Antibody Screen NEG Patient has a history of a clinically significant antibody. Unit Number [id number] Blood Component Type RBC,ADSOL,LEUKO REDUCED,IRRADIATED,1ST CONT. Unit Division 0 Status OF Unit REL FROM ALLOC Transfusion Status OK TO TRANSFUSE Crossmatch Result COMPATIBLE, GEL Antigen Type (Units) Jk(a) antigen NEG, Unit Number [id number] Blood Component Type RBC,ADSOL,LEUKO REDUCED,IRRADIATED Unit Division 0 Status OF Unit REL FROM ALLOC Transfusion Status OK TO TRANSFUSE Crossmatch Result COMPATIBLE, GEL Antigen Type (Units) Jk(a) antigen NEG, Unit Number [id number] Blood Component Type RBC,ADSOL,LEUKO REDUCED,IRRADIATED Unit Division 0 Status OF Unit REL FROM ALLOC Transfusion Status DO NOT ISSUE FOR TRANSFUSION Crossmatch Result NOT DONE Antigen Type (Units) Jk(a) antigen POS, Unit Number [id number] Blood Component Type RBC,ADSOL,LEUKO REDUCED,IRRADIATED Unit Division 0 Status OF Unit REL FROM ALLOC Transfusion Status DO NOT ISSUE FOR TRANSFUSION Crossmatch Result NOT DONE Antigen Type (Units) Jk(a) antigen POS, Unit Number [id number] Blood Component Type RBC,ADSOL,LEUKO REDUCED,IRRADIATED Unit Division 0 Status OF Unit REL FROM ALLOC Transfusion Status DO NOT ISSUE FOR TRANSFUSION Crossmatch Result NOT DONE Antigen Type (Units) Jk(a) antigen POS, Unit Number [id number] Blood Component Type RBC,ADSOL,LEUKO REDUCED,IRRADIATED Unit Division 0 Status OF Unit REL FROM ALLOC Transfusion Status DO NOT ISSUE FOR TRANSFUSION Crossmatch Result NOT DONE Antigen Type (Units) Jk(a) antigen POS, Unit Number [id number] Blood Component Type RBC,ADSOL,LEUKO REDUCED,IRRADIATED Unit Division 0 Status OF Unit REL FROM ALLOC Transfusion Status DO NOT ISSUE FOR TRANSFUSION Crossmatch Result NOT DONE Antigen Type (Units) Jk(a) antigen POS, Unit Number [id number] Blood Component Type RBC,ADSOL,LEUKO REDUCED,IRRADIATED Unit Division 0 Status OF Unit REL FROM ALLOC Transfusion Status DO NOT ISSUE FOR TRANSFUSION Crossmatch Result NOT DONE Antigen Type (Units) Jk(a) antigen POS, Specimen Performing Laboratory Blood MAIN LAB [address] [place] [address] * POC GLUCOSE (05/03/2017 9:41 AM) Component Value Ref Range Glucose, POC 79 70 - 100 MG/DL Specimen Performing Laboratory MAIN LAB [address] [place] [address] * PROTIME INR (PT) (05/03/2017 9:24 AM) Component Value Ref Range INR 1.0 0.8 - 1.2 Specimen Performing Laboratory Blood MAIN LAB [address] [place] [address] * PTT (APTT) (05/03/2017 9:24 AM) Component Value Ref Range APTT 28.7 24.0 - 40.0 SEC Specimen Performing Laboratory Blood [facility] MAIN LAB [address] [place] [address] * IR LUMBAR PUNCTURE (05/03/2017 8:37 AM) [...] cerebellar lesion, concern for leukemia versus infection LINING FELLER: Janny tSubbs MD Total fluoroscopy dose: 4 mGy. Medications: [...] cerebellar lesion, concern for leukemia versus infection LINING FELLER: Jericho Loza M.D. and DARIEL ESPOSITO MD [...] Component Value Ref Range PATHOLOGY REPORT [facility] [email or web address] Sophia Yip MD, Director of Clinical Laboratory Karthikeyan Jordan MD, Director of Flow Cytometry Laboratory Department of Pathology and Laboratory Medicine [address] [place] [phone] Surgical Pathology Office: [phone] FLOW CYTOMETRY REPORT NAME: DONNA MENDOZA SURG PATH #: [id number] MR #: [id number] SPECIMEN CLASS: LC BILLING #: [id number] ALT ID #: LOCATION: 41 DATE OF [...] in this report. +++Electronically Signed Out By+++ ching/05/03/2017 Interpreted by: MD Caden Atkins MD Resident 05/04/2017 ################################################## ###################### Lab Data: Flow Cytometry - Acute Myeloid Leukemia Screen Myeloid Associated Markers (% Positive Cells): SB53g=1; CD13=13; CD33=25; IO135=7 Miscellaneous Markers (% Positive Cells): CD34=0; IT86=139; HLA-Dr=0 Cell Viability (%): QNS Number of Cells Analyzed: 1564 Total Number of Markers: 7 Summary of Marker Combinations: 34/117/33/13/11b/45/38/Dr This test was developed and its performance characteristics determined by the [facility] Flow Cytometry Laboratory. It has not [...] Specimen Performing Laboratory Cerebrospinal Fluid MAIN LAB [address] [place] [address] * CULTURE-TB (AFB) (05/03/2017 8:29 AM) Component Value Ref Range Battery Name AFB CULTURE Specimen Description CSF Special Requests NONE Culture NO GROWTH OF MYCOBACTERIA AT 6 WEEKS Report Status FINAL 06/21/2017 Specimen Performing Laboratory Cerebrospinal Fluid MAIN LAB [address] [place] [address] * CSF TUBE VOLUMES (05/03/2017 8:29 AM) Component Value Ref Range CSF Tube 1 3.0 mL CSF Tube 2 3.0 mL CSF Tube 3 3.0 mL CSF Tube 4 3.0 mL Specimen Performing Laboratory [facility] LAB RESULTS * LEUKEMIA/LYMPHOMA PANEL FLUID/TISSUE (05/03/2017 8:29 AM) Component Value Ref Range Leuk/Lymph Interpretation SEE PATHOLOGY REPORT Specimen/LLM CSF Specimen Performing Laboratory Cerebrospinal fluid - [facility] Cerebrospinal Fluid [address] [place] [address] * CULTURE-FUNGAL,CSF (05/03/2017 8:29 AM) Component Value Ref Range Battery Name CSF FUNGUS CULTURE Specimen Description CSF Special Requests NONE Culture NO GROWTH OF FUNGUS AT 4 WEEKS Report Status FINAL 06/07/2017 Specimen Performing Laboratory Cerebrospinal fluid - [facility] Cerebrospinal Fluid [address] [place] [address] * CULTURE-CSF W/SENSITIVITY (05/03/2017 8:29 AM) Component Value Ref Range Battery Name CSF CULTURE Specimen Description CSF Special Requests NONE Direct Gram Stain RARE NEUTROPHILS MODERATE RBC'S NO ORGANISMS SEEN Culture NO GROWTH 3 DAYS Report Status FINAL 05/06/2017 Specimen Performing Laboratory Cerebrospinal fluid - [facility] Cerebrospinal Fluid [address] [place], [place] [id number] * CELL COUNT W/DIFF-CSF (05/03/2017 8:29 AM) [...] Cerebrospinal fluid - MAIN LAB Cerebrospinal Fluid [address] [place] [address] * TOTAL PROTEIN-CSF (05/03/2017 8:29 AM) Component Value Ref Range Total Protein,CSF 52 (H) 15 - 45 MG/DL Specimen Performing Laboratory Cerebrospinal fluid - [facility] Cerebrospinal Fluid [address] [place] [address] * GLUCOSE-CSF (05/03/2017 8:29 AM) Component Value Ref Range Glucose,CSF 58 40 - 75 MG/DL Xanthrochromia,CSF SMALL BLOOD PRESENT Specimen Performing Laboratory Cerebrospinal fluid - [facility] Cerebrospinal Fluid [address] [place] [address] * HISTOPLASMA-CSF (05/03/2017 8:29 AM) Component Value Ref Range Histoplasma Mycelial Negative TITER (CSF) Comment: Reference range: Negative Unit: not reported [facility], [address] [place] [address] Histoplasma Yeast (CSF) Negative Reference range: Negative [address] [address] Histoplasma Negative Immunodiffusion (CSF) Reference range: Negative A negative complement fixation and immunodiffusion (CF/ID) result does not exclude the diagnosis of histoplasmosis. [facility], [address] [place] [address] Specimen Performing Laboratory Cerebrospinal fluid - REFERENCE LAB Cerebrospinal Fluid * NON-MILK TREATER CYTOLOGY (BODY FLUIDS/TISSUE) (05/03/2017 8:27 AM) Component Value Ref Range Cytology [facility] [email or web address] Tricia Jerry MD, Director Cytopathology Department of Pathology and Laboratory Medicine [address] [place] [phone] Surgical Pathology Office: [phone] CYTOLOGY REPORT NAME: DONNA MENDOZA CYTOLOGY #: [id number] MR #: [id number] ALT ID #: BILLING #: [id number] LOCATION: 41 DATE OF PROCEDURE: 05/03/2017 AGE: 61 SEX: F DATE RECEIVED: 05/04/2017 : 1955 TIME RECEIVED: 08:27 PHYSICIAN: VIPIN CASTELLANO DATE OF REPORT: 05/06/2017 COPY TO: JUAN DANIELJONNYMayteEDWARD DATE OF PRINTIN05/06/2017 Material Received: A: Cerebrospinal Fluid History: 61 year old female with 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 Gross Description: (1tp) 1.75 mL clear light yellow fluid. ################################################## ###################### Final Diagnosis: A. Cerebrospinal Fluid: Mild lymphocytosis. Negative for malignant cells. Please also see concurrent flow cytometry report ([id number]), which demonstrates an negative immunophenotypic study. Attestation: [...] Specimen Performing Laboratory Blood MAIN LAB [address] [place] [address] * CBC AND DIFF (05/03/2017 5:13 AM) [...] K/UL Specimen Performing Laboratory Blood MAIN LAB [address] [place] [address] * MAGNESIUM (05/03/2017 5:13 AM) Component Value Ref Range Magnesium 1.6 1.6 - 2.6 mg/dL Specimen Performing Laboratory Blood MAIN LAB [address] [place] [address] * CULTURE-FUNGAL,BLOOD W/SENSITIVITY (05/03/2017 5:10 AM) Component Value Ref Range Battery Name FUNGUS BLOOD CULTURE Specimen Description BLOOD LEFT ANTECUBITAL Special Requests NONE Culture NO GROWTH OF FUNGUS AT 4 WEEKS Report Status FINAL 06/07/2017 Specimen Performing Laboratory Blood MAIN LAB [address] [place] [address] * T SPOT TB (05/03/2017 5:10 AM) Component Value Ref Range T Spot TB Negative The test result is Negative because the spot count in (Panel A minus Nil Control) and (Panel B minus Nil Control) is less than or equal to 4. This includes values less than zero.[id number]: Diagnosing or excluding tuberculosis disease, and assessing [...] 100 MG/DL Specimen Performing Laboratory MAIN LAB [address] [place] [address] * CULTURE-BLOOD W/SENSITIVITY (05/02/2017 5:00 PM) Component Value Ref Range Battery Name BLOOD CULTURE Specimen Description BLOOD LEFT FA Special Requests NONE Culture NO GROWTH 5 DAYS Report Status FINAL 05/08/2017 Specimen Performing Laboratory Blood MAIN LAB [address] [place] [address] * POC GLUCOSE (05/02/2017 9:34 AM) Component Value Ref Range Glucose, POC 107 (H) 70 - 100 MG/DL Specimen Performing Laboratory MAIN LAB [address] [place] [address] * BASIC METABOLIC PANEL (05/02/2017 5:51 AM) [...] Specimen Performing Laboratory Blood MAIN LAB [address] [place] [address] * CBC AND DIFF (05/02/2017 5:51 AM) [...] Specimen Performing Laboratory Blood MAIN LAB [address] [place] [address] * MAGNESIUM (05/02/2017 5:51 AM) Component Value Ref Range Magnesium 2.3 1.6 - 2.6 mg/dL Specimen Performing Laboratory Blood MAIN LAB [address] [place] [id number] * POC GLUCOSE (05/01/2017 9:37 PM) Component Value Ref Range Glucose, POC 155 (H) 70 - 100 MG/DL Specimen Performing Laboratory [facility] [address] [place] [id number] * POC GLUCOSE (05/01/2017 6:54 PM) Component Value Ref Range Glucose, POC 152 (H) 70 - 100 MG/DL Specimen Performing Laboratory [facility] [address] [place] [address] * POC GLUCOSE (05/01/2017 5:19 PM) Component Value Ref Range Glucose, POC 138 (H) 70 - 100 MG/DL Specimen Performing Laboratory [facility] [address] [place] [id number] * TOXOPLASMA IGG (05/01/2017 4:12 PM) Component Value Ref Range Toxoplasma IgG POS Specimen Performing Laboratory [address] [address] * CRYPTOCOCCUS ANTIGEN (05/01/2017 4:12 PM) Component Value Ref Range Cryptococcal AG Screen NEG NEG-NEG Specimen Performing Laboratory Blood [address] [address] * HISTOPLASMA AG, SERUM (05/01/2017 4:12 PM) [...] developed and its performance characteristics determined by [facility]. It has not been cleared or approved by the FDA; however, FDA clearance or approval is not currently required for clinical use. The results are not intended to be used as the sole means for clinical diagnosis or patient management decisions. Test Performed by: [facility] [id number] [place] [place] [address] Specimen Performing Laboratory [facility]FERENCE [facility] * FUNGITELL (05/01/2017 4:12 PM) Component Value Ref Range Fungitell <31 Reference range: <80 Unit: pg/mL Interpretation: The Fungitell assay does not detect certain fungal species such as the genus Cryptococcus (Lidia et al. 1991) which produces very low levels of (1-3)-Vjnn-Y-Trgdwu. The assay also does not detect the Zygomycetes such as Absidia, Mucor and Rhizopus (Hilary et al. 1994) which are not known to produce (1-3)-Ulyx-N-Ftymyi. In addition, the yeast phase of Blastomyces dermatitidis produces little (1-3)-Auzp-V-Kdbrhm and may not be detected by the [...] characteristics for these modifications were determined by [facility]. If sample result is greater than 500 pg/mL, physician may order a titer of the sample. Please contact [facility] if you would like to order a retest of this sample to obtain an actual value. Samples are held for 1 week after initial testing date. Testing Performed At: [facility] [address] [place] [address] [address] [place] [id number] CLIA ID: [id number] Specimen Performing Laboratory [facility]FER[facility] * [...] Aspergillus Galactomannan EIA is a product of [employer] and is FDA approved for in vitro diagnostic use. Testing Performed At: [facility] [address] [place] [address] CLIA ID: [id number] Specimen Performing Laboratory [facility] * [...] Specimen Performing Laboratory [facility] [address] [place] [address] * CBC AND DIFF (05/01/2017 6:13 AM) [...] Specimen Performing Laboratory [facility] [address] [place] [address] * MAGNESIUM (05/01/2017 6:13 AM) Component Value Ref Range Magnesium 1.7 1.6 - 2.6 mg/dL Specimen Performing Laboratory [facility] [address] [place] [address] * VRE SCREEN (04/30/2017 9:00 PM) Component Value Ref Range Battery Name VRE SCREEN Specimen Description PERIRECTAL SWAB Special Requests NONE Culture VRE ISOLATED Complete susceptibility testing is not performed on surveillance culture. Positive cultures indicate carrier status and do not by themselves indicate a need for treatment. Report Status FINAL 05/03/2017 Specimen Performing Laboratory Perirect[facility] [address] [place] [address] in this encounter Visit Diagnoses Diagnosis Nasal cavity mass Swelling, mass, or lump in head and neck in this encounter Admitting Diagnoses Diagnosis myeloproliferative neoplasms Brain mass Nasal cavity mass Swelling, mass, or lump in head and neck in this encounter Administered Medications Medication Order MAR Action Action Date Dose Rate Site EPINEPHrine (ADRENALIN) injection Given 05/03/2017 2 mg INTRA-PROCEDURE MED, Starting Mon 14:48 CDT 05/03/17 at 1448, Until Wed05/03/17 at 1734, Intra-op lidocaine 1%/EPINEPHrine 1:100,000 Given 05/03/2017 8 mL Other injection 14:51 CDT INTRA-PROCEDURE MED, Starting 05/03/17 at 1451, Until Wed05/03/17 at 1734, Intra-op oxymetazoline (AFRIN) 0.05 % nasal spray Given 05/03/2017 3 sprays Other INTRA-PROCEDURE MED, Starting Mon 14:52 CDT 05/03/17 at 1452, Until Wed05/03/17 at 1734, Intra-op thrombin 5,000 unit topical solution Given 05/03/2017 5,000 Units Other INTRA-PROCEDURE MED, Starting Mon 14:52 CDT 05/03/17 at 1452, Until 05/03/17 at 1734, Intra-op in this encounter
--- OUTSIDE RECORDS SUMMARY | 2017-07-30 04:08 | XMS REPORT | Encounter Summary ---
Author Author [facility] Address Unknown Phone Unavailable Care Team Providers Care Pay Per Click Strategist Name Role Phone PCP Unavailable Encounter Details Date Type Department Care Team Description 05/01/2017 Procedure Pass [address] [place] [address] Social History Tobacco Use Types Packs/Day Years [...]
--- OUTSIDE RECORDS SUMMARY | 2017-07-30 04:08 | XMS REPORT | Encounter Summary ---
Author Author [facility] Organization [facility] Address Unknown Phone Unavailable Care Team Providers Care Meteorology Instructor Name Role Phone PCP Unavailable Encounter Details Date Type Department Care Team Description 05/01/2017 Procedure Pass [address] [place] [address] Social History Tobacco Use Types Packs/Day Years [...]
--- OUTSIDE RECORDS SUMMARY | 2017-07-30 04:08 | XMS REPORT | Encounter Summary ---
Author Author [facility] Organization [facility] Address Unknown Phone Unavailable Care Team Providers Care [employer] Agent Name Role Phone PCP Unavailable Encounter Details Date Type Department Care Team Description 05/01/2017 Procedure Pass [address] [place] [address] Social History Tobacco Use Types Packs/Day Years [...]
--- OUTSIDE RECORDS SUMMARY | 2017-07-30 04:09 | XMS REPORT | Encounter Summary ---
Author Author [facility] Organization [facility] Address Unknown Phone Unavailable Care Team Providers Care Fourth Hand Name Role Phone PCP Unavailable Reason for Visit * Auth/Cert Status Reason Specialty Diagnoses / Referred By Referred To Procedures Contact Contact Diagnoses TBI SAH (subarachnoid hemorrhage) ([facility]) Encounter Details Date Type Department Care Team Description 04/27/2017 Hospital ACUTE REHAB UNIT Ramirez Myers MD Subarachnoid hemorrhage - Encounter [address] following injury, with 04/30/2017 [place] [address] [place] [address] loss of consciousness [phone] ([facility]) Social History Tobacco Use Types Packs/Day Years Used Date Never Smoker Smokeless Tobacco: Never Used Alcohol Use Drinks/Week oz/Week Comments No 0 Standard 0.0 drinks or equivalent Sex Assigned at Date Recorded Not on file as of this encounter Last Filed Vital Signs Vital Sign Reading Time Taken Blood Pressure 128/57 04/30/2017 3:35 PM CDT Pulse 79 04/30/2017 3:35 PM CDT Temperature 36.9 C (98.4 F) 04/30/2017 3:35 PM CDT Respiratory Rate - - Oxygen Saturation 98% 04/30/2017 3:35 PM CDT Inhaled Oxygen - - Concentration Weight 59.8 kg (131 lb 14.4 oz) 04/27/2017 3:00 PM CDT Height 162.6 cm (5' 4") 04/27/2017 3:00 PM CDT Body Mass Index 22.64 04/27/2017 3:00 PM CDT in this encounter Functional Status [...] impairment: No 04/27/2017 as of this encounter Discharge Summaries * Ramirez Myers MD - 04/30/2017 4:55 PM CDT Formatting of this note may be different from the original. ATTESTATION: I have reviewed the discharge summary and agree with the resident's documentation. Her Brain MRI results were discussed with radiology and neurology teams on the date of discharge. She was found to have enhancing nodular lesion in the right cerebellum with additional smaller lesions and vasogenic edema. Results also communicated to BMT team who plans to re-admit patient to acute care for further work-up and management. The patient was seen on the date of discharge. Staff name: Ramirez Myers MD Physician Discharge Summary Name: Donna Wilde Date Of : 1955 Age: 61 years Admit date: 04/27/2017 Discharge date: 04/30/2017 Attending Physician: Service: Rehab Medicine Physician Summary completed by: Damion Green DO Reason for hospitalization: SAH Significant PMH: Past Medical History: Diagnosis Date Cancer (HCC) DM2 (diabetes mellitus, type 2) (HCC) HLD (hyperlipidemia) HTN (hypertension) Leukemia (HCC) Overweight (BMI 25.0-29.9) Thyroid disorder Allergies: Review of patient's allergies indicates no known allergies. Admission Physical Exam notable for: Gen: Sleepy, NAD HEENT: Diffuse ecchymosis to L side of face, no vision left eye CV: well perfused, distal pulses intact Pulm: breathing unlabored, normal effort Abd: nondistended Extremities: No edema. Skin: no obvious rashes or lesions on exposed surfaces Psych: Appropriate mood, normal affect Neuro/MSK: MS: Root Right Left Shoulder Abduction C5 5 5 Elbow Flexion C5 5 5 Elbow Extension C7 5 5 Wrist Extension C6 5 5 Finger Flexion C8 5 5 Finger Abduction T1 5 5 Hip Flexion L2 4+ NT* Knee Flexion L5/S1 4+ NT* Knee Extension L3 5 NT* Dorsiflexion L4 5 5 Plantarflexion S1 5 5 EHL Extension L5 5 5 *secondary to pain Neuro: Cranial Nerves CN's 3,4, and 6 normal. Normal tongue protrusion and symmetric smile. DTR's 2+ throughout Babinski Plantar Reflex is Downgoing Bilaterally Reza Normal Finger to Nose Patient had difficulty following directions to complete testing Heel to Graham Normal Upper Extremity Tone Normal Lower Extremity Tone Normal Upper Extremity Sensation Intact to light touch bilaterally Lower Extremity Sensation Intact to light touch bilaterally Clonus Negative Bilaterally Proprioception Intact Bilaterally Memory/Cognition/Speech Oriented to person, place, year/month but not day; speech fluent and clear Admission Lab/Radiology studies notable for: WHITE BLOOD CELLS 4.3* 04/27/2017 04:43 AM RBC 2.01* 04/27/2017 04:43 AM HEMOGLOBIN 7.3* 04/27/2017 04:43 AM HEMATOCRIT 20.5* 04/27/2017 04:43 AM MCV 101.8* 04/27/2017 04:43 AM MCH 36.1* 04/27/2017 04:43 AM RDW 18.6* 04/27/2017 04:43 AM PLATELET COUNT 53* 04/27/2017 04:43 AM MPV 7.6 04/27/2017 04:43 AM Lab Results Component Value Date/Time NEUTROPHILS 50 04/22/2017 04:41 AM ABSOLUTE NEUTROPHIL COUNT 1.90 04/22/2017 04:41 AM LYMPHOCYTES 31 04/22/2017 04:41 AM ABSOLUTE LYMPH COUNT 1.20 04/22/2017 04:41 AM MONOCYTES 16* 04/22/2017 04:41 AM ABSOLUTE MONOCYTE COUNT 0.60 04/22/2017 04:41 AM EOSINOPHILS 3 04/22/2017 04:41 AM ABSOLUTE EOSINOPHIL COUNT 0.10 04/22/2017 04:41 AM BASOPHILS 0 04/22/2017 04:41 AM ABSOLUTE BASOPHIL Brief Hospital Course: The patient was admitted and the following issues were addressed during this hospitalization: (with pertinent details). Mrs.Bernal Wilde is a 61 y/o female PMHx of HTN, HLD, DM, hypothyroidism and AML admitted to [facility] after fall at home and subsequently suffering from SAH, left femur fracture s/p cephalo medullary nail. Pt was admitted to [facility] on . Neurology was consulted because of acute to sub acute stroke read on CT around the time of admission. Pt had never had formal stroke workup. Neuro ordered MRI head which showed enhancing nodular medial right cerebellar lesion and numerous additional smaller enhancing juxtacortical bilateral cerebral, basal nuclei, and brainstem lesions with mild associated multifocal vasogenic edema likely reflecting leukemia. Opportunistic intracranial infection could appear similar. ID was consulted and BMT was made aware of finding on MRI head. Pt was transferred back to BMT service on 04/30/17 based on these new findings. Evaluation FIMS Current FIMS Eating FIM: 4 - Assist managing utensil, cup, or glass Grooming FIM: 4 - Minimal contact assistance, patient performs 75% or more of grooming/bathing/dressing/toileting tasks Bathing FIM: 1 - Total assistance, requires 2 staff to assist Dressing - Upper Body FIM: 5 - Set up Dressing - Lower Body FIM: 1 - Total assistance, requires 2 staff to assist Toileting FIM: 0 - Activity did not occur - Safety (waiting for therapy to eval) Bladder FIM: 1 - Total assistance, patient expends less than 25% effort ( complete % of assist, if change diapers, total assist) Bowel FIM: 1 - Total assistance, patient expends less than 25% effort (complete % of assist, if change diapers, total assist) Transfers FIM: 0 - Activity did not occur - Safety (waiting for therapy to eval) Shower Transfers FIM: 1 - Total assistance, two or more people Gait: 1 - Toal assistance, two or more people, < 50 feet Stairs FIM: 0 - Activity did not occur - Safety Comprehension FIM: 5 - Standby prompting. Understands abstract and/or basic information greater than 90% of the time, prompting less than 10% Expression FIM: 6 - Modified independence - Augemtative communication device or system (sports complex attendant) Social Interaction FIM: 5 - Supervision required - Able to interact appropriately >90% of the time, prompting <10% Problem Solving FIM: 3 - Moderate prompting - Able to solve routine problems 50- 74%. Needs direction less than half of the time to initiate, plan or complete daily activities Memory FIM: 3 - Moderate promting - Able to recognize people frequently encountered, remembers daily routines, responds to requests of others 50-74% of the time, needs prompting less than half of the time Eating FIM: 5 - Verbal cues, coaxing Grooming FIM: 5 - Set up Bathing FIM: 1 - Total assistance, requires 2 staff to assist Dressing - Upper Body FIM: 5 - Set up Dressing - Lower Body FIM: 1 - Total assistance, requires 2 staff to assist Toileting FIM: 1 - Total assistance, requires 2 staff to assist Bladder FIM: 1 - Total assistance, patient expends less than 25% effort ( complete % of assist, if change diapers, total assist) Bowel FIM: 1 - Total assistance, patient expends less than 25% effort (complete % of assist, if change diapers, total assist) Transfers FIM: 2 - Maximal assistance, lifting assistance to initiate and complete transfer Shower Transfers FIM: 1 - Total assistance, two or more people Gait: 1 - Total assistance, patient expends less than 25% effort (comment % of effort), <50 feet Stairs FIM: 0 - Activity did not occur - Safety Comprehension FIM: 5 - Standby prompting. Understands abstract and/or basic information greater than 90% of the time, prompting less than 10% Expression FIM: 5 - Standy prompting - Able to express abstract and/or basic information >90% of the time, prompting <10% Social Interaction FIM: 5 - Supervision required - Able to interact appropriately >90% of the time, prompting <10% Problem Solving FIM: 3 - Moderate prompting - Able to solve routine problems 50- 74%. Needs direction less than half of the time to initiate, plan or complete daily activities Memory FIM: 3 - Moderate promting - Able to recognize people frequently encountered, remembers daily routines, responds to requests of others 50-74% of the time, needs prompting less than half of the time Physical Therapy Current Recommendations/Plan/Goals Plan PT Plan: Balance/vestibular training, Bed mobility training, Family / caregiver training, Gait training, Stair training, Therapeutic exercise, Transfer training Comments: Transfers, bed mobility, gait endurance, and stairs. LE strengthening & standing balance. Recommendations PT Discharge Recommendations: Home with Assistance, Home Health Setting Equipment Recommendations: Patient owns necessary equipment Expected Discharge Date: 05/19/17 Weekly Goals Weekly Bed Mobility Goals: Patient will perform sit to supine with, Patient will perform supine to sit with Patient will perform sit to supine with: Stand by assistance Patient will perform supine to sit with: Stand by assistance Weekly Transfer Goals: Patient will complete sit to stand transfer with, Patient will complete stand to sit transfer with, Patient will complete stand pivot transfer with Patient will complete sit to stand transfer with: Minimum assistance Patient will complete stand to sit transfer with: Minimum assistance Patient will complete stand pivot transfer with: Minimum assistance Weekly Ambulation/Stairs Goals: Patient will ambulate Patient will ambulate: 50 feet, Minimum assistance Goal(s) for the Stay Patient will perform: at ambulation level, household mobility, Minimum assistance, with device Occupational Therapy Current Recommendations/Plan/Goals Recommendations OT Discharge Recommendations: Home with family assist, Home with Home Health OT Equipment Recommendations: Patient owns necessary equipment Expected Discharge Date: 05/19/17 Recommendations OT Discharge Recommendations: Home with family assist, Home with Home Health OT Equipment Recommendations: Patient owns necessary equipment Expected Discharge Date: 05/19/17 Goals for the stay Pt will perform basic care and transfer with: Roller walker level, Minimum assistance Condition at Discharge: Serious Discharge Diagnoses: Hospital Problems Active Problems * (Principal)Subarachnoid hemorrhage following injury, with loss of consciousness (HCC) HLD (hyperlipidemia) DM (diabetes mellitus) Myeloproliferative disorder HTN (hypertension) Vision impairment 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 Thrombocytopenia (HCC) Pancytopenia (HCC) Traumatic compression fracture of T11 thoracic vertebra (HCC) Hypothyroid SAH (subarachnoid hemorrhage) (HCC) Traumatic brain injury (HCC) Lesion of cerebellum Closed displaced intertrochanteric fracture of left femur (HCC) Cognitive impairment Impaired mobility and activities of daily living Surgical Procedures: None Significant Diagnostic Studies and Procedures: noted in brief hospital course Consults: ID Patient Disposition: [facility] in patient Patient instructions/medications: Activity as Tolerated It is important to [...] at discharge Report These Signs and Symptoms Please contact your doctor if you have any of the following symptoms: temperature higher than 100 degrees F, uncontrolled pain, persistent nausea and/ or vomiting or difficulty breathing Questions About Your Stay For questions or concerns regarding your hospital stay: - DURING BUSINESS HOURS (8:00 AM - 4:30 PM): Call [phone] and asked to be transferred to your discharge attending physician. - AFTER BUSINESS HOURS (4:30 PM - 8:00 AM, on weekends, or holidays): Call [phone] and ask the die sinking machine operator to page the on-call doctor for the discharge attending physician. Discharging attending physician: RAMIREZ MYERS V [[id number]] Diabetic Diet You should eat between 1600 and 2000 calories per day. This is equal to 60g ( grams) of carbohydrates per meal, and 30g of carbohydrates for a bedtime snack. If you have questions about your diet after you go home, you can call a dietitian at [phone]. Current Discharge Medication List CONTINUE these medications which have been CHANGED or REFILLED Details cholecalciferol (VITAMIN D-3) 400 unit tab Take 2 Tabs by mouth daily. Qty: 30 Each, Refills: 0 PRESCRIPTION TYPE: Normal This prescription was faxed to the pharmacy Pharmacy: [address] (Ph #: [phone]) insulin aspart (NOVOLOG FLEXPEN) 100 unit/mL injection PEN Inject 3 Units under the skin three times daily with meals. Qty: 3 Package, Refills: 3 PRESCRIPTION TYPE: Normal This prescription was faxed to the pharmacy Pharmacy: [address] (Ph #: [phone]) insulin glargine (LANTUS SOLOSTAR) 100 unit/mL (3 mL) injection PEN Inject 8 Units under the skin at bedtime daily. Qty: 3 Package, Refills: 3 PRESCRIPTION TYPE: Normal This prescription was faxed to the pharmacy Pharmacy: [address] (Ph #: [phone]) CONTINUE these medications which have NOT CHANGED [...] 10 mL, Refills: 0 PRESCRIPTION TYPE: Print enoxaparin (LOVENOX) 40 mg injection syringe Inject 0.4 mL under the skin daily for 35 days. Qty: 35 Syringe, Refills: 0 PRESCRIPTION TYPE: Print ergocalciferol (VITAMIN [...] 90 Tab, Refills: 0 PRESCRIPTION TYPE: Print guaiFENesin (ROBITUSSIN) 100 mg/5 mL oral solution Take 10 mL by mouth every 4 hours as needed. Qty: 118 mL, Refills: 0 PRESCRIPTION TYPE: Normal Insulin [place] (Disposable) 31 gauge x 1/4" ndle Use [...] areas as needed PRESCRIPTION TYPE: No Print uvpxvqbt-uindyrbga-vcsfzfbdcrnuu (MAXITROL) 3.5 mg/g-10,000 unit/g-0.1 % ophthalmic ointment Apply 1 cm to left eye as directed twice daily. Qty: 3.5 g, Refills: 2 PRESCRIPTION TYPE: Normal Associated Diagnoses: Panuveitis of left eye oxyCODONE (ROXICODONE, OXY-IR) 5 mg tablet Take 1-2 Tabs by mouth every 4 hours as needed Earliest Fill Date: 04/27/17 Qty: 90 Tab, Refills: 0 PRESCRIPTION TYPE: Print penicillin V potassium (VEETID) 250 mg tablet [...] 60 Tab, Refills: 0 PRESCRIPTION TYPE: OTC traZODone (DESYREL) 50 mg tablet Take 0.5 Tabs by mouth at bedtime daily for 60 days. Qty: 30 Tab, Refills: 0 PRESCRIPTION TYPE: Print The following medications were removed from your list. This list includes medications discontinued this stay and those removed from your prior med list in our system levoFLOXacin (LEVAQUIN) 750 mg tablet Scheduled appointments: May 06, 2017 1:30 PM CDT Office Visit with Philomena Parry MD [facility] - Neurosurgery (--) [address] [facility] Med Office [facility] 2nd Floor Pod B [facility] [address] May 06, 2017 2:00 PM CDT Office Visit with Ramirez Myers MD [facility] - Rehabilitation Medicine (--) [address] [facility] Office [facility] 2nd Flr Pod B [facility] [address] May 10, 2017 8:10 AM CDT Office Visit with Shane Sam MD [facility] - Orthopedics (--) [address] [facility] Orthopedics [facility] 1st And 2nd Floor [facility] [address] Jul 09, 2017 10:00 AM CDT BONE DENSITY EVAL with IM BONE DENSITY SCHED [facility] - Internal Medicine ([facility] Internal Medicine) 5th Floor Pod A [address] [facility] Med Office [facility] [address] Jul 09, 2017 10:20 AM CDT Return Patient with Miriam Conti MD [facility] - Internal Medicine (P Internal Medicine) 5th Floor Pod A [address] [facility] Med Office [facility] [address] Pending items needing follow up: Signed: Damion Green DO 05/03/2017 cc: Primary Care Physician: Na No PCP Verified Referring physicians: No Pcp, Na Additional provider(s): in this encounter Medications at Time of [...] PLUS) 0.5 % dpet four times daily. cholecalciferol (VITAMIN Take 2 Tabs by mouth 30 Each 0 04/30/2017 05/06/2017 D-3) 400 unit tab daily. clonazePAM (KLONOPIN) 0.5 Take 0.5 Tabs by mouth at 60 Tab 5 201606/21/2017 mg tablet bedtime daily. cyclopentolate Apply 1 Drop to left eye 2 mL 0 05/06/2017 06/02/2017 (CYCLODRYL) 1 % as directed three times ophthalmic solution daily. dorzolamide-timolol(+) Apply 1 Drop to left eye 10 mL 0 04/14/2017 06/02/2017 (COSOPT) 2-0.5 % as directed three times ophthalmic solution daily. enoxaparin (LOVENOX) 40 Inject 0.4 mL under the 35 Syringe 0 201605/06/2017 mg injection syringe skin daily for 35 days. ergocalciferol (VITAMIN Take 1 Cap by mouth [...] or 2 hours after food. guaiFENesin (ROBITUSSIN) Take 10 mL by mouth every 118 mL 0 201605/06/2017 100 mg/5 mL oral solution 4 hours as needed. insulin aspart (NOVOLOG Inject 3 Units under the 3 Package 3 201606/09/2017 FLEXPEN) 100 unit/mL skin three times daily injection PEN with meals. insulin glargine (LANTUS Inject 10 Units under the 3 Package 3 201606/09/2017 SOLOSTAR) 100 unit/mL (3 skin at bedtime daily. mL) injection PEN insulin glargine (LANTUS Inject 8 Units under the 3 Package 3 201605/06/2017 SOLOSTAR) 100 unit/mL (3 skin at bedtime daily. mL) injection PEN Insulin [place] Use as needed for insulin 100 Each [...] petrolatum (ABSORBASE) affected areas as needed oint zxbxmnui-coquzwefp-vpvmhh Apply 1 cm to left eye as 3.5 g 2 201607/07/2017 thasone (MAXITROL) 3.5 directed twice daily. mg/g-10,000 unit/g-0.1 % ophthalmic ointmentIndications: Panuveitis of left eye oxyCODONE (ROXICODONE, Take 1-2 Tabs by mouth 90 Tab 0 04/27/2017 OXY-IR) 5 mg tablet every 4 hours as needed Earliest Fill Date: 04/27/17 penicillin V potassium Take 3 tabs by [...] Tab 3 05/06/2017 06/28/2017 tablet times daily. traZODone (DESYREL) 50 mg Take 0.5 Tabs by mouth at 30 Tab 0 201605/06/2017 tablet bedtime daily for 60 days. as of this encounter Progress Notes * Shahla Phipps RN - 04/30/2017 4:55 PM CDT Donna Wilde discharged on 04/30/2017. To unit 15 .Discharge instructions reviewed with patient and family. Valuables returned: Patient spouse packed and left with all their belongings Personal Items / Valuables: Clothing. Home medications: Patient did not bring any belongings. .Functional assessment at discharge complete: Yes . * Ramirez Myers MD - 04/30/2017 1:32 PM CDT Formatting of this note may be different from the original. ATTESTATION I personally performed the omalley portions of the E/M visit, discussed case with resident and concur with resident documentation of history, physical exam, assessment, and treatment plan unless otherwise noted. I have made adjustments and additions directly to the text below when indicated. I have the following additional comments: -Brain MRI results discussed with radiology and neurology teams today. Found to have enhancing nodular lesion in the right cerebellum with additional smaller lesions and vasogenic edema. Results also communicated to BMT team who plans to re-admit patient to acute care for further work-up and management. 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 Rehabilitation: Rehab Dx: TBI, Left Femur Fracture, Stroke No Data Recorded Daily Functional Update: Transfers Device Sit to Stand Transfer: Assistive Device: Roller Walker (04/30/2017 10:00 AM) Transfer: Sit to Stand: Maximum assistance (04/30/2017 10:00 AM) Gait Device Assist Required Distance Gait: Assistive Device: Roller Walker;Wheelchair Follow (04/30/2017 9:15 AM) Gait: Assist Level: Minimum assistance (04/30/2017 9:15 AM) Gait Distance: 20 feet (+ 23 ft) (04/30/2017 9:15 AM) Toileting Assist Required Equipment Toilet Transfer Toileting Assist: Maximum Assist (04/29/2017 1:00 PM) Toileting Equipment: Grab bar - left (04/29/2017 1:00 PM) Toilet Transfer Assist: Maximum assist (04/29/2017 1:00 PM) Dressing Lower Body LE Dressing Assist: Total Assist (04/28/2017 9:45 AM) Cognition Ox3 w/o cues. Recall of AM therapy activities: Recalled details of OT session w/o cues. Sequences: Sit/Stand: Repetition of Sequence required x4 before patient able to recall. Stand/Sit: patient recalled details w/o cues. Discussed memory for safety with ADL's and Safety Zone for Reaching to maintain balance when performing ADL's. Patient and daughter verbalized understanding of POC. Traumatic Subarachnoid hemorrhage -s/p fall at home with + LOC -CT head 04/16: Moderate subarachnoid hemorrhage scattered throughout the bilateral hemispheric sulci >decrease propranolol to 15mg TID for neuro storming, will wean as tolerated -no reports of agitation -speech therapy for cognitive eval and remediation -monitor for sleep and mood disturbance Brain lesion -CT head: Unchanged low-attenuation within the right superior cerebellum, again suggestive of acute to subacute infarct in the superior cerebellar artery territory -Neuro surgery: stroke appears chronic as already dark -Neurology consulted, appreciate recs -Lipid panel: HDL 27, LDL 62, TG's 204 -MRI L spine 04/29 unremarkable -MRI head 04/29: Enhancing nodular medial right cerebellar lesion and numerous additional smaller enhancing juxtacortical bilateral cerebral, basal nuclei, and brainstem lesions with mild associated multifocal vasogenic edema likely reflecting leukemia. 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 -Patient is status post Flu/Hermila conditioning followed by MSD transplant -Recent biopsies show chronic remission and chimerism is 100% donor -Patient with previous aGvHD with skin and GI, now quiescent >BMT to follow and make additional recommendations as needed Musculoskeletal/ Orthopedic Injuries -T11 compression fracture during her fall that has remained stable during this admission -displaced left intertrochanteric femur fracture and required surgery on 2016 for stabilization -Currently WBAT for LLE >Pain control per below Atypical pneumonia -chest xray on 04-16-2017 showed infiltrates with groundglass opacities for atypical pneumonia -Patient was CMV +/+ and needs weekly monitoring and is now negative as of 2016 >Prophylactic acyclovir BID >Continue levaquin to complete 10 day course on 04/29/17 Panuveitis and NAOIN, vision loss, left eye -Optho consulted while inpatient -Continue brimonidine and maxitrol -Will need vitreous biopsy as outpatient -She has no light perception in the left eye, since early 03/2017 DM -Endo following -Currently on lantus 10U and 3U aspart w/meals Hypothyroid -Synthroid 50mcg -Endo following HTN -Propranolol per above Pain Management: oxycodone 5mg Q3H Skin: Nurse and therapists will teach the patient and / or family skin inspection and pressure sore prevention. Bowel: Implement bowel protocol Bladder: BVIs x3 until <125ml and ISC for >300ml Nutrition: Regular diet Mental Health: consult neuropsychology to provide support / counseling DVT Prophylaxis: SCD Damion Green DO Pager [phone] Subjective No acute changes overnight. Pt resting comfortably in bed with in room when seen. Pt complaining that she is tired throughout the day which causes her anxiety at night which inhibits her ability to fall asleep. Pt also complaining of sore on the R side of her tongue. MRI with evidence of brain lesion. BMT notified and will transfer pt back to their service as soon as a bed is available. Objective Vital Signs: Last Filed Vital Signs: 24 Hour Range BP: 121/54 (04/30 519) Temp: 36.8 C (98.2 F) (04/30 519) Pulse: 68 (04/30 519) Respirations: 18 PER MINUTE (04/30 519) SpO2: 97 % (04/30 519) O2 Delivery: None (Room Air) (04/30 519) BP: (121-134)/(54-63) Temp: [36.3 C (97.4 F)-36.8 C (98.2 F)] Pulse: [64-72] Respirations: [16 PER MINUTE-18 PER MINUTE] SpO2: [97 %-100 %] O2 Delivery: None (Room Air) Intensity Pain Scale 0-10 (Pain 1): 0 (04/30/17 1056) Vitals: 04/27/17 1500 Weight: 59.8 kg (131 lb 14.4 oz) Intake/Output Summary: (Last 24 hours) Intake/Output Summary (Last 24 hours) at 04/30/17 1332 Last data filed at 04/30/17 09 Gross per 24 hour Intake 0 ml Output 130 ml Net -130 ml Stool Occurrence: 1 BVI (Bladder Scan)(mL): 74 milliliters (PVR) (04/30/17916) Last BM Date: 04/29/17 Lab: Results for orders placed or performed during the hospital encounter of (from the past 24 hour(s)) POC GLUCOSE Collection Time: 04/29/17 4:31 PM # # Low-High Glucose, POC 119 (H) 70 - 100 MG/DL POC GLUCOSE Collection Time: 04/29/17 9:10 PM # # Low-High Glucose, POC 143 (H) 70 - 100 MG/DL POC GLUCOSE Collection Time: 04/30/17 6:58 AM # # Low-High Glucose, POC 72 70 - 100 MG/DL CBC Collection Time: 04/30/17 8:00 AM # # Low-High White Blood Cells 4.7 4.5 - 11.0 [...] K/UL MPV 7.1 7 - 11 FL BASIC METABOLIC PANEL Collection Time: 04/30/17 8:00 AM # # Low-High Sodium 136 (L) 137 - 147 MMOL/L Potassium 4.1 3.5 - 5.1 MMOL/L Chloride 107 98 - 110 MMOL/L CO2 24 21 - 30 MMOL/L Anion Gap 5 3 - 12 Glucose 77 70 - 100 MG/DL Blood Urea Nitrogen 22 7 - 25 MG/DL Creatinine 0.86 0.4 - 1.00 MG/DL Calcium 9.2 8.5 - 10.6 MG/DL eGFR Non >60 >60 mL/min eGFR >60 >60 mL/min Physical Exam VS: BP 121/54 (BP Source: Arm, Right) | Pulse 68 | Temp 36.8 C (98.2 F) | Ht 162.6 cm (64") | Wt 59.8 kg (131 lb 14.4 oz) | SpO2 97% | BMI 22.64 kg/m2 Gen: alert and conversant HEENT: Diffuse ecchymosis to L side of face; vision loss left eye CV: well perfused, distal pulses intact, RRR Pulm: breathing unlabored, normal effort, CTAB Abd: non-distended, soft, non-tender Skin: no obvious rashes or lesions on exposed surfaces Psych: Appropriate mood, normal affect Neuro: Mental Status: Alert and oriented Speech: fluent and clear in Belarusian, no evidence of aphasia or dysarthria Cognition: slowed processing speed, difficulty with multi-step directions Motor: Continued limited strength in proximal LLE 2/2 pain. Otherwise full strength Therapy Notes & Labs Reviewed. Damion Green DO Pager [phone] * Niurka Campo - 04/30/2017 11:35 AM CDT SPEECH-LANGUAGE PATHOLOGY REHAB SPEECH DAILY NOTE SUMMARY: Patient was seen for one 30 min therapy session. was present for session with concrete stone fabricating supervisor. Interpretor: Georgie Urrutia PLAN: Continue with current plan. FREQUENCY TODAY: 1x ACTIVITIES FOR THE DAY: Pt was seen in room, lethargic noted. Nursing staff notified. Ox3 w/o cues. SOBEIDA: Counting money 3/7 Moderate verbal cues required Safety: able to identify nurse call button, locking breaks prior to sitting in chair. Unable to identify to hit call light prior to getting out of bed. Speech Nursing Home Goals Will improve comprehension and remember information for daily living tasks with : Minimal assist Will improve attention skills necessary for safety in the home with: Minimal assist Speech Short Term Goals Will demonstrate prospective memory skills to complete functional tasks with: 80 % accuracy, Minimal to Moderate cues Will demonstrate memory for safety sequences for transfer and ADLs with: 80% accuracy, Minimal cues Other Short Term Goals: Patient will complete cognitive assessment Therapist: Niurka Campo M.A. [facility] HAND Pager: [phone] Date: 04/30/2017 * Zo Menon MD - 04/30/2017 10:44 AM CDT Formatting of this note may be different from the original. Endocrinology Progress Note Assessment: Diabetes Mellitus Type 2, Uncontrolled With Hyperglycemia - Dx: 18 years ago. Follows with Dr. Conti for diabetes care - [facility] - A1c: 6.2% falsely low A1C due to anemia - DM complications: Recent right eye retinopathy, has received injections. - CONVEYOR SYSTEM OPERATOR regimen: Levemir 12 Units QHS , Novolog 4 units with meals and LDCF starting at 140 - Lipid profile: February 2015 with LDL 122, TG 160, HDL 38 Hypoglycemia -Blood sugar of 61 last evening due to receiving her insulin and not eating much of her dinner. -Her blood sugars have been pretty well controlled for the last day. -She is going to be more active while in rehab. Primary hyperparathyroidism - No hx of kidney stone, broken bone, and family history of calcium disorders. - Ultrasound showed possible left parathyroid adenoma- 06/26 - Currently admitted with Fragility fracture -Calcium is normal today Hypovitaminosis D: - Vit D was 22.4 ( 04/26) - on 50,000 IU ergocalciferol three times a week started this admit Hypothyroidism Abnormal thyroid function test - on LT4 50mcg daily Clinical Osteoporosis - Risk factors - Primary Hyperparathyroidism, Vitamin D deficiency , Previous steroid use - Currently admitted with fragility fracture -She follows with Dr. Conti Left intertrochanteric femur fracture s/ p fall AML s/p SCT Recommendations: Reduce Lantus to 8 units nightly. Continue NovoLog 3 units 3 times daily with meals. Continue low dose correction factor. Continue 800 international units vitamin D daily. Bone density scan ordered for June. Clinic follow-up with Dr. Hu scheduled for June. Subjective Donna Wilde is a 61 y.o. female. Patient doing well this morning, seen in the gym after finishing PT. translation was provided by a young female freezer operator. Her was also present and involved. Her blood sugar range over the last 24 hours has been 72-145. Fasting blood sugar this morning was 72. She denies symptoms of hypoglycemia. She states she is eating fairly well. She is not eating all of her food, though she is not skipping meals either. On ROS: Denies fevers, chills, nausea, vomiting, lightheadedness, pain. Objective Vital Signs: Last Filed Vital Signs: 24 Hour Range BP: 121/54 (04/30 519) Temp: 36.8 C (98.2 F) (04/30 519) Pulse: 68 (04/30 519) Respirations: 18 PER MINUTE (04/30 519) SpO2: 97 % (04/30 519) O2 Delivery: None (Room Air) (04/30 519) BP: (121-134)/(54-63) Temp: [36.3 C (97.4 F)-36.8 C (98.2 F)] Pulse: [64-72] Respirations: [16 PER MINUTE-18 PER MINUTE] SpO2: [97 %-100 %] O2 Delivery: None (Room Air) Intake/Output Summary (Last 24 hours) at 04/30/17 1044 Last data filed at 04/30/17 0917 Gross per 24 hour Intake 240 ml Output 130 ml Net 110 ml PHYSICAL EXAMINATION General: Awake, Alert, Oriented; Cardiovascular: RRR Pulmonary: CTAB Skin: Multiple ecchymoses. Large ecchymoses on the right side of her face. LABS: Point of Care Testing (Last 24 hours) Recent Labs 04/28/17 21004/28/17 2134 04/28/178 04/29/17 0713 04/29/17 1151 04/29/17 1631 04/29/17 2110 04/30/17 0658 GLUPOC 67* 61* 91 84 145* 119* 143* 72 Recent Labs 04/28/17 0658 04/29/17 0735 04/30/17 0800 NA 134* 137 136* K 3.7 3.9 4.1 CL 103 106 107 CO2 29 25 24 GAP 2* 6 5 BUN 21 23 22 CR 0.78 0.77 0.86 GLU 102* 82 77 CA 8.9 8.9 9.2 HGBA1C -- 5.5 -- TSH 8.555* -- -- Recent Labs 04/28/17 0658 04/29/17 0735 04/30/17 0800 WBC 4.4* 4.6 4.7 HGB 7.4* 7.9* 7.5* HCT 21.1* 23.1* 22.1* PLTCT 69* 78* 83* Estimated Creatinine Clearance: 65.7 mL/min (based on Cr of 0.86). Vitals: 04/27/17 1500 Weight: 59.8 kg (131 lb 14.4 oz) Thyroid Studies Lab Results Component Value Date/Time TSH 8.555 (H) 04/28/2017 06:58 AM No results found for: FREET3, [id number], THYBINDGLB MEDS acyclovir 800 mg Oral BID bacitracin Topical QDAY brimonidine 1 Drop Left Eye TID carboxymethylcellulose 1 Drop Both Eyes QID cholecalciferol 800 Units Oral QDAY docusate 100 mg Oral BID ferrous sulfate 325 mg Oral TID w/ meals insulin aspart 0-7 Units Subcutaneous TID w/ meals insulin aspart 3 Units Subcutaneous TID w/ meals insulin glargine 8 Units Subcutaneous QDAY(12) levothyroxine 50 mcg Oral QDAY 30 min before breakfast magnesium oxide 400 mg Oral BID melatonin 3 mg Oral QHS neomycin/polymyxin/dexamethasone 1 Drop Left Eye TID propranolol 10 mg Oral TID senna 2 Tab Oral QHS IV MEDS Prnacetaminophen Q4H PRN, aluminum/magnesium hydroxide Q4H PRN, milk of magnesia (CONC) Q4H PRN, oxyCODONE Q3H PRN Zo Menon MD 04/30/2017 Endocrine * Ramirez Myers MD - 04/29/2017 1:27 PM CDT Formatting of this note may be different from the original. ATTESTATION I personally performed the omalley portions of the E/M visit, discussed case with resident and concur with resident documentation of history, physical exam, assessment, and treatment plan unless otherwise noted. 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 Rehabilitation: Rehab Dx: TBI, Left Femur Fracture, Stroke Expected Discharge Date: 05/19/17 Daily Functional Update: Transfers Device Sit to Stand Transfer: Assistive Device: Roller Walker (04/29/2017 10:45 AM) Transfer: Sit to Stand: Total assist (04/29/2017 10:45 AM) Gait Device Assist Required Distance Gait: Assistive Device: Roller Walker;Wheelchair Follow (04/28/2017 3:00 PM) Gait: Assist Level: Moderate assistance (with chair follow) (04/28/2017 3:00 PM) Gait Distance: 100 feet (+ 80 feet with seated break between) (04/28/2017 3:00 PM) Toileting Assist Required Equipment Toilet Transfer Toileting Assist: Maximum Assist (04/29/2017 1:00 PM) Toileting Equipment: Grab bar - left (04/29/2017 1:00 PM) Toilet Transfer Assist: Maximum assist (04/29/2017 1:00 PM) Dressing Lower Body LE Dressing Assist: Total Assist (04/28/2017 9:45 AM) Traumatic Subarachnoid hemorrhage -s/p fall at home with + LOC -CT head 04/16: Moderate subarachnoid hemorrhage scattered throughout the bilateral hemispheric sulci >decrease propranolol to 15mg TID for neuro storming, will wean as tolerated -no reports of agitation -speech therapy for cognitive eval and remediation -monitor for sleep and mood disturbance Right cerebellar stroke -CT head: Unchanged low-attenuation within the right superior cerebellum, again suggestive of acute to subacute infarct in the superior cerebellar artery territory -Neuro surgery: stroke appears chronic as already dark -Neurology consulted, appreciate recs -Lipid panel: HDL 27, LDL 62, TG's 204 >f/u MRI head 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 -Patient is status post Flu/Hermila conditioning followed by MSD transplant -Recent biopsies show chronic remission and chimerism is 100% donor -Patient with previous aGvHD with skin and GI, now quiescent >BMT to follow and make additional recommendations as needed Musculoskeletal/ Orthopedic Injuries -T11 compression fracture during her fall that has remained stable during this admission -displaced left intertrochanteric femur fracture and required surgery on 2016 for stabilization -Currently WBAT for LLE >Pain control per below Atypical pneumonia -chest xray on 04-16-2017 showed infiltrates with groundglass opacities for atypical pneumonia -Patient was CMV +/+ and needs weekly monitoring and is now negative as of 2016 >Prophylactic acyclovir BID >Continue levaquin to complete 10 day course on 04/29/17 Panuveitis and NAOIN, vision loss, left eye -Optho consulted while inpatient -Continue brimonidine and maxitrol -Will need vitreous biopsy as outpatient -She has no light perception in the left eye, since early 03/2017 DM -Endo following -Currently on lantus 10U and 3U aspart w/meals Hypothyroid -Synthroid 50mcg -Endo following HTN -Propranolol per above Pain Management: oxycodone 5mg Q3H Skin: Nurse and therapists will teach the patient and / or family skin inspection and pressure sore prevention. Bowel: Implement bowel protocol Bladder: BVIs x3 until <125ml and ISC for >300ml Nutrition: Regular diet Mental Health: consult neuropsychology to provide support / counseling DVT Prophylaxis: SCD Damion Green DO Pager [phone] Subjective No acute changes overnight. Pt resting comfortably in bed with daughter in room when seen. Pt's pain controlled with current regimen. Pt denied generalized pain , insomnia. Objective Vital Signs: Last Filed Vital Signs: 24 Hour Range BP: 132/68 (04/29 906) Temp: 36.9 C (98.5 F) (04/29 445) Pulse: 68 (04/29 906) Respirations: 16 PER MINUTE (04/29 906) SpO2: 99 % (04/29 445) O2 Delivery: None (Room Air) (04/29 445) BP: (102-139)/(51-68) Temp: [36.4 C (97.6 F)-36.9 C (98.5 F)] Pulse: [57-73] Respirations: [16 PER MINUTE-18 PER MINUTE] SpO2: [98 %-99 %] O2 Delivery: None (Room Air) Intensity Pain Scale 0-10 (Pain 1): 8 (04/28/17 1359) Vitals: 04/27/17 1500 Weight: 59.8 kg (131 lb 14.4 oz) Intake/Output Summary: (Last 24 hours) Intake/Output Summary (Last 24 hours) at 04/29/17 1327 Last data filed at 04/29/17 0850 Gross per 24 hour Intake 120 ml Output 400 ml Net -280 ml Stool Occurrence: 1 BVI (Bladder Scan)(mL): 59 milliliters (04/29/17 0850) Last BM Date: 04/29/17 Lab: Results for orders placed or performed during the hospital encounter of (from the past 24 hour(s)) POC GLUCOSE Collection Time: 04/28/17 5:56 PM # # Low-High Glucose, POC 142 (H) 70 - 100 MG/DL POC GLUCOSE Collection Time: 04/28/17 9:06 PM # # Low-High Glucose, POC 67 (L) 70 - 100 MG/DL POC GLUCOSE Collection Time: 04/28/17 9:34 PM # # Low-High Glucose, POC 61 (L) 70 - 100 MG/DL POC GLUCOSE Collection Time: 04/28/17 10:08 PM # # Low-High Glucose, POC 91 70 - 100 MG/DL POC GLUCOSE Collection Time: 04/29/17 7:13 AM # # Low-High Glucose, POC 84 70 - 100 MG/DL CBC Collection Time: 04/29/17 7:35 AM # # Low-High White Blood Cells 4.6 4.5 - 11.0 K/UL RBC 2.21 (L) 4.0 - 5.0 M/UL Hemoglobin 7.9 (L) 12.0 - 15.0 GM/DL Hematocrit 23.1 (L) 36 - 45 % MCV 104.6 (H) 80 - 100 FL MCH 35.8 (H) 26 - 34 PG MCHC 34.2 32.0 - 36.0 G/DL RDW 19.5 (H) 11 - 15 % Platelet Count 78 (L) 150 - 400 K/UL MPV 7.5 7 - 11 FL BASIC METABOLIC PANEL Collection Time: 04/29/17 7:35 AM # # Low-High Sodium 137 137 - 147 MMOL/L Potassium 3.9 3.5 - 5.1 MMOL/L Chloride 106 98 - 110 MMOL/L CO2 25 21 - 30 MMOL/L Anion Gap 6 3 - 12 Glucose 82 70 - 100 MG/DL Blood Urea Nitrogen 23 7 - 25 MG/DL Creatinine 0.77 0.4 - 1.00 MG/DL Calcium 8.9 8.5 - 10.6 MG/DL eGFR Non >60 >60 mL/min eGFR >60 >60 mL/min HEMOGLOBIN A1C Collection Time: 04/29/17 7:35 AM # # Low-High Hemoglobin A1C 5.5 4.0 - 6.0 % LIPID PROFILE Collection Time: 04/29/17 7:35 AM # # Low-High Cholesterol 127 <200 MG/DL Triglycerides 204 (H) <150 MG/DL HDL 27 (L) >40 MG/DL LDL 62 <100 MG/DL VLDL 41 MG/DL Non HDL Cholesterol 100 MG/DL POC GLUCOSE Collection Time: 04/29/17 11:51 AM # # Low-High Glucose, POC 145 (H) 70 - 100 MG/DL Physical Exam VS: BP 132/68 (BP Source: Arm, Right) | Pulse 68 | Temp 36.9 C (98.5 F) | Ht 162.6 cm (64") | Wt 59.8 kg (131 lb 14.4 oz) | SpO2 99% | BMI 22.64 kg/m2 Gen: alert and conversant HEENT: Diffuse ecchymosis to L side of face; vision loss left eye CV: well perfused, distal pulses intact, RRR Pulm: breathing unlabored, normal effort, CTAB Abd: non-distended, soft, non-tender Skin: no obvious rashes or lesions on exposed surfaces Psych: Appropriate mood, normal affect Neuro: Mental Status: Alert and oriented Speech: fluent and clear, no evidence of aphasia or dysarthria Cognition: slowed processing speed, difficulty with multi-step directions Motor: full strength with the exception of pain limited strength in the proximal left lower limb Therapy Notes & Labs Reviewed. Damion Green DO Pager [phone] * Zo Menon MD - 04/29/2017 11:11 AM CDT Formatting of this note may be different from the original. Endocrinology Progress Note Assessment: Diabetes Mellitus Type 2, Uncontrolled With Hyperglycemia - Dx: 18 years ago. Follows with Dr. Conti for diabetes care - [facility] - A1c: 6.2% falsely low A1C due to anemia - DM complications: Recent right eye retinopathy, has received injections. - CONVEYOR SYSTEM OPERATOR regimen: Levemir 12 Units QHS , Novolog 4 units with meals and LDCF starting at 140 - Lipid profile: February 2015 with LDL 122, TG 160, HDL 38 Hypoglycemia -Blood sugar of 61 last evening due to receiving her insulin and not eating much of her dinner. -Her blood sugars have been pretty well controlled for the last day. -She is going to be more active while in rehab. Primary hyperparathyroidism - No hx of kidney stone, broken bone, and family history of calcium disorders. - Ultrasound showed possible left parathyroid adenoma- 06/26 - Currently admitted with Fragility fracture -Calcium is normal today Hypovitaminosis D: - Vit D was 22.4 ( 04/26) - on 50,000 IU ergocalciferol three times a week started this admit Hypothyroidism Abnormal thyroid function test - on LT4 50mcg daily Clinical Osteoporosis - Risk factors - Primary Hyperparathyroidism, Vitamin D deficiency , Previous steroid use - Currently admitted with fragility fracture -She follows with Dr. Conti Left intertrochanteric femur fracture s/ p fall AML s/p SCT Recommendations: Continue Lantus 10 units nightly. Reduce NovoLog to 3 units 3 times daily with meals. Continue low dose correction factor. Continue 800 international units vitamin D daily. Bone density scan ordered for June. Clinic follow-up with Dr. Hu scheduled for June. Subjective Donna Wilde is a 61 y.o. female. Patient doing well this morning, seen in the gym after finishing OT. Her daughter in the freezer operator were present for our visit. The patient had a blood sugar of 61 last night after dinner. The patient and daughter both state that she did not like her dinner so did not eat much of it. Her son then about her a piece of pizza and brought it to her. She ate the pizza, after the low blood sugar reading. She did feel a little lightheaded with the low blood sugar. On ROS: Denies fevers, chills, nausea, vomiting, lightheadedness, pain. Objective Vital Signs: Last Filed Vital Signs: 24 Hour Range BP: 132/68 (04/29 906) Temp: 36.9 C (98.5 F) (04/29 445) Pulse: 68 (04/29 906) Respirations: 16 PER MINUTE (04/29 906) SpO2: 99 % (04/29 445) O2 Delivery: None (Room Air) (04/29 445) BP: (102-139)/(51-68) Temp: [36.4 C (97.6 F)-36.9 C (98.5 F)] Pulse: [57-73] Respirations: [16 PER MINUTE-18 PER MINUTE] SpO2: [98 %-99 %] O2 Delivery: None (Room Air) Intake/Output Summary (Last 24 hours) at 04/29/17 1111 Last data filed at 04/29/17 0850 Gross per 24 hour Intake 120 ml Output 400 ml Net -280 ml PHYSICAL EXAMINATION General: Awake, Alert, Oriented; Cardiovascular: RRR Pulmonary: CTAB Abdomen: Soft LABS: Point of Care Testing (Last 24 hours) Recent Labs 04/27/17 2046 04/28/17 0857 04/28/17 1302 04/28/17 1756 04/28/17 2106 04/28/17 2134 04/28/17 2208 04/29/17 0713 GLUPOC 97 149* 120* 142* 67* 61* 91 84 Recent Labs 04/27/17 0443 04/28/17 0658 04/29/17 0735 NA -- 134* 137 K -- 3.7 3.9 CL -- 103 106 CO2 -- 29 25 GAP -- 2* 6 BUN -- 21 23 CR -- 0.78 0.77 GLU -- 102* 82 CA -- 8.9 8.9 HGBA1C -- -- 5.5 TSH 6.360* 8.555* -- Recent Labs 04/27/1744204/28/17 0658 04/29/17 0735 WBC 4.3* 4.4* 4.6 HGB 7.3* 7.4* 7.9* HCT 20.5* 21.1* 23.1* PLTCT 53* 69* 78* Estimated Creatinine Clearance: 73.3 mL/min (based on Cr of 0.77). Vitals: 04/27/17 1500 Weight: 59.8 kg (131 lb 14.4 oz) Thyroid Studies Lab Results Component Value Date/Time TSH 8.555 (H) 04/28/2017 06:58 AM No results found for: FREET3, [id number], THYBINDGLB MEDS acyclovir 800 mg Oral BID bacitracin Topical QDAY brimonidine 1 Drop Left Eye TID carboxymethylcellulose 1 Drop Both Eyes QID cholecalciferol 800 Units Oral QDAY docusate 100 mg Oral BID ferrous sulfate 325 mg Oral TID w/ meals insulin aspart 0-7 Units Subcutaneous TID w/ meals insulin aspart 3 Units Subcutaneous TID w/ meals insulin glargine 10 Units Subcutaneous QDAY(12) levoFLOXacin 750 mg Oral Q24H* levothyroxine 50 mcg Oral QDAY 30 min before breakfast magnesium oxide 400 mg Oral BID melatonin 3 mg Oral QHS neomycin/polymyxin/dexamethasone 1 Drop Left Eye TID propranolol 20 mg Oral TID senna 2 Tab Oral QHS traZODone 25 mg Oral QHS IV MEDS Prnacetaminophen Q4H PRN, aluminum/magnesium hydroxide Q4H PRN, milk of magnesia (CONC) Q4H PRN, oxyCODONE Q3H PRN Zo Menon MD 04/29/2017 Endocrine * Leny Vicente MA - 04/29/2017 10:15 AM CDT SPEECH-LANGUAGE PATHOLOGY REHAB SPEECH DAILY NOTE SUMMARY: Patient was seen for one 30 min therapy session. Daughter was present for therapy session. PLAN: Continue current therapy plan. FREQUENCY TODAY: 1x ACTIVITIES FOR THE DAY: Ox3 w/o cues. Recall of AM therapy activities: Recalled details of OT session w/o cues. Sequences: Sit/Stand: Repetition of Sequence required x4 before patient able to recall. Stand/Sit: patient recalled details w/o cues. Discussed memory for safety with ADL's and Safety Zone for Reaching to maintain balance when performing ADL's. Patient and daughter verbalized understanding of POC. Speech Nursing Home Goals Will improve comprehension and remember information for daily living tasks with : Minimal assist Will improve attention skills necessary for safety in the home with: Minimal assist Speech Short Term Goals Will demonstrate prospective memory skills to complete functional tasks with: 80 % accuracy, Minimal to Moderate cues Will demonstrate memory for safety sequences for transfer and ADLs with: 80% accuracy, Minimal cues Other Short Term Goals: Patient will complete cognitive assessment Therapist: BUD Hill/BOBY/HIRED HAND Date: 04/29/2017 * Awilda Francisco - 04/29/2017 10:15 AM CDT MRI tentatively scheduled for 04/29 @ 1800. Please call MRI staff at 1700 to confirm time. Transportation scheduled via [facility], w/ a 1730 p/u, round trip. Transferred call to ROSARIO Gale to assist with patient screening w/ tanzanian interrupter in the room. * Leny Vicente MA - 04/28/2017 4:11 PM CDT SPEECH-LANGUAGE PATHOLOGY COGNITIVE ASSESSMENT EVALUATION SUMMARY Summary* Overall Cognitive Severity Level: Mild Cog Func Summary: Patient was seen for a cognitive-communication evaluation. Results suggest at least mild deficits with attention, sequential thought and immediate recall. Patient was seen later afternoon and appeared very fatigued completion of assessment is needed. Patient's daughter reported mildly impaired slowed processing and vision deficits that were present prior to hospitalization. Cognition was otherwise not far from her baseline according to her daughter. Mrs. Taveras no longer cooks, drives, management her medication 's or leaves her house. Patient's and children assist with her care. Mrs. Taveras's speech, while intelligible per sports complex attendant, was observed to be mildly imprecise. 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 Speech intelligibility was judged to be functional therefore cognition (memory and sequencing for ADL's) will be the emphasis of therapy. Prognosis: Fair, Good Plan: Continue Treatment Daily. Results Reported to Physician: Yes (EMR) PRAGMATICS Comments*: Pragmatic skills appeared appropriate. Patient initiated conversation and exhibited good turn taking skills during conversation. BEHAVIOR Comments*: Behavior was appropriate. Mrs. Taveras did appear very tired however she was willing to participate. No concerns with behavior. AUDITORY COMPREHENSION Comments*: No focal language deficits. Patient followed task instructions and engaged in conversation demonstrating functional auditory comprehension. ORIENTATION Comments*: Patient was Ox4 w/o cues both sessions. She verbalized insight into his medical deficits. AUDITORY ATTENTION/WORKING MEMORY Comments*: Immediate Story Recall: 08/28. Recognition Memory: 10/13 Total on task: 03/20 AUDITORY MEMORY/SUSTAINED ATTENTION Comments*: Patient exhibited good sustained attention in spite of fatigue. More assessment needed for complex attention. SEQUENCING/ORGANIZATION Comments*: At least mild deficits with sequencing ADL's. 6/8 on tasks x2. PROBLEM SOLVING Comments*: Verbal situational problem solvin/5 REASONING Comments*: Patient perform well on concrete reasoning tasks. Further assessment to be completed for more abstract tasks however suspect she will do well. MATH/MONEY SKILLS Comments*: Not assessed. Simple time problems to be completed for ADL's. VISUAL PERCEPTUAL Comments*: Clock drawing noted numbers were slightly skewed. Visual assessment for functional reading to be completed. Objective* Relevant Med Background: Patient is a 61 y/o female PMHx of HTN, HLD, DM, hypothyroidism and AML admitted to [facility] after fall at home and subsequently suffering from SAH, left femur fracture s/p cephalo medullary nail. Traumatic Subarachnoid hemorrhage -s/p fall at home with + LOC -CT head 04/16: Moderate subarachnoid hemorrhage scattered throughout the bilateral hemispheric sulci Handedness: Right Hearing: WFL Lives With: Spouse Education: 4th Grade in [place]. Patient has some functional reading skills for ADL's however as vision has worsened patient relies on her more. Receives Help From: Spouse, Family Vocational: On Disability Psychosocial Status: Willing and Cooperative to Participate Persons Present: Daughter Subjective* Pain: Patient has no complaint of pain Trach Presence: No Feeding Tube Present During Eval: None Education* Persons Educated: Pt/Family Barriers To Learning: None Noted Interventions: Family Educated Teaching Methods: Verbal Topics: Memory Patient Response: Verbalized Understanding Goal Formulation: With Pt/Family Speech Nursing Home Goals Will improve comprehension and remember information for daily living tasks with : Minimal assist Will improve attention skills necessary for safety in the home with: Minimal assist Speech Short Term Goals Will demonstrate prospective memory skills to complete functional tasks with: 80 % accuracy, Minimal to Moderate cues Will demonstrate memory for safety sequences for transfer and ADLs with: 80% accuracy, Minimal cues Other Short Term Goals: Patient will complete cognitive assessment Therapist: BUD [place]/CCC/HIRED HAND Date: 04/28/2017 * Mary Almanzar RN - 04/28/2017 3:25 PM CDT Pt back from therapy. RN attempted to stick pt for labs. Attempt unsuccessful. RN talked with bicycle courier about attempting to get labs. Will call lab troubleshoot if needed. * Ramirez Myers MD - 04/28/2017 12:34 PM CDT Formatting of this note may be different from the original. ATTESTATION I personally performed the omalley portions of the E/M visit, discussed case with resident and concur with resident documentation of history, physical exam, assessment, and treatment plan unless otherwise noted. I have made adjustments and additions directly to the text below when indicated. I have the following additional comments: -Consult neurology due to sub-acute cerebellar stroke on Head CT. Appreciate their recs for any further work-up indicated as well as secondary stroke prevention recommendations. -Endocrine will continue to follow for blood glucose management. -Labs and vitals reviewed. -Pancytopenia, stable. -Hypothyroidism, elevated TSH, low T3 -- endocrine following and managing synthroid dosing -Mild Hyponatremia, stable, will monitor -upgraded to regular diet with thin liquids on 04/27 -speech therapy to perform cognitive evaluation/ remediation -Ct Technician: Emy Valera Staff name: Ramirez Myers MD Date: 04/28/2017 Physical Medicine & Rehabilitation Progress Note Today's Date: 04/28/2017 Admission Date: 04/27/2017 LOS: 1 day Insurance: Principal Problem: Subarachnoid hemorrhage following injury, with loss of consciousness (HCC) Active Problems: HLD (hyperlipidemia) DM (diabetes mellitus) Myeloproliferative disorder HTN (hypertension) Vision impairment 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 Traumatic Subarachnoid hemorrhage -s/p fall at home with + LOC -CT head 04/16: Moderate subarachnoid hemorrhage scattered throughout the bilateral hemispheric sulci >Continue propranolol 20mg TID for neuro storming, will wean as tolerated -no reports of agitation -speech therapy for cognitive eval and remediation -monitor for sleep and mood disturbance Right cerebellar stroke -CT head: Unchanged low-attenuation within the right superior cerebellum, again suggestive of acute to subacute infarct in the superior cerebellar artery territory -Neuro surgery: stroke appears chronic as already dark >Consult Neurology >Check Lipid panel 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 -Patient is status post Flu/Hermila conditioning followed by MSD transplant -Recent biopsies show chronic remission and chimerism is 100% donor -Patient with previous aGvHD with skin and GI, now quiescent >BMT to follow and make additional recommendations as needed Musculoskeletal/ Orthopedic Injuries -T11 compression fracture during her fall that has remained stable during this admission -displaced left intertrochanteric femur fracture and required surgery on 2016 for stabilization -Currently WBAT for LLE >Pain control per below Atypical pneumonia -chest xray on 04-16-2017 showed infiltrates with groundglass opacities for atypical pneumonia -Patient was CMV +/+ and needs weekly monitoring and is now negative as of 2016 >Prophylactic acyclovir BID >Continue levaquin to complete 10 day course on 04/29/17 Panuveitis and NAOIN, vision loss, left eye -Optho consulted while inpatient -Continue brimonidine and maxitrol -Will need vitreous biopsy as outpatient -She has no light perception in the left eye, since early 03/2017 DM -Endo following -Currently on lantus 10U and 4U aspart w/meals Hypothyroid -Synthroid 50mcg >Will obtain TSH free T4 and total T3 per endo recs HTN -Propranolol per above Pain Management: oxycodone 5mg Q3H Skin: Nurse and therapists will teach the patient and / or family skin inspection and pressure sore prevention. Bowel: Implement bowel protocol Bladder: BVIs x3 until <125ml and ISC for >300ml Nutrition: Regular diet Mental Health: consult neuropsychology to provide support / counseling DVT Prophylaxis: SCD Damion Green DO Pager [phone] Subjective No acute changes since admission. Pt resting comfortably in bed with daughter at bedside. Pt had no complaints when seen aside from a mild headache. Objective Vital Signs: Last Filed Vital Signs: 24 Hour Range BP: 130/59 mmHg (04/28 855) Temp: 37.1 C (98.7 F) (04/28 855) Pulse: 68 (04/28 855) Respirations: 16 PER MINUTE (04/28 855) SpO2: 98 % (04/28 855) O2 Delivery: None (Room Air) (04/28 855) Height: 162.6 cm (64") (04/27 1500) BP: (116-157)/(42-71) Temp: [36.6 C (97.9 F)-37.2 C (98.9 F)] Pulse: [66-81] Respirations: [16 PER MINUTE-18 PER MINUTE] SpO2: [97 %-100 %] O2 Delivery: [-] Intensity Pain Scale 0-10 (Pain 1): 9 (04/28/17 0855) Filed Vitals: 04/27/17 1500 Weight: 59.829 kg (131 lb 14.4 oz) Intake/Output Summary: (Last 24 hours) Intake/Output Summary (Last 24 hours) at 04/28/17 1234 Last data filed at 04/28/17 0900 Gross per 24 hour Intake 420 ml Output 0 ml Net 420 ml BVI (Bladder Scan)(mL): 217 milliliters (04/28/17 5835) Last BM Date: 04/27/17 Lab: Results for orders placed or performed during the hospital encounter of (from the past 24 hour(s)) POC GLUCOSE Collection Time: 04/27/17 5:08 PM # # Low-High Glucose, POC 129 (H) 70 - 100 MG/DL POC GLUCOSE Collection Time: 04/27/17 8:46 PM # # Low-High Glucose, POC 97 70 - 100 MG/DL CBC Collection Time: 04/28/17 6:58 AM # # Low-High White Blood Cells 4.4 (L) 4.5 - 11.0 K/UL RBC 2.05 (L) 4.0 - 5.0 M/UL Hemoglobin 7.4 (L) 12.0 - 15.0 GM/DL Hematocrit 21.1 (L) 36 - 45 % MCV 102.7 (H) 80 - 100 FL MCH 36.0 (H) 26 - 34 PG MCHC 35.1 32.0 - 36.0 G/DL RDW 19.0 (H) 11 - 15 % Platelet Count 69 (L) 150 - 400 K/UL MPV 7.5 7 - 11 FL BASIC METABOLIC PANEL Collection Time: 04/28/17 6:58 AM # # Low-High Sodium 134 (L) 137 - 147 MMOL/L Potassium 3.7 3.5 - 5.1 MMOL/L Chloride 103 98 - 110 MMOL/L CO2 29 21 - 30 MMOL/L Anion Gap 2 (L) 3 - 12 Glucose 102 (H) 70 - 100 MG/DL Blood Urea Nitrogen 21 7 - 25 MG/DL Creatinine 0.78 0.4 - 1.00 MG/DL Calcium 8.9 8.5 - 10.6 MG/DL eGFR Non >60 >60 mL/min eGFR >60 >60 mL/min TOTAL T3 (TRIIODOTHYRONINE) Collection Time: 04/28/17 6:58 AM # # Low-High T3 (Total) 56 (L) 87 - 180 NG/DL TSH WITH FREE T4 REFLEX Collection Time: 04/28/17 6:58 AM # # Low-High TSH 8.555 (H) 0.35 - 5.00 MCU/ML FREE T4-FREE THYROXINE Collection Time: 04/28/17 6:58 AM # # Low-High T4-Free 0.9 0.6 - 1.6 NG/DL POC GLUCOSE Collection Time: 04/28/17 8:57 AM # # Low-High Glucose, POC 149 (H) 70 - 100 MG/DL Physical Exam VS: BP 130/59 mmHg | Pulse 68 | Temp(Src) 37.1 C (98.7 F) | Ht 162.6 cm (64 ") | Wt 59.829 kg (131 lb 14.4 oz) | BMI 22.63 kg/m2 | SpO2 98% Gen: alert and conversant HEENT: Diffuse ecchymosis to L side of face; vision loss left eye CV: well perfused, distal pulses intact, RRR Pulm: breathing unlabored, normal effort, CTAB Abd: non-distended, soft, non-tender Skin: no obvious rashes or lesions on exposed surfaces Psych: Appropriate mood, normal affect Neuro: Mental Status: Alert and oriented Speech: fluent and clear, no evidence of aphasia or dysarthria Cognition: slowed processing speed, difficulty with multi-step directions Motor: full strength with the exception of pain limited strength in the proximal left lower limb Therapy Notes & Labs Reviewed. Damion Green DO Pager [phone] * Mary Almanzar RN - 04/28/2017 9:00 AM CDT Assumed care of pt. Bedside safety check and assessment complete. Will review and implement interventions. Pt c/o a headache at this time. RN to administer prn pain medication when needed and available. Pt to work with therapy today. Daughter at the bedside. Will continue to monitor. * Modesto Villareal - 04/27/2017 4:36 PM CDT Formatting of this note may be different from the original. RESPIRATORY THERAPY ADULT PROTOCOL EVALUATION RESPIRATORY PROTOCOL PLAN Medications Note: If indicated by protocol, medication orders will be placed by therapist. Procedures PEP Therapy: Place a nursing order for "IS Q1h While Awake" for any of Lung Expansion indicators PATIENT EVALUATION RESULTS Chart Review * Pulmonary Hx: No pulmonary diagnosis OR no smoking hx * Surgical Hx: General surgery (cough & sigh not affected) * Chest X-Ray: Clear OR not available * PFT/Oxygenation: FEV1, PEFR < 70% OR Pa02 < 70 RA OR Sp02 <92% RA OR Fi02 > 0.21 to keep Sp02 > 92% OR < 24 hours post-op (02 & oxim) OR chronic C02 retention (C02) Patient Assessment * Respiratory Pattern: Regular pattern and rate OR good chest excursion with deep breathing * Breath Sounds: Clear and able to auscultate bases posteriorly * Cough / Sputum: Good effective cough OR occasional or minimal sputum OR thin sputum * Mental Status: Alert, oriented, cooperative * Activity Level: Non-ambulatory (LE) Priority Index Total Points: 6 Points * Priority Index: Criteria not met PRIORITY INDEX GUIDELINES* Priority Points 1 0-9 points 2 9-18 points 3 > 18 points + Pulm Dx or Home Rx *Higher points indicate higher acuity. Therapist: Modesto Villareal Date: 04/27/2017 [place] AC=Airway clearance AM=Aerosolized medication BA=[place] aerosol DB&C=Deep breathe & cough FEV1=Forced expiratory volume in first second) IC=Inspiratory capacity LE=Lung expansion MDI=Metered dose inhaler Neb=Nebulizer O2=Oxygen Oxim=Oximetry PEFR=Peak expiratory flow rate KETTLE CHIPPER=Rapid Response Team * Lindsay Amaya RN - 04/27/2017 3:47 PM CDT Patient arrived to room # (1728) via wheelchair accompanied by transport. Patient transferred to the bed with assistance. Bedside safety checks completed. Initial patient assessment completed, refer to flowsheet for details. Admission skin assessment completed by: Pressure Injury Present: Yes 1. Occiput: No 2. Ear: No 3. Scapula: No 4. Spinous Process: No 5. Shoulder: No 6. Elbow: No 7. Iliac Crest: No 8. Sacrum/Coccyx: No 9. Ischial Tuberosity: No 10. Trochanter: No 11. Knee: No 12. Malleolus: No 13. Heel: No 14. Toes: No See Doc Flowsheet for additional wound details. INTERVENTIONS: Moisture management, Criticaid to bottom, turn Q2 Admission profile can not be completed at this time. Pt is non-slovenian speaking and speaks little Andorran. Pt's daughter, Sejal, should be arriving tonight and can translate for pt and pt's . Will pass onto oncoming shift. in this encounter H&P Notes * Ramirez Myers MD - 04/27/2017 3:08 PM CDT Formatting of this note may be different from the original. Physical Medicine & Rehabilitation Post-Admission Physician Evaluation Date of Service: 04/28/2017 Donna Wilde is a 61 y.o. female. : 1955 Insurance: Medicare Date of Admission: 04/27/2017 Hospital Course: . Donna Foss is a 61 year old female with a past medical history of HTN, HLD, DM, hypothyroidism and AML. Patient was transferred to [facility] from an outside hospital on 04-16-2017 after sustaining a fall at home hitting her head and having a positive loss of consciousness. Patient was found to have a suffered subsequent subarachnoid hemorrhage, right cerebellar stroke, T1 compression fracture and a left femur fracture. Patient is status post a cephalomedullary nailing on 04-19-2017. Patient has required a Corpack with tube feeds since admission due to concerns for dysphagia, but Corpack was removed on 04-26-2017 as patient continues to upgrade her diet. Patient admission complicated by a recent BMT history requiring frequent monitoring and medication management. Infectious Disease has been involved due to BMT history and concerns for atypical pneumonia requiring broad spectrum antibiotics. Patient has since been transitioned to oral Levaquin for 10 days. Patient has been working with physical and occupational therapy since 2016 and making some functional gains. Patient will likely return home at a supervised level of care for activities of daily living, functional transfers and ambulation. Patient has been working with speech therapy to address dysphagia, but has not had a formal cognitive evaluation and would benefit from one in order to determine baseline and address cognitive deficits. Rehab Diagnosis: Stroke/ Traumatic Brain Injury Relevant change since pre-admission screening: I have reviewed the pre- admission screening. There are no relevant changes. This patient meets medical necessity requiring the intensity of therapy available at the [facility]. The patient can participate in and can fully benefit from the services offered in the inpatient rehabilitation facility setting including 24 hour rehabilitation nursing, daily oversight from the Product Marketing Intern, and complex interdisciplinary rehab as noted below. 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 Patient is status post Flu/Hermila conditioning followed by MSD transplant. Recent biopsies show chronic remission and chimerism is 100% donor. Patient with previous aGvHD with skin and GI, now quiescent. Patient stopped prednisone 11-16-2016 with no flare. BMT will continue to follow and make additional recommendations as needed. 1. Hypothyroidism: Will continue to monitor and manage, as patient continues their home dose of Levothyroxine. 2. Diabetes: Patient's blood glucose has ranged from 97-201 over the past 24 hours and was on an insulin drip until 04-26-2017. Patient current taking a Novolog sliding scale five times daily and Lantus 10 units at bedtime. Patient may benefit from ongoing education from diabetes nurse educator for healthy lifestyle modifications. 3. Hyperlipidemia: Will continue to monitor and manage. 4. Hypertension: Patient's blood pressure over the past 24 hours has ranged from 116-125 / 42-54 . Patient currently has Propanolol ordered. Will continue to monitor and manage for optimal blood pressure control. Risk of Medical Complications: Neurology: Patient has suffered a diffuse subarachnoid hemorrhage and a right cerebellar stroke secondary to a fall at home. 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 Patient with sleep disturbance and delirium requiring Melatonin and Trazodone for treatment. 1. Musculoskeletal: Patient sustained a T11 compression fracture during her fall that has remained stable during this admission. Patient sustained an nondisplaced left intertrochanteric fracture and required surgery on 04-19-2017 for stabilization. She is stable and is currently taking Acetaminophen and Oxycodone as needed. 2. HEENT: Patient with facial abrasions due to the fall and is to utilize Bacitracin twice daily. Patient with left eye uveitis. Ophthalmology was consulted and recommended Maxitrol and Brimonidine. Patient will need to have a vitreus biopsy as an outpatient. Continue to monitor and manage as needed. 3. Infectious Disease: Atypical pneumonia, as chest xray on 04-16-2017 showed infiltrates with groundglass opacities for atypical pneumonia. She is status post a bronchoscopy. Patient was on broad spectrum antibiotics for treatment. Patient was CMV +/+ and needs weekly monitoring and is now negative as of 2016. Patient is on prophylactic Acyclovir. Patient to stop her Pentamidine 8-6- 2017 after her 12 month vaccination. ID will continue to monitor and co-manage. while on rehab. 4. Diabetes: Patient's blood glucose has ranged from 97-201 over the past 24 hours and was on an insulin drip until 04-26-2017. Patient current taking a Novolog sliding scale five times daily and Lantus 10 units at bedtime. Patient may benefit from ongoing education from diabetes nurse educator for healthy lifestyle modifications. 5. Hypertension: Patient's blood pressure over the past 24 hours has ranged from 116-125 / 42-54 . Patient currently has Propanolol ordered. Will continue to monitor and manage for optimal blood pressure control. Prior Level of Function Self-Care/ADLs: Patient was independent with all activities of daily living and functional transfers except for transitioning to a shower chair. Mobility: Patient ambulates with her walker and occasionally a cane. Work/Personal Responsibilities/Hobbies: Retired from a [employer] business. Shares homemaking tasks with her spouse. Home Environment: Home Situation: Lives with Family () (04/27/2017 1:00 PM) Patient Owned Equipment: Roller Walker;Manual Wheelchair;Single Point Cane (04/27 1:00 PM) Type of Home: House (04/27/2017 1:00 PM) Entry Stairs: Ramp (04/27/2017 1:00 PM) In-Home Stairs: No Stairs (04/27/2017 1:00 PM) Comments: Prior level of function obtained from patient's son. Patient's assisting with ADL and IADL. (04/23/2017 11:00 AM) Bathroom Equipment: Shower Chair (04/20/2017 2:00 PM) Support System: Daughter (Jocelynn - able to provide support as needed); Daughter (Sejal - able to provide support as needed); Spouse (Retired and able to provide 03/05) Current Level of Function Formal acute rehabilitation therapy evaluations are pending at this time. Per rehab nursing, the patient required assist to transfer into bed upon arrival to the rehabilitation unit. Upon my exam, the patient participated well in the strength exam. Rehabilitation Plan Patient will receive Physical therapy, Occupational therapy and Speech therapy each 60 minutes a day, 5 days a week for the duration of the rehabilitation stay within an interdisciplinary rehabilitation program with family service caseworker/ aids social worker, corporate meeting planner, neuropsychologist, rehab nursing and PM&R oversight. Rehabilitation Prognosis: Fair; complex rehab case, but hopeful that the patient will progress functionally after stroke/TBI/femur fracture Medical Prognosis: Fair; given the patient's oncologic diagnosis as discussed above, rehabilitation with functional improvement is vital to the patient's ability to progress and reduce infection risk; we do anticipate the patient will have clinical improvements to discharge home when functionally improved Tolerance for three hours of therapy a day: Fair, Patient has participated well with therapies which started on 04-17-2017 in the acute care setting and is anticipated to tolerate 3 hours of therapy per day, as required. Goals/Barriers/Facilitators Family / Patient Goals: To regain independence to help reduce burden of care. Mobility Goals: Chair/Bed transfers Supervision, Transfers Supervision, Wheelchair Supervision, Ambulation Supervision, Bed mobility Supervision and Physical Therapy will evaluate and treat ambulation/wheelchair use and bed transfers Activities of Daily Living (ADLs) Goals: Eating Supervision, Grooming Supervision, Bathing Supervision, Dressing - Upper Supervision, Dressing - Lower Supervision, Toileting Supervision, Toilet transfers Supervision, Tub / Shower transfer Supervision and Occupational therapy will evaluate and treat basic Activities of Daily Living Cognition / Communication Goals: Social interaction Supervision, Comprehension Supervision, Expression Supervision, Problem solving Supervision, Memory Supervision and Speech therapy will evaluate and treat cognition and communication deficits and assess for safe swallow Barriers & Interventions: 1. Caregiver Apprehension: Arrange caregiver support and discuss barriers and patient progress with caregivers when appropriate. 2. Functioning at Wheelchair Level: Adaptive equipment, create wide,/clear paths , home modifications, alternative transportation arrangements, vehicle modifications, pursue home ramp access, and remove home obstacles. 3. [place] of Care: Initiate interdisciplinary rehabilitation to improve functional independence and reduce burden of care. 4. Medication Education: Pharmacist and nursing staff to provide education to patient and family regarding medication side effects, special precautions, and safe administration. 5. Poor Strength / Endurance: Patient will continue to work with intense physical and occupational therapy to gain strength and endurance for a safe discharge to home. 6. Untreated Depression / Anxiety: Address mood and anxiety to transition patient safely home. Consult Neuropsychology to assess mood and aid in coping skills. 7. Wound Care Education: Nursing staff will provide education to the patient and family regarding proper wound care and monitoring for signs and symptoms of infection. Facilitators: good home setup, controlled pain, good family / social support, patient motivation, improving strength / endurance and improving medical condition Discharge Planning Expected Length of Stay: 14-21 day(s) Expected Discharge Disposition: Home Expected Discharge Needs: Patient will likely benefit from ongoing therapies at a home health level of care before transitioning to an outpatient or Day Program to continue to address her cognitive deficits. Patient currently owns a roller walker, shower chair, wheelchair and single point cane. Patient will not likely require any additional needs at discharge from rehab. The patient should reach their current goals by projected discharge date. Additional therapeutic disciplines may be included during this stay if indicated during interdisciplinary communication and will be noted in the daily progress notes when relevant. Social Work will address discharge planning needs. The patient will require physician supervision due to the medically complex problems described above. The patient was seen within 24 hours of admission to the inpatient rehabilitation unit. The patient was seen on 04/28/2017 at 0800 AM. Rehabilitation Medicine Attending Physician Attestation: I personally performed omalley portions of the history and exam. I discussed the case with the resident and concur with the resident's documentation of history, physical assessment and treatment plan unless otherwise noted. Labs, vitals, and imaging personally reviewed. box blank machine operator, Emy Valera, used for today's encounter. On exam, patient noted to have significant left facial ecchymosis and no functional vision out of left eye during monocular vision testing. Speech fluent and clear without aphasia or dysarthria but some linguistic impairment related to cognitive impairment and delayed processing speed. She had difficulty coordinating and motor planning complex tasks like finger to nose testing requiring several cues. Full strength in proximal and distal muscle groups in bilateral upper and lower limbs. She was oriented to exact date, location, and reason for hospitalization. Plan as below. However, will consult neurology for stroke risk factor modifications and management suggestions given subacute infarct noted in the right cerebellum noted on imaging. Patient denies a personal history of stroke or TIA, but does have risk factors including hypertension, hyperlipidemia, and diabetes mellitus. 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 Ramirez Myers MD Physical Medicine & Rehabilitation History & Physical Note Date of Service: 04/27/2017 Donna Wilde is a 61 y.o. female. 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 female admitted to [facility] on 04/27/2017 with the following issues: fracture - hip and traumatic brain injury Impairments: cognitive impairments, loss of coordination, pain, poor activity tolerance and vision loss Activity Limitations: bathing, dressing - upper, dressing - lower, toileting, transfers, ambulation, stairs, comprehension, problem solving and memory Participation Restrictions: unable to return home safely Rehabilitation Plan Patient will receive Physical therapy, Occupational therapy and Speech therapy each 60 minutes a day, 5 days a week for the duration of the rehabilitation stay within an interdisciplinary rehabilitation program with family service caseworker/ aids social worker, corporate meeting planner, neuropsychologist, rehab nursing and PM&R oversight. Rehabilitation Prognosis: Fair; complex rehab case, but hopeful that the patient will progress functionally after stroke/TBI/femur fracture Medical Prognosis: Fair; given the patient's oncologic diagnosis as discussed above, rehabilitation with functional improvement is vital to the patient's ability to progress and reduce infection risk; we do anticipate the patient will have clinical improvements to discharge home when functionally improved Tolerance for three hours of therapy a day: Fair, Patient has participated well with therapies which started on 04-17-2017 in the acute care setting and is anticipated to tolerate 3 hours of therapy per day, as required. Goals/Barriers/Facilitators Family / Patient Goals: To regain independence to help reduce burden of care. Mobility Goals: Chair/Bed transfers Supervision, Transfers Supervision, Wheelchair Supervision, Ambulation Supervision, Bed mobility Supervision and Physical Therapy will evaluate and treat ambulation/wheelchair use and bed transfers Activities of Daily Living (ADLs) Goals: Eating Supervision, Grooming Supervision, Bathing Supervision, Dressing - Upper Supervision, Dressing - Lower Supervision, Toileting Supervision, Toilet transfers Supervision, Tub / Shower transfer Supervision and Occupational therapy will evaluate and treat basic Activities of Daily Living Cognition / Communication Goals: Social interaction Supervision, Comprehension Supervision, Expression Supervision, Problem solving Supervision, Memory Supervision and Speech therapy will evaluate and treat cognition and communication deficits and assess for safe swallow Barriers & Interventions: 8. Caregiver Apprehension: Arrange caregiver support and discuss barriers and patient progress with caregivers when appropriate. 9. Functioning at Wheelchair Level: Adaptive equipment, create wide,/clear paths , home modifications, alternative transportation arrangements, vehicle modifications, pursue home ramp access, and remove home obstacles. 10. [place] of Care: Initiate interdisciplinary rehabilitation to improve functional independence and reduce burden of care. 11. Medication Education: Pharmacist and nursing staff to provide education to patient and family regarding medication side effects, special precautions, and safe administration. 12. Poor Strength / Endurance: Patient will continue to work with intense physical and occupational therapy to gain strength and endurance for a safe discharge to home. 13. Untreated Depression / Anxiety: Address mood and anxiety to transition patient safely home. Consult Neuropsychology to assess mood and aid in coping skills. 14. Wound Care Education: Nursing staff will provide education to the patient and family regarding proper wound care and monitoring for signs and symptoms of infection. Facilitators: good home setup, controlled pain, good family / social support, patient motivation, improving strength / endurance and improving medical condition Current Medical Problems/Risks of Medical Complications/Management Hospital problems and plan: Mrs.Bernal Wilde is a 61 y/o female PMHx of HTN, HLD, DM, hypothyroidism and AML admitted to [facility] after fall at home and subsequently suffering from SAH, left femur fracture s/p cephalo medullary nail. Traumatic Subarachnoid hemorrhage -s/p fall at home with + LOC -CT head 04/16: Moderate subarachnoid hemorrhage scattered throughout the bilateral hemispheric sulci >Continue propranolol 20mg TID for neuro storming, will wean as tolerated -no reports of agitation -speech therapy for cognitive eval and remediation -monitor for sleep and mood disturbance Right cerebellar stroke -CT head: Unchanged low-attenuation within the right superior cerebellum, again suggestive of acute to subacute infarct in the superior cerebellar artery territory -Neuro surgery: stroke appears chronic as already dark >Consider neurology consult for risk prevention given pt not on statin or aspirin 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 -Patient is status post Flu/Hermila conditioning followed by MSD transplant -Recent biopsies show chronic remission and chimerism is 100% donor -Patient with previous aGvHD with skin and GI, now quiescent >BMT to follow and make additional recommendations as needed Musculoskeletal -T11 compression fracture during her fall that has remained stable during this admission -displaced left intertrochanteric femur fracture and required surgery on 2016 for stabilization -Currently WBAT for LLE >Pain control per below Atypical pneumonia -chest xray on 04-16-2017 showed infiltrates with groundglass opacities for atypical pneumonia -Patient was CMV +/+ and needs weekly monitoring and is now negative as of 2016 >Prophylactic acyclovir BID >Continue levaquin to complete 10 day course on 04/29/17 Panuveitis and NAOIN, vision loss, left eye -Optho consulted while inpatient -Continue brimonidine and maxitrol -Will need vitreus biopsy as outpatient -She has no light perception in the left eye, since early 03/2017 DM -Endo following -Currently on lantus 10U and 4U aspart w/meals Hypothyroid -Synthroid 50mcg >Will obtain TSH free T4 and total T3 per endo recs HTN -Propranolol per above Pain Management: oxycodone 5mg Q3H Skin: Nurse and therapists will teach the patient and / or family skin inspection and pressure sore prevention. Bowel: Implement bowel protocol Bladder: BVIs x3 until <125ml and ISC for >300ml Nutrition: Regular diet Mental Health: consult neuropsychology to provide support / counseling DVT Prophylaxis: SCD} History of Present Illness Hospital Course: Donna Foss is a 61 year old female with a past medical history of HTN , HLD, DM, hypothyroidism and AML. Patient was transferred to [facility] from an outside hospital on 04-16-2017 after sustaining a fall at home hitting her head and having a positive loss of consciousness. Patient was found to have a suffered subsequent subarachnoid hemorrhage, right cerebellar stroke, T1 compression fracture and a left femur fracture. Patient is status post a cephalomedullary nailing on 04-19-2017. Patient has required a Corpack with tube feeds since admission due to concerns for dysphagia, but Corpack was removed on 04-26-2017 as patient continues to upgrade her diet. Patient admission complicated by a recent BMT history requiring frequent monitoring and medication management. Infectious Disease has been involved due to BMT history and concerns for atypical pneumonia requiring broad spectrum antibiotics. Patient has since been transitioned to oral Levaquin for 10 days. Patient has been working with physical and occupational therapy since 2016 and making some functional gains. Patient will likely return home at a supervised level of care for activities of daily living, functional transfers and ambulation. Patient has been working with speech therapy to address dysphagia, but has not had a formal cognitive evaluation and would benefit from one in order to determine baseline and address cognitive deficits. When seen pt's in room and translated. Pt's stated that pt has been less confused over the past ~2 days. Pt was oriented to self, place, month/ year but not date when seen. Pt endorsed L sided face pain, no other complaints when seen. Pt denied nausea, vomiting, chest pain, sob, fever, chills. Past Medical History Past Medical History Diagnosis Date DM2 (diabetes mellitus, type 2) (HCC) HLD (hyperlipidemia) Overweight (BMI 25.0-29.9) Thyroid disorder Leukemia (HCC) HTN (hypertension) Cancer (HCC) Past Surgical History Past Surgical History Procedure Laterality Date section, low transverse Pr sigmoidoscopy flx dx w/collj spec br/wa if pfrmd N/A 04/14/2016 SIGMOIDOSCOPY DIAGNOSTIC performed by Shane Lynn MD at ENDO[facility]GI Upper gastrointestinal endoscopy N/A 04/14/2016 ESOPHAGOGASTRODUODENOSCOPY performed by Shane Lynn MD at ENDO/GI Upper gastrointestinal endoscopy N/A 04/14/2016 ESOPHAGOGASTRODUODENOSCOPY BIOPSY performed by Shane Lynn MD at ENDO[facility]GI Colonoscopy N/A 04/14/2016 COLONOSCOPY BIOPSY performed by Shane Lynn MD at [facility]GI Pr sigmoidoscopy flx dx w/collj spec br/wa if pfrmd N/A 07/29/2016 SIGMOIDOSCOPY DIAGNOSTIC performed by Niharika Lam MD at ENDO[facility]GI Upper gastrointestinal endoscopy N/A 07/29/2016 ESOPHAGOGASTRODUODENOSCOPY performed by Niharika Lam MD at END[facility]GI Pr esophagogastroduodenoscopy transoral diagnostic N/A 09/09/2016 ESOPHAGOGASTRODUODENOSCOPY performed by Hermila Cornejo MD at ENDO[facility]GI Pr sigmoidoscopy flx dx w/collj spec br/wa if pfrmd N/A 09/09/2016 SIGMOIDOSCOPY DIAGNOSTIC performed by Hermila Cornejo MD at [facility]GI Pr sigmoidoscopy flx w/biopsy single/multiple 09/09/2016 SIGMOIDOSCOPY BIOPSY performed by Hermila Cornejo MD at ENDO[facility]GI Pr proph tx n/p/pltwr w/wo methylmethacrylate femur Left 04/19/2017 INSERTION CEPHALOMEDULLARY NAIL FEMUR performed by Shane Sam MD at Main OR /Periop Family\\Social History Social History Social History Marital Status: Spouse Name: Armen Number of Children: 8 Years of Education: N/A 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 Social History Main Topics Smoking status: Never Smoker Smokeless tobacco: Never Used Alcohol Use: No Drug Use: No Sexual Activity: Not Currently Other Topics Concern Not on file Social History Narrative Family history reviewed; non-contributory Medications: Scheduled Meds: acyclovir (ZOVIRAX) tablet 800 mg 800 mg Oral BID bacitracin topical ointment Topical BID brimonidine (ALPHAGAN P) 0.15 % ophthalmic solution 1 Drop 1 Drop Left Eye TID carboxymethylcellulose (REFRESH PLUS) 0.5 % ophthalmic solution 1 Drop 1 Drop Both Eyes QID ergocalciferol (VITAMIN D-2) capsule 50,000 Units 50,000 Units Oral Once per day on Wed ferrous sulfate (FEOSOL, FEROSUL) tablet 325 mg 325 mg Oral TID w/ meals insulin aspart (NOVOLOG FLEXPEN) injection PEN 0-7 Units 0-7 Units Subcutaneous 5 X Day insulin glargine (LANTUS SOLOSTAR) injection PEN 10 Units 10 Units Subcutaneous QDAY(10) levoFLOXacin (LEVAQUIN) tablet 750 mg 750 mg Oral Q24H* levothyroxine (SYNTHROID) tablet 50 mcg 50 mcg Oral QDAY(07) magnesium oxide (MAG-OX) tablet 400 mg 400 mg Per [place] Tube BID melatonin tablet 3 mg 3 mg Oral QHS neomycin/polymyxin/dexamethasone (MAXITROL) ophthalmic suspension 1 Drop 1 Drop Left Eye BID polyethylene glycol 3350 (MIRALAX) packet 17 g 1 Packet Per [place] Tube QDAY propranolol (INDERAL) tablet 20 mg 20 mg Oral TID risperiDONE (RISPERDAL) tablet 0.5 mg 0.5 mg Oral QHS senna/docusate (SENOKOT-S) tablet 1 Tab 1 Tab Oral BID traZODone (DESYREL) tablet 25 mg 25 mg Oral QHS Continuous Infusions: PRN and Respiratory Meds:acetaminophen Q4H PRN, alum/mag hydroxide/simeth Q4H PRN, ondansetron Q6H PRN, oxyCODONE Q3H PRN Allergies: No Known Allergies Prior Level of Function Self-Care/ADLs: Patient was independent with all activities of daily living and functional transfers except for transitioning to a shower chair. Mobility: Patient ambulates with her walker and occasionally a cane. Work/Personal Responsibilities/Hobbies: Retired from a [employer] business. Shares homemaking tasks with her spouse. Home Environment: Home Situation: Lives with Family () (04/27/2017 1:00 PM) Patient Owned Equipment: Roller Walker;Manual Wheelchair;Single Point Cane (04/27 1:00 PM) Type of Home: House (04/27/2017 1:00 PM) Entry Stairs: Ramp (04/27/2017 1:00 PM) In-Home Stairs: No Stairs (04/27/2017 1:00 PM) Comments: Prior level of function obtained from patient's son. Patient's assisting with ADL and IADL. (04/23/2017 11:00 AM) Bathroom Equipment: Shower Chair (04/20/2017 2:00 PM) Support System: Daughter (Jocelynn - able to provide support as needed); Daughter (Sejal - able to provide support as Current Level of Function Physical Therapy 04-27-2017: Bed Mobility: Supine to Sit: Minimal Assist;Head of Bed Elevated;Use of Rail; Verbal Cues Transfer Type: Sit to/from Stand Transfer: Assistance Level: To/From;Bed;Bed Side Chair;Moderate Assist;x2 People Transfer: Assistive Device: Roller Walker Transfers: Type Of Assistance: Left Knee Blocked;Elevated Bed;Verbal Cues;For Safety Considerations;For Strength Deficit Demonstrates proximal weakness during sit to stand transition, requiring assist at hips as well as left knee blocked. Verbal cues for hand placement and sequencing of transfer needed again this date. Other Transfer Type: Stand Pivot Other Transfer: Assistance Level: From;Bed;To;Bed Side Chair;Moderate Assist;of 1st person;Minimal Assist;of 2nd person Other Transfer: Assistive Device: Roller Walker Other Transfer: Type Of Assistance: Verbal Cues;Knees(s) Blocked End Of Activity Status: Up in Chair;Nursing Notified;Instructed Patient to Request Assist with Mobility;Instructed Patient to Use Call Light (chair alarm activated) Comments: Instructed patient to sit in bedside chair x 45 minutes today. Patient, RN, and spouse all in agreement. Occupational Therapy 04-26-2017: ADL's Where Assessed: Chair Eating Assist: Stand By Assist Eating Deficits: Setup;Thickened Liquids;Pureed Diet LE Dressing Assist: Total Assist LE Dressing Deficits: Don/Doff R Sock;Don/Doff L Sock Toileting Assist: Total Assist Toileting Deficits: Perineal Hygiene (incont of BM prior to oob. Changed brief & hygiene) Functional Transfer Assist: Minimal Assist (x2 to EOB, going to R side.) Functional Transfer Deficits: (squat pivot bed to chair with max assist of 1) Comment: Pt had urinated and incont of BM with brief. Pt reports she can tell when she goes but is "embarrassed to have someone clean me". Educated pt to call Rn when urge is present. Initiation is a defeciet at this time. Pt transferred to chair with squat pivot with max assist. Pt set up for feeding while in chair. Activity Tolerance Sitting Balance: 2+/5 Supports Self w/ 1 UE Cognition Overall Cognitive Status: Confused Expression: Language Barrier Social Interaction: WFL Adequate to Solve Routine Tasks Problem Solving: Cueing to Sequence Task Orientation: Alert & Oriented x3;To Person;To Time;To Situation (stated hospital but not able to recall name of hospital) Attention: Awake/Alert Cognition Comment: Pt reports headache. Pt with initiation defecits. Follows commands. Speech Therapy 04-27-2017: EVALUATION SUMMARY Videoswallow Summary*: Videoswallow study completed. Pt presents with normal oropharygneal swallow. No penetration nor aspiration noted on study. Phone box blank machine operator #[phone] as well as in person sports complex attendant Esteban Saleh. Pt's spouse also present. Oral Stage Summary*: Oral stage WFL. Withdraw, formation and transfer of all presented consistencies WFL. No early spillover observed. No anterior loss of bolus nor significant oral residue following swallows. Pharyngeal Stage Summary*: Pharyngeal stage WFL. Pt demonstrating timely as well as complete airway closure at level of true and false vocal cords. Epiglottic inversion noted with adequate anterior and superior hyolaryngeal movement. Adequate duration and distension of UES opening. No pharyngeal retention noted following swallows as noted good base of tongue retraction and pharyngeal constriction. Swallow Recommendations* PO: Regular, Thin Liquids Plan*: Pt may benefit from formal cognitive evaluation at next level of care, however, family reports pt is near baseline cognitive functioning. Prognosis*: Good NOMS Dysphagia Rating*: 7-Normal -Ability to eat indep not limited by swallow function. Swallow safe/efficient for all consistencies. Compensatory strategies effectively used when needed. Penetration Aspiration Scale*: 1 - Material does not enter laryngeal vestibule Review of Systems A 10 point review of systems was negative except as in HPI and for: Ears, nose, mouth, throat, and face: positive for facial trauma Physical Exam BP: 150/59 mmHg (04/27 1123) Temp: 37 C (98.6 F) (04/27 112) Pulse: 68 (04/27 1300) Respirations: 16 PER MINUTE (04/27 112) SpO2: 100 % (04/27 1123) O2 Delivery: None (Room Air) (04/27 112) SpO2 Pulse: 74 (04/27 0339) There is no weight on file to calculate BMI. Gen: Sleepy, NAD HEENT: Diffuse ecchymosis to L side of face, no vision left eye CV: well perfused, distal pulses intact Pulm: breathing unlabored, normal effort Abd: nondistended Extremities: No edema. Skin: no obvious rashes or lesions on exposed surfaces Psych: Appropriate mood, normal affect Neuro/MSK: MS: Root Right Left Shoulder Abduction C5 5 5 Elbow Flexion C5 5 5 Elbow Extension C7 5 5 Wrist Extension C6 5 5 Finger Flexion C8 5 5 Finger Abduction T1 5 5 Hip Flexion L2 4+ NT* Knee Flexion L5/S1 4+ NT* Knee Extension L3 5 NT* Dorsiflexion L4 5 5 Plantarflexion S1 5 5 EHL Extension L5 5 5 *secondary to pain Neuro: Cranial Nerves CN's 3,4, and 6 normal. Normal tongue protrusion and symmetric smile. DTR's 2+ throughout Babinski Plantar Reflex is Downgoing Bilaterally Reza Normal Finger to Nose Patient had difficulty following directions to complete testing Heel to Graham Normal Upper Extremity Tone Normal Lower Extremity Tone Normal Upper Extremity Sensation Intact to light touch bilaterally Lower Extremity Sensation Intact to light touch bilaterally Clonus Negative Bilaterally Proprioception Intact Bilaterally Memory/Cognition/Speech Oriented to person, place, year/month but not day; speech fluent and clear Intake/Output Summary: Intake/Output Summary (Last 24 hours) at 04/27/17 1509 Last data filed at 04/27/17 0734 Gross per 24 hour Intake 0 ml Output 0 ml Net 0 ml Stool Occurrence: 1 (04/27/2017 2:22 PM) Last BM Date: 04/27/17 (04/27/2017 8:20 AM) BVI (Bladder Scan)(mL): 10 milliliters (10/02/2016 12:26 PM) No Data Recorded Bowel Accident: 1 (02/23/2017 11:06 AM) Bladder Accident: 1 (02/17/2017 3:41 PM) Oral Diet Order: Pureed (04/26/2017 2:00 PM) Basic Metabolic Profile Lab Results Component Value Date/Time SODIUM 138 04/26/2017 04:58 AM POTASSIUM 4.1 04/26/2017 04:58 AM CALCIUM 9.2 04/26/2017 04:58 AM CHLORIDE 105 04/26/2017 04:58 AM CO2 30 04/26/2017 04:58 AM Lab Results Component Value Date/Time BLOOD UREA NITROGEN 24 04/26/2017 04:58 AM CREATININE 0.70 04/26/2017 04:58 AM GLUCOSE 132* 04/26/2017 04:58 AM CBC w/Diff Lab Results Component Value Date/Time WHITE BLOOD CELLS 4.3* 04/27/2017 04:43 AM RBC 2.01* 04/27/2017 04:43 AM HEMOGLOBIN 7.3* 04/27/2017 04:43 AM HEMATOCRIT 20.5* 04/27/2017 04:43 AM MCV 101.8* 04/27/2017 04:43 AM MCH 36.1* 04/27/2017 04:43 AM RDW 18.6* 04/27/2017 04:43 AM PLATELET COUNT 53* 04/27/2017 04:43 AM MPV 7.6 04/27/2017 04:43 AM Lab Results Component Value Date/Time NEUTROPHILS 50 04/22/2017 04:41 AM ABSOLUTE NEUTROPHIL COUNT 1.90 04/22/2017 04:41 AM LYMPHOCYTES 31 04/22/2017 04:41 AM ABSOLUTE LYMPH COUNT 1.20 04/22/2017 04:41 AM MONOCYTES 16* 04/22/2017 04:41 AM ABSOLUTE MONOCYTE COUNT 0.60 04/22/2017 04:41 AM EOSINOPHILS 3 04/22/2017 04:41 AM ABSOLUTE EOSINOPHIL COUNT 0.10 04/22/2017 04:41 AM BASOPHILS 0 04/22/2017 04:41 AM ABSOLUTE BASOPHIL COUNT 0.00 04/22/2017 04:41 AM Radiology: Pertinent radiology reviewed Head CT 04/18/2017: IMPRESSION 1. No significant change in scattered moderate [...] hypodense subdural collection suggestive of subdural hygroma. in this encounter Consult Notes * Kirill Christine MD - 04/30/2017 1:28 PM CDT Associated Order(s): CONSULT INFECTIOUS DISEASES PHYSICIAN Formatting of this note may be different from the original. Infectious Diseases Initial Consult Today's Date: 04/30/2017 Admission Date: 04/27/2017 Reason for this consultation: I was asked to provide my opinion recommendations regarding this 61-year-old woman who was recently in the hospital after a fall with subarachnoid hemorrhage possible stroke she will stem cell transplant now she had an MRI done at the rehab he had showed cerebellar lesion and multiple also small lesions off the cerebellum and brainstem and midbrain I reviewed and summarized the patient old record, I reviewed her microbiology data there were extensive, I personally reviewed the MRI of the brain from 2016 and discussed the recommendations with the rehab resident. Assessment: Right cerebellar lesion and numerous additional smaller enhancing bilateral cerebellar basal nuclei and brainstem lesions with some associated edema suggestive of possible opportunistic infection this was found on MRI from 2016 Note that she recently had CT scans done on her head on 04/16 and 04/18/2017 and at that time showed the cerebral bleeding as below and also a possible cerebellar infarct Left eye panuveitis, vision loss - Ophtho consulted - plan for vitreous biopsy as was originally planned at outpatient - Eyedrops per ophtho S/p recent fall Left intertrochanteric femur fracture Subarachnoid hemorrhage, diffuse Right cerebellar CVA - s/p operative fixation of the L femur fracture 04/19 - Neurosurgery following Fever - resolved Recent S. 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 Pancytopenia Diarrhea - C diff negative Delirium - Likely multifactorial - SAH, age comorbidities, ICU delirium -resolved Other chronic conditions: DM Recommendations: I agree that the patient brain lesions on the MRI are worrisome for opportunistic infection versus tumor, in addition she has had left eye lesions over the last month and 1/2-2 months and has been following and after with ophthalmology with the plan of vitreous biopsy but this has not been done because of the recent admission and complications It is very possible that I lesions and the brain lesions are caused by the same process which could be infectious note that she recently had LP done on 04/12 and had negative toxoplasma PCR and negative bacteria culture her CSF showed mild lymphocytic pleocytosis It is very possible the patient has cerebral toxoplasmosis despite the negative PCR but this could be also any number of other opportunistic infection of the brain. I feel that we need to get a tissue diagnosis at this time because the differential diagnosis is very fast may consider vitreous biopsy and this could be the least invasive versus brain biopsy. I recommend consulting both ophthalmology and neurosurgery to look at the case it seems that this is not acute this is more of a subacute issue as she has been losing her left eye vision for the last 1-1/2-2 months per patient and her . If the patient decompensates meanwhile we will need to start her on broad- spectrum antibiotic with meropenem and vancomycin. Repeating LP may not be of much utility as she just recently had an LP on 04/12 We could consider starting her empirically on toxoplasma treatment but again the differential is vast and we will not be able to see improvement on the MRI for about 2 weeks if in fact this is toxoplasma. We will go ahead and check toxoplasma serology also Note that he recently had fungal workup including cryptococcus histoplasma and coccidiomycosis workup and that was negative in addition to galactomannan and fungitell Please reconsult ID when patient is readmitted to the hospital History of Present Illness Donna Wilde is a 61 y.o. 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 She has had multiple complications at that time including E. coli bacteremia and aspiration. 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 Noted that the patient was doing okay after she left the hospital breathing was fine that over the last 2 months she has had a gradual decrease in the vision of the left eye and over the last month or so she has not been able to see in her left eye at all. The vision in the right eye is stable it is slightly blurry but not changed from from baseline She saw ophthalmology and they saw some IV lesions this was toward the end of March and they suspected either tumor invasion or infection they did LP on showed only 11 white blood cells mostly lymphocytes and toxoplasma PCR was negative and there was no evidence of leukemia cells the day after that I believe she fell and that she was brought to the hospital and she was found to have subarachnoid hemorrhage and brain bleed as per my impression. Note that also I believe the week before that she fell another time. and she was weak for about a week she was not having any fever or chills additional night sweats at home. Per there was no sign that she tripped on anything and they he think that her legs gave out on her. She had a fever in the hospital here I think on several occasions and gradually resolved she received antibiotic and the antibiotic will taper down to levofloxacin she continued the levofloxacin until 04/29/2017 She was also found to have left femoral fracture and she underwent nailing of the left femur and the wound is doing okay she continued to have some pain they are mostly when she moves its moderate but is tolerable and controlled with medication She was complaining of a lot of confusion and delirium in the hospital but this has resolved and she has not been delirious for the last 5 days or so. She was transferred to rehab for further rehab but apparently the rehab physician looked at the CT scan and decided to consult neurology on her neurology recommended MRI and that is how the brain lesions were found. She has been feeling okay at rehab and get a rehab she denies any more confusion and her agrees with and I interviewed the patient with the help of a box blank machine operator. She denies any headache at this time she denies any change in the right eye vision she denies nausea vomiting she has been having mild diarrhea but none today she denies any abdominal pain or chest pain or significant cough. The bruises around left eye about the same she denies any new skin lesions. She denies any dysuria. Left hip wound is healed with no drainage. She has mild edema of the left leg. She is weak on the left side also. I reviewed her laboratory data showed thrombocytopenia with low platelet hemoglobin and slightly low white blood cell which is about the same lately. Her creatinine has been stable. Antimicrobial Start date End date Estimated Creatinine Clearance: 65.7 mL/min (based on Cr of 0.86). Past Medical History Past Medical History: Diagnosis Date Cancer (HCC) DM2 (diabetes mellitus, type 2) (HCC) HLD (hyperlipidemia) HTN (hypertension) Leukemia (HCC) Overweight (BMI 25.0-29.9) Thyroid disorder Past Surgical History Past Surgical History: Procedure Laterality Date SECTION, LOW TRANSVERSE COLONOSCOPY N/A 04/14/2016 COLONOSCOPY BIOPSY performed by Shane Lynn MD at [facility] MD ESOPHAGOGASTRODUODENOSCOPY TRANSORAL DIAGNOSTIC N/A 09/09/2016 ESOPHAGOGASTRODUODENOSCOPY performed by Hermila Cornejo MD at [facility]GI MD PROPH TX N/P/PLTWR W/WO METHYLMETHACRYLATE FEMUR Left 04/19/2017 INSERTION CEPHALOMEDULLARY NAIL FEMUR performed by Shane Sam MD at [facility]/ [facility]iop MD SIGMOIDOSCOPY FLX DX W/COLLJ SPEC BR/WA IF PFRMD N/A 04/14/2016 SIGMOIDOSCOPY DIAGNOSTIC performed by Shane Lynn MD at [facility] MD SIGMOIDOSCOPY FLX DX W/COLLJ SPEC BR/WA IF PFRMD N/A 07/29/2016 SIGMOIDOSCOPY DIAGNOSTIC performed by Niharika Lam MD at [facility] MD SIGMOIDOSCOPY FLX DX W/COLLJ SPEC BR/WA IF PFRMD N/A 09/09/2016 SIGMOIDOSCOPY DIAGNOSTIC performed by Hermila Cornejo MD at [facility]GI MD SIGMOIDOSCOPY FLX W/BIOPSY SINGLE/MULTIPLE 09/09/2016 SIGMOIDOSCOPY BIOPSY performed by Hermila Cornejo MD at [facility] UPPER GASTROINTESTINAL ENDOSCOPY N/A 04/14/2016 ESOPHAGOGASTRODUODENOSCOPY performed by Shane Lynn MD at [facility]GI UPPER GASTROINTESTINAL ENDOSCOPY N/A 04/14/2016 ESOPHAGOGASTRODUODENOSCOPY BIOPSY performed by Shane Lynn MD at [facility]GI UPPER GASTROINTESTINAL ENDOSCOPY N/A 07/29/2016 ESOPHAGOGASTRODUODENOSCOPY performed by Niharika Lam MD at ENDO/GI Social History She denies any TB exposure in the past Social History Substance Use Topics Smoking status: [...] of systems was negative with exception of: Weakness, bruises left eye, left eye vision loss Some diarrhea Left hip fracture and some swelling and pain in the left hip after surgery No nausea vomiting No cough or shortness of breath No dysuria Appetite is fair A complete 12 point review of system was taken rest is negative Medications Scheduled Meds: acyclovir (ZOVIRAX) tablet 800 mg 800 mg Oral BID bacitracin topical ointment Topical QDAY brimonidine (ALPHAGAN P) 0.15 % ophthalmic solution 1 Drop 1 Drop Left Eye TID carboxymethylcellulose (REFRESH PLUS) 0.5 % ophthalmic solution 1 Drop 1 Drop Both Eyes QID cholecalciferol (VITAMIN D-3) tablet 800 Units 800 Units Oral QDAY docusate (COLACE) capsule 100 mg 100 mg Oral BID ferrous sulfate (FEOSOL, FEROSUL) tablet 325 mg 325 mg Oral TID w/ meals insulin aspart (NOVOLOG FLEXPEN) injection PEN 0-7 Units 0-7 Units Subcutaneous TID w/ meals insulin aspart (NOVOLOG FLEXPEN) injection PEN 3 Units 3 Units Subcutaneous TID w/ meals insulin glargine (LANTUS SOLOSTAR) injection PEN 8 Units 8 Units Subcutaneous QDAY(12) levothyroxine (SYNTHROID) tablet 50 mcg 50 mcg Oral QDAY 30 min before breakfast magnesium oxide (MAG-OX) tablet 400 mg 400 mg Oral BID melatonin tablet 3 mg 3 mg Oral QHS neomycin/polymyxin/dexamethasone (MAXITROL) ophthalmic suspension 1 Drop 1 Drop Left Eye TID propranolol (INDERAL) tablet 10 mg 10 mg Oral TID senna (SENOKOT) tablet 2 Tab 2 Tab Oral QHS Continuous Infusions: PRN and Respiratory Meds:acetaminophen Q4H PRN, aluminum/magnesium hydroxide Q4H PRN, milk of magnesia (CONC) Q4H PRN, oxyCODONE Q3H PRN Physical Examination Vital Signs: Last Vital Signs: 24 Hour Range BP: 121/54 (04/30 519) Temp: 36.8 C (98.2 F) (04/30 519) Pulse: 68 (04/30 519) Respirations: 18 PER MINUTE (04/30 519) SpO2: 97 % (04/30 519) O2 Delivery: None (Room Air) (04/30 519) BP: (121-134)/(54-63) Temp: [36.3 C (97.4 F)-36.8 C (98.2 F)] Pulse: [64-72] Respirations: [16 PER MINUTE-18 PER MINUTE] SpO2: [97 %-100 %] O2 Delivery: None (Room Air) Gen: alert oriented x 3, NAD. HEENT: Left face with old bruising s/p fall, improved Neck supple no adenopathy Axillary no adenopathy Chest: CTAB, nonlabored. CV: Regular rate, 2/6 systolic murmur, no peripheral edema Abd: soft, no tenderness, normal bowel sounds Inguinal no adenopathy Ext: No c/c/e, no joint tenderness, left thigh wound dressing, minimal swelling no erythema, no drainage Skin: No rashes, warm, dry Psych: Calm, cooperative Lab Review Hematology Recent Labs 04/28/17 0658 04/29/17 0735 04/30/17 0800 WBC 4.4* 4.6 4.7 HGB 7.4* 7.9* 7.5* HCT 21.1* 23.1* 22.1* PLTCT 69* 78* 83* Chemistry Recent Labs 04/28/17 0658 04/29/17 0735 04/30/17 0800 NA 134* 137 136* K 3.7 3.9 4.1 CL 103 106 107 CO2 29 25 24 BUN 21 23 22 CR 0.78 0.77 0.86 GFR >60 >60 >60 GLU 102* 82 77 CA 8.9 8.9 9.2 Microbiology, Radiology and other Diagnostics Review Microbiology data reviewed. Pertinent radiology images viewed. Impression: Kirill Christine MD Pager [phone] Infectious Diseases Faculty * Tahmina Foote, PhD - 04/28/2017 4:41 PM CDT Associated Order(s): CONSULT NEUROREHABILITATION PSYCHOLOGY 11:17-12:15 Met with patient c/s for initial evaluation. A box blank machine operator was present with pt's permission. Pt's daughter joined our session for the final 10 minutes with pt's permission. Dx: F33.0 Major depressive disorder, recurrent, mild; F41.1 Generalized anxiety disorder; R41.89 Cognitive impairment Requesting Physician: Zee Reason for Request: Coping and cognition Relevant History: The following history was taken from available medical records unless otherwise indicated. Pt is a 61yo RH Belarusian speaking female with a PMHx of AML s/p MSD transplant who was transferred to [facility] from [facility] on 04-16-2017 after sustaining a fall at home hitting her head with +LOC. She was found to have a suffered a subarachnoid hemorrhage, right cerebellar stroke, T1 compression fracture and a left femur fracture. Pt is status post cephalomedullary nailing on 04-19-2017. She required a Corpack with tube feeds since admission due to concerns for dysphagia, but Corpack was removed on 2016 as patient continues to upgrade her diet. Her admission also was complicated by a recent BMT history requiring frequent monitoring and medication management. Infectious Disease has been involved due to BMT history and concerns for atypical pneumonia requiring broad spectrum antibiotics. Patient has since been transitioned to oral Levaquin for 10 days. Once medically stable, pt was transferred to inpatient rehab on 04/27/17 for continued acute medical management, nursing cares, and comprehensive therapies. Of note, pt is known to this service from previous admission in September,. Medical/Surgical History: DMII; HTN; HLD; hypothyroidism; AML s/p MSD transplant ; HTN; Sigmoidoscopy, diagnostic; Upper GI endoscopy; Colonoscopy Family Medical History: DMII; HTN Social/Vocational History: Pt reported that she lives with her in [facility], said he is her primary caregiver. She also stated that her two daughters could provide intermittent assistance. She has 8 children and 14 grandchildren. Her 2 daughters live nearby, and her other 6 children live in different states. Pt attended 4 years of schooling in [employer] and stated that she has always struggled with reading, writing, and math. 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 She does not drive. Pt did not endorse alcohol, nicotine, or illicit drug use. In terms of psychiatric hx, pt endorsed a hx of anxiety and depression. She said her anxiety started when her children grew up and moved out of her house, and her depression started after her cancer diagnosis. Pt described that she frequently worries about her children, and since her cancer diagnosis is more tearful and withdrawn. She reported hx of psychotropic medication that she took as needed, but pt and her daughter could not remember the name. Per the EMR, pt was previously prescribed Klonopin, but this is currently on hold. Pt said she would be interested in another medication to help her depression and anxiety sxs (Dr. Green notified). Pt did not endorse hx of psychotherapy, psychiatric hospitalizations, or suicide attempts. Findings: Pt was alert and oriented x4, and was open and responsive to inquiry. She appeared able to appropriately provide details regarding her personal history, and pt's daughter corroborated pt's reports and provided collateral information. Speech appeared to be WNL and thoughts were connected and goal oriented. Eye contact was WNL and interpersonal behaviors were appropriate to context. Mood and affect were congruent, dysphoric, and tearful. Pt tended to become tearful whenever discussing her children. Pt reported her mood as "tired" and endorsed pervasive negative mood. She did not report suicidal ideation or thoughts of harm toward self or others. Sleep was reported as poor last night and her appetite was described as good. Pt endorsed changes in her cognition, including difficulties with her memory, attention, and word finding. Pain was reported as 0/10. I administered the [place] version of the [facility] Mental Status Examination (UMS) and results indicated moderate cognitive impairment (14/24; writing items omitted due to contact isolation precautions) on the screen. Areas of weakness included delayed memory (0/5; pt improved to 5/5 with multiple choice cues), attention (pt unable to repeat a string of 2 digits backward), story recall, and verbal fluency. I also administered mood screens and results indicated mild depressive and anxiety symptomatology (GDS=6; KIRAN-7=5). Pt endorsed feeling as though her life is empty, anhedonia, feeling helpless, worthless, hopeless, and nervous/anxious , excessive worry, trouble relaxing, irritability, and anticipatory anxiety. She indicated that support from her children, , and Anglican jesse help her to cope. She would like chaplains to continue visiting her on the rehab unit. I provided pt with much support and encouragement, as well as psychoeducation regarding cognition, pain, mood and coping to include specific skills of relaxed breathing and utilization of social support. Pt acknowledged information and willingness to try skills as needed or as prompted by staff. I also provided psychoeducation about mental health treatment (i.e., psychotherapy and psychotropic medications). Pt was interested in both psychotherapy and medications. I informed her and daughter how to identify mental health providers by contacting her insurance. I will also explore the possibility of pt following up with an onco-psychologist at , as pt receives her cancer care here at . I relayed intent and utility of testing and pt agreed to participate as needed. The purpose and method of the neurorehabilitation psychology service, as well as the limits of confidentiality, were described to the pt. The pt verbalized understanding and agreement to participate in the evaluation. Rehabilitation Recommendations: 1. Pt's cognition, mood, coping, and pain management will be monitored with treatment initiated as indicated. 2. Pt and family will be provided with feedback and education as appropriate. 3. Pt should not be expected to remember detailed information or make complex decisions without assistance. 4. Post discharge pt will need ongoing supervision for assistance with ADLs and health maintenance (e.g. medication compliance). Speech therapy is currently following during pt's hospitalization. 5. Post discharge pt will need to follow up with her provider(s) regarding cognitive impairment. Expected Outcomes. 1. Pt will participate appropriately in rehabilitation therapy services. 2. Pt will likely require assistance at home to be provided by family. Thank you for asking our advice and opinion regarding the care of this pleasant pt. Milka Gilbert Psy.D. Neurorehabilitation Psychology Postdoctoral Fellow Pager: [phone] ATTESTATION: I discussed this session and pt's care with the fellow and agree with her report and POC as amended (in blue) above. Thank you for asking our assistance. We will continue to follow. January Foote, PhD, ABPP * Zo Menon MD - 04/28/2017 1:36 PM CDT Associated Order(s): CONSULT ENDOCRINOLOGY PHYSICIAN Patient has been followed by endocrinology consult service while admitted to the hospital. Her BG for last 24 hours have been reviewed by me. New regimen started yesterday. No changes indicated at this time. Full progress note will follow tomorrow. * Leoncio Liang MD - 04/28/2017 12:49 PM CDT Associated Order(s): CONSULT NEUROLOGY PHYSICIAN Formatting of this note may be different from the original. 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 Pt not on aspirin or statin. Consult type: Opinion with orders Donna Wilde is a R handed 61 y.o. female being seen for neurologic evaluation regarding a hypodensity in the R cerebellar found on CT on 04/17 concerning for subacute stroke. The patient was initially admitted on 04/17/2017 for subarachnoid hemorrhage and left femur fracture secondary to fall. Stroke risk factors include DMII, HTN, and HLD. Neuro exam reveals decreased vision in left [...] ultrasound, consider alternative imaging if clinically indicated Impression: At this time, suspect indeterminate age stroke in R cerebellum. The nature of the hypodensity on CT is slightly unusual for infarct, so malignancy should be ruled out with subsequent testing. RECOMMENDATIONS: > MRI Brain w and w/o contrast > MRI lumbosacral spine w and w/o contast > A1c and lipid profile ordered > Stroke risk factor modification - optimize BP, goal SBP<140mmHg - optimize blood sugar, goal HbA1c<7 - optimize lipids, goal LDL<100 (or <70 if HbA1c>7) - Tobacco abstinence - Hold off on starting aspirin for now Thank you for this consult. We will continue to follow. Please page neurology economic research analyst with any further questions or concerns. Patient seen and plan of care discussed with Dr. Badillo and communicated to primary team. __ History of Present Illness: Donna Wilde is a R handed 61 y.o. female being seen for neurologic evaluation regarding R cerebellar stroke found on CT on 04/17. The patient was initially admitted on 04/17/17 for subarachnoid hemorrhage and left femur fracture secondary to fall. Patient reports she has had several falls [...] at home and then waking up in [facility]. She is s/ p fixation of left femur. She has DMII [...] weakness, sensory deficits, nausea, vomiting. Past Medical History Diagnosis Date DM2 (diabetes mellitus, type 2) (HCC) HLD (hyperlipidemia) Overweight (BMI 25.0-29.9) Thyroid disorder Leukemia (HCC) HTN (hypertension) Cancer (HCC) Past Surgical History Procedure Laterality Date section, low transverse Pr sigmoidoscopy flx dx w/collj spec br/wa if pfrmd N/A 04/14/2016 SIGMOIDOSCOPY DIAGNOSTIC performed by Shane Lynn MD at ENDO/GI Upper gastrointestinal endoscopy N/A 04/14/2016 ESOPHAGOGASTRODUODENOSCOPY performed by Shane Lynn MD at ENDO/GI Upper gastrointestinal endoscopy N/A 04/14/2016 ESOPHAGOGASTRODUODENOSCOPY BIOPSY performed by Shane Lynn MD at ENDO/GI Colonoscopy N/A 04/14/2016 COLONOSCOPY BIOPSY performed by Shane Lynn MD at ENDO/GI Pr sigmoidoscopy flx dx w/collj spec br/wa if pfrmd N/A 07/29/2016 SIGMOIDOSCOPY DIAGNOSTIC performed by Niharika Lam MD at ENDO/GI Upper gastrointestinal endoscopy N/A 07/29/2016 ESOPHAGOGASTRODUODENOSCOPY performed by Niharika Lam MD at ENDO/GI Pr esophagogastroduodenoscopy transoral diagnostic N/A 09/09/2016 ESOPHAGOGASTRODUODENOSCOPY performed by Hermila Cornejo MD at ENDO/GI Pr sigmoidoscopy flx dx w/collj spec br/wa if pfrmd N/A 09/09/2016 SIGMOIDOSCOPY DIAGNOSTIC performed by Hermila Cornejo MD at ENDO/GI Pr sigmoidoscopy flx w/biopsy single/multiple 09/09/2016 SIGMOIDOSCOPY BIOPSY performed by Hermila Cornejo MD at ENDO/GI Pr proph tx n/p/pltwr w/wo methylmethacrylate femur Left 04/19/2017 INSERTION CEPHALOMEDULLARY NAIL FEMUR performed by Shane Sam MD at [facility] OR [facility]Periop Social History Social History Marital Status: Spouse Name: Armen Number of Children: 8 Years of Education: N/A 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 Medications: Prescriptions prior to admission Medication Sig acetaminophen (TYLENOL) 325 mg tablet [...] eyes four times daily. cholecalciferol (VITAMIN D-3) 1,000 units tablet Take 2 Tabs by mouth daily. clonazePAM [...] (NOVOLOG FLEXPEN) 100 unit/mL injection PEN Inject 0-14 Units under the skin before meals and at bedtime. insulin glargine (LANTUS SOLOSTAR) 100 unit/mL (3 mL) injection PEN Inject 10 Units under the skin at bedtime daily. Insulin [place] (Disposable) 31 gauge x 1/4" ndle Use as needed for insulin administration lancets (ACCU-CHEK FASTCLIX) [facility] [place] [facility] To check blood sugars before meals and at bed time. levoFLOXacin (LEVAQUIN) 750 mg tablet Take 1 Tab by mouth every 24 hours for 2 days. levothyroxine (SYNTHROID) 50 mcg tablet Take 1 Tab by mouth daily 30 minutes before breakfast. magnesium oxide (MAG-OX) 400 mg tablet Take 1 Tab by mouth twice daily. melatonin 3 mg tab Take 1 Tab by mouth at bedtime daily for 60 days. mineral oil/white petrolatum (ABSORBASE) oint apply to hands and affected areas as needed poqteuog-lfpropokj-ukkequfnlsuxp (MAXITROL) 3.5 mg/g-10,000 unit/g-0.1 % ophthalmic ointment [...] at bedtime. 100 Strip 6 Blood-Glucose Meter [facility] [place] One Touch Verio meter 1 Each 0 brimonidine (ALPHAGAN P) 0.15 % ophthalmic solution Apply 1 Drop to left eye as directed three times daily. 5 mL 0 carboxymethylcellulose (REFRESH PLUS) 0.5 % dpet Apply 1 Drop to both eyes four times daily. 50 Each 4 cholecalciferol (VITAMIN D-3) 1,000 units tablet Take 2 Tabs by mouth daily. 90 Tab clonazePAM (KLONOPIN) 0.5 mg tablet Take 0.5 [...] (NOVOLOG FLEXPEN) 100 unit/mL injection PEN Inject 0-14 Units under the skin before meals and at bedtime. 3 Package 3 insulin glargine (LANTUS SOLOSTAR) 100 unit/mL (3 mL) injection PEN Inject 10 Units under the skin at bedtime daily. 1 Package 0 Insulin [place] (Disposable) 31 gauge x 1/4" ndle Use as needed for insulin administration 100 Each 6 lancets (ACCU-CHEK FASTCLIX) MISC To check blood sugars before meals and at bed time. 100 Each 3 levoFLOXacin (LEVAQUIN) 750 mg tablet Take 1 Tab by mouth every 24 hours for 2 days. 2 Tab 0 levothyroxine (SYNTHROID) 50 mcg tablet Take 1 [...] to hands and affected areas as needed fchflnvu-xljdxzqjs-ermybuhtkioti (MAXITROL) 3.5 mg/g-10,000 unit/g-0.1 % ophthalmic ointment [...] 30 Tab 0 Review of Systems: Constitutional: negative Eyes: negative Ears, nose, mouth, throat, and face: negative Respiratory: negative Cardiovascular: negative Gastrointestinal: negative Genitourinary: negative Integument/breast: negative Hematologic/lymphatic: negative Musculoskeletal: negative Neurological: negative Behavioral/Psych: negative Endocrine: negative Allergic/Immunologic: negative Physical Exam: Vital Signs: Last Filed In 24 Hours Vital Signs: 24 Hour Range BP: 130/59 mmHg (04/28 855) Temp: 37.1 C (98.7 F) (04/28 855) Pulse: 68 (04/28 855) Respirations: 16 PER MINUTE (04/28 855) SpO2: 98 % (04/28 855) O2 Delivery: None (Room Air) (04/28 855) Height: 162.6 cm (64") (04/27 1500) BP: (116-157)/(42-71) Temp: [36.6 C (97.9 F)-37.2 C (98.9 F)] Pulse: [66-81] Respirations: [16 PER MINUTE-18 PER MINUTE] SpO2: [97 %-100 %] O2 Delivery: [-] Intensity Pain Scale 0-10 (Pain 1): 9 (04/28/17854) HEENT: normocephalic, eyes open with no discharge, [...] pain Limited by pain Limited by pain Limited by pain 5 5 Sensory: Light touch: intact, without [...] encounter of (from the past 24 hour(s)) POC GLUCOSE Collection Time: 04/27/17 5:08 PM Result Value Ref Range Glucose, POC 129 (H) 70 - 100 MG/DL POC GLUCOSE Collection Time: 04/27/17 8:46 PM Result Value Ref Range Glucose, POC 97 70 - 100 MG/DL CBC Collection Time: 04/28/17 6:58 AM Result Value Ref Range White Blood Cells 4.4 (L) 4.5 - 11.0 K/UL RBC 2.05 (L) 4.0 - 5.0 M/UL Hemoglobin 7.4 (L) 12.0 - 15.0 GM/DL Hematocrit 21.1 (L) 36 - 45 % MCV 102.7 (H) 80 - 100 FL MCH 36.0 (H) 26 - 34 PG MCHC 35.1 32.0 - 36.0 G/DL RDW 19.0 (H) 11 - 15 % Platelet Count 69 (L) 150 - 400 K/UL MPV 7.5 7 - 11 FL BASIC METABOLIC PANEL Collection Time: 04/28/17 6:58 AM Result Value Ref Range Sodium 134 (L) 137 - 147 MMOL/L Potassium 3.7 3.5 - 5.1 MMOL/L Chloride 103 98 - 110 MMOL/L CO2 29 21 - 30 MMOL/L Anion Gap 2 (L) 3 - 12 Glucose 102 (H) 70 - 100 MG/DL Blood Urea Nitrogen 21 7 - 25 MG/DL Creatinine 0.78 0.4 - 1.00 MG/DL Calcium 8.9 8.5 - 10.6 MG/DL eGFR Non >60 >60 mL/min eGFR >60 >60 mL/min TOTAL T3 (TRIIODOTHYRONINE) Collection Time: 04/28/17 6:58 AM Result Value Ref Range T3 (Total) 56 (L) 87 - 180 NG/DL TSH WITH FREE T4 REFLEX Collection Time: 04/28/17 6:58 AM Result Value Ref Range TSH 8.555 (H) 0.35 - 5.00 MCU/ML FREE T4-FREE THYROXINE Collection Time: 04/28/17 6:58 AM Result Value Ref Range T4-Free 0.9 0.6 - 1.6 NG/DL POC GLUCOSE Collection Time: 04/28/17 8:57 AM Result Value Ref Range Glucose, POC 149 (H) 70 - 100 MG/DL POC GLUCOSE Collection Time: 04/28/17 1:02 PM Result Value Ref Range Glucose, POC 120 (H) 70 - 100 MG/DL Glucose: 102 (04/28/17 0658) POC Glucose (Download): 149 (04/28/17 0857) Pertinent radiology reviewed. Leoncio Liang MD Neurology PGY2 Associated attestation - Chadd Badillo MD - 04/28/2017 10:02 PM CDT Formatting of this note may be different from the original. ATTESTATION I personally performed the omalley portions of the E/M visit, discussed case with resident and concur with resident documentation of history, physical exam, assessment, and treatment plan unless otherwise noted. Staff name: Chadd Badillo MD Date: 04/28/2017 in this encounter Miscellaneous Notes * Rehab Care Plan - Ramirez Myers MD - 04/30/2017 3:45 PM CDT Formatting of this note may be different from the original. Physical Medicine & Rehabilitation Individualized Overall Plan of Care Date of Service: 04/30/2017 Donna Wilde is a 61 y.o. female. 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 Patient was transferred to [facility] from an outside hospital on 04-16-2017 [...] post a cephalomedullary nailing on 04-19-2017. Patient initially required a Corpack with tube feeds since admission due to concerns for dysphagia, but Corpack was removed on 04-26-2017 as patient continues to upgrade her diet. Patient admission complicated by a recent BMT history requiring frequent monitoring and medication management. Infectious Disease has been involved due to BMT history and concerns for atypical pneumonia requiring broad spectrum antibiotics. Patient has since been transitioned to oral Levaquin for 10 days. Patient has been working with physical and occupational therapy since 04-17-2017 and making some functional gains. Rehab Diagnosis: Traumatic Brain Injury Relevant change since post-admission physician evaluation: Follow-up Brain MRI was performed 04/29 and neurology consulted to further evaluate the imaging changes noted in the cerebellum on Head CT. Brain MRI showed an enhancing nodular right medial cerebellar lesion and numerous smaller lesions with associated vasogenic edema likely reflecting leukemia with differential diagnosis including an opportunistic intracranial infection. Patient is planned for re-admission to the acute care hospital for further evaluation and management of this finding. This patient does still meet medical necessity and can participate in and can fully benefit from the services offered in the IRF setting until arrangements can be made for transfer back to acute care for further evaluation and management of new cerebellar lesions. Active Comorbidities: AML, Hypothyroidism, Diabetes Mellitus, Hyperlipidemia, Hypertension Risk of Medical Complications: See relevant changes above. Functional Star Measures (FIMS) Current Level of Function Evaluation FIMS Current FIMS Eating FIM: 4 - Assist managing utensil, cup, or glass Grooming FIM: 4 - Minimal contact assistance, patient performs 75% or more of grooming/bathing/dressing/toileting tasks Bathing FIM: 1 - Total assistance, requires 2 staff to assist Dressing - Upper Body FIM: 5 - Set up Dressing - Lower Body FIM: 1 - Total assistance, requires 2 staff to assist Toileting FIM: 0 - Activity did not occur - Safety (waiting for therapy to eval) Bladder FIM: 1 - Total assistance, patient expends less than 25% effort ( complete % of assist, if change diapers, total assist) Bowel FIM: 1 - Total assistance, patient expends less than 25% effort (complete % of assist, if change diapers, total assist) Transfers FIM: 0 - Activity did not occur - Safety (waiting for therapy to eval) Shower Transfers FIM: 1 - Total assistance, two or more people Gait: 1 - Toal assistance, two or more people, < 50 feet Stairs FIM: 0 - Activity did not occur - Safety Comprehension FIM: 5 - Standby prompting. Understands abstract and/or basic information greater than 90% of the time, prompting less than 10% Expression FIM: 6 - Modified independence - Augemtative communication device or system (sports complex attendant) Social Interaction FIM: 5 - Supervision required - Able to interact appropriately >90% of the time, prompting <10% Problem Solving FIM: 3 - Moderate prompting - Able to solve routine problems 50- 74%. Needs direction less than half of the time to initiate, plan or complete daily activities Memory FIM: 3 - Moderate promting - Able to recognize people frequently encountered, remembers daily routines, responds to requests of others 50-74% of the time, needs prompting less than half of the time Eating FIM: 5 - Verbal cues, coaxing Grooming FIM: 5 - Set up Bathing FIM: 1 - Total assistance, requires 2 staff to assist Dressing - Upper Body FIM: 5 - Set up Dressing - Lower Body FIM: 1 - Total assistance, requires 2 staff to assist Toileting FIM: 1 - Total assistance, requires 2 staff to assist Bladder FIM: 1 - Total assistance, patient expends less than 25% effort ( complete % of assist, if change diapers, total assist) Bowel FIM: 1 - Total assistance, patient expends less than 25% effort (complete % of assist, if change diapers, total assist) Transfers FIM: 2 - Maximal assistance, lifting assistance to initiate and complete transfer Shower Transfers FIM: 1 - Total assistance, two or more people Gait: 1 - Total assistance, patient expends less than 25% effort (comment % of effort), <50 feet Stairs FIM: 0 - Activity did not occur - Safety Comprehension FIM: 5 - Standby prompting. Understands abstract and/or basic information greater than 90% of the time, prompting less than 10% Expression FIM: 5 - Standy prompting - Able to express abstract and/or basic information >90% of the time, prompting <10% Social Interaction FIM: 5 - Supervision required - Able to interact appropriately >90% of the time, prompting <10% Problem Solving FIM: 3 - Moderate prompting - Able to solve routine problems 50- 74%. Needs direction less than half of the time to initiate, plan or complete daily activities Memory FIM: 3 - Moderate promting - Able to recognize people frequently encountered, remembers daily routines, responds to requests of others 50-74% of the time, needs prompting less than half of the time Physical Therapy Goals Patient will perform: at ambulation level, household mobility, Minimum assistance, with device Occupational Therapy Goals Pt will perform basic care and transfer with: Roller walker level, Minimum assistance Speech Therapy Goals Will improve comprehension and remember information for daily living tasks with : Minimal assist Will improve attention skills necessary for safety in the home with: Minimal assist Nursing Goals Bladder Management: Yes Will decrease the number of bladder accidents during the day and/or night to: No accidents Patient will follow time voiding program independently with: Moderate verbal cues Bowel Management: Yes Will verbalize need to have a bowel movement daily/every other day (for constipation) with: Moderate verbal cues Medication Management: Yes Will verbalize reason for medication with: Moderate verbal / written cues Will verbalize dose and time for medication with: Moderate verbal / written cues Will verbalize side effects of medication with: Moderate verbal / written cues Skin Integrity: Yes Will be free of Stage 1 Pressure Ulcers by performing positioning techniques with: Moderate verbal cues Will verbalize optimal skin care routine with: Moderate verbal cues Pain Management: Yes Will verbalize pain level at or between ____ at rest: Progressing Will verbalize pain level at or between ____ with activity: Progressing Safety: Yes Will verbalize 2-3 Fall risk factors with: Moderate verbal cues Will demonstrate understanding of mobility precautions with: Moderate verbal cues Will demonstrate understanding of own limitations with: Moderate verbal cues Will verbalize the importance of using call light with: Moderate verbal cues Disease Knowledge: No Nutrition: No Additional therapeutic disciplines may be included during this stay if indicated during interdisciplinary communication and will be noted in the daily progress notes when relevant. Social Work will address discharge planning needs. The patient will require physician supervision due to the medically complex problems described above. Rehabilitation Plan Patient has goals with Physical therapy, Occupational therapy and Speech therapy each 60 minutes a day, 5 days a week for the duration of the rehabilitation stay within an interdisciplinary rehabilitation program with family service caseworker/aids social worker, corporate meeting planner, neuropsychologist, rehab nursing and PM& R oversight. Rehabilitation Prognosis: Fair Medical Prognosis: Fair, see above Tolerance for three hours of therapy a day: Patient has been participating, but will require transfer back to acute care for the above described reasons. Discharge Planning Patient to discharge back to acute care given new findings on Brain MRI as discussed above. This plan of care was formulated based upon a review of the progress this patient made with therapies during the acute hospital stay, the goals set by the inpatient rehabilitation therapists at the time of their initial assessment , and my expertise in caring for patients with this rehabilitation diagnosis and accompanying comorbidities. Ramirez Myers MD 04/30/17 3:45 PM * Case Mgmt DC Plan - Awilda Francisco - 04/30/2017 3:00 PM CDT NAME:Donna Wilde :1955 AGE: 61 y.o. Discharge Date: 04/30/2017 Discharging To: 1513 Scheduled P/U Time: 1630 Form Of Transportation: [facility] Mobility: Mod assist x2 stand pivot w/ RW Rehab Unit 8 [facility], executive vice president of sales [phone] * Case Mgmt DC Plan - Nasrin Navarrete - 04/28/2017 12:51 PM CDT Formatting of this note may be different from the original. Case Management Admission Assessment NAME:Donna Wilde : 1955 AGE: 61 y.o. ADMISSION DATE: 04/27/2017 DAYS ADMITTED: LOS: 1 day Todays Date: 04/28/2017 Source of Information: patient and dgt Sejal [phone]. Due to language barrier, an sports complex attendant was present during the history-taking and subsequent discussion (and for part of the physical exam) with this patient. Insurance Sales Executive mode: In person Emy Bustos Insurance Sales Executive/ ID Number: did not have number to provide Plan Plan: CM Assessment, Assist PRN with SW/NCM Services, Discharge Planning for Home Anticipated Emergency Contact Extended Emergency Contact Information Primary Emergency Contact: Jocelynn Wilde [facility] Mobile Relation: Daughter Secondary Emergency Contact: Sejal Wilde [facility] Mobile Relation: Daughter DPOA On file, dgt Lilly Wilde [phone] and Armen Wilde [phone]. Transportation Does the patient need discharge transport arranged?: Yes Transportation Name, Phone and Availability #1: gemma Ayers [phone] Expected Discharge Living Situation Prior to Admission ? Living Arrangements Type of Residence: Home, dependent on others (Pt reports her did everything for her and wouldn't let her do anything to care for herself.) Living Arrangements: Spouse/significant other ( Armen Wilde) Bathroom Shower / Tub: Tub/Shower Unit Bathroom Toilet: Standard (Pt used bsc over toilet.) Bathroom Accessibility: Accessible via Walker How many levels in the residence?: 2 (Pt has ramp to enter front of home. Pt can live on main level of home.) Can patient live on one level if needed?: Yes Support Systems: Spouse/Partner, Other family Assistance Needed: Yes Who provides assistance or could if needed?: Armen, Pt has 6 children with several living in the area, Sejal Hopkins, Honorio and Ignacio Are they in good health?: Yes Can support system provide 24/7 care if needed?: Yes Home Care Services: No Pt reports does not let her do anything and completes all tasks for her. Pt using cane and rw at times. Pt has been weak last month due to bilateral pneumonia. ? Level of Function Prior level of function: Needs assist with ADLs Which ADLs require assistance?: cooking, cleaning, bathing Who assists with ADLs?: and other family ? Cognitive Abilities Cognitive Abilities: Alert and Oriented, Continue to Assess Financial Resources ? Coverage Primary Insurance: Medicare (A&B) Secondary Insurance: Medicaid ([facility] Medicaid) Additional Coverage: RX (Part D plan) ? Source of Income Source Of Income: SSDI ? Financial Assistance Needed? None Current/Previous Services ? PCP Na No PCP Pt reports her BMT physician Dr. Moody is primary physician. ? DME DME at home: Bedside Commode, Shower Chair, Single Point Cane, Roller Walker ? Home Health Receiving home health: In the past Agency name: [facility] Would patient use this agency again?: Yes ? HD or PD Undergoing hemodialysis or peritoneal dialysis: No ? Tube/Enteral Feeds Receive tube/enteral feeds: No ? Infusion Receive infusions: In the past Infusion company: [employer]) Would patient use this agency again?: Yes ? Private Duty Private duty help used: No ? HCBS Home and community based services: No ? Cholo Huffman: N/A ? Hospice Hospice: No ? Outpatient Therapy PT: No OT: No HIRED HAND: No ? SNF/NH SNF: No NH: No ? IPR IPR: In the past When did patient receive care?: Jul 2016 Name of Facility: [facility] Would patient return for future services?: Yes ? LTACH LTACH: No ? Acute Hospital Stay Acute Hospital Stay: Yes Was patient's stay within the last 30 days?: Yes When did patient receive care?: 04/16/17 until transfer to [facility] Psychosocial Needs ? Mental Health Mental Health History: Yes (Dgt reports they have concern related to pt's depression. Pt takes medication and believes it helps, but does not recall name. ) Mental Health Provider: unsure of who first prescribed Mental Health Symptoms: Significant tiredness, low energy or problems sleeping, Feeling depressed ? Substance History History Smoking status Never Smoker Smokeless tobacco Never Used History Alcohol Use No History Drug Use No ? Abuse/Sexual Assault Have You Ever Been Hit, Hurt Or Threatened In Any Way In The Past 5 Years?: No Nasrin Navarrete [facility] *[phone] * Advanced Care Planning/Resuscitation Status - Damion Green DO - 04/27/2017 3:54 PM CDT Advance Care Planning/Resuscitation Status Conversation Individuals present for advance care planning conversation: resident/fellow physician Pertinent details of conversation (including direct quotes from patient or surrogate): Pt wanted to be full code Outcome of conversation: Full Code Documents completed as a result of this conversation: None Other documents present, which outline patient/surrogate wishes: None * Rehab Pre-Admission Screening - Chico Hernandes MD - 04/27/2017 1:43 PM CDT Formatting of this note may be different from the original. Physical Medicine & Rehabilitation Pre-Admission Screening Donna Wilde is a 61 y.o. female. : 1955 Primary Insurance: MEDICARE Secondary Insurance: [facility] MEDICAID [place] Date of Hospital Admission: 04-16-2017 Date of Expected Rehab Admission: 04-27-2017 Precautions: Fall, aspiration Weight bearing Precautions: Weight bearing as tolerated - left lower extremity Medical Course Hospital Course: Donna Foss is a 61 year old female with a past medical history of HTN , HLD, DM, hypothyroidism and AML. Patient was transferred to [facility] from an outside hospital on 04-16-2017 after sustaining a fall at home hitting her head and having a positive loss of consciousness. Patient was found to have a suffered subsequent subarachnoid hemorrhage, right cerebellar stroke, T1 compression fracture and a left femur fracture. Patient is status post a cephalomedullary nailing on 04-19-2017. Patient has required a Corpack with tube feeds since admission due to concerns for dysphagia, but Corpack was removed on 04-26-2017 as patient continues to upgrade her diet. Patient admission complicated by a recent BMT history requiring frequent monitoring and medication management. Infectious Disease has been involved due to BMT history and concerns for atypical pneumonia requiring broad spectrum antibiotics. Patient has since been transitioned to oral Levaquin for 10 days. Patient has been working with physical and occupational therapy since 2016 and making some functional gains. Patient will likely return home at a supervised level of care for activities of daily living, functional transfers and ambulation. Patient has been working with speech therapy to address dysphagia, but has not had a formal cognitive evaluation and would benefit from one in order to determine baseline and address cognitive deficits. Rehab Diagnosis: Stroke/Traumatic Brain Injury Comorbidities Interventions: 1. 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 Patient is status post Flu/Hermila conditioning followed by MSD transplant. Recent biopsies show chronic remission and chimerism is 100% donor. Patient with previous aGvHD with skin and GI, now quiescent. Patient stopped prednisone 11-16-2016 with no flare. BMT will continue to follow and make additional recommendations as needed. 2. Hypothyroidism: Will continue to monitor and manage, as patient continues their home dose of Levothyroxine. 3. Diabetes: Patient's blood glucose has ranged from 91-185 over the past 24 hours and was on an insulin drip until 04-26-2017. Patient current taking a Novolog sliding scale five times daily and Lantus 10 units at bedtime. Patient may benefit from ongoing education from diabetes nurse educator for healthy lifestyle modifications. 4. Hyperlipidemia: Will continue to monitor and manage. 5. Hypertension: Patient's blood pressure over the past 24 hours has ranged from 128-165 / 72-76 . Patient currently has Propanolol ordered. Will continue to monitor and manage for optimal blood pressure control. Risk of Medical Complication and Planned Interventions: 1. Neurology: Patient has suffered a diffuse subarachnoid hemorrhage and a right cerebellar stroke secondary to a fall at home. 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 Patient with sleep disturbance and delirium requiring Melatonin and Risperdal for treatment. 2. Musculoskeletal: Patient sustained a T11 compression fracture during her fall that has remained stable during this admission. Patient sustained an nondisplaced left intertrochanteric fracture and required surgery on 04-19-2017 for stabilization. She is stable and is currently taking Acetaminophen and Oxycodone as needed. 3. HEENT: Patient with facial abrasions due to the fall and is to utilize Bacitracin twice daily. Patient with left eye uveitis. Ophthalmology was consulted and recommended Maxitrol and Brimonidine. Patient will need to have a vitreus biopsy as an outpatient. Continue to monitor and manage as needed. 4. Infectious Disease: Atypical pneumonia, as chest xray on 04-16-2017 showed infiltrates with groundglass opacities for atypical pneumonia. She is status post a bronchoscopy. Patient was on broad spectrum antibiotics for treatment. Patient was CMV +/+ and needs weekly monitoring and is now negative as of 2016. Patient is on prophylactic Acyclovir. Patient to stop her Pentamidine 2016 after her 12 month vaccination. ID will continue to monitor and co-manage. while on rehab. 5. Diabetes: Patient's blood glucose has ranged from 91-185 over the past 24 hours and was on an insulin drip until 04-26-2017. Patient current taking a Novolog sliding scale five times daily and Lantus 10 units at bedtime. Patient may benefit from ongoing education from diabetes nurse educator for healthy lifestyle modifications. 6. Hypertension: Patient's blood pressure over the past 24 hours has ranged from 128-165 / 72-76 . Patient currently has Propanolol ordered. Will continue to monitor and manage for optimal blood pressure control. Prior Level of Function Self-Care/ADLs: Patient was independent with all activities of daily living and functional transfers except for transitioning to a shower chair. Mobility: Patient ambulates with her walker and occasionally a cane. 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 Shares homemaking tasks with her spouse. Home Environment: Home Situation: Lives with Family () (04/27/2017 1:00 PM) Patient Owned Equipment: Roller Walker;Manual Wheelchair;Single Point Cane (04/27 1:00 PM) Type of Home: House (04/27/2017 1:00 PM) Entry Stairs: Ramp (04/27/2017 1:00 PM) In-Home Stairs: No Stairs (04/27/2017 1:00 PM) Comments: Prior level of function obtained from patient's son. Patient's assisting with ADL and IADL. (04/23/2017 11:00 AM) Bathroom Equipment: Shower Chair (04/20/2017 2:00 PM) Support System: Daughter (Jocelynn - able to provide support as needed); Daughter (Sejal - able to provide support as needed); Spouse (Retired and able to provide 03/05) Current Level of Function Physical Therapy 04-27-2017: Bed Mobility: Supine to Sit: Minimal Assist;Head of Bed Elevated;Use of Rail; Verbal Cues Transfer Type: Sit to/from Stand Transfer: Assistance Level: To/From;Bed;Bed Side Chair;Moderate Assist;x2 People Transfer: Assistive Device: Roller Walker Transfers: Type Of Assistance: Left Knee Blocked;Elevated Bed;Verbal Cues;For Safety Considerations;For Strength Deficit Demonstrates proximal weakness during sit to stand transition, requiring assist at hips as well as left knee blocked. Verbal cues for hand placement and sequencing of transfer needed again this date. Other Transfer Type: Stand Pivot Other Transfer: Assistance Level: From;Bed;To;Bed Side Chair;Moderate Assist;of 1st person;Minimal Assist;of 2nd person Other Transfer: Assistive Device: Roller Walker Other Transfer: Type Of Assistance: Verbal Cues;Knees(s) Blocked End Of Activity Status: Up in Chair;Nursing Notified;Instructed Patient to Request Assist with Mobility;Instructed Patient to Use Call Light (chair alarm activated) Comments: Instructed patient to sit in bedside chair x 45 minutes today. Patient, RN, and spouse all in agreement. Occupational Therapy 04-26-2017: ADL's Where Assessed: Chair Eating Assist: Stand By Assist Eating Deficits: Setup;Thickened Liquids;Pureed Diet LE Dressing Assist: Total Assist LE Dressing Deficits: Don/Doff R Sock;Don/Doff L Sock Toileting Assist: Total Assist Toileting Deficits: Perineal Hygiene (incont of BM prior to oob. Changed brief & hygiene) Functional Transfer Assist: Minimal Assist (x2 to EOB, going to R side.) Functional Transfer Deficits: (squat pivot bed to chair with max assist of 1) Comment: Pt had urinated and incont of BM with brief. Pt reports she can tell when she goes but is "embarrassed to have someone clean me". Educated pt to call Rn when urge is present. Initiation is a defeciet at this time. Pt transferred to chair with squat pivot with max assist. Pt set up for feeding while in chair. Activity Tolerance Sitting Balance: 2+/5 Supports Self w/ 1 UE Cognition Overall Cognitive Status: Confused Expression: Language Barrier Social Interaction: WFL Adequate to Solve Routine Tasks Problem Solving: Cueing to Sequence Task Orientation: Alert & Oriented x3;To Person;To Time;To Situation (stated hospital but not able to recall name of hospital) Attention: Awake/Alert Cognition Comment: Pt reports headache. Pt with initiation defecits. Follows commands. Speech Therapy 04-27-2017: EVALUATION SUMMARY Videoswallow Summary*: Videoswallow study completed. Pt presents with normal oropharygneal swallow. No penetration nor aspiration noted on study. Phone box blank machine operator #[phone] as well as in person sports complex attendant Esteban Saleh. Pt's spouse also present. Oral Stage Summary*: Oral stage WFL. Withdraw, formation and transfer of all presented consistencies WFL. No early spillover observed. No anterior loss of bolus nor significant oral residue following swallows. Pharyngeal Stage Summary*: Pharyngeal stage WFL. Pt demonstrating timely as well as complete airway closure at level of true and false vocal cords. Epiglottic inversion noted with adequate anterior and superior hyolaryngeal movement. Adequate duration and distension of UES opening. No pharyngeal retention noted following swallows as noted good base of tongue retraction and pharyngeal constriction. Swallow Recommendations* PO: Regular, Thin Liquids Plan*: Pt may benefit from formal cognitive evaluation at next level of care, however, family reports pt is near baseline cognitive functioning. Prognosis*: Good NOMS Dysphagia Rating*: 7-Normal -Ability to eat indep not limited by swallow function. Swallow safe/efficient for all consistencies. Compensatory strategies effectively used when needed. Penetration Aspiration Scale*: 1 - Material does not enter laryngeal vestibule Rehabilitation Plan Patient will receive Physical therapy, Occupational therapy and Speech therapy each 60 minutes a day, 5 days a week for the duration of the rehabilitation stay within an interdisciplinary rehabilitation program with family service caseworker/ aids social worker, corporate meeting planner, neuropsychologist, rehab nursing and PM&R oversight. Rehabilitation Prognosis: Fair; complex rehab case, but hopeful that the patient will progress functionally after stroke/TBI/femur fracture Medical Prognosis: Fair; given the patient's oncologic diagnosis as discussed above, rehabilitation with functional improvement is vital to the patient's ability to progress and reduce infection risk; we do anticipate the patient will have clinical improvements to discharge home when functionally improved Tolerance for three hours of therapy a day: Fair, Patient has participated well with therapies which started on 04-17-2017 in the acute care setting and is anticipated to tolerate 3 hours of therapy per day, as required. Goals/Barriers/Facilitators Family / Patient Goals: To regain independence to help reduce burden of care. Mobility Goals: Chair/Bed transfers Supervision, Transfers Supervision, Wheelchair Supervision, Ambulation Supervision, Bed mobility Supervision and Physical Therapy will evaluate and treat ambulation/wheelchair use and bed transfers Activities of Daily Living (ADLs) Goals: Eating Supervision, Grooming Supervision, Bathing Supervision, Dressing - Upper Supervision, Dressing - Lower Supervision, Toileting Supervision, Toilet transfers Supervision, Tub / Shower transfer Supervision and Occupational therapy will evaluate and treat basic Activities of Daily Living Cognition / Communication Goals: Social interaction Supervision, Comprehension Supervision, Expression Supervision, Problem solving Supervision, Memory Supervision and Speech therapy will evaluate and treat cognition and communication deficits and assess for safe swallow Barriers & Interventions: 1. Caregiver Apprehension: Arrange caregiver support and discuss barriers and patient progress with caregivers when appropriate. 2. Functioning at Wheelchair Level: Adaptive equipment, create wide,/clear paths , home modifications, alternative transportation arrangements, vehicle modifications, pursue home ramp access, and remove home obstacles. 3. [place] of Care: Initiate interdisciplinary rehabilitation to improve functional independence and reduce burden of care. 4. Medication Education: Pharmacist and nursing staff to provide education to patient and family regarding medication side effects, special precautions, and safe administration. 5. Poor Strength / Endurance: Patient will continue to work with intense physical and occupational therapy to gain strength and endurance for a safe discharge to home. 6. Untreated Depression / Anxiety: Address mood and anxiety to transition patient safely home. Consult Neuropsychology to assess mood and aid in coping skills. 7. Wound Care Education: Nursing staff will provide education to the patient and family regarding proper wound care and monitoring for signs and symptoms of infection. Facilitators: good home setup, controlled pain, good family / social support, patient motivation, improving strength / endurance and improving medical condition Discharge Planning Expected Length of Stay: 14-21 day(s) Expected Discharge Disposition: Home Expected Discharge Needs: Patient will likely benefit from ongoing therapies at a home health level of care before transitioning to an outpatient or Day Program to continue to address her cognitive deficits. Patient currently owns a roller walker, shower chair, wheelchair and single point cane. Patient will not likely require any additional needs at discharge from rehab. LISSETTE Jackson RN I have reviewed this pre-admission screen and approve the recommendations and plans for admission. Donna Wilde is a 61 y.o. female with PMH of AML s/p SCT, DM2 and HTN, known to rehab service from prior [facility] stay in September 2016, who was transferred to [facility] from [facility] 04/16/2017 after a fall with loss of consciousness after striking her head. She suffered subsequent SAH concerning for traumatic brain injury, as well as being noted to have a right cerebellar stroke, T1 compression fractures and left femur fracture and underwent left cephalomedullary nailing 04/19/[address] Sam. NSG evaluated and no acute surgical intervention or bracing necessary. The patent has persistent cognitive and functional deficits and goals with PT, OT, and HIRED HAND (for formal cognitive eval/treatment) and complexity including hyperglycemia in setting of DM (Hb A1c 6.0 on admission, now requiring closer monitoring as physical requirements in rehabilitation increase and potentially impacting blood sugars) , likely cognitive deficits, AML s/p SCT with anemia and thrombocytopenia, atypical pneumonia with BMT following and ID consulted--- plan to continue Levaquin until 04/29, incisional treatment/monitoring with dressing changes, post -operative and post-traumatic pain with risk of failure to progress with rehabilitation, risk of sedation and failure due to pain management, tolerance of pain medications, will need potentially daily adjustments to strike balance between good pain control and sedation on opiates, avoid potential for addiction /dependence while still facilitating participation now requiring closer monitoring as physical requirements in rehabilitation increase and potentially impacting pain, and all of which puts the patient at risk of wound infection, sepsis, post-stroke complications such as hemorrhagic conversion, agitation, associated morbidity/mortality. Additionally, the patient will likely benefit from aggressive clinical education including management of hematologic concerns , infectious concerns, and pain/areas of traumatic injuries, to improve compliance and reduce likelihood of complication or readmission to acute care. All of these clinical issues require daily physician oversight to reach target clinical and functional goals prior to discharge home. The patient is clinically/medically stable for admission to acute inpatient rehabilitation at this time. Treatment Plan (including disciplines, frequency and duration) We will initiate a comprehensive rehab program working on strengthening, endurance and safety with regard to transfer training, ambulation, dressing, bathing and grooming. Rehab nursing will be involved to monitor bowel and bladder function, skin integrity, administration of medications and family and patient education and therapy carryover. The patient will have intensive therapies with physical therapy 1 hour(s), occupational therapy 1 hour(s), and speech language pathology 1 hour(s) for a minimum of 3 hours a day 5 days a week for the duration of the acute inpatient rehabilitation stay. Chico Hernandes MD in this encounter Plan of Treatment Date Type Specialty Care Team Description 06/28/2017 Procedure Pass Infectious Diseases as of this encounter Results * POC GLUCOSE (05/01/2017 12:43 PM) Component Value Ref Range Glucose, POC 125 (H) 70 - 100 MG/DL Specimen Performing Laboratory [facility] [address] [place] [address] * POC GLUCOSE (05/01/2017 10:03 AM) Component Value Ref Range Glucose, POC 109 (H) 70 - 100 MG/DL Specimen Performing Laboratory [facility] [address] [place] [id number] * POC GLUCOSE (05/01/2017 9:05 AM) Component Value Ref Range Glucose, POC 66 (L) 70 - 100 MG/DL Specimen Performing Laboratory [facility] [address] [place] [id number] * POC GLUCOSE (05/01/2017 8:35 AM) Component Value Ref Range Glucose, POC 65 (L) 70 - 100 MG/DL Specimen Performing Laboratory [facility] [address] [place] [id number] * POC GLUCOSE (04/30/2017 8:47 PM) Component Value Ref Range Glucose, POC 110 (H) 70 - 100 MG/DL Specimen Performing Laboratory [facility] [address] [place] [id number] * POC GLUCOSE (04/30/2017 7:01 PM) Component Value Ref Range Glucose, POC 100 70 - 100 MG/DL Specimen Performing Laboratory [facility] [address] [place] [id number] * BASIC METABOLIC PANEL (04/30/2017 8:00 AM) Component Value Ref Range Sodium 136 (L) 137 - 147 MMOL/L Potassium 4.1 3.5 - 5.1 MMOL/L Chloride 107 98 - 110 MMOL/L CO2 24 21 - 30 MMOL/L Anion Gap 5 3 - 12 Glucose 77 70 - 100 MG/DL Blood Urea Nitrogen 22 7 - 25 MG/DL Creatinine 0.86 0.4 - 1.00 MG/DL Calcium 9.2 8.5 - 10.6 MG/DL eGFR Non >60 [...] Pharmacist for questions. Specimen Performing Laboratory Blood [facility] [address] [place] [id number] * CBC (04/30/2017 8:00 AM) Component Value Ref Range White Blood [...] Performing Laboratory Blood [facility] [address] [place] [address] * POC GLUCOSE (04/30/2017 6:58 AM) Component Value Ref Range Glucose, POC 72 70 - 100 MG/DL Specimen Performing Laboratory [facility] [address] [place] [phone] * POC GLUCOSE (04/29/2017 9:10 PM) Component Value Ref Range Glucose, POC 143 (H) 70 - 100 MG/DL Specimen Performing Laboratory [facility] [address] [place] [address] * MRI L-SPINE WO/W CONTRAST (04/29/2017 7:46 PM) Specimen Performing Laboratory [facility] RESULTS Impressions 1.Moderate disc degeneration at L3-L4 and L5-S1 and ryjs-gt-yuqachar L4-L5 disc degeneration. 2.No evidence of central [...] moderate degree at L3-L4 and L5-S1 and gbvu-ks-eerlpslq degree at L4-L5.. Suspected small posterior annular [...] Normal central spinal canal and lateral recesses. Cajy-sx-alzhwzsg left neural foraminal stenosis from a disc [...] moderate degree at L3-L4 and L5-S1 and zkpp-wj-frpumwbh degree at L4-L5.. Suspected small posterior annular [...] Normal central spinal canal and lateral recesses. Hvjd-qy-ikklhaef left neural foraminal stenosis from a disc osteophyte complex. The right neural foramen is patent. Mild to moderate facet osteoarthritis. Postcontrast images show no abnormal areas of contrast enhancement. The visible portions of the bilateral kidneys and the abdominal aorta are unremarkable. IMPRESSION 1. Moderate disc degeneration at L3-L4 and L5-S1 and pkce-el-eyyyhpac L4-L5 disc degeneration. 2. No evidence of central spinal stenosis or lateral recess stenosis. No significant neural foraminal stenosis. 3. No abnormal areas of contrast enhancement. Finalized by Vladimir Crenshaw M.D. on 04/30/2017 8:12 AM. Dictated by Vladimir Crenshaw M.D. on 04/30/2017 7:44 AM. * MRI HEAD WO/W CONTRAST (04/29/2017 7:46 PM) Specimen Performing Laboratory [facility] RESULTS Impressions 1. Mild multifocal left cerebral convexity subarachnoid [...] Small simple appearing left convexity subdural effusion. Discussed with Dr. Myers at 9:19 AM 04/30/2017 Finalized by Shane Shetty M.D. on 04/30/2017 9:19 AM. Dictated by Shane Shetty M.D. on 04/30/2017 8:55 AM. Narrative EXAM: MRI BRAIN HISTORY: , STROKE, TECHNIQUE: Multiplanar and multisequence MR imaging of the head was performed. This was done both before and after the administration of MultiHancecontrast. COMPARISON: CT head April 18, 2017 FINDINGS: Dr. Shane Shetty M.D. has personally reviewed these images and formulated the interpretations and opinions expressed in this report. There is interval improvement in multifocal subarachnoid hemorrhage along the bilateral cerebral convexities with persistent localized areas of subacute subarachnoid hemorrhage along the inferior left frontal and left postcentral sulci. There are residual multifocal areas of subarachnoid hemosiderin deposition along the bilateral cerebral convexities. There is a dominant enhancing nodular lesion within the medial right cerebellar hemisphere measuring up to 1.9 cm (image 5 series 12). There are multiple additional small enhancing nodular foci with associated mild multifocal vasogenic edema involving the juxtacortical cerebral hemispheres, basal nuclei, and brainstem. Small simple appearing left convexity subdural effusion measures up to 5 mm thickness. Improving left periorbital contusion is noted. The ventricles and subarachnoid spaces are normal in size and configuration. There is no midline shift or herniation. The vascular flow-voids are unremarkable. Diffusion weighted imaging is not indicative of acute or recent infarct. Right mastoid effusion is noted. Left maxillary sinus retention cyst or polyp. Procedure Note Interface, Radiant Results - 04/30/2017 9:22 AM CDT EXAM: MRI BRAIN HISTORY: , STROKE, TECHNIQUE: Multiplanar and multisequence MR imaging of the head was performed. This was done both before and after the administration of MultiHancecontrast. COMPARISON: CT head April 18, 2017 FINDINGS: Dr. Shane Shetty M.D. has personally reviewed these images and formulated the interpretations and opinions expressed in this report. There is interval improvement in multifocal subarachnoid hemorrhage along the bilateral cerebral convexities with persistent localized areas of subacute subarachnoid hemorrhage along the inferior left frontal and left postcentral sulci. There are residual multifocal areas of subarachnoid hemosiderin deposition along the bilateral cerebral convexities. There is a dominant enhancing nodular lesion within the medial right cerebellar hemisphere measuring up to 1.9 cm (image 5 series 12). There are multiple additional small enhancing nodular foci with associated mild multifocal vasogenic edema involving the juxtacortical cerebral hemispheres, basal nuclei, and brainstem. Small simple appearing left convexity subdural effusion measures up to 5 mm thickness. Improving left periorbital contusion is noted. The ventricles and subarachnoid spaces are normal in size and configuration. There is no midline shift or herniation. The vascular flow-voids are unremarkable. Diffusion weighted imaging is not indicative of acute or recent infarct. Right mastoid effusion is noted. Left maxillary sinus retention cyst or polyp. IMPRESSION 1. Mild multifocal left cerebral convexity subarachnoid [...] Small simple appearing left convexity subdural effusion. Discussed with Dr. Myers at 9:19 AM 04/30/2017 Finalized by Shane Shetty M.D. on 04/30/2017 9:19 AM. Dictated by Shane Shetty M.D. on 04/30/2017 8:55 AM. * POC GLUCOSE (04/29/2017 4:31 PM) Component Value Ref Range Glucose, POC 119 (H) 70 - 100 MG/DL Specimen Performing Laboratory [facility] [address] [place] [id number] * POC GLUCOSE (04/29/2017 11:51 AM) Component Value Ref Range Glucose, POC 145 (H) 70 - 100 MG/DL Specimen Performing Laboratory [facility] [address] [place] [address] * BASIC METABOLIC PANEL (04/29/2017 7:35 AM) Component Value Ref Range Sodium 137 137 - 147 MMOL/L Potassium 3.9 3.5 - 5.1 MMOL/L Chloride 106 98 - 110 MMOL/L CO2 25 21 - 30 MMOL/L Anion Gap 6 3 - 12 Glucose 82 70 - 100 MG/DL Blood Urea Nitrogen 23 7 - 25 MG/DL Creatinine 0.77 0.4 - 1.00 MG/DL Calcium 8.9 8.5 [...] Specimen Performing Laboratory [facility] [address] [place] [address] * CBC (04/29/2017 7:35 AM) Component Value Ref Range White Blood Cells 4.6 4.5 - 11.0 K/UL RBC 2.21 (L) 4.0 - 5.0 M/UL Hemoglobin 7.9 (L) 12.0 - 15.0 GM/DL Hematocrit 23.1 (L) 36 - 45 % MCV 104.6 (H) 80 - 100 FL MCH 35.8 (H) 26 - 34 PG MCHC 34.2 32.0 - 36.0 G/DL RDW 19.5 (H) 11 - 15 % Platelet Count 78 (L) 150 - 400 K/UL MPV 7.5 7 - 11 FL Specimen Performing Laboratory [facility] [address] [place] [id number] * LIPID PROFILE (04/29/2017 7:35 AM) Component [...] Villatoro et al. Am J. Cardiol. 2008, [id number]:[id number]. The "goal" should be less than 130 mg/dL, but will vary according to risk factors. Specimen Performing Laboratory [facility] [address] [place] [id number] * HEMOGLOBIN A1C (04/29/2017 7:35 AM) Component Value Ref Range Hemoglobin A1C 5.5 4.0 - 6.0 % Comment: The ADA recommends that most patients with type 1 and type 2 diabetes maintain an A1c level <7%. Specimen Performing Laboratory [facility] [address] [place] [phone] * POC GLUCOSE (04/29/2017 7:13 AM) Component Value Ref Range Glucose, POC 84 70 - 100 MG/DL Specimen Performing Laboratory [facility] [address] [place] [id number] * POC GLUCOSE (04/28/2017 10:08 PM) Component Value Ref Range Glucose, POC 91 70 - 100 MG/DL Specimen Performing Laboratory [facility] [address] [place] [phone] * POC GLUCOSE (04/28/2017 9:34 PM) Component Value Ref Range Glucose, POC 61 (L) 70 - 100 MG/DL Specimen Performing Laboratory [facility] [address] [place] [id number] * POC GLUCOSE (04/28/2017 9:06 PM) Component Value Ref Range Glucose, POC 67 (L) 70 - 100 MG/DL Specimen Performing Laboratory [facility] [address] [place] [address] * POC GLUCOSE (04/28/2017 5:56 PM) Component Value Ref Range Glucose, POC 142 (H) 70 - 100 MG/DL Specimen Performing Laboratory [facility] [address] [place] [phone] * POC GLUCOSE (04/28/2017 1:02 PM) Component Value Ref Range Glucose, POC 120 (H) 70 - 100 MG/DL Specimen Performing Laboratory [facility] [address] [place] [phone] * POC GLUCOSE (04/28/2017 8:57 AM) Component Value Ref Range Glucose, POC 149 (H) 70 - 100 MG/DL Specimen Performing Laboratory [facility] [address] [place], [place] [id number] * FREE T4-FREE THYROXINE (04/28/2017 6:58 AM) Component Value Ref Range T4-Free 0.9 0.6 - 1.6 NG/DL Specimen Performing Laboratory [facility] [address] [place] [id number] * BASIC METABOLIC PANEL (04/28/2017 6:58 AM) Component Value Ref Range Sodium 134 (L) 137 - 147 MMOL/L Potassium 3.7 3.5 - 5.1 MMOL/L Chloride 103 98 - 110 MMOL/L CO2 29 21 - 30 MMOL/L Anion Gap 2 (L) 3 - 12 Glucose 102 (H) 70 - 100 MG/DL Blood Urea Nitrogen 21 7 - 25 MG/DL Creatinine 0.78 0.4 - 1.00 MG/DL Calcium 8.9 8.5 [...] Pharmacist for questions. Specimen Performing Laboratory Blood [facility] [address] [place], [place] [id number] * CBC (04/28/2017 6:58 AM) Component Value Ref Range White Blood Cells 4.4 (L) 4.5 - 11.0 K/UL RBC 2.05 (L) 4.0 - 5.0 M/UL Hemoglobin 7.4 (L) 12.0 - 15.0 GM/DL Hematocrit 21.1 (L) 36 - 45 % MCV 102.7 (H) 80 - 100 FL MCH 36.0 (H) 26 - 34 PG MCHC 35.1 32.0 - 36.0 G/DL RDW 19.0 (H) 11 - 15 % Platelet Count 69 (L) 150 - 400 K/UL MPV 7.5 7 - 11 FL Specimen Performing Laboratory Blood MAIN LAB [address] [place] [address] * TSH WITH FREE T4 REFLEX (04/28/2017 6:58 AM) Component Value Ref Range TSH 8.555 (H) 0.35 - 5.00 MCU/ML Specimen Performing Laboratory Blood [facility] [address] [place] [address] * TOTAL T3 (TRIIODOTHYRONINE) (04/28/2017 6:58 AM) Component Value Ref Range T3 (Total) 56 (L) 87 - 180 NG/DL Specimen Performing Laboratory Blood MAIN [facility] [address] [place] [address] * POC GLUCOSE (04/27/2017 8:46 PM) Component Value Ref Range Glucose, POC 97 70 - 100 MG/DL Specimen Performing Laboratory MAIN LAB [address] [place], [place] [id number] * POC GLUCOSE (04/27/2017 5:08 PM) Component Value Ref Range Glucose, POC 129 (H) 70 - 100 MG/DL Specimen Performing Laboratory MAIN LAB [address] [place] [address] in this encounter Visit Diagnoses Diagnosis Subarachnoid hemorrhage following injury, with loss of consciousness (HCC) - Primary Subarachnoid hemorrhage following injury, without mention of open intracranial wound, loss of consciousness of unspecified duration 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 DM (diabetes mellitus) Type II or unspecified type diabetes mellitus without mention of complication , not stated as uncontrolled HLD (hyperlipidemia) Other and unspecified hyperlipidemia HTN (hypertension) Unspecified essential hypertension Hypothyroid Unspecified hypothyroidism 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 Thrombocytopenia (HCC) Thrombocytopenia, unspecified Pancytopenia (HCC) Other pancytopenia Vision impairment Unspecified visual loss SAH (subarachnoid hemorrhage) (HCC) Subarachnoid hemorrhage Traumatic brain injury (HCC) Intracranial injury of other and unspecified nature, without mention of open intracranial wound, unspecified state of consciousness Lesion of cerebellum Other conditions of brain AML (acute myelogenous leukemia) Acute myeloid leukemia, without mention of having achieved remission 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 Traumatic compression fracture of T11 thoracic vertebra (HCC) Closed displaced intertrochanteric fracture of left femur (HCC) Closed fracture of intertrochanteric section of femur Cognitive impairment Unspecified persistent mental disorders due to conditions classified elsewhere Impaired mobility and activities of daily living Mechanical problems with limbs in this encounter Admitting Diagnoses Diagnosis TBI SAH (subarachnoid hemorrhage) (HCC) in this encounter Administered Medications Medication Order MAR Action Action Date Dose Rate Site acetaminophen (TYLENOL) tablet 650 mg Given 04/28/2017 650 mg 650 mg, Oral, EVERY 4 HOURS PRN, 13:58 CDT Starting Wed04/27/17 at 1527, Until Wed04/30/17 at 1714, Pain non-opioid: may be used alone or in combination with opioid analgesia, Temp > 38.5 C, TOTAL ACETAMINOPHEN DOSE NOT TO EXCEED 4GM DAILY Given 04/29/2017 650 mg 09:07 CDT Given 04/30/2017 650 mg 09:35 CDT acyclovir (ZOVIRAX) tablet 800 mg Given 04/29/2017 800 mg 800 mg, Oral, TWICE DAILY, First dose on 09:06 CDT Wed04/27/17 at 2100, Until Discontinued Given 04/29/2017 800 mg 21:57 CDT Given 04/30/2017 800 mg 08:27 CDT brimonidine (ALPHAGAN P) 0.15 % Given 04/29/2017 1 drop ophthalmic solution 1 Drop 22:06 CDT 1 Drop, Left Eye, THREE TIMES DAILY, First dose on Wed04/27/17 at 1600, Until Discontinued Given 04/30/2017 1 drop 08:31 CDT Given 04/30/2017 1 drop 15:41 CDT carboxymethylcellulose (REFRESH PLUS) Given 04/29/2017 1 drop 0.5 % ophthalmic solution 1 Drop 21:57 CDT 1 Drop, Both Eyes, FOUR TIMES DAILY, First dose on Wed04/27/17 at 1700, Until Discontinued Given 04/30/2017 1 drop 08:28 CDT Given 04/30/2017 1 drop 13:44 CDT cholecalciferol (VITAMIN D-3) tablet 800 Given 04/28/2017 800 Units Units 13:03 CDT 800 Units, Oral, DAILY, First dose on Wed04/28/17 at 0900, Until Discontinued Given 04/30/2017 800 Units 08:31 CDT docusate (COLACE) capsule 100 mg Given 04/28/2017 100 mg 100 mg, Oral, TWICE DAILY, First dose on 08:55 CDT Wed04/27/17 at 2100, Until Discontinued, Hold for loose stools Given 04/29/2017 100 mg 09:06 CDT ferrous sulfate (FEOSOL, FEROSUL) tablet Given 04/29/2017 325 mg 325 mg 12:31 CDT 325 mg, Oral, THREE TIMES DAILY WITH MEALS, First dose on Wed04/27/17 at 1800, Until Discontinued, Each 325mg ferrous sulfate delivers 65mg elemental iron. Given 04/30/2017 325 mg 08:29 CDT Given 04/30/2017 325 mg 12:39 CDT gadobenate dimeglumine (MULTIHANCE) Given 04/29/2017 13 mL injection 13 mL 19:28 CDT 13 mL, Intravenous, ONCE, 1 dose, Hilda 04/29/17 at 2000, NOTE: This is a HIGH ALERT Medication. insulin aspart (NOVOLOG FLEXPEN) Given 04/28/2017 1 Units Abdominal injection PEN 0-7 Units 08:57 CDT Tissue 0-7 Units, Subcutaneous, THREE TIMES DAILY WITH MEALS, First dose on Wed04/27/17 at 1800, Until Discontinued, -POC glucose 140-180mg/dL at , , administer 1 unit insulin, at 21, 03* administer 0 units. -POC glucose 181-220mg/dL at , , administer 2 units insulin, at 21, 03* administer 1 unit. -POC glucose 221-260mg/dL at , , administer 3 units insulin, at 21, 03* administer 2 units. -POC glucose 261-300mg/dL at , , administer 4 units insulin, at 21, 03* administer 3 units. -POC glucose 301-350mg/dL at , , administer 5 units insulin, at , 03* administer 4 units. -POC glucose 351-400mg/dL at , , administer 6 units insulin, at , 03* administer 5 units. -POC glucose >400mg/dL at , , administer 7 units insulin, at 21, 03* administer 6 units. *only if ordered 5x's daily For POCT glucose >350mg/dL give correction bolus and recheck POCT glucose in 2 hours. If POCT glucose at 2 hours >300mg/dL call physician for further orders. For patients who are not eating meals, continue to administer the appropriate correction factor. NOTE: This is a HIGH ALERT Medication. Given 04/28/2017 1 Units Arm, Right 17:57 CDT Given 04/29/2017 1 Units Arm, Left 12:30 CDT insulin aspart (NOVOLOG FLEXPEN) Given 04/29/2017 3 Units Arm, Left injection PEN 3 Units 12:31 CDT 3 Units, Subcutaneous, THREE TIMES DAILY WITH MEALS, First dose on Wed04/29/17 at 1200, Until Discontinued, - Post Meal Dosing: give scheduled Aspart (Novolog) insulin at the completion of meal based on % eaten. Adjust dose based on % of meal eaten. - >50% of meal eaten, give scheduled dose - 10-50% of meal eaten, give 1/2 of schedule dose (round dose to the nearest unit) - <10% of meal eaten, hold scheduled dose. NOTE: Rapid acting insulins should be given with food/meal. Use caution when patient is NPO. NOTE: This is a HIGH ALERT Medication. Given 04/30/2017 3 Units Arm, Right 08:43 CDT Given 04/30/2017 3 Units Arm, Right 12:35 CDT insulin aspart (NOVOLOG FLEXPEN) Given 04/28/2017 4 Units Abdominal injection PEN 4 Units 08:56 CDT Tissue 4 Units, Subcutaneous, THREE TIMES DAILY WITH MEALS, First dose on Wed04/27/17 at 1800, Until Discontinued, - Post Meal Dosing: give scheduled Aspart (Novolog) insulin at the completion of meal based on % eaten. Adjust dose based on % of meal eaten. - >50% of meal eaten, give scheduled dose - 10-50% of meal eaten, give 1/2 of schedule dose (round dose to the nearest unit) - <10% of meal eaten, hold scheduled dose. NOTE: Rapid acting insulins should be given with food/meal. Use caution when patient is NPO. NOTE: This is a HIGH ALERT Medication. Given 04/28/2017 4 Units Arm, Right 13:03 CDT Given 04/28/2017 4 Units Arm, Right 17:57 CDT insulin glargine (LANTUS SOLOSTAR) Given 04/28/2017 10 Units Abdominal injection PEN 10 Units 22:57 CDT Tissue 10 Units, Subcutaneous, DAILY, First dose on Wed04/28/17 at 2100, Until Discontinued, Continue if NPO. DO NOT mix with other insulins -- Do not mix with other insulins -- NOTE: This is a HIGH ALERT Medication. Given 04/29/2017 10 Units Abdomen:RUQ 22:06 CDT levoFLOXacin (LEVAQUIN) tablet 750 mg Given 04/28/2017 750 mg 750 mg, Oral, EVERY 24 HOURS, 2 doses, 13:02 CDT First dose on Wed04/28/17 at 1300, Last dose on Wed04/29/17 at 1300, NURSING: Please educate patient and document: Give 1 hour before or 2 hours after meals. If patient is receiving tube feedings, hold tube feedings 1 hour before and 2 hours after dose. Do not give within 2 hours of antacids, magnesium, calcium, iron, zinc, or vitamins containing these minerals. Given 04/29/2017 750 mg 12:31 CDT levothyroxine (SYNTHROID) tablet 50 mcg Given 04/28/2017 50 mcg 50 mcg, Oral, DAILY 30MIN BEFORE 06:47 CDT BREAKFAST, First dose on Wed04/27/17 at 1615, Until Discontinued, Give 1 hour before a meal. If patient is receiving tube feedings, hold tube feed 1hr before and 1hr after dose. Given 04/29/2017 50 mcg 05:52 CDT magnesium oxide (MAG-OX) tablet 400 mg Given 04/29/2017 400 mg 400 mg, Oral, TWICE DAILY, First dose on 09:06 CDT Wed04/27/17 at 2100, Until Discontinued, Delivers 241.3mg elemental magnesium per tab Given 04/29/2017 400 mg 21:57 CDT Given 04/30/2017 400 mg 08:29 CDT melatonin tablet 3 mg Given 04/27/2017 3 mg 3 mg, Oral, AT BEDTIME DAILY, First dose 21:38 CDT on Wed04/27/17 at 2100, Until Discontinued Given 04/28/2017 3 mg 20:53 CDT Given 04/29/2017 3 mg 21:57 CDT neomycin/polymyxin/dexamethasone Given 04/29/2017 1 drop (MAXITROL) ophthalmic suspension 1 Drop 22:06 CDT 1 Drop, Left Eye, THREE TIMES DAILY, First dose on Wed04/27/17 at 1615, Until Discontinued Given 04/30/2017 1 drop 08:31 CDT Given 04/30/2017 1 drop 15:40 CDT oxyCODONE (ROXICODONE, OXY-IR) tablet 5 Given 04/28/2017 5 mg mg 08:55 CDT 5 mg, Oral, EVERY 3 HOURS PRN, Starting Wed04/27/17 at 1527, Until Wed04/30/17 at 1714, Pain PO Given 04/28/2017 5 mg 13:58 CDT propranolol (INDERAL) tablet 10 mg Given 04/30/2017 10 mg 10 mg, Oral, THREE TIMES DAILY, First 08:29 CDT dose on Wed04/30/17 at 0900, Until Discontinued, Hold for heart rate < 60 bpm Given 04/30/2017 10 mg 15:41 CDT propranolol (INDERAL) tablet 15 mg Given 04/29/2017 15 mg 15 mg, Oral, THREE TIMES DAILY, First 21:57 CDT dose on Wed04/29/17 at 2100, Until Discontinued, Hold for heart rate < 60 bpm propranolol (INDERAL) tablet 20 mg Given 04/28/2017 20 mg 20 mg, Oral, THREE TIMES DAILY, First 20:51 CDT dose on Wed04/27/17 at 1600, Until Discontinued, Hold for heart rate < 60 bpm Given 04/29/2017 20 mg 09:06 CDT Given 04/29/2017 20 mg 14:53 CDT traZODone (DESYREL) tablet 25 mg Given 04/27/2017 25 mg 25 mg, Oral, AT BEDTIME DAILY, First 21:39 CDT dose on Wed04/27/17 at 2100, Until Discontinued Given 04/28/2017 25 mg 20:54 CDT Given 04/29/2017 25 mg 21:57 CDT in this encounter
--- OUTSIDE RECORDS SUMMARY | 2017-07-30 04:09 | XMS REPORT | Encounter Summary ---
Author Author [facility] Organization [facility] Address Unknown Phone Unavailable Care Team Providers Care Pain Management Nurse Practitioner Name Role Phone PCP Unavailable Encounter Details Date Type Department Care Team Description 04/29/2017 Procedure Pass [facility] [address] [place] [address] Social History Tobacco Use Types Packs/Day Years Used Date Never Smoker Smokeless Tobacco: Never Used Alcohol Use Drinks/Week oz/Week Comments No 0 Standard 0.0 drinks or equivalent Sex Assigned at Date Recorded Not on file as of this encounter Functional Status Functional Status Response Date of Assessment Does the patient have a hearing impairment: Yes 04/27/2017 Does the patient have a visual impairment: No 04/27/2017 Does the patient have impaired ambulation: Yes 04/27/2017 Does the patient have an activity of daily living Yes 04/27/2017 (ADL) impairment: Does the patient have an [...]
--- OUTSIDE RECORDS SUMMARY | 2017-07-30 04:09 | XMS REPORT | Encounter Summary ---
Author Author [facility] Organization [facility] Address Unknown Phone Unavailable Care Team Providers Care Marine Animal Trainer Name Role Phone PCP Unavailable Encounter Details Date Type Department Care Team Description 04/29/2017 Procedure Pass [facility] [address] [place] [address] Social History Tobacco Use Types Packs/Day Years [...]
--- NOTE | 2017-07-30 04:12 | ED Fall/Injury ---
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 PT DENIES LOC. BRUISING ET SWELLING NOTED TO LT SIDE OF FACE. NO OTHER C/O VOICED Source: patient, family Exam Limitations: no limitations History of Present Illness Time seen by provider: 03:46 Initial Comments This 61-year-old woman presents to the emergency room accompanied by her family after having a fall in the bathroom at home. She walks with a walker and stumbled going into the bathroom. She denies any prodrome. She struck her left face on the tile floor and has an obvious contusion with swelling. She has a contusion on the left wrist. She denies any neck pain or other significant injury. Patient has been recently treated by an oncologist in [place] for leukemia. 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 She has no local physician. Location Injury Occurred: HOME Allergies and Home Medications Allergies Coded Allergies: No Known Drug Allergies (Unverified , 10/08/14) Home Medications Atovaquone 750 Mg/5 Ml Oral.susp, 10 ML PO DAILY, (Reported) Carboxymethylcellulose Sodium 15 Ml Drops, 1 DROP OU QID PRN for DRY EYES, ( Reported) Cholecalciferol (Vitamin D3) 1,000 Unit Tablet, 2,000 UNIT PO DAILY, (Reported) TAKES 2 (1,000 UNIT) TABLETS Clonazepam 0.5 Mg Tablet, 0.25 MG PO HS PRN for ANXIETY, (Reported) TAKES 1/2 (0.5MG) TABLET Ergocalciferol (Vitamin D2) 50,000 Unit Capsule, 50,000 UNIT PO Tu, (Reported) Insulin Aspart 300 Units/3 Ml Solution, 12 UNITS SQ AC, (Reported) Insulin Glargine,Hum.rec.anlog 100 Unit/1 Ml Insuln.pen, 12 UNITS SQ HS, ( Reported) Levofloxacin 500 Mg Tablet, 500 MG PO DAILY for 10 Days Prescribed by: NAINA SU on 11/09/16 1549 Levothyroxine Sodium 50 Mcg Tablet, 50 MCG PO DAILY, (Reported) Magnesium Oxide 400 Mg Tablet, 400 MG PO BID, (Reported) Mineral Oil/Petrolatum,White 114 Gm Oint...g., TP BID PRN for HANDS/FEET, ( Reported) Omeprazole 40 Mg Capsule.dr, 40 MG PO DAILY, (Reported) Ondansetron 8 Mg Tab.rapdis, 8 MG PO Q8H PRN for NAUSEA, (Reported) Posaconazole 100 Mg Tablet.dr, 300 MG PO DAILY, (Reported) TAKES 3 (100MG) TABLETS Potassium Chloride 20 Meq Tab.er.prt, 40 MEQ PO BID, (Reported) TAKES 2 (20MEQ) TABLETS Prednisone 10 Mg Tab, 20 MG PO DAILY, (Reported) TAKES 2 (10MG) TABLETS Sodium Bicarbonate 650 Mg Tablet, 1,300 MG PO BID, (Reported) TAKES 2 (650MG) TABLETS Valganciclovir HCl 450 Mg Tablet, 900 MG PO DAILY, #1 (Reported) TAKES 2 (450MG) TABLETS [Amitrip/Rashaad/Emu Oil] , TOP Q8H PRN for HANDS/FEET, (Reported) AMITRIPTYLINE/GABAPENTIN/EMU OIL 4/4/10% Constitutional: no symptoms reported Eyes: See HPI, Other (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) Ears, Nose, Mouth, Throat: see HPI Respiratory: no symptoms reported Cardiovascular: no symptoms reported Gastrointestinal: no symptoms reported Genitourinary: no symptoms reported : No Musculoskeletal: see HPI Skin: see HPI Psychiatric/Neurological: See HPI Past Usaogke-Itrgbg-Xvyiek Hx Patient Social History Alcohol Use: Denies Use Recreational Drug Use: No Smoking Status: Never a Smoker Recent Foreign Travel: No Contact w/Someone Who Travel: No 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) Physical Abuse: No Sexual Abuse: No Mistreated: No Fear: No Immunizations Up To Date Tetanus Booster (TDap): Less than 5yrs Seasonal Allergies Seasonal Allergies: No Surgeries History of Surgeries: Yes (HIP FX) Surgeries: Section Respiratory History of Respiratory Disorde: No Currently Using CPAP: No Currently Using BIPAP: No Cardiovascular History of Cardiac Disorders: Yes Cardiac Disorders: High Cholesterol, Hypertension Neurological History of Neurological Disord: Yes Neurological Disorders: Stroke Reproductive System Hx Reproductive Disorders: No HIV/AIDS: No Genitourinary History of Genitourinary Disor: Yes Genitourinary Disorders: UTI-Chronic Gastrointestinal History of Gastrointestinal Di: Yes Gastrointestinal Disorders: Gastroesophageal Reflux, Chronic Constipation Musculoskeletal History of Musculoskeletal Dis: Yes Endocrine History of Endocrine Disorders: Yes Endocrine Disorders: Diabetes, Insulin dep HEENT History of HEENT Disorders: No Loss of Vision: Denies Hearing Impairment: Denies Cancer History of Cancer: Yes Cancer: Leukemia Did You Recieve Any Treatments: Yes Type of Tx Receive: Chemotherapy Psychosocial History of Psychiatric Problem: Yes Behavioral Health Disorders: Anxiety Suicide Risk Score: 0 Integumentary History of Skin or Integumenta: No Blood Transfusions History of Blood Disorders: No Adverse Reaction to a Blood Tr: No (HAS HAD TRANSFUSIONS WITH NO REACTION) Family Medical History Significant Family History: No Pertinent Family Hx Family Medial History: Alcoholism 19 FATHER Diabetes mellitus daughter Headache disorder 19 MOTHER Thyroid disease daughter Physical Exam Vital Signs Vital Sign - Last 12Hours 07/30/17 03:47 Temp 98.6 Pulse 93 Resp 18 B/P (MAP) 122/65 Pulse Ox 97 O2 Delivery Room Air Capillary Refill : General Appearance: WD/WN, no apparent distress HEENT: PERRL/EOMI, TMs normal, pharynx normal, other (contusion with bruising and swelling on the left face and left periorbital region) Neck: non-tender, supple, normal inspection Cardiovascular: regular rate, rhythm, no edema, systolic murmur Respiratory: lungs clear, normal breath sounds, no respiratory distress, no accessory muscle use Gastrointestinal: non tender, soft Extremities: non-tender, no pedal edema, other (contusion on the dorsum of the left wrist. No range of motion limitations or pain. Minimal tenderness to palpation.) Neurologic/Psychiatric: no motor/sensory deficits, alert, normal mood/affect, oriented x 3, other (left eye blindness) Skin: normal color, warm/dry, ecchymosis [place] Coma Score Best Eye Response: (4) Open Spontaneously Best Verbal Response: (5) Oriented Best Motor Response: (6) Obeys Commands [place] Total: 15 Date of ETT Placement: Apr 16, 2017 Time of ETT Placement: 1516 Laceration Repair : Suture Size: 5-0 Progress/Results/Core Measures Results/Orders Lab Results Laboratory Tests Test 07/30/17 04:01 07/30/17 04:08 Range/Units Glucometer 163 H 70-110 MG/DL Urine Color YELLOW Urine Clarity CLEAR Urine pH 5 5-9 Urine Specific [place] 1.015 L 1.016-1.022 Urine Protein 2+ H NEGATIVE Urine Glucose (UA) NEGATIVE NEGATIVE Urine Ketones NEGATIVE NEGATIVE Urine Nitrite NEGATIVE NEGATIVE Urine Bilirubin NEGATIVE NEGATIVE Urine Urobilinogen NORMAL NORMAL MG/DL Urine Leukocyte Esterase NEGATIVE NEGATIVE Urine RBC (Auto) 2+ H NEGATIVE Urine RBC NONE /HPF Urine WBC NONE /HPF Urine Squamous Epithelial Cells 0-2 /HPF Urine Crystals NONE /LPF Urine Bacteria NEGATIVE /HPF Urine Casts NONE /LPF Urine Mucus NEGATIVE /LPF Urine Culture Indicated NO My Orders Orders - SUMANTH GARCIA MD Ua Culture If Indicated (07/30/17 04:02) Ct Head/Cervical Spine Wo (07/30/17 04:02) Accucheck Stat ONCE (07/30/17 04:02) Vital Signs/I&O Vital Sign - Last 12Hours 07/30/17 03:47 Temp 98.6 Pulse 93 Resp 18 B/P (MAP) 122/65 Pulse Ox 97 O2 Delivery Room Air Progress Note #1: Time: 04:08 Progress Note Fingerstick blood sugar was 163. UA and CT of the head and neck have been ordered. Progress Note #2: Time: 05:07 Progress Note UA and CT of the head and C-spine were reviewed. No abnormalities were found. Diagnostic Imaging Diagonstic Imaging: CT Plain Films/CT/US/NM/MRI: c-spine, head Comments CT head and C-spine viewed by me and report reviewed. Discussed with the radiologist. No acute injuries identified. Departure Impression Impression: Primary Impression: Fall on same level Qualified Codes: W18.30XA - Fall on same level, unspecified, initial encounter Additional Impressions: Contusion of face Qualified Codes: S00.83XA - Contusion of other part of head, initial encounter Contusion of wrist, left Qualified Codes: S60.212A - Contusion of left wrist, initial encounter Disposition: 01 HOME, SELF-CARE Condition: Stable Departure-Patient Inst. Decision time for Depature: 05:08 Referrals: NO,LOCAL PHYSICIAN (PCP/Family) Primary Care Physician Patient Instructions: Contusion (DC) Add. Discharge Instructions: No serious injuries were found on your CT scan. You may use Tylenol or ibuprofen for pain. Icing in 15 minute intervals may be helpful for pain and swelling. Return to care if you have worsening problems. All discharge instructions reviewed with patient and/or family. Voiced understanding. SUMANTH GARCIA MD Jul 30, 2017 04:12
[2017-07-30 04:16] LABS: BILIRUBIN,URINE NEGATIVE (NEGATIVE); KETONES,URINE NEGATIVE (NEGATIVE); LEUKOCYTE ESTERASE ,URINE NEGATIVE (NEGATIVE); NITRITE,URINE NEGATIVE (NEGATIVE); PH,URINE 5 (5-9); PROTEIN,URINE 2+ (NEGATIVE); UROBILINOGEN,URINE NORMAL (NORMAL)
[2017-07-30 04:24] LABS: SQUAMOUS EPITHELIAL CELL,UR 0-2 /HPF
[2017-07-30 05:15] VITALS: BP 125/60
--- NOTE | 2017-07-30 08:01 | Diagnostic Imaging Report ---
PROCEDURE: CT head and CT cervical spine without contrast. TECHNIQUE: Multiple contiguous axial images were obtained through the brain and cervical spine without the use of intravenous contrast. Sagittal and coronal reformations through the cervical spine were then performed. INDICATION: Fall. COMPARISON: 04/16/17. CT HEAD: There is a minimal curvilinear hyperdensity seen along the posterior aspect of the left sylvian fissure and another hyper density seen also along the medial inferior aspect of the right cerebellar hemisphere. These are within the subarachnoid space and there is concern of a tiny subarachnoid hemorrhage. Note is made of extensive subarachnoid hemorrhage following a fall that was seen on 04/16/2017 exam. There is no intraparenchymal hematoma. No subdural or epidural hematoma is identified. The brain parenchyma demonstrates periventricular and deep white matter hypodensities compatible with chronic microvascular ischemic changes. The calvarium and the orbits appear grossly unremarkable. Near the lateral aspect of the left orbit however there is a subcutaneous small hematoma. There is also near complete obliteration of the left maxillary sinus, new from the prior exam, which could be sequela of a sinus infection or polyposis. No obvious fracture within the included portions of the sinus in this head CT scan. CT CERVICAL SPINE: There is straightening of the lordotic curvature which could be positional. Alignment of the posterior spinal line, at the facet joints, at the atlantooccipital joints and at the lateral masses of C1 and C2 is satisfactory. No widening of the predental space. The vertebral body heights are preserved. Disc heights are also preserved. No fracture is seen. The thyroid gland demonstrates a focal calcification in the left thyroid lobe. No obvious other abnormality is seen in the soft tissues around the cervical spine. IMPRESSION: CT HEAD: 1. Tiny hyperdense foci along the posterior aspect of the left sylvian fissure and at the medial inferior aspect of the right cerebellar hemisphere are concerning for small subarachnoid hemorrhage. 2. Small subcutaneous hematoma along the lateral aspect of the left orbit. 3. Near complete obliteration of the left maxillary sinus is favored to be related to infection or polyposis. If there is a sign of injury about the left maxillary sinus, then dedicated CT can better evaluate. CT CERVICAL SPINE: No fracture seen. Discrepancy in this reading with the [facility] report on the CT head reading was discussed with Dr. Taylor at 7:35 AM. Dictated by: Dictated on workstation # [id number]
== END 2017-07-30 05:15 | disposition home or self-care (01) ==
LOC: EDUNIT# 03:40 → ER 03:44
DX: S00.83XA Contusion of other part of head, initial encounter (principal); S60.212A Contusion of left wrist, initial encounter; E78.00 Pure hypercholesterolemia, unspecified; I10 Essential (primary) hypertension; F41.9 Anxiety disorder, unspecified; K21.9 Gastro-esophageal reflux disease without esophagitis; E11.9 Type 2 diabetes mellitus without complications; Z85.6 Personal history of leukemia; Z87.19 Personal history of other diseases of the digestive system; Z86.73 Personal history of transient ischemic attack (TIA), and cerebral infarction without residual deficits; Z79.4 Long term (current) use of insulin; Z87.59 Personal history of other complications of pregnancy, childbirth and the puerperium; W01.198A Fall on same level from slipping, tripping and stumbling with subsequent striking against other object, initial encounter; Y92.002 Bathroom of unspecified non-institutional (private) residence as the place of occurrence of the external cause
CPT/HCPCS: 70450; 72125; 81000; 82962; 99282

== ENCOUNTER → 2017-10-26 | Outpatient (CLI) | payer MEDICARE, MEDICAID ==
[~2017-10-26] MED LIST changes: +ACYC400T PO; +AMLO10TA2 PO; +BENZ-36 PO; +CHOL10008 PO; +CITA20TA7 PO; +CLIN300C11 PO; +INSU100I29 SC; +LEUC25TA PO; +LEVO75TA6 PO; +MONT10TA24 PO; +NEO/3.5O18 OS; +OMEP20CA12 PO; +PENI250T2 PO; +PRED10TA22 PO; +PYRI25TA PO
--- NOTE | 2017-10-26 13:02 | Diagnostic Imaging Report ---
EXAMINATION: Digital mammogram bilateral screening with CAD. INDICATION: Screening. COMPARISON: 06/14/2013. PERSONAL HISTORY: At this time, there are no current complaints. FINDINGS: Both breasts do seem much smaller than noted on the prior exam. Correlation with the patient's weight loss history would be recommended. Also, in the interval since the prior study, extensive vascular calcifications have developed in both breasts. This finding is nonspecific. The fibroglandular tissue in both breasts is dense. This does limit the sensitivity of this exam. On the MLO view of the left breast in the superior aspect of the breast roughly 10 cm from the nipple, there is a small area of increased density. There is no corresponding abnormality identified with certainty on the craniocaudad view but this density does seem to persist somewhat on the tomographic views. I suspect that this finding is related to fibroglandular tissue alone. Even so, I would recommend that a compression view of this area be obtained in the MLO projection as well as a true lateral view of the left breast for further study. An XCC view should also be performed. If this density persists, then ultrasound should be obtained as well. The overall appearance of the breasts has not changed significantly otherwise. There is no primary or secondary sign of malignancy noted. IMPRESSION: 1. Additional mammographic views of the left breast would be recommended for further study. Ultrasound may also be necessary. 2. The patient has had a considerable amount of weight loss since the prior exam. Correlation with the patient's history would be recommended. ACR BI-RADS Category 0: Incomplete. (Needs additional imaging evaluation). Result letter will be mailed to the patient. Note: At least 10% of breast cancer is not imaged by mammography. Dictated by: Dictated on workstation # [id number]
== END ==
LOC: RAD 09:40
PROVIDERS: ATTEND Nurse Practitioner Family
DX: Z12.31 Encounter for screening mammogram for malignant neoplasm of breast (principal)
CPT/HCPCS: 77067

== ENCOUNTER → 2017-11-02 | Outpatient (CLI) | payer MEDICARE, MEDICAID ==
[2017-11-02 13:32] LABS: CALCIUM 9.2 MG/DL (8.5-10.1); CREATININE SERUM 1.22 MG/DL (0.60-1.30); POTASSIUM 3.8 MMOL/L (3.6-5.0)
== END ==
LOC: LAB 12:53
PROVIDERS: ATTEND Internal Medicine Hematology & Oncology
DX: Z09 Encounter for follow-up examination after completed treatment for conditions other than malignant neoplasm (principal); Z94.84 Stem cells transplant status
CPT/HCPCS: 36415; 80048

== ENCOUNTER → 2017-11-05 | Outpatient (CLI) | payer MEDICARE, MEDICAID ==
--- NOTE | 2017-11-05 19:27 | Diagnostic Imaging Report ---
INDICATION: Left breast density. Patient presents for additional views. Comparison is made with screening mammogram from 10/26/2017. The current study was also evaluated with a Computer Aided Detection (CAD) system. 3D 90 degree lateral view as well as spot compression MLO view and exaggerated CC view was performed. FINDINGS: The left breast is heterogeneously dense. There is mild residual nodularity in the upper portion of the left breast on the spot compression view. No corresponding density on the ML or exaggerated CC view is seen. Marked vascular and parenchymal calcifications are present. IMPRESSION: Mild residual nodularity in the upper left breast on the spot compression view. Further evaluation with ultrasound is recommended. ACR BI-RADS Category 0: Incomplete. (Needs additional imaging evaluation). Result letter will be mailed to the patient. Note: At least 10% of breast cancer is not imaged by mammography. Dictated by: Dictated on workstation # [id number]
--- NOTE | 2017-11-05 20:17 | Diagnostic Imaging Report ---
INDICATION: Left breast density. Study is performed for further evaluation. Correlation is made with screening mammogram from 10/26/2017 and diagnostic mammogram from 11/05/2017. FINDINGS: Sonographic interrogation of the upper portion of the left breast was performed. There is calcification scattered throughout the left breast. No dominant mass is seen. IMPRESSION: Diffuse left breast calcifications, but no discrete mass is seen. Even so, followup left mammogram in 6 months is recommended to show continued stability. ACR BI-RADS Category 3: Probably benign findings. Dictated by: Dictated on workstation # [id number]
== END ==
LOC: RAD 08:11
PROVIDERS: ATTEND Nurse Practitioner Family
DX: R92.1 Mammographic calcification found on diagnostic imaging of breast (principal)
CPT/HCPCS: 76642

== ENCOUNTER → 2018-07-10 | Outpatient (RCR) | payer MEDICARE, MEDICAID ==
[~2018-07-10] VITALS: Ht 167.6 cm; Wt 66.3 kg
[~2018-07-10] MED LIST changes: -AMLO10TA2 PO; +AMLO10TA6 PO; +ANIDULAFUNGIN 100 MG/NS 100 ML IV SCH; +CARB15DR OU; -CARB15DR74 OU; -CITA20TA7 PO; +CITA20TA9 PO; +CLON0.5T13 PO; -CLON0.5T3 PO; +METF-399 PO; -METF1000 PO
[2018-07-10 10:25] VITALS: BP 165/69
[2018-07-10 11:04] VITALS: BP 165/69
[2018-07-10 12:48] VITALS: BP 168/73
[2018-07-10 13:10] VITALS: BP 165/69
== END | disposition home or self-care (01) ==
LOC: SURG RCR 10:05 → 4TH 10:25
PROVIDERS: ATTEND Student in an Organized Health Care Education/Training Program
DX: D89.813 Graft-versus-host disease, unspecified (principal); R94.5 Abnormal results of liver function studies; D61.818 Other pancytopenia

== ENCOUNTER 2018-08-02 10:12 | Outpatient (RCR) | payer MEDICAID, MEDICARE ==
[2018-07-11] MEDS: ANIDULAFUNGIN 100 MG/NS 100 ML IV SCH ×2 (12:21)
[2018-07-11] MEDS: CATHETER FLUSH 10 ML SYR IV PRN (12:21)
[2018-07-11 12:25] VITALS: BP 148/72
[2018-07-12] MEDS: ANIDULAFUNGIN 100 MG/NS 100 ML IV SCH ×2 (12:58)
[2018-07-12] MEDS: CATHETER FLUSH 10 ML SYR IV PRN ×2 (12:58→14:35)
[2018-07-12 14:35] VITALS: BP 141/77
[2018-07-13] MEDS: CATHETER FLUSH 10 ML SYR IV PRN ×2 (14:42→16:12)
[2018-07-13] MEDS: ANIDULAFUNGIN 100 MG/NS 100 ML IV SCH ×2 (14:42)
[2018-07-13 16:15] VITALS: BP 155/74
[2018-07-14] MEDS: CATHETER FLUSH 10 ML SYR IV PRN (09:36)
[2018-07-14] MEDS: ANIDULAFUNGIN 100 MG/NS 100 ML IV SCH ×2 (09:36)
[2018-07-14 11:16] VITALS: BP 167/86
[2018-07-15 12:05] VITALS: BP 132/68
[2018-07-15] MEDS: ANIDULAFUNGIN 100 MG/NS 100 ML IV SCH ×2 (12:22)
[2018-07-15] MEDS: CATHETER FLUSH 10 ML SYR IV PRN (12:22)
[2018-07-16 11:17] VITALS: BP 177/77
[2018-07-16] MEDS: ANIDULAFUNGIN 100 MG/NS 100 ML IV SCH ×2 (11:34)
[2018-07-16] MEDS: CATHETER FLUSH 10 ML SYR IV PRN (11:35)
[2018-07-17] MEDS: ANIDULAFUNGIN 100 MG/NS 100 ML IV SCH ×2 (10:20)
[2018-07-17] MEDS: CATHETER FLUSH 10 ML SYR IV PRN (10:20)
[2018-07-17 10:35] VITALS: BP 151/71
[2018-07-18 10:20] VITALS: BP 145/98
[2018-07-18] MEDS: CATHETER FLUSH 10 ML SYR IV PRN (10:42)
[2018-07-18] MEDS: ANIDULAFUNGIN 100 MG/NS 100 ML IV SCH ×2 (10:42)
[2018-07-19] MEDS: CATHETER FLUSH 10 ML SYR IV PRN ×2 (10:46→12:15)
[2018-07-19] MEDS: ANIDULAFUNGIN 100 MG/NS 100 ML IV SCH ×2 (10:46)
[2018-07-19 12:17] VITALS: BP 161/71
[2018-07-21] MEDS: ANIDULAFUNGIN 100 MG/NS 100 ML IV SCH ×2 (10:45)
[2018-07-21] MEDS: CATHETER FLUSH 10 ML SYR IV PRN (10:46)
[2018-07-21 12:00] VITALS: BP 148/76
[2018-07-22] MEDS: ANIDULAFUNGIN 100 MG/NS 100 ML IV SCH ×2 (10:54)
[2018-07-22] MEDS: CATHETER FLUSH 10 ML SYR IV PRN (10:55)
[2018-07-22 10:57] VITALS: BP 161/81
[2018-07-23] MEDS: ANIDULAFUNGIN 100 MG/NS 100 ML IV SCH ×2 (08:51)
[2018-07-23] MEDS: CATHETER FLUSH 10 ML SYR IV PRN (10:25)
[2018-07-23 10:37] VITALS: BP 147/79
[2018-07-24] MEDS: CATHETER FLUSH 10 ML SYR IV PRN (08:49)
[2018-07-24] MEDS: ANIDULAFUNGIN 100 MG/NS 100 ML IV SCH ×2 (08:51)
[2018-07-24 09:00] VITALS: BP 174/73
[2018-07-24 10:30] VITALS: BP 174/73
[2018-07-25] MEDS: CATHETER FLUSH 10 ML SYR IV PRN (10:29)
[2018-07-25] MEDS: ANIDULAFUNGIN 100 MG/NS 100 ML IV SCH ×2 (10:29)
[2018-07-25 10:35] VITALS: BP 174/72
[2018-07-26 10:28] VITALS: BP 171/74
[2018-07-26] MEDS: CATHETER FLUSH 10 ML SYR IV PRN (10:41)
[2018-07-26] MEDS: ANIDULAFUNGIN 100 MG/NS 100 ML IV SCH ×2 (10:41)
[2018-07-28] MEDS: CATHETER FLUSH 10 ML SYR IV PRN (10:19)
[2018-07-28] MEDS: ANIDULAFUNGIN 100 MG/NS 100 ML IV SCH ×2 (10:19)
[2018-07-28 11:45] VITALS: BP 158/77
[2018-07-29 10:10] VITALS: BP 155/78
[2018-07-29] MEDS: ANIDULAFUNGIN 100 MG/NS 100 ML IV SCH ×2 (10:25)
[2018-07-30 08:40] VITALS: BP 152/96
[2018-07-30] MEDS: CATHETER FLUSH 10 ML SYR IV PRN ×2 (09:35→10:35)
[2018-07-30] MEDS: ANIDULAFUNGIN 100 MG/NS 100 ML IV SCH ×2 (09:35)
[2018-08-01 10:15] VITALS: BP 154/75
[2018-08-01] MEDS: CATHETER FLUSH 10 ML SYR IV PRN (10:39)
[2018-08-01] MEDS: ANIDULAFUNGIN 100 MG/NS 100 ML IV SCH ×2 (10:39)
[~2018-08-02] VITALS: Ht 167.6 cm; Wt 66.3 kg
[~2018-08-02 10:12] MED LIST changes: -ANIDULAFUNGIN 100 MG/NS 100 ML IV SCH
[2018-08-02] MEDS: CATHETER FLUSH 10 ML SYR IV PRN ×2 (10:27→12:10)
[2018-08-02] MEDS: ANIDULAFUNGIN 100 MG/NS 100 ML IV SCH ×2 (10:27)
[2018-08-02 12:00] VITALS: BP 159/84
== END 2018-10-09 | disposition home or self-care (01) ==
LOC: SDC 10:12
PROVIDERS: ATTEND Student in an Organized Health Care Education/Training Program
DX: D89.813 Graft-versus-host disease, unspecified (principal); R94.5 Abnormal results of liver function studies; D61.818 Other pancytopenia
CPT/HCPCS: 96365; 99211

== ENCOUNTER → 2018-11-18 | Outpatient (CLI) | payer MEDICARE ==
[~2018-11-18] MED LIST changes: -AMLO10TA6 PO; +AMLO10TA7 PO
[2018-11-18 15:21] LABS: CALCIUM 9.2 MG/DL (8.5-10.1); CREATININE SERUM 2.15 MG/DL (0.60-1.30); POTASSIUM 4.5 MMOL/L (3.6-5.0)
== END ==
LOC: LAB 14:45
PROVIDERS: ATTEND Internal Medicine
DX: E87.5 Hyperkalemia (principal); I10 Essential (primary) hypertension; C92.01 Acute myeloblastic leukemia, in remission
CPT/HCPCS: 36415; 80048

== ENCOUNTER 2019-05-10 11:40 | Emergency (ER) | payer MEDICARE ==
[~2019-05-10] VITALS: Ht 165.1 cm; Wt 60.8 kg
[2019-05-10] MEDS ORDERED: HYDROcodone/APAP 5 MG/325 MG (LORTAB) TAB PO ONE (12:15)
--- NOTE | 2019-05-10 12:23 | ED Back Pain ---
General Chief Complaint: Trauma-Non Activation Stated Complaint: FALL Nursing Triage Note: PATIENT SPEAKS [place] AND IS USING FAMILY HEAD RIGGER. FAMILY STATES THAT THE PATIENT FELL YESTERDAY. STATES HER LEG "GAVE OUT" CAUSING HER TO FALL LANDING ON HER BOTTOM. SINCE THEN SHE HAS A LOT OF PAIN IN HER LOWER BACK, WORSE WHEN UPRIGHT/WALKING. Nursing Sepsis Screen: No Definite Risk Source of Information: Patient Exam Limitations: No Limitations History of Present Illness Date Seen by Provider: May 10, 2019 Time Seen by Provider: 12:22 Initial Comments Tajik-speaking hemodialysis patient to ER with midline low back pain that does not radiate down her legs. It's worse when she is up walking. Began yesterday when her left leg gave out on her (does this from time to time this is not new). During that fall she landed on her buttocks and has subsequent midline low back pain. She did not hit her head. Location: Lumbar Spine Timing/Duration: 2-3 Days Severity: Moderate Pain/Injury Location: Back Associated Symptoms: lower back pain Allergies and Home Medications Allergies Coded Allergies: No Known Drug Allergies (Unverified , 10/08/14) Home Medications Acyclovir 400 Mg Tablet, 400 MG PO Q12H, (Reported) Amlodipine Besylate 10 Mg Tablet, 10 MG PO DAILY, (Reported) Benzonatate 100 Mg Capsule, 100 MG PO Q8H PRN for COUGH, (Reported) Cholecalciferol (Vitamin D3) 1,000 Unit Tab.chew, 2,000 UNIT PO BID, (Reported) TAKES 2 (1000 UNIT) GUMMIES Citalopram Hydrobromide 20 Mg Tablet, 20 MG PO DAILY, (Reported) Clindamycin HCl 300 Mg Capsule, 300 MG PO Q8H, (Reported) FILLED #90 11-28-17 (ABOUT 41 CAPS LEFT IN BOTTLE) Insulin Aspart 300 Units/3 Ml Solution, SQ SLIDING/SCALE, (Reported) 4 UNITS IN ADDITION TO CORRECTION FACTOR (1 UNIT FOR 40MG/DL ABOVE 140) WITH BREAKFAST AND LUNCH <80 = O UNITS 81-140 = 4 UNITS 141-180 =5 UNITS 181-220 =6 UNITS 221-260 =7 UNITS 261-320 =8 UNITS 321-360 =9 UNITS 361-420 =10 UNITS OVER 420 = 11 UNITS USE 6 UNITS IN ADDITION TO CORRECTION FACTOR (1 UNIT FOR 40MG/DL ABOVE 140) WITH DINNER <80 = NO INSULIN 81-140 = 6 UNITS 141-180= 7 UNITS 181-220= 8 UNITS 221-260= 9 UNITS 261-320= 10 UNITS 321-360= 11 UNITS 361- 420= 12 UNITS OVER 420= 13 UNITS Insulin Detemir 100 Unit/1 Ml Insuln.pen, SC HS, (Reported) USES SAME SLIDING SCALE NOVOLOG AT HS WITH THE LEVEMIR. PAPERWORK FROM STATES 12 UNITS HS HOWEVER PATIENT STATES BLOOD SUGAR BOTTOMS OUT WITH THAT MUCH Leucovorin Calcium 25 Mg Tablet, 25 MG PO DAILY, (Reported) Levothyroxine Sodium 75 Mcg Tablet, 75 MCG PO DAILY, (Reported) FILLED #30 08-18-17 Magnesium Oxide 400 Mg Tablet, 800 MG PO BID, (Reported) TAKES 2 (400MG) TABLETS Montelukast Sodium 10 Mg Tablet, 10 MG PO HS, (Reported) Dov/Polymyx B Sulf/Dexameth 3.5 Gm Oint...g., OS Q48H, (Reported) APPLY 1 CM TO LEFT EYE ONCE DAILY EVERY OTHER DAY Omeprazole 20 Mg Capsule.dr, 20 MG PO DAILY, (Reported) Penicillin V Potassium 250 Mg Tablet, 750 MG PO BID, (Reported) FILLED #180 08-18-17 12 TABS LEFT IN THE BOTTLE (TOOK 2 AT A TIME FOR AWHILE THEN INCREASED IT BACK TO 3 TABS) TAKES 3 (250MG) TABLETS Pyrimethamine 25 Mg Tablet, 25 MG PO DAILY, (Reported) Patient Home Medication List Home Medication List Reviewed: Yes Review of Systems Constitutional: see HPI EENTM: see HPI Respiratory: no symptoms reported Cardiovascular: no symptoms reported Genitourinary: no symptoms reported Musculoskeletal: see HPI, back pain Skin: no symptoms reported Psychiatric/Neurological: No Symptoms Reported Past Naeqrsf-[id number]-[id number] Hx Patient Social History Recent Foreign Travel: No Contact w/Someone Who Travel: No Recent Infectious Disease Expo: No 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) Immunizations Up To Date Tetanus Booster (TDap): Less than 5yrs Date of Influenza Vaccine: Jul 04, 2018 Seasonal Allergies Seasonal Allergies: No Past Medical History Surgeries: Yes (HIP FX, bone marrow transplant) Section Respiratory: No Currently Using CPAP: No Currently Using BIPAP: No Cardiac: Yes High Cholesterol, Hypertension Neurological: No Stroke Reproductive Disorders: No HIV/AIDS: No Genitourinary: Yes UTI-Chronic Gastrointestinal: Yes Gastroesophageal Reflux, Chronic Constipation Musculoskeletal: No Endocrine: Yes Diabetes, Insulin dep HEENT: No Loss of Vision: Denies Hearing Impairment: Denies Cancer: Yes Leukemia Did You Recieve Any Treatments: Yes What Type of Treatment Did You: Chemotherapy Psychosocial: Yes Anxiety Integumentary: No Blood Disorders: No Adverse Reaction/Blood Tranf: No (HAS HAD TRANSFUSIONS WITH NO REACTION) Family Medical History Alcoholism 19 FATHER Diabetes mellitus daughter Headache disorder 19 MOTHER Thyroid disease daughter Physical Exam Vital Signs Vital Signs - First Documented 05/10/19 11:57 Temp 97.4 Pulse 67 Resp 20 B/P (MAP) 110/65 (80) Pulse Ox 99 Capillary Refill : Less Than 3 Seconds Height, Weight, BMI Height: 5'5.00" Weight: 134lbs. 0oz. 60.741304hp; 23.6 BMI Method:Stated General Appearance: No Apparent Distress, WD/WN HEENT: PERRL/EOMI, TMs Normal Neck: Full Range of Motion, Normal Inspection Respiratory: Lungs Clear, Normal Breath Sounds, No Accessory Muscle Use, No Respiratory Distress Gastrointestinal: Non Tender, Soft Neurologic/Psychiatric: Alert, Oriented x3 Skin: Normal Color, Warm/Dry Procedures/Interventions Date of ETT Placement: Apr 16, 2017 Time of ETT Placement: 1516 Suture Size: 5-0 Progress/Results/Core Measures Results/Orders My Orders Orders - SARAH MILTON APRN Ct Lumbar Spine Wo (05/10/19 12:11) Hydrocodone/Apap 5/325 Tablet (Lortab 5 (05/10/19 12:15) Pelvis (05/10/19 13:16) Medications Given in ED Current Medications Medications Dose Ordered Sig/Kae Route Start Time Stop Time Status Last Admin Dose Admin Acetaminophen/ Hydrocodone Bitart 1 tab ONCE ONCE PO 05/10/19 12:15 05/10/19 12:16 DC 05/10/19 12:15 1 TAB Vital Signs/I&O 05/10/19 11:57 Temp 97.4 Pulse 67 Resp 20 B/P (MAP) 110/65 (80) Pulse Ox 99 Blood Pressure Mean: 80 Departure Impression Primary Impression: Sacral fracture, closed Qualified Codes: S32.10XA - Unspecified fracture of sacrum, initial encounter for closed fracture Disposition: 01 HOME, SELF-CARE Condition: Stable Departure-Patient Inst. Decision time for Depature: 13:32 Referrals: NO,LOCAL PHYSICIAN (PCP/Family) Primary Care Physician Patient Instructions: Preventing Falls Add. Discharge Instructions: Use the walker when walking 2. Follow-up with one of the orthopedic surgeons provided or one of your cho osing. Pain medication as directed. Beware this may be constipating All discharge instructions reviewed with patient and/or family. Voiced understanding. Scripts Hydrocodone/Acetaminophen ([place] 5-325 Tablet) 1 Each Tablet 1 TAB PO BID for Pain MDD 10 TABS for 7 Days, #14 TAB Prov: SARAH MILTON APRN 05/10/19 SARAH MILTON APRN May 10, 2019 12:23
--- NOTE | 2019-05-10 12:56 | Diagnostic Imaging Report ---
PROCEDURE: CT lumbar spine without contrast. TECHNIQUE: Multiple contiguous axial images were obtained through the lumbar spine without the use of intravenous contrast. Sagittal and coronal reformations were then performed. Auto Exposure Controls were utilized during the CT exam to meet ALARA standards for radiation dose reduction. INDICATION: Fall and low back pain. Curvature and alignment of the lumbar spine is normal. Prevertebral body heights are maintained. No acute compression fracture is identified. There is a generalized degenerative disc disease with variable disc space narrowing and marginal spurring. There is a fracture involving the right sacral ala. No other fractures are seen. Paraspinous tissues are unremarkable. Aorta is heavily calcified but not aneurysmal. IMPRESSION: 1. Right sacral alar fracture. 2. Lumbar spondylosis. No acute vertebral body fracture is identified. Dictated by: Dictated on workstation # [id number]
[2019-05-10] MEDS ORDERED: HYDR-4226 PO (13:34)
--- NOTE | 2019-05-10 13:37 | Diagnostic Imaging Report ---
INDICATION: Fall with pelvic pain AP pelvis obtained at 1:27 hours p.m. and compared to 04/16/2017. There is a healed old fracture of the left proximal femur in the intertrochanteric region, with hardware in place. There is no acute fracture or acute bony abnormality. IMPRESSION: Old fracture deformity of the left proximal femur with hardware in place in good alignment. No acute fracture seen. Dictated by: Dictated on workstation # [id number]
[2019-05-10 13:53] VITALS: BP 110/65
== END 2019-05-10 13:53 | disposition home or self-care (01) ==
LOC: EDUNIT# 11:40 → ER 11:42
DX: S32.10XA Unspecified fracture of sacrum, initial encounter for closed fracture (principal); I10 Essential (primary) hypertension; E11.9 Type 2 diabetes mellitus without complications; E78.00 Pure hypercholesterolemia, unspecified; F41.9 Anxiety disorder, unspecified; K21.9 Gastro-esophageal reflux disease without esophagitis; Z85.6 Personal history of leukemia; Z86.73 Personal history of transient ischemic attack (TIA), and cerebral infarction without residual deficits; Z79.4 Long term (current) use of insulin; Z99.2 Dependence on renal dialysis; Z94.81 Bone marrow transplant status; W18.39XA Other fall on same level, initial encounter
CPT/HCPCS: 72131; 72170

== ENCOUNTER 2019-06-05 10:55 | Emergency (ER) | payer MEDICARE ==
[~2019-06-05] VITALS: Ht 152.4 cm; Wt 63.5 kg
[~2019-06-05 10:55] MED LIST changes: +HYDR-4226 PO; -OMEP20CA12 PO; +OMEP20CA13 PO
[2019-06-05] MEDS ORDERED: NS IV 500 ML 500 ML IV ONE (11:09)
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
[2019-06-05 11:39] LABS: BASOPHILS % (AUTO) 0 % (0-10); EOSINOPHILS % (AUTO) 0 % (0-10); HEMATOCRIT 34 % (35-52); HEMOGLOBIN 11.5 G/DL (11.5-16.0); LYMPHOCYTES # (AUTO) 1.6 X 10^3 (1.0-4.0); LYMPHOCYTES % (AUTO) 24 % (12-44); MEAN CORPUSCULAR HEMOGLOBIN 37 PG (25-34); MEAN CORPUSCULAR HGB CONC 34 G/DL (32-36); MEAN CORPUSCULAR VOLUME 108 FL (80-99); MEAN PLATELET VOLUME 10.9 FL (7.4-10.4); MONOCYTES % (AUTO) 15 % (0-12); NEUTROPHILS # (AUTO) 4.3 X 10^3 (1.8-7.8); NEUTROPHILS % (AUTO) 61 % (42-75); PLATELET COUNT 122 10^3/uL (130-400); RED CELL DISTRIBUTION WIDTH 15.2 % (10.0-14.5)
[2019-06-05 11:54] LABS: INR 1.1 (0.8-1.4); PROTHROMBIN TIME PATIENT 14.7 SEC (12.2-14.7)
[2019-06-05 12:05] LABS: ALBUMIN 3.1 GM/DL (3.2-4.5); BILIRUBIN,TOTAL 1.4 MG/DL (0.1-1.0); CREATININE SERUM 1.72 MG/DL (0.60-1.30); TOTAL PROTEIN 5.3 GM/DL (6.4-8.2)
[2019-06-05 12:14] LABS: BILIRUBIN,URINE NEGATIVE (NEGATIVE); COLOR,URINE YELLOW; GLUCOSE, URINE (UA) NEGATIVE (NEGATIVE); KETONES,URINE NEGATIVE (NEGATIVE); LEUKOCYTE ESTERASE ,URINE 3+ (NEGATIVE); NITRITE,URINE NEGATIVE (NEGATIVE); PH,URINE 6 (5-9); PROTEIN,URINE 4+ (NEGATIVE); UROBILINOGEN,URINE 1 MG/DL (NORMAL)
[2019-06-05 12:26] LABS: BACTERIA,URINE LARGE /HPF; CLARITY,URINE CLOUDY; RBC,URINE TNTC /HPF; WBC,URINE TNTC /HPF
[2019-06-05] MEDS ORDERED: CIPR-226 PO (13:15)
[2019-06-05 13:56] VITALS: BP 115/65
--- NOTE | 2019-06-05 13:58 | Diagnostic Imaging Report ---
INDICATION: Diminished radial pulses TECHNIQUE: Multiple realtime grayscale images were obtained over the left upper extremity in various projections. Duplex Doppler and color Doppler images were also obtained. FINDINGS: The proximal subclavian artery demonstrates monophasic flow in 200 cm/s. Distal subclavian arteries also monophasic at 55 cm/second. Axial arteries monophasic flow at 280 cm/second. Brachial radial arteries and ulnar arteries all demonstrate biphasic flow. There is a left upper extremity hemodialysis graft. The arterial anastomosis is not well visualized. Appears to be getting axillary region in the antecubital space. It remains widely patent. IMPRESSION: Patent left upper extremity hemodialysis graft. Monophasic flow in the left subclavian and axillary artery suggesting proximal stenosis. Recommend clinical correlation and if warranted followup with either CTA or pulmonary angiography. Dictated by: Dictated on workstation # [id number]
== END 2019-06-05 13:56 | disposition home or self-care (01) ==
LOC: ER 10:55 → EDUNIT# 10:55 → ER 13:56
DX: S50.12XA Contusion of left forearm, initial encounter (principal); N39.0 Urinary tract infection, site not specified; E11.9 Type 2 diabetes mellitus without complications; I10 Essential (primary) hypertension; E78.00 Pure hypercholesterolemia, unspecified; K21.9 Gastro-esophageal reflux disease without esophagitis; F41.9 Anxiety disorder, unspecified; Z85.6 Personal history of leukemia; Z87.440 Personal history of urinary (tract) infections; Z86.73 Personal history of transient ischemic attack (TIA), and cerebral infarction without residual deficits; Z99.2 Dependence on renal dialysis; Z79.4 Long term (current) use of insulin; Z94.81 Bone marrow transplant status; Z87.19 Personal history of other diseases of the digestive system; X58.XXXA Exposure to other specified factors, initial encounter
CPT/HCPCS: 36415; 80053; 81000; 82150; 83690; 85025; 85610; 85730; 87077; 87088; 87184; 87186; 93931

== ENCOUNTER 2019-10-13 11:11 | Emergency (ER) | payer MEDICARE ==
[~2019-10-13] VITALS: Ht 160 cm; Wt 65.3 kg
[~2019-10-13 11:11] MED LIST changes: +CIPR-226 PO
--- NOTE | 2019-10-13 11:27 | ED General ---
General Stated Complaint: CONFUSION Source of Information: Patient, Family Exam Limitations: No Limitations History of Present Illness Date Seen by Provider: Oct 13, 2019 Time Seen by Provider: 11:24 Initial Comments To ER by private vehicle from dialysis center where she was receiving dialysis treatment and was noted to become confused partway through her dialysis treatment. Patient's daughter is present and states that the father had mentioned some things to the patient which she doesn't recall, daughter herself was not present during this episode of confusion so this is all third-republican information. At this time the daughter states that the patient seems back to normal. However during the car ride here while with the daughter she did try to stand up which she is not able to do by herself and she knows that, she also tried to get out of the car. History of leukemia, on daily maintenance medication following with a Hospital in [place]. She's been cancer free for 2 years according to daughter. Also had a recent paracentesis done on 10/10/19. Timing/Duration: 1/2 Hour Severity: Moderate Associated Systoms: Other Allergies and Home Medications Allergies Coded Allergies: No Known Drug Allergies (Unverified , 10/08/14) Home Medications Acyclovir 400 Mg Tablet, 400 MG PO Q12H, (Reported) Amlodipine Besylate 10 Mg Tablet, 10 MG PO DAILY, (Reported) Benzonatate 100 Mg Capsule, 100 MG PO Q8H PRN for COUGH, (Reported) Cholecalciferol (Vitamin D3) 1,000 Unit Tab.chew, 2,000 UNIT PO BID, (Reported) TAKES 2 (1000 UNIT) GUMMIES Ciprofloxacin HCl 250 Mg Tablet, 250 MG PO BID Prescribed by: MAX BROWN on 06/05/19 1315 Citalopram Hydrobromide 20 Mg Tablet, 20 MG PO DAILY, (Reported) Clindamycin HCl 300 Mg Capsule, 300 MG PO Q8H, (Reported) FILLED #90 11-28-17 (ABOUT 41 CAPS LEFT IN BOTTLE) Hydrocodone/Acetaminophen 1 Each Tablet, 1 TAB PO BID Prescribed by: SARAH MILTON on 05/10/19 1334 Insulin Aspart 300 Units/3 Ml Solution, SQ SLIDING/SCALE, (Reported) 4 UNITS IN ADDITION TO CORRECTION FACTOR (1 UNIT FOR 40MG/DL ABOVE 140) WITH BREAKFAST AND LUNCH <80 = O UNITS 81-140 = 4 UNITS 141-180 =5 UNITS 181-220 =6 UNITS 221-260 =7 UNITS 261-320 =8 UNITS 321-360 =9 UNITS 361-420 =10 UNITS OVER 420 = 11 UNITS USE 6 UNITS IN ADDITION TO CORRECTION FACTOR (1 UNIT FOR 40MG/DL ABOVE 140) WITH DINNER <80 = NO INSULIN 81-140 = 6 UNITS 141-180= 7 UNITS 181-220= 8 UNITS 221-260= 9 UNITS 261-320= 10 UNITS 321-360= 11 UNITS 361- 420= 12 UNITS OVER 420= 13 UNITS Insulin Detemir 100 Unit/1 Ml Insuln.pen, SC HS, (Reported) USES SAME SLIDING SCALE NOVOLOG AT HS WITH THE LEVEMIR. PAPERWORK FROM STATES 12 UNITS HS HOWEVER PATIENT STATES BLOOD SUGAR BOTTOMS OUT WITH THAT MUCH Leucovorin Calcium 25 Mg Tablet, 25 MG PO DAILY, (Reported) Levothyroxine Sodium 75 Mcg Tablet, 75 MCG PO DAILY, (Reported) FILLED #30 08-18-17 Magnesium Oxide 400 Mg Tablet, 800 MG PO BID, (Reported) TAKES 2 (400MG) TABLETS Montelukast Sodium 10 Mg Tablet, 10 MG PO HS, (Reported) Dov/Polymyx B Sulf/Dexameth 3.5 Gm Oint...g., OS Q48H, (Reported) APPLY 1 CM TO LEFT EYE ONCE DAILY EVERY OTHER DAY Omeprazole 20 Mg Capsule.dr, 20 MG PO DAILY, (Reported) Penicillin V Potassium 250 Mg Tablet, 750 MG PO BID, (Reported) FILLED #180 08-18-17 12 TABS LEFT IN THE BOTTLE (TOOK 2 AT A TIME FOR AWHILE THEN INCREASED IT BACK TO 3 TABS) TAKES 3 (250MG) TABLETS Pyrimethamine 25 Mg Tablet, 25 MG PO DAILY, (Reported) Patient Home Medication List Home Medication List Reviewed: Yes Review of Systems Review of Systems Constitutional: see HPI; No chills, No dizziness, No fever EENTM: see HPI Respiratory: no symptoms reported Cardiovascular: no symptoms reported Gastrointestinal: No abdominal pain, No nausea, No vomiting Genitourinary: see HPI, frequency (did report urinary frequency yesterday) Musculoskeletal: no symptoms reported Skin: no symptoms reported Psychiatric/Neurological: No Symptoms Reported; Denies Headache, Denies Numbness, Denies Paresthesia Hematologic/Lymphatic: No Symptoms Reported Immunological/Allergic: no symptoms reported Past Llepuoj-Fvzaze-Uxhzpl Hx Patient Social History 2nd Hand Smoke Exposure: No Recent Foreign Travel: No Contact w/Someone Who Travel: No Recent Hopitalizations: No Immunizations Up To Date Tetanus Booster (TDap): Less than 5yrs Date of Influenza Vaccine: Jul 04, 2018 Seasonal Allergies Seasonal Allergies: No Past Medical History Surgeries: Yes (HIP FX, bone marrow transplant) Section Respiratory: No Currently Using CPAP: No Currently Using BIPAP: No Cardiac: Yes High Cholesterol, Hypertension Neurological: No Stroke Reproductive Disorders: No HIV/AIDS: No Genitourinary: Yes UTI-Chronic Gastrointestinal: Yes (OCC HEARTBURN, OCC CONSTIPATION) Gastroesophageal Reflux, Chronic Constipation Musculoskeletal: No Endocrine: Yes Diabetes, Insulin dep HEENT: No Loss of Vision: Denies Hearing Impairment: Denies Cancer: Yes Leukemia Did You Recieve Any Treatments: Yes What Type of Treatment Did You: Chemotherapy Psychosocial: Yes Anxiety Integumentary: No Blood Disorders: No Adverse Reaction/Blood Tranf: No (HAS HAD TRANSFUSIONS WITH NO REACTION) Family Medical History Alcoholism 19 FATHER Diabetes mellitus daughter Headache disorder 19 MOTHER Thyroid disease daughter Physical Exam Vital Signs Vital Signs - First Documented 10/13/19 11:25 Temp 36.2 Pulse 87 Resp 16 B/P (MAP) 110/67 (81) Pulse Ox 98 O2 Delivery Room Air Capillary Refill : Height, Weight, BMI Height: 5'0" Weight: 140lbs. 0oz. 63.208579nf; 23.6 BMI Method:Stated General Appearance: No Apparent Distress, WD/WN, Thin Eyes: Bilateral Eye Normal Inspection, Bilateral Eye PERRL, Bilateral Eye EOMI HEENT: PERRL/EOMI, TMs Normal Neck: Full Range of Motion, Normal Inspection Respiratory: Normal Breath Sounds, No Accessory Muscle Use, No Respiratory Distress Cardiovascular: Regular Rate, Rhythm, Normal Peripheral Pulses Gastrointestinal: Non Tender, Soft, Other (abdomen is round, somewhat distended but not tight, completely nontender to palpation) Extremity: Normal Capillary Refill, Normal Inspection, Other (Dialysis fistula left upper arm) Neurologic/Psychiatric: Alert, Oriented x3 Skin: Normal Color, Warm/Dry Procedures/Interventions Date of ETT Placement: Apr 16, 2017 Time of ETT Placement: 1516 Suture Size: 5-0 Progress/Results/Core Measures Suspected Sepsis SIRS Temperature: Pulse: Respiratory Rate: Laboratory Tests 10/13/19 11:45: White Blood Count 6.5 Blood Pressure / Mean: Laboratory Tests 10/13/19 11:45: Creatinine 2.66H, INR Comment 1.1, Platelet Count 84L, Total Bilirubin 0.7 Results/Orders Lab Results Laboratory Tests Test 10/13/19 11:45 10/13/19 12:50 Range/Units White Blood Count 6.5 4.3-11.0 10^3/uL Red Blood Count 3.85 L 4.35-5.85 10^6/uL Hemoglobin 14.0 11.5-16.0 G/DL Hematocrit 41 35-52 % Mean Corpuscular Volume 106 H 80-99 FL Mean Corpuscular Hemoglobin 36 H 25-34 PG Mean Corpuscular Hemoglobin Concent 34 32-36 G/DL Red Cell Distribution Width 14.6 H 10.0-14.5 % Platelet Count 84 L 130-400 10^3/uL Mean Platelet Volume 9.6 7.4-10.4 FL Neutrophils (%) (Auto) 42 42-75 % Lymphocytes (%) (Auto) 36 12-44 % Monocytes (%) (Auto) 19 H 0-12 % Eosinophils (%) (Auto) 3 0-10 % Basophils (%) (Auto) 1 0-10 % Neutrophils # (Auto) 2.7 1.8-7.8 X 10^3 Lymphocytes # (Auto) 2.3 1.0-4.0 X 10^3 Monocytes # (Auto) 1.2 H 0.0-1.0 X 10^3 Eosinophils # (Auto) 0.2 0.0-0.3 10^3/uL Basophils # (Auto) 0.0 0.0-0.1 10^3/uL Neutrophils % (Manual) 47 % Lymphocytes % (Manual) 34 % Monocytes % (Manual) 13 % Eosinophils % (Manual) 3 % Basophils % (Manual) 2 % Band Neutrophils 1 % Anisocytosis SLIGHT Macrocytosis SLIGHT Prothrombin Time 14.3 12.2-14.7 SEC INR Comment 1.1 0.8-1.4 Sodium Level 137 135-145 MMOL/L Potassium Level 3.4 L 3.6-5.0 MMOL/L Chloride Level 97 L 98-107 MMOL/L Carbon Dioxide Level 26 21-32 MMOL/L Anion Gap 14 5-14 MMOL/L Blood Urea Nitrogen 24 H 7-18 MG/DL Creatinine 2.66 H 0.60-1.30 MG/DL Estimat Glomerular Filtration Rate 18 BUN/Creatinine Ratio 9 Glucose Level 137 H 70-105 MG/DL Calcium Level 8.3 L 8.5-10.1 MG/DL Corrected Calcium 9.1 8.5-10.1 MG/DL Total Bilirubin 0.7 0.1-1.0 MG/DL Aspartate Amino Transf (AST/SGOT) 79 H 5-34 U/L Alanine Aminotransferase (ALT/SGPT) 42 0-55 U/L Alkaline Phosphatase 180 H 40-136 U/L Total Protein 7.3 6.4-8.2 GM/DL Albumin 3.0 L 3.2-4.5 GM/DL Urine Color YELLOW Urine Clarity CLOUDY Urine pH 8.0 5-9 Urine Specific [place] 1.020 1.016-1.022 Urine Protein 2+ H NEGATIVE Urine Glucose (UA) NEGATIVE NEGATIVE Urine Ketones NEGATIVE NEGATIVE Urine Nitrite NEGATIVE NEGATIVE Urine Bilirubin NEGATIVE NEGATIVE Urine Urobilinogen 0.2 < = 1.0 MG/DL Urine Leukocyte Esterase 3+ H NEGATIVE Urine RBC (Auto) 1+ H NEGATIVE Urine RBC 2-5 H /HPF Urine WBC TNTC H /HPF Urine Squamous Epithelial Cells 2-5 /HPF Urine Crystals NONE /LPF Urine Bacteria LARGE H /HPF Urine Casts NONE /LPF Urine Mucus NEGATIVE /LPF Urine Culture Indicated YES Urine Opiates Screen NEGATIVE NEGATIVE Urine Oxycodone Screen NEGATIVE NEGATIVE Urine Methadone Screen NEGATIVE NEGATIVE Urine Propoxyphene Screen NEGATIVE NEGATIVE Urine Barbiturates Screen NEGATIVE NEGATIVE Ur Tricyclic Antidepressants Screen NEGATIVE NEGATIVE Urine Phencyclidine Screen NEGATIVE NEGATIVE Urine Amphetamines Screen NEGATIVE NEGATIVE Urine Methamphetamines Screen NEGATIVE NEGATIVE Urine Benzodiazepines Screen NEGATIVE NEGATIVE Urine Cocaine Screen NEGATIVE NEGATIVE Urine Cannabinoids Screen NEGATIVE NEGATIVE My Orders Orders - SARAH MILTON APRN Cbc With Automated Diff (10/13/19 11:18) Comprehensive Metabolic Panel (10/13/19 11:18) Ct Head Wo (10/13/19 11:18) Chest 1 View, Ap/Pa Only (10/13/19 11:18) Ekg Tracing (10/13/19 11:18) Protime With Inr (10/13/19 11:18) Ua Culture If Indicated (10/13/19 11:18) Drug Screen Stat (Urine) (10/13/19 11:18) Ed Iv/Invasive Line Start (10/13/19 11:18) Manual Differential (10/13/19 11:45) Urine Culture (10/13/19 12:50) Ceftriaxone For Iv Use (Rocephin For I (10/13/19 13:30) Mri Brain W/Wo Contrast (10/13/19 14:59) Gadobutrol Inj (Radiology) (Gadavist Inj (10/13/19 15:45) Medications Given in ED Current Medications Medications Dose Ordered Sig/Kae Route Start Time Stop Time Status Last Admin Dose Admin Ceftriaxone Sodium 1000 mg/ Sterile Water 10 ml @ 200 mls/hr ONCE ONCE IV 10/13/19 13:30 10/13/19 13:32 DC 10/13/19 13:58 200 MLS/HR Gadobutrol 7.5 mmol ONCE ONCE IV 10/13/19 15:45 10/13/19 15:46 DC 10/13/19 15:42 6 MMOL Vital Signs/I&O 10/13/19 11:25 Temp 36.2 Pulse 87 Resp 16 B/P (MAP) 110/67 (81) Pulse Ox 98 O2 Delivery Room Air Capillary Refill : Diagnostic Imaging Diagonstic Imaging: CT Comments NAME: VERNON MARYCORRY MED REC#: [id number] PT STATUS: REG ER : 1955 PHYSICIAN: SARAH MILTON APRN ADMIT DATE: 10/13/19/ER Signed Date of Exam:10/13/19 CHEST 1 VIEW, AP/PA ONLY Indication: Confusion Portable chest 11:31 AM Heart size and pulmonary vascularity are normal. Lungs are clear. There are no effusions or pneumothoraces. IMPRESSION: Negative chest Dictated by: Dictated on workstation # [id number] Dict: 10/13/19 1136 Trans: 10/13/19 1136 [id number] Interpreted by: JEY DIAZ MD Electronically signed by: JEY DIAZ MD 10/13/19 1136 NAME: VERNONCORRY LARA MED REC#: [id number] PT STATUS: REG ER : 1955 PHYSICIAN: SARAH MILTON APRN ADMIT DATE: 10/13/19/ER Draft Date of Exam:10/13/19 CT HEAD WO PROCEDURE: CT head without contrast. TECHNIQUE: Multiple contiguous axial images were obtained through the brain without the use of intravenous contrast. Auto Exposure Controls were utilized during the CT exam to meet ALARA standards for radiation dose reduction. INDICATION: Confusion. COMPARISON: Comparison is made with prior head CT from 07/30/2017. FINDINGS: There is an area of hyperdensity in the medial and inferior aspect of the right cerebellum measuring 7 mm x 5 mm. There was some hyperdensity at this location on prior CT from 2017, however this appears to be slightly more prominent. Minimal hemorrhage at this location is suspected. Ventricular size is normal. Sulcal pattern is unremarkable. There is no midline shift. Cisterns are patent. Visualized paranasal sinuses are clear. IMPRESSION: Subcentimeter focus of hyperdensity along the medial and inferior aspect of the right cerebellum, suspicious for a minimal acute blood. Calcification would be an additional consideration. There are no other areas of hemorrhage. There is no mass effect or midline shift. Continued follow-up is recommended to confirm stability. Dictated on workstation # [id number] Dict: 10/13/19 1217 Trans: 10/13/19 1223 [id number] Interpreted by: KEVIN BERG MD Electronically signed by: Departure Communication (Admissions) Family Conversation Spoke with neurosurgeon Dr. Ribeiro from [facility] who has reviewed the CT images that we have clouded to them. Feels that this is a stable lesion unchanged and not passenger service representative of bleeding. MRI confirms that. Patient remains at baseline alert and oriented will be discharged home. NAME: CORRY MENDOZA [facility] REC#: [id number] PT STATUS: REG ER : 1955 PHYSICIAN: SARAH MILTON APRN ADMIT DATE: 10/13/19/ER Signed Date of Exam:10/13/19 CHEST 1 VIEW, AP/PA ONLY Indication: Confusion Portable chest 11:31 AM Heart size and pulmonary vascularity are normal. Lungs are clear. There are no effusions or pneumothoraces. IMPRESSION: Negative chest Dictated by: Dictated on workstation # [id number] Dict: 10/13/19 1136 Trans: 10/13/19 1136 [id number] Interpreted by: JEY DIAZ MD Electronically signed by: JEY DIAZ MD 10/13/19 1136 Impression Primary Impression: Urinary tract infection Qualified Codes: N30.00 - Acute cystitis without hematuria Additional Impression: Abnormal brain CT Disposition: HOME, SELF-CARE Condition: Improved Departure-Patient Inst. Decision time for Depature: 16:37 Referrals: NO,LOCAL PHYSICIAN (PCP/Family) Primary Care Physician Patient Instructions: Delirium (Confusion) (DC) SARAH MILTON [place] Oct 13, 2019 11:27
--- NOTE | 2019-10-13 11:37 | Diagnostic Imaging Report ---
Indication: Confusion Portable chest 11:31 AM Heart size and pulmonary vascularity are normal. Lungs are clear. There are no effusions or pneumothoraces. IMPRESSION: Negative chest Dictated by: Dictated on workstation # [id number]
[2019-10-13 11:59] LABS: BASOPHILS % (AUTO) 1 % (0-10); EOSINOPHILS # (AUTO) 0.2 10^3/uL (0.0-0.3); EOSINOPHILS % (AUTO) 3 % (0-10); HEMATOCRIT 41 % (35-52); LYMPHOCYTES # (AUTO) 2.3 X 10^3 (1.0-4.0); LYMPHOCYTES % (AUTO) 36 % (12-44); MEAN CORPUSCULAR HEMOGLOBIN 36 PG (25-34); MEAN CORPUSCULAR HGB CONC 34 G/DL (32-36); MEAN CORPUSCULAR VOLUME 106 FL (80-99); MEAN PLATELET VOLUME 9.6 FL (7.4-10.4); MONOCYTES # (AUTO) 1.2 X 10^3 (0.0-1.0); MONOCYTES % (AUTO) 19 % (0-12); NEUTROPHILS # (AUTO) 2.7 X 10^3 (1.8-7.8); NEUTROPHILS % (AUTO) 42 % (42-75); PLATELET COUNT 84 10^3/uL (130-400); RED CELL DISTRIBUTION WIDTH 14.6 % (10.0-14.5); WHITE BLOOD COUNT 6.5 10^3/uL (4.3-11.0)
[2019-10-13 12:11] LABS: INR 1.1 (0.8-1.4); PROTHROMBIN TIME PATIENT 14.3 SEC (12.2-14.7)
[2019-10-13 12:19] LABS: BILIRUBIN,TOTAL 0.7 MG/DL (0.1-1.0); CALCIUM 8.3 MG/DL (8.5-10.1); CREATININE SERUM 2.66 MG/DL (0.60-1.30); POTASSIUM 3.4 MMOL/L (3.6-5.0); TOTAL PROTEIN 7.3 GM/DL (6.4-8.2)
[2019-10-13 12:24] LABS: ANISOCYTOSIS SLIGHT; BAND NEUTROPHILS 1 %; BASOPHILS % (MANUAL) 2 %; EOSINOPHILS % (MANUAL) 3 %; LYMPHOCYTES % (MANUAL) 34 %; MONOCYTES % (MANUAL) 13 %; NEUTROPHILS % (MANUAL) 47 %
--- NOTE | 2019-10-13 12:24 | Diagnostic Imaging Report ---
PROCEDURE: CT head without contrast. TECHNIQUE: Multiple contiguous axial images were obtained through the brain without the use of intravenous contrast. Auto Exposure Controls were utilized during the CT exam to meet ALARA standards for radiation dose reduction. INDICATION: Confusion. COMPARISON: Comparison is made with prior head CT from 07/30/2017. FINDINGS: There is an area of hyperdensity in the medial and inferior aspect of the right cerebellum measuring 7 mm x 5 mm. There was some hyperdensity at this location on prior CT from 2017, however this appears to be slightly more prominent. Minimal hemorrhage at this location is suspected. Ventricular size is normal. Sulcal pattern is unremarkable. There is no midline shift. Cisterns are patent. Visualized paranasal sinuses are clear. IMPRESSION: Subcentimeter focus of hyperdensity along the medial and inferior aspect of the right cerebellum, suspicious for a minimal acute blood. Calcification would be an additional consideration. There are no other areas of hemorrhage. There is no mass effect or midline shift. Continued follow-up is recommended to confirm stability. Dictated by: Dictated on workstation # [id number]
[2019-10-13 13:01] LABS: BILIRUBIN,URINE NEGATIVE (NEGATIVE); CLARITY,URINE CLOUDY; COLOR,URINE YELLOW; GLUCOSE, URINE (UA) NEGATIVE (NEGATIVE); KETONES,URINE NEGATIVE (NEGATIVE); LEUKOCYTE ESTERASE ,URINE 3+ (NEGATIVE); NITRITE,URINE NEGATIVE (NEGATIVE); PROTEIN,URINE 2+ (NEGATIVE)
[2019-10-13 13:13] LABS: BACTERIA,URINE LARGE /HPF; WBC,URINE TNTC /HPF
[2019-10-13 13:17] LABS: AMPHETAMINE SCREEN, URINE NEGATIVE (NEGATIVE); BARBITURATE SCREEN URINE NEGATIVE (NEGATIVE); BENZODIAZEPINES SCREEN URINE NEGATIVE (NEGATIVE); CANNABINOID SCREEN, URINE NEGATIVE (NEGATIVE); COCAINE SCREEN URINE NEGATIVE (NEGATIVE); METHADONE STAT NEGATIVE (NEGATIVE); METHAMPHETAMINE SCREEN URINE S NEGATIVE (NEGATIVE); OPIATE SCREEN URINE NEGATIVE (NEGATIVE); OXYCODONE STAT NEGATIVE (NEGATIVE); PROPOXYPHENE STAT NEGATIVE (NEGATIVE); TRICYCLIC ANTIDEPRESSANTS SCRE NEGATIVE (NEGATIVE)
[2019-10-13] MEDS ORDERED: cefTRIAXone FOR IV USE 1,000 MG in WATER (STERILE) FOR INJECTION 10 ML IV ONE (13:30)
[2019-10-13] MEDS ORDERED: GADOBUTROL 7.5 MMOL/7.5 ML (GADAVIST) VIAL IV ONE (15:45)
--- NOTE | 2019-10-13 16:00 | NUR ---
Pt taken fresh blankets. Pt denies needs at this time.
--- NOTE | 2019-10-13 16:28 | Diagnostic Imaging Report ---
INDICATION: Altered mental status and abnormal brain CT. MRI brain obtained pre- and post-IV contrast. Comparison made to the brain CT of earlier today. Diffusion weighted images demonstrate no areas of diffusion signal abnormality to suggest acute ischemic change. There is no subdural or epidural fluid collection. The ventricles are normal in size. There are scattered areas of signal change in the deep and subcortical white matter in both hemispheres compatible with chronic ischemic change. The abnormal finding in the right cerebellum on the CT study is also visualized on MRI. This area shows dark signal on T2-weighted images with a slight amount of increased surrounding edema. It does show faint enhancement postcontrast. 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 This area overall measured about 0.9 x 0.7 x 0.7 cm. There are no other abnormal lesions. There is partial opacification of the mastoid air cells and mild mucosal thickening in the left maxillary sinus. 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 The fact that it appears slightly more dense on the CT on the previous study of 2017 shows there may be additional blood products within the lesion. There is a small amount of surrounding vasogenic edema. Would consider a follow-up study in 6 months to assure stability, unless clinical symptoms warrant earlier follow-up. There are underlying chronic changes in the deep white matter. There is no acute ischemic change. There is no ventricular dilatation. Dictated by: Dictated on workstation # [id number]
[2019-10-13 16:48] VITALS: BP 129/73
--- NOTE | 2019-10-16 08:58 | NUR ---
micro called report given to dr laguna.
== END 2019-10-13 16:56 | disposition home or self-care (01) ==
LOC: EDUNIT# 11:11 → ER 11:13
DX: N39.0 Urinary tract infection, site not specified (principal); R94.02 Abnormal brain scan; I10 Essential (primary) hypertension; E78.00 Pure hypercholesterolemia, unspecified; K21.9 Gastro-esophageal reflux disease without esophagitis; E11.9 Type 2 diabetes mellitus without complications; F41.9 Anxiety disorder, unspecified; Z87.01 Personal history of pneumonia (recurrent); Z86.73 Personal history of transient ischemic attack (TIA), and cerebral infarction without residual deficits; Z85.6 Personal history of leukemia; Z79.4 Long term (current) use of insulin; Z94.81 Bone marrow transplant status; Z99.2 Dependence on renal dialysis
CPT/HCPCS: 36415; 70450; 70553; 71045; 80053; 80306; 81000; 85007; 85027; 85610; 87077; 87088; 87186; 93005; 96365

== ENCOUNTER 2020-01-25 10:26 | Outpatient (CLI) | payer MEDICARE ==
[~2020-01-25 10:26] MED LIST changes: -CLON0.5T13 PO; +CLON0.5T4 PO; -MONT10TA24 PO; +MONT10TA26 PO; -OMEP20CA13 PO; +OMEP20CA18 PO; +OMEP40CA27 PO; -OMEP40CA36 PO
[2020-01-25 10:30] VITALS: BP 110/55
--- NOTE | 2020-01-25 11:37 | Diagnostic Imaging Report ---
INDICATION: Ascites. Sonographic interrogation of the right and left upper and lower quadrants was performed to evaluate for ascites. Mild to moderate ascites in the right upper and minimal ascites left upper quadrants are noted. There is moderate free fluid in the lower quadrants bilaterally. Marking was performed in the right lower quadrant at the area of largest pocket. Paracentesis was performed by Dr. Rowland. IMPRESSION: Moderate ascites. The marking was provided for Dr. Rowland for purpose of paracentesis. Dictated by: Dictated on workstation # [id number]
--- NOTE | 2020-01-25 12:25 | OPERATIVE REPORT ---
DATE OF SERVICE: 01/25/2020 PREOPERATIVE DIAGNOSIS: Recurrent symptomatic ascites. POSTOPERATIVE DIAGNOSIS: Recurrent symptomatic ascites. PROCEDURE: Paracentesis. SURGEON: Suzanne Calderon MD. ORAL SURGERY TECHNICIAN: Maurice Lucas APRN. ANESTHESIA: Local. ESTIMATED BLOOD LOSS: Minimal. FINDINGS: Slightly blood tinged clear transudative fluid. DISPOSITION: The patient tolerated the procedure well. INDICATIONS: The patient is a 64-year-old female who is diagnosed with acute myelogenous leukemia. She underwent chemotherapy as well as a bone marrow transplantation. During this process, she did develop renal failure and is now hemodialysis dependent. Since all this happened, she has developed recurrent symptomatic ascites and has had approximately 4 paracenteses done. She has had recurrent fluid accumulation and will require paracentesis. DESCRIPTION OF PROCEDURE: The abdomen was prepped and draped in standard surgical fashion. Before this, the abdomen was marked in the right lower abdominal quadrant. 1% lidocaine was then used to anesthetize the skin, subcutaneous tissue, muscle layers as well as the peritoneal lining. A vertical skin incision was then made using an 11 blade. Trocar and catheter were then introduced withdrawing of slightly blood tinged clear transudative fluid. The catheter was then advanced over the trocar without any resistance. Catheter was connected to band tubing and gravity drainage bag. The catheter was then cleaned and covered with sterile gauze followed by Op-Site. The patient tolerated the procedure well. We will continue drainage until she is asymptomatic and remove the catheter and place Dermabond and she may have followup with us when she has recurrent symptomatic ascites. Job ID: [id number] DocumentID: [id number] Dictated Date: 01/25/2020 11:34:15 Supervisor Electronics Testing Date: 01/25/2020 12:24:08 Dictated By: SUZANNE CALDERON MD
[2020-01-25 13:50] VITALS: BP 121/60
--- NOTE | 2020-01-25 13:50 | NUR ---
PARACENTESIS CATHETER NOT PRODUCING FURTHER OUTPUT. CATHETER DC'D. SOME CLEAR DRAINAGE NOTED THEN FROM PUNCTURE SITE. PUNCTURE SITE COVERED WITH SKIN GLUE, GAUZE ET OPSITE. PT WILL LEAVE OPSITE ON UNTIL TOMORROW. VOICED UNDERSTANDING TO AVOID BATHING OR SUBMERGING SITE UNTIL PUNCTURE SITE HEALED. PT AMB TO DC WITH WALKER WITHOUT DIFFICULTY.
== END 2020-01-25 13:55 | disposition home or self-care (01) ==
LOC: RAD 10:26
PROVIDERS: ATTEND Surgery
DX: R18.8 Other ascites (principal); E11.9 Type 2 diabetes mellitus without complications; E03.9 Hypothyroidism, unspecified; I10 Essential (primary) hypertension; K21.9 Gastro-esophageal reflux disease without esophagitis; N18.6 End stage renal disease; C95.90 Leukemia, unspecified not having achieved remission; Z79.4 Long term (current) use of insulin; Z79.899 Other long term (current) drug therapy
CPT/HCPCS: 49082; 76942

== ENCOUNTER 2020-02-23 10:25 | Outpatient (CLI) | payer MEDICARE ==
[2020-02-23 11:08] VITALS: BP 125/66
--- NOTE | 2020-02-23 11:47 | Diagnostic Imaging Report ---
INDICATION: Ascites. Ultrasound guidance was provided for Dr. Rowland for paracentesis. All 4 quadrants of the abdomen were evaluated for fluid. Large amount of ascites in the right lower quadrant is noted. Small amount of ascites in the left lower quadrant as well as the right left upper quadrants is seen. IMPRESSION: Moderate ascites with largest pocket in the right lower quadrant. Marking was provided for Dr. Rowland for paracentesis. Dictated by: Dictated on workstation # [id number]
--- NOTE | 2020-02-23 15:00 | NUR ---
SANDWICH TRAY AND DRINK PROVIDED AND PATIENT HAS BEEN MOVED SIDE TO SIDE AND SITTING UPRIGHT MULTIPLE TIMES, REMOVED 1500ML OF RED TINGED FLUID. THIS RN EDUCATED TO NOT TAKE BATH OR SUBMERGE IN WATER, SKINAFIX PLACED WITH OPSITE WITH NO FLUID DRAINING AT SITE. PATIENT AMUBLATES WITH WALKER UPON DISCHARGE.
--- NOTE | 2020-02-23 17:50 | OPERATIVE REPORT ---
DATE OF SERVICE: 02/23/2020 PREOPERATIVE DIAGNOSIS: Recurrent symptomatic ascites. POSTPROCEDURE DIAGNOSIS: Recurrent symptomatic ascites. PROCEDURE: Paracentesis with ultrasound guidance. SURGEON: Suzanne Calderon MD FINDINGS: A straw yellow transudative fluid. DISPOSITION: The patient tolerated the procedure well. INDICATIONS: The patient is a 64-year-old female who was diagnosed with leukemia approximately 2 years ago. She had initially tried a chemotherapy; however, this was resistant. She underwent a bone marrow transplant therapy at [facility]. Since that time, she has been receiving concurrent chemotherapy here. During the process of chemotherapy she did develop renal failure; however, does urinate and does not require hemodialysis at this time. She has developed recurrent episodes of ascites with the last paracentesis done approximately one month ago. She has reaccumulation of fluid and a positive fluid shift wave consistent with recurrent ascites. DESCRIPTION OF PROCEDURE: The abdomen was prepped and draped in standard surgical fashion and before this an ultrasound was performed and marked in the right lower abdominal quadrant. The skin, subcutaneous layers, muscle layers as well as the peritoneal lining were anesthetized using 1% lidocaine and a vertical skin incision made using 11 blade. The trocar and catheter were then were then advanced withdrawing of straw yellow transudative fluid and the catheter was advanced over the trocar without any resistance. The catheter was then connected to band tubing and gravity drainage bag. The catheter was then cleaned and covered with sterile gauze followed by Op-Site. The patient tolerated the procedure well. Once the abdomen decompresses and she is less symptomatic and there is minimal drainage, the catheter will be removed and Dermabond applied to the entry site. She may follow up with us at any time. Job ID: [id number] DocumentID: [id number] Dictated Date: 02/23/2020 11:46:54 Restaurant Greeter Date: 02/23/2020 17:49:20 Dictated By: SUZANNE CALDERON MD
== END 2020-02-23 15:05 | disposition home or self-care (01) ==
LOC: RAD 10:25
PROVIDERS: ATTEND Surgery
DX: R18.8 Other ascites (principal)
CPT/HCPCS: 49082; 76942

== ENCOUNTER 2020-08-15 14:00 | Emergency (ER) | payer MEDICARE ==
[~2020-08-15] VITALS: Ht 157 cm; Wt 77.0 kg
[~2020-08-15 14:00] MED LIST changes: +AMLO-251 PO; -AMLO10TA7 PO; +NF-SODBICA PO; -SODI650T PO
[2020-08-15] MEDS ORDERED: fentaNYL INJECTION 100 MCG/2 ML AMP IV ONE (14:03)
[2020-08-15] MEDS ORDERED: ROCURONIUM 50 MG/5 ML (ZEMURON) VIAL IV ONE (14:03)
[2020-08-15] MEDS ORDERED: ETOMIDATE IV SOLN 20 MG/10 ML VIAL IV ONE (14:03)
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
[2020-08-15 14:14] LABS: BASOPHILS % (AUTO) 1 % (0-10); HEMOGLOBIN 12.9 g/dL (11.5-16.0)
[2020-08-15 14:15] LABS: EOSINOPHILS % (AUTO) 0 % (0-10); HEMATOCRIT 38 % (35-52); LYMPHOCYTES % (AUTO) 17 % (12-44); MEAN CORPUSCULAR HEMOGLOBIN 35 pg (25-34); MEAN CORPUSCULAR HGB CONC 34 g/dL (32-36); MEAN CORPUSCULAR VOLUME 105 fL (80-99); MONOCYTES # (AUTO) 0.2 10^3/uL (0.0-1.0); MONOCYTES % (AUTO) 3 % (0-12); NEUTROPHILS # (AUTO) 4.5 10^3/uL (1.8-7.8); NEUTROPHILS % (AUTO) 78 % (42-75); WHITE BLOOD COUNT 5.7 10^3/uL (4.3-11.0)
[2020-08-15 14:20] LABS: PLATELET COUNT 32 10^3/uL (130-400)
[2020-08-15 14:23] LABS: ALBUMIN 2.4 GM/DL (3.2-4.5)
[2020-08-15 14:24] LABS: INR 1.6 (0.8-1.4); POTASSIUM 3.1 MMOL/L (3.6-5.0); PROTHROMBIN TIME PATIENT 19.8 SEC (12.2-14.7)
[2020-08-15 14:25] LABS: CALCIUM 8.2 MG/DL (8.5-10.1)
[2020-08-15 14:26] LABS: TOTAL PROTEIN 8.2 GM/DL (6.4-8.2)
[2020-08-15 14:30] LABS: CREATININE SERUM 4.27 MG/DL (0.60-1.30)
[2020-08-15] MEDS ORDERED: IOHEXOL 350 MG/ML 100 ML (OMNIPAQUE 350) VIAL IV ONE (14:30)
[2020-08-15] MEDS ORDERED: HOLD METFORMIN - RECEIVED CONTRAST 20 ML VIAL IV SCH (14:30)
[2020-08-15] MEDS ORDERED: NS 100 ML (IVPB) BAG IV ONE (14:30)
--- NOTE | 2020-08-15 14:31 | Diagnostic Imaging Report ---
PROCEDURE: CT head wo r/o stroke. TECHNIQUE: Multiple contiguous axial images were obtained through the brain without the use of intravenous contrast. Auto Exposure Controls were utilized during the CT exam to meet ALARA standards for radiation dose reduction. INDICATION: Weakness. COMPARISON: Correlation is made with prior head CT from 10/13/2019. FINDINGS: The ventricles and sulci are stable. No sulcal effacement or midline shift is identified. No acute intra-axial or extra-axial hemorrhage is detected. The cisterns are patent. The visualized paranasal sinuses are clear apart from a small mucous retention cyst or polyp in left maxillary sinus. IMPRESSION: No acute intracranial process is detected. Dictated by: Dictated on workstation # [id number]
--- NOTE | 2020-08-15 14:42 | Diagnostic Imaging Report ---
INDICATION: Confusion. Frontal chest obtained at 02:35 p.m. and compared to 10/13/2019. Compared to the prior study, there is increased cardiomegaly. There is central vascular congestion with mild interstitial edema with some minimal infiltrate in the right base. There is no pneumothorax or pleural fluid. IMPRESSION: Increased cardiomegaly compared to the prior study with central vascular congestion and mild interstitial edema. There is some minimal infiltrate in the right base. Follow-up is recommended. Dictated by: Dictated on workstation # [id number]
--- NOTE | 2020-08-15 14:45 | Diagnostic Imaging Report ---
PROCEDURE: CT angiography of the head and CT angiography of the neck with and without contrast. TECHNIQUE: Contiguous noncontrast images were obtained from the skull base through the vertex. After intravenous contrast administration, helical CT angiography of the neck was performed. Source data was reformatted into 3D MIP projections. Delayed post contrast acquisition was also obtained. Auto Exposure Controls were utilized during the CT exam to meet ALARA standards for radiation dose reduction. INDICATION: Weakness and strokelike symptoms. COMPARISON: Correlation is made with noncontrast head CT performed earlier same day. FINDINGS: Delayed postcontrast images are without enhancing lesion. The CT angiographic portion of the exam demonstrates a three-vessel branching pattern to the aortic arch. Both common carotid arteries are widely patent. There is calcified plaque at the carotid bifurcations bilaterally but no high-grade stenosis is detected. Both internal carotid arteries are widely patent. There is significant calcified plaque at the carotid siphons bilaterally. The M1 and M2 segments of the right and left middle cerebral arteries are widely patent. No large branch occlusion is identified. Anterior cerebral arteries appear to be patent. Right and left posterior cerebral arteries are patent. The basilar artery is patent. The left vertebral artery is dominant. Both vertebral arteries appear to be widely patent. IMPRESSION: Essentially unremarkable CT angiogram of the head and neck. No thromboembolism or large branch occlusion is identified. Dictated by: Dictated on workstation # [id number]
--- NOTE | 2020-08-15 14:53 | NUR ---
1453-150/71, 65, 97%, RA 1454- 20MG ETOMIDATE 1455- OMAR 50MG [id number] 1457-FIRST ATTEMPT INTUBATION SUCCESSFUL, POSITIVE COLOR CHANGE, 7.5 ETT 22 AT THE TEETH, BILATERAL BREATH SOUNDS. 1500- 162/70, 95, 100%, BVM 1501- OG 1509- PROPROFOL 20MCG/KG/MIN 1615- PROPROFOL DECREASED TO 10MCG/KG/MIN 1619- PROPROFOL INCREASED TO 15MCG/KG/MIN 1621- FENTANYL 50MCG
[2020-08-15 14:54] LABS: FREE T4 (FREE THYROXINE) 0.97 NG/DL (0.70-1.48)
[2020-08-15] MEDS ORDERED: PROPOFOL DRIP (ICU) 100 ML IV ONE (14:59)
[2020-08-15 15:03] LABS: BAND NEUTROPHILS 22 %; LYMPHOCYTES % (MANUAL) 15 %; METAMYELOCYTES % 1 %; MONOCYTES % (MANUAL) 1 %; NEUTROPHILS % (MANUAL) 61 %
[2020-08-15 15:04] LABS: SPHEROCYTES SLIGHT; TOXIC GRANULATION/VACUOLAZATIO 2+
[2020-08-15 15:31] LABS: BILIRUBIN,URINE 2+ (NEGATIVE); CLARITY,URINE TURBID; GLUCOSE, URINE (UA) NEGATIVE (NEGATIVE); KETONES,URINE TRACE (NEGATIVE); LEUKOCYTE ESTERASE ,URINE 2+ (NEGATIVE); NITRITE,URINE NEGATIVE (NEGATIVE); PROTEIN,URINE 3+ (NEGATIVE)
[2020-08-15 15:38] LABS: COLOR,URINE DARK YELLOW
[2020-08-15 15:39] LABS: BACTERIA,URINE LARGE /HPF; RBC,URINE RARE /HPF; WBC,URINE 50-100 /HPF
[2020-08-15] MEDS ORDERED: cefTRIAXone FOR IV USE 1,000 MG in WATER (STERILE) FOR INJECTION 10 ML IV ONE (15:45)
[2020-08-15 15:49] LABS: AMPHETAMINE SCREEN, URINE NEGATIVE (NEGATIVE); BARBITURATE SCREEN URINE NEGATIVE (NEGATIVE); BENZODIAZEPINES SCREEN URINE NEGATIVE (NEGATIVE); CANNABINOID SCREEN, URINE NEGATIVE (NEGATIVE); COCAINE SCREEN URINE NEGATIVE (NEGATIVE); METHADONE STAT NEGATIVE (NEGATIVE); METHAMPHETAMINE SCREEN URINE S NEGATIVE (NEGATIVE); OPIATE SCREEN URINE NEGATIVE (NEGATIVE); OXYCODONE STAT NEGATIVE (NEGATIVE); PROPOXYPHENE STAT NEGATIVE (NEGATIVE); TRICYCLIC ANTIDEPRESSANTS SCRE NEGATIVE (NEGATIVE)
[2020-08-15] MEDS ORDERED: NS IV 1000 ML 1,000 ML ONE ×2 (16:14→18:28)
--- NOTE | 2020-08-15 17:02 | NUR ---
BED NUMBER FOR [facility] RECIEVED. ICU RM 18. CALLED KAI BABCOCK @ [facility]. THEY WILL NOT HAVE TRUCK AVAILABLE TO GO TO [place] FOR HOURS. CALLED [facility] TO REQUEST HELICOPTER. ACCEPTED. THEY ARE EN ROUTE TO FACILITY.
[2020-08-15] MEDS ORDERED: DexMEDEtomidine PRE MIX 100 ML IV SCH (17:15)
[2020-08-15] MEDS ORDERED: NOREPINEPHRINE 4 MG/250 ML 250 ML IV ONE (17:32)
[2020-08-15] MEDS ORDERED: NS IV 500 ML 500 ML ONE (18:05)
[2020-08-15 18:29] VITALS: BP 80/46
[2020-08-15] MEDS ORDERED: NS IV 500 ML 500 ML IV SCH (18:45)
[2020-08-15] MEDS ORDERED: NS IV 1000 ML 1,000 ML IV SCH (18:45)
[2020-08-15] MEDS ORDERED: NOREPINEPHRINE 4 MG/250 ML 250 ML IV SCH (18:45)
[2020-08-15] MEDS ORDERED: PROPOFOL INJECTION 50 ML IV SCH (18:45)
== END 2020-08-15 18:31 | disposition short-term general hospital (02) ==
LOC: EDUNIT# 14:00 → ER 14:02
DX: R41.82 Altered mental status, unspecified (principal); D69.6 Thrombocytopenia, unspecified; E11.9 Type 2 diabetes mellitus without complications; K21.9 Gastro-esophageal reflux disease without esophagitis; I10 Essential (primary) hypertension; Z83.3 Family history of diabetes mellitus; Z85.6 Personal history of leukemia; Z79.4 Long term (current) use of insulin
CPT/HCPCS: 31500; 51702; 70450; 70496; 70498; 71045; 80053; 80306; 81000; 84439; 84443; 85007; 85027; 85610; 87040; 87077; 87088; 87184; 87186; 93005; 99291; G0480; 36415; 80320